=== PATIENT | male | born 1945 | race Caucasian/White ===

== ENCOUNTER 2020-07-04 14:01 | Outpatient (CLI) | payer MEDICARE, SELFPAY ==
--- NOTE | 2020-07-04 15:45 | USCV_ITS ---
Dajuan Presley Age: 74 Gender: M : 1945 Exam Date: 07/04/2020 14:40 Ordering Phys: Nahomi Quintana Technologist: Exam Location: [facility] [place] Indication: MURMUR BP: 143 / 84 HR: 88 Rhythm: Sinus Technical Quality: Poor MEASUREMENTS (Male / Female) Normal Values 2D ECHO LV Diastolic Diameter PLAX 5.6 cm 4.2 - 5.9 / 3.9 - 5.3 cm LV Systolic Diameter PLAX 3.0 cm IVS Diastolic Thickness 1.2 cm 0.6 - 1.0 / 0.6 - 0.9 cm IVS Systolic Thickness 1.5 cm LVPW Diastolic Thickness 1.0 cm 0.6 - 1.0 / 0.6 - 0.9 cm LVPW Systolic Thickness 1.3 cm LVOT Diameter 2.1 cm LV Ejection Fraction 2D Teich 76.1 % LA Diameter 4.2 cm LA Width 4.6 cm LA Height 6.7 cm RA Width 4.3 cm RA Height 6.1 cm M-MODE LV Diastolic Diameter MM 6.4 cm 4.2 - 5.9 / 3.9 - 5.3 cm LV Systolic Diameter MM 4.7 cm LV Ejection Fraction MM Teich 52.3 % IVS Diastolic Thickness MM 1.2 cm 0.6 - 1.0 / 0.6 - 0.9 cm IVS Systolic Thickness MM 2.1 cm LVPW Diastolic Thickness MM 1.4 cm 0.6 - 1.0 / 0.6 - 0.9 cm LVPW Systolic Thickness MM 2.1 cm RV Diastolic Diameter MM 2.0 cm Aortic Annulus Diameter 4.4 cm LA Ao Ratio MM 1.0 MV E Point Septal Separation 1.0 cm DOPPLER AV Peak Velocity 118.0 cm/s LVOT Peak Velocity 75.0 cm/s AV Area Cont Eq vti 2.1 cm squared AV Area Cont Eq pk 2.1 cm squared MV Area PHT 5.0 cm squared Mitral E to A Ratio 1.1 MV E' Velocity 38.0 cm/s Mitral E to MV E' Ratio 5.8 Mitral E to LV E' Lateral Ratio 4.9 Mitral E to LV E' Septal Ratio 7.2 TR Peak Velocity 163.0 cm/s TR Peak Gradient 10.6 mmHg TV Peak E Velocity 76.0 cm/s Right Atrial Pressure 3.0 mmHg Pulmonary Artery Systolic Pressu 13.6 mmHg PV Peak Velocity 87.0 cm/s FINDINGS Left Ventricle Normal LV size and ejection fraction of 55%. No gross wall motion abnormalities. Segmental wall motion analysis is difficult because of the poor ultrasonic window. Right Ventricle Normal right ventricular size and systolic function. Right Atrium Mildly increased right atrial size. Left Atrium Mildly increased left atrial size. Mitral Valve No gross abnormalities noted Aortic Valve Thickened aortic valve. Tricuspid Valve Leaflets could not visualized well Pulmonic Valve Pulmonic valve not well visualized. Pericardium No pericardial effusion. Aorta Normal aortic annulus size. CONCLUSIONS Normal LV size and ejection fraction of 55%. No gross wall motion abnormalities. Segmental wall motion analysis is difficult because of the poor ultrasonic window. Mild biatrial enlargement. Thickened aortic valve No significant stenotic or regurgitant lesions There are no intracardiac masses. There is no pericardial effusion. Technically somewhat difficult study because of poor ultrasonic window. Compared to the study from 02/19/2017, there may not be a significant change Dr Nandini Zimmerman MD FACC (Electronically Signed) Final Date: 04 Jul 2020 18:07 S
== END 2020-07-04 14:02 | disposition home or self-care (01) ==
LOC: RAD 14:05
PROVIDERS: PCP Nurse Practitioner Family; Visit Provider Nurse Practitioner Family
DX: N18.9 Chronic kidney disease, unspecified (principal); R06.02 Shortness of breath; R01.1 Cardiac murmur, unspecified; I51.7 Cardiomegaly; I35.8 Other nonrheumatic aortic valve disorders; I25.10 Atherosclerotic heart disease of native coronary artery without angina pectoris; I50.9 Heart failure, unspecified
CPT/HCPCS: 80048; 83880; 93306

== ENCOUNTER → 2020-07-31 12:06 | Outpatient (BNVA) | payer MEDICARE, SELFPAY | PROVIDERS: PCP Nurse Practitioner Family; Visit Provider Nurse Practitioner Family | DX: I48.91 Unspecified atrial fibrillation (principal); I50.9 Heart failure, unspecified; Z20.822 Contact with and (suspected) exposure to COVID-19 | CPT/HCPCS: 87635 ==

== ENCOUNTER 2020-08-07 10:36 | Day surgery (SDC) | payer MEDICARE, SELFPAY ==
[2020-08-03 14:10] VITALS: BMI 38.7
[2020-08-07 11:15] VITALS: BP 185/131; PULSE 83; RESP 18; TEMP 36.3; O2SAT 94
--- NOTE | 2020-08-07 11:22 | ECG_ITS ---
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 Measurements Intervals [place] Rate: 74 P: [place]: QRS: -21 QRSD: 129 T: 30 QT: 406 QTc: 453 Interpretive Statements ATRIAL FIBRILLATION BORDERLINE LEFT AXIS DEVIATION [QRS AXIS < -20] POSSIBLE RIGHT VENTRICULAR CONDUCTION DELAY [RSR (QR) IN V1/V2] No previous ECG available for comparison Electronically Signed On 08-07-2020 17:07:01 CDT by Derian Garcia M.D. [id number]
[2020-08-07] MEDS: sodium chloride 0.9% 1,000 ML 30 ML IV (11:47)
--- NOTE | 2020-08-07 11:53 | P.ANESASSM_ITS ---
Pre-Anesthetic Assessment Pre-Anesthetic Assessment: Height/Weight: Height 1.78 m Weight 122.47 kg Temp Pulse Resp BP Pulse Ox 97.3 F L 83 18 185/131 94 08/07/20 11:15 08/07/20 11:15 08/07/20 11:15 08/07/20 11:15 08/07/20 11:15 Preop Diagnosis: afib Proposed Procedure: Operation Date: 08/07/20 12:00 Proposed Procedures p VIDAL 42607 12811 I48.91(Not Applicable) - Bonita Montoya MD s Cardioversion(Not Applicable) - Bonita Montoya MD Familial anesthetic complications: none Was Beta Gideon taken within 24 hours: Yes Was Clonidine taken within 24 hours: N/A Last intake: Intake Last Liquid Date 08/06/20 Last Liquid Time 23:00 Last Solid Date 08/06/20 Last Solid Time 19:00 Last Intake: 19:00 Social: Social History: No alcohol and No tobacco Exam: Pre-Anes Outpt Exam: alert, oriented x 3, clear to auscultation bilaterally and regular rate & rhythm (irregular) Airway: Submandibular: WNL Cervical ROM: WNL MP: 2 Dentition: Full (missing lower front) Pulmonary: Pulmonary: COPD, LIU and SOB CV/HEM: CV/HEM: Afib, CHF and HTN : : None reported Hepatic: Hepatic: None reported GI: GI: GERD (food related) Metabolic: Metabolic: Morbid obesity Musc/skel: Musc/skel: Lower Back Pain and OA/DJD Neuropsych: Neuropsych: None reported Anesthetic Plan: ASA status: 3 Anesthesia: MAC Risk of > 500 ml blood loss (7ml/kg in children): No Meds/Allergies Current Medications: Current Medications Generic Name Dose Route Start Last Admin Trade Name Freq PRN Reason Stop Dose Admin Sodium Chloride 1,000 mls @ 30 ml s/hr 08/07/20 11:15 08/07/20 11:47 Sodium Chloride 0.9% IV 08/08/20 11:14 30 mls/hr .Q24H GENESIS Administration PFSH Anesthesia PFSH: Medical History Arthritis ASHD (arteriosclerotic heart disease) BPH (benign prostatic hyperplasia) CHF (congestive heart failure) Chronic kidney disease Chronic migraine History of TIA (transient ischemic attack) HTN (hypertension) Surgical History S/P carpal tunnel release S/P knee replacement S/P shoulder surgery Family History Mother , AT AGE 76 BRAIN ANEURYSM No problems noted. Father , AT AGE 84 SIGNAL PROCESSING ENGINEER,HEART DISEASE Cancer PROSTATE CAD (coronary artery disease) Social History Smoking and tobacco status: former smoker Alcohol intake: unknown Adopted: No Caregiver/support person: No Lives independently: Yes Marital status: / Current occupational status: retired History of recent travel: No Current gender identity: Male Data Anesthesia Cardiac Studies: No Data to Display
--- NOTE | 2020-08-07 12:00 | USCV_ITS ---
Dajuan Presley Age: 74 Gender: M : 1945 Exam Date: 08/07/2020 12:27 Ordering Phys: Nahomi Quintana Technologist: STALIN Exam Location: [facility] [place] Indication: AFIB BP: / HR: Rhythm: Sinus Technical Quality: Good MEASUREMENTS (Male / Female) Normal Values Medications Patient given IV sedation by anesthesia service, for details please refer to the anesthesia report. Complications None. Proc. Components VIDAL was performed at multiple levels. FINDINGS Left Ventricle Normal left ventricular cavity size. Normal left ventricular systolic function. Left ventricular ejection fraction is estimated at 60 %. No diagnostic regional wall motion abnormalities. Right Ventricle Normal right ventricular size and systolic function. Right Atrium Mildly increased right atrial size. Left Atrium Mildly increased left atrial size. LA Appendage Normal left atrial appendage. Normal flow velocities in the left atrial appendage. No thrombus visualized in the left atrial appendage. IA Septum Lipomatous hypertrophy of interatrial septum. Aneurysmal interatrial septum. No evidence of ASD or PFO by color Doppler or agitated saline study. Mitral Valve Structurally normal mitral valve. No mitral valve stenosis. Trace mitral valve regurgitation. Aortic Valve Structurally normal trileaflet aortic valve. No aortic valve stenosis. Trace aortic valve regurgitation. Tricuspid Valve Structurally normal tricuspid valve. Mild tricuspid valve regurgitation. Pulmonic Valve Structurally normal pulmonic valve. No pulmonary valve stenosis. Trace pulmonary valve regurgitation. Pericardium No pericardial effusion. Aorta Normal size aortic root and proximal ascending aorta. No evidence of aortic dilation aneurysm or dissection. CONCLUSIONS 1. Normal left ventricular cavity size. Normal left ventricular systolic function. Left ventricular ejection fraction is estimated at 60 %. No diagnostic regional wall motion abnormalities. 2. Normal right ventricular size and systolic function. 3. Mild biatrial enlargement. 4. Lipomatous hypertrophy of interatrial septum. Aneurysmal interatrial septum. No evidence of ASD or PFO by color Doppler or agitated saline study. 5. No left atrial or left atrial appendage thrombus visualized. Bonita Montoya MD (Electronically Signed) Final Date: 10 August 2020 16:12 S
--- NOTE | 2020-08-07 12:02 | P.HP_ITS ---
Same Day Surgery H&P Indication for Procedure/HPI DATE OF PROCEDURE: August 07, 2020 CHIEF COMPLAINT/INDICATIONFOR SURGICAL PROCEDURE: 72 yo man with symptomatic atrial fibrillation presented for elective cardioversion. He has h/o non obstructive CAD be coronary angiogram, BPH, HTN, h/o TIA, obesity and preserved LV function on last TTE. He is currently on xarelto and metoprolol. PREOP DIAGNOSIS: afib PLANNED PROCEDRUE: Operation Date: 08/07/20 12:00 Proposed Procedures p VIDAL [id number] 99607 I48.91(Not Applicable) - Bonita Montoya MD s Cardioversion(Not Applicable) - Bonita Montoya MD Medications/Allergies* Home Medications Medication Instructions Recorded Confirmed Type albuterol sulfate 90 mcg/actuation 2 puff INHALATION Q6H PRN 05/04/19 08/03/20 History aerosol inhaler potassium chloride 10 mEq 10 meq PO DAILY 05/04/19 08/03/20 History capsule,extended release tamsulosin 0.4 mg capsule 0.4 mg PO DAILY 05/04/19 08/03/20 History lisinopril-hydrochlorothiazide 1 tab PO DAILY 08/03/20 08/03/20 History oxycodone 15 mg PO TID PRN 08/03/20 08/03/20 History Allergies/Adverse Reactions Allergy/AdvReac Type Severity Reaction Status Date / Time pentazocine [From Guera] Allergy Unknown Unknown Verified 06/20/20 14:31 Current Medications: Generic Name Dose Route Start Last Admin Trade Name Freq PRN Reason Stop Dose Admin Sodium Chloride 1,000 mls @ 30 mls/hr 08/07/20 11:15 08/07/20 11:47 Sodium Chloride 0.9% IV 08/08/20 11:14 30 mls/hr .Q24H GENESIS Administration Pertinent History/Comorbid Conditions* Medical History (Updated 06/06/20 @ 15:56 by AARON Hong) Arthritis ASHD (arteriosclerotic heart disease) BPH (benign prostatic hyperplasia) CHF (congestive heart failure) Chronic kidney disease Chronic migraine History of TIA (transient ischemic attack) HTN (hypertension) Surgical History (Updated 06/06/20 @ 15:10 by AARON Hong) S/P carpal tunnel release S/P knee replacement S/P shoulder surgery Family History (Updated 05/18/19 @ 15:04 by HARMONY Mccracken) Father, AT AGE 84 FIBER OPTIC SPLICER,HEART DISEASE Mother, AT AGE 76 BRAIN ANEURYSM CAD (coronary artery disease) Father Cancer Father PROSTATE Social History Smoking and tobacco status: former smoker Alcohol intake: unknown Adopted: No Caregiver/support person: No Lives independently: Yes Marital status: / Current occupational status: retired History of recent travel: No Current gender identity: Male Pertinent Exam Findings alert, oriented x 3 and procedure specific exam findings (irregularly iregular.) Recommendations Surgery/Procedure today Coding Level of Care Code 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
[2020-08-07 12:55] VITALS: BP 127/84; PULSE 70; RESP 16; TEMP 36; O2SAT 89
--- NOTE | 2020-08-07 13:00 | PM.ACPR ---
Procedure/Consent Time out: Time Out Performed: Yes Consent: Consent for Procedure: Consent obtained from patient, Risks & Benefits reviewed and Agrees to proceed with procedure Procedure Narrative: VIDAL Procedure note Indication: Symptomatic atrial fibrillation Sedation: Propofol by anesthesia The patient was brought down to the GI lab. Procedure was explained to the patient in detail and informed consent was obtained. Timeout was called. After achieving adequate sedation, the probe was inserted on first attempt. No blood on the probe post procedure. Prelim report: Normal left ventricle size and systolic function. No left atrial or left atrial appendage mass or thrombus visualized. No ASD or PFO identified. Full report to follow. Cardioversion procedure note. Indication: Symptomatic atrial fibrillation Anticoagulation: Xarelto Sedation: Propofol by anesthesia Pads were placed anteroposteriorly. After ensuring no left atrial/left atrial appendage thrombus decision was made to proceed with cardioversion. [He received 150 J of synchronized biphasic shock ?1 with voodoo of normal sinus rhythm. Patient tolerated the procedure well. Recovery: In unit Disposition: Patient to be discharged later today. Dose of metoprolol tartrate was decreased to 25 mg twice a day. Patient was started on amiodarone 200 mg twice a day for 3 weeks and then 200 mg daily. Follow-up with Ms. Quintana in [facility] for follow-up EKG in 1 to 2 weeks. Acute Procedures Epistaxis Control: Time out performed: Yes
--- NOTE | 2020-08-07 13:04 | ECG_ITS ---
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 Measurements Intervals [place] Rate: 60 P: 269 AK: 155 QRS: -26 QRSD: 114 T: -20 QT: 431 QTc: 433 Interpretive Statements SINUS RHYTHM BORDERLINE LEFT AXIS DEVIATION [QRS AXIS < -20] MODERATE INTRAVENTRICULAR CONDUCTION DELAY [110+ ms QRS DURATION] MODERATE ST DEPRESSION [0.05+ mV ST DEPRESSION] Compared to ECG 08/07/2020 11:34:48 Intraventricular conduction delay now present ST (T wave) deviation now present Atrial fibrillation no longer present Electronically Signed On 08-07-2020 17:05:54 CDT by Derian Garcia M.D. [email or web address].[email or web address] infantsC[employer]other[employer].[facility].[employer]/store/OM/[id number]
[2020-08-07 13:10] VITALS: BP 133/86; PULSE 63; RESP 20; O2SAT 96
[2020-08-07 13:23] VITALS: PULSE 61; RESP 20; O2SAT 92
[2020-08-07 13:49] LABS: Basophils % 0.5 %; Eosinophils # 0.1 10^3/uL (0.0-0.8); Hematocrit 49.8 % (42.0-52.0); Hemoglobin 16.4 g/dL (11.7-16.6); Lymphocytes # 1.9 10^3/uL (0.8-4.8); Lymphocytes % 29.7 %; Mean Corpuscular HGB Conc 32.9 g/dL (30.0-36.0); Mean Corpuscular Hemoglobin 32.5 pg (28.0-34.0); Mean Corpuscular Volume 98.6 fL (80-94); Mean Platelet Volume 11.9 fL (7.4-10.4); Monocytes # 0.6 10^3/uL (0.2-0.9); Monocytes % 9.3 %; Neutrophils # 3.77 10^3/uL (1.8-7.7); Neutrophils % 58.2 %; Nucleated Red Blood Cells % 0 %; Platelet Count 106 10^3/cmm (130-400); Red Blood Count 5.05 10^6/uL (4.1-5.3); Red Cell Distribution Width 13.3 % (12.1-15.1); White Blood Count 6.5 10^3/uL (4.0-10.0)
[2020-08-07 14:08] LABS: Alanine Aminotransferase 13 U/L (0-41); Albumin Level 3.8 g/dL (3.5-5.2); Alkaline Phosphatase 71 IU/L (40-130); Anion Gap 11.7 (5-19); Aspartate Amino Transferase 23 U/L (0-40); Blood Urea Nitrogen 13 mg/dL (8-23); Calcium 8.7 mg/dL (8.5-10.5); Carbon Dioxide 32 mmol/L (22-29); Chloride 97 mmol/L (98-107); Globulin 3.3 g/dL (1.3-4.6); Glucose 102 mg/dL (65-115); NT Pro B Type Natriuretic Pept 802 pg/mL (0-450); Osmolality Calculated 284 mOsm/kg (285-295); Potassium 3.7 mmol/L (3.5-5.1); Sodium 137 mmol/L (136-145); Thyroid Stimulating Hormone 1.89 uIU/mL (0.27-4.20); Total Bilirubin 0.6 mg/dL (0.15-1.2); Total Protein 7.1 g/dL (6.6-8.7)
--- NOTE | 2020-08-07 21:24 | ANE.PACU2 ---
Inpatient post-anesthesia follow up: Airway intact: Yes Vital signs: Temperature 96.8 F Pulse Rate 61 Respiratory Rate 20 Blood Pressure 133/86 Pulse Oximetry 92 Oxygen Delivery Me thod Room Air Oxygen Flow Rate 2 Fraction of Inspir ed Oxygen Hydration adequate: Yes Nausea and vomiting: No Pain level: 2 Mental status: Baseline
== END 2020-08-07 13:50 | disposition home or self-care (01) ==
PROVIDERS: Internal Medicine Cardiovascular Disease; PCP Nurse Practitioner Family; Visit Provider Nurse Practitioner Family
PROC: (CPT 93312; principal; 2020-08-07 12:00)
PROC: 5A2204Z Restoration of Cardiac Rhythm, Single (ICD-10-PCS; 2020-08-07 12:00)
DX: I48.91 Unspecified atrial fibrillation (principal); J44.9 Chronic obstructive pulmonary disease, unspecified; I13.0 Hypertensive heart and chronic kidney disease with heart failure and stage 1 through stage 4 chronic kidney disease, or unspecified chronic kidney disease; I50.9 Heart failure, unspecified; N18.9 Chronic kidney disease, unspecified; K21.9 Gastro-esophageal reflux disease without esophagitis; E66.01 Morbid (severe) obesity due to excess calories; Z68.38 Body mass index [BMI] 38.0-38.9, adult; N40.0 Benign prostatic hyperplasia without lower urinary tract symptoms; Z86.73 Personal history of transient ischemic attack (TIA), and cerebral infarction without residual deficits; Z87.891 Personal history of nicotine dependence; Z79.01 Long term (current) use of anticoagulants; Z79.891 Long term (current) use of opiate analgesic; M19.90 Unspecified osteoarthritis, unspecified site
CPT/HCPCS: 36415; 80053; 83880; 84443; 85025; 92960; 93005; 93312; 93318; 93320; 93325; 96360; J2704; J7030

== ENCOUNTER 2021-03-18 17:09 | Emergency (ER) | payer MEDICARE, SELFPAY ==
--- NOTE | 2021-03-18 17:29 | XRR_ITS ---
PROCEDURE INFORMATION: Exam: XR Chest Exam date and time: 03/18/2021 5:29 PM Age: 75 years old Clinical indication: Shortness of breath and other: Cp; Additional info: Dyspnea TECHNIQUE: Imaging protocol: XR of the chest. Views: 1 view. COMPARISON: No relevant prior studies available. FINDINGS: Lungs: Hyperinflated lungs. No consolidation. Pleural spaces: Unremarkable. No pleural effusion. No pneumothorax. Heart/Mediastinum: Unremarkable. No cardiomegaly. Bones/joints: Visualized osseous structures are intact. XR/XR chest 1V portable [id number] IMPRESSION: No acute findings.
[2021-03-18 17:34] VITALS: BP 151/83; PULSE 70; RESP 16; TEMP 36.5; O2SAT 96
[2021-03-18 19:07] LABS: Basophils % 0.4 %; Eosinophils # 0.1 10^3/uL (0.0-0.8); Eosinophils % 1.5 %; Hematocrit 50.2 % (42.0-52.0); Hemoglobin 16.6 g/dL (11.7-16.6); Lymphocytes # 2.9 10^3/uL (0.8-4.8); Lymphocytes % 31.6 %; Mean Corpuscular HGB Conc 33.1 g/dL (30.0-36.0); Mean Corpuscular Hemoglobin 31.9 pg (28.0-34.0); Mean Corpuscular Volume 96.5 fl (80-94); Mean Platelet Volume 10.8 fL (7.4-10.4); Monocytes # 0.9 10^3/uL (0.2-0.9); Monocytes % 9.6 %; Neutrophils # 5.19 10^3/uL (1.8-7.7); Neutrophils % 56.4 %; Nucleated Red Blood Cells % 0 %; Platelet Count 132 10^3/cmm (130-400); Red Cell Distribution Width 13.3 % (12.1-15.1); White Blood Count 9.2 10^3/uL (4.0-10.0)
[2021-03-18 19:24] LABS: Troponin(5th) Baseline 37 ng/L (0-15)
[2021-03-18 19:25] LABS: Alanine Aminotransferase 21 U/L (0-41); Albumin Level 4.1 g/dL (3.5-5.2); Alkaline Phosphatase 111 IU/L (40-130); Anion Gap 16.7 (5-19); Aspartate Amino Transferase 26 U/L (0-40); Blood Urea Nitrogen 14 mg/dL (8-23); Calcium 8.7 mg/dL (8.5-10.5); Carbon Dioxide 27 mmol/L (22-29); Chloride 98 mmol/L (98-107); Globulin 2.8 g/dL (1.3-4.6); Glucose 98 mg/dL (65-115); Osmolality Calculated 286 mOsm/kg (285-295); Potassium 3.7 mmol/L (3.5-5.1); Sodium 138 mmol/L (136-145); Total Bilirubin 0.3 mg/dL (0.15-1.2); Total Protein 6.9 g/dL (6.6-8.7)
--- NOTE | 2021-03-18 19:29 | ECG_ITS ---
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1945 Requested By: Kaushik Swain Order Number: [id number] Reading MD: SONIDO DIAS Measurements Intervals [place] Rate: 68 P: -63 MI: 113 QRS: -12 QRSD: 128 T: 36 QT: 426 QTc: 453 Interpretive Statements JUNCTIONAL RHYTHM MODERATE INTRAVENTRICULAR CONDUCTION DELAY [110+ ms QRS DURATION] ABNORMAL RHYTHM ECG Compared to ECG 08/07/2020 13:18:26 Junctional rhythm now present Sinus rhythm no longer present ST (T wave) deviation no longer present Electronically Signed On 03-18-2021 20:55:11 WAREHOUSE SUPERVISOR 3RD SHIFT by SONIDO DIAS [email or web address].[email or web address]/store/[id number]
[2021-03-18 20:36] VITALS: BP 146/84; PULSE 94; RESP 22; O2SAT 96
[2021-03-18 20:57] LABS: NT Pro B Type Natriuretic Pept 125 pg/mL (0-450)
[2021-03-18 20:58] LABS: Troponin 5 2HR 35.59 ng/L (0-15)
[2021-03-18 20:59] LABS: Troponin 5 2HR Delta -1.41 ABS# (0-10)
--- NOTE | 2021-03-18 21:01 | W.ED.CHESTPA ---
HPI - Chest Pain General: Chief Complaint: Chest Pain Stated Complaint: Chest Pain SOB Time Seen by Provider: 03/18/21 20:10 Source: patient Mode of arrival: ambulatory Limitations: no limitations History of Present Illness: HPI narrative: 75-year-old male states that he is had a cough congestion and increased shortness of breath over the last 2 to 3 days he states he has been having pain also when he coughs. He is in no distress here no known sick contacts he is vaccinated for COVID. Denies any increased water weight denies any vomiting or diarrhea. Associated symptoms: Deny abdominal pain, fever(s), nausea or vomiting Review of Systems Const: Denies: fever(s), chills, body aches or change in appetite Eyes: Denies: blurry vision or eye discomfort ENMT: Denies: throat pain or dental pain Card: Reports: chest pain Resp: Reports: non-productive cough and wheezing GI: Denies: abdominal pain, nausea, vomiting or diarrhea : Denies: dysuria Musc: Denies: neck pain or back pain Skin/Breast: Denies: rash Neuro: Denies: headache(s) Psych: Denies: depression Matti/Lymph: Denies: easy bruising All/Imm: Denies: urticaria PFSH ED PFSH: Medical History Arthritis ASHD (arteriosclerotic heart disease) BPH (benign prostatic hyperplasia) CHF (congestive heart failure) Chronic kidney disease Chronic migraine History of TIA (transient ischemic attack) HTN (hypertension) Surgical History S/P carpal tunnel release S/P knee replacement S/P shoulder surgery Family History Mother , AT AGE 76 BRAIN ANEURYSM No problems noted. Father , AT AGE 84 HIM DIRECTOR,HEART DISEASE Cancer PROSTATE CAD (coronary artery disease) Social History Smoking and tobacco status: former smoker Alcohol intake: unknown Adopted: No Caregiver/support person: No Lives independently: Yes Marital status: / Current occupational status: retired History of recent travel: No Current gender identity: Male Physical Exam Const: COMMON NORMALS: no acute distress, patient oriented x3 and healthy appearing HENMT: COMMON NORMALS: normocephalic and atraumatic HEAD & SCALP: normocephalic and atraumatic Eye: COMMON NORMALS: Equal, round and reactive pupils present and EOMs intact bilaterally PUPIL: Yes Equal, round and reactive pupils present Neck/C-Spine: COMMON NORMALS: full ROM and supple Chest: COMMONS NORMALS: normal inspection of the chest and normal palpation of entire chest wall Resp: COMMON NORMALS: normal respiratory effort, No retractions, No use of accessory muscles and clear to auscultation bilaterally AUSCULTATION: clear to auscultation bilaterally Cardio: COMMON NORMALS: regular rate, regular rhythm and No murmurs present (Cardio) RATE: regular rate RHYTHM: regular rhythm GI: COMMON NORMALS: Normal to inspection, nondistended, normoactive bowel sounds present, Soft to palpation, non-tender and no masses PALPATION: Yes Soft to palpation Extremity: COMMON NORMALS: normal to inspection and full ROM Neuro: COMMON NORMALS: patient oriented x3, moves all extremities and no focal motor deficits Psych: COMMON NORMALS: mental status grossly normal, Normal thought process present and cooperative THOUGHT PROCESS: Normal thought process present Skin: COMMON NORMALS: no rashes or lesions noted and no wounds GENERAL SKIN EXAM: no rashes or lesions noted Course Vital Signs: Vital signs: Vital Signs Temperature 97.7 F 03/18/21 17:34 Pulse Rate 70 03/18/21 17:34 Respiratory Rate 16 03/18/21 17:34 Blood Pressure 151/83 03/18/21 17:34 Pulse Oximetry 96 03/18/21 17:34 MDM - Chest Pain MDM Narrative: Medical decision making narrative: Patient presents here with cough congestion along with some chest pain. Patient likely a COPD exacerbation repeat troponins negative no signs of acute coronary syndrome no signs of pulmonary embolism we will place him on 5 days steroids we will do an outpatient COVID he is to follow-up PCP and return if worsening. Lab Data: Labs: Lab Results 03/18/21 03/18/21 03/18/21 18:52 18:52 18:52 WBC 9.2 10^3/uL 10^3/ uL (4.0-10.0) RBC 5.20 10^6/uL 10^6 /uL (4.1-5.3) Hgb 16.6 g/dL g/dL (11.7-16.6) Hct 50.2 % % (42.0-52.0) MCV 96.5 fl H fl (80-94) MCH 31.9 pg pg (28.0-34.0) MCHC 33.1 g/dL g/dL (30.0-36.0) RDW 13.3 % % (12.1-15.1) Plt Count 132 10^3/cmm 10^3 /cmm (130-400) MPV 10.8 fL H fL (7.4-10.4) Neut % (Auto) 56.4 % % Lymph % (Auto) 31.6 % % Franklin % (Auto) 9.6 % % Eos % (Auto) 1.5 % % Baso % (Auto) 0.4 % % Neut # (Auto) 5.19 10^3/uL 10^3 /uL (1.8-7.7) Lymph # (Auto) 2.9 10^3/uL 10^3/ uL (0.8-4.8) Franklin # (Auto) 0.9 10^3/uL 10^3/ uL (0.2-0.9) Eos # (Auto) 0.1 10^3/uL 10^3/ uL (0.0-0.8) Baso # (Auto) 0.0 10^3/uL 10^3/ uL (0.0-0.1) Nucleated RBC % (a uto) 0 % % Nucleated RBCs # 0.0 /100WBC /100W BC Sodium 138 mmol/L mmol/L (136-145) Potassium 3.7 mmol/L mmol/L (3.5-5.1) Chloride 98 mmol/L mmol/L (98-107) Carbon Dioxide 27 mmol/L mmol/L (22-29) Anion Gap 16.7 (5-19) BUN 14 mg/dL mg/dL (8-23) Creatinine 0.9 mg/dL mg/dL (0.7-1.2) GFR Calculation Not Reportable Glucose 98 mg/dL mg/dL (65-115) Calculated Osmolal ity 286 mOsm/kg mOsm/ kg (285-295) Calcium 8.7 mg/dL mg/dL (8.5-10.5) Total Bilirubin 0.3 mg/dL mg/dL (0.15-1.2) AST 26 U/L U/L (0-40) ALT 21 U/L U/L (0-41) Alkaline Phosphata se 111 IU/L IU/L (40-130) Troponin T Baselin e 37 ng/L H ng/L (0-15) Troponin T 120 Min [place] Delta Troponin T NT-Pro-B Natriuret Pep Total Protein 6.9 g/dL g/dL (6.6-8.7) Albumin 4.1 g/dL g/dL (3.5-5.2) Globulin 2.8 g/dL g/dL (1.3-4.6) 03/18/21 03/18/21 18:52 20:34 WBC RBC Hgb Hct MCV MCH MCHC RDW Plt Count MPV Neut % (Auto) Lymph % (Auto) Franklin % (Auto) Eos % (Auto) Baso % (Auto) Neut # (Auto) Lymph # (Auto) Franklin # (Auto) Eos # (Auto) Baso # (Auto) Nucleated RBC % (a uto) Nucleated RBCs # Sodium Potassium Chloride Carbon Dioxide Anion Gap BUN Creatinine GFR Calculation Glucose Calculated Osmolal ity Calcium Total Bilirubin AST ALT Alkaline Phosphata se Troponin T Baselin e Troponin T 120 Min [place] 35.59 ng/L H ng/L (0-15) Delta Troponin T -1.41 ABS# L ABS# (0-10) NT-Pro-B Natriuret Pep 125 pg/mL pg/mL (0-450) Total Protein Albumin Globulin Discharge Plan Discharge Patient Disposition: Home Clinical Impression: Atypical chest pain, COPD exacerbation Condition: Stable Prescriptions: New prednisone 50 mg tablet 50 mg PO DAILY Qty: 5 RF: 0 No Action albuterol sulfate [ProAir HFA] 90 mcg/actuation HFA aerosol inhaler 2 puff INHALATION Q6H PRN (Reason: Allergy Symptoms) RF: 0 tamsulosin 0.4 mg capsule 0.4 mg PO DAILY RF: 0 potassium chloride 10 mEq capsule, extended release 10 meq PO DAILY RF: 0 zolpidem 6.25 mg tablet,ext release multiphase PO RF: 0 diphenhydramine HCl [Allergy (diphenhydramine)] 25 mg capsule 25 mg PO TID PRNRF: 0 lydrilb-kbghwnagew-YOG-caff [Butalbital Compound W/Codeine] 63-50-734-40 mg capsule 1 cap PO Q6H PRNRF: 0 amiodarone 200 mg tablet 100 mg PO DAILY Qty: 30 RF: 3 Hold Instructions: Doctor's Order furosemide 40 mg tablet 40 mg PO DAILY Qty: 30 RF: 1 metoprolol tartrate 25 mg tablet 25 mg PO BID Qty: 60 RF: 0 Hold Instructions: Doctor's Order lisinopril-hydrochlorothiazide 20-12.5 mg Tablet 1 tab PO DAILY RF: 0 oxycodone 15 mg Tablet 15 mg PO TID PRN (Reason: Pain) RF: 0 Discharge Orders: Discharge ED (Routine); Ordered 03/18/21 Ordered By: Elsy Beyer Referrals: Celine Andersen FNP [Primary Care Provider] - 1-3 days Discharge Diet: Advance as tolerated Discharge Activity: Resume usual activity Patient Instructions: COPD (Chronic Obstructive Pulmonary Disease) (ED) Coding Level of Care Code ED 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
[2021-03-18] MEDS: predniSONE 20 mg Tablet 60 MG PO (21:13)
[2021-03-18 21:27] VITALS: PULSE 66; RESP 16; O2SAT 96
[2021-03-18] MEDS: ipratropium-albuterol 3 mL Neb INHALATION (22:01)
[2021-03-18 22:08] VITALS: BP 146/92; PULSE 82; RESP 16; O2SAT 94
--- NOTE | 2021-03-18 23:29 | ECG_ITS ---
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1945 Requested By: Kaushik Swain Order Number: [id number] Stevie MD: SONIDO DIAS Measurements Intervals [place] Rate: 67 P: -88 KS: 109 QRS: -14 QRSD: 133 T: 30 QT: 423 QTc: 449 Interpretive Statements JUNCTIONAL RHYTHM WITH OCCASIONAL VENTRICULAR PREMATURE COMPLEXES INTRAVENTRICULAR CONDUCTION DELAY [130+ ms QRS DURATION] Compared to ECG 08/07/2020 13:18:26 Junctional rhythm now present Ventricular premature complex(es) now present Sinus rhythm no longer present ST (T wave) deviation no longer present Electronically Signed On 03-18-2021 20:55:09 CONTROL INTEGRATION ENGINEER by SONIDO DIAS [id number]
== END 2021-03-18 22:09 | disposition home or self-care (01) ==
PROVIDERS: Emergency Medicine; Nurse Practitioner Family; Emergency Provider Emergency Medicine; PCP Nurse Practitioner Family
DX: R07.89 Other chest pain (principal); J44.1 Chronic obstructive pulmonary disease with (acute) exacerbation; I11.0 Hypertensive heart disease with heart failure; I50.9 Heart failure, unspecified; Z86.73 Personal history of transient ischemic attack (TIA), and cerebral infarction without residual deficits; Z87.891 Personal history of nicotine dependence
CPT/HCPCS: 71045; 80053; 83880; 84484; 85025; 93005; 94640; 99283; J7512

== ENCOUNTER 2021-05-20 10:45 | Emergency (ER) | payer MEDICARE, SELFPAY ==
[2021-05-20 10:59] VITALS: BP 158/99; PULSE 93; RESP 16; O2SAT 96
--- NOTE | 2021-05-20 11:00 | ED_ITS ---
HPI - Headache General: Chief Complaint: Headache Stated Complaint: mirgaine Time Seen by Provider: 05/20/21 10:49 History of Present Illness: Mr Presley is a 75-year-old gentleman with significant past medical history of hypertension, heart failure, CAD, A. fib and history of stroke who presents to the emergency department due to severe headache. Onset of symptoms was 3 days ago and subacute. He denies known specific provoking factor and denies head trauma. He endorses left-sided headache with associated photosensitivity. Aching, sharp, throbbing in character. He denies other typical migraine features but does describe his headache as migraine. Course has persisted. Has tried home medications which typically improve symptoms without significant relief. Denies numbness, tingling, speech difficulty, or confusion. Does report an off-balance feeling. Other than mild shortness of breath he denies other significant changes in health. No infectious symptoms or neck stiffness. No other specific changes in health, exacerbating, or alleviating factors identified. Pertinent past history: migraines and other Onset (ago): day(s) Onset description: suddenly Location: left Severity: severe Exacerbating factors: light Treatments prior to arrival: migraine medication Review of Systems General: Reports: 10 or more systems reviewed and unremarkable except in HPI and below PFSH ED PFSH: Medical History Arthritis ASHD (arteriosclerotic heart disease) BPH (benign prostatic hyperplasia) CHF (congestive heart failure) Chronic kidney disease Chronic migraine History of TIA (transient ischemic attack) HTN (hypertension) Surgical History S/P carpal tunnel release S/P knee replacement S/P shoulder surgery Family History Mother , AT AGE 76 BRAIN ANEURYSM No problems noted. Father , AT AGE 84 COMMERCIAL REAL ESTATE MANAGER,HEART DISEASE Cancer PROSTATE CAD (coronary artery disease) Social History Smoking and tobacco status: former smoker Alcohol intake: unknown Adopted: No Caregiver/support person: No Lives independently: Yes Marital status: / Current occupational status: retired History of recent travel: No Current gender identity: Male Physical Exam Const: COMMON NORMALS: patient oriented x3 and alert GENERAL APPEARANCE: cooperative, well developed and other (uncomfortable due to headache) HENMT: COMMON NORMALS: normocephalic and atraumatic HEAD & SCALP: normo cephalic and atraumatic Eye: COMMON NORMALS: conjunctivae normal CONJUNCTIVA: Yes conjunctivae normal SCLERA: sclerae normal Neck/C-Spine: COMMON NORMALS: supple and no meningeal signs GENERAL: Yes trachea midline Resp: COMMON NORMALS: normal respiratory effort EFFORT & INSPECTION: Yes able to speak in complete sentences AUSCULTATION: diminished lung sounds Cardio: COMMON NORMALS: regular rate and regular rhythm RATE: regular rate RHYTHM: regular rhythm GI: COMMON NORMALS: Soft to palpation PALPATION: Yes Soft to palpation and No Tenderness to palpation present (GI) Extremity: GENERAL: Yes normal exam except as noted and No edema Neuro: COMMON NORMALS: patient oriented x3, CN's II-XII intact bilaterally, moves all extremities, no focal motor deficits and no sensory deficits noted SENSORIUM/ORIENTATION: Yes alert and No Orientation impaired MENINGEAL SIGNS: Yes no meningeal signs Psych: COMMON NORMALS: mental status grossly normal and Normal thought process present THOUGHT PROCESS: Normal thought process present Course ED course: - Patient was seen and evaluated by me at bedside - Patient placed on cardiac monitors, IV access obtained - Initial evaluation notable for uncomfortable appearance, patient has mask on due to degree of photosensitivity - Labs and xrays personally interpreted by me - Headache treatment ordered - Labs notable for No leukocytosis, normal hemoglobin. Metabolic panel with hyperglycemia without evidence of DKA, discussed with patient. - Given complex past medical history including history of intracranial hemorrhage and severity of patient's reported headache imaging is warranted. Imaging notable for no acute intracranial abnormality to explain symptoms. Chest x-ray without lobar consolidation or pneumothorax. - Upon serial reexamination after treatment the patient was initially similar however after additional headache treatment ordered the patient had marked improvement in headache with near complete resolution. Steroids ordered for additional prophylaxis. - Based on patient history, evaluation, and testing as interpreted the most likely cause of the patient's condition is [] - The results of ED evaluation were discussed with the patient including prescriptions and/or symptomatic cares (if applicable) including appropriate and responsible use, followup plan, and return precautions. The patient verbalized understanding and felt safe for discharge. - Patient discharged in satisfactory condition. Note: Click bubbles or prepopulated mireles in note writing are used for assistance with data collection and billing and are inherently more limited than narrative and other text portions of this note. Please use narrative for additional clinical history and defer to narrative/free test for any case of contradictory information. If information appears in only free text or click bubble it should be considered present or absent as reported. Please contact note senior grant writer for clarifications of clinical information or contradictory information. MDM is a brief summary, contradictory or erroneous seeming information should be clarified and full note should be reviewed. Vital Signs: Vital signs: Vital Signs Temperature 97.8 F 05/20/21 11:08 Pulse Rate 86 05/20/21 11:08 Respiratory Rate 18 05/20/21 12:33 Blood Pressure 144/100 05/20/21 11:08 Pulse Oximetry 95 05/20/21 11:08 MDM - Headache Medical Decision Making 75-year-old gentleman with complex past medical history including history of intracranial hemorrhage presenting with severe headache. No focal neurologic deficits. Symptom description likely migrainous in nature with history of migraines. Markedly improved with second line headache treatment. Satisfactory for outpatient management. Medical Records I reviewed the patient's medical records. Lab Data I reviewed the patient's lab results. : 05/20/21 11:15 05/20/21 11:[address] 05/20/21 11:02 IMPRESSION: 1. No evidence of intracranial hemorrhage or mass effect. 2. Moderate small vessel changes with moderate parenchymal volume loss. 3. Prior postoperative changes LEFT frontoparietal pterional craniotomy with mild postoperative soft tissue thickening or trace fluid deep to the craniotomy measuring 4.7 mm. 4. No acute intracranial findings. Chest X-Ray 05/20/21 11:05 IMPRESSION: No acute cardiopulmonary abnormality. Laboratory Results WBC 6.0 10^3/uL (4.0-10.0) 05/20/21 11:15 RBC 4.74 10^6/uL (4.1-5.3) 05/20/21 11:15 Hgb 15.7 g/dL (11.7-16.6) 05/20/21 11:15 Hct 46.6 % (42.0-52.0) 05/20/21 11:15 MCV 98.3 fl (80-94) H 05/20/21 11:15 MCH 33.1 pg (28.0-34.0) 05/20/21 11:15 MCHC 33.7 g/dL (30.0-36.0) 05/20/21 11:15 RDW 12.7 % (12.1-15.1) 05/20/21 11:15 Plt Count 125 10^3/cmm (130-400) L 05/20/21 11:15 MPV 11.2 fL (7.4-10.4) H 05/20/21 11:15 Neut % (Auto) 65.5 % 05/20/21 11:15 Lymph % (Auto) 25.0 % 05/20/21 11:15 [place] % (Auto) 6.3 % 05/20/21 11:15 Eos % (Auto) 2.2 % 05/20/21 11:15 Baso % (Auto) 0.5 % 05/20/21 11:15 Neut # (Auto) 3.93 10^3/uL (1.8-7.7) 05/20/21 11:15 Lymph # (Auto) 1.5 10^3/uL (0.8-4.8) 05/20/21 11:15 [place] # (Auto) 0.4 10^3/uL (0.2-0.9) 05/20/21 11:15 Eos # (Auto) 0.1 10^3/uL (0.0-0.8) 05/20/21 11:15 Baso # (Auto) 0.0 10^3/uL (0.0-0.1) 05/20/21 11:15 Nucleated RBC % (auto) 0 % 05/20/21 11:15 Nucleated RBCs # 0.0 /100WBC 05/20/21 11:15 Sodium 139 mmol/L (136-145) 05/20/21 11:15 Potassium 3.7 mmol/L (3.5-5.1) 05/20/21 11:15 Chloride 99 mmol/L (98-107) 05/20/21 11:15 Carbon Dioxide 30 mmol/L (22-29) H 05/20/21 11:15 Anion Gap 13.7 (5-19) 05/20/21 11:15 BUN 13 mg/dL (8-23) 05/20/21 11:15 Creatinine 1.0 mg/dL (0.7-1.2) 05/20/21 11:15 GFR Calculation Not Reportable 05/20/21 11:15 Glucose 236 mg/dL (65-115) H 05/20/21 11:15 Calculated Osmolality 296 mOsm/kg (285-295) H 05/20/21 11:15 Calcium 9.5 mg/dL (8.5-10.5) 05/20/21 11:15 Total Bilirubin 0.4 mg/dL (0.15-1.2) 05/20/21 11:15 AST 24 U/L (0-40) 05/20/21 11:15 ALT 15 U/L (0-41) 05/20/21 11:15 Alkaline Phosphatase 89 IU/L (40-130) 05/20/21 11:15 Total Protein 6.8 g/dL (6.6-8.7) 05/20/21 11:15 Albumin 4.3 g/dL (3.5-5.2) 05/20/21 11:15 Globulin 2.5 g/dL (1.3-4.6) 05/20/21 11:15 Urine Color Straw (Yellow) 05/20/21 11:10 Urine Appearance Clear (CLEAR) 05/20/21 11:10 Urine pH 7 (5-7) 05/20/21 11:10 Ur Specific [place] 1.015 (1.005-1.030) 05/20/21 11:10 Urine Protein Neg (Negative) 05/20/21 11:10 Urine Glucose (UA) 4+ (Normal) H 05/20/21 11:10 Urine Ketones Negative (Negative) 05/20/21 11:10 Urine Blood Neg (Negative) 05/20/21 11:10 Urine Nitrate Negative (Negative) 05/20/21 11:10 Urine Bilirubin Neg (Negative) 05/20/21 11:10 Urine Urobilinogen Norm mg/dL (Negative) 05/20/21 11:10 Ur Leukocyte Esterase Negative (Negative) 05/20/21 11:10 EKG Data EKG 1: I personally reviewed and interpreted this EKG as follows: EKG interpretation date: 05/20/21 EKG interpretation time: Interpretation: Twelve-lead EKG shows a regular rhythm at a rate of 77. AK interval 141, QRS duration 123, QTc 425. Normal axis. Interpretation: Sinus rhythm. Interventricular conduction delay. Discharge Plan Discharge Patient Disposition: Home Clinical Impression: Headache Condition: Stable Prescriptions: No Action albuterol sulfate [ProAir HFA] 90 mcg/actuation HFA aerosol inhaler 2 puff INHALATION Q6H PRN (Reason: Allergy Symptoms) 0RF tamsulosin 0.4 mg capsule 0.4 mg PO DAILY 0RF potassium chloride 10 mEq capsule, extended release 10 meq PO DAILY 0RF zolpidem 6.25 mg tablet,ext release multiphase 6.25 mg PO BEDTIME 0RF diphenhydramine HCl [Allergy (diphenhydramine)] 25 mg capsule 25 mg PO TID PRN (Reason: Allergic Reaction) 0RF lisinopril-hydrochlorothiazide 20-12.5 mg Tablet 1 tab PO DAILY 0RF oxycodone 15 mg Tablet 15 mg PO TID PRN (Reason: Pain) 0RF meloxicam 15 mg tablet 15 mg PO DAILY 0RF Vitamin D2 10 mcg (400 unit) Tablet 10 mcg PO DAILY 0RF magnesium 250 mg Tablet 250 mg PO DAILY 0RF Lotemax SM 0.38 % drops,gel 1 drp ophthalmic (eye) BID 0RF Rx Instructions: 1 drop affected eye twice a day Discharge Orders: Discharge ED (Routine); Ordered 05/20/21 Ordered By: Gonsalo James Referrals: Celine Andersen FNP [Primary Care Provider] - Discharge Diet: Usual diet Discharge Activity: Resume usual activity Activity Restrictions/Additional Instructions: Thank you for visiting the emergency department. You were seen and evaluated for headache. The exact cause of your symptoms is unclear though likely related to underlying headache disorder. Please follow-up with your primary care provider and neurologist. Please return to the emergency department for recurrent symptoms, any new neurologic deficit, or anything else that you are concerned about and feel needs emergency department evaluation. 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
--- NOTE | 2021-05-20 11:00 | ED_ITS ---
HPI - Headache General: Chief Complaint: Headache Stated Complaint: solitariogaine Time Seen by Provider: 05/20/21 10:49 Source: patient Mode of arrival: EMS Limitations: no limitations History of Present Illness: [id number] male presents emergency room with headache. Previously a similar headache and was concerned that he was having a stroke again evidently reports he had a hemorrhagic stroke he is not had difficulty with speech speech swallowing or vision began relatively suddenly a few hours ago. MD elicited complaint: headache Onset (ago): hour(s) Onset description: suddenly Quality & Timing: throbbing Context: occurred at rest Associated symptoms: Deny chest pain, confusion, cough, diaphoresis, eye pain, eye redness, fever(s), lightheadedness, loss of vision, malaise, nausea, neck stiffness, numbness, paresthesias, photophobia, pre-syncope, rash, seizures, short of breath, sound sensitivity, syncope, vomiting or weakness Treatments prior to arrival: none Review of Systems Const: Denies: fever(s), malaise or diaphoresis ENMT: Denies: throat pain, ear or mastoid pain, nasal discharge or nasal congestion Card: Denies: chest pain, lightheadedness, syncope or pre-syncope Resp: Denies: dyspnea, productive cough or non-productive cough GI: Denies: nausea or vomiting : Denies: flank pain, dysuria, urinary frequency or urinary urgency Skin/Breast: Denies: rash Neuro: Denies: confusion PFSH ED PFSH: Medical History Arthritis ASHD (arteriosclerotic heart disease) BPH (benign prostatic hyperplasia) CHF (congestive heart failure) Chronic kidney disease Chronic migraine History of TIA (transient ischemic attack) HTN (hypertension) Surgical History S/P carpal tunnel release S/P knee replacement S/P shoulder surgery Family History Mother , AT AGE 76 BRAIN ANEURYSM No problems noted. Father , AT AGE 84 PELLET POST INSPECTOR,HEART DISEASE Cancer PROSTATE CAD (coronary artery disease) Social History Smoking and tobacco status: former smoker Alcohol intake: unknown Adopted: No Caregiver/support person: No Lives independently: Yes Marital status: / Current occupational status: retired History of recent travel: No Current gender identity: Male Physical Exam Const: GENERAL APPEARANCE: cooperative and comfortable ORIENTATION/CO NSCIOUSNESS: Yes awake, Yes oriented to person, Yes oriented to place and Yes oriented to time HENMT: COMMON NORMALS: normocephalic and atraumatic HEAD & SCALP: normocephalic and atraumatic Eye: DIRECT OPHTHALMOSCOPY: No photophobia Neck/C-Spine: COMMON NORMALS: no JVD Resp: COMMON NORMALS: normal respiratory effort, No retractions, No use of accessory muscles and clear to auscultation bilaterally AUSCULTATION: clear to auscultation bilaterally Cardio: COMMON NORMALS: no JVD, regular rate, regular rhythm and No murmurs present (Cardio) RATE: regular rate RHYTHM: regular rhythm GI: COMMON NORMALS: Soft to palpation and No hepatosplenomegaly present AUSCULTATION: Yes normoactive bowel sounds PALPATION: Yes Soft to palpation, No Tenderness to palpation present (GI), No Guarding due to palpation present (GI) and Yes No hepatosplenomegaly present Extremity: COMMON NORMALS: normal to inspection, capillary refill normal, no clubbing, cyanosis or edema, no calf tenderness and no pedal edema Neuro: SENSORIUM/ORIENTATION: Yes oriented to person, Yes oriented to place and Yes oriented to time Skin: COMMON NORMALS: no rashes or lesions noted GENERAL SKIN EXAM: no rashes or lesions noted Course Vital Signs: Vital signs: Vital Signs Temperature 97.8 F 05/20/21 11:08 Pulse Rate 86 05/20/21 11:08 Respiratory Rate 18 05/20/21 12:33 Blood Pressure 144/100 05/20/21 11:08 Pulse Oximetry 95 05/20/21 11:08 MDM - Headache Medical Decision Making Scan is negative patient improved wishes to discharge home. Discharge patient home follow-up as needed if has recurrence change symptoms return. Follow-up with primary care doctor to recheck blood pressure within the week. Medical Records I reviewed the patient's medical records. Lab Data I reviewed the patient's lab results. : 05/20/21 11:15 05/20/21 11:[address] 05/20/21 11:02 IMPRESSION: 1. No evidence of intracranial hemorrhage or mass effect. 2. Moderate small vessel changes with moderate parenchymal volume loss. 3. Prior postoperative changes LEFT frontoparietal pterional craniotomy with mild postoperative soft tissue thickening or trace fluid deep to the craniotomy measuring 4.7 mm. 4. No acute intracranial findings. Chest X-Ray 05/20/21 11:05 IMPRESSION: No acute cardiopulmonary abnormality. Laboratory Results WBC 6.0 10^3/uL (4.0-10.0) 05/20/21 11:15 RBC 4.74 10^6/uL (4.1-5.3) 05/20/21 11:15 Hgb 15.7 g/dL (11.7-16.6) 05/20/21 11:15 Hct 46.6 % (42.0-52.0) 05/20/21 11:15 MCV 98.3 fl (80-94) H 05/20/21 11:15 MCH 33.1 pg (28.0-34.0) 05/20/21 11:15 MCHC 33.7 g/dL (30.0-36.0) 05/20/21 11:15 RDW 12.7 % (12.1-15.1) 05/20/21 11:15 Plt Count 125 10^3/cmm (130-400) L 05/20/21 11:15 MPV 11.2 fL (7.4-10.4) H 05/20/21 11:15 Neut % (Auto) 65.5 % 05/20/21 11:15 Lymph % (Auto) 25.0 % 05/20/21 11:15 [place] % (Auto) 6.3 % 05/20/21 11:15 Eos % (Auto) 2.2 % 05/20/21 11:15 Baso % (Auto) 0.5 % 05/20/21 11:15 Neut # (Auto) 3.93 10^3/uL (1.8-7.7) 05/20/21 11:15 Lymph # (Auto) 1.5 10^3/uL (0.8-4.8) 05/20/21 11:15 [place] # (Auto) 0.4 10^3/uL (0.2-0.9) 05/20/21 11:15 Eos # (Auto) 0.1 10^3/uL (0.0-0.8) 05/20/21 11:15 Baso # (Auto) 0.0 10^3/uL (0.0-0.1) 05/20/21 11:15 Nucleated RBC % (auto) 0 % 05/20/21 11:15 Nucleated RBCs # 0.0 /100WBC 05/20/21 11:15 Sodium 139 mmol/L (136-145) 05/20/21 11:15 Potassium 3.7 mmol/L (3.5-5.1) 05/20/21 11:15 Chloride 99 mmol/L (98-107) 05/20/21 11:15 Carbon Dioxide 30 mmol/L (22-29) H 05/20/21 11:15 Anion Gap 13.7 (5-19) 05/20/21 11:15 BUN 13 mg/dL (8-23) 05/20/21 11:15 Creatinine 1.0 mg/dL (0.7-1.2) 05/20/21 11:15 GFR Calculation Not Reportable 05/20/21 11:15 Glucose 236 mg/dL (65-115) H 05/20/21 11:15 Calculated Osmolality 296 mOsm/kg (285-295) H 05/20/21 11:15 Calcium 9.5 mg/dL (8.5-10.5) 05/20/21 11:15 Total Bilirubin 0.4 mg/dL (0.15-1.2) 05/20/21 11:15 AST 24 U/L (0-40) 05/20/21 11:15 ALT 15 U/L (0-41) 05/20/21 11:15 Alkaline Phosphatase 89 IU/L (40-130) 05/20/21 11:15 Total Protein 6.8 g/dL (6.6-8.7) 05/20/21 11:15 Albumin 4.3 g/dL (3.5-5.2) 05/20/21 11:15 Globulin 2.5 g/dL (1.3-4.6) 05/20/21 11:15 Urine Color Straw (Yellow) 05/20/21 11:10 Urine Appearance Clear (CLEAR) 05/20/21 11:10 Urine pH 7 (5-7) 05/20/21 11:10 Ur Specific [place] 1.015 (1.005-1.030) 05/20/21 11:10 Urine Protein Neg (Negative) 05/20/21 11:10 Urine Glucose (UA) 4+ (Normal) H 05/20/21 11:10 Urine Ketones Negative (Negative) 05/20/21 11:10 Urine Blood Neg (Negative) 05/20/21 11:10 Urine Nitrate Negative (Negative) 05/20/21 11:10 Urine Bilirubin Neg (Negative) 05/20/21 11:10 Urine Urobilinogen Norm mg/dL (Negative) 05/20/21 11:10 Ur Leukocyte Esterase Negative (Negative) 05/20/21 11:10 Discharge Plan Discharge Patient Disposition: Home Clinical Impression: Headache Condition: Stable Prescriptions: No Action albuterol sulfate [ProAir HFA] 90 mcg/actuation HFA aerosol inhaler 2 puff INHALATION Q6H PRN (Reason: Allergy Symptoms) 0RF tamsulosin 0.4 mg capsule 0.4 mg PO DAILY 0RF potassium chloride 10 mEq capsule, extended release 10 meq PO DAILY 0RF zolpidem 6.25 mg tablet,ext release multiphase 6.25 mg PO BEDTIME 0RF diphenhydramine HCl [Allergy (diphenhydramine)] 25 mg capsule 25 mg PO TID PRN (Reason: Allergic Reaction) 0RF lisinopril-hydrochlorothiazide 20-12.5 mg Tablet 1 tab PO DAILY 0RF oxycodone 15 mg Tablet 15 mg PO TID PRN (Reason: Pain) 0RF meloxicam 15 mg tablet 15 mg PO DAILY 0RF Vitamin D2 10 mcg (400 unit) Tablet 10 mcg PO DAILY 0RF magnesium 250 mg Tablet 250 mg PO DAILY 0RF Lotemax SM 0.38 % drops,gel 1 drp ophthalmic (eye) BID 0RF Rx Instructions: 1 drop affected eye twice a day Discharge Orders: Discharge ED (Routine); Ordered 05/20/21 Ordered By: Gonsalo James Referrals: Celine Andersen FNP [Primary Care Provider] - Discharge Diet: Usual diet Discharge Activity: Resume usual activity Patient Instructions: Migraine Headache (ED), Acute Headache (ED), Opioid Safety Activity Restrictions/Additional Instructions: Thank you for visiting the emergency department. You were seen and evaluated for headache. The exact cause of your symptoms is unclear though likely related to underlying headache disorder. Please follow-up with your primary care provider and neurologist. Please return to the emergency department for recurrent symptoms, any new neurologic deficit, or anything else that you are concerned about and feel needs emergency department evaluation. 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
--- NOTE | 2021-05-20 11:02 | CT_ITS ---
WS: [id number] CT HEAD TECHNIQUE: Noncontrast CT of the head obtained from the skullbase to the vertex. CLINICAL INFORMATION: hx intraccranial bleed COMPARISON: None. DLP: 1058.[address] scans at [facility] use at least one of these dose optimization techniques: automated e xposure control; mA and/or kV adjustment per patient size (includes targeted exams where dose is matc hed to clinical indication); or iterative reconstruction. FINDINGS: No evidence of intracranial hemorrhage or mass effect. Prior postoperative changes LEFT frontoparieta l and pterional craniotomy. Small amount of soft tissue thickening or trace low-attenuation fluid alyssa p to the craniotomy normal postoperative measuring 4.7 mm in short axis dimension. Ventricular system and basal cisterns are patent. Moderate small vessel changes with moderate parenchymal volume loss. Small area of chronic ischemia in the RIGHT anterior jessica radiata. No evidence of mass or mass effe ct. Mastoid air cells are well aerated. Mild diffuse thickening in the paranasal sinuses. Mild mucosa l thickening RIGHT maxillary sinus. CT/CT head wo con* [id number] IMPRESSION: 1. No evidence of intracranial hemorrhage or mass effect. 2. Moderate small vessel changes with moderate parenchymal volume loss. 3. Prior postoperative changes LEFT frontoparietal pterional craniotomy with m ild postoperative soft tissue thickening or trace fluid deep to the craniotomy measuring 4.7 mm. 4. No acute intracranial findings.
[2021-05-20 11:04] VITALS: BMI 38.7
--- NOTE | 2021-05-20 11:05 | XRR_ITS ---
PROCEDURE INFORMATION: Exam: XR Chest Exam date and time: 05/20/2021 10:11 AM Age: 75 years old Clinical indication: Shortness of breath; Additional info: SOB TECHNIQUE: Imaging protocol: XR of the chest. Views: 1 view. COMPARISON: CR XR chest 1V portable [id number] 03/18/2021 5:39 PM FINDINGS: Lungs: No focal airspace disease. Pleural spaces: Unremarkable. No pleural effusion. No pneumothorax. Heart/Mediastinum: Cardiomediastinal silhouette is within normal limits. Bones/joints: Unremarkable. XR/XR chest 1V portable [id number] IMPRESSION: No acute cardiopulmonary abnormality.
--- NOTE | 2021-05-20 11:06 | ECG_ITS ---
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 Measurements Intervals [place] Rate: 77 P: -74 SC: 141 QRS: 2 QRSD: 123 T: 26 QT: 374 QTc: 425 Interpretive Statements ECTOPIC ATRIAL RHYTHM MODERATE INTRAVENTRICULAR CONDUCTION DELAY [110+ ms QRS DURATION] ABNORMAL RHYTHM ECG Compared to ECG 03/18/2021 19:13:02 Ectopic atrial rhythm now present Junctional rhythm no longer present Ventricular premature complex(es) no longer present Electronically Signed On 05-20-2021 20:19:21 CDT by Nandini Zimmerman M.D. [email or web address] [email or web address] [id number]
[2021-05-20 11:08] VITALS: BP 144/100; PULSE 86; RESP 18; TEMP 36.6; O2SAT 95
[2021-05-20 11:24] LABS: Add Urine Microscopic? NO; Charge for UA Resulting for Rev
[2021-05-20 11:29] LABS: Basophils % 0.5 %; Eosinophils # 0.1 10^3/uL (0.0-0.8); Eosinophils % 2.2 %; Hematocrit 46.6 % (42.0-52.0); Hemoglobin 15.7 g/dL (11.7-16.6); Lymphocytes # 1.5 10^3/uL (0.8-4.8); Mean Corpuscular HGB Conc 33.7 g/dL (30.0-36.0); Mean Corpuscular Hemoglobin 33.1 pg (28.0-34.0); Mean Corpuscular Volume 98.3 fl (80-94); Mean Platelet Volume 11.2 fL (7.4-10.4); Monocytes # 0.4 10^3/uL (0.2-0.9); Monocytes % 6.3 %; Neutrophils # 3.93 10^3/uL (1.8-7.7); Neutrophils % 65.5 %; Nucleated Red Blood Cells % 0 %; Platelet Count 125 10^3/cmm (130-400); Red Blood Count 4.74 10^6/uL (4.1-5.3); Red Cell Distribution Width 12.7 % (12.1-15.1)
[2021-05-20 11:31] LABS: Bilirubin Urine Neg (Negative); Blood Urine Neg (Negative); Glucose Urine UA 4+ (Normal); Ketones Urine Negative (Negative); Leukocyte Esterase Urine Negative (Negative); Nitrate Urine Negative (Negative); Protein Urine Neg (Negative); Specific Gravity, Urine 1.015 (1.005-1.030); Urine Appearance Clear (CLEAR); Urine Color Straw (Yellow); Urobilinogen Urine Norm (Negative); pH Urine 7 (5-7)
[2021-05-20] MEDS: lactated ringers 1,000 ML 999 ML IV (11:43)
[2021-05-20] MEDS: metoclopramide 5 mg/mL SDV 2 mL 10 MG IVP (11:44)
[2021-05-20] MEDS: acetaminophen 1,000 MG/100 ML PIGGYBACK 400 MG IV (11:44)
[2021-05-20] MEDS: diphenhydrAMINE 50 mg/mL SDV 1mL 25 MG IVP (11:44)
[2021-05-20 11:55] LABS: Alanine Aminotransferase 15 U/L (0-41); Albumin Level 4.3 g/dL (3.5-5.2); Alkaline Phosphatase 89 IU/L (40-130); Anion Gap 13.7 (5-19); Aspartate Amino Transferase 24 U/L (0-40); Blood Urea Nitrogen 13 mg/dL (8-23); Calcium 9.5 mg/dL (8.5-10.5); Carbon Dioxide 30 mmol/L (22-29); Chloride 99 mmol/L (98-107); Globulin 2.5 g/dL (1.3-4.6); Glucose 236 mg/dL (65-115); Osmolality Calculated 296 mOsm/kg (285-295); Potassium 3.7 mmol/L (3.5-5.1); Sodium 139 mmol/L (136-145); Total Bilirubin 0.4 mg/dL (0.15-1.2); Total Protein 6.8 g/dL (6.6-8.7)
[2021-05-20 12:33] VITALS: RESP 18
[2021-05-20] MEDS: magnesium sulfate premix 2 GM/50 ML PIGGYBACK IV (12:33)
[2021-05-20] MEDS: morphine 4 mg/mL SDV 1 mL IVP (12:33)
[2021-05-20] MEDS: valproic acid inj 500 MG in sodium chloride 0.9% 50 ML 55 MG IV (12:44)
[2021-05-20] MEDS: dexamethasone 10 mg/mL INJ IVP (14:00)
== END 2021-05-20 14:13 | disposition home or self-care (01) ==
PROVIDERS: Emergency Provider Emergency Medicine; PCP Nurse Practitioner Family
DX: R51.9 Headache, unspecified (principal); I11.0 Hypertensive heart disease with heart failure; I50.9 Heart failure, unspecified; Z86.73 Personal history of transient ischemic attack (TIA), and cerebral infarction without residual deficits; Z87.891 Personal history of nicotine dependence
CPT/HCPCS: 70450; 71045; 80053; 81003; 85025; 93005; 96365; 96367; 96375; 99284; J1100; J1200; J2270; J2765; J3475

== ENCOUNTER → 2021-06-21 09:34 | Outpatient (BNVA) | payer MEDICARE, SELFPAY | PROVIDERS: PCP Nurse Practitioner Family; Visit Provider Internal Medicine Cardiovascular Disease | DX: I13.0 Hypertensive heart and chronic kidney disease with heart failure and stage 1 through stage 4 chronic kidney disease, or unspecified chronic kidney disease (principal); N18.9 Chronic kidney disease, unspecified; I50.32 Chronic diastolic (congestive) heart failure; I48.91 Unspecified atrial fibrillation; I25.10 Atherosclerotic heart disease of native coronary artery without angina pectoris; R00.1 Bradycardia, unspecified; Z86.73 Personal history of transient ischemic attack (TIA), and cerebral infarction without residual deficits; Z87.891 Personal history of nicotine dependence | CPT/HCPCS: 99214 ==

== ENCOUNTER 2021-07-12 08:46 | Outpatient (CLI) | payer MEDICARE, SELFPAY ==
[2021-07-12 09:07] VITALS: BMI 40.1
--- NOTE | 2021-07-12 09:08 | ECG_ITS ---
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 Interpretive Statements NAME OF STUDY: LEXISCAN SESTAMIBI STRESS TEST INDICATION: Chest Pain; Shortness of Breath PROCEDURE: At the baseline, the blood pressure was 131/85 mmHg with a heart rate of 65 bpm. The electrocardiogram showed sinus bradycardia, normal axis. Intraventricular conduction delay. The Lexiscan was infused over a period of 20 seconds. A total of 0.4 milligrams of Lexiscan was infused. The stress phase was continued for a total of 5 minutes. Heart rate at the end of the stress phase was 68 bpm with a blood pressure of 152/88 mmHg. The EKG at the peak infusion revealed sinus rhythm with no significant ST-T wave changes. The study was terminated due to protocol completion. Sestamibi was injected 20 seconds after the Lexiscan infusion. Blood pressure at the end of the recovery phase was 148/93 mmHg with a heart rate of 70 beats per minute. CONCLUSION: 1. No significant EKG changes with the LexiScan infusion. 2. No LexiScan induced chest pain or cardiac arrhythmia. 3. Normal blood pressure and heart rate response. 4. Sestamibi/sestamibi perfusion scan pending; see separate report. Electronically Signed On 07-15-2021 17:49:05 CDT by Bonita Montoya M.D. [id number]
--- NOTE | 2021-07-12 09:09 | NMCV_ITS ---
NM radha perf SPECT r/s* [id number] Dajuan Presley Age: 75 Gender: M : 1945 Exam Date: 07/12/2021 10:18 Ordering Phys: Bonita Montoya MD ([email or web address]) Technologist: NANCI Mccullough Exam Location: [facility] Indications: CHEST PAIN STRESS TEST [facility] IMAGE PROTOCOL Rest/Stress 1 Lexiscan Day Radiopharmaceutical Dose (mCi) Administration Site Administered by Rest: Tc-99m 10.7 IV NANCI Givens Sestamibi Stress:Tc-99m 32.8 IV NANCI Givens Sestamibi Rest: 12-Jul-2021 60 Discovery 630 Stress: 12-Jul-2021 30 Discovery 630 0.4mg Lexiscan. Supine position only as patient was unable to lay prone. SPECT RESULTS Technical Quality: Excellent Raw Data Analysis: Normal Image Corrections: No attenuation or motion correction applied Summed Stress Score: 3 Summed Rest Score: 7 Summed Difference Score: 1 PERFUSION FINDINGS Small size perfusion abnormality of mild severity of mid to apical inferior, mid to apical inferolateral and apical septal wall on rest images with improved tracer uptake in inferolateral wall on stress images. FUNCTIONAL RESULTS (calculated via Gated SPECT) Stress Image LV EF (%): 59 Stress EDV (mL):117 TID: 1.13 Stress ESV (mL):48 FUNCTIONAL FINDINGS: The left ventricle is normal in size. Transient Ischemia Dilatation of 1.1. There is normal left ventricular systolic function. The left ventricular ejection fraction is normal with a value of 59%. There is normal left ventricular wall thickening with no regional wall motion abnormality. Normal end-diastolic and end-systolic volumes. IMPRESSIONS 1. Myocardial perfusion imaging is normal. Attenuation artifact noted in inferior inferolateral flowers. 2. Overall left ventricular systolic function is normal without regional wall motion abnormalities. 3. The left ventricular ejection fraction is normal with a value of 59%. 4. No EKG changes with Lexiscan infusion. Refer to separate report for details. 5. Scan indicates low risk for cardiac events. Bonita Montoya MD (Electronically Signed) Final Date: 17 Jul 2021 16:50 S
[2021-07-12] MEDS: regadenoson 0.4 Mg/5 ml Syringe IVP (10:48)
[2021-07-12] MEDS: ondansetron 2 mg/ML SDV 2 mL 4 MG IVP (10:56)
[2021-07-12 11:07] VITALS: BP 159/98; PULSE 71
== END 2021-07-12 08:47 | disposition home or self-care (01) ==
LOC: CDL 08:48
PROVIDERS: PCP Nurse Practitioner Family; Visit Provider Internal Medicine Cardiovascular Disease
DX: R07.9 Chest pain, unspecified (principal)
CPT/HCPCS: 78452; 93017; A9500; J2405; J2785

== ENCOUNTER 2021-07-22 11:08 | Emergency (ER) | payer MEDICARE, SELFPAY ==
--- NOTE | 2021-07-22 11:17 | CT_ITS ---
WS: [id number] CT HEAD NONCONTRAST HISTORY: headache TECHNIQUE: Contiguous axial imaging performed through the brain in 2.5 mm imaging. Bone and soft tiss ue windows. Sagittal and coronal reformats reviewed. All CT scans at [facility] use at least one of these dose optimization techniques: automated exposure control; mA and/or kV adjustment per pa tient size (includes targeted exams where dose is matched to clinical indication); or iterative recon struction. DLP: 998.61 mGy.cm COMPARISON: 05/20/2021 Significant artifact through the brain due to motion and calvarial hardware. No acute hemorrhage is identified. No midline shift. Mild atrophy and small vessel ischemic disease. Ventricles: Normal size with no hydrocephalus. Paranasal sinuses: As visualized are clear. Mastoid air cells: Well pneumatized. Calvarium and scalp: Large RIGHT frontoparietal craniotomy. Postoperative changes along the dura are stable. No new blood products or mass effect. CT/CT head wo con* [id number] IMPRESSION: 1. Stable noncontrast head CT since 05/20/2021. 2. Atrophy and volume loss and postsurgical LEFT frontoparietal craniotomy.
[2021-07-22 11:25] VITALS: BP 180/111; PULSE 96; RESP 18; TEMP 36.7; O2SAT 94; BMI 35.9
--- NOTE | 2021-07-22 11:26 | ECG_ITS ---
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 Measurements Intervals [place] Rate: 84 P: -77 DE: 119 QRS: -15 QRSD: 128 T: 23 QT: 379 QTc: 450 Interpretive Statements SINUS RHYTHM WITH OCCASIONAL SUPRAVENTRICULAR PREMATURE COMPLEXES MODERATE INTRAVENTRICULAR CONDUCTION DELAY [110+ ms QRS DURATION] MINIMAL ST DEPRESSION [0.025+ mV ST DEPRESSION] Compared to ECG 05/20/2021 11:18:56 ST (T wave) deviation now present Ectopic atrial rhythm no longer present Electronically Signed On 07-22-2021 17:25:37 CDT by Derian Garcia M.D. [email or web address]/[id number]
--- NOTE | 2021-07-22 11:30 | ED_ITS ---
HPI - General Adult General: Chief complaint: Headache Stated complaint: SEVERE MIGRAINE Time Seen by Provider: 07/22/21 11:09 History of Present Illness: Patient is a 75-year-old male with a history of subdural hematoma s/p frontoparietal craniotomy, severe migraines presenting to the emergency room with new constant onset of migraine since 915 this morning. Patient tells me she he was at home sitting down when this migraine swelling started and has been on relieving since. Patient reports that he has had worse migraine to this. Patient reports photophobia and mild bilateral neck stiffness. The headache is concentrated to the frontal area and is pulsating without any relief. Patient has not taken any medication. Patient has no associated nausea/vomiting, fever/chills, neurological deficits, paresthesia, or other complaints. Patient tells me about a year ago he underwent a brain surgery but cannot recall what surgery was. Patient reports mild chest pain for the last 30 minutes. Patient denies any exertional chest, pleuritic chest pain, shortness of breath, palpitation, nausea/vomiting, diarrhea melena/hematochezia, urinary complaints. Cat Onset: 915am Duration:ongoing Location:home Severity:moderate Associated symptoms: Reports chest pain; Deny dyspnea, nausea, rash, palpitations or vomiting Review of Systems Const: Denies: fever(s) or chills Eyes: Reports: photophobia; Denies: change in vision ENMT: Denies: mouth pain Card: Reports: chest pain; Denies: palpitations Resp: Denies: dyspnea or non-productive cough GI: Denies: abdominal pain, nausea, vomiting or diarrhea : Denies: dysuria Musc: Denies: extremity pain Skin/Breast: Denies: rash or new lesions Neuro: Reports: other (+headache, photopobia); Denies: weakness in extremities Psych: Reports: other (Normal mood) Matti/Lymph: Denies: easy bruising PFSH ED PFSH: Medical History (Updated 07/22/21 @ 14:41 by Lupillo Delcid MD) Arthritis ASHD (arteriosclerotic heart disease) BPH (benign prostatic hyperplasia) BPH (benign prostatic hyperplasia) CHF (congestive heart failure) Chronic kidney disease Chronic migraine History of TIA (transient ischemic attack) HTN (hypertension) Lower urinary tract symptoms (LUTS) Subdural hematoma Surgical History (Updated 07/22/21 @ 14:41 by Lupillo Delcid MD) H/O craniotomy Previous back surgery S/P carpal tunnel release S/P knee replacement S/P shoulder surgery Family History Mother , AT AGE 76 BRAIN ANEURYSM No problems noted. Father , AT AGE 84 RESPIRATORY TECHNICIAN,HEART DISEASE Cancer PROSTATE CAD (coronary artery disease) Social History Smoking and tobacco status: former smoker Alcohol intake: unknown Adopted: No Caregiver/support person: No Lives independently: Yes Marital status: / Current occupational status: retired History of recent travel: No Current gender identity: Male Physical Exam Const: COMMON NORMALS: alert HENMT: COMMON NORMALS: atraumatic HEAD & SCALP: atraumatic MOUTH: moist mucous membranes not abnormal Eye: COMMON NORMALS: EOMs intact bilaterally and conjunctivae normal CO NJUNCTIVA: Yes conjunctivae normal Neck/C-Spine: COMMON NORMALS: full ROM and supple Resp: COMMON NORMALS: normal respiratory effort and clear to auscultation bilaterally AUSCULTATION: clear to auscultation bilaterally Cardio: COMMON NORMALS: regular rate RATE: regular rate GI: COMMON NORMALS: Soft to palpation and non-tender PALPATION: Yes Soft to palpation Extremity: COMMON NORMALS: full ROM Neuro: SENSORIUM/ORIENTATION: Yes alert MOTOR EXAM: No Abnormal motor strength present and Other motor observations present (no focal motor deficits) OTHER: Mental status? Awake, alert, and oriented to self, year, month, location, and situation.? Following simple axial and appendicular commands.? Has appropriate fund of knowledge, comprehension, and insight.? Able to recall and understands pertinent aspects of medical history and current treatment status.? ? Language? Speech is fluent without word-finding difficulties.? 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 ? Cranial nerves? 2,3,4,6: PERRL, EOMI with no nystagmus. 5: Intact sensation to light touch, symmetric? 7: Smile symmetrical, no facial droop.? 8: Hearing grossly intact.? 9,10: Normal palate movement.? 11: Normal strength in trapezius bilaterally 12: Tongue protrudes midline.? ? Motor examination? Normal bulk & tone. Strength as follows (R/L): Delts (5/5), Biceps (5/5), Triceps (5/5), Wrist ext (5/5), hip flexors (5/5), plantarflexors (5/5), dorsiflexors (5/5). ? Sensation? Light Touch: Grossly intact and equal in upper and lower extremities bilaterally? Romberg: Negative.? Distal joint position sense intact ? Coordination? Svkato-md-ofqw-finger movements intact without dysmetria or past-pointing.? Rapid fingertaps: preserved amplitude without decriment.? No tremor, myoclonus or truncal ataxia.? ? Gait/stance? Steady, normal narrow base gait with appropriate arm swing and turning.? Tandem gait without hesitation or loss of balance. Psych: COMMON NORMALS: speech normal SPEECH: Yes normal speech MOOD & AFFECT: Yes euthymic mood Course Vital Signs: Vital signs: Vital Signs Temperature 98.0 F 07/22/21 11:25 Pulse Rate 64 07/22/21 16:58 Respiratory Rate 16 07/22/21 11:33 Blood Pressure 132/79 07/22/21 16:58 Pulse Oximetry 95 07/22/21 16:58 [facility] - General Adult Medical Decision Making 75-year-old male with a history of severe migraines, hypertension, TIA, CKD, CHF, prior subdural hematoma s/p craniotomy presenting to the emergency for new onset of headache since 915 this morning. On physical exam, patient is hemodynamically stable. Neuro exam is intact. CT head negative for any acute finding. He received a headache cocktail including magnesium sulfate, Tylenol, Reglan with significant improvement in symptoms. Given the fact that headache occurred within 6 hours (not the worst headache in his life), I do not suspect that this is subarachnoid hemorrhage in light of negative CT scan, normal neuro exam, and improving headache after medication. Patient is now able to tolerate p.o. without difficulty. I have given patient follow up with our field nurse case manager to be seen by Dr. Key for recurrent severe headache. Patient aware of a call from our field nurse case manager to schedule for appointment(s) and verbalizes understanding of the importance of following up. Rx: Magnesium oxide, Tylenol, Reglan as needed for headache Disposition: Discharge. Patient counseled regarding diagnostic impression, treatment plan. Patient given ED strict return precautions to return for continuation, worsening, or development of new symptoms. Instructed to f/u w/ PCP regarding symptoms today. Patient verbalized understanding. Lab Data : 07/22/21 13:34 07/22/21 13:[address] 07/22/21 11:17 IMPRESSION: 1. Stable noncontrast head CT since 05/20/2021. 2. Atrophy and volume loss and postsurgical LEFT frontoparietal craniotomy. Head/Neck CTA 07/22/21 14:48 IMPRESSION: 1. No significant extra cervical carotid artery stenosis. Cervical 2. Scattered plaque within the intracranial carotid arteries and tortuosity. No occlusion or high-grade stenosis or aneurysm. Laboratory Results WBC 7.4 10^3/uL (4.0-10.0) 07/22/21 13:34 RBC 4.49 10^6/uL (4.1-5.3) 07/22/21 13:34 Hgb 15.0 g/dL (11.7-16.6) 07/22/21 13:34 Hct 47.0 % (42.0-52.0) 07/22/21 13:34 MCV 104.7 fl (80-94) H 07/22/21 13:34 MCH 33.4 pg (28.0-34.0) 07/22/21 13:34 MCHC 31.9 g/dL (30.0-36.0) 07/22/21 13:34 RDW 12.0 % (12.1-15.1) L 07/22/21 13:34 Plt Count 116 10^3/cmm (130-400) L 07/22/21 13:34 MPV 11.3 fL (7.4-10.4) H 07/22/21 13:34 Neut % (Auto) 59.8 % 07/22/21 13:34 Lymph % (Auto) 26.0 % 07/22/21 13:34 [place] % (Auto) 10.8 % 07/22/21 13:34 Eos % (Auto) 2.8 % 07/22/21 13:34 Baso % (Auto) 0.5 % 07/22/21 13:34 Neut # (Auto) 4.42 10^3/uL (1.8-7.7) 07/22/21 13:34 Lymph # (Auto) 1.9 10^3/uL (0.8-4.8) 07/22/21 13:34 [place] # (Auto) 0.8 10^3/uL (0.2-0.9) 07/22/21 13:34 Eos # (Auto) 0.2 10^3/uL (0.0-0.8) 07/22/21 13:34 Baso # (Auto) 0.0 10^3/uL (0.0-0.1) 07/22/21 13:34 Nucleated RBC % (auto) 0 % 07/22/21 13:34 Nucleated RBCs # 0.0 /100WBC 07/22/21 13:34 Sodium 138 mmol/L (136-145) 07/22/21 13:34 Potassium 4.0 mmol/L (3.5-5.1) 07/22/21 13:34 Chloride 100 mmol/L (98-107) 07/22/21 13:34 Carbon Dioxide 29 mmol/L (22-29) 07/22/21 13:34 Anion Gap 13.0 (5-19) 07/22/21 13:34 BUN 13 mg/dL (8-23) 07/22/21 13:34 Creatinine 1.0 mg/dL (0.7-1.2) 07/22/21 13:34 GFR Calculation Not Reportable 07/22/21 13:34 Glucose 165 mg/dL (65-115) H 07/22/21 13:34 Calculated Osmolality 290 mOsm/kg (285-295) 07/22/21 13:34 Calcium 8.4 mg/dL (8.5-10.5) L 07/22/21 13:34 Troponin T Baseline 29 ng/L (0-15) H 07/22/21 13:34 Troponin T 120 Minute 30.56 ng/L (0-15) H 07/22/21 15:50 Delta Troponin T 1.56 ABS# (0-10) 07/22/21 15:50 Imaging Data Other Imaging: Radiologist's impression: [address] [place] [address] CT Scan Report Signed Patient: SakinaDajuan Unit #: [id number] : 1945 Age/Sex: 75 / M ADM Date: 07/22/21 Loc: ER Room/Bed: Attending Dr: Ordering Provider/Ordering MD: Lupillo Delcid MD Date of Service: 07/22/21 Procedure(s): CT head wo con* [id number] Accession Number(s): [id number] Report Number: [id number] WS: [id number] CT HEAD NONCONTRAST HISTORY: headache TECHNIQUE: Contiguous axial imaging performed through the brain in 2.5 mm imag ing. Bone and soft tissue windows. Sagittal and coronal reformats reviewed.? [facility] CT scans at [facility] use at least one of these dose optimization techniques: automated exposure control; mA and/or kV adjustment per patient size (includes targeted exams where dose is matched to clinical indication); or iterative reconstruction. DLP: 998.61 mGy.cm COMPARISON: 05/20/2021 Significant artifact through the brain due to motion and calvarial hardware. No acute hemorrhage is identified. No midline shift. Mild atrophy and small vessel ischemic disease. Ventricles:? Normal size with no hydrocephalus. Paranasal sinuses: As visualized are clear. Mastoid air cells: Well pneumatized. Calvarium and scalp: Large RIGHT frontoparietal craniotomy. Postoperative changes along the dura are stable. No new blood products or mass effect. CT/CT head wo con* [id number] IMPRESSION: ? 1.? Stable noncontrast head CT since 05/20/2021. 2.? Atrophy and volume loss and postsurgical LEFT frontoparietal craniotomy. ? Dictated By: Dee Lyle DO Signed By: Dee Lyle DO Signed Date/Time: 07/22/21 1224 DD/ 1220 Discharge Plan Discharge Patient Disposition: Home Clinical Impression: Headache, Photophobia Condition: Stable Prescriptions: New acetaminophen 500 mg tablet 500 mg PO Q6H PRN (Reason: pain) 5 Days Qty: 20 0RF Reglan 5 mg tablet 5 mg PO BID PRN (Reason: nausea and vomiting) 5 Days Qty: 10 0RF magnesium oxide 400 mg magnesium capsule 400 mg PO DAILY PRN (Reason: headache) 10 Days Qty: 10 0RF No Action albuterol sulfate [ProAir HFA] 90 mcg/actuation HFA aerosol inhaler 2 puff INHALATION Q6H PRN (Reason: Allergy Symptoms) 0RF tamsulosin 0.4 mg capsule 0.4 mg PO DAILY 0RF potassium chloride 10 mEq capsule, extended release 10 meq PO BID 0RF zolpidem 6.25 mg tablet,ext release multiphase 6.25 mg PO BEDTIME 0RF lisinopril-hydrochlorothiazide 20-12.5 mg Tablet 1 tab PO DAILY 0RF oxycodone 15 mg Tablet 15 mg PO TID PRN (Reason: Pain) 0RF ergocalciferol (vitamin D2) [Vitamin D2] 10 mcg (400 unit) Tablet 10 mcg PO DAILY 0RF magnesium 250 mg Tablet 250 mg PO DAILY 0RF hqfzglddzc-monwrsowdwpyr-wisv 50-325-40 mg Tablet 1 tab PO Q4H PRN (Reason: Headache) 0RF Discharge Orders: Discharge ED (Routine); Ordered 07/22/21 Ordered By: Lupillo Delcid Referrals: Celine Andersen FNP [Primary Care Provider] - Discharge Diet: Advance as tolerated Discharge Activity: Increase activity as tolerated Patient Instructions: Acute Headache (ED) Activity Restrictions/Additional Instructions: Please come back to the emergency room you have any fever chills, worsening headache, focal weakness, nausea/vomiting, inability to perform daily activity, or any new concerning complaints. 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
[2021-07-22 11:33] VITALS: BP 180/111; PULSE 75; RESP 16; O2SAT 94
[2021-07-22] MEDS: metoclopramide 5 mg/mL SDV 2 mL 10 MG IVP (11:45)
[2021-07-22] MEDS: diphenhydrAMINE 50 mg/mL SDV 1mL IVP (11:45)
[2021-07-22] MEDS: sodium chloride 0.9% 1,000 ML 999 ML IV (11:46)
[2021-07-22] MEDS: magnesium sulfate premix 2 GM/50 ML PIGGYBACK IV (11:46)
[2021-07-22] MEDS: acetaminophen 500 mg Tablet PO (11:46)
[2021-07-22 12:30] VITALS: PULSE 78; O2SAT 94
[2021-07-22 13:00] VITALS: BP 128/82; PULSE 62; O2SAT 93
[2021-07-22] MEDS: morphine 4 mg/mL SDV 1 mL IVP (13:19)
--- NOTE | 2021-07-22 13:26 | ECG_ITS ---
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 Measurements Intervals [place] Rate: 64 P: 253 VT: 105 QRS: -17 QRSD: 130 T: -2 QT: 431 QTc: 447 Interpretive Statements SINUS RHYTHM MODERATE INTRAVENTRICULAR CONDUCTION DELAY [110+ ms QRS DURATION] Compared to ECG 07/22/2021 11:31:36 ST (T wave) deviation no longer present Electronically Signed On 07-22-2021 17:27:45 CDT by Derian Garcia M.D. [id number]
[2021-07-22 13:30] VITALS: BP 151/86; PULSE 64; O2SAT 93
[2021-07-22 13:50] LABS: Basophils % 0.5 %; Eosinophils # 0.2 10^3/uL (0.0-0.8); Eosinophils % 2.8 %; Lymphocytes # 1.9 10^3/uL (0.8-4.8); Mean Corpuscular HGB Conc 31.9 g/dL (30.0-36.0); Mean Corpuscular Hemoglobin 33.4 pg (28.0-34.0); Mean Corpuscular Volume 104.7 fl (80-94); Mean Platelet Volume 11.3 fL (7.4-10.4); Monocytes # 0.8 10^3/uL (0.2-0.9); Monocytes % 10.8 %; Neutrophils # 4.42 10^3/uL (1.8-7.7); Neutrophils % 59.8 %; Nucleated Red Blood Cells % 0 %; Platelet Count 116 10^3/cmm (130-400); Red Blood Count 4.49 10^6/uL (4.1-5.3); White Blood Count 7.4 10^3/uL (4.0-10.0)
[2021-07-22 13:59] LABS: Troponin(5th) Baseline 29 ng/L (0-15)
[2021-07-22 14:02] LABS: Blood Urea Nitrogen 13 mg/dL (8-23); Calcium 8.4 mg/dL (8.5-10.5); Carbon Dioxide 29 mmol/L (22-29); Chloride 100 mmol/L (98-107); Glucose 165 mg/dL (65-115); Osmolality Calculated 290 mOsm/kg (285-295); Sodium 138 mmol/L (136-145)
--- NOTE | 2021-07-22 14:48 | CT_ITS ---
WS: [id number] CT ANGIOGRAM CEREBRAL AND CAROTID ARTERIES HISTORY: hx of aneurysm and prior brain bleed TECHNIQUE: CT angiogram is performed of the carotid and cerebral arteries. During arterial injection imaging is obtained from the skull vertex to the aortic arch in 1.25 mm imaging. Coronal and sagittal reformats are submitted. Additional multi planar reformats of the carotid and cerebral arteries are submitted, MIP imaging also reviewed. NASCET criteria utilized. [facility] CT [facility] at least one of these dose optimization techniques: automated exposure control; mA and/or kV adjust ment per patient size (includes targeted exams where dose is matched to clinical indication); or iter ative reconstruction. CONTRAST: Omnipaque 300; 95 mL IV. DLP: 2567.83 mGy.cm COMPARISON: Noncontrast head CT 07/22/2021 Carotid Angiogram: Right carotid: Common carotid artery: Arises normally from the innominate artery. No significant plaque or stenosis. Internal carotid artery: No plaque or stenosis. External carotid artery: Patent. Left carotid: Common carotid artery: Arises normally from the aorta. No significant plaque or stenosis. Internal carotid artery: No plaque or stenosis. External carotid artery: Patent. Right vertebral artery: Unremarkable. Left vertebral artery: Unremarkable. Arises normally from the subclavian artery. Subclavian arteries: No stenosis or significant abnormality. Upper thorax: Normal. Thyroid gland: Normal. Osseous structures: Advanced degenerative disc disease in the cervical spine. CEREBRAL ANGIOGRAM: Intracranial vertebral arteries: Normal with no significant atherosclerosis. Basilar artery: No significant stenosis or occlusion. No aneurysm. Intracranial Internal carotid arteries: Mild atherosclerotic plaque. No aneurysms are identified. Art eries are tortuous and overlapping. Middle cerebral arteries: Normal. Anterior cerebral arteries and ACOM: Normal. Posterior cerebral arteries and PCOM's: Normal. Dural venous sinuses are normally enhancing. Mastoid air cells: Normal. Paranasal sinuses: Normal. Calvarium: Prior large LEFT craniotomy. CT/CT angio headneck* [id number] IMPRESSION: 1. No significant extra cervical carotid artery stenosis. Cervical 2. Scattered plaque within the intracranial carotid arteries and tortuosity. N o occlusion or high-grade stenosis or aneurysm.
[2021-07-22] MEDS: iohexol 300 mg/mL 100 mL Btl IV (15:04)
[2021-07-22] MEDS: acetaminophen-codeine 300-30mg Tablet 1 TAB PO (15:50)
[2021-07-22 16:40] LABS: Troponin 5 2HR 30.56 ng/L (0-15)
[2021-07-22 16:44] LABS: Troponin 5 2HR Delta 1.56 ABS# (0-10)
[2021-07-22 16:58] VITALS: BP 132/79; PULSE 64; O2SAT 95
--- NOTE | 2021-07-25 08:09 | DCPLANNER ---
Addendum entered by Mily Harrison 08/09/21 11:09: senior project manager engineering was contacted by the neurology clinic stating that Patient's Daughter Vira Manzanares called stating that the patient will not see . Vira also stated that the patient has a Neurologist appointment in [place] on 08/28/21. Addendum entered by Mily Harrison 08/09/21 05:46: senior project manager engineering was told that clinic has attempted to contact patient to schedule an appointment. Clinic has not been able to reach patient and he does not have a voicemail set up. Original Note: senior project manager engineering had message to schedule a follow up appointment for patient with neurology. senior project manager engineering sent patients information to the front office staff at neurology. Patients information will be printed and reviewed. Clinic will call patient with appointment information.
== END 2021-07-22 16:12 | disposition home or self-care (01) ==
PROVIDERS: Emergency Provider Emergency Medicine; PCP Nurse Practitioner Family
DX: R51.9 Headache, unspecified (principal); H53.149 Visual discomfort, unspecified; I13.0 Hypertensive heart and chronic kidney disease with heart failure and stage 1 through stage 4 chronic kidney disease, or unspecified chronic kidney disease; N18.9 Chronic kidney disease, unspecified; I50.9 Heart failure, unspecified; Z86.73 Personal history of transient ischemic attack (TIA), and cerebral infarction without residual deficits
CPT/HCPCS: 70450; 70496; 70498; 80048; 84484; 85025; 93005; 96365; 96375; 99285; J1200; J2270; J2765; J3475; J7030; Q9967

== ENCOUNTER → 2021-09-17 07:42 | Outpatient (BNVA) | payer MEDICARE, SELFPAY | PROVIDERS: PCP Nurse Practitioner Family; Referring Provider Family Medicine; Visit Provider Orthopaedic Surgery | DX: M25.552 Pain in left hip (principal) | CPT/HCPCS: 73502; 99203 ==

== ENCOUNTER → 2021-10-02 09:32 | Outpatient (BNVA) | payer MEDICARE, SELFPAY | PROVIDERS: PCP Nurse Practitioner Family; Referring Provider Family Medicine; Visit Provider Orthopaedic Surgery | DX: M25.512 Pain in left shoulder (principal); M19.012 Primary osteoarthritis, left shoulder; M75.102 Unspecified rotator cuff tear or rupture of left shoulder, not specified as traumatic; M75.101 Unspecified rotator cuff tear or rupture of right shoulder, not specified as traumatic; M25.511 Pain in right shoulder | CPT/HCPCS: 73030; 99204 ==

== ENCOUNTER → 2021-11-06 13:12 | Outpatient (BNVA) | payer MEDICARE, SELFPAY | PROVIDERS: PCP Family Medicine; Visit Provider Internal Medicine Cardiovascular Disease | DX: I13.0 Hypertensive heart and chronic kidney disease with heart failure and stage 1 through stage 4 chronic kidney disease, or unspecified chronic kidney disease (principal); N18.9 Chronic kidney disease, unspecified; I50.32 Chronic diastolic (congestive) heart failure; Z87.891 Personal history of nicotine dependence; I48.91 Unspecified atrial fibrillation; I25.10 Atherosclerotic heart disease of native coronary artery without angina pectoris | CPT/HCPCS: 99214 ==

== ENCOUNTER 2021-11-08 13:15 | Outpatient (CLI) | payer MEDICARE, SELFPAY ==
--- NOTE | 2021-11-08 14:00 | CT_ITS ---
WS: [id number] CT LEFT SHOULDER, NONCONTRAST. HISTORY: Preop for surgery. Technique: All CT scans at [facility] use at least one of these dose optimization techniques: automated exposure control; mA and/or kV adjustment per patient size (includes targeted exams where dose is matched to clinical indication); or iterative reconstruction. DLP: 903.12 mGy.cm COMPARISON: Shoulder radiograph 10/02/2021. Only axial images are performed and submitted to the shoulder as requested by orthopedics. Moderate AC joint arthritis. Joint space narrowing with hypertrophic osteophytes. High riding humeral head with mild anterior subluxation. Small osseous fragments adjacent to the coracoid. Mild narrowin g of the coracoclavicular joint space. No acute fractures. No destructive bone lesions. Visualized LEFT upper lobe is clear. CT/CT shoulder LT wo con* [id number] IMPRESSION: 1. AC joint and coracoclavicular joint narrowing with small osseous fragments. 2. Mild anterior subluxation humeral head.
== END 2021-11-08 13:16 | disposition home or self-care (01) ==
LOC: RAD 13:15
PROVIDERS: PCP Family Medicine; Visit Provider Orthopaedic Surgery
DX: Z01.818 Encounter for other preprocedural examination; M19.012 Primary osteoarthritis, left shoulder; S43.082A Other subluxation of left shoulder joint, initial encounter; X58.XXXA Exposure to other specified factors, initial encounter
CPT/HCPCS: 73200

== ENCOUNTER 2021-11-11 13:42 | Observation (INO) | payer MEDICARE, SELFPAY ==
[2021-10-28 09:28] VITALS: BMI 41.8
--- NOTE | 2021-10-28 10:40 | P.ANESASSM_ITS ---
Pre-Anesthetic Assessment Height/Weight: Height 1.78 m Weight 132.449 kg Preop Diagnosis: afib Operation Date: 11/11/21 10:25 Proposed Procedures p Left total shoulder arthroplasty: 16505?,M75.102,M12.812(Left) - Richie White MD Familial anesthetic complications: NOne Social No alcohol and No tobacco Exam alert, oriented x 3, clear to auscultation bilaterally and regular rate & rhythm Airway Mallampati: Class III Dentition: chipped and other (missing) Comments: Comments: fullb eard Pulmonary Chronic Obstructive Pulmonary Disease, Exertional Dyspnea and Sleep Apnea CV/HEM Atrial Fibrillation, Arrythmia, Congestive Heart Failure and Hypertension None reported Hepatic None reported GI None reported Metabolic Morbid Obesity [facility] None reported Neuropsych Cerebrovascular Accident (hemorrhagic a year ago, no residual deficits) Anesthetic Plan ASA status: 3 Anesthesia: General and Regional (specify below) Risk of > 500 ml blood loss (7ml/kg in children): No Medications/Allergies Home Medications Medication Instructions Recorded Confirmed Last Taken Type albuterol sulfate 90 mcg/actuation 2 puff inhalation Q6H PRN Allergy 05/04/19 10/28/21 Unknown History aerosol inhaler (ProAir HFA) Symptoms tamsulosin 0.4 mg capsule 0.4 mg PO DAILY 05/04/19 10/28/21 07/22/21 History lisinopril 20 1 tab PO DAILY 08/03/20 10/28/21 07/22/21 History mg-hydrochlorothiazide 12.5 mg tablet oxycodone 15 mg tablet 15 mg PO TID PRN Pain 08/03/20 10/28/21 07/22/21 History zolpidem 6.25 mg tablet,extended 6.25 mg PO BEDTIME 01/29/21 10/28/21 07/21/21 History release,multiphase ergocalciferol (vitamin D2) 10 mcg 10 mcg PO DAILY 05/20/21 10/28/21 07/22/21 History (400 unit) tablet magnesium 250 mg tablet 250 mg PO DAILY 05/20/21 10/28/21 07/22/21 History potassium chloride 10 mEq 10 meq PO BID 06/21/21 10/28/21 07/22/21 History capsule,extended release hwsrkxodba-clotmvrrvkwcn-kgybtsnz 1 tab PO Q4H PRN Headache 07/22/21 10/28/21 07/22/21 History 50 mg-325 mg-40 mg tablet budesonide 160 mcg-glycopyr 9 160 inh inhalation PRN 10/28/21 10/28/21 Unknown History mcg-formot 4.8 mcg/actuation HFA inhaler (Breztri Aerosphere) bupropion HCl 75 mg tablet 150 mg PO DAILY 10/28/21 10/28/21 Unknown History hydralazine 10 mg tablet 10 mg PO DAILY 10/28/21 10/28/21 Unknown History metoprolol tartrate 25 mg tablet 25 mg PO BID 10/28/21 10/28/21 Unknown History Allergies Allergy/AdvReac Type Severity Reaction Status Date / Time pentazocine [From Guera] Allergy Unknown Unknown Verified 10/02/21 09:20 [facility] Anesthesia Medical History Arthritis ASHD (arteriosclerotic heart disease) BPH (benign prostatic hyperplasia) BPH (benign prostatic hyperplasia) CHF (congestive heart failure) Chronic kidney disease Chronic migraine History of TIA (transient ischemic attack) HTN (hypertension) Lower urinary tract symptoms (LUTS) Subdural hematoma Surgical History H/O craniotomy Previous back surgery S/P carpal tunnel release S/P knee replacement S/P shoulder surgery Family History Mother , AT AGE 76 BRAIN ANEURYSM No problems noted. Father , AT AGE 84 CALL CENTER ASSOCIATE,HEART DISEASE Cancer PROSTATE CAD (coronary artery disease) Social History Smoking and tobacco status: former smoker Alcohol intake: unknown Adopted: No Caregiver/support person: No Lives independently: Yes Marital status: / Current occupational status: retired History of recent travel: No Current gender identity: Male Data Anesthesia : 10/28/21 09:36 Cardiac Studies: Echocardiogram Ultrasound 07/04/20 Transesophageal Echocardiogram 08/07/20 Sestamibi Stress Test (Cardiology) 07/12
[2021-10-28 11:02] LABS: Anion Gap 13.7 (5-19); Blood Urea Nitrogen 11 mg/dL (8-23); Calcium 8.9 mg/dL (8.5-10.5); Carbon Dioxide 31 mmol/L (22-29); Chloride 103 mmol/L (98-107); Glucose 113 mg/dL (65-115); Osmolality Calculated 298 mOsm/kg (285-295); Potassium 3.7 mmol/L (3.5-5.1); Sodium 144 mmol/L (136-145)
[2021-11-11] VITALS (20 sets, daily range): BP systolic 118–175; BP diastolic 72–109; PULSE 71–82; RESP 11–23; TEMP 36.1–37.4; O2SAT 91–99
--- NOTE | 2021-11-11 07:49 | P.ANESUD_ITS ---
Pre-Anesthetic Update Pre-Anesthetic Assessment: Date of Surgery/Procedure: 11/11/21 Preop Laisha gnosis: afib Proposed Procedure: Operation Date: 11/11/21 10:05 Proposed Procedures p Total Reverse Shoulder Arthroplasty(Left) - Richie White MD Any changes to Pre-Anesthetic Assessment?: No Vitals: Temperature 97.6 F 11/11/21 07:39 Temperature Source Temporal Artery S can 11/11/21 07:39 Pulse Rate 81 11/11/21 07:39 Respiratory Rate 17 11/11/21 07:39 Blood Pressure 149/109 11/11/21 07:39 Blood Pressure Shelbi n 122 11/11/21 07:39 Pulse Oximetry 94 11/11/21 07:39 Oxygen Delivery Me thod 11/11/21 07:39 Exam: Pre-Anes Outpt Exam: alert, oriented x 3, clear to auscultation bilaterally and regular rate & rhythm Cardiac Studies: Echocardiogram Ultrasound 07/04/20 Transesophageal Echocardiogram 08/07/20 Sestamibi Stress Test (Cardiology) 07/12
--- NOTE | 2021-11-11 08:38 | SUR.PREOP ---
0818-Patient was connected to vitals machine to monitor bp, hr and O2, time out completed at bedside with dr salguero and RN. Left shoulder block was completed in preop, patient tolerated well.
[2021-11-11] MEDS: sodium chloride 0.9% 1,000 ML 30 ML IV (08:46)
--- NOTE | 2021-11-11 08:53 | W.PM.OPSFHP ---
Same Day Surgery H&P Indication for Procedure/HPI DATE OF PROCEDURE: November 11, 2021 CHIEF COMPLAINT/INDICATIONFOR SURGICAL PROCEDURE: Left rotator cuff tear PREOP DIAGNOSIS: Rotator cuff tear arthropathy left shoulder PLANNED PROCEDURE: Operation Date: 11/11/21 10:05 Proposed Procedures p Total Reverse Shoulder Arthroplasty(Left) - Richie White MD ?This is a 76 year old male patient, he is here today for an evaluation of his bilateral shoulder pain.? He has had pain in his shoulders for over 20 years. He states that his pain has gotten increasingly worse over time. He states that he is unable to lift anything with his left shoulder and has limited ability to lift with the right.? His left shoulder is reached the point where he needs it by his side he does not use it at all.? He can do limited lifting with the right to perhaps shoulder height.? Describes as severe pain with any use. He states that he has had multiple injections to his [id number] years ago with limited improvement.? He states no injection helped more than 1 week. Pain is currently managed with oxycodone unsuccessfully Medications/Allergies* Home Medications Medication Instructions Recorded Confirmed Type albuterol sulfate 90 mcg/actuation 2 puff inhalation Q6H PRN Allergy 05/04/19 11/11/21 History aerosol inhaler (ProAir HFA) Symptoms tamsulosin 0.4 mg capsule 0.4 mg PO DAILY 05/04/19 11/11/21 History oxycodone 15 mg tablet 15 mg PO TID PRN Pain 08/03/20 11/11/21 History zolpidem 6.25 mg tablet,extended 6.25 mg PO BEDTIME 01/29/21 11/11/21 History release,multiphase ergocalciferol (vitamin D2) 10 mcg 10 mcg PO DAILY 05/20/21 11/11/21 History (400 unit) tablet magnesium 250 mg tablet 250 mg PO DAILY 05/20/21 11/11/21 History potassium chloride 10 mEq 30 meq PO BID 06/21/21 11/11/21 History capsule,extended release uauqkjpqie-hacdaafmbptfm-czxryvox 1 tab PO Q4H PRN Headache 07/22/21 11/08/21 History 50 mg-325 mg-40 mg tablet bupropion HCl 75 mg tablet 150 mg PO DAILY 10/28/21 11/11/21 History metoprolol tartrate 25 mg tablet 25 mg PO BID 10/28/21 11/11/21 History budesonide 160 mcg-glycopyr 9 160 inh inhalation BID 11/06/21 11/11/21 History mcg-formot 4.8 mcg/actuation HFA inhaler (Breztri Aerosphere) diphenhydramine HCl 50 mg capsule 50 mg PO DAILY PRN headache 11/06/21 11/11/21 History (Banophen) lisinopril 40 mg tablet 40 mg PO DAILY 11/06/21 11/11/21 History promethazine 25 mg tablet 25 mg PO TID PRN Nausea 11/06/21 11/11/21 History sumatriptan succinate 100 mg tablet 100 mg PO Q2H PRN Migraine Headache 11/06/21 11/11/21 History vitamins A,C,T-ygpr-dvrlij 14,320 1 cap PO BID 11/06/21 11/11/21 History unit-226 mg-200 unit capsule (ICaps AREDS) ketorolac 10 mg tablet 10 mg PO TID PRN Pain 11/11/21 11/11/21 History Allergies/Adverse Reactions Allergy/AdvReac Type Severity Reaction Status Date / Time pentazocine [From Guera] Allergy Unknown Unknown Verified 11/11/21 07:40 Current Medications: Generic Name Dose Route Start Last Admin Trade Name Freq PRN Reason Stop Dose Admin Sodium Chloride 1,000 mls @ 30 mls/hr 11/11/21 07:45 11/11/21 08:46 Sodium Chloride 0.9% IV 11/12/21 07:44 30 mls/hr .Q24H GENESIS Administration Pertinent History/Comorbid Conditions* Medical History (Updated 10/02/21 @ 10:12 by Richie White MD) Arthritis ASHD (arteriosclerotic heart disease) BPH (benign prostatic hyperplasia) BPH (benign prostatic hyperplasia) CHF (congestive heart failure) Chronic kidney disease Chronic migraine History of TIA (transient ischemic attack) HTN (hypertension) Lower urinary tract symptoms (LUTS) Subdural hematoma Surgical History (Updated 07/22/21 @ 14:41 by Lupillo Delcid MD) H/O craniotomy Previous back surgery S/P carpal tunnel release S/P knee replacement S/P shoulder surgery Family History (Updated 05/18/19 @ 15:04 by HARMONY Mccracken) Father, AT AGE 84 RETAIL LOAN OFFICER,HEART DISEASE Mother, AT AGE 76 BRAIN ANEURYSM CAD (coronary artery disease) Father Cancer Father PROSTATE Social History Smoking and tobacco status: former smoker Alcohol intake: unknown Adopted: No Caregiver/support person: No Lives independently: Yes Marital status: / Current occupational status: retired History of recent travel: No Current gender identity: Male Pertinent Exam Findings alert, oriented x 3, clear to auscultation bilaterally, regular rate & rhythm and operative site marked Recommendations Surgery/Procedure today Coding Level of Care Code Acute 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
--- NOTE | 2021-11-11 09:02 | ANES.PROC ---
Anesthesia Procedures Procedure/Date: 11/11/21 Nerve Block ^: Nerve Block 1: Main Anesthesia: general anesthesia Time Out Performed: Yes Consent: requested by attending/covering physician, from patient, risks and benefits reviewed and patient agrees to proceed Nerve block location: supraclavicular Anesthesia monitors applied: pulse oximetry and BP cuff Nerve block position: semi sitting Anesthetic Used: ropivicaine 0.5% Amount of anesthesia used (mL): 20 Ultrasound used to: recognize landmarks, visualize and ID brachial plexus and in supraclavicular region Nerve Stimulator Used?: Yes (Motor response lost at 0.4 mA) Interscalene/Femoral BLK: 2 stimuplex 22 g needle used for position and inplane approach, visualize local anesthetic spread and no vascular puncture identified Injection: neg aspiration of heme Patient Tolerated Procedure: well Complications: none Additional Comments: After time out sterile prep, using sterile technique, and using real time US guidance for target selection needle was inserted with real time visualization of needle entry and real time visualization of needle advancement toward intended target. Negative aspiration. LA injected incrementally with negative aspiration every 5 cc and real time US visualization of LA spread throughout procedure. Tolerated well. Image(s) saved.
[2021-11-11] MEDS: oxyCODONE 20 mg ER (12 HR) Tablet 40 MG PO (09:07)
[2021-11-11] MEDS: gabapentin 300 mg Capsule PO (09:07)
[2021-11-11] MEDS: acetaminophen 500 mg Tablet 1000 MG PO ×2 (09:08→15:33)
[2021-11-11] MEDS: CELEcoxib 200 mg Capsule 400 MG PO (09:09)
[2021-11-11] MEDS: ceFAZolin 3,000 MG in sodium chloride 0.9% (100 ml) 100 ML 200 MG IV (09:23)
[2021-11-11] MEDS: tranexamic acid 1,000 mg/10mL SDV 1000 MG IV (10:05)
--- NOTE | 2021-11-11 12:20 | XR_ITS ---
WS: [id number] XR shoulder LT min 2V* [id number] REASON FOR EXAM: Left total shoulder FINDINGS: Total reverse left shoulder arthroplasty. Bone and surgical appliances are in proper position and ali gnment. Small anchor plate on the lateral superior aspect of the proximal humerus likely related to tendon re pair. XR/XR shoulder LT min 2V* [id number] IMPRESSION: Postoperative left shoulder without abnormality.
--- NOTE | 2021-11-11 12:24 | PM.OP ---
Operative Report Date of procedure: November 11, 2021 Pre-op diagnosis: Preop Diagnosis Rotator cuff tear arthropathy left shoulder Post-op diagnosis: same Post-op findings: The patient had a complete tear of the supraspinatus and infraspinatus musculature. He had severe wear of the glenohumeral joint with posterior and superior wear. Procedure done: Right reverse total shoulder Implants: 1) Tornier Aequalis Ascend Flex 6 stem 2) Flex Shoulder System low offset tray +0mm 3) Flex Shoulder System 42 mm +6 mm reversed insert 4) Perform Reversed 29mm standard baseplate 5) Aequalis PerForm Reversed 42 mm standard glenosphere 6) Glenoid screws: central 40 mm, superior 42 mm inferior 30 mm, anterior 18 mm, posterior 18 mm Pathology: none sent Surgeon: Richie White Anesthesia: General and Nerve Block (Interscalene block) Estimated blood loss (mL): 200 Findings: The patient had a complete tear of the supraspinatus and infraspinatus tendons. He had a tear of his superior subscap with medial dislocation of the biceps tendon Condition: stable Disposition: PACU Procedure: An intrascalene blocks provided the holding area. The patient was taken to the operating room and given a general anesthesia. They were given 2 g of Ancef. A Frias stand was covered and use to support support the arm A timeout was performed. A 10 cm long incision was made over the deltopectoral groove and dissection carried out with a scalpel blade to the deltopectoral interval. The cephalic vein was identified and retracted laterally. Digital dissection was accomplished to free lesions beneath the deltoid and beneath the coracobrachialis musculature. An Abelino medium tissue protector was used to retract the pectoralis major and the deltoid. [The biceps was released and the proximal bicipital groove and secured with 2 Ethibond sutures to the pectoralis muscle]. The subscapularis and a capsule was then peeled off of the lesser tuberosity and fixed with 3 tape sutures in a locking Krak?w fashion from superior to inferior. Capsular release was accomplished across the inferior capsule from the glenoid. Utilizing electrocautery the glenoid was exposed circumferentially. The centering guide was used to place the central guidepin at a 10 degrees inferior slope in accordance with our preoperative plan to bring the glenoid down to neutral tilt. Glenoid reaming entailed removing slightly more inferior bone. A 29 mm Aequalis PerForm baseplate was secured with a 6.5 x 40 mm central screw, a superior locking 42 mm screw, an inferior locking 30 mm screw, an anterior 18 mm screw and a posterior AT mm screw. A standard 29 mm Aequalis perFORM Reversed Glenosphere was then placed. Attention was then focused on the humerus. Sequential and broaching of the canal was accomplished up to a size 6 stem with satisfactory stability.. A trial reduction with the +6 mm reversed insert provided adequate stability. The final humeral stem, reverse tray and insert were press-fit into place and the shoulder reduced with a stable reduction. 4 drill holes were then made in the bicipital groove. Sutures through the subscapularis were then passed through tunnels at the most superior suture through the most proximal hole. The second pair of sutures through the second hole, the third pair of sutures to the third hole in the fourth suture through the fourth hole. They were tied over a small Ainsley 4-hole mini plate. The wound was irrigated with a gentamycin antibiotic solution. The deltopectoral interval was closed with 0 Vicryl. The subcutaneous tissues were closed with 2-0 Stratafix. The skin was closed with a running 4-0 Stratafix. Sterile dressings were applied. The patient was placed in a [], extubated and taken to recovery room in stable condition.
--- NOTE | 2021-11-11 13:20 | SUR.PHASEI ---
1231 PT TO PACU 5 PT AWAKE AELRT HOB AT 40 DEGREES, MONITOR SR NO ECTOPY , PT ON OS MASK 8 L, PT TALKATIVE, DENIES PAIN DRESSING TO LT SHOULDER D/I SLING IN PLACE , FIRST ICE TO LT SHOULDER DISTAL LT HAND PINK WARM WITH CAP REFILL LESS THAN 2 SECONDS. IV TO RT FOREARM #18 WITH NS 250 ML NS AT KVO TEJAS PER GRAVITY, PT HAS ART LINE TO RT WRIST, PATENT , FLUSHES EASILY DISTAL FINGERS PINK WARM. PT HAS BILAT SCDS ON , AND PT GIVEN URINAL PER PT REQUEST. PT VERBALLY DENIES PAIN AND NAUSEA. PT ID BAND TO RT WRIST PT ID'D WITH 2 IDENTIFIERS.
--- NOTE | 2021-11-11 13:28 | SUR.PHASEI ---
1257 DR MATOS AT BEDSIDE, PT ON 2LNC TO KEEP SATS OVER 94% X RAY AT BEDSIDE, SURGCAL SITE UNCHANGED DISTAL HAND UNCHANGED 1309 X RAYS DONE, ART LINE TO RT WRIST REMOVED INTACT PRESSURE HELD X 10 MINUTES AND PRESSURE DRESSING TO SITE. PT AWAKE ALERT AND TALKATIVE, VSS.
--- NOTE | 2021-11-11 13:33 | SUR.PHASEI ---
PT AWAKE ALERT TAKING ICE CHIPS PT REQUESTS FOOD, PT DENIES PAIN AND NAUSEA, VSS , DRESSING UNCHANGED.
--- NOTE | 2021-11-11 13:37 | SUR.PHASEI ---
PT TAKING ICE CHIPS ART LINE SITE DRESSING LOOSENED NO BLEEDING NOTED, MONITOR SR WITH NO ECTOPY NOTED VSS UNABLE TO GET PT TO ROOM AT THIS TIME, PT RECOVERED AND OUT OF PHASE 1 AT THIS TIME , WILL UPDATE FAMILY.
--- NOTE | 2021-11-11 14:26 | SUR.PHASEI ---
PT TO FLOOR PER BED PT DAUGHTER UP TO 269 WITH PT, PT AWAKE ALERT TALKATIVE DRESSING TO LT SHOULDER D/I FIRST ICE IN PLACE, PT MOVES FINGERS TO COMMAND, DISTAL FINGERS PINK WARM WITH CAP REFILL LESS THAN 3 SECONDS, VSS PT HANDOFF AT BESIDE, DRESSING UNCHANGED. FAMILY AT BEDSIDE.
[2021-11-11] MEDS: hyDRALAzine 25 mg Tablet 75 MG PO ×2 (15:33→21:53)
[2021-11-11] MEDS: sodium chloride 0.9% 1,000 ML 80 ML IV (15:33)
--- NOTE | 2021-11-11 16:52 | ANE.PACU2 ---
Inpatient post-anesthesia follow up: Airway intact: Yes Vital signs: Temperature 98.9 F Pulse Rate 80 Respiratory Rate 22 Blood Pressure 148/82 Pulse Oximetry 96 Oxygen Delivery Me thod Nasal Cannula Oxygen Flow Rate 2 Fraction of Inspir ed Oxygen Hydration adequate: Yes Nausea and vomiting: No Pain level: 1 Mental status: Baseline
[2021-11-11] MEDS: ceFAZolin 2,000 MG in sodium chloride 0.9% (plus) 50 ML 100 MG IV (18:26)
[2021-11-11] MEDS: CELEcoxib 200 mg Capsule PO (21:52)
[2021-11-11] MEDS: metoprolol tartrate 25 mg Tablet PO (21:52)
[2021-11-11] MEDS: potassium chloride ER 10 mEq Tablet 30 MEQ PO (21:53)
[2021-11-11] MEDS: promethazine 25 mg Tablet PO (21:57)
[2021-11-11] MEDS: oxyCODONE 5 mg IR Tab/Cap 20 MG PO (22:14)
[2021-11-12] VITALS (13 sets, daily range): BP systolic 98–146; BP diastolic 78–95; PULSE 74–86; RESP 16–22; TEMP 36.5–36.9; O2SAT 91–97
[2021-11-12] MEDS: acetaminophen 500 mg Tablet 1000 MG PO ×2 (01:46→08:42)
[2021-11-12] MEDS: ceFAZolin 2,000 MG in sodium chloride 0.9% (plus) 50 ML 100 MG IV ×2 (01:47→08:43)
[2021-11-12] MEDS: morphine 4 mg/mL SDV 1 mL 2 MG IVP ×2 (02:04→10:01)
[2021-11-12] MEDS: oxyCODONE 5 mg IR Tab/Cap 20 MG PO ×2 (05:31→14:25)
[2021-11-12] MEDS: sodium chloride 0.9% 1,000 ML 80 ML IV (05:31)
[2021-11-12] MEDS: CELEcoxib 200 mg Capsule PO (08:40)
[2021-11-12] MEDS: hydroCHLOROthiazide 25 mg Tablet PO (08:40)
[2021-11-12] MEDS: tamsulosin 0.4 mg Capsule PO (08:40)
[2021-11-12] MEDS: hyDRALAzine 25 mg Tablet 75 MG PO ×2 (08:41→14:26)
[2021-11-12] MEDS: metoprolol tartrate 25 mg Tablet PO (08:41)
[2021-11-12] MEDS: lisinopril 20 mg Tablet 40 MG PO (08:42)
[2021-11-12] MEDS: buPROPion XL (24 HR) 150 mg Tablet PO (08:42)
[2021-11-12] MEDS: aspirin 325 mg EC Tablet PO (08:42)
[2021-11-12] MEDS: potassium chloride ER 10 mEq Tablet 30 MEQ PO (08:45)
--- NOTE | 2021-11-12 11:00 | PC.CHAP ---
Pastoral Care Encounter/Spiritual Assessment Type of Contact [] Declined head of training and development visit [] Patient/Family/Request visit [] Outpatient visit [] Follow-up visit [] Physician referral [] Code/Alert [x] Routine visit [] Staff referral [] Actively dying [] Patient sleeping [] Family support [] [] Out of room [] Palliative care [] [] Receiving care in room [] Pre-surgical visit [] Trauma [] Long length of stay [] ICU visit [] Other: Relational/Emotional Strength [x] Patient feels connected with others/family/visitors/staff [] Distress [] Loneliness/isolation [] Abandonment Spirituality of Patient x[] Believes in Prayer [] Reads Bible or Lutheran materials [] There are Spiritual issues to be addressed 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 Roofer Interventions [x] Prayer [x] Active listening [] Non-anxious presence [] Spiritual/emotional support [] Crisis/trauma care [] Spiritual counseling [] Bereavement support [] Provided bereavement packet [] Provided Bible/devotional materials [] Provided toy/stuffed animal, coloring book to patient or family member [] Provided Communion [] Anointing/[place] [] Salvation [x] Completed spiritual assessment [] Other: Impact on Illness or Injury [] Angry [] Fearful [] Anxious [] Often cries [] Exhaustion [] Unable to work [] Unable to attend advent [] Unable to walk/stand [] Unable to read [] Unable to drive [] Unable to eat/drink [] Unable to sleep [] Unable to be with family [] Patient intubated [] Other: Summary Time spent with patient
--- NOTE | 2021-11-12 12:53 | P.DS_ITS ---
Discharge Providers Date of Admission: 11/11/21 13:42 Date of Discharge: November 12, 2021 Attending Provider at Admission: Richie Matos MD Attending Provider at Discharge: Richie Matos MD Primary Care Provider: Igor Malikno Diagnoses at Discharge Discharge Diagnosis (1) Status post replacement of left shoulder joint: Status: Acute (2) Left rotator cuff tear arthropathy: Status: Resolved Reason for Visit Reason for Visit: OTHER SPECIFIC ARTHROPATHIES, NOT ELSEWHERE CLASS Hospital Course Hospital Course The patient tolerated surgery well. They remained hemodynamically stable. They was begun on aspirin and sequential compression dressing for DVT prophylaxis. The patient was mobilized with therapy beginning the day of surgery and by the first postoperative day independent with the walker. As the pain was adequately controlled and they were fully mobile they were discharged home. Physical Exam Narrative: On the day of discharge the patient's dressing was clean and dry. The patient's would fire his deltoid and their biceps. No distal neurovascular deficits were noted. Discharge Data Studies Completed and Pending Completed Studies During Hospitalization Category Date Time Status XR shoulder LT min 2V* [id number] Routine Exams 11/11/21 12:20 Completed Radiology Impressions Shoulder X-Ray 11/11/21 12:20 IMPRESSION: Postoperative left shoulder without abnormality. Laboratory Results Sodium 144 mmol/L (136-145) 10/28/21 09:36 Potassium 3.7 mmol/L (3.5-5.1) 10/28/21 09:36 Chloride 103 mmol/L (98-107) 10/28/21 09:36 Carbon Dioxide 31 mmol/L (22-29) H 10/28/21 09:36 Anion Gap 13.7 (5-19) 10/28/21 09:36 BUN 11 mg/dL (8-23) 10/28/21 09:36 Creatinine 1.0 mg/dL (0.7-1.2) 10/28/21 09:36 GFR Calculation Not Reportable 10/28/21 09:36 Glucose 113 mg/dL (65-115) 10/28/21 09:36 Calculated Osmolality 298 mOsm/kg (285-295) H 10/28/21 09:36 Calcium 8.9 mg/dL (8.5-10.5) 10/28/21 09:36 Vitals Last Vital Signs Temp 98.0 F 11/12/21 11:39 Pulse 78 11/12/21 11:43 Resp 18 11/12/21 11:39 BP 134/78 11/12/21 11:43 Pulse Ox 93 11/12/21 11:39 O2 Del Method 11/12/21 11:39 O2 Flow Rate 1 11/12/21 06:20 Discharge Plan Discharge Patient Disposition: Home Condition: Stable Prescriptions: New oxycodone 20 mg tablet 20 mg PO Q4H PRN (Reason: Moderate Pain) 7 Days Qty: 30 0RF acetaminophen 500 mg Tablet 1,000 mg PO Q8H 14 Days Qty: 84 0RF aspirin 325 mg Tablet,Delayed Release (Dr/Ec) 325 mg PO DAILY 30 Days Qty: 30 0RF celecoxib 200 mg Capsule 200 mg PO BID@0900,2100 14 Days Qty: 28 0RF Continued albuterol sulfate [ProAir HFA] 90 mcg/actuation HFA aerosol inhaler 2 puff INHALATION Q6H PRN (Reason: Allergy Symptoms) tamsulosin 0.4 mg capsule 0.4 mg PO DAILY potassium chloride 10 mEq capsule, extended release 30 meq PO BID zolpidem 6.25 mg tablet,ext release multiphase 6.25 mg PO BEDTIME diphenhydramine HCl [Banophen] 50 mg capsule 50 mg PO DAILY PRN (Reason: headache) sumatriptan succinate 100 mg tablet 100 mg PO Q2H PRN (Reason: Migraine Headache) Rx Instructions: do not exceed 2 doses per 24 hrs promethazine 25 mg tablet 25 mg PO TID PRN (Reason: Nausea) lisinopril 40 mg tablet 40 mg PO DAILY ICaps AREDS 14,320-226-200 [id number]-bf-eryb capsule 1 cap PO BID nitroglycerin [Nitrostat] 0.4 mg tablet, sublingual 0.4 mg sublingual Q5M PRN (Reason: chest pain) Qty: 25 3RF Rx Instructions: do not exceed 3 doses per episode hydrochlorothiazide 25 mg tablet 25 mg PO DAILY Qty: 30 6RF hydralazine 50 mg tablet 75 mg PO TID Qty: 140 6RF ergocalciferol (vitamin D2) [Vitamin D2] 10 mcg (400 unit) Tablet 10 mcg PO DAILY magnesium 250 mg Tablet 250 mg PO DAILY [id number]-gemhioorsqtcw-ivjp 50-325-40 mg Tablet 1 tab PO Q4H PRN (Reason: Headache) bupropion HCl [Wellbutrin] 75 mg Tablet 150 mg PO DAILY metoprolol tartrate 25 mg tablet 25 mg PO BID Breztri Aerosphere 160-9-4.8 mcg/actuation HFA aerosol inhaler 160 inh INHALATION BID Held oxycodone 15 mg Tablet 15 mg PO TID PRN (Reason: Pain) Hold Instructions: Resume on 11/26/21. ketorolac 10 mg Tablet 10 mg PO TID PRN (Reason: Pain) Hold Instructions: Resume on 11/26/21. Discharge Orders: Discharge Order (Routine); Ordered 11/12/21 Ordered By: Richie Matos Referrals: [facility] [Outside] Discharge Diet: Advance as tolerated Discharge Activity: Limit activity as instructed Patient Instructions: Opioid Safety Activity Restrictions/Additional Instructions: Okay to shower. No soaking incision in tub Apply FirstIce up to 20 min/hr for pain and swelling Take Celebrex twice a day for the next 15 days for pain , discontinue other anti-inflammatories Take Tylenol 500mg (up to 2 tabs) 3 times a day for mild pain take oxycodone 20 mg for breakthrough pain. Exercises per Occupational Therapy IF HAVE ANY PROBLEMS OR QUESTIONS CALL [facility]OSPITAL INJECTION SPECIALIST AT AND ASK TO HAVE DR. MATOS PAGED. Discharge Attestations Time Spent in Discharge Care*: other Quality Metrics Clinical Quality Measures [ No reported AMI, CVA or VTE this stay] Coding Level of Care Code Acute Chg FW DC note Diagnoses Status post replacement of left shoulder joint Z96.612 Left rotator cuff tear arthropathy M75.102; M12.812
== END 2021-11-12 15:00 | disposition home or self-care (01) ==
LOC: MEDSURG 13:42
PROVIDERS: Anesthesiology; Admitting Provider Orthopaedic Surgery; PCP Family Medicine; Visit Provider Orthopaedic Surgery
PROC: (CPT 23472; principal; 2021-11-11 10:05)
DX: M75.122 Complete rotator cuff tear or rupture of left shoulder, not specified as traumatic (principal); I13.0 Hypertensive heart and chronic kidney disease with heart failure and stage 1 through stage 4 chronic kidney disease, or unspecified chronic kidney disease; I50.9 Heart failure, unspecified; N18.9 Chronic kidney disease, unspecified; J44.9 Chronic obstructive pulmonary disease, unspecified; I25.10 Atherosclerotic heart disease of native coronary artery without angina pectoris; G47.30 Sleep apnea, unspecified; I48.91 Unspecified atrial fibrillation; E66.01 Morbid (severe) obesity due to excess calories; Z68.41 Body mass index [BMI] 40.0-44.9, adult; Z86.73 Personal history of transient ischemic attack (TIA), and cerebral infarction without residual deficits; Z87.891 Personal history of nicotine dependence
CPT/HCPCS: 23472; 73030; 80048; 97166; C1713; C1776; G0378; J1100; J1580; J2270; J2370; J2405; J2704; J2710; J2795; J3010; J3490; J7030; Q0169

== ENCOUNTER → 2021-11-15 10:03 | Outpatient (BNVA) | payer MEDICARE, SELFPAY | PROVIDERS: PCP Family Medicine; Visit Provider Nurse Practitioner Family | DX: Z96.612 Presence of left artificial shoulder joint (principal) | CPT/HCPCS: 99024 ==

== ENCOUNTER → 2021-12-06 11:29 | Outpatient (BNVA) | payer MEDICARE, SELFPAY | PROVIDERS: PCP Family Medicine; Visit Provider Nurse Practitioner Family | DX: Z47.1 Aftercare following joint replacement surgery (principal); Z96.612 Presence of left artificial shoulder joint | CPT/HCPCS: 73030; 99024 ==

== ENCOUNTER 2022-01-23 20:57 | Emergency (ER) | payer MEDICARE, SELFPAY ==
[2022-01-23 20:58] VITALS: BP 174/122; PULSE 93; RESP 16; TEMP 36.8; O2SAT 96; BMI 40.3
--- NOTE | 2022-01-23 21:02 | CTR_ITS ---
PROCEDURE INFORMATION: Exam: CT Head Without Contrast Exam date and time: 01/23/2022 9:20 PM Age: 76 years old Clinical indication: Pain; Headache; Prior surgery; Surgery date: 6+ months; Surgery type: For brain bleed; Additional info: STAFFORD TECHNIQUE: Imaging protocol: Computed tomography of the head without contrast. Radiation optimization: All CT scans at this facility use at least one of these dose optimization techniques: automated exposure control; mA and/or kV adjustment per patient size (includes targeted exams where dose is matched to clinical indication); or iterative reconstruction. COMPARISON: CT head wo con* [id number] 07/22/2021 12:11 PM RADIATION DOSE METRICS: Total DLP (mGy-cm): 1243.2 FINDINGS: Brain: There are global involutional changes of the brain which are in keeping with the patient's age. Periventricular hypodensities are nonspecific but most likely reflect chronic microvascular ischemic disease. No acute intracranial hemorrhage is seen. No mass effect or midline shift. Cerebral ventricles: No ventriculomegaly. Paranasal sinuses: There is minimal sinus mucosal disease, with no air-fluid level identified. Mastoid air cells: There is minimal partial opacification of the left mastoid air cells. Bones/joints: Previous left craniotomy and underlying hypodense extra-axial collection are unchanged compared to 07/22/2021. No acute calvarial fracture is seen. No destructive osseous lesions identified. Soft tissues: Unremarkable. CT/CT head wo con* [id number] IMPRESSION: 1. Stable postoperative changes of previous left craniotomy. 2. No acute intracranial hemorrhage, mass effect or midline shift.
[2022-01-23 21:04] VITALS: BP 163/95; PULSE 86; RESP 16; TEMP 36.8; O2SAT 96
--- NOTE | 2022-01-23 21:06 | ED_ITS ---
HPI - Headache General: Chief Complaint: Headache Stated Complaint: HEADACHE Time Seen by Provider: 01/23/22 21:01 Source: patient and EMS Mode of arrival: EMS Limitations: no limitations History of Present Illness: 76-year-old male has a history of migraines he states that he has had a migraine headache that started roughly 2 hours ago he states has been having them this week states 1 tonight is worse than typical. States it started gradually is worsened and he has photophobia phonophobia has had some nausea denies vomiting denies any fever or neck pain. Associated symptoms: Deny chest pain, fever(s), nausea, rash or vomiting Review of Systems Const: Denies: fever(s), chills, body aches or change in appetite Eyes: Denies: blurry vision or eye discomfort ENMT: Denies: throat pain or dental pain Card: Denies: chest pain Resp: Denies: dyspnea GI: Denies: abdominal pain, nausea, vomiting or diarrhea : Denies: dysuria Musc: Denies: neck pain or back pain Skin/Breast: Denies: rash Neuro: Reports: headache(s) Psych: Denies: depression Matti/Lymph: Denies: easy bruising All/Imm: Denies: urticaria PFSH ED PFSH: Medical History Arthritis ASHD (arteriosclerotic heart disease) BPH (benign prostatic hyperplasia) BPH (benign prostatic hyperplasia) CHF (congestive heart failure) Chronic kidney disease Chronic migraine History of TIA (transient ischemic attack) HTN (hypertension) Lower urinary tract symptoms (LUTS) Subdural hematoma Surgical History H/O craniotomy Previous back surgery S/P carpal tunnel release S/P knee replacement S/P shoulder surgery Family History Mother , AT AGE 76 BRAIN ANEURYSM No problems noted. Father , AT AGE 84 APPLICATION PACKAGER,HEART DISEASE Cancer PROSTATE CAD (coronary artery disease) Social History Smoking and tobacco status: former smoker Alcohol intake: unknown Adopted: No Caregiver/support person: No Lives independently: Yes Marital status: / Current occupational status: retired History of recent travel: No Current gender identity: Male Physical Exam Const: COMMON NORMALS: no acute distress, patient oriented x3 and healthy appearing HENMT: COMMON NORMALS: normocephalic and atraumatic HEAD & SCALP: normocephalic and atraumatic Eye: COMMON NORMALS: Equal, round and reactive pupils present and EOMs intact bilaterally PUPIL: Yes Equal, round and reactive pupils present Neck/C-Spine: COMMON NORMALS: full ROM and supple Chest: COMMONS NORMALS: normal inspection of the chest and normal palpation of entire chest wall Resp: COMMON NORMALS: normal respiratory effort, No retractions, No use of accessory muscles and clear to auscultation bilaterally AUSCULTATION: clear to auscultation bilaterally Cardio: COMMON NORMALS: regular rate, regular rhythm and No murmurs present (Cardio) RATE: regular rate RHYTHM: regular rhythm GI: COMMON NORMALS: Normal to inspection, nondistended, normoactive bowel sounds present, Soft to palpation, non-tender and no masses PALPATION: Yes Soft to palpation Extremity: COMMON NORMALS: normal to inspection and full ROM Neuro: COMMON NORMALS: patient oriented x3, moves all extremities and no focal motor deficits Psych: COMMON NORMALS: mental status grossly normal, Normal thought process present and cooperative THOUGHT PROCESS: Normal thought process present Skin: COMMON NORMALS: no rashes or lesions noted and no wounds GENERAL SKIN EXAM: no rashes or lesions noted Course Vital Signs: Vital signs: Vital Signs Temperature 98.2 F 01/23/22 23:04 Pulse Rate 81 01/23/22 23:04 Respiratory Rate 16 01/23/22 23:04 Blood Pressure 151/111 01/23/22 23:04 Pulse Oximetry 94 01/23/22 23:04 Oxygen Delivery Me thod 01/23/22 23:04 MDM - Headache Medical Decision Making Patient presents with a headache his headache is improved here CT head along with CT angio normal no signs of aneurysm or bleed he is to follow-up with his PCP and return if worsening he understands agrees to plan. He had no fever no neck stiffness no signs of meningitis. Lab Data Radiology Impressions Head CT 01/23/22 21:02 IMPRESSION: 1. Stable postoperative changes of previous left craniotomy. 2. No acute intracranial hemorrhage, mass effect or midline shift. Head/Neck CTA 01/23/22 22:52 IMPRESSION: No large vessel stenosis or occlusion. IMPRESSION: No stenosis or occlusion. REFERENCES: NASCET CRITERIA. The degree of stenosis in the cervical segment of the internal carotid artery is based on NASCET criteria. Normal is no stenosis. Mild is less than 50% stenosis. Moderate is 50-69% stenosis. Severe is 70% to 99% stenosis. Total occlusion is no detectable patent lumen. Discharge Plan Discharge Patient Disposition: Home Clinical Impression: Headache Condition: Stable Prescriptions: No Action albuterol sulfate [ProAir HFA] 90 mcg/actuation HFA aerosol inhaler 2 puff INHALATION Q6H PRN (Reason: Allergy Symptoms) tamsulosin 0.4 mg capsule 0.4 mg PO DAILY potassium chloride 10 mEq capsule, extended release 30 meq PO BID zolpidem 6.25 mg tablet,ext release multiphase 6.25 mg PO BEDTIME diphenhydramine HCl [Banophen] 50 mg capsule 50 mg PO DAILY PRN (Reason: headache) sumatriptan succinate 100 mg tablet 100 mg PO Q2H PRN (Reason: Migraine Headache) Rx Instructions: do not exceed 2 doses per 24 hrs promethazine 25 mg tablet 25 mg PO TID PRN (Reason: Nausea) lisinopril 40 mg tablet 40 mg PO DAILY ICaps AREDS 14,320-226-200 xzqw-zl-vnpt capsule 1 cap PO BID nitroglycerin [Nitrostat] 0.4 mg tablet, sublingual 0.4 mg sublingual Q5M PRN (Reason: chest pain) Qty: 25 3RF Rx Instructions: do not exceed 3 doses per episode hydrochlorothiazide 25 mg tablet 25 mg PO DAILY Qty: 30 6RF hydralazine 50 mg tablet 75 mg PO TID Qty: 140 6RF oxycodone 15 mg Tablet 15 mg PO TID PRN (Reason: Pain) Hold Instructions: Resume on 11/26/21. ergocalciferol (vitamin D2) 10 mcg (400 unit) Tablet 10 mcg PO DAILY magnesium 250 mg Tablet 250 mg PO DAILY xhyylsupar-pzhipuhccxhlm-nhco 50-325-40 mg Tablet 1 tab PO Q4H PRN (Reason: Headache) bupropion HCl 75 mg Tablet 150 mg PO DAILY metoprolol tartrate 25 mg tablet 25 mg PO BID Breztri Aerosphere 160-9-4.8 mcg/actuation HFA aerosol inhaler 160 inh INHALATION BID ketorolac 10 mg Tablet 10 mg PO TID PRN (Reason: Pain) Hold Instructions: Resume on 11/26/21. Discharge Orders: Discharge ED (Routine); Ordered 01/24/22 Ordered By: Elsy Beyer Referrals: Igor Aguilera [Primary Care Provider] - 1-3 days Discharge Diet: Advance as tolerated Discharge Activity: Resume usual activity Patient Instructions: General Headache (ED) Coding Level of Care Code ED Carpet Measurer for Chg Fwd Exam Comprehensive
[2022-01-23] MEDS: diphenhydrAMINE 50 mg/mL SDV 1mL 25 MG IVP (21:49)
[2022-01-23] MEDS: metoclopramide 5 mg/mL SDV 2 mL IVP ×2 (21:49→22:36)
[2022-01-23] MEDS: ketorolac 30 mg/mL INJ 15 MG IVP (21:58)
[2022-01-23] MEDS: morphine 4 mg/mL SDV 1 mL IVP (22:36)
--- NOTE | 2022-01-23 22:52 | CTR_ITS ---
PROCEDURE INFORMATION: Exam: CTA Head With Contrast, Arteriography Exam date and time: 01/23/2022 11:41 PM Age: 76 years old Clinical indication: Pain; Headache; Prior surgery; Surgery date: 6+ months; Additional info: [facility]AFFORD TECHNIQUE: Imaging protocol: Computed tomographic angiography of the head with contrast. Exam focused on the arteries. 3D rendering (Not supervised by radiologist): MIP and/or 3D reconstructed images were created by the technologist. Radiation optimization: All CT scans at this facility use at least one of these dose optimization techniques: automated exposure control; mA and/or kV adjustment per patient size (includes targeted exams where dose is matched to clinical indication); or iterative reconstruction. Contrast material: OMNI 350; Contrast volume: 100 ml; Contrast route: INTRAVENOUS (IV); COMPARISON: CT angio headneck* [id number] 07/22/2021 3:05 PM RADIATION DOSE METRICS: Total DLP (mGy-cm): 572.65 FINDINGS: ANTERIOR CIRCULATION: Right internal carotid artery: Intracranial segment is patent with no significant stenosis. No aneurysm. Right middle cerebral artery: No occlusion or significant stenosis. No aneurysm. Right anterior cerebral artery: No occlusion or significant stenosis. No aneurysm. Left internal carotid artery: Intracranial segment is patent with no significant stenosis. No aneurysm. Left middle cerebral artery: No occlusion or significant stenosis. No aneurysm. Left anterior cerebral artery: No occlusion or significant stenosis. No aneurysm. POSTERIOR CIRCULATION: Right vertebral artery: No occlusion or significant stenosis. No aneurysm. Left vertebral artery: No occlusion or significant stenosis. No aneurysm. Basilar artery: No occlusion or significant stenosis. No aneurysm. Right posterior cerebral artery: No occlusion or significant stenosis. No aneurysm. Left posterior cerebral artery: No occlusion or significant stenosis. No aneurysm. Brain: No definite mass, mass effect, or midline shift. Mild diffuse cerebral atrophy. Cerebral ventricles: No ventriculomegaly. Bones/joints: Status post left craniotomy. No acute fracture. Soft tissues: Unremarkable. PROCEDURE INFORMATION: Exam: CTA Neck With Contrast Exam date and time: 01/23/2022 11:41 PM Age: 76 years old Clinical indication: Pain; Headache; Prior surgery; Surgery date: 6+ months; Additional info: STAFFORD TECHNIQUE: Imaging protocol: Computed tomographic angiography of the neck with contrast. 3D rendering (Not supervised by radiologist): MIP and/or 3D reconstructed images were created by the technologist. Radiation optimization: All CT scans at this facility use at least one of these dose optimization techniques: automated exposure control; mA and/or kV adjustment per patient size (includes targeted exams where dose is matched to clinical indication); or iterative reconstruction. Contrast material: OMNI 350; Contrast volume: 100 ml; Contrast route: INTRAVENOUS (IV); COMPARISON: CT angio headneck* [id number] 07/22/2021 3:05 PM RADIATION DOSE METRICS: Total DLP (mGy-cm): 572.65 FINDINGS: Right common carotid artery: No stenosis. No dissection or occlusion. Right internal carotid artery: No stenosis of the extracranial segment. No dissection or occlusion. Right external carotid artery: No occlusion or stenosis of the origin. Left common carotid artery: No stenosis. No dissection or occlusion. Left internal carotid artery: No stenosis of the extracranial segment. No dissection or occlusion. Left external carotid artery: No occlusion or stenosis of the origin. Right vertebral artery: No stenosis. No dissection or occlusion. Left vertebral artery: No stenosis. No dissection or occlusion. Soft tissues: Normal. No significant soft tissue swelling. Bones/joints: No acute osseous findings. [facility] [id number] IMPRESSION: No large vessel stenosis or occlusion. IMPRESSION: No stenosis or occlusion. REFERENCES: NASCET CRITERIA. The degree of stenosis in the cervical segment of the internal carotid artery is based on NASCET criteria. Normal is no stenosis. Mild is less than 50% stenosis. Moderate is 50-69% stenosis. Severe is 70% to 99% stenosis. Total occlusion is no detectable patent lumen.
[2022-01-23] MEDS: haloperidol inj 5 mg/mL INJ 1 mL 2 MG IVP (22:57)
[2022-01-23] MEDS: HYDROmorphone 1 mg/mL INJ 1 mL 0.5 MG IVP (22:58)
[2022-01-23 23:04] VITALS: BP 151/111; PULSE 81; RESP 16; TEMP 36.8; O2SAT 94
[2022-01-24 01:09] VITALS: BP 145/87; PULSE 80; RESP 16; TEMP 36.8; O2SAT 96
== END 2022-01-24 01:00 | disposition home or self-care (01) ==
PROVIDERS: Emergency Provider Emergency Medicine; PCP Family Medicine
DX: R51.9 Headache, unspecified (principal); Z87.891 Personal history of nicotine dependence; I13.0 Hypertensive heart and chronic kidney disease with heart failure and stage 1 through stage 4 chronic kidney disease, or unspecified chronic kidney disease; N18.9 Chronic kidney disease, unspecified; I50.9 Heart failure, unspecified
CPT/HCPCS: 70450; 70496; 70498; 96374; 96375; 96376; 99285; J1170; J1200; J1630; J1885; J2270; J2765; Q9967

== ENCOUNTER 2022-02-09 16:02 | Emergency (ER) | payer MEDICARE, SELFPAY ==
[2022-02-09 16:09] VITALS: BP 161/93; PULSE 84; RESP 14; O2SAT 96; BMI 40.8
--- NOTE | 2022-02-09 16:42 | CTR_ITS ---
PROCEDURE INFORMATION: Exam: CT Head Without Contrast Exam date and time: 02/09/2022 4:53 PM Age: 76 years old Clinical indication: Pain; Headache; Prior surgery; Additional info: Frontal headache; No trauma; Mild HTN TECHNIQUE: Imaging protocol: Computed tomography of the head without contrast. Radiation optimization: All CT scans at this facility use at least one of these dose optimization techniques: automated exposure control; mA and/or kV adjustment per patient size (includes targeted exams where dose is matched to clinical indication); or iterative reconstruction. COMPARISON: CT head wo con* [id number] 01/23/2022 9:20 PM RADIATION DOSE METRICS: Total DLP (mGy-cm): 1167.14 FINDINGS: Brain: Mild atrophy and mild white matter chronic microvascular changes are noted. No hemorrhage or evidence of acute infarction. A small chronic epidural fluid collection and mild dural thickening are again seen in the left frontoparietal convexity subjacent to the craniotomy. Cerebral ventricles: No ventriculomegaly. Paranasal sinuses: Visualized sinuses are unremarkable. No fluid levels. Mastoid air cells: Visualized mastoid air cells are well aerated. Bones/joints: Left temporoparietal craniotomy a.m. appreciated. No acute fracture. Soft tissues: Unremarkable. CT/CT head wo con* [id number] IMPRESSION: No acute intracranial abnormality..
--- NOTE | 2022-02-09 16:43 | ECG_ITS ---
[facility] Test Date: 2022-02-09 Pat Name: Dajuan Presley Department: Room: Gender: Male Sap Abap Developer: : 1945 Requested By: Jerad Guillen Order Number: [id number] Reading MD: Winston Ríos M.D. Measurements Intervals [place] Rate: 82 P: 0 MA: 0 QRS: -14 QRSD: 118 T: 31 QT: 367 QTc: 429 Interpretive Statements Sinus rhythm with significant baseline artifact MODERATE INTRAVENTRICULAR CONDUCTION DELAY [110+ ms QRS DURATION] MODERATE ST DEPRESSION [0.05+ mV ST DEPRESSION] Compared to ECG 07/22/2021 13:28:45 ST (T wave) deviation now present Electronically Signed On 02-10-2022 14:56:50 CRIB ATTENDANT by Winston Ríos M.D. [id number]
--- NOTE | 2022-02-09 16:44 | W.ED.HA ---
HPI - Headache General: Chief Complaint: Headache Stated Complaint: HEADACHE Time Seen by Provider: 02/09/22 16:09 Source: patient Mode of arrival: EMS Limitations: no limitations History of Present Illness: See nursing assessment. Patient states he has had a migraine headache since around 2:00 yesterday afternoon. States he has tried his sumatriptan and Tylenol and oxycodone with only partial relief. States his headache is similar in nature to previous headaches except mildly more severe than normal. States the pain is behind both eyes as a pressure sensation and radiates to his frontal scalp. He denies any change in his vision. He states he does have some photosensitivity but denies any neck pain or rash. Denies any nausea or vomiting. Denies any change in speech or vision otherwise. Patient denies any fever or chills. Denies any cough. States he feels like he might have irregular heartbeat. He has had atrial fibrillation in the past. Associated symptoms: Deny chest pain, confusion, fever(s), lightheadedness, nausea, rash, syncope or vomiting Review of Systems Const: Denies: fever(s) or chills Eyes: Reports: other (Mild photosensitivity); Denies: change in vision ENMT: Denies: throat pain Card: Reports: irregular heart rhythm; Denies: chest pain, edema, lightheadedness or syncope Resp: Denies: dyspnea, productive cough, non-productive cough or wheezing GI: Denies: abdominal pain, nausea or vomiting : Denies: flank pain Musc: Denies: neck pain, back pain, extremity pain or extremity swelling Skin/Breast: Denies: rash or pruritus Neuro: Reports: headache(s); Denies: numbness in extremities, weakness in extremities, sensory changes, lack of coordination, dizziness, vertigo, confusion, behavioral changes or Slurred speech present Psych: Denies: anxiety Matti/Lymph: Denies: enlarged lymph nodes PFSH ED PFSH: Medical History Arthritis ASHD (arteriosclerotic heart disease) BPH (benign prostatic hyperplasia) BPH (benign prostatic hyperplasia) CHF (congestive heart failure) Chronic kidney disease Chronic migraine History of TIA (transient ischemic attack) HTN (hypertension) Lower urinary tract symptoms (LUTS) Subdural hematoma Surgical History H/O craniotomy Previous back surgery S/P carpal tunnel release S/P knee replacement S/P shoulder surgery Family History Mother , AT AGE 76 BRAIN ANEURYSM No problems noted. Father , AT AGE 84 KITCHEN AND BATH DESIGNER,HEART DISEASE Cancer PROSTATE CAD (coronary artery disease) Social History Smoking and tobacco status: former smoker Alcohol intake: unknown Adopted: No Caregiver/support person: No Lives independently: Yes Marital status: / Current occupational status: retired History of recent travel: No Current gender identity: Male Supplemental [facility] [place] Information: Chronic history of migraine headaches Physical Exam Const: COMMON NORMALS: no acute distress, patient oriented x3, no limitations and well nourished GENERAL APPEARANCE: cooperative HENMT: COMMON NORMALS: normocephalic and atraumatic HEAD & SCALP: normocephalic and atraumatic FACE & SINUS: normal facial exam Eye: COMMON NORMALS: Equal, round and reactive pupils present and EOMs intact bilaterally PUPIL: Yes Equal, round and reactive pupils present OTHER: Mild photosensitivity but no true photophobia. Neck/C-Spine: COMMON NORMALS: full ROM, no lymphadenopathy, supple and no meningeal signs GENERAL: Yes normal visual inspection OTHER: Neck is nontender. No nuchal rigidity. Normal range of motion. Lymph: LYMPHATIC: no lymphadenopathy noted Chest: COMMONS NORMALS: normal inspection of the chest and normal palpation of entire chest wall CHEST: No Ecchymosis present and No rash Resp: COMMON NORMALS: normal respiratory effort, No retractions and clear to auscultation bilaterally EFFORT & INSPECTION: No respiratory distress AUSCULTATION: clear to auscultation bilaterally Cardio: COMMON NORMALS: regular rate, regular rhythm and Peripheral pulses 2+ throughout JUGULAR VENOUS DISTENTION: no JVD RATE: regular rate RHYTHM: regular rhythm PERIPHERAL PULSES: Peripheral pulses 2+ throughout GI: COMMON NORMALS: Normal to inspection, nondistended, normoactive bowel sounds present and non-tender : COMMON NORMALS: Yes no CVA tenderness BLADDER/KIDNEY EXAM: Yes no CVA tenderness Back/Pelvis: COMMON NORMALS: no CVA tenderness Extremity: COMMON NORMALS: normal to inspection, full ROM and capillary refill normal Neuro: COMMON NORMALS: patient oriented x3, CN's II-XII intact bilaterally, no focal motor deficits and no sensory deficits noted MENINGEAL SIGNS: Yes no meningeal signs DEEP TENDON REFLEXES: Rt Biceps (C5, C6): 2+, Left biceps reflex intensity grade: 2+, Right patellar reflex intensity grade: 2+ and Left patellar reflex intensity grade: 2+ OTHER: No focal deficits. Speech is clear. Psych: COMMON NORMALS: mental status grossly normal and Normal thought process present THOUGHT PROCESS: Normal thought process present Skin: COMMON NORMALS: no rashes or lesions noted and no wounds GENERAL SKIN EXAM: no rashes or lesions noted Course Vital Signs: Vital signs: Vital Signs Pulse Rate 81 02/09/22 18:00 Respiratory Rate 14 02/09/22 16:09 Blood Pressure 157/99 02/09/22 18:00 Pulse Oximetry 95 02/09/22 18:00 Oxygen Delivery Me thod 02/09/22 18:00 MDM - Headache Medical Decision Making Likely migraine headache. Blood pressure little bit high at 156/102. [address] scan of the head to rule out intracranial hemorrhage. Will give small dose of hydralazine bring blood pressure down. This may help his headache. Patient states he does well with Toradol. Upon review of previous chemistries, patient does not have any history of acute kidney injury or chronic kidney disease. 1730: Patient reevaluated. Patient states headache is much improved. He states he still has slight headache. Blood pressure 151/104. Will give additional hydralazine. Awaiting lab results. 1845: Patient is feeling better, still has mild headache. We will try Depakote for pain. Patient has already taking oxycodone at home about 3 hours ago. Lab Data 02/09/22 18:11 02/09/22 18:[address] 02/09/22 16:42 IMPRESSION: No acute intracranial abnormality.. Laboratory Results WBC 8.2 10^3/uL (4.0-10.0) 02/09/22 18:11 RBC 5.00 10^6/uL (4.1-5.3) 02/09/22 18:11 Hgb 16.1 g/dL (11.7-16.6) 02/09/22 18:11 Hct 49.7 % (42.0-52.0) 02/09/22 18:11 MCV 99.4 fl (80-94) H 02/09/22 18:11 MCH 32.2 pg (28.0-34.0) 02/09/22 18:11 MCHC 32.4 g/dL (30.0-36.0) 02/09/22 18:11 RDW 13.6 % (12.1-15.1) 02/09/22 18:11 Plt Count 116 10^3/cmm (130-400) L 02/09/22 18:11 MPV 11.1 fL (7.4-10.4) H 02/09/22 18:11 Neut % (Auto) 59.4 % 02/09/22 18:11 Lymph % (Auto) 29.2 % 02/09/22 18:11 [place] % (Auto) 9.3 % 02/09/22 18:11 Eos % (Auto) 1.5 % 02/09/22 18:11 Baso % (Auto) 0.2 % 02/09/22 18:11 Neut # (Auto) 4.88 10^3/uL (1.8-7.7) 02/09/22 18:11 Lymph # (Auto) 2.4 10^3/uL (0.8-4.8) 02/09/22 18:11 [place] # (Auto) 0.8 10^3/uL (0.2-0.9) 02/09/22 18:11 Eos # (Auto) 0.1 10^3/uL (0.0-0.8) 02/09/22 18:11 Baso # (Auto) 0.0 10^3/uL (0.0-0.1) 02/09/22 18:11 Nucleated RBC % (auto) 0 % 02/09/22 18:11 Nucleated RBCs # 0.0 /100WBC 02/09/22 18:11 Sodium 129 mmol/L (136-145) L 02/09/22 18:11 Potassium 4.4 mmol/L (3.5-5.1) 02/09/22 18:11 Chloride 94 mmol/L (98-107) L 02/09/22 18:11 Carbon Dioxide 29 mmol/L (22-29) 02/09/22 18:11 Anion Gap 10.4 (5-19) 02/09/22 18:11 BUN 14 mg/dL (8-23) 02/09/22 18:11 Creatinine 0.9 mg/dL (0.7-1.2) 02/09/22 18:11 GFR Calculation Not Reportable 02/09/22 18:11 Glucose 103 mg/dL (65-115) 02/09/22 18:11 Calculated Osmolality 269 mOsm/kg (285-295) L 02/09/22 18:11 Calcium 9.5 mg/dL (8.5-10.5) 02/09/22 18:[address] Head: Radiologist's impression: PROCEDURE INFORMATION: Exam: CT Head Without Contrast Exam date and time: 02/09/2022 4:53 PM Age: 76 years old Clinical indication: Pain; Headache; Prior surgery; Additional info: Frontal headache; No trauma; Mild HTN TECHNIQUE: Imaging protocol: Computed tomography of the head without contrast. Radiation optimization: All CT scans at this facility use at least one of these dose optimization techniques: automated exposure control; mA and/or kV adjustment per patient size (includes targeted exams where dose is matched to clinical indication); or iterative reconstruction. COMPARISON: CT head wo con* [id number] 01/23/2022 9:20 PM RADIATION DOSE METRICS: Total DLP (mGy-cm): 1167.14 FINDINGS: Brain: Mild atrophy and mild white matter chronic microvascular changes are noted. No hemorrhage or evidence of acute infarction. A small chronic epidural fluid collection and mild dural thickening are again seen in the left frontoparietal convexity subjacent to the craniotomy. Cerebral ventricles: No ventriculomegaly. Paranasal sinuses: Visualized sinuses are unremarkable. No fluid levels. Mastoid air cells: Visualized mastoid air cells are well aerated. Bones/joints: Left temporoparietal craniotomy a.m. appreciated. No acute fracture. Soft tissues: Unremarkable. CT/CT head wo con* [id number] IMPRESSION:? No acute intracranial abnormality.. ? Dictated By: Roscoe Johnson MD Signed By: Roscoe Johnson MD Signed Date/Time: 02/09/22 0170 EKG Data EKG 1: I personally reviewed and interpreted this EKG as follows: EKG interpretation date: 02/09/22 EKG interpretation time: 17:12 Interpretation: Impression atrial fibrillation with rate control with heart rate of 82. Much artifact. Left axis. IVCD. Nonspecific ST changes throughout. Normal T waves. Patient may have a sinus arrhythmia but difficult to tell due to much artifact. Discharge Plan Discharge Patient Disposition: Home Clinical Impression: Essential hypertension Migraine Qualifiers: Migraine type: without aura Status migrainosus presence: with status migrainosus Intractability: not intractable Qualified Code(s): G43.001 - Migraine without aura, not intractable, with status migrainosus Condition: Stable Prescriptions: New Depakote 250 mg tablet,delayed release (DR/EC) 250 mg PO Q12H PRN (Reason: headache) Qty: 30 1RF ketorolac 10 mg tablet 10 mg PO Q8H PRN (Reason: pain) Qty: 6 0RF Rx Instructions: patient had iv toradol in ER No Action albuterol sulfate [ProAir HFA] 90 mcg/actuation HFA aerosol inhaler 2 puff INHALATION Q6H PRN (Reason: Allergy Symptoms) tamsulosin 0.4 mg capsule 0.4 mg PO DAILY potassium chloride 10 mEq capsule, extended release 30 meq PO BID zolpidem 6.25 mg tablet,ext release multiphase 6.25 mg PO BEDTIME diphenhydramine HCl [Banophen] 50 mg capsule 50 mg PO DAILY PRN (Reason: headache) sumatriptan succinate 100 mg tablet 100 mg PO Q2H PRN (Reason: Migraine Headache) Rx Instructions: do not exceed 2 doses per 24 hrs promethazine 25 mg tablet 25 mg PO TID PRN (Reason: Nausea) lisinopril 40 mg tablet 40 mg PO DAILY ICaps AREDS [id number],[id number] [id number]-ko-[id number] capsule 1 cap PO BID nitroglycerin [Nitrostat] 0.4 mg tablet, sublingual 0.4 mg sublingual Q5M PRN (Reason: chest pain) Qty: 25 3RF Rx Instructions: do not exceed 3 doses per episode hydrochlorothiazide 25 mg tablet 25 mg PO DAILY Qty: 30 6RF hydralazine 50 mg tablet 75 mg PO TID Qty: 140 6RF oxycodone 15 mg Tablet 15 mg PO TID PRN (Reason: Pain) Hold Instructions: Resume on 11/26/21. ergocalciferol (vitamin D2) 10 mcg (400 unit) Tablet 10 mcg PO DAILY magnesium 250 mg Tablet 250 mg PO DAILY kjlqjyykhd-wjuqpsbzzeshk-esse 50-325-40 mg Tablet 1 tab PO Q4H PRN (Reason: Headache) bupropion HCl 75 mg Tablet 150 mg PO DAILY metoprolol tartrate 25 mg tablet 25 mg PO BID Breztri Aerosphere 160-9-4.8 mcg/actuation HFA aerosol inhaler 160 inh INHALATION BID ketorolac 10 mg Tablet 10 mg PO TID PRN (Reason: Pain) Hold Instructions: Resume on 11/26/21. Discharge Orders: Discharge ED (Routine); Ordered 02/09/22 Ordered By: Jerad Garcia Referrals: Igor Aguilera [Primary Care Provider] - 1-3 days Discharge Diet: Cardiac Discharge Activity: Increase activity as tolerated Patient Instructions: Headache - Migraine (Adult), Hypertension (ED), Opioid Safety, Pain Management Activity Restrictions/Additional Instructions: Continue home medications as prescribed. Add Depakote 250 mg every 12 hours as needed for headache. Consult your doctor this week to see if he wants to continue this on a regular basis. CT scan of your head tonight was unremarkable. 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
[2022-02-09] MEDS: hyDRALAzine 20 mg/mL INJ 1 mL 5 MG IVP ×2 (17:10→17:51)
[2022-02-09] MEDS: ketorolac 30 mg/mL INJ IVP (17:10)
[2022-02-09 17:14] VITALS: PULSE 87; O2SAT 96
[2022-02-09 17:46] VITALS: BP 162/111; O2SAT 95
[2022-02-09 18:00] VITALS: BP 157/99; PULSE 81; O2SAT 95
[2022-02-09 18:19] LABS: Basophils % 0.2 %; Eosinophils # 0.1 10^3/uL (0.0-0.8); Eosinophils % 1.5 %; Hematocrit 49.7 % (42.0-52.0); Hemoglobin 16.1 g/dL (11.7-16.6); Lymphocytes # 2.4 10^3/uL (0.8-4.8); Lymphocytes % 29.2 %; Mean Corpuscular HGB Conc 32.4 g/dL (30.0-36.0); Mean Corpuscular Hemoglobin 32.2 pg (28.0-34.0); Mean Corpuscular Volume 99.4 fl (80-94); Mean Platelet Volume 11.1 fL (7.4-10.4); Monocytes # 0.8 10^3/uL (0.2-0.9); Monocytes % 9.3 %; Neutrophils # 4.88 10^3/uL (1.8-7.7); Neutrophils % 59.4 %; Nucleated Red Blood Cells % 0 %; Platelet Count 116 10^3/cmm (130-400); Red Cell Distribution Width 13.6 % (12.1-15.1); White Blood Count 8.2 10^3/uL (4.0-10.0)
[2022-02-09] MEDS: acetaminophen 325 mg Tablet 650 MG PO (18:29)
[2022-02-09 18:39] LABS: Anion Gap 10.4 (5-19); Blood Urea Nitrogen 14 mg/dL (8-23); Calcium 9.5 mg/dL (8.5-10.5); Carbon Dioxide 29 mmol/L (22-29); Chloride 94 mmol/L (98-107); Glucose 103 mg/dL (65-115); Osmolality Calculated 269 mOsm/kg (285-295); Potassium 4.4 mmol/L (3.5-5.1); Sodium 129 mmol/L (136-145)
[2022-02-09] MEDS: divalproex ER 500 mg Tablet (24H) PO (18:46)
[2022-02-09 19:04] VITALS: BP 157/99; PULSE 89; O2SAT 96
== END 2022-02-09 19:00 | disposition home or self-care (01) ==
PROVIDERS: Emergency Provider Family Medicine; PCP Family Medicine
DX: G43.001 Migraine without aura, not intractable, with status migrainosus (principal); Z87.891 Personal history of nicotine dependence; I13.0 Hypertensive heart and chronic kidney disease with heart failure and stage 1 through stage 4 chronic kidney disease, or unspecified chronic kidney disease; N18.9 Chronic kidney disease, unspecified; I50.9 Heart failure, unspecified
CPT/HCPCS: 70450; 80048; 85025; 93005; 96374; 96375; 96376; 99285; J0360; J1885

== ENCOUNTER → 2022-02-12 11:08 | Outpatient (BNVA) | payer MEDICARE, SELFPAY | PROVIDERS: PCP Family Medicine; Visit Provider Nurse Practitioner Family | DX: Z96.612 Presence of left artificial shoulder joint (principal) | CPT/HCPCS: 73030; 99213 ==

== ENCOUNTER 2022-02-17 08:11 | Emergency (ER) | payer MEDICARE, SELFPAY ==
[2022-02-17 08:18] VITALS: BP 148/87; PULSE 70; RESP 15; TEMP 36.6; O2SAT 98; BMI 40.7
--- NOTE | 2022-02-17 08:29 | ECG_ITS ---
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 Measurements Intervals [place] Rate: 67 P: -31 ME: 81 QRS: -20 QRSD: 110 T: -29 QT: 365 QTc: 386 Interpretive Statements SINUS RHYTHM WITH SHORT ME INTERVAL WITH OCCASIONAL VENTRICULAR PREMATURE COMPLEXES LOW QRS VOLTAGE IN PRECORDIAL LEADS [QRS DEFLECTION < 1.0 mV IN CHEST LEADS] NONSPECIFIC ST & T-WAVE ABNORMALITY Compared to ECG 02/09/2022 17:08:54 Ventricular premature complex(es) now present Short ME interval now present Low QRS voltage now present T-wave abnormality now present Intraventricular conduction delay no longer present ST (T wave) deviation no longer present Electronically Signed On 02-17-2022 19:48:54 SUPERVISOR AIRPLANE FLIGHT ATTENDANT by Derian Garcia M.D. [id number]
--- NOTE | 2022-02-17 08:30 | XR_ITS ---
WS: [id number] Exam: XR chest 1V portable [id number] Date/Time of Exam: 02/17/2022 8:43 AM Reason For Exam: dyspnea/cough Comparison 05/20/2021. The lungs are clear and fully inflated. Cardiomediastinal silhouette is unremarkable for technique. N o pleural effusions. Regional bony structures are intact. Reverse left shoulder prosthesis noted. XR/XR chest 1V portable [id number] IMPRESSION: 1. No acute cardiopulmonary finding. No change.
[2022-02-17 08:44] VITALS: RESP 16
[2022-02-17] MEDS: promethazine 25 mg/mL SDV 1 mL IM (08:52)
[2022-02-17 08:54] LABS: Basophils % 0.3 %; Eosinophils # 0.1 10^3/uL (0.0-0.8); Hematocrit 47.3 % (42.0-52.0); Hemoglobin 14.9 g/dL (11.7-16.6); Lymphocytes # 1.5 10^3/uL (0.8-4.8); Lymphocytes % 20.6 %; Mean Corpuscular HGB Conc 31.5 g/dL (30.0-36.0); Mean Corpuscular Volume 101.7 fl (80-94); Mean Platelet Volume 11.6 fL (7.4-10.4); Monocytes # 0.6 10^3/uL (0.2-0.9); Monocytes % 8.6 %; Neutrophils # 5.04 10^3/uL (1.8-7.7); Neutrophils % 69.1 %; Nucleated Red Blood Cells % 0 %; Platelet Count 111 10^3/cmm (130-400); Red Blood Count 4.65 10^6/uL (4.1-5.3); Red Cell Distribution Width 14.1 % (12.1-15.1); White Blood Count 7.3 10^3/uL (4.0-10.0)
[2022-02-17] MEDS: ketorolac 30 mg/mL INJ 15 MG IVP (08:55)
[2022-02-17] MEDS: ipratropium-albuterol 3 mL Neb INHALATION (09:02)
[2022-02-17 09:03] VITALS: PULSE 67; RESP 18; O2SAT 97
[2022-02-17 09:08] VITALS: PULSE 64
--- NOTE | 2022-02-17 09:12 | ED_ITS ---
HPI - Headache General: Chief Complaint: Headache Stated Complaint: migraine Time Seen by Provider: 02/17/22 08:17 Source: patient Mode of arrival: ambulatory History of Present Illness: 76-year-old male presents emergency room com plaining of a headache. Has had a headache for the last 2 days. He was seen last week in the emergency room for similar type presentation CT head done at that time was negative. He is not on any anticoagulants he states he previously had an intracranial bleed. Required surgical intervention. He states since then he has episodes of severe headache he feels like it also exacerbates his COPD. He has had sumatriptan for this in the past. Previously ketorolac is worked well needs to come to the emergency room. He also takes oxycodone at home which she has a prescription for. MD elicited complaint: migraine Pertinent past history: migraines Onset (ago): day(s) (2) Onset description: suddenly Location: frontal Severity: severe Quality & Timing: sharp Exacerbating factors: light and noise Relieving factors: rest and dark room Associated symptoms: Deny chest pain, confusion, cough, diaphoresis, eye pain, e ye redness, fever(s), lightheadedness, loss of vision, malaise, nausea, neck stiffness, numbness, paresthesias, photophobia, pre-syncope, rash, seizures, short of breath, sound sensitivity, syncope, vomiting or weakness Treatments prior to arrival: none Review of Systems Const: Denies: fever(s), chills, fatigue, malaise or diaphoresis ENMT: Denies: throat pain, ear or mastoid pain, nasal discharge or nasal congestion Card: Denies: chest pain, palpitations, irregular heart rhythm, edema, lightheadedness, syncope or pre-syncope Resp: Denies: dyspnea, productive cough or non-productive cough GI: Reports: abdominal pain; Denies: nausea or vomiting : Denies: flank pain, difficulty urinating, dysuria, urinary frequency or urinary urgency Skin/Breast: Denies: rash Neuro: Denies: confusion PFSH ED PFSH: Medical History Arthritis ASHD (arteriosclerotic heart disease) BPH (benign prostatic hyperplasia) BPH (benign prostatic hyperplasia) CHF (congestive heart failure) Chronic kidney disease Chronic migraine History of TIA (transient ischemic attack) HTN (hypertension) Lower urinary tract symptoms (LUTS) Subdural hematoma Surgical History H/O craniotomy Previous back surgery S/P carpal tunnel release S/P knee replacement S/P shoulder surgery Family History Mother , AT AGE 76 BRAIN ANEURYSM No problems noted. Father , AT AGE 84 OIL FIELD EQUIPMENT MECHANIC SUPERVISOR,HEART DISEASE Cancer PROSTATE CAD (coronary artery disease) Social History Smoking and tobacco status: former smoker Alcohol intake: unknown Adopted: No Caregiver/support person: No Lives independently: Yes Marital status: / Current occupational status: retired History of recent travel: No Current gender identity: Male Physical Exam Const: GENERAL APPEARANCE: cooperative and comfortable ORIENTATION/CONSCIOUSNESS: Yes awake, Yes oriented to person, Yes oriented to place and Yes oriented to time HENMT: COMMON NORMALS: normocephalic, atraumatic and hearing grossly normal bilaterally HEAD & SCALP: normocephalic and atraumatic Eye: COMMON NORMALS: Equal, round and reactive pupils present, EOMs intact bilaterally, conjunctivae normal and no scleral icterus CONJUNCTIVA: Yes conjunctivae normal PUPIL: Yes Equal, round and reactive pupils present DIRECT OPHTHALMOSCOPY: No photophobia Neck/C-Spine: COMMON NORMALS: full ROM, no lymphadenopathy, supple and no JVD Resp: COMMON NORMALS: normal respiratory effort, No retractions, No use of accessory muscles and clear to auscultation bilaterally AUSCULTATION: clear to auscultation bilaterally Cardio: COMMON NORMALS: no JVD, regular rate, regular rhythm and No murmurs present (Cardio) RATE: regular rate RHYTHM: regular rhythm GI: COMMON NORMALS: Soft to palpation and No hepatosplenomegaly present AUSCULTATION: Yes normoactive bowel sounds PALPATION: Yes Soft to palpation, No Tenderness to palpation present (GI), No Guarding due to palpation present (GI) and Yes No hepatosplenomegaly present Extremity: COMMON NORMALS: normal to inspection, capillary refill normal, no clubbing, cyanosis or edema, no calf tenderness and no pedal edema Neuro: SENSORIUM/ORIENTATION: Yes oriented to person, Yes oriented to place and Yes oriented to time Skin: COMMON NORMALS: no rashes or lesions noted GENERAL SKIN EXAM: no rashes or lesions noted Course Vital Signs: Vital signs: Vital Signs Temperature 97.9 F 02/17/22 08:18 Pulse Rate 64 02/17/22 09:08 Respiratory Rate 18 02/17/22 09:03 Blood Pressure 148/87 02/17/22 08:18 Pulse Oximetry 97 02/17/22 09:03 Oxygen Delivery Me thod 02/17/22 09:03 MDM - Headache Medical Decision Making Patient's headache is much improved. He said similar examples in the past. There is no trauma involved. Neurologic he has no focal deficits. We will go ahead and discharge patient home encouraged him to follow-up with neurology. Medical Records I reviewed the patient's medical records. Lab Data I reviewed the patient's lab results. 02/17/22 08:41 02/17/22 08:41 Radiology Impressions Chest X-Ray 02/17/22 08:30 IMPRESSION: 1. No acute cardiopulmonary finding. No change. Laboratory Results WBC 7.3 10^3/uL (4.0-10.0) 02/17/22 08:41 RBC 4.65 10^6/uL (4.1-5.3) 02/17/22 08:41 Hgb 14.9 g/dL (11.7-16.6) 02/17/22 08:41 Hct 47.3 % (42.0-52.0) 02/17/22 08:41 MCV 101.7 fl (80-94) H 02/17/22 08:41 MCH 32.0 pg (28.0-34.0) 02/17/22 08:41 MCHC 31.5 g/dL (30.0-36.0) 02/17/22 08:41 RDW 14.1 % (12.1-15.1) 02/17/22 08:41 Plt Count 111 10^3/cmm (130-400) L 02/17/22 08:41 MPV 11.6 fL (7.4-10.4) H 02/17/22 08:41 Neut % (Auto) 69.1 % 02/17/22 08:41 Lymph % (Auto) 20.6 % 02/17/22 08:41 [place] % (Auto) 8.6 % 02/17/22 08:41 Eos % (Auto) 1.0 % 02/17/22 08:41 Baso % (Auto) 0.3 % 02/17/22 08:41 Neut # (Auto) 5.04 10^3/uL (1.8-7.7) 02/17/22 08:41 Lymph # (Auto) 1.5 10^3/uL (0.8-4.8) 02/17/22 08:41 [place] # (Auto) 0.6 10^3/uL (0.2-0.9) 02/17/22 08:41 Eos # (Auto) 0.1 10^3/uL (0.0-0.8) 02/17/22 08:41 Baso # (Auto) 0.0 10^3/uL (0.0-0.1) 02/17/22 08:41 Nucleated RBC % (auto) 0 % 02/17/22 08:41 Nucleated RBCs # 0.0 /100WBC 02/17/22 08:41 Sodium 140 mmol/L (136-145) 02/17/22 08:41 Potassium 4.3 mmol/L (3.5-5.1) 02/17/22 08:41 Chloride 101 mmol/L (98-107) 02/17/22 08:41 Carbon Dioxide 29 mmol/L (22-29) 02/17/22 08:41 Anion Gap 14.3 (5-19) 02/17/22 08:41 BUN 15 mg/dL (8-23) 02/17/22 08:41 Creatinine 0.9 mg/dL (0.7-1.2) 02/17/22 08:41 GFR Calculation Not Reportable 02/17/22 08:41 Glucose 203 mg/dL (65-115) H 02/17/22 08:41 Calculated Osmolality 297 mOsm/kg (285-295) H 02/17/22 08:41 Calcium 9.1 mg/dL (8.5-10.5) 02/17/22 08:41 Total Bilirubin 0.9 mg/dL (0.15-1.2) 02/17/22 08:41 AST 45 U/L (0-40) H 02/17/22 08:41 ALT 40 U/L (0-41) 02/17/22 08:41 Alkaline Phosphatase 102 U/L (40-130) 02/17/22 08:41 Total Protein 7.0 g/dL (6.6-8.7) 02/17/22 08:41 Albumin 3.9 g/dL (3.5-5.2) 02/17/22 08:41 Globulin 3.1 g/dL (1.3-4.6) 02/17/22 08:41 Discharge Plan Discharge Patient Disposition: Home Clinical Impression: Migraine Condition: Stable Prescriptions: No Action albuterol sulfate [ProAir HFA] 90 mcg/actuation HFA aerosol inhaler 2 puff INHALATION Q6H PRN (Reason: Allergy Symptoms) tamsulosin 0.4 mg capsule 0.4 mg PO DAILY potassium chloride 10 mEq capsule, extended release 30 meq PO BID zolpidem 6.25 mg tablet,ext release multiphase 6.25 mg PO BEDTIME diphenhydramine HCl [Banophen] 50 mg capsule 50 mg PO DAILY PRN (Reason: headache) sumatriptan succinate 100 mg tablet 100 mg PO Q2H PRN (Reason: Migraine Headache) Rx Instructions: do not exceed 2 doses per 24 hrs promethazine 25 mg tablet 25 mg PO TID PRN (Reason: Nausea) lisinopril 40 mg tablet 40 mg PO DAILY ICaps AREDS 14,320-226-200 [id number]-wn-sasv capsule 1 cap PO BID nitroglycerin [Nitrostat] 0.4 mg tablet, sublingual 0.4 mg sublingual Q5M PRN (Reason: chest pain) Qty: 25 3RF Rx Instructions: do not exceed 3 doses per episode hydrochlorothiazide 25 mg tablet 25 mg PO DAILY Qty: 30 6RF hydralazine 50 mg tablet 75 mg PO TID Qty: 140 6RF oxycodone 15 mg Tablet 15 mg PO TID PRN (Reason: Pain) Hold Instructions: Resume on 11/26/21. ergocalciferol (vitamin D2) 10 mcg (400 unit) Tablet 10 mcg PO DAILY magnesium 250 mg Tablet 250 mg PO DAILY Depakote 250 mg tablet,delayed release (DR/EC) 250 mg PO Q12H PRN (Reason: headache) Qty: 30 1RF ketorolac 10 mg tablet 10 mg PO Q8H PRN (Reason: pain) Qty: 6 0RF Rx Instructions: patient had iv toradol in ER ueuznzfsyb-nbgsqgnfpwvun-ljau 50-325-40 mg Tablet 1 tab PO Q4H PRN (Reason: Headache) bupropion HCl 75 mg Tablet 150 mg PO DAILY metoprolol tartrate 25 mg tablet 25 mg PO BID Breztri Aerosphere 160-9-4.8 mcg/actuation HFA aerosol inhaler 160 inh INHALATION BID ketorolac 10 mg Tablet 10 mg PO TID PRN (Reason: Pain) Hold Instructions: Resume on 11/26/21. Discharge Orders: Discharge ED (Routine); Ordered 02/17/22 Ordered By: Sami Larose Referrals: Igor Aguilera [Primary Care Provider] - Discharge Diet: Usual diet Discharge Activity: Resume usual activity Patient Instructions: Opioid Safety, Pain Management Activity Restrictions/Additional Instructions: You were seen today for migraine headache. Since you improved with medications given there is no history of trauma no repeat imaging was done. If your symptoms worsen or change he can return to emergency room do recommend he follow-up with your neurologist when you are able. Coding Level of Care Code ED Sales Account Associate for Chg Fwd Exam Comprehensive
[2022-02-17 09:14] LABS: Alanine Aminotransferase 40 U/L (0-41); Albumin Level 3.9 g/dL (3.5-5.2); Alkaline Phosphatase 102 U/L (40-130); Anion Gap 14.3 (5-19); Aspartate Amino Transferase 45 U/L (0-40); Blood Urea Nitrogen 15 mg/dL (8-23); Calcium 9.1 mg/dL (8.5-10.5); Carbon Dioxide 29 mmol/L (22-29); Chloride 101 mmol/L (98-107); Globulin 3.1 g/dL (1.3-4.6); Glucose 203 mg/dL (65-115); Osmolality Calculated 297 mOsm/kg (285-295); Potassium 4.3 mmol/L (3.5-5.1); Sodium 140 mmol/L (136-145); Total Bilirubin 0.9 mg/dL (0.15-1.2)
== END 2022-02-17 11:35 | disposition home or self-care (01) ==
PROVIDERS: Emergency Provider Family Medicine; PCP Family Medicine
DX: G43.909 Migraine, unspecified, not intractable, without status migrainosus (principal)
CPT/HCPCS: 71045; 80053; 85025; 93005; 94640; 96372; 96374; 99285; J1885; J2550

== ENCOUNTER → 2022-05-21 14:11 | Outpatient (BNVA) | payer MEDICARE, SELFPAY | PROVIDERS: PCP Family Medicine; Visit Provider Nurse Practitioner Family | DX: I25.10 Atherosclerotic heart disease of native coronary artery without angina pectoris (principal); I13.0 Hypertensive heart and chronic kidney disease with heart failure and stage 1 through stage 4 chronic kidney disease, or unspecified chronic kidney disease; N18.9 Chronic kidney disease, unspecified; I50.32 Chronic diastolic (congestive) heart failure; Z87.891 Personal history of nicotine dependence | CPT/HCPCS: 99214 ==

== ENCOUNTER 2022-07-10 02:37 | Emergency (ER) | payer MEDICARE, SELFPAY ==
[2022-07-10] VITALS (8 sets, daily range): BP systolic 140–151; BP diastolic 59–84; PULSE 70–75; RESP 16–28; TEMP 36.8; O2SAT 90–99; BMI 39.4
--- NOTE | 2022-07-10 02:45 | ECG_ITS ---
[facility] Test Date: 2022-07-10 Pat Name: Dajuan Presley Department: Room: Gender: Male Lead Setter: : 1945 Requested By: Elsy Beyer Order Number: [id number] Stevie MD: Winston Ríos M.D. Measurements Intervals [place] Rate: 71 P: -84 [place]: 131 QRS: -19 QRSD: 118 T: -7 QT: 413 QTc: 452 Interpretive Statements Sinus RHYTHM INCOMPLETE RIGHT BUNDLE BRANCH BLOCK [90+ ms QRS DURATION, TERMINAL R IN V1/V2, 40+ ms S IN I/aVL/V4/V5/V6] ABNORMAL RHYTHM ECG Compared to ECG 02/17/2022 08:43:49 Junctional rhythm now present Incomplete right bundle-branch block now present Short [place] interval no longer present T-wave abnormality no longer present Electronically Signed On 07-10-2022 14:00:40 CDT by Winston Ríos M.D. [id number]
--- NOTE | 2022-07-10 02:45 | XRR_ITS ---
PROCEDURE INFORMATION: Exam: XR Chest Exam date and time: 07/10/2022 3:05 AM Age: 76 years old Clinical indication: Shortness of breath; Additional info: SOB TECHNIQUE: Imaging protocol: Radiologic exam of the chest. Views: 1 view. COMPARISON: CR XR chest 1V portable [id number] 02/17/2022 8:45 AM FINDINGS: Lungs: Emphysematous change and mild interstitial prominence. Pleural spaces: Bilateral pleural thickening. Heart/Mediastinum: Epicardial fat accentuates the cardiac silhouette. Vasculature: Calcification and ectasia of the thoracic aorta. Bones/joints: Left shoulder arthroplasty. Osteopenia and degenerative change. XR/XR chest 1V portable [id number] IMPRESSION: 1. Emphysematous change and mild interstitial prominence. 2. Additional findings as described above.
[2022-07-10] MEDS: ketorolac 30 mg/mL INJ 15 MG IVP (02:52)
[2022-07-10] MEDS: dexamethasone 10 mg/mL INJ IVP (02:53)
--- NOTE | 2022-07-10 02:53 | W.ED.SOB ---
HPI - SOB/Dyspnea General: Chief Complaint: Shortness of Breath/Dyspnea Stated Complaint: RESP. DISTRESS Time Seen by Provider: 07/10/22 02:41 Source: patient and EMS Mode of arrival: EMS Limitations: no limitations History of Present Illness: HPI Narrative: 76-year-old male states he has had chronic dyspnea states he recently diagnosed with CHF start Lasix 3 days ago he states he had some worsening shortness of breath tonight I did turn his oxygen off here and he is 93% on room air he has a headache he has a history of migraines rates his headache an 8 out of 10 states it began gradually feels like his previous migraines denies any fever he has a chronic cough. He denies any chest pain. Associated symptoms: Deny abdominal pain, chest pain, fever(s), nausea or vomiting Review of Systems Const: Denies: fever(s) or chills Eyes: Denies: eye discomfort ENMT: Denies: throat pain or dental pain Card: Denies: chest pain Resp: Reports: dyspnea GI: Denies: abdominal pain, nausea, vomiting or diarrhea : Denies: dysuria Musc: Denies: neck pain or back pain Skin/Breast: Denies: rash Neuro: Reports: headache(s) PFSH ED PFSH: Medical History Arthritis ASHD (arteriosclerotic heart disease) BPH (benign prostatic hyperplasia) BPH (benign prostatic hyperplasia) CHF (congestive heart failure) Chronic kidney disease Chronic migraine History of TIA (transient ischemic attack) HTN (hypertension) Lower urinary tract symptoms (LUTS) Subdural hematoma Surgical History H/O craniotomy Previous back surgery S/P carpal tunnel release S/P knee replacement S/P shoulder surgery Family History Mother , AT AGE 76 BRAIN ANEURYSM No problems noted. Father , AT AGE 84 MEDICAL OFFICE RECEPTIONIST ASSISTANT,HEART DISEASE Cancer PROSTATE CAD (coronary artery disease) Social History Smoking and tobacco status: former smoker Alcohol intake: unknown Substance/Drug Use: unknown Adopted: No Caregiver/support person: No Lives independently: Yes Marital status: / Current occupational status: retired Current gender identity: Male Physical Exam Const: COMMON NORMALS: no acute distress and patient oriented x3 HENMT: COMMON NORMALS: normocephalic and atraumatic HEAD & SCALP: normocephalic and atraumatic Eye: COMMON NORMALS: conjunctivae normal CONJUNCTIVA: Yes conjunctivae normal Neck/C-Spine: COMMON NORMALS: full ROM and supple Chest: COMMONS NORMALS: normal inspection of the chest and normal palpation of entire chest wall Resp: COMMON NORMALS: normal respiratory effort, No retractions, No use of accessory muscles and clear to auscultation bilaterally AUSCULTATION: clear to auscultation bilaterally and wheezes Cardio: COMMON NORMALS: regular rate, regular rhythm and No murmurs present (Cardio) RATE: regular rate RHYTHM: regular rhythm GI: COMMON NORMALS: Normal to inspection, nondistended, normoactive bowel sounds present, Soft to palpation, non-tender and no masses PALPATION: Yes Soft to palpation Extremity: COMMON NORMALS: normal to inspection and full ROM Neuro: COMMON NORMALS: patient oriented x3, moves all extremities and no focal motor deficits Psych: COMMON NORMALS: mental status grossly normal, Normal thought process present and cooperative THOUGHT PROCESS: Normal thought process present Skin: COMMON NORMALS: no rashes or lesions noted and no wounds GENERAL SKIN EXAM: no rashes or lesions noted Course Vital Signs: Vital signs: Vital Signs Temperature 98.2 F 07/10/22 02:40 Pulse Rate 72 07/10/22 04:27 Respiratory Rate 18 07/10/22 04:27 Blood Pressure 151/84 07/10/22 04:27 Pulse Oximetry 90 07/10/22 04:27 Oxygen Delivery Me thod Room Air 07/10/22 04:27 Oxygen Flow Rate 2 07/10/22 02:40 MDM - SOB/Dyspnea Medical Decision Making Patient presents for some dyspnea likely from CHF I did have him ambulate here he stayed around 92 to 94% when he ambulated I did give him IV Lasix he just started Lasix 2 days ago he is on antibiotics currently uses nebulizer at home as well. I did speak to him and offered him admission he states he feels improved and would like to try his treatment at home still I informed he has any worsening symptoms he is to return he understands agrees to plan. Lab Data 07/10/22 02:59 07/10/22 02:59 Labs/Radiology: Laboratory Results WBC 6.7 10^3/uL (4.0-10.0) 07/10/22 02:59 RBC 4.36 10^6/uL (4.1-5.3) 07/10/22 02:59 Hgb 14.0 g/dL (11.7-16.6) 07/10/22 02:59 Hct 44.1 % (42.0-52.0) 07/10/22 02:59 MCV 101.1 fl (80-94) H 07/10/22 02:59 MCH 32.1 pg (28.0-34.0) 07/10/22 02:59 MCHC 31.7 g/dL (30.0-36.0) 07/10/22 02:59 RDW 13.1 % (12.1-15.1) 07/10/22 02:59 Plt Count 142 10^3/cmm (130-400) 07/10/22 02:59 MPV 10.9 fL (7.4-10.4) H 07/10/22 02:59 Neut % (Auto) 81.5 % 07/10/22 02:59 Lymph % (Auto) 9.9 % 07/10/22 02:59 Glenn % (Auto) 8.1 % 07/10/22 02:59 Eos % (Auto) 0.0 % 07/10/22 02:59 Baso % (Auto) 0.1 % 07/10/22 02:59 Neut # (Auto) 5.44 10^3/uL (1.8-7.7) 07/10/22 02:59 Lymph # (Auto) 0.7 10^3/uL (0.8-4.8) L 07/10/22 02:59 Glenn # (Auto) 0.5 10^3/uL (0.2-0.9) 07/10/22 02:59 Eos # (Auto) 0.0 10^3/uL (0.0-0.8) 07/10/22 02:59 Baso # (Auto) 0.0 10^3/uL (0.0-0.1) 07/10/22 02:59 Nucleated RBC % (auto) 0 % 07/10/22 02:59 Nucleated RBCs # 0.0 /100WBC 07/10/22 02:59 PT 13.20 SECONDS (12.1-14.9) 07/10/22 02:59 INR 0.97 (0.8-1.2) 07/10/22 02:59 Sodium 140 mmol/L (136-145) 07/10/22 02:59 Potassium 4.5 mmol/L (3.5-5.1) 07/10/22 02:59 Chloride 100 mmol/L (98-107) 07/10/22 02:59 Carbon Dioxide 31 mmol/L (22-29) H 07/10/22 02:59 Anion Gap 13.5 (5-19) 07/10/22 02:59 BUN 22 mg/dL (8-23) 07/10/22 02:59 Creatinine 1.3 mg/dL (0.7-1.2) H 07/10/22 02:59 GFR Calculation Not Reportable 07/10/22 02:59 Glucose 199 mg/dL (65-115) H 07/10/22 02:59 Calculated Osmolality 299 mOsm/kg (285-295) H 07/10/22 02:59 Calcium 9.1 mg/dL (8.5-10.5) 07/10/22 02:59 Total Bilirubin 0.2 mg/dL (0.15-1.2) 07/10/22 02:59 AST 32 U/L (0-40) 07/10/22 02:59 ALT 23 U/L (0-41) 07/10/22 02:59 Alkaline Phosphatase 101 U/L (40-130) 07/10/22 02:59 NT-Pro-B Natriuret Pep 1423 pg/mL (0-450) H 07/10/22 02:59 Total Protein 6.7 g/dL (6.6-8.7) 07/10/22 02:59 Albumin 3.8 g/dL (3.5-5.2) 07/10/22 02:59 Globulin 2.9 g/dL (1.3-4.6) 07/10/22 02:59 SARS-CoV-2 Ag (Rapid) negative (Negative) 07/10/22 03:07 Discharge Plan Discharge Patient Disposition: Home Clinical Impression: CHF (congestive heart failure), Breath shortness Condition: Stable Prescriptions: No Action albuterol sulfate [ProAir HFA] 90 mcg/actuation HFA aerosol inhaler 2 puff INHALATION Q6H PRN (Reason: Allergy Symptoms) tamsulosin 0.4 mg capsule 0.4 mg PO DAILY potassium chloride 10 mEq capsule, extended release 30 meq PO BID zolpidem 6.25 mg tablet,ext release multiphase 6.25 mg PO BEDTIME diphenhydramine HCl [Banophen] 50 mg capsule 50 mg PO DAILY PRN (Reason: headache) sumatriptan succinate 100 mg tablet 100 mg PO Q2H PRN (Reason: Migraine Headache) Rx Instructions: do not exceed 2 doses per 24 hrs promethazine 25 mg tablet 25 mg PO TID PRN (Reason: Nausea) lisinopril 40 mg tablet 40 mg PO DAILY nitroglycerin [Nitrostat] 0.4 mg tablet, sublingual 0.4 mg sublingual Q5M PRN (Reason: chest pain) Qty: 25 3RF Rx Instructions: do not exceed 3 doses per episode hydrochlorothiazide 25 mg tablet 25 mg PO DAILY Qty: 30 6RF Hold Instructions: Patient No Longer Taking ketorolac 10 mg tablet 10 mg PO DAILY PRN (Reason: pain) Rx Instructions: patient had iv toradol in ER Myrbetriq 25 mg tablet extended release 24 hr 25 mg PO DAILY hydralazine 100 mg tablet 100 mg PO TID Qty: 270 2RF oxycodone 15 mg Tablet 15 mg PO TID PRN (Reason: Pain) Hold Instructions: Resume on 11/26/21. magnesium 250 mg Tablet 250 mg PO DAILY Depakote 250 mg tablet,delayed release (DR/EC) 250 mg PO Q12H PRN (Reason: headache) Qty: 30 1RF otiovmjvtt-hnypfauhljrvx-oipc 50-325-40 mg Tablet 1 tab PO Q4H PRN (Reason: Headache) bupropion HCl 75 mg Tablet 150 mg PO DAILY metoprolol tartrate 25 mg tablet 25 mg PO BID Breztri Aerosphere 160-9-4.8 mcg/actuation HFA aerosol inhaler 160 inh INHALATION BID Discharge Orders: Discharge ED (Routine); Ordered 07/10/22 Ordered By: Elsy Beyer Referrals: Igor Aguilera [Primary Care Provider] - 1-3 days Discharge Diet: Advance as tolerated Discharge Activity: Resume usual activity Patient Instructions: Heart Failure (ED) Coding Level of Care Code ED Skip Hoist Operator for Zahraa Julio
[2022-07-10 03:06] LABS: Basophils % 0.1 %; Hematocrit 44.1 % (42.0-52.0); Lymphocytes # 0.7 10^3/uL (0.8-4.8); Lymphocytes % 9.9 %; Mean Corpuscular HGB Conc 31.7 g/dL (30.0-36.0); Mean Corpuscular Hemoglobin 32.1 pg (28.0-34.0); Mean Corpuscular Volume 101.1 fl (80-94); Mean Platelet Volume 10.9 fL (7.4-10.4); Monocytes # 0.5 10^3/uL (0.2-0.9); Monocytes % 8.1 %; Neutrophils # 5.44 10^3/uL (1.8-7.7); Neutrophils % 81.5 %; Nucleated Red Blood Cells % 0 %; Platelet Count 142 10^3/cmm (130-400); Red Blood Count 4.36 10^6/uL (4.1-5.3); Red Cell Distribution Width 13.1 % (12.1-15.1); White Blood Count 6.7 10^3/uL (4.0-10.0)
[2022-07-10] MEDS: ipratropium 0.5 mg/2.5 mL Neb INHALATION (03:11)
[2022-07-10] MEDS: albuterol 2.5 mg/3 mL Neb INHALATION (03:11)
[2022-07-10 03:15] LABS: INR 0.97 (0.8-1.2)
[2022-07-10 03:20] LABS: Alanine Aminotransferase 23 U/L (0-41); Albumin Level 3.8 g/dL (3.5-5.2); Alkaline Phosphatase 101 U/L (40-130); Anion Gap 13.5 (5-19); Aspartate Amino Transferase 32 U/L (0-40); Blood Urea Nitrogen 22 mg/dL (8-23); Calcium 9.1 mg/dL (8.5-10.5); Carbon Dioxide 31 mmol/L (22-29); Chloride 100 mmol/L (98-107); Globulin 2.9 g/dL (1.3-4.6); Glucose 199 mg/dL (65-115); Osmolality Calculated 299 mOsm/kg (285-295); Potassium 4.5 mmol/L (3.5-5.1); Sodium 140 mmol/L (136-145); Total Bilirubin 0.2 mg/dL (0.15-1.2); Total Protein 6.7 g/dL (6.6-8.7)
[2022-07-10] MEDS: FUROsemide 10 mg/mL SDV 10mL 60 MG IVP (03:20)
[2022-07-10 03:30] LABS: SARS Covid-2 Antigen negative (Negative)
[2022-07-10 03:55] LABS: NT Pro B Type Natriuretic Pept 1423 pg/mL (0-450)
== END 2022-07-10 04:35 | disposition home or self-care (01) ==
PROVIDERS: Emergency Provider Emergency Medicine; PCP Family Medicine
DX: R06.02 Shortness of breath (principal); I11.0 Hypertensive heart disease with heart failure; I50.9 Heart failure, unspecified; Z20.822 Contact with and (suspected) exposure to COVID-19; Z87.891 Personal history of nicotine dependence; I13.0 Hypertensive heart and chronic kidney disease with heart failure and stage 1 through stage 4 chronic kidney disease, or unspecified chronic kidney disease; N18.9 Chronic kidney disease, unspecified; Z86.73 Personal history of transient ischemic attack (TIA), and cerebral infarction without residual deficits
CPT/HCPCS: 71045; 80053; 83880; 85025; 85610; 87426; 93005; 94640; 96374; 96375; 99285; J1100; J1885; J1940; J7613; J7644

== ENCOUNTER → 2022-07-29 14:05 | Outpatient (BNVA) | payer MEDICARE, SELFPAY | PROVIDERS: PCP Family Medicine; Visit Provider Nurse Practitioner Family | DX: I48.91 Unspecified atrial fibrillation (principal); I25.10 Atherosclerotic heart disease of native coronary artery without angina pectoris; I11.0 Hypertensive heart disease with heart failure; I50.9 Heart failure, unspecified; Z87.891 Personal history of nicotine dependence | CPT/HCPCS: 99214 ==

== ENCOUNTER 2022-08-19 09:28 | Outpatient (CLI) | payer MEDICARE, SELFPAY ==
--- NOTE | 2022-08-19 09:40 | USCV_ITS ---
Dajuan Presley Age: 76 Gender: M : 1945 Exam Date: 08/19/2022 10:09 Ordering Phys: Samia Warner IRINA Technologist: CT Exam Location: [facility] – [place] Indication: sob BP: 140 / 68 HR: 85 Rhythm: Sinus Technical Quality: Adequate MEASUREMENTS (Male / Female) Normal Values 2D ECHO LV Diastolic Diameter PLAX 4.1 cm 4.2 - 5.9 / 3.9 - 5.3 cm LV Systolic Diameter PLAX 3.5 cm IVS Diastolic Thickness 1.4 cm 0.6 - 1.0 / 0.6 - 0.9 cm IVS Systolic Thickness 2.4 cm LVPW Diastolic Thickness 1.4 cm 0.6 - 1.0 / 0.6 - 0.9 cm LVPW Systolic Thickness 2.0 cm LVOT Diameter 2.1 cm LV Ejection Fraction 2D Teich 32.1 % LV Ejection Fraction MOD 2C 33.7 % LV Ejection Fraction 2C AL 31.8 % LA Diameter 4.7 cm Aorta at Sinotubular Diameter 3.1 cm IVC Diameter 1.4 cm M-MODE Aortic Annulus Diameter 4.1 cm LA Ao Ratio MM 1.3 MV E Point Septal Separation 0.9 cm DOPPLER AV Peak Velocity 126.0 cm/s LVOT Peak Velocity 99.0 cm/s AV Area Cont Eq vti 3.6 cm squared AV Area Cont Eq pk 2.7 cm squared MV Peak Velocity 124.0 cm/s MV Area PHT 4.6 cm squared Mitral E to A Ratio 1.3 MV E' Velocity 52.5 cm/s Mitral E to MV E' Ratio 7.3 Mitral E to LV E' Lateral Ratio 5.6 Mitral E to LV E' Septal Ratio 10.6 TV Peak E Velocity 71.0 cm/s Right Atrial Pressure 3.0 mmHg FINDINGS Left Ventricle Left ventricle is normal in size. LV systolic function is normal with EF of 50 to 55%. No significant regional wall motion abnormalities are seen. Right Ventricle Normal in size and function Right Atrium Normal in size Left Atrium Normal in size Mitral Valve Mild mitral annular calcification. Aortic Valve Aortic valve is thickened and calcified. No significant stenosis or regurgitation seen. Tricuspid Valve Mild tricuspid regurgitation. Pulmonic Valve Not well visualized Pericardium Normal Aorta Normal in size IVC Appears to be normal CONCLUSIONS LV systolic function is normal with EF 50 to 55%. Mild tricuspid regurgitation. Compared to prior echocardiogram from 2020 no significant changes are seen Derian Garcia MD (Electronically Signed) Final Date: 23 August 2022 16:11 S
== END 2022-08-19 09:29 | disposition home or self-care (01) ==
PROVIDERS: PCP Family Medicine; Visit Provider Nurse Practitioner Family
DX: I50.9 Heart failure, unspecified (principal); I48.91 Unspecified atrial fibrillation; I10 Essential (primary) hypertension; I07.1 Rheumatic tricuspid insufficiency
CPT/HCPCS: 93306

== ENCOUNTER → 2022-09-23 12:52 | Outpatient (BNVA) | payer MEDICARE, SELFPAY | PROVIDERS: PCP Family Medicine; Visit Provider Nurse Practitioner Family | DX: I13.0 Hypertensive heart and chronic kidney disease with heart failure and stage 1 through stage 4 chronic kidney disease, or unspecified chronic kidney disease (principal); N18.9 Chronic kidney disease, unspecified; I50.9 Heart failure, unspecified; Z87.891 Personal history of nicotine dependence; Z86.73 Personal history of transient ischemic attack (TIA), and cerebral infarction without residual deficits | CPT/HCPCS: 36415; 80048; 83880; 99214 ==

== ENCOUNTER → 2022-11-11 10:57 | Outpatient (BNVA) | payer MEDICARE, SELFPAY | PROVIDERS: PCP Family Medicine; Visit Provider Nurse Practitioner Family | DX: Z96.612 Presence of left artificial shoulder joint (principal) | CPT/HCPCS: 73030; 99213 ==

== ENCOUNTER → 2022-11-26 14:32 | Outpatient (BNVA) | payer MEDICARE, SELFPAY | PROVIDERS: PCP Family Medicine; Visit Provider Internal Medicine Cardiovascular Disease | DX: I13.0 Hypertensive heart and chronic kidney disease with heart failure and stage 1 through stage 4 chronic kidney disease, or unspecified chronic kidney disease (principal); N18.9 Chronic kidney disease, unspecified; Z87.891 Personal history of nicotine dependence; I50.9 Heart failure, unspecified; I48.91 Unspecified atrial fibrillation; I25.10 Atherosclerotic heart disease of native coronary artery without angina pectoris | CPT/HCPCS: 99214 ==

== ENCOUNTER 2022-12-01 09:45 | Emergency (ER) | payer MEDICARE, SELFPAY ==
[2022-12-01 09:48] VITALS: BP 176/102; PULSE 83; RESP 18; TEMP 36.8; O2SAT 96; BMI 42.2
[2022-12-01 10:22] VITALS: BP 156/98; PULSE 73; O2SAT 95
--- NOTE | 2022-12-01 10:23 | ED_ITS ---
HPI - Headache General: Chief Complaint: Headache Stated Complaint: migraine Time Seen by Provider: 12/01/22 10:05 Source: patient Mode of arrival: ambulatory Limitations: no limitations History of Present Illness: Patient is a 77-year-old male who presents to ED today with a complaint of a headache. 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 States since that time he has had chronic headaches that seem to slowly be progressively worsening. Patient has seen multiple neurologists including Dr. Key as well as currently seeing a neurologist in [place] (cannot remember name) they seem unsatisfied with their care stating that his headaches cannot seem to be controlled. Significant other is concerned regarding the amount of medication patient is taking. States he is on several different medications for the headache none of which seem to be working. Headache today seems similar to previous headaches only worse in severity. He has chronic hypertension. Comes with BP log. Looks like normal BP for patient is around 150-160/90-100. MD elicited complaint: headache Pertinent past history: hypertension Onset (ago): year(s) Severity: severe Exacerbating factors: none Relieving factors: nothing Associated symptoms: Deny chest pain, confusion, fever(s), malaise, nausea, rash or vomiting Treatments prior to arrival: prescription analgesic and migraine medication Review of Systems Const: Denies: fever(s), chills, body aches, fatigue or malaise Eyes: Denies: change in vision, blurry vision, photophobia, floaters or seeing flashes Card: Denies: chest pain or palpitations Resp: Denies: dyspnea GI: Denies: nausea or vomiting Musc: Denies: neck pain, back pain, extremity pain or joint pain Skin/Breast: Denies: rash Neuro: Reports: headache(s); Denies: numbness in extremities, weakness in extremities, sensory changes, lack of coordination, difficulty walking, frequent falls, dizziness, vertigo, confusion, behavioral changes, Slurred speech present, difficulty communicating thoughts or seizure-like activity PFS ED PFSH: Medical History Arthritis ASHD (arteriosclerotic heart disease) BPH (benign prostatic hyperplasia) BPH (benign prostatic hyperplasia) CHF (congestive heart failure) Chronic kidney disease Chronic migraine History of TIA (transient ischemic attack) HTN (hypertension) Lower urinary tract symptoms (LUTS) Subdural hematoma Surgical History H/O craniotomy Previous back surgery S/P carpal tunnel release S/P knee replacement S/P shoulder surgery Family History Mother , AT AGE 76 BRAIN ANEURYSM No problems noted. Father , AT AGE 84 PRESS SHOP SUPERVISOR,HEART DISEASE Cancer PROSTATE CAD (coronary artery disease) Social History Smoking and tobacco status: former smoker Alcohol intake: unknown Substance/Drug Use: unknown Adopted: No Caregiver/support person: No Lives independently: Yes Marital status: / Current occupational status: retired Current gender identity: Male Physical Exam Const: COMMON NORMALS: no acute distress, patient oriented x3, no limitations and alert GENERAL APPEARANCE: cooperative NUTRITIONAL APPEARANCE: obese morbidly obese ORIENTATION/CONSCIOUSNESS: Yes awake, Yes oriented to person, Yes oriented to place and Yes oriented to time HENMT: COMMON NORMALS: normocephalic and atraumatic HEAD & SCALP: normal to inspection, normocephalic and atraumatic FACE & SINUS: normal facial exam Eye: COMMON NORMALS: EOMs intact bilaterally GENERAL EYE: appearance normal, both eyes and all related structures and normal light reflex DIRECT OPHTHALMOSCOPY: Yes normal light reflex Neck/C-Spine: COMMON NORMALS: full ROM, no lymphadenopathy, no meningeal signs and no JVD Resp: COMMON NORMALS: normal respiratory effort Cardio: COMMON NORMALS: no JVD Extremity: GENERAL: Yes normal exam except as noted Neuro: MARYA COMA SCALE: document GCS findings Jenera coma scale eye opening: Spontaneous Jenera coma scale verbal response: Orientated Marya coma scale motor response: Obey commands Marya coma scale total score: 15 COMMON NORMALS: patient oriented x3, CN's II-XII intact bilaterally, moves all extremities, no focal motor deficits and no sensory deficits noted SENSORIUM/ORIENTATION: Yes alert, Yes oriented to person, Yes oriented to place and Yes oriented to time MENINGEAL SIGNS: Yes no meningeal signs Skin: COMMON NORMALS: no rashes or lesions noted GENERAL SKIN EXAM: no rashes or lesions noted Course Vital Signs: Vital signs: Vital Signs Temperature 98.2 F 12/01/22 09:48 Pulse Rate 78 12/01/22 14:34 Respiratory Rate 21 H 12/01/22 11:56 Blood Pressure 160/120 12/01/22 14:34 Pulse Oximetry 94 12/01/22 14:34 Oxygen Delivery Me thod Room Air 12/01/22 13:25 MDM - Headache Medical Decision Making Patient with chronic intractable headache following a craniotomy procedure in 2020. CT scan today showing: IMPRESSION: 1.? No evidence intracranial hemorrhage or mass effect. 2.? Prior postoperative changes LEFT frontal parietal craniotomy with underlying postoperative changes. Associated dural thickening with slight extra-axial fluid is unchanged. 3.? Moderate small vessel changes with moderate parenchymal volume loss. 4.? Intracranial vascular calcifications. 5.? No significant changes since 02/09/2022 Patient seems unhappy with his neurologist that he is seeing and would like a referral to see Dr. Maddox. This will be placed. Patient's significant other also concerned about the amount of medication he is taking. Recommend primary care do a thorough medication reconciliation and see if any of these medications can be discontinued. All radiology interpretation(s) finalized by discharge Discharge Plan Discharge Patient Disposition: Home Clinical Impression: HTN (hypertension) Qualifiers: Hypertension type: unspecified Qualified Code(s): I10 - Essential (primary) hypertension Headache Qualifiers: Headache type: unspecified Headache chronicity pattern: chronic headache Intractability: intractable Qualified Code(s): R51.9 - Headache, unspecified Condition: Stable Prescriptions: No Action albuterol sulfate [ProAir HFA] 90 mcg/actuation HFA aerosol inhaler 2 puff INHALATION Q6H PRN (Reason: Allergy Symptoms) tamsulosin 0.4 mg capsule 0.4 mg PO DAILY potassium chloride 10 mEq capsule, extended release 30 meq PO BID zolpidem 6.25 mg tablet,ext release multiphase 6.25 mg PO BEDTIME budesonide-formoterol 160-4.5 mcg/actuation HFA aerosol inhaler 2 puff inhalation BID celecoxib [Celebrex] 200 mg capsule 200 mg PO BID rizatriptan 10 mg tablet See Rx Instructions PO .COMPLEX Rx Instructions: take 1 tab at onset of headache; if no relief may repeat 1 tab after at least 2 hrs; max = 3 tabs/24 hr PO Depakote 250 mg tablet,delayed release (DR/EC) 500 mg PO Q12H PRN (Reason: headache) metoprolol tartrate 25 mg tablet 50 mg PO BID amlodipine 5 mg tablet 5 mg PO DAILY Qty: 30 6RF furosemide 20 mg tablet See Rx Instructions PO DAILY Qty: 100 1RF Rx Instructions: Alternate 20mg with 40mg every other day orally daily promethazine 25 mg tablet 25 mg PO TID PRN (Reason: Nausea) lisinopril 40 mg tablet 40 mg PO DAILY nitroglycerin [Nitrostat] 0.4 mg tablet, sublingual 0.4 mg sublingual Q5M PRN (Reason: chest pain) Qty: 25 3RF Rx Instructions: do not exceed 3 doses per episode hydralazine 100 mg tablet 100 mg PO TID Qty: 270 2RF oxycodone 15 mg Tablet 15 mg PO TID PRN (Reason: Pain) Hold Instructions: Resume on 11/26/21. magnesium 250 mg Tablet 250 mg PO DAILY kkbxcdtmcu-vvpoxafpyenou-mhgv 50-325-40 mg Tablet 1 tab PO Q4H PRN (Reason: Headache) omeprazole 20 mg capsule,delayed release(DR/EC) 20 mg PO DAILY Discharge Orders: Discharge ED (Routine); Ordered 12/01/22 Ordered By: Rukhsana Amaya Referrals: Igor Aguilera [Primary Care Provider] - Activity Restrictions/Additional Instructions: As we discussed I will place a referral to see Dr. Maddox/neurology for further evaluation and possible treatment options in regards to your chronic headache. Coding Level of Care Code ED Journeyman Tool And Die Maker for Zahraa Julio
[2022-12-01] MEDS: ketorolac 30 mg/mL INJ IM (10:57)
[2022-12-01 11:00] VITALS: BP 152/106; PULSE 77; O2SAT 93
[2022-12-01] MEDS: promethazine 25 mg/mL SDV 1 mL 50 MG IM (11:26)
--- NOTE | 2022-12-01 11:48 | CT_ITS ---
WS: [id number] CT HEAD TECHNIQUE: Noncontrast CT of the head obtained from the skullbase to the vertex. CLINICAL INFORMATION: headache, previous brain surgery COMPARISON: CT 02/09/2022 DLP: 1152.[address] scans at [facility] use at least one of these dose optimization techniques: automated e xposure control; mA and/or kV adjustment per patient size (includes targeted exams where dose is matc hed to clinical indication); or iterative reconstruction. FINDINGS: Prior postoperative changes LEFT frontoparietal craniotomy with a tiny amount of extra-axial dural th ickening and fluid unchanged from the prior examinations. No evidence of intracranial hemorrhage or m ass effect. Moderate small vessel changes. Moderate parenchymal volume loss. Intracranial vascular ca lcifications. Paranasal sinuses are well aerated. Mastoid air cells are well aerated. Normal posterio r nasopharynx. No remarkable changes since 02/09/2022. IMPRESSION: 1. No evidence intracranial hemorrhage or mass effect. 2. Prior postoperative changes LEFT frontal parietal craniotomy with underlying postoperative change s. Associated dural thickening with slight extra-axial fluid is unchanged. 3. Moderate small vessel changes with moderate parenchymal volume loss. 4. Intracranial vascular calcifications. 5. No significant changes since 02/09/2022
[2022-12-01 11:56] VITALS: RESP 21
[2022-12-01] MEDS: HYDROmorphone 1 mg/mL INJ 1 mL IM (11:56)
[2022-12-01] MEDS: SUMAtriptan 6 mg/0.5 mL SDV SUBCUT (13:23)
[2022-12-01 13:25] VITALS: BP 163/116; PULSE 80; O2SAT 91
[2022-12-01 14:34] VITALS: BP 160/120; PULSE 78; O2SAT 94
== END 2022-12-01 14:36 | disposition home or self-care (01) ==
PROVIDERS: Emergency Provider Physician Assistant; PCP Family Medicine
DX: R51.9 Headache, unspecified (principal); Z87.891 Personal history of nicotine dependence; I13.0 Hypertensive heart and chronic kidney disease with heart failure and stage 1 through stage 4 chronic kidney disease, or unspecified chronic kidney disease; N18.9 Chronic kidney disease, unspecified; I50.9 Heart failure, unspecified; Z86.73 Personal history of transient ischemic attack (TIA), and cerebral infarction without residual deficits
CPT/HCPCS: 70450; 96372; 99284; J1170; J1885; J2550; J3030

== ENCOUNTER → 2022-12-17 13:33 | Outpatient (BNVA) | payer MEDICARE, SELFPAY | PROVIDERS: PCP Family Medicine; Visit Provider Nurse Practitioner Family | DX: I48.91 Unspecified atrial fibrillation (principal); I13.0 Hypertensive heart and chronic kidney disease with heart failure and stage 1 through stage 4 chronic kidney disease, or unspecified chronic kidney disease; N18.9 Chronic kidney disease, unspecified; I50.9 Heart failure, unspecified; Z87.891 Personal history of nicotine dependence | CPT/HCPCS: 99214 ==

== ENCOUNTER 2023-02-01 13:09 | Emergency (ER) | payer MEDICARE, SELFPAY ==
[2023-02-01] VITALS (8 sets, daily range): BP systolic 122–145; BP diastolic 80–95; PULSE 68–80; RESP 17–20; TEMP 36.6; O2SAT 93–98; BMI 41.5
--- NOTE | 2023-02-01 13:25 | XRR_ITS ---
PROCEDURE INFORMATION: Exam: XR Chest Exam date and time: 02/01/2023 1:51 PM Age: 77 years old Clinical indication: Cough; Additional info: Dyspnea/cough TECHNIQUE: Imaging protocol: Radiologic exam of the chest. Views: 1 view. COMPARISON: CR XR chest 1V portable [id number] 07/10/2022 3:05 AM FINDINGS: Lungs: Minimal left basilar atelectasis. No consolidation. Pleural spaces: No pleural effusion or pneumothorax. Heart/Mediastinum: Upper limits of normal cardiac size. Vasculature: Arteriosclerosis of the thoracic aorta. Bones/joints: Partially visualized left shoulder prosthesis. XR/XR chest 1V portable [id number] IMPRESSION: Minimal left basilar atelectasis. No acute findings otherwise.
--- NOTE | 2023-02-01 13:26 | ECG_ITS ---
[facility] Test Date: 2023-02-01 Pat Name: Dajuan Presley Department: Room: Gender: Male Shipper Receiver: : 1945 Requested By: Sami Solitario Order Number: [id number] Stevie MD: Bonita Montoya M.D. Measurements Intervals [place] Rate: 73 P: 0 AK: 0 QRS: -19 QRSD: 113 T: -12 QT: 389 QTc: 430 Interpretive Statements ATRIAL FIBRILLATION LOW QRS VOLTAGE IN PRECORDIAL LEADS [QRS DEFLECTION < 1.0 mV IN CHEST LEADS] INCOMPLETE RIGHT BUNDLE BRANCH BLOCK [90+ ms QRS DURATION, TERMINAL R IN V1/V2, 40+ ms S IN I/aVL/V4/V5/V6] MODERATE ST DEPRESSION [0.05+ mV ST DEPRESSION] Compared to ECG 07/10/2022 02:46:51 Low QRS voltage now present ST (T wave) deviation now present Sinus rhythm no longer present Electronically Signed On 02-01-2023 21:27:25 SEED POTATO ARRANGER by Bonita Montoya M.D. [id number]
--- NOTE | 2023-02-01 13:28 | PC.NURSE ---
per EMS pt refused nitro and ASA
--- NOTE | 2023-02-01 13:29 | ECG_ITS ---
[facility] Test Date: 2023-02-01 Pat Name: Dajuan Presley Department: Room: Gender: Male Paediatrician: : 1945 Requested By: Sami Solitario Order Number: [id number] Stevie MD: Derian Garcia M.D. Measurements Intervals [place] Rate: 75 P: 0 MA: 0 QRS: -28 QRSD: 113 T: -12 QT: 390 QTc: 438 Interpretive Statements INDETERMINATE RHYTHM SECONDARY TO BASELINE ARTIFACT BORDERLINE LEFT AXIS DEVIATION [QRS AXIS < -20] LOW QRS VOLTAGE IN PRECORDIAL LEADS [QRS DEFLECTION < 1.0 mV IN CHEST LEADS] INCOMPLETE RIGHT BUNDLE BRANCH BLOCK [90+ ms QRS DURATION, TERMINAL R IN V1/V2, 40+ ms S IN I/aVL/V4/V5/V6] MODERATE ST DEPRESSION [0.05+ mV ST DEPRESSION] Compared to ECG 07/10/2022 02:46:51 Low QRS voltage now present ST (T wave) deviation now present Electronically Signed On 02-02-2023 8:20:25 SEWER PIPE LAYER HELPER by Derian Garcia M.D. [id number]
--- NOTE | 2023-02-01 13:30 | ED_ITS ---
HPI - Chest Pain 2 General: Chief Complaint: Chest Pain Stated Complaint: CHEST PAIN Time Seen by Provider: 02/01/23 13:25 Source: patient Mode of arrival: EMS History of Present Illness: 77-year-old male presents to the emergen cy room with complaint of chest discomfort and shortness of breath began last night. Describes the pain as 5 of 10. He still complaining some mild chest discomfort is also noticed increasing swelling in his legs. No fevers sweats or chills. He was initially brought in on 2 L by nasal cannula to give him for comfort but his sats are maintaining in the 90s on room air. MD complaint: chest pain Onset (ago): day(s) (1) Timing of current episode: episodic Onset: during rest Pain location: left chest Relieving factors: nothing Exacerbating factors: nothing Associated symptoms: Deny abdominal pain, diaphoresis, dyspnea, fever(s), leg edema, nausea, palpitations, sense of impending doom, syncope or vomiting Review of Systems 2 Const: Denies: fever(s), chills or diaphoresis Card: Denies: chest pain, palpitations or syncope Resp: Denies: dyspnea GI: Denies: abdominal pain, nausea or vomiting : Denies: dysuria, urinary frequency or urinary urgency Musc: Denies: neck pain or back pain Skin/Breast: Denies: rash PFSH ED 2 PFSH: Medical History Subdural hematoma BPH (benign prostatic hyperplasia) Lower urinary tract symptoms (LUTS) Arthritis Chronic migraine Chronic kidney disease BPH (benign prostatic hyperplasia) History of TIA (transient ischemic attack) ASHD (arteriosclerotic heart disease) CHF (congestive heart failure) HTN (hypertension) Surgical History H/O craniotomy Previous back surgery S/P knee replacement S/P shoulder surgery S/P carpal tunnel release Family History Mother , AT AGE 76 BRAIN ANEURYSM No problems noted. Father , AT AGE 84 TRUCK DRIVER RUBBISH COLLECTOR,HEART DISEASE Cancer PROSTATE CAD (coronary artery disease) Social History Smoking and tobacco/nicotine status: former use of tobacco/nicotine Alcohol intake: unknown Substance/Drug Use: unknown Adopted: No Caregiver/support person: No Lives independently: Yes Marital status: / Current occupational status: retired Current gender identity: Male Physical Exam 2 Const: GENERAL APPEARANCE: cooperative and comfortable O RIENTATION/CONSCIOUSNESS: Yes awake, Yes oriented to person, Yes oriented to place and Yes oriented to time HENMT: COMMON NORMALS: normocephalic, atraumatic and hearing grossly normal bilaterally HEAD & SCALP: normocephalic and atraumatic Resp: COMMON NORMALS: normal respiratory effort, No retractions, No use of accessory muscles and clear to auscultation bilaterally AUSCULTATION: clear to auscultation bilaterally Cardio: COMMON NORMALS: regular rate, regular rhythm and No murmurs present (Cardio) RATE: regular rate RHYTHM: regular rhythm GI: COMMON NORMALS: Soft to palpation and No hepatosplenomegaly present A USCULTATION: Yes normoactive bowel sounds PALPATION: Yes Soft to palpation, No Tenderness to palpation present (GI), No Guarding due to palpation present (GI) and Yes No hepatosplenomegaly present Extremity: COMMON NORMALS: normal to inspection, capillary refill normal, no clubbing, cyanosis or edema, no calf tenderness and no pedal edema Neuro: SENSORIUM/ORIENTATION: Yes oriented to person, Yes oriented to place and Yes oriented to time Skin: COMMON NORMALS: no rashes or lesions noted GENERAL SKIN EXAM: no rashes or lesions noted Course 2 Vital Signs: Vital signs: Vital Signs Temperature 97.9 F 02/01/23 13:24 Pulse Rate 75 02/01/23 16:27 Respiratory Rate 20 H 02/01/23 14:52 Blood Pressure 131/81 02/01/23 16:27 Pulse Oximetry 98 02/01/23 16:27 Oxygen Delivery Me thod Room Air 02/01/23 13:55 MDM - Chest Pain Medical Decision Making EKG did not show any acute changes troponins trending normal. At isosorbide mononitrate and to follow-up with cardiology will set up outpatient cardiac stress testing Medical Records I reviewed the patient's medical records. Lab Data I reviewed the patient's lab results. 02/01/23 13:39 02/01/23 13:39 Radiology Impressions Chest X-Ray 02/01/23 13:25 IMPRESSION: Minimal left basilar atelectasis. No acute findings otherwise. Laboratory Results WBC 7.45 10^3/uL (3.29-11.43) 02/01/23 13:39 RBC 4.59 10^6/uL (3.85-5.65) 02/01/23 13:39 Hgb 15.00 g/dL (11.27-16.99) 02/01/23 13:39 Hct 47.0 % (37-53) 02/01/23 13:39 MCV 102.4 fl (82-101) H 02/01/23 13:39 MCH 32.7 pg (27-33) 02/01/23 13:39 MCHC 31.9 g/dL (30-55) 02/01/23 13:39 RDW 13.5 % (12.1-15.1) 02/01/23 13:39 Plt Count 113 10^3/cmm (157-399) L 02/01/23 13:39 MPV 11.0 fL (7.4-10.4) H 02/01/23 13:39 Neut % (Auto) 57.5 % 02/01/23 13:39 Lymph % (Auto) 29.1 % 02/01/23 13:39 Mcdonald % (Auto) 10.3 % 02/01/23 13:39 Eos % (Auto) 2.3 % 02/01/23 13:39 Baso % (Auto) 0.4 % 02/01/23 13:39 Neut # (Auto) 4.28 10^3/uL (1.8-7.7) 02/01/23 13:39 Lymph # (Auto) 2.2 10^3/uL (0.8-4.8) 02/01/23 13:39 Mcdonald # (Auto) 0.8 10^3/uL (0.2-0.9) 02/01/23 13:39 Eos # (Auto) 0.2 10^3/uL (0.0-0.8) 02/01/23 13:39 Baso # (Auto) 0.0 10^3/uL (0.0-0.1) 02/01/23 13:39 Nucleated RBC % (auto) 0 % 02/01/23 13:39 Nucleated RBCs # 0.0 /100WBC 02/01/23 13:39 Specimen Type Arterial 02/01/23 13:45 Sample Site Art 02/01/23 13:45 ABG pH 7.42 (7.35-7.45) 02/01/23 13:45 ABG pCO2 52.1 mmHg (35-45) H 02/01/23 13:45 ABG pO2 66.7 mmHg (80.0-100.0) L 02/01/23 13:45 ABG HCO3 33.8 mmol/L (22-26) H 02/01/23 13:45 ABG O2 Saturation 95.8 02/01/23 13:45 ABG Base Excess 7.6 mmol/L (-2.0-2.0) H 02/01/23 13:45 Dain Test Pos 02/01/23 13:45 A-a O2 Gradient 2.4 mmHg (5-10) L 02/01/23 13:45 Hematocrit 44.7 % (42-52) 02/01/23 13:45 Hgb O2 Saturation 93.6 % (95-100) L 02/01/23 13:45 Carboxyhemoglobin 1.9 %THgb (0.4-20.1) 02/01/23 13:45 Methemoglobin 0.3 % (0.4-1.5) L 02/01/23 13:45 Total Hemoglobin 14.6 g/dL (14-18) 02/01/23 13:45 Sodium 141.0 mmol/L (131-143) 02/01/23 13:45 Potassium 4.3 mmol/L (3.5-5.0) 02/01/23 13:45 Glucose 93.0 mg/dL (70-115) 02/01/23 13:45 Ionized Calcium 1.2 mmol/L (1.1-1.4) 02/01/23 13:45 O2 Delivery Device Ra 02/01/23 13:45 Upper Shaper ID Glc 02/01/23 13:45 Sodium 139 mmol/L (136-145) 02/01/23 13:39 Potassium 4.8 mmol/L (3.5-5.1) 02/01/23 13:39 Chloride 100 mmol/L (98-107) 02/01/23 13:39 Carbon Dioxide 29 mmol/L (22-29) 02/01/23 13:39 Anion Gap 14.8 (5-19) 02/01/23 13:39 BUN 18 mg/dL (8-23) 02/01/23 13:39 Creatinine 1.3 mg/dL (0.7-1.2) H 02/01/23 13:39 GFR Calculation Not Reportable 02/01/23 13:39 Glucose 92 mg/dL (65-115) 02/01/23 13:39 Calculated Osmolality 290 mOsm/kg (285-295) 02/01/23 13:39 Calcium 9.4 mg/dL (8.5-10.5) 02/01/23 13:39 Total Bilirubin 0.5 mg/dL (0.15-1.2) 02/01/23 13:39 AST 30 U/L (0-40) 02/01/23 13:39 ALT 15 U/L (0-41) 02/01/23 13:39 Alkaline Phosphatase 95 U/L (40-130) 02/01/23 13:39 Troponin T Baseline 85 ng/L (0-15) H 02/01/23 13:39 Troponin T 120 Minute 84.89 ng/L (0-15) H 02/01/23 14:31 Delta Troponin T -0.11 ABS# (0-10) L 02/01/23 14:31 NT-Pro-B Natriuret Pep 1924 pg/mL (0-450) H 02/01/23 13:39 Total Protein 6.7 g/dL (6.6-8.7) 02/01/23 13:39 Albumin 4.1 g/dL (3.5-5.2) 02/01/23 13:39 Globulin 2.6 g/dL (1.3-4.6) 02/01/23 13:39 Urine Color Straw (Yellow) 02/01/23 13:28 Urine Appearance Clear (CLEAR) 02/01/23 13:28 Urine pH 5 (5-7) 02/01/23 13:28 Ur Specific Parsons 1.010 (1.005-1.030) 02/01/23 13:28 Urine Protein Neg (Negative) 02/01/23 13:28 Urine Glucose (UA) Norm (Normal) 02/01/23 13:28 Urine Ketones Negative (Negative) 02/01/23 13:28 Urine Blood Neg (Negative) 02/01/23 13:28 Urine Nitrate Negative (Negative) 02/01/23 13:28 Urine Bilirubin Neg (Negative) 02/01/23 13:28 Urine Urobilinogen Norm mg/dL (Negative) 02/01/23 13:28 Ur Leukocyte Esterase Negative (Negative) 02/01/23 13:28 All radiology interpretation(s) finalized by discharge Discharge Plan Discharge Patient Disposition: Home Clinical Impression: Atypical chest pain CHF (congestive heart failure) Qualifiers: Heart failure type: diastolic Heart failure chronicity: acute on chronic Q ualified Code(s): I50.33 - Acute on chronic diastolic (congestive) heart failure Condition: Stable Prescriptions: New isosorbide mononitrate 30 mg tablet extended release 24 hr 30 mg PO DAILY Qty: 30 0RF No Action albuterol sulfate [ProAir HFA] 90 mcg/actuation HFA aerosol inhaler 2 puff INHALATION Q6H PRN (Reason: Shortness Of Breath Or Wheezing) tamsulosin 0.4 mg capsule 0.4 mg PO DAILY potassium chloride 10 mEq capsule, extended release 30 meq PO BID zolpidem 6.25 mg tablet,ext release multiphase 6.25 mg PO BEDTIME budesonide-formoterol 160-4.5 mcg/actuation HFA aerosol inhaler 2 puff inhalation BID celecoxib [Celebrex] 200 mg capsule 200 mg PO BID rizatriptan 10 mg tablet See Rx Instructions PO .COMPLEX Rx Instructions: take 1 tab at onset of headache; if no relief may repeat 1 tab after at least 2 hrs; max = 3 tabs/24 hr PO amlodipine 5 mg tablet 5 mg PO DAILY Qty: 30 6RF furosemide 20 mg tablet 40 mg PO DAILY Qty: 100 1RF lisinopril 40 mg tablet 40 mg PO DAILY nitroglycerin [Nitrostat] 0.4 mg tablet, sublingual 0.4 mg sublingual Q5M PRN (Reason: chest pain) Qty: 25 3RF Rx Instructions: do not exceed 3 doses per episode hydralazine 100 mg tablet 100 mg PO TID Qty: 270 2RF metoprolol tartrate 75 mg tablet 75 mg PO BID Qty: 90 3RF oxycodone 15 mg Tablet 15 mg PO Q6H PRN (Reason: Pain) Hold Instructions: Resume on 11/26/21. magnesium 250 mg Tablet 500 mg PO DAILY lovtdjxhbd-gpuccgdzddpod-uvzt 50-325-40 mg Tablet 1 tab PO Q6H PRN (Reason: Headache) omeprazole 20 mg capsule,delayed release(DR/EC) 20 mg PO DAILY ketoconazole 2 % shampoo See Rx Instructions .ROUTE .COMPLEX Rx Instructions: topically as directed 2 times a week divalproex 500 mg tablet,delayed release (DR/EC) 500 mg PO BID bupropion HCl 150 mg tablet extended release 24 hr 150 mg PO DAILY Vitamin D3 25 mcg (1,000 unit) Tablet 25 mcg PO DAILY PreserVision AREDS-2 250-90-40-1 mg Capsule 1 tab PO BID Discharge Orders: Discharge ED (Routine); Ordered 02/01/23 Ordered By: Sami Larose Referrals: Igor Aguilera [Primary Care Provider] - Discharge Diet: Usual diet Discharge Activity: Limit activity as instructed Patient Instructions: Opioid Safety, Pain Management Activity Restrictions/Additional Instructions: Thank you for choosing [facility] for your healthcare needs today. Please realize this is an emergency room and that we are providing you with a medical screening exam and this may not be complete and all inclusive of all the testing and or work up that you may need to determine your ailment or severity of your illness. It is very important that you follow up as instructed or that you return to the Emergency Department should you have concerns or if your condition changes or worsens in any way. You are seen today for episode of chest pain. Cardiac enzymes and EKG were normal. Recommend you start on isosorbide mononitrate 30mg once daily. case managment will contact you and make arrangmeent for an outpatietn echocardiogram and cardiac stress test. Coding Level of Care Code ED Project Engineering Director for Zahraa Julio
[2023-02-01] MEDS: ipratropium-albuterol 3 mL Neb INHALATION (13:36)
[2023-02-01] MEDS: dexamethasone 10 mg/mL INJ IM (13:41)
[2023-02-01 13:47] LABS: Basophils % 0.4 %; Eosinophils # 0.2 10^3/uL (0.0-0.8); Eosinophils % 2.3 %; Lymphocytes # 2.2 10^3/uL (0.8-4.8); Lymphocytes % 29.1 %; Mean Corpuscular HGB Conc 31.9 g/dL (30-55); Mean Corpuscular Hemoglobin 32.7 pg (27-33); Mean Corpuscular Volume 102.4 fl (82-101); Monocytes # 0.8 10^3/uL (0.2-0.9); Monocytes % 10.3 %; Neutrophils # 4.28 10^3/uL (1.8-7.7); Neutrophils % 57.5 %; Nucleated Red Blood Cells % 0 %; Platelet Count 113 10^3/cmm (157-399); Red Blood Count 4.59 10^6/uL (3.85-5.65); Red Cell Distribution Width 13.5 % (12.1-15.1); White Blood Count 7.45 10^3/uL (3.29-11.43)
[2023-02-01 13:52] LABS: Add Urine Microscopic? NO; Charge for UA Resulting for Rev
[2023-02-01 14:01] LABS: ABG PCO2 52.1 mmHg (35-45); ABG PH Result 7.42 (7.35-7.45); Alveolar-Arterial Oxygen Gradi 2.4 mmHg (5-10); Arterial Blood Gas Hematocrit 44.7 % (42-52); Base Excess ABG 7.6 mmol/L (-2.0-2.0); Blood Gas Allen Test Pos; Blood Gas Sample Type Arterial; Carboxyhemoglobin 1.9 %THgb (0.4-20.1); HCO3 ABG 33.8 mmol/L (22-26); HGB O2 Sat 93.6 % (95-100); Ionized Calcium Level - ABG 1.2 mmol/L (1.1-1.4); Methemoglobin 0.3 % (0.4-1.5); Oxygen Saturation ABG 95.8; PO2 ABG 66.7 mmHg (80.0-100.0); Potassium Level - ABG 4.3 mmol/L (3.5-5.0); Total Hemoglobin 14.6 g/dL (14-18)
[2023-02-01 14:02] LABS: Blood Gas Operator Identificat GLC; Oxygen Device RA
[2023-02-01 14:07] LABS: Bilirubin Urine Neg (Negative); Blood Urine Neg (Negative); Glucose Urine UA Norm (Normal); Ketones Urine Negative (Negative); Leukocyte Esterase Urine Negative (Negative); Nitrate Urine Negative (Negative); Protein Urine Neg (Negative); Urine Appearance Clear (CLEAR); Urine Color Straw (Yellow); Urobilinogen Urine Norm (Negative); pH Urine 5 (5-7)
[2023-02-01 14:09] LABS: Troponin(5th) Baseline 85 ng/L (0-15)
[2023-02-01 14:30] LABS: Alanine Aminotransferase 15 U/L (0-41); Albumin Level 4.1 g/dL (3.5-5.2); Alkaline Phosphatase 95 U/L (40-130); Aspartate Amino Transferase 30 U/L (0-40); Blood Urea Nitrogen 18 mg/dL (8-23); Calcium 9.4 mg/dL (8.5-10.5); Carbon Dioxide 29 mmol/L (22-29); Chloride 100 mmol/L (98-107); Globulin 2.6 g/dL (1.3-4.6); Glucose 92 mg/dL (65-115); NT Pro B Type Natriuretic Pept 1924 pg/mL (0-450); Osmolality Calculated 290 mOsm/kg (285-295); Sodium 139 mmol/L (136-145); Total Bilirubin 0.5 mg/dL (0.15-1.2); Total Protein 6.7 g/dL (6.6-8.7)
[2023-02-01 14:38] LABS: Anion Gap 14.8 (5-19); Potassium 4.8 mmol/L (3.5-5.1)
[2023-02-01] MEDS: aspirin 81 mg Chew Tablet 324 MG PO (15:01)
[2023-02-01] MEDS: nitroglycerin 1 gm/inch oint Pkt 0.5 INCH TOPICAL (15:02)
[2023-02-01 15:22] LABS: Troponin 5 2HR 84.89 ng/L (0-15)
[2023-02-01 15:25] LABS: Troponin 5 2HR Delta -0.11 ABS# (0-10)
[2023-02-01] MEDS: acetaminophen 500 mg Tablet 1000 MG PO (16:01)
--- NOTE | 2023-02-01 16:02 | PC.NURSE ---
removed nitropaste patch and cleaned area, per dr villarreal @[phone]
[2023-02-02 16:04] LABS: Blood Gas Sample Site ART
== END 2023-02-01 16:28 | disposition home or self-care (01) ==
PROVIDERS: Emergency Provider Family Medicine; PCP Family Medicine
DX: R07.89 Other chest pain (principal); Z87.891 Personal history of nicotine dependence; I13.0 Hypertensive heart and chronic kidney disease with heart failure and stage 1 through stage 4 chronic kidney disease, or unspecified chronic kidney disease; N18.9 Chronic kidney disease, unspecified; I50.33 Acute on chronic diastolic (congestive) heart failure; Z86.73 Personal history of transient ischemic attack (TIA), and cerebral infarction without residual deficits
CPT/HCPCS: 36415; 36600; 71045; 80051; 80053; 81003; 82330; 82805; 83880; 84484; 85025; 93005; 94640; 96372; 99285; J1100

== ENCOUNTER → 2023-02-05 13:35 | Outpatient (BNVA) | payer MEDICARE, SELFPAY | PROVIDERS: PCP Family Medicine; Visit Provider Nurse Practitioner Family | DX: R07.89 Other chest pain (principal); I13.0 Hypertensive heart and chronic kidney disease with heart failure and stage 1 through stage 4 chronic kidney disease, or unspecified chronic kidney disease; I50.33 Acute on chronic diastolic (congestive) heart failure; N18.9 Chronic kidney disease, unspecified; Z87.891 Personal history of nicotine dependence | CPT/HCPCS: 99214 ==

== ENCOUNTER 2023-02-13 16:37 | Emergency (ER) | payer MEDICARE, SELFPAY ==
[2023-02-13 16:38] VITALS: BP 152/113; PULSE 85; RESP 18; TEMP 36.6; O2SAT 96; BMI 41.8
--- NOTE | 2023-02-13 16:50 | ED_ITS ---
HPI - Headache General: Chief Complaint: Headache Stated Complaint: migraine Time Seen by Provider: 02/13/23 16:39 History of Present Illness: Patient presents to the ER by EMS with complaints of migraine. This migraine started at 1545. This is left-sided migraine this is similar to ones in the past. Patient has tried all his normal medicines at home for migraine that includes butalbital, celecoxib, divalproex, magnesium, oxycodone, rizatriptan, but these did not seem to improve it much. Patient has been to the ER multiple times for this. Last time being a couple months ago. Patient said he is minimally nauseous and has vomited with this headache. Review of Systems General: Reports: 10 or more systems reviewed and unremarkable except in HPI and below PFSH ED PFSH: Medical History Subdural hematoma BPH (benign prostatic hyperplasia) Lower urinary tract symptoms (LUTS) Arthritis Chronic migraine Chronic kidney disease BPH (benign prostatic hyperplasia) History of TIA (transient ischemic attack) ASHD (arteriosclerotic heart disease) CHF (congestive heart failure) HTN (hypertension) Surgical History H/O craniotomy Previous back surgery S/P knee replacement S/P shoulder surgery S/P carpal tunnel release Family History Mother , AT AGE 76 BRAIN ANEURYSM No problems noted. Father , AT AGE 84 RESIDENTIAL SALES,HEART DISEASE Cancer PROSTATE CAD (coronary artery disease) Social History Smoking and tobacco/nicotine status: former use of tobacco/nicotine Alcohol intake: unknown Substance/Drug Use: unknown Adopted: No Caregiver/support person: No Lives independently: Yes Marital status: / Current occupational status: retired Current gender identity: Male Physical Exam Const: COMMON NORMALS: no acute distress, average body habitus, patient oriented x3, no limitations, healthy appearing, alert and well nourished HENMT: COMMON NORMALS: normocephalic, atraumatic, hearing grossly normal bilaterally, external ears normal, Normal external nose present, moist oral mucous membranes and oropharynx normal HEAD & SCALP: normocephalic and atraumatic NOSE: Normal external nose present EXTERNAL EAR: Yes external ears normal Eye: COMMON NORMALS: Equal, round and reactive pupils present, EOMs intact bilaterally, conjunctivae normal and no scleral icterus CONJUNCTIVA: Yes conjunctivae normal PUPIL: Yes Equal, round and reactive pupils present Neck/C-Spine: COMMON NORMALS: full ROM, no lymphadenopathy, supple, no meningeal signs, no JVD and Thyroid normal THYROID: Thyroid normal Chest: COMMONS NORMALS: normal inspection of the chest and normal palpation of entire chest wall Resp: COMMON NORMALS: normal respiratory effort, No retractions, No use of accessory muscles and clear to auscultation bilaterally AUSCULTATION: clear to auscultation bilaterally Cardio: COMMON NORMALS: no JVD, regular rate, regular rhythm, S1 normal heart sound present, S2 normal heart sound present, No gallops present (Cardio), No clicks present (Cardio), No murmurs present (Cardio) and No rub (Cardio) RATE: regular rate RHYTHM: regular rhythm HEART SOUNDS: S1 normal heart sound present and S2 normal heart sound present GI: COMMON NORMALS: Normal to inspection, nondistended, normoactive bowel sounds present, Soft to palpation, non-tender, No hepatosplenomegaly present and no masses PALPATION: Yes Soft to palpation and Yes No hepatosplenomegaly present Neuro: COMMON NORMALS: patient oriented x3 SENSORIUM/ORIENTATION: Yes alert MENINGEAL SIGNS: Yes no meningeal signs Course Vital Signs: Vital signs: Vital Signs Temperature 97.9 F 02/13/23 16:38 Pulse Rate 76 02/13/23 18:05 Respiratory Rate 16 02/13/23 18:05 Blood Pressure 144/94 02/13/23 18:05 Pulse Oximetry 94 02/13/23 18:05 Oxygen Delivery Me thod Room Air 02/13/23 18:05 MDM - Headache Medical Decision Making Patient presented with migraine headache similar to in the past. Patient was given a combination of Toradol, Dilaudid, Phenergan, Decadron and his headache decreased from a 14 to an 8. Patient did ask for a sleeping pill so he can go h ome and sleep the rest of it off. 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 Differential Diagnosis Likely migraine and headache; Unlikely tension headache, subarachnoid hemorrhage, meningitis, sinusitis or postconcussion syndrome Medical Records I reviewed the patient's medical records. Lab Data I reviewed the patient's lab results. All radiology interpretation(s) finalized by discharge Discharge Plan Discharge Patient Disposition: Home Clinical Impression: Headache Condition: Stable Prescriptions: No Action albuterol sulfate [ProAir HFA] 90 mcg/actuation HFA aerosol inhaler 2 puff INHALATION Q6H PRN (Reason: Shortness Of Breath Or Wheezing) tamsulosin 0.4 mg capsule 0.4 mg PO DAILY potassium chloride 10 mEq capsule, extended release 30 meq PO BID zolpidem 6.25 mg tablet,ext release multiphase 6.25 mg PO BEDTIME budesonide-formoterol 160-4.5 mcg/actuation HFA aerosol inhaler 2 puff inhalation BID celecoxib [Celebrex] 200 mg capsule 200 mg PO BID rizatriptan 10 mg tablet See Rx Instructions PO .COMPLEX Rx Instructions: take 1 tab at onset of headache; if no relief may repeat 1 tab after at least 2 hrs; max = 3 tabs/24 hr PO amlodipine 5 mg tablet 5 mg PO DAILY Qty: 30 6RF furosemide 20 mg tablet 40 mg PO DAILY Qty: 100 1RF lisinopril 40 mg tablet 40 mg PO DAILY nitroglycerin [Nitrostat] 0.4 mg tablet, sublingual 0.4 mg sublingual Q5M PRN (Reason: chest pain) Qty: 25 3RF Rx Instructions: do not exceed 3 doses per episode hydralazine 100 mg tablet 100 mg PO TID Qty: 270 2RF metoprolol tartrate 75 mg tablet 75 mg PO BID Qty: 90 3RF oxycodone 15 mg Tablet 15 mg PO Q6H PRN (Reason: Pain) Hold Instructions: Resume on 11/26/21. magnesium 250 mg Tablet 500 mg PO DAILY bnuxcrumrx-fsebmoqnqofmj-cguo 50-325-40 mg Tablet 1 tab PO Q6H PRN (Reason: Headache) omeprazole 20 mg capsule,delayed release(DR/EC) 20 mg PO DAILY ketoconazole 2 % shampoo See Rx Instructions .ROUTE .COMPLEX Rx Instructions: topically as directed 2 times a week divalproex 500 mg tablet,delayed release (DR/EC) 500 mg PO BID bupropion HCl 150 mg tablet extended release 24 hr 150 mg PO DAILY Vitamin D3 25 mcg (1,000 unit) Tablet 25 mcg PO DAILY PreserVision AREDS-2 250-90-40-1 mg Capsule 1 tab PO BID isosorbide mononitrate 30 mg tablet extended release 24 hr 30 mg PO DAILY Qty: 30 0RF Discharge Orders: Discharge ED (Routine); Ordered 02/13/23 Ordered By: Aidan Lima Referrals: Igor Aguilera [Primary Care Provider] - 1 week Patient Instructions: Acute Headache (ED) Activity Restrictions/Additional Instructions: Please go home and try to sleep the rest of your headache off. If your headache returns or worsens please return to the ER for further evaluation and treatment. Otherwise please follow-up with your family doctor for continued evaluation of your chronic headaches. Coding Level of Care Code ED Application Support Engineer for Zahraa Julio
[2023-02-13] MEDS: dexamethasone 10 mg/mL INJ IM (16:57)
[2023-02-13] MEDS: promethazine 25 mg/mL SDV 1 mL IM (17:00)
[2023-02-13] MEDS: ketorolac 60 mg/2 mL INJ IM (17:02)
[2023-02-13 17:06] VITALS: BP 140/110; PULSE 79; RESP 20; O2SAT 95
[2023-02-13 18:02] VITALS: RESP 16; O2SAT 95
[2023-02-13] MEDS: HYDROmorphone 1 mg/mL INJ 1 mL IM (18:02)
[2023-02-13 18:05] VITALS: BP 144/94; PULSE 76; RESP 16; O2SAT 94
[2023-02-13 19:23] VITALS: BP 175/116; PULSE 82; RESP 16; O2SAT 93
[2023-02-13] MEDS: zolpidem 5 mg Tablet PO (19:25)
[2023-02-13 19:27] VITALS: BP 175/116; PULSE 82; RESP 16; O2SAT 93
== END 2023-02-13 19:29 | disposition home or self-care (01) ==
PROVIDERS: Emergency Provider Emergency Medicine; PCP Family Medicine
DX: R51.9 Headache, unspecified (principal); I13.0 Hypertensive heart and chronic kidney disease with heart failure and stage 1 through stage 4 chronic kidney disease, or unspecified chronic kidney disease; N18.9 Chronic kidney disease, unspecified; I50.9 Heart failure, unspecified; Z86.73 Personal history of transient ischemic attack (TIA), and cerebral infarction without residual deficits; Z87.891 Personal history of nicotine dependence
CPT/HCPCS: 96372; 99284; J1100; J1170; J1885; J2550

== ENCOUNTER 2023-02-17 08:05 | Outpatient (CLI) | payer MEDICARE, SELFPAY ==
--- NOTE | 2023-02-17 | ECG_ITS ---
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 Interpretive Statements NAME OF STUDY: LEXISCAN SESTAMIBI STRESS TEST INDICATION: [Chest Pain] PROCEDURE: At the baseline, the blood pressure was 119/63 mm Hg with a heart rate of 76 bpm and oxygen saturation of 94%. The electrocardiogram showed atrial fibrillation, incomplete RBBB. Non specific ST depression. ??? The Lexiscan was infused over a period of 20 seconds. A total of 0.4 milligrams of Lexiscan was infused. The stress phase was continued for a total of 5 minutes. Heart rate at the end of the stress phase was 82 bpm with a blood pressure of 121/74 mm Hg. The EKG at the peak infusion revealed no significant ST-T wave changes. ??? Sestamibi was injected 20 seconds after the Lexiscan infusion. ??? Blood pressure at the end of the recovery phase was 115/59 mm Hg with a heart rate of 82 beats per minute. ??? CONCLUSION: 1. No significant EKG changes with the LexiScan infusion. 2. No LexiScan induced chest pain or cardiac arrhythmia. 3. Normal blood pressure and heart rate response. 4. Sestamibi/sestamibi perfusion scan pending; see separate report. Electronically Signed On 02-20-2023 14:53:15 SCALE OPERATOR by Bonita Montoya M.D. [id number]
[2023-02-17 08:17] VITALS: BMI 42.2
--- NOTE | 2023-02-17 08:22 | NMCV_ITS ---
NM radha perf SPECT r/s* [id number] Dajuan Presley Age: 77 Gender: M : 1945 Exam Date: 02/17/2023 08:22 Ordering Phys: Sami Larose DO Technologist: NANCI Mccullough Exam Location: [facility] Indications: CHEST PAIN STRESS TEST Please see separate stress test report in [facility] for full findings IMAGE PROTOCOL Rest/Stress 1 Lexiscan Day Radiopharmaceutical Dose (mCi) Administration Site Administered by Rest: Tc-99m 11.0 IV NANCI Givens Sestamibi Stress:Tc-99m 33.0 IV NANCI Givens Sestamibi Rest: 17-Feb-2023 60 Discovery 630 Stress: 17-Feb-2023 30 Discovery 630 0.4mg Lexiscan. Supine position only as patient was unable to lay prone. SPECT RESULTS Technical Quality: Excellent Raw Data Analysis: Normal Image Corrections: No attenuation or motion correction applied Summed Stress Score: 0 Summed Rest Score: 0 Summed Difference Score: 0 PERFUSION FINDINGS Fairly uniform myocardial tracer uptake with no significant perfusion abnormalities FUNCTIONAL RESULTS (calculated via Gated SPECT) Stress Image LV EF (%): 64 Stress EDV (mL):97 TID: 0.91 Stress ESV (mL):35 FUNCTIONAL FINDINGS: Segmental wall motion analysis revealing no gross wall motion abnormalities IMPRESSIONS 1. Unremarkable Myocardial perfusion imaging 2. Normal ejection fraction 64% 3. LV wall motion analysis revealing no gross wall motion abnormalities. 4. Normal LV volume Low probability for coronary ischemia, based on the above findings Dr Nandini Zimmerman MD [facility] (Electronically Signed) Final Date: 17 February 2023 20:03 S
[2023-02-17] MEDS: regadenoson 0.4 Mg/5 ml Syringe IVP (10:16)
[2023-02-17 10:32] VITALS: BP 114/58; PULSE 72
--- NOTE | 2023-02-17 11:13 | USCV_ITS ---
Dajuan Presley Age: 77 Gender: M : 1945 Exam Date: 02/17/2023 11:29 Ordering Phys: Sami Larose DO Technologist: Saeed Lua Exam Location[place] [facility] [place]ication: chest pain BP: 143 / 87 HR: 80 Rhythm: Sinus Technical Quality: Adequate MEASUREMENTS (Male / Female) Normal Values 2D ECHO LV Diastolic Diameter PLAX 4.8 cm 4.2 - 5.9 / 3.9 - 5.3 cm LV Systolic Diameter PLAX 3.2 cm IVS Diastolic Thickness 1.0 cm 0.6 - 1.0 / 0.6 - 0.9 cm IVS Systolic Thickness 1.7 cm LVPW Diastolic Thickness 0.9 cm 0.6 - 1.0 / 0.6 - 0.9 cm LVPW Systolic Thickness 1.3 cm LVOT Diameter 2.1 cm LV Ejection Fraction 2D Teich 60.9 % LV Ejection Fraction MOD 2C 54.1 % LV Ejection Fraction 2C AL 55.9 % LA Diameter 4.4 cm IVC Diameter 1.3 cm M-MODE Aortic Annulus Diameter 4.1 cm LA Ao Ratio MM 1.1 MV E Point Septal Separation 0.7 cm DOPPLER AV Peak Velocity 136.0 cm/s LVOT Peak Velocity 82.0 cm/s AV Area Cont Eq vti 1.7 cm squared AV Area Cont Eq pk 2.0 cm squared MV Area PHT 9.2 cm squared Mitral E to A Ratio 0.8 MV E' Velocity 28.5 cm/s Mitral E to MV E' Ratio 8.9 Mitral E to LV E' Lateral Ratio 7.2 Mitral E to LV E' Septal Ratio 11.6 TR Peak Velocity 151.0 cm/s TR Peak Gradient 9.1 mmHg TV Peak E Velocity 105.0 cm/s Right Atrial Pressure 3.0 mmHg Pulmonary Artery Systolic Pressu 12.1 mmHg FINDINGS Left Ventricle Normal left ventricular size, systolic function and wall thickness, with no regional wall motion abnormalities. Left ventricular ejection fraction is estimated at 55-60 %. Rhythm precludes evaluation of diastolic function. Right Ventricle Normal right ventricular size and systolic function. Right ventricular systolic pressure 12.1 mmHg. Right Atrium Normal right atrial size. Left Atrium Normal left atrial size. Mitral Valve Structurally normal mitral valve. No mitral valve stenosis. No mitral valve regurgitation. Aortic Valve Aortic valve not well visualized. No aortic valve stenosis. Trace aortic valve regurgitation. Tricuspid Valve Structurally normal tricuspid valve. Trace tricuspid valve regurgitation. Pulmonic Valve Pulmonic valve not well visualized. No pulmonary valve stenosis. No pulmonary valve regurgitation. Pericardium No pericardial effusion. Aorta Normal size aortic root and proximal ascending aorta. IVC Normal IVC dimension with >50% respiratory change of the inferior vena cava. CONCLUSIONS 1. Normal left ventricular size, systolic function and wall thickness, with no regional wall motion abnormalities. Left ventricular ejection fraction is estimated at 55-60 %. 2. Trace aortic valve regurgitation. 3. When compared to study dated 08/19/22, LV systolic function seems to have improved . Bonita Montoya MD (Electronically Signed) Final Date: 18 February 2023 22:50 S
== END 2023-02-17 08:06 | disposition home or self-care (01) ==
PROVIDERS: PCP Family Medicine; Visit Provider Family Medicine
DX: R07.9 Chest pain, unspecified (principal); I35.1 Nonrheumatic aortic (valve) insufficiency
CPT/HCPCS: 36415; 78452; 93017; 93306; 96374; A9500; J2785

== ENCOUNTER 2023-03-06 09:39 | Emergency (ER) | payer MEDICARE, SELFPAY ==
[2023-03-06 09:53] VITALS: BP 119/76; PULSE 73; RESP 19; TEMP 36.6; O2SAT 92; BMI 41.5
--- NOTE | 2023-03-06 09:53 | W.ED.HA ---
HPI - Headache General: Chief Complaint: Headache Stated Complaint: Migraine Time Seen by Provider: 03/06/23 09:45 Source: patient Mode of arrival: ambulatory Limitations: no limitations History of Present Illness: Patient is a nice 77-year-old male who presents to ED today with a complaint of a headache. 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 States since that time he has had chronic headaches that seem to slowly be progressively worsening. Patient has seen multiple neurologists including Dr. Key but has seemed unsatisfied with their care stating that his headaches cannot seem to be controlled. He has been on several previous medications for the headaches without relief. Headache today seems similar to previous headaches only worse in severity. He has been seeing his PCP Dr. Aguilera for the headaches. MD elicited complaint: headache Onset (ago): day(s) Severity: severe Pain scale (0-10): 10 Exacerbating factors: none Relieving factors: nothing Associated symptoms: Reports nausea; Deny chest pain, confusion, fever(s), malaise, rash or vomiting Treatments prior to arrival: none Review of Systems Const: Denies: fever(s), chills, body aches, fatigue or malaise Eyes: Denies: change in vision, blurry vision, photophobia, floaters or seeing flashes Card: Denies: chest pain Resp: Denies: dyspnea GI: Reports: nausea; Denies: abdominal pain, vomiting, diarrhea or GI cramping : Denies: flank pain or dysuria Musc: Denies: neck pain, back pain, extremity pain or joint pain Skin/Breast: Denies: rash Neuro: Reports: headache(s); Denies: numbness in extremities, weakness in extremities, sensory changes, lack of coordination, difficulty walking, frequent falls, dizziness, vertigo, confusion, behavioral changes, Slurred speech present, difficulty communicating thoughts or seizure-like activity PFS ED PFSH: Medical History Subdural hematoma BPH (benign prostatic hyperplasia) Lower urinary tract symptoms (LUTS) Arthritis Chronic migraine Chronic kidney disease BPH (benign prostatic hyperplasia) History of TIA (transient ischemic attack) ASHD (arteriosclerotic heart disease) CHF (congestive heart failure) HTN (hypertension) Surgical History H/O craniotomy Previous back surgery S/P knee replacement S/P shoulder surgery S/P carpal tunnel release Family History Mother , AT AGE 76 BRAIN ANEURYSM No problems noted. Father , AT AGE 84 WIND TURBINE ERECTOR,HEART DISEASE Cancer PROSTATE CAD (coronary artery disease) Social History Smoking and tobacco/nicotine status: former use of tobacco/nicotine Alcohol intake: unknown Substance/Drug Use: unknown Adopted: No Caregiver/support person: No Lives independently: Yes Marital status: / Current occupational status: retired Current gender identity: Male Physical Exam Const: COMMON NORMALS: no acute distress, patient oriented x3, no limitations, alert and well nourished GENERAL APPEARANCE: cooperative ORIENTATION/CONSCIOUSNESS: Yes awake, Yes oriented to person, Yes oriented to place and Yes oriented to time HENMT: COMMON NORMALS: normocephalic and atraumatic HEAD & SCALP: normal to inspection, normocephalic and atraumatic Eye: COMMON NORMALS: Equal, round and reactive pupils present and EOMs intact bilaterally GENERAL EYE: appearance normal, both eyes and all related structures and normal light reflex PUPIL: Yes Equal, round and reactive pupils present DIRECT OPHTHALMOSCOPY: Yes normal light reflex Neck/C-Spine: COMMON NORMALS: full ROM, no lymphadenopathy and no meningeal signs Neuro: [place] COMA SCALE: document GCS findings [place] coma scale eye opening: Spontaneous [place] coma scale verbal response: Orientated [place] coma scale motor response: Obey commands [place] coma scale total score: 15 COMMON NORMALS: patient oriented x3, CN's II-XII intact bilaterally, moves all extremities, no focal motor deficits, no sensory deficits noted and gait normal SENSORIUM/ORIENTATION: Yes alert, Yes oriented to person, Yes oriented to place and Yes oriented to time MENINGEAL SIGNS: Yes no meningeal signs Skin: COMMON NORMALS: no rashes or lesions noted GENERAL SKIN EXAM: no rashes or lesions noted Course Vital Signs: Vital signs: Vital Signs Temperature 97.8 F 03/06/23 09:53 Pulse Rate 76 03/06/23 10:36 Respiratory Rate 19 H 03/06/23 09:53 Blood Pressure 108/59 03/06/23 10:36 Pulse Oximetry 92 03/06/23 10:36 Oxygen Delivery Me thod Room Air 03/06/23 10:36 MDM - Headache Medical Decision Making Patient here for chronic intractable headache. He has been on multiple medications at home over the past several years without any form of relief. Patient states he actually had an appoint with his primary care provider today but decided to come to the ED instead. states he does have an appointment scheduled for Thursday. They do want to follow up with neurology. Had a case management referral placed on a previous ED visit but states they never heard anything from the clinic in regards to an appointment. Patient states at time of re-assessment that he would like to go home and take a nap as this has helped last time he received IM meds in the ED and states the headache was improved after he slept. Return to ED precautions given. No CT performed today as he has had these before with identical complaints. Medical Records I reviewed the patient's medical records. No radiology studies performed this visit Discharge Plan Discharge Patient Disposition: Home Clinical Impression: Chronic headache Qualifiers: Headache type: unspecified Intractability: intractable Qualified Code(s): R51.9 - Headache, unspecified Condition: Stable Prescriptions: No Action albuterol sulfate [ProAir HFA] 90 mcg/actuation HFA aerosol inhaler 2 puff INHALATION Q6H PRN (Reason: Shortness Of Breath Or Wheezing) tamsulosin 0.4 mg capsule 0.4 mg PO DAILY potassium chloride 10 mEq capsule, extended release 30 meq PO BID zolpidem 6.25 mg tablet,ext release multiphase 6.25 mg PO BEDTIME budesonide-formoterol 160-4.5 mcg/actuation HFA aerosol inhaler 2 puff inhalation BID celecoxib [Celebrex] 200 mg capsule 200 mg PO BID rizatriptan 10 mg tablet See Rx Instructions PO .COMPLEX Rx Instructions: take 1 tab at onset of headache; if no relief may repeat 1 tab after at least 2 hrs; max = 3 tabs/24 hr PO amlodipine 5 mg tablet 5 mg PO DAILY Qty: 30 6RF furosemide 20 mg tablet 40 mg PO DAILY Qty: 100 1RF lisinopril 40 mg tablet 40 mg PO DAILY nitroglycerin [Nitrostat] 0.4 mg tablet, sublingual 0.4 mg sublingual Q5M PRN (Reason: chest pain) Qty: 25 3RF Rx Instructions: do not exceed 3 doses per episode hydralazine 100 mg tablet 100 mg PO TID Qty: 270 2RF metoprolol tartrate 75 mg tablet 75 mg PO BID Qty: 90 3RF oxycodone 15 mg Tablet 15 mg PO Q6H PRN (Reason: Pain) Hold Instructions: Resume on 11/26/21. magnesium 250 mg Tablet 500 mg PO DAILY bxrdufynjr-rzbmaocxvsqhd-llgw 50-325-40 mg Tablet 1 tab PO Q6H PRN (Reason: Headache) omeprazole 20 mg capsule,delayed release(DR/EC) 20 mg PO DAILY ketoconazole 2 % shampoo See Rx Instructions .ROUTE .COMPLEX Rx Instructions: topically as directed 2 times a week divalproex 500 mg tablet,delayed release (DR/EC) 500 mg PO BID bupropion HCl 150 mg tablet extended release 24 hr 150 mg PO DAILY Vitamin D3 25 mcg (1,000 unit) Tablet 25 mcg PO DAILY PreserVision AREDS-2 250-90-40-1 mg Capsule 1 tab PO BID isosorbide mononitrate 30 mg tablet extended release 24 hr 30 mg PO DAILY Qty: 30 0RF Discharge Orders: Discharge ED (Routine); Ordered 03/06/23 Ordered By: Rukhsana Amaya Referrals: Igor Aguilera [Primary Care Provider] - Coding Level of Care Code 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
[2023-03-06] MEDS: diphenhydrAMINE 50 mg/mL SDV 1mL IM (10:06)
[2023-03-06] MEDS: ketorolac 30 mg/mL INJ IM (10:06)
[2023-03-06] MEDS: dexamethasone 10 mg/mL INJ 8 MG IM (10:07)
[2023-03-06 10:36] VITALS: BP 108/59; PULSE 76; O2SAT 92
[2023-03-06 11:28] VITALS: BP 108/83; PULSE 75; O2SAT 92
[2023-03-06 11:32] VITALS: RESP 18; O2SAT 91
[2023-03-06] MEDS: HYDROmorphone 1 mg/mL INJ 1 mL 0.5 MG IM (11:32)
[2023-03-06 11:53] VITALS: BP 113/81; PULSE 75; O2SAT 91
--- NOTE | 2023-03-10 09:28 | DCPLANNER ---
Message sent to neurology for a follow up with Dr. stern- chronic headaches-
== END 2023-03-06 11:54 | disposition home or self-care (01) ==
PROVIDERS: Emergency Provider Physician Assistant; PCP Family Medicine
DX: R51.9 Headache, unspecified (principal); I13.0 Hypertensive heart and chronic kidney disease with heart failure and stage 1 through stage 4 chronic kidney disease, or unspecified chronic kidney disease; N18.9 Chronic kidney disease, unspecified; I50.9 Heart failure, unspecified; Z86.73 Personal history of transient ischemic attack (TIA), and cerebral infarction without residual deficits; Z87.891 Personal history of nicotine dependence
CPT/HCPCS: 96372; 99284; J1100; J1170; J1200; J1885

== ENCOUNTER 2023-03-27 09:31 | Emergency (ER) | payer MEDICARE, SELFPAY ==
[2023-03-27 09:31] VITALS: BP 157/91; PULSE 74; RESP 16; O2SAT 93
--- NOTE | 2023-03-27 09:39 | W.ED.HA ---
HPI - Headache General: Chief Complaint: Headache Stated Complaint: headache Time Seen by Provider: 03/27/23 09:31 Source: patient Mode of arrival: EMS Limitations: no limitations History of Present Illness: Patient is a 77-year-old male who is well-known to me from previous encounters here again for complaints of a migraine headache. Patient has a very longstanding history of headaches. He has had a previous left craniotomy and patient states following that procedure he has suffered with chronic migraines. Patient has been to many neurologists and has been on several several different medications all of which he states do not help. Patient states he actually just saw a neurologist yesterday in [place] (Dr. Lyle-placed him on 30mg Duloxetine). He has also been following up with his primary care provider Dr. Henry-states he is supposed to be talking to him about possibly starting Nurtec). He comes in today with complaints of similar headache. Since I last saw him on 03/06 he states he has had 3-4 minor headaches and one higher intensity one that he was able to rest/sleep to treat. States he woke up this morning with this headache and is rating it as severe, although comparable to other severe headaches he has had. MD elicited complaint: headache and migraine Pertinent past history: migraines Onset (ago): day(s) Location: generalized Severity: severe Quality & Timing: similar to previous headaches Exacerbating factors: none Relieving factors: nothing Associated symptoms: Reports no associated symptoms; Deny chest pain, confusion, fever(s), lightheadedness, malaise, nausea, rash, syncope or vomiting Treatments prior to arrival: none Review of Systems Const: Denies: fever(s), chills, body aches, fatigue or malaise Eyes: Denies: change in vision, blurry vision, photophobia, floaters or seeing flashes Card: Denies: chest pain, palpitations, irregular heart rhythm, lightheadedness, syncope or dyspnea on exertion Resp: Denies: dyspnea, productive cough or pain on inspiration GI: Denies: abdominal pain, nausea, vomiting, heartburn or diarrhea : Denies: difficulty urinating or dysuria Musc: Denies: neck pain, back pain or joint pain Skin/Breast: Denies: rash Neuro: Reports: headache(s); Denies: numbness in extremities, weakness in extremities, sensory changes, lack of coordination, difficulty walking, frequent falls, dizziness, vertigo, confusion, behavioral changes, Slurred speech present, difficulty communicating thoughts or seizure-like activity PFSH ED PFSH: Medical History Subdural hematoma BPH (benign prostatic hyperplasia) Lower urinary tract symptoms (LUTS) Arthritis Chronic migraine Chronic kidney disease BPH (benign prostatic hyperplasia) History of TIA (transient ischemic attack) ASHD (arteriosclerotic heart disease) CHF (congestive heart failure) HTN (hypertension) Surgical History H/O craniotomy Previous back surgery S/P knee replacement S/P shoulder surgery S/P carpal tunnel release Family History Mother , AT AGE 76 BRAIN ANEURYSM No problems noted. Father , AT AGE 84 SNOWBLOWER MECHANIC,HEART DISEASE Cancer PROSTATE CAD (coronary artery disease) Social History Smoking and tobacco/nicotine status: former use of tobacco/nicotine Alcohol intake: unknown Substance/Drug Use: unknown Adopted: No Caregiver/support person: No Lives independently: Yes Marital status: / Current occupational status: retired Current gender identity: Male Physical Exam Const: COMMON NORMALS: no acute distress, patient oriented x3, no limitations, alert and well nourished GENERAL APPEARANCE: cooperative NUTRITIONAL APPEARANCE: obese ORIENTATION/CONSCIOUSNESS: Yes awake, Yes oriented to person, Yes oriented to place and Yes oriented to time HENMT: COMMON NORMALS: normocephalic and atraumatic HEAD & SCALP: normal to inspection, normocephalic and atraumatic FACE & SINUS: normal facial exam, sinuses nontender and face symmetric Eye: COMMON NORMALS: Equal, round and reactive pupils present and EOMs intact bilaterally GENERAL EYE: appearance normal, both eyes and all related structures and normal light reflex PUPIL: Yes Equal, round and reactive pupils present DIRECT OPHTHALMOSCOPY: Yes normal light reflex Neck/C-Spine: COMMON NORMALS: full ROM, no lymphadenopathy, supple and no meningeal signs Chest: COMMONS NORMALS: normal inspection of the chest Resp: COMMON NORMALS: normal respiratory effort and clear to auscultation bilaterally AUSCULTATION: clear to auscultation bilaterally Cardio: COMMON NORMALS: regular rate and regular rhythm RATE: regular rate RHYTHM: regular rhythm GI: COMMON NORMALS: Normal to inspection, nondistended, normoactive bowel sounds present, Soft to palpation, non-tender, No hepatosplenomegaly present and no masses PALPATION: Yes Soft to palpation and Yes No hepatosplenomegaly present : COMMON NORMALS: Yes no CVA tenderness BLADDER/KIDNEY EXAM: Yes no CVA tenderness Back/Pelvis: COMMON NORMALS: no CVA tenderness and thoracic and lumbar spine normal to inspection Extremity: COMMON NORMALS: normal to inspection GENERAL: Yes normal exam except as noted Neuro: [place] COMA SCALE: document GCS findings [place] coma scale eye opening: Spontaneous [place] coma scale verbal response: Orientated [place] coma scale motor response: Obey commands [place] coma scale total score: 15 COMMON NORMALS: patient oriented x3, CN's II-XII intact bilaterally, moves all extremities, no focal motor deficits, no sensory deficits noted and gait normal SENSORIUM/ORIENTATION: Yes alert, Yes oriented to person, Yes oriented to place and Yes oriented to time MENINGEAL SIGNS: Yes no meningeal signs Skin: COMMON NORMALS: no rashes or lesions noted GENERAL SKIN EXAM: no rashes or lesions noted Course Vital Signs: Vital signs: Vital Signs Pulse Rate 74 03/27/23 09:31 Respiratory Rate 17 03/27/23 09:56 Blood Pressure 157/91 03/27/23 09:31 Pulse Oximetry 94 03/27/23 09:56 Oxygen Delivery Me thod Room Air 03/27/23 09:31 MDM - Headache Medical Decision Making Patient here with chronic headaches. Nothing abnormal or different about this one today. Just saw neurology yesterday. Has follow up with PCP in within a week or so per . Patient is ready to go home today and rest. Return to ED precautions given. No radiology studies performed this visit Discharge Plan Discharge Patient Disposition: Home Clinical Impression: Chronic headaches Qualifiers: Headache type: unspecified Intractability: intractable Qualified Code(s): R51.9 - Headache, unspecified Condition: Stable Prescriptions: No Action albuterol sulfate [ProAir HFA] 90 mcg/actuation HFA aerosol inhaler 2 puff INHALATION Q6H PRN (Reason: Shortness Of Breath Or Wheezing) tamsulosin 0.4 mg capsule 0.4 mg PO DAILY potassium chloride 10 mEq capsule, extended release 30 meq PO BID zolpidem 6.25 mg tablet,ext release multiphase 6.25 mg PO BEDTIME budesonide-formoterol 160-4.5 mcg/actuation HFA aerosol inhaler 2 puff inhalation BID celecoxib [Celebrex] 200 mg capsule 200 mg PO BID rizatriptan 10 mg tablet See Rx Instructions PO .COMPLEX Rx Instructions: take 1 tab at onset of headache; if no relief may repeat 1 tab after at least 2 hrs; max = 3 tabs/24 hr PO amlodipine 5 mg tablet 5 mg PO DAILY Qty: 30 6RF furosemide 20 mg tablet 40 mg PO DAILY Qty: 100 1RF lisinopril 40 mg tablet 40 mg PO DAILY nitroglycerin [Nitrostat] 0.4 mg tablet, sublingual 0.4 mg sublingual Q5M PRN (Reason: chest pain) Qty: 25 3RF Rx Instructions: do not exceed 3 doses per episode hydralazine 100 mg tablet 100 mg PO TID Qty: 270 2RF metoprolol tartrate 75 mg tablet 75 mg PO BID Qty: 90 3RF oxycodone 15 mg Tablet 15 mg PO Q6H PRN (Reason: Pain) Hold Instructions: Resume on 11/26/21. magnesium 250 mg Tablet 500 mg PO DAILY toxftdzalo-czlghrbyjizza-iigl 50-325-40 mg Tablet 1 tab PO Q6H PRN (Reason: Headache) omeprazole 20 mg capsule,delayed release(DR/EC) 20 mg PO DAILY ketoconazole 2 % shampoo See Rx Instructions .ROUTE .COMPLEX Rx Instructions: topically as directed 2 times a week divalproex 500 mg tablet,delayed release (DR/EC) 500 mg PO BID bupropion HCl 150 mg tablet extended release 24 hr 150 mg PO DAILY Vitamin D3 25 mcg (1,000 unit) Tablet 25 mcg PO DAILY PreserVision AREDS-2 250-90-40-1 mg Capsule 1 tab PO BID isosorbide mononitrate 30 mg tablet extended release 24 hr 30 mg PO DAILY Qty: 30 0RF Discharge Orders: Discharge ED (Routine); Ordered 03/27/23 Ordered By: Rukhsana Amaya Referrals: Igor Aguilera [Primary Care Provider] - Coding Level of Care Code ED Acquisition Cost Estimator for Chg Fwd
[2023-03-27 09:56] VITALS: RESP 17; O2SAT 94
[2023-03-27] MEDS: HYDROmorphone 1 mg/mL INJ 1 mL IM (09:56)
[2023-03-27] MEDS: dexamethasone 10 mg/mL INJ 8 MG IM (09:56)
[2023-03-27] MEDS: ketorolac 30 mg/mL INJ IM (09:56)
[2023-03-27] MEDS: diphenhydrAMINE 50 mg/mL SDV 1mL IM (09:56)
[2023-03-27 10:43] VITALS: BP 127/91; PULSE 73; O2SAT 92
== END 2023-03-27 10:45 | disposition home or self-care (01) ==
PROVIDERS: Emergency Provider Physician Assistant; PCP Family Medicine
DX: R51.9 Headache, unspecified (principal); Z87.891 Personal history of nicotine dependence; I13.0 Hypertensive heart and chronic kidney disease with heart failure and stage 1 through stage 4 chronic kidney disease, or unspecified chronic kidney disease; N18.9 Chronic kidney disease, unspecified; I50.9 Heart failure, unspecified; Z86.73 Personal history of transient ischemic attack (TIA), and cerebral infarction without residual deficits
CPT/HCPCS: 96372; 99284; J1100; J1170; J1200; J1885

== ENCOUNTER → 2023-04-09 12:45 | Outpatient (BNVA) | payer MEDICARE, SELFPAY | PROVIDERS: PCP Family Medicine; Visit Provider Internal Medicine Cardiovascular Disease | DX: I11.0 Hypertensive heart disease with heart failure (principal); I50.33 Acute on chronic diastolic (congestive) heart failure; I25.10 Atherosclerotic heart disease of native coronary artery without angina pectoris; R00.1 Bradycardia, unspecified; I48.91 Unspecified atrial fibrillation; Z95.1 Presence of aortocoronary bypass graft; E78.5 Hyperlipidemia, unspecified; Z87.891 Personal history of nicotine dependence | CPT/HCPCS: 99214 ==

== ENCOUNTER 2023-06-24 10:32 | Inpatient (IN) | payer MEDICARE, SELFPAY ==
[2023-06-24] VITALS (16 sets, daily range): BP systolic 113–143; BP diastolic 64–93; PULSE 85–123; RESP 19–34; TEMP 36.6–36.8; O2SAT 91–96; BMI 41.5
--- NOTE | 2023-06-24 10:38 | ECG_ITS ---
[facility] Test Date: 2023-06-24 Pat Name: Dajuan Presley Department: Room: Gender: Male Foot Caster: : 1945 Requested By: Sami Solitario Order Number: [id number] Stevie MD: Nandini Zimmerman M.D. Measurements Intervals May Rate: 120 P: 0 PA: 0 QRS: 11 QRSD: 111 T: 70 QT: 319 QTc: 452 Interpretive Statements Atrial fibrillation with rapid ventricular rate MODERATE INTRAVENTRICULAR CONDUCTION DELAY [110+ ms QRS DURATION] MODERATE ST DEPRESSION [0.05+ mV ST DEPRESSION] Compared to ECG 02/01/2023 14:32:19 Intraventricular conduction delay now present Incomplete right bundle-branch block no longer present ST (T wave) deviation still present Electronically Signed On 06-24-2023 18:32:19 CDT by Nandini Zimmerman M.D. [email or web address].Funding [id number]
--- NOTE | 2023-06-24 10:47 | XRR_ITS ---
PROCEDURE INFORMATION: Exam: XR Chest Exam date and time: 06/24/2023 11:00 AM Age: 77 years old Clinical indication: Cough and dyspnea and shortness of breath; Patient HX: HX of prostate cancer; Additional info: Dyspnea/cough TECHNIQUE: Imaging protocol: Radiologic exam of the chest. Views: 1 view. COMPARISON: CR XR chest 1V portable [id number] 02/01/2023 1:51 PM FINDINGS: Lungs: Unremarkable. No consolidation. Pleural spaces: Unremarkable. No pleural effusion. No pneumothorax. Heart/Mediastinum: Unremarkable. No cardiomegaly. Bones/joints: Left shoulder replacement. XR/XR chest 1V portable [id number] IMPRESSION: No acute findings.
[2023-06-24 11:04] LABS: Basophils % 0.4 %; Eosinophils # 0.2 10^3/uL (0.0-0.8); Eosinophils % 2.1 %; Hematocrit 42.1 % (37-53); Lymphocytes # 1.4 10^3/uL (0.8-4.8); Lymphocytes % 19.9 %; Mean Corpuscular HGB Conc 32.8 g/dL (30-55); Mean Corpuscular Hemoglobin 34.2 pg (27-33); Mean Corpuscular Volume 104.2 fl (82-101); Mean Platelet Volume 10.7 fL (7.4-10.4); Monocytes # 0.7 10^3/uL (0.2-0.9); Monocytes % 9.9 %; Neutrophils # 4.88 10^3/uL (1.8-7.7); Neutrophils % 67.4 %; Nucleated Red Blood Cells % 0 %; Platelet Count 130 10^3/cmm (157-399); Red Blood Count 4.04 10^6/uL (3.85-5.65); Red Cell Distribution Width 13.4 % (12.1-15.1); White Blood Count 7.24 10^3/uL (3.29-11.43)
[2023-06-24 11:25] LABS: Troponin(5th) Baseline 81 ng/L (0-15)
--- NOTE | 2023-06-24 11:27 | ED_ITS ---
HPI - Chest Pain 2 General: Chief Complaint: Chest Pain Stated Complaint: Chest Pain, SOB Time Seen by Provider: 06/24/23 10:45 Source: patient Mode of arrival: EMS History of Present Illness: 77-year-old male presents emergency room complaining of shortness of breath over last 3 days increasing shortness of breath and rapid heart rate. Patient has a history of atrial fibrillation he is currently on metoprolol he has been taking his medications regularly. He was previously on Xarelto but it was stopped because he had an intracranial bleed he is currently just taking aspirin. He denies any fever sweats or chills or hemoptysis. Mild orthopnea. MD complaint: chest pain Onset (ago): day(s) (3) Timing of current episode: constant Prior episodes: Yes Onset: during rest Associated symptoms: Deny abdominal pain, diaphoresis, dyspnea, fever(s), leg edema, nausea, palpitations, sense of impending doom, syncope or vomiting Treatment prior to arrival: aspirin Review of Systems 2 Const: Denies: fever(s), chills or diaphoresis Card: Denies: chest pain, palpitations or syncope Resp: Denies: dyspnea GI: Denies: abdominal pain, nausea or vomiting : Denies: dysuria, urinary frequency or urinary urgency Musc: Denies: neck pain or back pain Skin/Breast: Denies: rash PFSH ED 2 PFSH: Medical History (Updated 07/04/23 @ 06:12 by Sami Larose DO) Dyslipidemia Subdural hematoma BPH (benign prostatic hyperplasia) Lower urinary tract symptoms (LUTS) Arthritis Chronic migraine Chronic kidney disease History of TIA (transient ischemic attack) ASHD (arteriosclerotic heart disease) CHF (congestive heart failure) HTN (hypertension) Surgical History Hx of CABG H/O craniotomy Previous back surgery S/P knee replacement S/P shoulder surgery S/P carpal tunnel release Family History Mother , AT AGE 76 BRAIN ANEURYSM No problems noted. Father , AT AGE 84 CLASSIFIED ADVERTISING CLERK,HEART DISEASE Cancer PROSTATE CAD (coronary artery disease) Social History Smoking and tobacco/nicotine status: former use of tobacco/nicotine Alcohol intake: unknown Substance/Drug Use: unknown Adopted: No Caregiver/support person: No Lives independently: Yes Marital status: / Current occupational status: retired Current gender identity: Male Physical Exam 2 Const: GENERAL APPEARANCE: cooperative ORIENTATION/CONSCIOUSNESS: Yes awake, Yes oriented to person, Yes oriented to place and Yes oriented to time HENMT: COMMON NORMALS: normocephalic, atraumatic and hearing grossly normal bilaterally HEAD & SCALP: normocephalic and atraumatic Resp: COMMON NORMALS: normal respiratory effort, No retractions, No use of accessory muscles and clear to auscultation bilaterally AUSCULTATION: clear to auscultation bilaterally Cardio: RATE: tachycardic RHYTHM: abnormal rhythm irregularly irregular GI: COMMON NORMALS: Soft to palpation and No hepatosplenomegaly present A USCULTATION: Yes normoactive bowel sounds PALPATION: Yes Soft to palpation, No Tenderness to palpation present (GI), No Guarding due to palpation present (GI) and Yes No hepatosplenomegaly present Extremity: COMMON NORMALS: normal to inspection, capillary refill normal, no clubbing, cyanosis or edema, no calf tenderness and no pedal edema Neuro: SENSORIUM/ORIENTATION: Yes oriented to person, Yes oriented to place and Yes oriented to time Skin: COMMON NORMALS: no rashes or lesions noted GENERAL SKIN EXAM: no rashes or lesions noted Course 2 Vital Signs: Vital signs: Vital Signs Temperature 97.9 F 07/04/23 04:00 Pulse Rate 69 07/04/23 05:38 Respiratory Rate 21 H 07/04/23 04:00 Blood Pressure 123/81 07/04/23 04:00 Pulse Oximetry 96 07/04/23 04:00 Oxygen Delivery Me thod Nasal Cannula 07/04/23 04:00 Oxygen Flow Rate 2 07/03/23 09:09 MDM - Chest Pain Medical Decision Making Patient presents with A-fib with RVR and moderately decompensated congestive heart failure. Initially treated with Cardizem then switched to amiodarone 1 does not respond to Cardizem we also gave him a small push dose of metoprolol and his regular oral dose. EKG does not show acute changes. Continue troponin series continue amiodarone. Will admit for further workup and rate control. Medical Records I reviewed the patient's medical records. Lab Data I reviewed the patient's lab results. 07/04/23 05:37 07/03/23 04:31 Radiology Impressions Venous Duplex 06/24/23 17:56 IMPRESSION: No evidence of deep vein thrombosis. Abdomen/Pelvis CT 07/03/23 11:53 IMPRESSION: No acute abdominal findings. Laboratory Results WBC 7.24 10^3/uL (3.29-11.43) 06/24/23 11:00 RBC 4.04 10^6/uL (3.85-5.65) 06/24/23 11:00 Hgb 13.80 g/dL (11.27-16.99) 06/24/23 11:00 Hct 42.1 % (37-53) 06/24/23 11:00 MCV 104.2 fl (82-101) H 06/24/23 11:00 MCH 34.2 pg (27-33) H 06/24/23 11:00 MCHC 32.8 g/dL (30-55) 06/24/23 11:00 RDW 13.4 % (12.1-15.1) 06/24/23 11:00 Plt Count 130 10^3/cmm (157-399) L 06/24/23 11:00 MPV 10.7 fL (7.4-10.4) H 06/24/23 11:00 Neut % (Auto) 67.4 % 06/24/23 11:00 Lymph % (Auto) 19.9 % 06/24/23 11:00 Mccormick % (Auto) 9.9 % 06/24/23 11:00 Eos % (Auto) 2.1 % 06/24/23 11:00 Baso % (Auto) 0.4 % 06/24/23 11:00 Neut # (Auto) 4.88 10^3/uL (1.8-7.7) 06/24/23 11:00 Lymph # (Auto) 1.4 10^3/uL (0.8-4.8) 06/24/23 11:00 Mccormick # (Auto) 0.7 10^3/uL (0.2-0.9) 06/24/23 11:00 Eos # (Auto) 0.2 10^3/uL (0.0-0.8) 06/24/23 11:00 Baso # (Auto) 0.0 10^3/uL (0.0-0.1) 06/24/23 11:00 Nucleated RBC % (auto) 0 % 06/24/23 11:00 Nucleated RBCs # 0.0 /100WBC 06/24/23 11:00 D-Dimer 0.75 ug/mLFEU (0-0.59) H 06/24/23 11:00 Sodium 142 mmol/L (136-145) 06/25/23 02:37 Potassium 4.4 mmol/L (3.5-5.1) 06/25/23 02:37 Chloride 101 mmol/L (98-107) 06/25/23 02:37 Carbon Dioxide 32 mmol/L (22-29) H 06/25/23 02:37 Anion Gap 13.4 (5-19) 06/25/23 02:37 BUN 23 mg/dL (8-23) 06/25/23 02:37 Creatinine 1.8 mg/dL (0.7-1.2) H 06/25/23 02:37 GFR Calculation Not Reportable 06/25/23 02:37 Glucose 124 mg/dL (65-115) H 06/25/23 02:37 POC Glucose 130 mg/dL (70-110) H 06/25/23 12:46 Calculated Osmolality 299 mOsm/kg (285-295) H 06/25/23 02:37 Calcium 9.4 mg/dL (8.5-10.5) 06/25/23 02:37 Magnesium 2.2 mg/dL (1.7-2.3) 06/25/23 02:37 Total Bilirubin 0.2 mg/dL (0.15-1.2) 06/25/23 02:37 AST 25 U/L (0-40) 06/25/23 02:37 ALT 11 U/L (0-41) 06/25/23 02:37 Alkaline Phosphatase 101 U/L (40-130) 06/25/23 02:37 Troponin T Baseline 81 ng/L (0-15) H 06/24/23 11:00 Troponin T 120 Minute 78.29 ng/L (0-15) H 06/24/23 13:07 Delta Troponin T -2.71 ABS# (0-10) L 06/24/23 13:07 Troponin T Hi Sens 6Hr 84.23 ng/L (0-15) H 06/24/23 17:25 Troponin T Hi Sens 6Hr Delta 3.23 ng/L (0-12) 06/24/23 17:25 NT-Pro-B Natriuret Pep 673 pg/mL (0-450) H 06/24/23 11:00 Total Protein 6.8 g/dL (6.6-8.7) 06/25/23 02:37 Albumin 3.6 g/dL (3.5-5.2) 06/25/23 02:37 Globulin 3.2 g/dL (1.3-4.6) 06/25/23 02:37 TSH 2.00 uIU/mL (0.27-4.20) 06/24/23 11:00 Urine Color Yellow (Yellow) 06/25/23 16:25 Urine Appearance Clear (CLEAR) 06/25/23 16:25 Urine pH 5 (5-7) 06/25/23 16:25 Ur Specific [place] 1.020 (1.005-1.030) 06/25/23 16:25 Urine Protein Neg (Negative) 06/25/23 16:25 Urine Glucose (UA) Norm (Normal) 06/25/23 16:25 Urine Ketones Negative (Negative) 06/25/23 16:25 Urine Blood Neg (Negative) 06/25/23 16:25 Urine Nitrate Negative (Negative) 06/25/23 16:25 Urine Bilirubin Neg (Negative) 06/25/23 16:25 Urine Urobilinogen Norm mg/dL (Negative) 06/25/23 16:25 Ur Leukocyte Esterase Negative (Negative) 06/25/23 16:25 All radiology interpretation(s) finalized by discharge Discharge Plan Discharge Patient Disposition: Admitted As Inpatient Admit Provider: Hossein Ledezma Clinical Impression: Atrial fibrillation with RVR, Congestive heart failure (CHF), OLLIE (acute kidney injury), Chest pain Condition: Stable Discharge Diet: Cardiac Coding Level of Care Code ED Workforce Management Coordinator for Zahraa Julio
[2023-06-24 11:34] LABS: Alanine Aminotransferase 12 U/L (0-41); Albumin Level 3.6 g/dL (3.5-5.2); Alkaline Phosphatase 114 U/L (40-130); Anion Gap 12.4 (5-19); Aspartate Amino Transferase 23 U/L (0-40); Blood Urea Nitrogen 16 mg/dL (8-23); Calcium 9.1 mg/dL (8.5-10.5); Carbon Dioxide 33 mmol/L (22-29); Chloride 98 mmol/L (98-107); Globulin 3.1 g/dL (1.3-4.6); Glucose 157 mg/dL (65-115); Magnesium 1.9 mg/dL (1.7-2.3); NT Pro B Type Natriuretic Pept 673 pg/mL (0-450); Osmolality Calculated 292 mOsm/kg (285-295); Potassium 4.4 mmol/L (3.5-5.1); Sodium 139 mmol/L (136-145); Total Bilirubin 0.4 mg/dL (0.15-1.2); Total Protein 6.7 g/dL (6.6-8.7)
[2023-06-24 11:52] LABS: Add Urine Microscopic? NO; Charge for UA Resulting for Rev
[2023-06-24 11:54] LABS: Bilirubin Urine Neg (Negative); Blood Urine Neg (Negative); Glucose Urine UA Norm (Normal); Ketones Urine Negative (Negative); Leukocyte Esterase Urine Negative (Negative); Nitrate Urine Negative (Negative); Protein Urine Neg (Negative); Specific Gravity, Urine 1.025 (1.005-1.030); Urine Appearance Clear (CLEAR); Urine Color Dark Yellow (Yellow); Urobilinogen Urine Norm (Negative); pH Urine 5 (5-7)
[2023-06-24] MEDS: dilTIAZem 5 mg/mL SDV 5 mL 20 MG IVP (12:16)
[2023-06-24] MEDS: dilTIAZem 100 MG in sodium chloride 0.9% (add-van) 100 ML IV (12:18)
--- NOTE | 2023-06-24 12:47 | ECG_ITS ---
[facility] Test Date: 2023-06-24 Pat Name: Dajuan Presley Department: Room: Gender: Male Security Intern: : 1945 Requested By: Sami Solitario Order Number: [id number] Stevie MD: Nandini Zimmerman M.D. Measurements Intervals [place] Rate: 108 P: 0 [place]: 0 QRS: -21 QRSD: 110 T: 57 QT: 341 QTc: 458 Interpretive Statements Atrial fibrillation WITH RAPID VENTRICULAR RESPONSE BORDERLINE LEFT AXIS DEVIATION [QRS AXIS < -20] LOW QRS VOLTAGE IN PRECORDIAL LEADS [QRS DEFLECTION < 1.0 mV IN CHEST LEADS] INCOMPLETE RIGHT BUNDLE BRANCH BLOCK [90+ ms QRS DURATION, TERMINAL R IN V1/V2, 40+ ms S IN I/aVL/V4/V5/V6] MODERATE ST DEPRESSION [0.05+ mV ST DEPRESSION] Compared to ECG 06/24/2023 10:38:22 Low QRS voltage now present Incomplete right bundle-branch block now present Supraventricular tachycardia no longer present Intraventricular conduction delay no longer present ST (T wave) deviation still present Electronically Signed On 06-24-2023 18:54:38 CDT by Nandini Zimmerman M.D. [id number]
[2023-06-24 13:37] LABS: Troponin 5 2HR 78.29 ng/L (0-15); Troponin 5 2HR Delta -2.71 ABS# (0-10)
[2023-06-24] MEDS: amiodarone 150 MG/100 ML PREMIX 400 MG IV (14:20)
--- NOTE | 2023-06-24 14:33 | PC.PHAR ---
pts daughter verified pts medications pts daughter brought in med list from [facility] and what ext med history shows has been filled recently-ext shows belsomra 5mg hs prn was suppose to replace ambien -pts daughter states the pt is back to taking ambien ext doesnt show when last filled- belsomra last filled 05/08/23 30d/[facility] no answer-pts daughter states the pt no longer takes divalproex dr 500mg bid or imdur er 30mg daily-notes are made in the pharmacy comments
[2023-06-24] MEDS: metoprolol tartrate 1 mg/1 mL SDV 5 mL 2.5 MG IVP (14:44)
[2023-06-24] MEDS: metoprolol tartrate 50 mg Tablet 75 MG PO (14:45)
[2023-06-24] MEDS: metoprolol tartrate 25 mg Tablet PO (16:12)
--- NOTE | 2023-06-24 16:14 | PC.NURSE ---
75 mg of Metoprolol ordered for pt (2 tab/100mg total). 1 tab contaminated and wasted by this nurse, 50mg (x1 tab) administered to pt. pt recieved total of 75mg (x1.5 tab) Metoprolol PO total.
--- NOTE | 2023-06-24 16:36 | P.HP_ITS ---
Providers/Chief Complaint 2 Primary Care Provider: Igor Aguilera Chief Complaint: Chest Pain, SOB History of Present Illness Dajuan Presley is a 77 year old male presented with palpitations, left-sided chest pain, found to have tachycardia, A-fib with RVR, heart rates in 120s. He had missed some of his metoprolol. In ER he did not respond to Cardizem infusion, started on amiodarone drip, resumed on oral metoprolol. Received small dose push of metoprolol. Chest pain is sharp/stabbing, left-sided, not related to moving, sometimes worse with deep breath, does have dyspnea but states that this is a chronic issue. Denies any hemoptysis. Chronic lower extremity edema. Had an episode of vomiting this morning. Review of Systems 2 Const: Denies: fever(s), chills, body aches or malaise ENMT: Denies: throat pain Card: Reports: edema; Denies: chest pain, pre-syncope or dyspnea on exertion Resp: Reports: dyspnea; Denies: productive cough, change in phlegm color or hemoptysis GI: Reports: vomiting; Denies: abdominal pain, nausea, diarrhea, constipation, hematochezia or melena : Denies: flank pain, difficulty urinating, urinary frequency or hematuria Musc: Denies: back pain, joint swelling or joint redness Skin/Breast: Denies: rash or new lesions Neuro: Denies: headache(s), numbness in extremities, weakness in extremities, dizziness, confusion or seizure-like activity Medications/Allergies Home Medications Medication Instructions Recorded Confirmed Last Taken Type albuterol sulfate 90 mcg/actuation 2 puff inhalation Q6H PRN 05/04/19 06/24/23 11/11/21 07:15 History aerosol inhaler (ProAir HFA) Shortness Of Breath Or Wheezing tamsulosin 0.4 mg capsule 0.4 mg PO BEDTIME 05/04/19 06/24/23 06/23/23 History oxycodone 15 mg tablet 15 mg PO Q6H PRN Pain 08/03/20 06/24/23 06/23/23 History potassium chloride 10 mEq 30 meq PO BID 06/21/21 06/24/23 06/24/23 History capsule,extended release fiutscrbkn-sajguahiilgmb-cdagaovg 1 tab PO Q6H PRN Headache 07/22/21 06/24/23 07/22/21 History 50 mg-325 mg-40 mg tablet lisinopril 40 mg tablet 40 mg PO QAM 11/06/21 06/24/23 06/24/23 History nitroglycerin 0.4 mg sublingual 0.4 mg sublingual Q5M PRN chest 11/06/21 06/24/23 Unknown Rx tablet (Nitrostat) pain #25 tabs budesonide-formoterol HFA 160 2 puff inhalation BID 11/26/22 06/24/23 02/01/23 History mcg-4.5 mcg/actuation aerosol inhaler celecoxib 200 mg capsule (Celebrex) 200 mg PO BID 11/26/22 06/24/23 06/24/23 History omeprazole 20 mg capsule,delayed 20 mg PO QAM 12/01/22 06/24/23 06/24/23 History release cholecalciferol (vitamin D3) 25 25 mcg PO DAILY 02/01/23 06/24/23 02/01/23 History mcg (1,000 unit) tablet (Vitamin D3) vit C 250 mg-vit E 90 mg-zinc 40 1 tab PO BID 02/01/23 06/24/23 06/24/23 History mg-copper 1 cw-utbwcb-frwrwr capsule (PreserVision AREDS-2) duloxetine 30 mg capsule,delayed 30 mg PO QAM 04/09/23 06/24/23 06/24/23 History release hydralazine 100 mg tablet 100 mg PO TID #270 tabs 06/09/23 06/24/23 06/24/23 Rx metoprolol tartrate 75 mg tablet 75 mg PO BID #90 tabs 06/17/23 06/24/23 06/24/23 Rx acetaminophen 650 mg 650 mg PO Q6H PRN Pain 06/24/23 06/24/23 Unknown History tablet,extended release albuterol sulfate 2.5 mg/3 mL 2.5 mg inhalation Q4H PRN 06/24/23 06/24/23 Unknown History (0.083 %) solution for nebulization Shortness Of Breath amlodipine 5 mg tablet 5 mg PO QAM 06/24/23 06/24/23 06/24/23 History aspirin 81 mg tablet,delayed 81 mg PO QAM 06/24/23 06/24/23 06/24/23 History release bupropion HCl 300 mg 24 hr tablet, 300 mg PO QAM 06/24/23 06/24/23 06/24/23 History extended release furosemide 20 mg tablet See Rx Instructions .Route .COMPLEX 06/24/23 06/24/23 06/24/23 History 20 mg ipratropium 0.5 mg-albuterol 3 mg 3 ml inhalation Q6H PRN Shortness 06/24/23 06/24/23 Unknown History (2.5 mg base)/3 mL nebulization Of Breath soln ketoconazole 2 % shampoo See Rx Instructions .Route .COMPLEX 06/24/23 06/24/23 Unknown History magnesium oxide 400 mg PO QAM 06/24/23 06/24/23 06/24/23 History mirabegron 25 mg tablet,extended 25 mg PO QAM 06/24/23 06/24/23 06/24/23 History release 24 hr (Myrbetriq) ondansetron 4 mg disintegrating 4 mg PO Q8H PRN Nausea And Vomiting 06/24/23 06/24/23 Unknown History tablet rizatriptan 10 mg disintegrating See Rx Instructions .Route .COMPLEX 06/24/23 06/24/23 Unknown History tablet zolpidem 6.25 mg tablet,extended 6.25 mg PO BEDTIME 06/24/23 06/24/23 Unknown History release,multiphase (Ambien CR) Allergies Allergy/AdvReac Type Severity Reaction Status Date / Time pentazocine [From Talwin] Allergy Unknown Unknown Verified 06/24/23 10:45 PFSH Acute 2 PFSH: Medical History Dyslipidemia Subdural hematoma BPH (benign prostatic hyperplasia) Lower urinary tract symptoms (LUTS) Arthritis Chronic migraine Chronic kidney disease BPH (benign prostatic hyperplasia) History of TIA (transient ischemic attack) ASHD (arteriosclerotic heart disease) CHF (congestive heart failure) HTN (hypertension) Surgical History Hx of CABG H/O craniotomy Previous back surgery S/P knee replacement S/P shoulder surgery S/P carpal tunnel release Family History Mother , AT AGE 76 BRAIN ANEURYSM No problems noted. Father , AT AGE 84 SIDE SAWYER,HEART DISEASE Cancer PROSTATE CAD (coronary artery disease) Social History Smoking and tobacco/nicotine status: former use of tobacco/nicotine Alcohol intake: unknown Substance/Drug Use: unknown Adopted: No Caregiver/support person: No Lives independently: Yes Marital status: / Current occupational status: retired Current gender identity: Male Vitals/I&O/Wt Last Vital Signs Temp 98.2 F 06/24/23 10:36 Pulse 106 H 06/24/23 14:45 BP 118/81 06/24/23 14:45 Pulse Ox 93 06/24/23 14:45 O2 Del Method Room Air 06/24/23 14:45 06/24/23 06/24/23 06/24/23 06:59 14:59 22:59 Intake Total 11.834 / 11.834 Balance 11.834 / 11.834 Weight last 48 hrs Weight 131.542 kg Physical Exam 2 Narrative: Accompanied by family member Const: COMMON NORMALS: patient oriented x3 and alert GENERAL APPEARANCE: c ooperative NUTRITIONAL APPEARANCE: obese ORIENTATION/CONSCIOUSNESS: Yes awake HENMT: COMMON NORMALS: oropharynx normal Neck/C-Spine: COMMON NORMALS: no JVD Resp: COMMON NORMALS: normal respiratory effort and clear to auscultation bilaterally AUSCULTATION: clear to auscultation bilaterally Cardio: COMMON NORMALS: no JVD, regular rhythm, S1 normal heart sound present, S2 normal heart sound present and No murmurs present (Cardio) RATE: t achycardic RHYTHM: abnormal rhythm irregularly irregular HEART SOUNDS: S1 normal heart sound present and S2 normal heart sound present GI: COMMON NORMALS: Normal to inspection, nondistended, normoactive bowel sounds present, Soft to palpation and non-tender PALPATION: Yes Soft to palpation Extremity: COMMON NORMALS: no joint enlargement GENERAL: Yes edema (1+) Neuro: COMMON NORMALS: patient oriented x3 and moves all extremities S ENSORIUM/ORIENTATION: Yes alert Skin: COMMON NORMALS: no rashes or lesions noted GENERAL SKIN EXAM: no rashes or lesions noted Data 06/24/23 11:00 06/24/23 11:00 A&P Assessment and plan (1) Atrial fibrillation with RVR: A-fib with RVR, heart rates in 120s. Complicated by left-sided chest pain, possibly cardiac demand ischemia versus NSTEMI. Also with dyspnea, lower extremity chronic edema, possible PE. Reviewed vitals, CBC, CMP, UA, chest x-ray, EKG, troponin, ER provider note, discussed with ER provider. EKG with AFib, no obvious acute AL on my interpretation. Pending official read. Did not respond to Cardizem drip. Started on amiodarone. Continue. Received IV metoprolol. Will resume his home dose metoprolol. Risk of hypotension, bradycardia with kacy ghazala treatment, combination of cardizem and metoprolol. Monitor on telemetry. He is not on anticoagulation due to prior complication with anticoagulation with intracranial hemorrhage. (2) Chest pain: Complete troponin EKG series. Monitor on telemetry. Assess for possible NSTEMI. Process Limited echocardiogram, electrocardiogram from January reviewed. Also had a stress test back in January without evidence of ischemia at that time. Normal ejection fraction. Discussed with patient and his sometime stress test may be less than 10% of cases falsely negative. Nitroglycerin as needed. Monitor symptoms. Additional dyspnea, chronic lower extremity edema, will assess D-dimer, case abnormal discussed consideration of additional assessment with CT angiogram, although may be at risk of kidney injury as discussed with contrast dye. Has had a contrast-enhanced CT in the past without complications. Plan OLLIE on CKD: Somewhat worse kidney function noted creatinine of 12.6. Hold lisinopril for now. 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 HTN: Has been on Cardizem drip, currently started amiodarone drip, received small dose IV metoprolol, resumed on home dose metoprolol. Hold off amlodipine for now. Attestations 2 Medical Necessity Statement*: Place in observation for additional assessment management of A-fib with RVR, left side chest pain, possible NSTEMI, assess for possible PE. and High MDM includes amount and/or complexity of data reviewed/ordered [ previous or external records, resulted lab(s)/test(s), ordered lab(s)/test(s), independent test interpretation and other healthcare professional discussion] and described risk of complication, morbidity or mortality of management as documented Diagnoses Atrial fibrillation with RVR I48.91 Chest pain R07.9
--- NOTE | 2023-06-24 16:43 | ECG_ITS ---
[facility] Test Date: 2023-06-24 Pat Name: Dajuan Presley Department: Room: Gender: Male Director Of Distance Learning: : 1945 Requested By: Sami Solitario Order Number: [id number] Stevie MD: Nandini Zimmerman M.D. Measurements Intervals [place] Rate: 88 P: 0 [place]: 0 QRS: -13 QRSD: 125 T: 52 QT: 379 QTc: 460 Interpretive Statements ATRIAL FIBRILLATION POSSIBLE RIGHT VENTRICULAR CONDUCTION DELAY [RSR (QR) IN V1/V2] ABNORMAL RHYTHM ECG Compared to ECG 06/24/2023 13:00:00 Atrial flutter no longer present Incomplete right bundle-branch block no longer present ST (T wave) deviation no longer present Electronically Signed On 06-24-2023 18:57:43 CDT by Nandini Zimmerman M.D. [id number]
--- NOTE | 2023-06-24 17:56 | USR_ITS ---
PROCEDURE INFORMATION: Exam: US Duplex Lower Extremity Veins, Bilateral Exam date and time: 06/24/2023 6:24 PM Age: 77 years old Clinical indication: Edema, localized; Lower extremity, bilateral; Patient HX: Chronic ble 2+ pitting edema and gaiter zone pigmentation. No history of dvt per patient. ; Additional info: Assessfor dvt TECHNIQUE: Imaging protocol: Real-time duplex ultrasound of the bilateral extremities with 2-D chaparro scale, color Doppler flow and spectral waveform analysis including responses to compression and other maneuvers (when performed) with image documentation. Complete exam focused on the lower extremity veins. COMPARISON: No relevant prior studies available. FINDINGS: Right deep veins: Unremarkable. The common femoral, femoral, proximal profunda femoral and popliteal veins are patent without thrombus. Normal Doppler waveforms. Normal compressibility and/or augmentation response. Left deep veins: Unremarkable. The common femoral, femoral, proximal profunda femoral and popliteal veins are patent without thrombus. Normal Doppler waveforms. Normal compressibility and/or augmentation response. Superficial veins: Greater saphenous veins at the saphenofemoral junctions are patent bilaterally without thrombus. Soft tissues: Unremarkable. US/[id number] IMPRESSION: No evidence of deep vein thrombosis.
--- NOTE | 2023-06-24 17:56 | USCV_ITS ---
Dajuan Presley Age: 77 Gender: M : 1945 Exam Date: 06/24/2023 18:47 Ordering Phys: Hossein Ledezma MD Technologist: MAYI Exam Location: [facility] [place] Indication: chest pain, SOB x 3 days, history of atrial fibrillation. BP: 125 / 92 HR: 83 Rhythm: Other Technical Quality: Adequate with OPTISON MEASUREMENTS (Male / Female) Normal Values 2D ECHO LV Diastolic Diameter PLAX 4.2 cm 4.2 - 5.9 / 3.9 - 5.3 cm IVS Diastolic Thickness 2.3 cm 0.6 - 1.0 / 0.6 - 0.9 cm IVS Systolic Thickness 2.1 cm LVPW Diastolic Thickness 1.9 cm 0.6 - 1.0 / 0.6 - 0.9 cm LVPW Systolic Thickness 2.1 cm LVOT Diameter 2.3 cm LV Ejection Fraction 2D Teich 48.4 % LV Ejection Fraction MOD 2C 61.4 % LV Ejection Fraction 2C AL 60.4 % LA Diameter 4.1 cm LA Sys Volume AL 128.4 cm cubed LA Sys Volume Index AL 49.2 cm cubed/m squared Aorta at Sinotubular Diameter 3.4 cm IVC Diameter 1.5 cm M-MODE LA Ao Ratio MM 1.4 AV Cusp Separation MM 2.2 cm DOPPLER AV Peak Velocity 135.0 cm/s LVOT Peak Velocity 99.0 cm/s AV Area Cont Eq vti 3.5 cm squared AV Area Cont Eq pk 3.0 cm squared MV Peak Velocity 100.0 cm/s MV Area PHT 6.3 cm squared Mitral E to A Ratio 0.0 TV Peak E Velocity 37.0 cm/s PV Peak Velocity 84.0 cm/s FINDINGS Left Ventricle Study is poor and limited. Optison was used. The left ventricular size and function is likely normal. Wall motion disturbances are difficult to assess due to the limited views. The irregular rhythm prohibits diastolic evaluation. The ejection fraction is within normal range likely around 55 to 60%. Right Ventricle Normal right ventricular size and systolic function. Right Atrium The right atrium is normal in size. Left Atrium Mildly increased left atrial size. Mitral Valve Mitral valve not well visualized. Aortic Valve Aortic valve is probably normal in structure. There is no obvious aortic stenosis. There may be mild aortic insufficiency. Tricuspid Valve Tricuspid valve not well visualized. Pulmonic Valve Pulmonic valve not well visualized. Pericardium There is a small hemodynamically insignificant pericardial effusion. Aorta Normal ascending aorta dimension. IVC Inferior vena cava not visualized. CONCLUSIONS Study is poor and limited. Optison was used. The left ventricular size and function is likely normal. Wall motion disturbances are difficult to assess due to the limited views. The irregular rhythm prohibits diastolic evaluation. The ejection fraction is within normal range likely around 55 to 60%. Mildly increased left atrial size. Aortic valve is probably normal in structure. There is no obvious aortic stenosis. There may be mild aortic insufficiency. There is a small hemodynamically insignificant pericardial effusion. Previous study was done 4 months ago. There is no change. Dr. Winston Ríos MD (Electronically Signed) Final Date: 25 June 2023 07:47 S
[2023-06-24 18:12] LABS: Troponin 5 6HR 84.23 ng/L (0-15); Troponin 5 6HR Delta 3.23 ng/L (0-12)
[2023-06-24] MEDS: heparin 5,000 unit/mL INJ 1 mL 5000 UNIT SUBCUT (18:32)
[2023-06-24 18:52] LABS: D Dimer 0.75 ug/mLFEU (0-0.59)
[2023-06-24] MEDS: oxyCODONE 5 mg IR Tab/Cap 15 MG PO (19:59)
[2023-06-24] MEDS: hyDRALAzine 50 mg Tablet 100 MG PO (21:14)
[2023-06-24] MEDS: tamsulosin 0.4 mg Capsule 0.400000000000000022 MG PO (21:15)
--- NOTE | 2023-06-24 21:38 | PC.NURSE ---
Amalia was not running upon arrival of shift, called physician food and nutrition professor and he said to leave it off if heart rate was in normal range.
[2023-06-24] MEDS: ondansetron 2 mg/ML SDV 2 mL 4 MG IVP (22:57)
--- NOTE | 2023-06-24 23:20 | PC.NURSE ---
patient's home medication of ambien unavailable at this time. Informed Dr Badillo and received order to replace the [facility] formulary of Ambien 5mg PO PRN for insomnia.
[2023-06-24] MEDS: zolpidem 5 mg Tablet PO (23:28)
[2023-06-25] VITALS (14 sets, daily range): BP systolic 91–119; BP diastolic 53–77; PULSE 80–98; RESP 16–26; TEMP 36.6–37.1; O2SAT 90–98
[2023-06-25 03:26] LABS: Alanine Aminotransferase 11 U/L (0-41); Albumin Level 3.6 g/dL (3.5-5.2); Alkaline Phosphatase 101 U/L (40-130); Anion Gap 13.4 (5-19); Aspartate Amino Transferase 25 U/L (0-40); Blood Urea Nitrogen 23 mg/dL (8-23); Calcium 9.4 mg/dL (8.5-10.5); Carbon Dioxide 32 mmol/L (22-29); Chloride 101 mmol/L (98-107); Globulin 3.2 g/dL (1.3-4.6); Glucose 124 mg/dL (65-115); Magnesium 2.2 mg/dL (1.7-2.3); Osmolality Calculated 299 mOsm/kg (285-295); Potassium 4.4 mmol/L (3.5-5.1); Sodium 142 mmol/L (136-145); Total Bilirubin 0.2 mg/dL (0.15-1.2); Total Protein 6.8 g/dL (6.6-8.7)
[2023-06-25] MEDS: pantoprazole DR 40 mg Tablet PO (05:24)
[2023-06-25] MEDS: duloxetine 30 mg Capsule PO (05:24)
[2023-06-25] MEDS: aspirin 81 mg EC Tablet PO (05:24)
[2023-06-25] MEDS: lisinopril 20 mg Tablet 40 MG PO (05:24)
[2023-06-25] MEDS: heparin 5,000 unit/mL INJ 1 mL 5000 UNIT SUBCUT ×2 (05:24→18:25)
[2023-06-25] MEDS: hyDRALAzine 50 mg Tablet 100 MG PO (08:31)
[2023-06-25] MEDS: buPROPion XL (24 HR) 300 mg Tablet PO (08:31)
[2023-06-25] MEDS: metoprolol tartrate 50 mg Tablet 75 MG PO (08:31)
[2023-06-25] MEDS: perflutren protein-a microsphr 0.22 mg/mL SDV 3 mL IV (08:54)
[2023-06-25] MEDS: albuterol 2.5 mg/3 mL Neb INHALATION ×2 (09:25→19:31)
[2023-06-25] MEDS: oxyCODONE 5 mg IR Tab/Cap 15 MG PO (10:57)
[2023-06-25] MEDS: amiodarone 200 mg Tablet 400 MG PO ×2 (10:58→18:25)
[2023-06-25] MEDS: ondansetron 2 mg/ML SDV 2 mL 4 MG IVP (12:47)
[2023-06-25 12:50] LABS: Glucose Point of Care 130 mg/dL (70-110)
[2023-06-25] MEDS: FUROsemide 10 mg/mL SDV 4mL 40 MG IVP (14:19)
--- NOTE | 2023-06-25 15:17 | P.PN_ITS ---
Subjective 2 Subjective: He is still feeling short of breath. No chest pain today. Vitals/I&O/Wt Last Vital Signs Temp 98.3 F 06/25/23 12:00 Pulse 80 06/25/23 12:00 Resp 23 H 06/25/23 12:00 BP 98/71 06/25/23 12:00 Pulse Ox 90 06/25/23 12:00 O2 Del Method Room Air 06/25/23 12:00 O2 Flow Rate 2 06/25/23 09:00 06/25/23 06/25/23 06/25/23 06:59 14:59 22:59 Intake Total 307.166 / 742.773 757.227 / 757.227 Output Total 0 / 0 Balance 307.166 / 742.773 757.227 / 757.227 Weight last 48 hrs Weight 133.991 kg Weight 130.725 kg Weight 131.542 kg Physical Exam 2 Narrative: Accompanied by family member Const: COMMON NORMALS: patient oriented x3 and alert GENERAL APPEARANCE: c ooperative NUTRITIONAL APPEARANCE: obese ORIENTATION/CONSCIOUSNESS: Yes awake HENMT: COMMON NORMALS: oropharynx normal Neck/C-Spine: COMMON NORMALS: no JVD Resp: COMMON NORMALS: normal respiratory effort and clear to auscultation bilaterally AUSCULTATION: clear to auscultation bilaterally Cardio: COMMON NORMALS: no JVD, regular rhythm, S1 normal heart sound present, S2 normal heart sound present and No murmurs present (Cardio) RATE: t achycardic RHYTHM: regular rhythm and abnormal rhythm irregularly irregular HEART SOUNDS: S1 normal heart sound present and S2 normal heart sound present GI: COMMON NORMALS: Normal to inspection, nondistended, normoactive bowel sounds present, Soft to palpation and non-tender PALPATION: Yes Soft to palpation Extremity: COMMON NORMALS: no joint enlargement GENERAL: Yes edema (2+) Neuro: COMMON NORMALS: patient oriented x3 and moves all extremities S ENSORIUM/ORIENTATION: Yes alert Skin: COMMON NORMALS: no rashes or lesions noted GENERAL SKIN EXAM: no rashes or lesions noted Data 06/24/23 11:00 06/25/23 02:37 A&P Assessment and plan (1) Atrial fibrillation with RVR: Blood pressure low today, held hydralazine and dose of metoprolol. Discontinue lisinopril. Reviewed vitals, CMP. Reviewed reviewed echocardiogram results. Normal EF. Technically poor study. Minimal, nonhemodynamically significant pericardial effusion. Heart rates are better today, down into the 80s. Blood pressure soft. Had to stop lisinopril and holding hydralazine as well. Stop amiodarone drip. Switch to oral amiodarone. He initially wanted to be discharged this evening, however, noted to have very low urine output. Today creatinine is also increased. A-fib with RVR, heart rates in 120s. Complicated by left-sided chest pain, possibly cardiac demand ischemia versus NSTEMI. Also with dyspnea, lower extremity chronic edema, possible PE. Reviewed vitals, CBC, CMP, UA, chest x-ray, EKG, troponin, ER provider note, discussed with ER provider. EKG with AFib, no obvious acute WA on my interpretation. Pending official read. Did not respond to Cardizem drip. Started on amiodarone. Continue. Received IV metoprolol. Will resume his home dose metoprolol. Risk of hypotension, bradycardia with kacy ghazala treatment, combination of cardizem and metoprolol. Monitor on telemetry. He is not on anticoagulation due to prior complication with anticoagulation with intracranial hemorrhage. (2) OLLIE (acute kidney injury): Noted reduced urine output, anuria this afternoon, only to 28 mL in bladder scan. Assess additionally for possible acute renal failure with anuria, volume overload. Lasix challenge 40 mg IV. Did produce about 550 mL of urine. Hold lisinopril. No evidence of bladder outlet obstruction on bladder scan. Reviewed BUN, creatinine, creatinine up to 1.8. UA obtained, reviewed, unremarkable. Will add urine urea, urine creatinine. Monitor GENIE. Possibly ATN following NSAID use. Blood pressure is low today, held hydralazine. Held dose of metoprolol. Reviewed echocardiogram results. Normal ejection fraction. Reassess renal function. Consideration of possibly cardiorenal syndrome but less likely given normal EF. (3) Chest pain: Resolved. Suspect may have been related to A-fib with RVR. Reviewed D-dimer, unremarkable for his age, discussed with him and family member. Monitor on telemetry. Reviewed echocardiogram Also had a stress test back in January without evidence of ischemia at that time. Normal ejection fraction. Discussed with patient and his sometime stress test may be less than 10% of cases falsely negative. Nitroglycerin as needed. Monitor symptoms. Plan Decompensated diastolic CHF: He is still having dyspnea today, peripheral edema. On lung exam no signs of bronchitis. No sign of pneumonia on chest x-ray. D- dimer unremarkable for age. Suspect decompensated diastolic CHF following A-fib with RVR. Additionally with worsening OLLIE, possibly cardiorenal syndrome. 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 HTN: Has been on Cardizem drip, currently started amiodarone drip, received small dose IV metoprolol, resumed on home dose metoprolol. Hold off amlodipine for now. Attestations 2 Medical Necessity Statement*: Continue admission for assessment management of worsening OLLIE, low blood pressure after A-fib with RVR. and High MDM includes number and complexity of problems actively addressed during encounter and amount and/or complexity of data reviewed/ordered [ resulted lab(s)/test(s), ordered lab(s)/test(s) and other healthcare professional discussion] as documented Diagnoses Atrial fibrillation with RVR I48.91 OLLIE (acute kidney injury) N17.9 Chest pain R07.9
[2023-06-25 17:38] LABS: Add Urine Microscopic? NO; Charge for UA Resulting for Rev
[2023-06-25 18:00] LABS: Bilirubin Urine Neg (Negative); Blood Urine Neg (Negative); Glucose Urine UA Norm (Normal); Ketones Urine Negative (Negative); Leukocyte Esterase Urine Negative (Negative); Nitrate Urine Negative (Negative); Protein Urine Neg (Negative); Urine Appearance Clear (CLEAR); Urine Color Yellow (Yellow); Urobilinogen Urine Norm (Negative); pH Urine 5 (5-7)
--- NOTE | 2023-06-25 18:56 | PC.NURSE ---
Metoprolol held along with hydralazine due to patients blood pressure, physician notified.
[2023-06-25] MEDS: tamsulosin 0.4 mg Capsule 0.400000000000000022 MG PO (22:07)
[2023-06-26] VITALS (15 sets, daily range): BP systolic 93–133; BP diastolic 53–89; PULSE 75–110; RESP 15–24; TEMP 36.5–37.4; O2SAT 86–99
[2023-06-26 04:41] LABS: Alanine Aminotransferase 11 U/L (0-41); Albumin Level 3.5 g/dL (3.5-5.2); Alkaline Phosphatase 90 U/L (40-130); Aspartate Amino Transferase 24 U/L (0-40); Blood Urea Nitrogen 25 mg/dL (8-23); Calcium 9.2 mg/dL (8.5-10.5); Carbon Dioxide 37 mmol/L (22-29); Chloride 96 mmol/L (98-107); Globulin 2.9 g/dL (1.3-4.6); Glucose 115 mg/dL (65-115); Osmolality Calculated 293 mOsm/kg (285-295); Sodium 139 mmol/L (136-145); Total Bilirubin 0.3 mg/dL (0.15-1.2); Total Protein 6.4 g/dL (6.6-8.7)
[2023-06-26 04:43] LABS: Anion Gap 10.5 (5-19); Potassium 4.5 mmol/L (3.5-5.1)
[2023-06-26] MEDS: aspirin 81 mg EC Tablet PO (05:40)
[2023-06-26] MEDS: pantoprazole DR 40 mg Tablet PO (05:40)
[2023-06-26] MEDS: duloxetine 30 mg Capsule PO (05:40)
[2023-06-26] MEDS: heparin 5,000 unit/mL INJ 1 mL 5000 UNIT SUBCUT ×2 (05:40→17:38)
[2023-06-26] MEDS: ondansetron 2 mg/ML SDV 2 mL 4 MG IVP ×2 (05:58→13:16)
[2023-06-26 06:37] LABS: Glucose Point of Care 134 mg/dL (70-110)
[2023-06-26] MEDS: albuterol 2.5 mg/3 mL Neb INHALATION ×2 (07:38→13:47)
--- NOTE | 2023-06-26 08:59 | PC.CHAP ---
Pastoral Care Encounter/Spiritual Assessment Type of Contact [] Declined housing case manager visit [] Patient/Family/Request visit [] Outpatient visit [] Follow-up visit [] Physician referral [] Code/Alert [x] Routine visit [] Staff referral [] Actively dying [] Patient sleeping [] Family support [] [] Out of room [] Palliative care [] [] Receiving care in room [] Pre-surgical visit [] Trauma [] Long length of stay [] ICU visit [] Other: Relational/Emotional Strength [x] Patient feels connected with others/family/visitors/staff [] Distress [] Loneliness/isolation [] Abandonment Spirituality of Patient [x] Person of Kori [] Attends Zoroastrianism of their Kori [x] Believes in Prayer [] Reads Bible or Pentecostal materials [] There are Spiritual issues to be addressed Manager Learning Interventions [x] Prayer [x] Active listening [] Non-anxious presence [x] Spiritual/emotional support [] Crisis/trauma care [] Spiritual counseling [] Bereavement support [] Provided bereavement packet [] Provided Bible/devotional materials [] Provided toy/stuffed animal, coloring book to patient or family member [] Provided Communion [] Anointing/[place] [] Salvation [x] Completed spiritual assessment [] Other: Impact on Illness or Injury [] Angry [] Fearful [] Anxious [] Often cries [] Exhaustion [] Unable to work [] Unable to attend mu-ism [] Unable to walk/stand [] Unable to read [] Unable to drive [] Unable to eat/drink [] Unable to sleep [] Unable to be with family [] Patient intubated [] Other: Summary Time spent with patient 5 min
[2023-06-26] MEDS: metoprolol tartrate 50 mg Tablet 75 MG PO (09:06)
[2023-06-26] MEDS: amiodarone 200 mg Tablet 400 MG PO ×2 (09:06→17:38)
[2023-06-26] MEDS: buPROPion XL (24 HR) 300 mg Tablet PO (09:06)
--- NOTE | 2023-06-26 09:27 | PC.NURSE ---
Holding metoprolol per providers order due to low blood pressures.
[2023-06-26 09:29] LABS: Basophils % 0.4 %; Eosinophils # 0.4 10^3/uL (0.0-0.8); Eosinophils % 4.6 %; Hematocrit 41.2 % (37-53); Lymphocytes % 26.8 %; Mean Corpuscular HGB Conc 31.3 g/dL (30-55); Mean Corpuscular Hemoglobin 33.4 pg (27-33); Mean Corpuscular Volume 106.7 fl (82-101); Mean Platelet Volume 12.2 fL (7.4-10.4); Monocytes # 0.7 10^3/uL (0.2-0.9); Monocytes % 9.8 %; Neutrophils # 4.37 10^3/uL (1.8-7.7); Neutrophils % 58.1 %; Nucleated Red Blood Cells % 0 %; Platelet Count 123 10^3/cmm (157-399); Red Blood Count 3.86 10^6/uL (3.85-5.65); Red Cell Distribution Width 13.6 % (12.1-15.1); White Blood Count 7.53 10^3/uL (3.29-11.43)
[2023-06-26] MEDS: albumin 25 G/100 ML BAG 60 G IV (10:35)
--- NOTE | 2023-06-26 12:02 | PC.SOCIAL ---
Pg 2 IMM Explained to pt Pg 2 IMM. No questions voiced. Provided pt a copy. Initialed, dated, & timed a copy & placed in chart.
[2023-06-26] MEDS: oxyCODONE 5 mg IR Tab/Cap 15 MG PO (13:16)
[2023-06-26] MEDS: bisacodyl 10 mg Supp PR (15:50)
[2023-06-26] MEDS: FUROsemide 10 mg/mL SDV 2mL 20 MG IVP (16:45)
[2023-06-26] MEDS: polyethylene glycol 3350 Pkt 17 gm PO (17:39)
[2023-06-26] MEDS: tamsulosin 0.4 mg Capsule 0.400000000000000022 MG PO (20:14)
[2023-06-26] MEDS: zolpidem 5 mg Tablet PO (20:14)
--- NOTE | 2023-06-26 22:34 | P.PN_ITS ---
Subjective 2 Subjective: Today he is having a headache. He has been having some nausea, poor appetite. Vitals/I&O/Wt Last Vital Signs Temp 98.3 F 06/26/23 20:00 Pulse 97 06/26/23 20:00 Resp 20 H 06/26/23 20:00 BP 129/89 06/26/23 20:00 Pulse Ox 98 06/26/23 20:00 O2 Del Method Nasal Cannula 06/26/23 13:44 O2 Flow Rate 3 06/26/23 13:44 06/26/23 06/26/23 06/26/23 06:59 14:59 22:59 Intake Total 250 / 1127.227 340 / 340 Output Total 250 / 250 Balance 250 / 577.227 340 / 340 -250 / 90 Weight last 48 hrs Weight 136.849 kg Weight 133.991 kg Weight 130.725 kg Physical Exam 2 Narrative: Accompanied by family member Const: COMMON NORMALS: patient oriented x3 and alert GENERAL APPEARANCE: c ooperative NUTRITIONAL APPEARANCE: obese ORIENTATION/CONSCIOUSNESS: Yes awake HENMT: COMMON NORMALS: oropharynx normal Neck/C-Spine: COMMON NORMALS: no JVD Resp: COMMON NORMALS: normal respiratory effort and clear to auscultation bilaterally AUSCULTATION: clear to auscultation bilaterally Cardio: COMMON NORMALS: no JVD, regular rhythm, S1 normal heart sound present, S2 normal heart sound present and No murmurs present (Cardio) RATE: t achycardic RHYTHM: regular rhythm and abnormal rhythm irregularly irregular HEART SOUNDS: S1 normal heart sound present and S2 normal heart sound present GI: COMMON NORMALS: Normal to inspection, nondistended, normoactive bowel sounds present, Soft to palpation and non-tender PALPATION: Yes Soft to palpation Extremity: COMMON NORMALS: no joint enlargement GENERAL: Yes edema (2+) Neuro: COMMON NORMALS: patient oriented x3 and moves all extremities S ENSORIUM/ORIENTATION: Yes alert Skin: COMMON NORMALS: no rashes or lesions noted GENERAL SKIN EXAM: no rashes or lesions noted Data 06/26/23 03:14 06/26/23 03:14 A&P Assessment and plan (1) CHF (congestive heart failure): Decompensated diastolic CHF. Blood pressure was too low yesterday to try to attempt diuresis. Had to stop his hydralazine, metoprolol. Today blood pressure still low in the morning but in the afternoon appears to be improving. Discussed with him and family, given dose of IV Lasix as he is still having dyspnea. Reviewed vitals, CBC, CMP. Recheck CMP with risk of electrolyte abnormality, renal dysfunction with IV Lasix. He also reports having some chest pressure. Will check EKG and troponin. Discussed with case management assistant. Suspect decompensated diastolic CHF following A-fib with RVR. Additionally with worsening OLLIE, possibly cardiorenal syndrome. Qualifiers: Heart failure type: diastolic Heart failure chronicity: acute on chronic Qualified Code(s): I50.33 - Acute on chronic diastolic (congestive) heart failure (2) Atrial fibrillation with RVR: Continue amiodarone. Monitor blood pressure. If maintaining blood pressure consider resumption of metoprolol. Blood pressure low today, held hydralazine and dose of metoprolol. Discontinue lisinopril. Reviewed vitals, CMP. Reviewed reviewed echocardiogram results. Normal EF. Technically poor study. Minimal, nonhemodynamically significant pericardial effusion. Heart rates are better today, down into the 80s. Blood pressure soft. Had to stop lisinopril and holding hydralazine as well. Stop amiodarone drip. Switch to oral amiodarone. He initially wanted to be discharged this evening, however, noted to have very low urine output. Today creatinine is also increased. A-fib with RVR, heart rates in 120s. Complicated by left-sided chest pain, possibly cardiac demand ischemia versus NSTEMI. Also with dyspnea, lower extremity chronic edema, possible PE. Reviewed vitals, CBC, CMP, UA, chest x-ray, EKG, troponin, ER provider note, discussed with ER provider. EKG with AFib, no obvious acute PR on my interpretation. Pending official read. Did not respond to Cardizem drip. Started on amiodarone. Continue. Received IV metoprolol. Will resume his home dose metoprolol. Risk of hypotension, bradycardia with kacy ghazala treatment, combination of cardizem and metoprolol. Monitor on telemetry. He is not on anticoagulation due to prior complication with anticoagulation with intracranial hemorrhage. (3) OLLIE (acute kidney injury): Reviewed BUN, creatinine, potassium, anion gap, bicarb. He is producing a small amount of urine. Discussed with him and family giving additional dose of 20 mg IV Lasix. Recheck the above parameters. Possibly ATN following NSAID use with celecoxib. Hold lisinopril. Noted reduced urine output, anuria this afternoon, only to 28 mL in bladder scan. Assess additionally for possible acute renal failure with anuria, volume overload. Lasix challenge 40 mg IV. Did produce about 550 mL of urine. Hold lisinopril. No evidence of bladder outlet obstruction on bladder scan. Reviewed BUN, creatinine, creatinine up to 1.8. UA obtained, reviewed, unremarkable. Will add urine urea, urine creatinine. Monitor GENIE. Possibly ATN following NSAID use. Blood pressure is low today, held hydralazine. Held dose of metoprolol. Reviewed echocardiogram results. Normal ejection fraction. Reassess renal function. Consideration of possibly cardiorenal syndrome but less likely given normal EF. (4) Chest pain: Chest pain resolved but still having some chest pressure today, dyspnea, will obtain additional EKG, troponin level. Resolved. Suspect may have been related to A-fib with RVR. Reviewed D-dimer, unremarkable for his age, discussed with him and family member. Monitor on telemetry. Reviewed echocardiogram Also had a stress test back in January without evidence of ischemia at that time. Normal ejection fraction. Discussed with patient and his sometime stress test may be less than 10% of cases falsely negative. Nitroglycerin as needed. Monitor symptoms. Plan Headache: Pending headache, nausea, poor appetite, will check respiratory viral panel. 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 HTN: Has been on Cardizem drip, currently started amiodarone drip, received small dose IV metoprolol, resumed on home dose metoprolol. Hold off amlodipine for now. Attestations 2 Medical Necessity Statement*: Continue admission for assessment management of worsening OLLIE, low blood pressure after A-fib with RVR. and High MDM includes amount and/or complexity of data reviewed/ordered [ resulted lab(s)/test(s), ordered lab(s)/test(s) and other healthcare professional discussion] and described risk of complication, morbidity or mortality of management as documented Diagnoses Acute on chronic diastolic congestive heart failure I50.33 Heart failure type: diastolic Heart failure chronicity: acute on chronic Atrial fibrillation with RVR I48.91 OLLIE (acute kidney injury) N17.9 Chest pain R07.9
[2023-06-27] VITALS (11 sets, daily range): BP systolic 108–138; BP diastolic 74–91; PULSE 86–114; RESP 16–27; TEMP 36.8–37; O2SAT 94–100
[2023-06-27 00:11] LABS: Troponin T (5th) Once 81 ng/L (0-15)
[2023-06-27 02:18] LABS: Adenovirus Not Detected (NOT DETECT); Chlamydia Pneumoniae Not Detected (NOT DETECT); Coronavirus 229E,HKU1,NL63,OC4 Not Detected (NOT DETECT); Human Metapneumovirus Not Detected (NOT DETECT); Human Rhinovirus/Enterovirus Not Detected (NOT DETECT); Influenza A Not Detected (NOT DETECT); Influenza A H1 Not Detected (NOT DETECT); Influenza A H1-2009 Not Detected (NOT DETECT); Influenza A H3 Not Detected (NOT DETECT); Influenza B Not Detected (NOT DETECT); Mycoplasma Pneumoniae Not Detected (NOT DETECT); Parainfluenza Virus Type 1 Not Detected (NOT DETECT); Parainfluenza Virus Type 2 Not Detected (NOT DETECT); Parainfluenza Virus Type 3 Not Detected (NOT DETECT); Parainfluenza Virus Type 4 Not Detected (NOT DETECT); Respiratory Syncytial Virus A Not Detected (NOT DETECT); Respiratory Syncytial Virus B Not Detected (NOT DETECT); SARS-COV-2 Not Detected (NOT DETECT)
[2023-06-27] MEDS: heparin 5,000 unit/mL INJ 1 mL 5000 UNIT SUBCUT ×2 (06:08→18:23)
[2023-06-27] MEDS: pantoprazole DR 40 mg Tablet PO (06:08)
[2023-06-27] MEDS: aspirin 81 mg EC Tablet PO (06:08)
[2023-06-27] MEDS: duloxetine 30 mg Capsule PO (06:08)
[2023-06-27 06:23] LABS: Glucose Point of Care 126 mg/dL (70-110)
[2023-06-27] MEDS: albuterol 2.5 mg/3 mL Neb INHALATION ×2 (08:16→22:51)
[2023-06-27] MEDS: amiodarone 200 mg Tablet 400 MG PO (09:02)
[2023-06-27] MEDS: polyethylene glycol 3350 Pkt 17 gm PO ×2 (09:02→18:23)
[2023-06-27] MEDS: ondansetron 2 mg/ML SDV 2 mL 4 MG IVP (09:02)
[2023-06-27] MEDS: buPROPion XL (24 HR) 300 mg Tablet PO (09:02)
[2023-06-27 09:03] LABS: Basophils % 0.3 %; Eosinophils # 0.1 10^3/uL (0.0-0.8); Eosinophils % 1.3 %; Hematocrit 38.6 % (37-53); Lymphocytes # 1.6 10^3/uL (0.8-4.8); Lymphocytes % 20.1 %; Mean Corpuscular HGB Conc 31.9 g/dL (30-55); Mean Corpuscular Hemoglobin 33.7 pg (27-33); Mean Corpuscular Volume 105.8 fl (82-101); Mean Platelet Volume 11.9 fL (7.4-10.4); Monocytes # 0.9 10^3/uL (0.2-0.9); Monocytes % 11.5 %; Neutrophils # 5.12 10^3/uL (1.8-7.7); Neutrophils % 66.4 %; Nucleated Red Blood Cells % 0 %; Platelet Count 115 10^3/cmm (157-399); Red Blood Count 3.65 10^6/uL (3.85-5.65); Red Cell Distribution Width 13.2 % (12.1-15.1); White Blood Count 7.71 10^3/uL (3.29-11.43)
[2023-06-27 09:19] LABS: Alanine Aminotransferase 11 U/L (0-41); Albumin Level 3.7 g/dL (3.5-5.2); Alkaline Phosphatase 84 U/L (40-130); Aspartate Amino Transferase 26 U/L (0-40); Blood Urea Nitrogen 23 mg/dL (8-23); Calcium 9.2 mg/dL (8.5-10.5); Carbon Dioxide 35 mmol/L (22-29); Chloride 97 mmol/L (98-107); Glucose 118 mg/dL (65-115); Osmolality Calculated 295 mOsm/kg (285-295); Sodium 140 mmol/L (136-145); Total Bilirubin 0.5 mg/dL (0.15-1.2); Total Protein 6.7 g/dL (6.6-8.7)
[2023-06-27 09:29] LABS: Anion Gap 12.3 (5-19); Potassium 4.3 mmol/L (3.5-5.1)
--- NOTE | 2023-06-27 10:47 | PM.CONSULT ---
Providers/Reason For Consult Consulting Physician/Specialty*: HAYDEE Zimmermna MD/cardiology Reason for Consult*: Patient with symptomatic atrial fibrillation and congestive heart failure Requesting Physician: Dr. Ledezma Attending Physician: Hossein Ledezma Primary Care Provider: Igor Aguilera History of Present Illness History of Present Illness Dajuan Presley is a 77 year old male with a history of nonobstructive coronary artery disease, congestive heart failure, atrial fibrillation, high blood pressure is present with complaints of chest discomfort progressive shortness of breath and leg swelling. The patient is a very poor historian. He does not recall any details. He wanted me to ask his daughter was present in the room to get the details. Apparently the daughter has been taking care of him for the last 2 and half years. This patient is known to have atrial fibrillation. He was cardioverted in July 2020 and was placed on Xarelto and amiodarone. In September 2020, he presented with a intracranial bleed. He had a surgical evacuation of the hematoma in [place]. He was taken off the oral anticoagulant. In January 2021, he presented with a symptomatic bradycardia. At that time, the dose of the amiodarone was cut back to 100 mg. He continued to be bradycardic. For that reason, he was taken off the amiodarone. The metoprolol dose also was cut back. Finally the metoprolol also had to be taken out for the bradycardia. He was not on any medications for for the atrial fibrillation for a while. Then he was gradually restarted on metoprolol. He was taking the metoprolol 75 mg p.o. twice daily at the time of the hospital admission. He was started on amiodarone. He continues to be in atrial fibrillation but with controlled ventricular response rate. Cardiology consult is requested to evaluate for further options. According to the patient's daughter, for the last 1 year, he has not been ambulating much. He might have gained around 30 pounds. As he gets up and move around, his heart starts pounding which make him weak and tired. No fever, chills or cough. No abdominal pain or dysuria. He has been noticing some swelling of the extremities. He was taking diuretics at home. But since he had difficulty in getting to the bathroom fast enough, was limiting his intake. Review of Systems Narrative: CONSTITUTIONAL: No fever or chills. [] EYES: No blurring of vision or other visual disturbances lately. [] ENT: No hoarseness of voice, auditory disturbances or sore throat. [] CARDIOVASCULAR: As mentioned above. [] RESPIRATORY: No significant cough. [] GASTROINTESTINAL: No hematemesis or melena. [] GENITOURINARY: No dysuria or hematuria. [] INTEGUMENTARY: No skin rashes or history of skin cancer. [] NEURO: No transient ischemic attacks or amaurosis. [] PSYCHIATRIC: No history of psychosis or major depression. [] HEMATOLOGIC: No bleeding disorders or significant anemia. [] ENDOCRINE: No history of polyuria or polydipsia. [] MUSCULOSKELETAL: No recent joint pain or swelling. [] ALLERGY/IMMUNOLOGY: As mentioned above. [] Medications/Allergies Home Medications Medication Instructions Recorded Confirmed Last Taken Type albuterol sulfate 90 mcg/actuation 2 puff inhalation Q6H PRN 05/04/19 06/24/23 11/11/21 07:15 History aerosol inhaler (ProAir HFA) Shortness Of Breath Or Wheezing tamsulosin 0.4 mg capsule 0.4 mg PO BEDTIME 05/04/19 06/24/23 06/23/23 History oxycodone 15 mg tablet 15 mg PO Q6H PRN Pain 08/03/20 06/24/23 06/23/23 History potassium chloride 10 mEq 30 meq PO BID 06/21/21 06/24/23 06/24/23 History capsule,extended release [id number] 1 tab PO Q6H PRN Headache 07/22/21 06/24/23 07/22/21 History 50 mg-325 mg-40 mg tablet lisinopril 40 mg tablet 40 mg PO QAM 11/06/21 06/24/23 06/24/23 History nitroglycerin 0.4 mg sublingual 0.4 mg sublingual Q5M PRN chest 11/06/21 06/24/23 Unknown Rx tablet (Nitrostat) pain #25 tabs budesonide-formoterol HFA 160 2 puff inhalation BID 11/26/22 06/24/23 02/01/23 History mcg-4.5 mcg/actuation aerosol inhaler celecoxib 200 mg capsule (Celebrex) 200 mg PO BID 11/26/22 06/24/23 06/24/23 History omeprazole 20 mg capsule,delayed 20 mg PO QAM 12/01/22 06/24/23 06/24/23 History release cholecalciferol (vitamin D3) 25 25 mcg PO DAILY 02/01/23 06/24/23 02/01/23 History mcg (1,000 unit) tablet (Vitamin D3) vit C 250 mg-vit E 90 mg-zinc 40 1 tab PO BID 02/01/23 06/24/23 06/24/23 History mg-copper 1 [id number] capsule (PreserVision AREDS-2) duloxetine 30 mg capsule,delayed 30 mg PO QAM 04/09/23 06/24/23 06/24/23 History release hydralazine 100 mg tablet 100 mg PO TID #270 tabs 06/09/23 06/24/23 06/24/23 Rx metoprolol tartrate 75 mg tablet 75 mg PO BID #90 tabs 06/17/23 06/24/23 06/24/23 Rx acetaminophen 650 mg 650 mg PO Q6H PRN Pain 06/24/23 06/24/23 Unknown History tablet,extended release albuterol sulfate 2.5 mg/3 mL 2.5 mg inhalation Q4H PRN 06/24/23 06/24/23 Unknown History (0.083 %) solution for nebulization Shortness Of Breath amlodipine 5 mg tablet 5 mg PO QAM 06/24/23 06/24/23 06/24/23 History aspirin 81 mg tablet,delayed 81 mg PO QAM 06/24/23 06/24/23 06/24/23 History release bupropion HCl 300 mg 24 hr tablet, 300 mg PO QAM 06/24/23 06/24/23 06/24/23 History extended release furosemide 20 mg tablet See Rx Instructions .Route .COMPLEX 06/24/23 06/24/23 06/24/23 History 20 mg ipratropium 0.5 mg-albuterol 3 mg 3 ml inhalation Q6H PRN Shortness 06/24/23 06/24/23 Unknown History (2.5 mg base)/3 mL nebulization Of Breath soln ketoconazole 2 % shampoo See Rx Instructions .Route .COMPLEX 06/24/23 06/24/23 Unknown History magnesium oxide 400 mg PO QAM 06/24/23 06/24/23 06/24/23 History mirabegron 25 mg tablet,extended 25 mg PO QAM 06/24/23 06/24/23 06/24/23 History release 24 hr (Myrbetriq) ondansetron 4 mg disintegrating 4 mg PO Q8H PRN Nausea And Vomiting 06/24/23 06/24/23 Unknown History tablet rizatriptan 10 mg disintegrating See Rx Instructions .Route .COMPLEX 06/24/23 06/24/23 Unknown History tablet zolpidem 6.25 mg tablet,extended 6.25 mg PO BEDTIME 06/24/23 06/24/23 Unknown History release,multiphase (Samir OLSEN) Allergies Allergy/AdvReac Type Severity Reaction Status Date / Time pentazocine [From [facility]] Allergy Unknown Unknown Verified 06/24/23 10:45 omnicef AdvReac Intermediate ADR-Vomitin Uncoded 06/24/23 18:20 g Current Medications Generic Name Dose Route Start Last Admin Trade Name Freq PRN Reason Stop Dose Admin Albuterol Sulfate 2.5 mg 06/24/23 17:56 06/27/23 08:16 Albuterol 2.5 Mg/3 Ml Neb INHALATION 2.5 mg Q4H PRN Administration Shortness Of Breath Amiodarone HCl 400 mg 06/25/23 09:25 06/27/23 09:02 Amiodarone 200 Mg Tablet PO 400 mg BID GENESIS Administration Aspirin 81 mg 06/25/23 06:00 06/27/23 06:08 Aspirin 81 Mg Ec Tablet PO 81 mg QAM GENESIS Administration Bisacodyl 10 mg 06/26/23 13:05 06/26/23 15:50 Bisacodyl [address] 10 mg DAILY PRN Administration CONSTIPATION Bupropion HCl 300 mg 06/25/23 09:00 06/27/23 09:02 Bupropion Xl (24 Hr) 300 Mg Tablet PO 300 mg DAILY GENESIS Administration Duloxetine HCl 30 mg 06/25/23 06:00 06/27/23 06:08 Duloxetine 30 Mg Capsule PO 30 mg QAM GENESIS Administration Heparin Sodium (Porcine) 5,000 unit 06/24/23 17:56 06/27/23 06:08 Heparin 5,000 Unit/Ml Inj 1 Ml SUBCUT 5,000 unit Q12H GENESIS Administration Hydralazine HCl 100 mg 06/24/23 21:00 06/25/23 14:41 Hydralazine 50 Mg Tablet PO Not Given TID GENESIS Metoprolol Tartrate 75 mg 06/25/23 09:00 06/26/23 09:06 Metoprolol Tartrate 50 Mg Tablet PO 75 mg BID GENESIS Administration Ondansetron HCl 4 mg 06/24/23 17:56 06/27/23 09:02 Ondansetron 2 Mg/Ml Sdv 2 Ml IVP 4 mg Q8H PRN Administration vomiting, or N/V if npo Oxycodone HCl 15 mg 06/24/23 18:08 06/26/23 13:16 Oxycodone 5 Mg Ir Tab/Cap PO 15 mg Q6H PRN Administration PAIN Pantoprazole Sodium 40 mg 06/25/23 06:00 06/27/23 06:[address] 40 Mg Tablet PO 40 mg QAM GENESIS Administration Polyethylene Glycol 17 gm 06/26/23 18:00 06/27/23 09:02 Polyethylene Glycol 3350 Pkt 17 Gm PO 17 gm BID GENESIS Administration Tamsulosin HCl 0.4 mg 06/24/23 21:00 06/26/23 20:14 Tamsulosin 0.4 Mg Capsule PO 0.4 mg BEDTIME GENESIS Administration Zolpidem Tartrate 5 mg 06/24/23 23:19 06/26/23 20:14 Zolpidem 5 Mg Tablet PO 5 mg BEDTIME PRN Administration INSOMNIA PFSH Acute PFSH: Medical History Dyslipidemia Subdural hematoma BPH (benign prostatic hyperplasia) Lower urinary tract symptoms (LUTS) Arthritis Chronic migraine Chronic kidney disease BPH (benign prostatic hyperplasia) History of TIA (transient ischemic attack) ASHD (arteriosclerotic heart disease) CHF (congestive heart failure) HTN (hypertension) Surgical History Hx of CABG H/O craniotomy Previous back surgery S/P knee replacement S/P shoulder surgery S/P carpal tunnel release Family History Mother , AT AGE 76 BRAIN ANEURYSM No problems noted. Father , AT AGE 84 ARCHITECTURAL DRAFTING INSTRUCTOR,HEART DISEASE Cancer PROSTATE CAD (coronary artery disease) Social History Smoking and tobacco/nicotine status: former use of tobacco/nicotine Alcohol intake: unknown Substance/Drug Use: unknown Adopted: No Caregiver/support person: No Lives independently: Yes Marital status: / Current occupational status: retired Current gender identity: Male Vitals/I&O/Wt Last Vital Signs Temp 98.6 F 06/27/23 07:07 Pulse 93 06/27/23 08:23 Resp 16 06/27/23 08:18 BP 108/77 06/27/23 07:07 Pulse Ox 97 06/27/23 08:18 O2 Del Method Nasal Cannula 06/27/23 08:18 O2 Flow Rate 2 06/27/23 08:18 06/26/23 06/27/23 06/27/23 22:59 06:59 14:59 Output Total 250 / 250 200 / 450 100 / 100 Balance -250 / 90 -200 / -110 -100 / -100 Weight last 48 hrs Weight 299 lb 2 oz Weight 301 lb 11.2 oz Physical Exam Narrative: GENERAL: The patient is alert and oriented times three. Not in any acute distress. Morbidly obese HEENT: No significant pallor, icterus or lymphadenopathy.Oral cavity: There are no mucous membrane lesions. NECK: Trachea appears to be central. No masses noted. No JVD or thyromegaly appreciated. RESPIRATORY: Chest is symmetrical. No intercostals muscle retraction or any accessory muscle activation. There is no chest wall tenderness. Breath sounds are heard bilaterally. No rales or rhonchi heard. No evidence of any consolidation. BREASTS: Deferred. HEART: The heart sounds are normal. No S3 or S4. Short systolic murmur in the left upper border. No pericardial rub ABDOMEN: No vessel pulsations or distention. No tenderness. No organomegaly appreciated. Bowel sounds are normally heard. : Deferred. RECTAL: Deferred. LYMPHATIC: No lymphadenopathy noted in the neck. EXTREMITIES: 1-2+ edema both lower extremities. No cyanosis. MUSCULOSKELETAL: No acute joint deformities or swelling SKIN: There are no significant rashes or ecchymosis NEUROPSYCHIATRIC: The patient is alert and oriented x3. Appears to be in a good mood. No tremors or rigidity noted. Data 06/27/23 07:58 06/27/23 07:58 Other data: ECHO 1.. Normal left ventricular size, systolic function and wall thickness, with no regional wall motion abnormalities. Left ventricular ejection fraction is estimated at 55-60 %. 2. Trace aortic valve regurgitation. 3. When compared to study dated 08/19/22, LV systolic function seems to have improved . 02/17/23 Sestamibi Stress Test 1. No significant EKG changes with the LexiScan infusion. 2. No LexiScan induced chest pain or cardiac arrhythmia. 3. Normal blood pressure and heart rate response. 4. Sestamibi/sestamibi perfusion scan pending; see separate report. 02/17/23 Myocardial perfusion Scan 1. Unremarkable Myocardial perfusion imaging 2. Normal ejection fraction 64% 3. LV wall motion analysis revealing no gross wall motion abnormalities. 4. Normal LV volume Low probability for coronary ischemia, based on the above findings A&P Assessment and plan (1) Atrial fibrillation: Because of the bradycardia with amiodarone, I may discontinue the amiodarone at this point. I may give a trial of propafenone to see whether that makes any difference Qualifiers: Atrial fibrillation type: unspecified Qualified Code(s): I48.91 - Unspecified atrial fibrillation (2) Acute on chronic diastolic heart failure: Currently the heart failure seems to be compensated. May continue on the current measures. Will continue the careful IV diuresis. (3) Dyslipidemia: Patient on dietary modification. (4) HTN (hypertension): The blood pressure seems to be fairly under control. Qualifiers: Hypertension type: unspecified Qualified Code(s): I10 - Essential (primary) hypertension Plan Because of the bradycardia arrhythmia I may hold off on the amiodarone. We may give a trial of propafenone starting tomorrow Based on the clinical response, further recommendations will be made. Thank for the opportunity to eval this patient make these recommendations. Consult Attestations Medical Necessity Statement: Deferred to the primary Coding Level of Care Code 62104 Diagnoses Atrial fibrillation, unspecified type I48.91 Atrial fibrillation type: unspecified Acute on chronic diastolic heart failure I50.33 Dyslipidemia E78.5 Primary hypertension I10 Hypertension type: unspecified
[2023-06-27] MEDS: FUROsemide 10 mg/mL SDV 4mL 40 MG IVP (12:59)
[2023-06-27] MEDS: oxyCODONE 5 mg IR Tab/Cap 15 MG PO (21:12)
[2023-06-27] MEDS: tamsulosin 0.4 mg Capsule 0.400000000000000022 MG PO (21:12)
[2023-06-27] MEDS: zolpidem 5 mg Tablet PO (21:12)
--- NOTE | 2023-06-27 22:14 | PM.PN ---
Subjective Subjective: He is doing slightly better today. Headache resolved. Still some chest heaviness. Dyspnea with exertion. Vitals/I&O/Wt Last Vital Signs Temp 98.3 F 06/27/23 11:13 Pulse 87 06/27/23 16:00 Resp 25 H 06/27/23 21:12 BP 116/74 06/27/23 16:00 Pulse Ox 96 06/27/23 21:12 O2 Del Method Nasal Cannula 06/27/23 16:00 O2 Flow Rate 2 06/27/23 08:18 06/27/23 06/27/23 06/27/23 06:59 14:59 22:59 Intake Total 240 / 240 Output Total 200 / 450 520 / 520 Balance -200 / -110 -280 / -280 Weight last 48 hrs Weight 135.681 kg Weight 136.849 kg Physical Exam Narrative: Accompanied by family Const: COMMON NORMALS: patient oriented x3 and alert GENERAL APPEARANCE: cooperative NUTRITIONAL APPEARANCE: obese ORIENTATION/CONSCIOUSNESS: Yes awake HENMT: COMMON NORMALS: oropharynx normal Neck/C-Spine: COMMON NORMALS: no JVD Resp: COMMON NORMALS: normal respiratory effort and clear to auscultation bilaterally AUSCULTATION: clear to auscultation bilaterally Cardio: COMMON NORMALS: no JVD, regular rhythm, S1 normal heart sound present, S2 normal heart sound present and No murmurs present (Cardio) RATE: tachycardic RHYTHM: regular rhythm and abnormal rhythm irregularly irregular HEART SOUNDS: S1 normal heart sound present and S2 normal heart sound present GI: COMMON NORMALS: Normal to inspection, nondistended, normoactive bowel sounds present, Soft to palpation and non-tender PALPATION: Yes Soft to palpation Extremity: COMMON NORMALS: no joint enlargement GENERAL: Yes edema (2+) Neuro: COMMON NORMALS: patient oriented x3 and moves all extremities SENSORIUM/ORIENTATION: Yes alert Skin: COMMON NORMALS: no rashes or lesions noted GENERAL SKIN EXAM: no rashes or lesions noted Data 06/27/23 07:58 06/27/23 07:58 A&P Assessment and plan (1) CHF (congestive heart failure): Still with fluid overload, reviewed vitals, Intake and output, CBC, respiratory viral panel. CMP. Renal function responded favorably to low-dose Lasix injection yesterday. He is minimally in negative balance today. Feels very slightly better. Still having chest pressure, dyspnea on exertion. Concern is that he is having symptomatic atrial fibrillation contributing both to feeling of chest pressure as well as his decompensation of CHF. Discussed with him and family cardiology consultation. Discussed with equipment planner, appreciate assessment and recommendations. Amiodarone is held. Reviewed the repeat troponin. Unchanged from prior. Discussed with him also we are giving additional larger dose of IV Lasix 40 mg. Reacclimate status, symptoms, at risk of electrolyte balance with IV Lasix, reassess chemistry, at risk of renal dysfunction, reassess. Check magnesium. Discussed with shoe parts caser. Suspect decompensated diastolic CHF following A-fib with RVR. Additionally with worsening OLLIE, possibly cardiorenal syndrome. Qualifiers: Heart failure type: diastolic Heart failure chronicity: acute on chronic Qualified Code(s): I50.33 - Acute on chronic diastolic (congestive) heart failure (2) Atrial fibrillation with RVR: Discussed with equipment planner. Amiodarone was held due to prior intolerance. Will added to list of intolerances. Monitor blood pressure. If maintaining blood pressure consider resumption of metoprolol. Blood pressure low today, held hydralazine and dose of metoprolol. Discontinue lisinopril. Reviewed vitals, CMP. Reviewed reviewed echocardiogram results. Normal EF. Technically poor study. Minimal, nonhemodynamically significant pericardial effusion. Heart rates are better today, down into the 80s. Blood pressure soft. Had to stop lisinopril and holding hydralazine as well. Stop amiodarone drip. Switch to oral amiodarone. He initially wanted to be discharged this evening, however, noted to have very low urine output. Today creatinine is also increased. A-fib with RVR, heart rates in 120s. Complicated by left-sided chest pain, possibly cardiac demand ischemia versus NSTEMI. Also with dyspnea, lower extremity chronic edema, possible PE. Reviewed vitals, CBC, CMP, UA, chest x-ray, EKG, troponin, ER provider note, discussed with ER provider. EKG with AFib, no obvious acute AK on my interpretation. Pending official read. Did not respond to Cardizem drip. Started on amiodarone. Continue. Received IV metoprolol. Will resume his home dose metoprolol. Risk of hypotension, bradycardia with kacy ghazala treatment, combination of cardizem and metoprolol. Monitor on telemetry. He is not on anticoagulation due to prior complication with anticoagulation with intracranial hemorrhage. (3) OLLIE (acute kidney injury): Reviewed BUN, creatinine, potassium, anion gap, bicarb. Showing improvement, BUN down to 23, creatinine down to 1.6. Resuming diuresis. Recheck renal function. He is producing a small amount of urine. Discussed with him and family giving additional dose of 20 mg IV Lasix. Recheck the above parameters. Possibly ATN following NSAID use with celecoxib. Hold lisinopril. Noted reduced urine output, anuria this afternoon, only to 28 mL in bladder scan. Assess additionally for possible acute renal failure with anuria, volume overload. Lasix challenge 40 mg IV. Did produce about 550 mL of urine. Hold lisinopril. No evidence of bladder outlet obstruction on bladder scan. Reviewed BUN, creatinine, creatinine up to 1.8. UA obtained, reviewed, unremarkable. Will add urine urea, urine creatinine. Monitor GENIE. Possibly ATN following NSAID use. Blood pressure is low today, held hydralazine. Held dose of metoprolol. Reviewed echocardiogram results. Normal ejection fraction. Reassess renal function. Consideration of possibly cardiorenal syndrome but less likely given normal EF. (4) Chest pain: Chest pain resolved but still having some chest pressure today, dyspnea, will obtain additional EKG, troponin level. Resolved. Suspect may have been related to A-fib with RVR. Reviewed D-dimer, unremarkable for his age, discussed with him and family member. Monitor on telemetry. Reviewed echocardiogram Also had a stress test back in January without evidence of ischemia at that time. Normal ejection fraction. Discussed with patient and his sometime stress test may be less than 10% of cases falsely negative. Nitroglycerin as needed. Monitor symptoms. Plan Headache: Pending headache, nausea, poor appetite, will check respiratory viral panel. 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 HTN: Has been on Cardizem drip, currently started amiodarone drip, received small dose IV metoprolol, resumed on home dose metoprolol. Hold off amlodipine for now. Attestations Medical Necessity Statement*: Continue admission for assessment management of CHF, symptomatic A-fib, OLLIE. and High MDM includes amount and/or complexity of data reviewed/ordered [ resulted lab(s)/test(s), ordered lab(s)/test(s) and other healthcare professional discussion] and described risk of complication, morbidity or mortality of management as documented Diagnoses Acute on chronic diastolic congestive heart failure I50.33 Heart failure type: diastolic Heart failure chronicity: acute on chronic Atrial fibrillation with RVR I48.91 OLLIE (acute kidney injury) N17.9 Chest pain R07.9
[2023-06-28] VITALS (14 sets, daily range): BP systolic 104–138; BP diastolic 69–99; PULSE 85–112; RESP 15–26; TEMP 36.5–37.1; O2SAT 94–100
[2023-06-28 03:53] LABS: Basophils % 0.5 %; Eosinophils # 0.3 10^3/uL (0.0-0.8); Eosinophils % 4.5 %; Hematocrit 37.3 % (37-53); Lymphocytes # 1.9 10^3/uL (0.8-4.8); Mean Corpuscular HGB Conc 33.2 g/dL (30-55); Mean Corpuscular Hemoglobin 34.3 pg (27-33); Mean Corpuscular Volume 103.3 fl (82-101); Monocytes # 0.9 10^3/uL (0.2-0.9); Monocytes % 13.8 %; Neutrophils # 3.53 10^3/uL (1.8-7.7); Nucleated Red Blood Cells % 0 %; Platelet Count 93 10^3/cmm (157-399); Red Blood Count 3.61 10^6/uL (3.85-5.65); White Blood Count 6.65 10^3/uL (3.29-11.43)
[2023-06-28] MEDS: heparin 5,000 unit/mL INJ 1 mL 5000 UNIT SUBCUT ×2 (05:44→16:55)
[2023-06-28] MEDS: duloxetine 30 mg Capsule PO (05:45)
[2023-06-28] MEDS: pantoprazole DR 40 mg Tablet PO (05:45)
[2023-06-28] MEDS: aspirin 81 mg EC Tablet PO (05:45)
[2023-06-28 08:22] LABS: Blood Urea Nitrogen 19 mg/dL (8-23); Calcium 8.9 mg/dL (8.5-10.5); Carbon Dioxide 34 mmol/L (22-29); Chloride 96 mmol/L (98-107); Glucose 119 mg/dL (65-115); Magnesium 2.1 mg/dL (1.7-2.3); Osmolality Calculated 289 mOsm/kg (285-295); Sodium 138 mmol/L (136-145)
[2023-06-28 08:24] LABS: Creatinine Clr Calc Pharmacy 64.9625
[2023-06-28 08:25] LABS: Anion Gap 12.8 (5-19); Potassium 4.8 mmol/L (3.5-5.1)
[2023-06-28] MEDS: albuterol 2.5 mg/3 mL Neb INHALATION ×2 (08:27→21:01)
[2023-06-28] MEDS: oxyCODONE 5 mg IR Tab/Cap 15 MG PO ×2 (08:47→20:35)
[2023-06-28] MEDS: polyethylene glycol 3350 Pkt 17 gm PO ×2 (08:47→17:03)
[2023-06-28] MEDS: buPROPion XL (24 HR) 300 mg Tablet PO (08:47)
[2023-06-28] MEDS: ondansetron 2 mg/ML SDV 2 mL 4 MG IVP (08:49)
--- NOTE | 2023-06-28 09:37 | PM.PN ---
Subjective Subjective: Patient is feeling better. Denies any chest pain. Still continues in atrial fibrillation with a controlled ventricular response rate. Medications: Medication Review Details: Current Medications Acetaminophen (Acetaminophen 325 Mg Tablet) 650 mg PO Q6H PRN PRN Reason: Mild/Mod Pain Or Temp >/= 101 Albuterol Sulfate (Albuterol 2.5 Mg/3 Ml Neb) 2.5 mg INHALATION Q4H PRN PRN Reason: Shortness Of Breath Last Admin: 06/28/23 08:27 Dose: 2.5 mg Aspirin (Aspirin 81 Mg Ec Tablet) 81 mg PO QAM [facility] Last Admin: 06/28/23 05:45 Dose: 81 mg Bisacodyl (Bisacodyl 10 Mg Supp) 10 mg MD DAILY PRN PRN Reason: CONSTIPATION Last Admin: 06/26/23 15:50 Dose: 10 mg Bupropion HCl (Bupropion Xl (24 Hr) 300 Mg Tablet) 300 mg PO DAILY [facility] Last Admin: 06/28/23 08:47 Dose: 300 mg Duloxetine HCl (Duloxetine 30 Mg Capsule) 30 mg PO QAM [facility] Last Admin: 06/28/23 05:45 Dose: 30 mg Heparin Sodium (Porcine) (Heparin 5,000 Unit/Ml Inj 1 Ml) 5,000 unit SUBCUT Q12H [facility] Last Admin: 06/28/23 05:44 Dose: 5,000 unit Hydralazine HCl (Hydralazine 50 Mg Tablet) 100 mg PO TID [facility] Last Admin: 06/25/23 14:41 Dose: Not Given Metoprolol Tartrate (Metoprolol Tartrate 50 Mg Tablet) 75 mg PO BID [facility] Last Admin: 06/26/23 09:06 Dose: 75 mg Nitroglycerin (Nitroglycerin 0.4 Mg Sublingual Tablet) 0.4 mg SUBLINGUAL Q5M PRN PRN Reason: CHEST PAIN Ondansetron HCl (Ondansetron 2 Mg/Ml Sdv 2 Ml) 4 mg IVP Q8H PRN PRN Reason: vomiting, or N/V if npo Last Admin: 06/28/23 08:49 Dose: 4 mg Oxycodone HCl (Oxycodone 5 Mg Ir Tab/Cap) 15 mg PO Q6H PRN PRN Reason: PAIN Last Admin: 06/28/23 08:47 Dose: 15 mg Pantoprazole Sodium (Pantoprazole Dr 40 Mg Tablet) 40 mg PO QAM [facility] Last Admin: 06/28/23 05:45 Dose: 40 mg Polyethylene Glycol (Polyethylene Glycol 3350 Pkt 17 Gm) 17 gm PO BID [facility] Last Admin: 06/28/23 08:47 Dose: 17 gm Tamsulosin HCl (Tamsulosin 0.4 Mg Capsule) 0.4 mg PO BEDTIME [facility] Last Admin: 06/27/23 21:12 Dose: 0.4 mg Zolpidem Tartrate (Zolpidem 5 Mg Tablet) 5 mg PO BEDTIME PRN PRN Reason: INSOMNIA Last Admin: 06/27/23 21:12 Dose: 5 mg Vitals/I&O/Wt Last Vital Signs Temp 98.7 F 06/28/23 07:00 Pulse 111 H 06/28/23 08:32 Resp 26 H 06/28/23 08:47 BP 119/88 06/28/23 07:00 Pulse Ox 96 06/28/23 08:47 O2 Del Method Nasal Cannula 06/28/23 08:27 O2 Flow Rate 2 06/28/23 08:27 06/27/23 06/28/23 06/28/23 22:59 06:59 14:59 Intake Total 0 / 240 480 / 480 Balance 0 / -280 480 / 480 Weight last 48 hrs Weight 299 lb 2 oz Physical Exam Narrative: GENERAL: The patient is alert and oriented times three. Not in any acute distress. Morbidly obese HEENT: No significant pallor, icterus or lymphadenopathy.Oral cavity: There are no mucous membrane lesions. NECK: Trachea appears to be central. No masses noted. No JVD or thyromegaly appreciated. RESPIRATORY: Chest is symmetrical. No intercostals muscle retraction or any accessory muscle activation. There is no chest wall tenderness. Breath sounds are heard bilaterally. No rales or rhonchi heard. No evidence of any consolidation. BREASTS: Deferred. HEART: The heart sounds are normal. No S3 or S4. Short systolic murmur in the left upper border. No pericardial rub ABDOMEN: No vessel pulsations or distention. No tenderness. No organomegaly appreciated. Bowel sounds are normally heard. : Deferred. RECTAL: Deferred. LYMPHATIC: No lymphadenopathy noted in the neck. EXTREMITIES: 1-2+ edema both lower extremities. No cyanosis. MUSCULOSKELETAL: No acute joint deformities or swelling SKIN: There are no significant rashes or ecchymosis NEUROPSYCHIATRIC: The patient is alert and oriented x3. Appears to be in a good mood. No tremors or rigidity noted. Data 06/28/23 02:56 06/28/23 06:53 Other Labs: Laboratory Last Values WBC 6.65 10^3/uL (3.29-11.43) 06/28/23 02:56 RBC 3.61 10^6/uL (3.85-5.65) L 06/28/23 02:56 Hgb 12.40 g/dL (11.27-16.99) 06/28/23 02:56 Hct 37.3 % (37-53) 06/28/23 02:56 MCV 103.3 fl (82-101) H 06/28/23 02:56 MCH 34.3 pg (27-33) H 06/28/23 02:56 MCHC 33.2 g/dL (30-55) 06/28/23 02:56 RDW 13.0 % (12.1-15.1) 06/28/23 02:56 Plt Count 93 10^3/cmm (157-399) L 06/28/23 02:56 MPV 12.0 fL (7.4-10.4) H 06/28/23 02:56 Neut % (Auto) 53.0 % 06/28/23 02:56 Lymph % (Auto) 28.0 % 06/28/23 02:56 [place] % (Auto) 13.8 % 06/28/23 02:56 Eos % (Auto) 4.5 % 06/28/23 02:56 Baso % (Auto) 0.5 % 06/28/23 02:56 Neut # (Auto) 3.53 10^3/uL (1.8-7.7) 06/28/23 02:56 Lymph # (Auto) 1.9 10^3/uL (0.8-4.8) 06/28/23 02:56 [place] # (Auto) 0.9 10^3/uL (0.2-0.9) 06/28/23 02:56 Eos # (Auto) 0.3 10^3/uL (0.0-0.8) 06/28/23 02:56 Baso # (Auto) 0.0 10^3/uL (0.0-0.1) 06/28/23 02:56 Nucleated RBC % (auto) 0 % 06/28/23 02:56 Nucleated RBCs # 0.0 /100WBC 06/28/23 02:56 D-Dimer 0.75 ug/mLFEU (0-0.59) H 06/24/23 11:00 Sodium 138 mmol/L (136-145) 06/28/23 06:53 Potassium 4.8 mmol/L (3.5-5.1) 06/28/23 06:53 Chloride 96 mmol/L (98-107) L 06/28/23 06:53 Carbon Dioxide 34 mmol/L (22-29) H 06/28/23 06:53 Anion Gap 12.8 (5-19) 06/28/23 06:53 BUN 19 mg/dL (8-23) 06/28/23 06:53 Creatinine 1.3 mg/dL (0.7-1.2) H 06/28/23 06:53 GFR Calculation Not Reportable 06/28/23 06:53 Glucose 119 mg/dL (65-115) H 06/28/23 06:53 POC Glucose 126 mg/dL (70-110) H 06/27/23 06:09 Calculated Osmolality 289 mOsm/kg (285-295) 06/28/23 06:53 Calcium 8.9 mg/dL (8.5-10.5) 06/28/23 06:53 Magnesium 2.1 mg/dL (1.7-2.3) 06/28/23 06:53 Total Bilirubin 0.5 mg/dL (0.15-1.2) 06/27/23 07:58 AST 26 U/L (0-40) 06/27/23 07:58 ALT 11 U/L (0-41) 06/27/23 07:58 Alkaline Phosphatase 84 U/L (40-130) 06/27/23 07:58 Troponin T 5th Gen ng/L 81 ng/L (0-15) H 06/26/23 23:41 Troponin T Baseline 81 ng/L (0-15) H 06/24/23 11:00 Troponin T 120 Minute 78.29 ng/L (0-15) H 06/24/23 13:07 Delta Troponin T -2.71 ABS# (0-10) L 06/24/23 13:07 Troponin T Hi Sens 6Hr 84.23 ng/L (0-15) H 06/24/23 17:25 Troponin T Hi Sens 6Hr Delta 3.23 ng/L (0-12) 06/24/23 17:25 NT-Pro-B Natriuret Pep 673 pg/mL (0-450) H 06/24/23 11:00 Total Protein 6.7 g/dL (6.6-8.7) 06/27/23 07:58 Albumin 3.7 g/dL (3.5-5.2) 06/27/23 07:58 Globulin 3.0 g/dL (1.3-4.6) 06/27/23 07:58 TSH 2.00 uIU/mL (0.27-4.20) 06/24/23 11:00 Urine Color Yellow (Yellow) 06/25/23 16:25 Urine Appearance Clear (CLEAR) 06/25/23 16:25 Urine pH 5 (5-7) 06/25/23 16:25 Ur Specific [place] 1.020 (1.005-1.030) 06/25/23 16:25 Urine Protein Neg (Negative) 06/25/23 16:25 Urine Glucose (UA) Norm (Normal) 06/25/23 16:25 Urine Ketones Negative (Negative) 06/25/23 16:25 Urine Blood Neg (Negative) 06/25/23 16:25 Urine Nitrate Negative (Negative) 06/25/23 16:25 Urine Bilirubin Neg (Negative) 06/25/23 16:25 Urine Urobilinogen Norm mg/dL (Negative) 06/25/23 16:25 Ur Leukocyte Esterase Negative (Negative) 06/25/23 16:25 Adenovirus (PCR) Not detected (NOT DETECT) 06/26/23 23:15 C. pneumoniae DNA (PCR) Not detected (NOT DETECT) 06/26/23 23:15 Coronavirus 229E (PCR) Not detected (NOT DETECT) 06/26/23 23:15 Human Metapneumovir PCR Not detected (NOT DETECT) 06/26/23 23:15 Influenza A (H1) PCR Not detected (NOT DETECT) 06/26/23 23:15 Influ A (H1/09) PCR Not detected (NOT DETECT) 06/26/23 23:15 Influenza A (H3) PCR Not detected (NOT DETECT) 06/26/23 23:15 Influenza Type A (PCR) Not detected (NOT DETECT) 06/26/23 23:15 Influenza Type B (PCR) Not detected (NOT DETECT) 06/26/23 23:15 M. pneumoniae (PCR) Not detected (NOT DETECT) 06/26/23 23:15 Parainfluenza 1 (PCR) Not detected (NOT DETECT) 06/26/23 23:15 Parainfluenza 2 (PCR) Not detected (NOT DETECT) 06/26/23 23:15 Parainfluenza 3 (PCR) Not detected (NOT DETECT) 06/26/23 23:15 Parainfluenza 4 (PCR) Not detected (NOT DETECT) 06/26/23 23:15 RSV Type A (PCR) Not detected (NOT DETECT) 06/26/23 23:15 RSV Type B (PCR) Not detected (NOT DETECT) 06/26/23 23:15 Entero/Rhino (PCR) Not detected (NOT DETECT) 06/26/23 23:15 SARS-CoV-2 (PCR) Not detected (NOT DETECT) 06/26/23 23:15 A&P Assessment and plan (1) Atrial fibrillation: I may go ahead and start him on propafenone 150 mg p.o. now and every 8 hours. The risk and benefits of this medication were discussed with the patient. Possible risks and benefits were discussed with the patient. Patient is wanting to try this. Qualifiers: Atrial fibrillation type: unspecified Qualified Code(s): I48.91 - Unspecified atrial fibrillation (2) Acute on chronic diastolic heart failure: Currently the heart failure seems to be compensated. May continue on the current measures. Will continue the careful IV diuresis. (3) Dyslipidemia: Patient on dietary modification. (4) HTN (hypertension): The blood pressure seems to be fairly under control. Qualifiers: Hypertension type: unspecified Qualified Code(s): I10 - Essential (primary) hypertension Plan I may do a baseline EKG today. Will repeat EKG in the morning. Based on the clinical progress, further recommendations will be made. Patient is to be closely monitored on telemetry. Attestations Medical Necessity Statement*: Patient requires continued hospital stay for close monitoring and further management Coding Level of Care Code Acute Code for Chg Fwd Diagnoses Atrial fibrillation, unspecified type I48.91 Atrial fibrillation type: unspecified Acute on chronic diastolic heart failure I50.33 Dyslipidemia E78.5 Primary hypertension I10 Hypertension type: unspecified
[2023-06-28] MEDS: acetaminophen 1,000 MG/100 ML PIGGYBACK 400 MG IV (13:42)
[2023-06-28] MEDS: FUROsemide 10 mg/mL SDV 4mL 40 MG IVP (13:42)
--- NOTE | 2023-06-28 14:21 | ECG_ITS ---
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 Measurements Intervals [place] Rate: 111 P: 0 FL: 0 QRS: -23 QRSD: 121 T: 55 QT: 340 QTc: 462 Interpretive Statements ATRIAL FIBRILLATION WITH RAPID VENTRICULAR RESPONSE BORDERLINE LEFT AXIS DEVIATION [QRS AXIS < -20] MODERATE INTRAVENTRICULAR CONDUCTION DELAY [110+ ms QRS DURATION] MINIMAL ST DEPRESSION [0.025+ mV ST DEPRESSION] ABNORMAL RHYTHM ECG Compared to ECG 06/24/2023 16:43:27 Intraventricular conduction delay now present ST (T wave) deviation now present Electronically Signed On 06-28-2023 22:51:46 CDT by Nandini Zimmerman M.D. [id number]
[2023-06-28] MEDS: propafenone 150 mg Tablet PO ×2 (16:56→20:36)
--- NOTE | 2023-06-28 19:46 | PM.PN ---
Subjective Subjective: He has been having a migraine, right side of his head, has been somewhat protracted. He gets migraines intermittently at home. Has some medications that he takes as needed as part of a migraine cocktail including butalbital, hydroxyzine, significant, or sometimes rizatriptan. He is otherwise feeling slightly better today. Heart rate little bit faster today. Vitals/I&O/Wt Last Vital Signs Temp 97.8 F 06/28/23 15:56 Pulse 103 H 06/28/23 15:56 Resp 19 H 06/28/23 15:56 BP 104/69 06/28/23 15:56 Pulse Ox 97 06/28/23 15:56 O2 Del Method Nasal Cannula 06/28/23 15:56 O2 Flow Rate 2 06/28/23 08:27 06/28/23 06/28/23 06/28/23 06:59 14:59 22:59 Intake Total 0 / 240 720 / 720 340 / 1060 Output Total 125 / 125 350 / 475 Balance 0 / -280 595 / 595 -10 / 585 Weight last 48 hrs Weight 135.681 kg Physical Exam Narrative: Accompanied by family Const: COMMON NORMALS: patient oriented x3 and alert GENERAL APPEARANCE: cooperative NUTRITIONAL APPEARANCE: obese ORIENTATION/CONSCIOUSNESS: Yes awake HENMT: COMMON NORMALS: oropharynx normal Neck/C-Spine: COMMON NORMALS: no JVD Resp: COMMON NORMALS: normal respiratory effort and clear to auscultation bilaterally AUSCULTATION: clear to auscultation bilaterally Cardio: COMMON NORMALS: no JVD, regular rhythm, S1 normal heart sound present, S2 normal heart sound present and No murmurs present (Cardio) RATE: tachycardic RHYTHM: regular rhythm and abnormal rhythm irregularly irregular HEART SOUNDS: S1 normal heart sound present and S2 normal heart sound present GI: COMMON NORMALS: Normal to inspection, nondistended, normoactive bowel sounds present, Soft to palpation and non-tender PALPATION: Yes Soft to palpation Extremity: COMMON NORMALS: no joint enlargement GENERAL: Yes edema (2+) Neuro: COMMON NORMALS: patient oriented x3 and moves all extremities SENSORIUM/ORIENTATION: Yes alert Skin: COMMON NORMALS: no rashes or lesions noted GENERAL SKIN EXAM: no rashes or lesions noted Data 06/28/23 02:56 06/28/23 06:53 A&P Assessment and plan (1) CHF (congestive heart failure): Responded to diuretic, but still significant edema, and positive balance. Start scheduled Lasix 40 mg twice daily. Continue fluid restriction. Monitor electrolytes, at risk of deficiency with IV diuretics, risk of renal injury, reassess kidney function. Discussed with maori liaison adviser. Reviewed vitals, INR, BMP, magnesium. Concern is that he is having symptomatic atrial fibrillation contributing both to feeling of chest pressure as well as his decompensation of CHF. Repeat troponin unchanged from prior. Discussed with him also we are giving additional larger dose of IV Lasix 40 mg. Reacclimate status, symptoms, at risk of electrolyte balance with IV Lasix, reassess chemistry, at risk of renal dysfunction, reassess. Check magnesium. Suspect decompensated diastolic CHF following A-fib with RVR. Qualifiers: Heart failure type: diastolic Heart failure chronicity: acute on chronic Qualified Code(s): I50.33 - Acute on chronic diastolic (congestive) heart failure (2) Atrial fibrillation with RVR: Cardiology stopped amiodarone yesterday, started propafenone today. Continue, monitor heart rate, reassess consideration of further steps, cardioversion, possibly referral for ablation. Discussed with maori liaison adviser. Amiodarone was held due to prior intolerance. Will added to list of intolerances. Monitor blood pressure. If maintaining blood pressure consider resumption of metoprolol. Blood has been soft , held hydralazine and metoprolol. Discontinued lisinopril. Echocardiogram w Normal EF. Technically poor study. Minimal, nonhemodynamically significant pericardial effusion. Monitor on telemetry. He is not on anticoagulation due to prior complication with anticoagulation with intracranial hemorrhage. (3) OLLIE (acute kidney injury): Reviewed BUN, creatinine, potassium, anion gap, bicarb, magnesium. Improving OLLIE, BUN down to 19, creatinine down to 1.3. Resumed IV diuretics for CHF. Possibly ATN following NSAID use with celecoxib. Hold lisinopril. Noted reduced urine output, anuria this afternoon, only to 28 mL in bladder scan. Assess additionally for possible acute renal failure with anuria, volume overload. Lasix challenge 40 mg IV. Did produce about 550 mL of urine. Hold lisinopril. No evidence of bladder outlet obstruction on bladder scan. Reviewed BUN, creatinine, creatinine up to 1.8. UA obtained, reviewed, unremarkable. Will add urine urea, urine creatinine. Monitor GENIE. Possibly ATN following NSAID use. Blood pressure is low today, held hydralazine. Held dose of metoprolol. Reviewed echocardiogram results. Normal ejection fraction. Reassess renal function. Consideration of possibly cardiorenal syndrome but less likely given normal EF. (4) Chest pain: Reviewed CBC. EKG. Chest pain resolved but still having some chest heaviness. Suspect may have been related to A-fib with RVR. D-dimer, unremarkable for his age, discussed with him and family member. Monitor on telemetry. Also had a stress test back in January without evidence of ischemia at that time. Normal ejection fraction. Discussed with patient and his sometime stress test may be less than 10% of cases falsely negative. Nitroglycerin as needed. Monitor symptoms. Plan Migraine headache: Gets recurrent migraines. Will give dose of Tylenol IV. Reviewed respiratory viral panel, negative. 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 HTN: BP soft, hold antihypertensives. Attestations Medical Necessity Statement*: Continue admission for assessment management of decompensated CHF, symptomatic A-fib, OLLIE. and High MDM includes amount and/or complexity of data reviewed/ordered [ resulted lab(s)/test(s), ordered lab(s)/test(s) and other healthcare professional discussion] and described risk of complication, morbidity or mortality of management as documented Diagnoses Acute on chronic diastolic congestive heart failure I50.33 Heart failure type: diastolic Heart failure chronicity: acute on chronic Atrial fibrillation with RVR I48.91 OLLIE (acute kidney injury) N17.9 Chest pain R07.9
[2023-06-28] MEDS: zolpidem 5 mg Tablet PO (20:35)
[2023-06-28] MEDS: tamsulosin 0.4 mg Capsule 0.400000000000000022 MG PO (20:35)
[2023-06-29] VITALS (12 sets, daily range): BP systolic 92–137; BP diastolic 43–91; PULSE 89–116; RESP 15–28; TEMP 36.7–36.9; O2SAT 90–99
[2023-06-29] MEDS: FUROsemide 10 mg/mL SDV 4mL 40 MG IVP ×2 (03:46→17:40)
[2023-06-29 04:03] LABS: Basophils % 0.5 %; Eosinophils # 0.3 10^3/uL (0.0-0.8); Eosinophils % 5.2 %; Hematocrit 38.8 % (37-53); Lymphocytes # 1.3 10^3/uL (0.8-4.8); Lymphocytes % 20.2 %; Mean Corpuscular HGB Conc 31.2 g/dL (30-55); Mean Corpuscular Hemoglobin 33.1 pg (27-33); Mean Platelet Volume 11.1 fL (7.4-10.4); Monocytes # 0.8 10^3/uL (0.2-0.9); Monocytes % 12.8 %; Nucleated Red Blood Cells % 0 %; Platelet Count 109 10^3/cmm (157-399); Red Blood Count 3.66 10^6/uL (3.85-5.65); Red Cell Distribution Width 12.7 % (12.1-15.1); White Blood Count 6.39 10^3/uL (3.29-11.43)
[2023-06-29 04:26] LABS: Anion Gap 9.3 (5-19); Blood Urea Nitrogen 15 mg/dL (8-23); Calcium 8.5 mg/dL (8.5-10.5); Carbon Dioxide 38 mmol/L (22-29); Chloride 99 mmol/L (98-107); Creatinine Clr Calc Pharmacy 60.3223; Glucose 131 mg/dL (65-115); Magnesium 2.1 mg/dL (1.7-2.3); Osmolality Calculated 297 mOsm/kg (285-295); Potassium 4.3 mmol/L (3.5-5.1); Sodium 142 mmol/L (136-145)
[2023-06-29] MEDS: pantoprazole DR 40 mg Tablet PO (05:49)
[2023-06-29] MEDS: duloxetine 30 mg Capsule PO (05:49)
[2023-06-29] MEDS: aspirin 81 mg EC Tablet PO (05:49)
[2023-06-29] MEDS: heparin 5,000 unit/mL INJ 1 mL 5000 UNIT SUBCUT ×2 (05:49→17:40)
[2023-06-29] MEDS: polyethylene glycol 3350 Pkt 17 gm PO ×2 (08:34→17:40)
[2023-06-29] MEDS: buPROPion XL (24 HR) 300 mg Tablet PO (08:34)
[2023-06-29] MEDS: ondansetron 2 mg/ML SDV 2 mL 4 MG IVP (08:34)
[2023-06-29] MEDS: propafenone 150 mg Tablet PO ×3 (08:34→21:46)
[2023-06-29] MEDS: albuterol 2.5 mg/3 mL Neb INHALATION (09:06)
--- NOTE | 2023-06-29 09:23 | XR_ITS ---
WS: [id number] XR chest 1V portable [id number] REASON FOR EXAM: chf FINDINGS: The chest appears unchanged compared to 06/24/2023. Significant tortuosity and ectasia of the thoracic aorta. Normal heart size. Calcified granulomatous disease in both hemithoraces. No acute pulmonary parenchymal or pleural abnormality. IMPRESSION: Stable chest without acute abnormality.
--- NOTE | 2023-06-29 09:53 | ECG_ITS ---
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 Measurements Intervals [place] Rate: 105 P: 0 [place]: 0 QRS: -37 QRSD: 132 T: 31 QT: 381 QTc: 504 Interpretive Statements ATRIAL FIBRILLATION WITH RAPID VENTRICULAR RESPONSE LEFT AXIS DEVIATION [QRS AXIS < -30] INTRAVENTRICULAR CONDUCTION DELAY [130+ ms QRS DURATION] Compared to ECG 06/28/2023 14:21:57 ST (T wave) deviation no longer present Electronically Signed On 06-29-2023 22:53:33 CDT by Nandini Zimmerman M.D. [id number]
--- NOTE | 2023-06-29 10:12 | PC.SOCIAL ---
IMM Update pg 2 of IMM updated and reviewed w/ patient. Copy provided and copy dated, initialed and placed in chart.
[2023-06-29 10:13] LABS: Iron 89 ug/dL (59-158); NT Pro B Type Natriuretic Pept 739 pg/mL (0-450); Percent Saturation 47.8 % (20-50); Total Iron Binding Capacity 186 mcg/dl; Unsaturated Iron Binding 97 ug/dL (112-347); Vitamin B12 285 pg/mL (232-1245)
--- NOTE | 2023-06-29 15:12 | P.PN_ITS ---
Subjective 2 Subjective: Hospital course, labs appreciated. Seen with family at bedside. Patient sitting up in chair. Denies any nausea, vomiting, headache. Complaining of feeling weak. Overall states breathing and his palpitations have improved quite a bit since admission. Currently on 2 L of oxygen supplementation. Vitals/I&O/Wt Last Vital Signs Temp 98.3 F 06/29/23 12:41 Pulse 103 H 06/29/23 12:41 Resp 15 06/29/23 12:41 BP 108/67 06/29/23 12:41 Pulse Ox 97 06/29/23 12:41 O2 Del Method Nasal Cannula 06/29/23 09:07 O2 Flow Rate 2 06/29/23 09:07 06/29/23 06/29/23 06/29/23 06:59 14:59 22:59 Intake Total 240 / 240 Output Total 0 / 475 Balance 0 / 585 240 / 240 Weight last 48 hrs Weight 135.624 kg Physical Exam 2 Narrative: Accompanied by family Const: COMMON NORMALS: patient oriented x3 and alert GENERAL APPEARANCE: c ooperative NUTRITIONAL APPEARANCE: obese ORIENTATION/CONSCIOUSNESS: Yes awake HENMT: COMMON NORMALS: oropharynx normal Neck/C-Spine: COMMON NORMALS: no JVD Resp: COMMON NORMALS: normal respiratory effort and clear to auscultation bilaterally AUSCULTATION: clear to auscultation bilaterally Cardio: COMMON NORMALS: no JVD, regular rhythm, S1 normal heart sound present, S2 normal heart sound present and No murmurs present (Cardio) RATE: t achycardic RHYTHM: regular rhythm and abnormal rhythm irregularly irregular HEART SOUNDS: S1 normal heart sound present and S2 normal heart sound present GI: COMMON NORMALS: Normal to inspection, nondistended, normoactive bowel sounds present, Soft to palpation and non-tender PALPATION: Yes Soft to palpation Extremity: COMMON NORMALS: no joint enlargement GENERAL: Yes edema (2+) Neuro: COMMON NORMALS: patient oriented x3 and moves all extremities S ENSORIUM/ORIENTATION: Yes alert Skin: COMMON NORMALS: no rashes or lesions noted GENERAL SKIN EXAM: no rashes or lesions noted Data 06/29/23 03:52 06/29/23 03:52 A&P Assessment and plan (1) CHF (congestive heart failure): In setting of A-fib with RVR. Currently improving. Strict input output charting, daily weights. Fluid restriction up to 1500 cc. Continue with IV Lasix 40 mg twice daily. Given CKD with poor urine response will add metolazone 5 mg daily. Patient is close to achieving euvolemia. Qualifiers: Heart failure type: diastolic Heart failure chronicity: acute on chronic Qualified Code(s): I50.33 - Acute on chronic diastolic (congestive) heart failure (2) Atrial fibrillation with RVR: Appreciate cardiology recommendations. Amiodarone stopped because of history of nontolerant to medication. Continue with propafenone. Heart rate still mildly elevated. Repeat EKG. Discussed in detail with cardiology team. For now we will continue with propafenone. Will plan to follow-up as an outpatient in 1 week and if does not improve will discuss further about possible cardioversion versus ablation. He is not on anticoagulation due to prior complication with anticoagulation with intracranial hemorrhage. (3) OLLIE (acute kidney injury): Recent baseline for last 1 year has been around 1.3-1.6. Currently 1.4. CKD most likely in setting of NSAID use. Medication reconciliation done for nephrotoxic drugs. Monitor urine output. Check urine lites, urine creatinine, urine eosinophils. Check renal ultrasound to rule out hydronephrosis. (4) Chest pain: Most likely in setting of A-fib with RVR. Continue with aspirin. Check lipid panel, A1c. Also had a stress test back in January without evidence of ischemia at that time. Normal ejection fraction. Discussed with patient and his sometime stress test may be less than 10% of cases falsely negative. Nitroglycerin as needed. Monitor symptoms. (5) Physical deconditioning: (6) Chronic kidney disease: Plan Migraine headache: Gets recurrent migraines. Will give dose of Tylenol IV. Reviewed respiratory viral panel, negative. 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 HTN: Holding off on antihypertensives. Goal blood pressure less than 140/90 MAG with mean over 65. Holding off on home dose of hydralazine and metoprolol for now. Physical deconditioning: As per patient's daughter he has been having recurrent episodes of unsteadiness on feet with occasional episode of almost falls. Symptoms of started recently within the last few weeks. Will get physical therapy. Patient might benefit with home meds on discharge. CODE STATUS: Discussed again in detail with patient and family by bedside. Daughter with the DPOA. Limited resuscitation. Cardiac diet Protonix for PUD prophylaxis Heparin for DVT prophylaxis. Attestations 2 Medical Necessity Statement*: Requires further hospitalization for management of diastolic heart failure in setting of A-fib with RVR, OLLIE on CKD while safe discharge planning is sought. Diagnoses Acute on chronic diastolic congestive heart failure I50.33 Heart failure type: diastolic Heart failure chronicity: acute on chronic Atrial fibrillation with RVR I48.91 OLLIE (acute kidney injury) N17.9 Chest pain R07.9 Physical deconditioning R53.81 Chronic kidney disease N18.9
[2023-06-29] MEDS: metOLazone 5 MG Tablet PO (15:24)
--- NOTE | 2023-06-29 21:23 | PM.PN ---
Subjective Subjective: Patient is doing okay. Seems to be tolerating the propafenone so far well. Heart rate is around 100. Still seems to be in atrial fibrillation. The shortness of breath is improving. Medications: Medication Review Details: Current Medications Acetaminophen (Acetaminophen 325 Mg Tablet) 650 mg PO Q6H PRN PRN Reason: Mild/Mod Pain Or Temp >/= 101 Albuterol Sulfate (Albuterol 2.5 Mg/3 Ml Neb) 2.5 mg INHALATION Q4H PRN PRN Reason: Shortness Of Breath Last Admin: 06/29/23 09:06 Dose: 2.5 mg Aspirin (Aspirin 81 Mg Ec Tablet) 81 mg PO QAM [facility] Last Admin: 06/29/23 05:49 Dose: 81 mg Bisacodyl (Bisacodyl 10 Mg Supp) 10 mg [place] DAILY PRN PRN Reason: CONSTIPATION Last Admin: 06/26/23 15:50 Dose: 10 mg Bupropion HCl (Bupropion Xl (24 Hr) 300 Mg Tablet) 300 mg PO DAILY [facility] Last Admin: 06/29/23 08:34 Dose: 300 mg Duloxetine HCl (Duloxetine 30 Mg Capsule) 30 mg PO QAM [facility] Last Admin: 06/29/23 05:49 Dose: 30 mg Furosemide (Furosemide 10 Mg/Ml Sdv 4ml) 40 mg IVP BID@0400,1600 [facility] Last Admin: 06/29/23 17:40 Dose: 40 mg Heparin Sodium (Porcine) (Heparin 5,000 Unit/Ml Inj 1 Ml) 5,000 unit SUBCUT Q12H [facility] Last Admin: 06/29/23 17:40 Dose: 5,000 unit Hydralazine HCl (Hydralazine 50 Mg Tablet) 100 mg PO TID [facility] Last Admin: 06/25/23 14:41 Dose: Not Given Metolazone (Metolazone 5 Mg Tablet) 5 mg PO DAILY [facility] Last Admin: 06/29/23 15:24 Dose: 5 mg Metoprolol Tartrate (Metoprolol Tartrate 50 Mg Tablet) 75 mg PO BID [facility] Last Admin: 06/26/23 09:06 Dose: 75 mg Nitroglycerin (Nitroglycerin 0.4 Mg Sublingual Tablet) 0.4 mg SUBLINGUAL Q5M PRN PRN Reason: CHEST PAIN Ondansetron HCl (Ondansetron 2 Mg/Ml Sdv 2 Ml) 4 mg IVP Q8H PRN PRN Reason: vomiting, or N/V if npo Last Admin: 06/29/23 08:34 Dose: 4 mg Oxycodone HCl (Oxycodone 5 Mg Ir Tab/Cap) 15 mg PO Q6H PRN PRN Reason: PAIN Last Admin: 06/28/23 20:35 Dose: 15 mg Pantoprazole Sodium (Pantoprazole Dr 40 Mg Tablet) 40 mg PO QAM [facility] Last Admin: 06/29/23 05:49 Dose: 40 mg Polyethylene Glycol (Polyethylene Glycol 3350 Pkt 17 Gm) 17 gm PO BID [facility] Last Admin: 06/29/23 17:40 Dose: 17 gm Propafenone HCl (Propafenone 150 Mg Tablet) 150 mg PO TID [facility] Last Admin: 06/29/23 15:24 Dose: 150 mg Tamsulosin HCl (Tamsulosin 0.4 Mg Capsule) 0.4 mg PO BEDTIME [facility] Last Admin: 06/28/23 20:35 Dose: 0.4 mg Zolpidem Tartrate (Zolpidem 5 Mg Tablet) 5 mg PO BEDTIME PRN PRN Reason: INSOMNIA Last Admin: 06/28/23 20:35 Dose: 5 mg Vitals/I&O/Wt Last Vital Signs Temp 98.3 F 06/29/23 20:00 Pulse 107 H 06/29/23 20:00 Resp 18 06/29/23 20:00 BP 137/89 06/29/23 20:00 Pulse Ox 91 06/29/23 20:00 O2 Del Method Nasal Cannula 06/29/23 20:00 O2 Flow Rate 2 06/29/23 09:07 06/29/23 06/29/23 06/29/23 06:59 14:59 22:59 Intake Total 480 / 480 240 / 720 Output Total 0 / 475 100 / 100 Balance 0 / 585 480 / 480 140 / 620 Weight last 48 hrs Weight 299 lb Physical Exam Narrative: GENERAL: The patient is alert and oriented times three. Not in any acute distress. Morbidly obese HEENT: No significant pallor, icterus or lymphadenopathy.Oral cavity: There are no mucous membrane lesions. NECK: Trachea appears to be central. No masses noted. No JVD or thyromegaly appreciated. RESPIRATORY: Chest is symmetrical. No intercostals muscle retraction or any accessory muscle activation. There is no chest wall tenderness. Breath sounds are heard bilaterally. No rales or rhonchi heard. No evidence of any consolidation. BREASTS: Deferred. HEART: The heart sounds are normal. No S3 or S4. Short systolic murmur in the left upper border. No pericardial rub ABDOMEN: No vessel pulsations or distention. No tenderness. No organomegaly appreciated. Bowel sounds are normally heard. : Deferred. RECTAL: Deferred. LYMPHATIC: No lymphadenopathy noted in the neck. EXTREMITIES: 1-2+ edema both lower extremities. No cyanosis. MUSCULOSKELETAL: No acute joint deformities or swelling SKIN: There are no significant rashes or ecchymosis NEUROPSYCHIATRIC: The patient is alert and oriented x3. Appears to be in a good mood. No tremors or rigidity noted. Data 06/29/23 03:52 06/29/23 03:52 Other Labs: Laboratory Last Values WBC 6.39 10^3/uL (3.29-11.43) 06/29/23 03:52 RBC 3.66 10^6/uL (3.85-5.65) L 06/29/23 03:52 Hgb 12.10 g/dL (11.27-16.99) 06/29/23 03:52 Hct 38.8 % (37-53) 06/29/23 03:52 MCV 106.0 fl (82-101) H 06/29/23 03:52 MCH 33.1 pg (27-33) H 06/29/23 03:52 MCHC 31.2 g/dL (30-55) D 06/29/23 03:52 RDW 12.7 % (12.1-15.1) 06/29/23 03:52 Plt Count 109 10^3/cmm (157-399) L 06/29/23 03:52 MPV 11.1 fL (7.4-10.4) H 06/29/23 03:52 Neut % (Auto) 61.0 % 06/29/23 03:52 Lymph % (Auto) 20.2 % 06/29/23 03:52 [place] % (Auto) 12.8 % 06/29/23 03:52 Eos % (Auto) 5.2 % 06/29/23 03:52 Baso % (Auto) 0.5 % 06/29/23 03:52 Neut # (Auto) 3.90 10^3/uL (1.8-7.7) 06/29/23 03:52 Lymph # (Auto) 1.3 10^3/uL (0.8-4.8) 06/29/23 03:52 [place] # (Auto) 0.8 10^3/uL (0.2-0.9) 06/29/23 03:52 Eos # (Auto) 0.3 10^3/uL (0.0-0.8) 06/29/23 03:52 Baso # (Auto) 0.0 10^3/uL (0.0-0.1) 06/29/23 03:52 Nucleated RBC % (auto) 0 % 06/29/23 03:52 Nucleated RBCs # 0.0 /100WBC 06/29/23 03:52 D-Dimer 0.75 ug/mLFEU (0-0.59) H 06/24/23 11:00 Sodium 142 mmol/L (136-145) 06/29/23 03:52 Potassium 4.3 mmol/L (3.5-5.1) 06/29/23 03:52 Chloride 99 mmol/L (98-107) 06/29/23 03:52 Carbon Dioxide 38 mmol/L (22-29) H 06/29/23 03:52 Anion Gap 9.3 (5-19) 06/29/23 03:52 BUN 15 mg/dL (8-23) 06/29/23 03:52 Creatinine 1.4 mg/dL (0.7-1.2) H 06/29/23 03:52 GFR Calculation Not Reportable 06/29/23 03:52 Glucose 131 mg/dL (65-115) H 06/29/23 03:52 POC Glucose 126 mg/dL (70-110) H 06/27/23 06:09 Calculated Osmolality 297 mOsm/kg (285-295) H 06/29/23 03:52 Calcium 8.5 mg/dL (8.5-10.5) 06/29/23 03:52 Magnesium 2.1 mg/dL (1.7-2.3) 06/29/23 03:52 Iron 89 ug/dL (59-158) 06/29/23 03:52 TIBC 186 mcg/dl 06/29/23 03:52 % Saturation 47.8 % (20-50) 06/29/23 03:52 Unsat Iron Binding 97 ug/dL (112-347) L 06/29/23 03:52 Total Bilirubin 0.5 mg/dL (0.15-1.2) 06/27/23 07:58 AST 26 U/L (0-40) 06/27/23 07:58 ALT 11 U/L (0-41) 06/27/23 07:58 Alkaline Phosphatase 84 U/L (40-130) 06/27/23 07:58 Troponin T 5th Gen ng/L 81 ng/L (0-15) H 06/26/23 23:41 Troponin T Baseline 81 ng/L (0-15) H 06/24/23 11:00 Troponin T 120 Minute 78.29 ng/L (0-15) H 06/24/23 13:07 Delta Troponin T -2.71 ABS# (0-10) L 06/24/23 13:07 Troponin T Hi Sens 6Hr 84.23 ng/L (0-15) H 06/24/23 17:25 Troponin T Hi Sens 6Hr Delta 3.23 ng/L (0-12) 06/24/23 17:25 NT-Pro-B Natriuret Pep 739 pg/mL (0-450) H 06/29/23 03:52 Total Protein 6.7 g/dL (6.6-8.7) 06/27/23 07:58 Albumin 3.7 g/dL (3.5-5.2) 06/27/23 07:58 Globulin 3.0 g/dL (1.3-4.6) 06/27/23 07:58 Vitamin B12 285 pg/mL (232-1245) 06/29/23 03:52 TSH 2.00 uIU/mL (0.27-4.20) 06/24/23 11:00 Urine Color Yellow (Yellow) 06/25/23 16:25 Urine Appearance Clear (CLEAR) 06/25/23 16:25 Urine pH 5 (5-7) 06/25/23 16:25 Ur Specific [place] 1.020 (1.005-1.030) 06/25/23 16:25 Urine Protein Neg (Negative) 06/25/23 16:25 Urine Glucose (UA) Norm (Normal) 06/25/23 16:25 Urine Ketones Negative (Negative) 06/25/23 16:25 Urine Blood Neg (Negative) 06/25/23 16:25 Urine Nitrate Negative (Negative) 06/25/23 16:25 Urine Bilirubin Neg (Negative) 06/25/23 16:25 Urine Urobilinogen Norm mg/dL (Negative) 06/25/23 16:25 Ur Leukocyte Esterase Negative (Negative) 06/25/23 16:25 Adenovirus (PCR) Not detected (NOT DETECT) 06/26/23 23:15 C. pneumoniae DNA (PCR) Not detected (NOT DETECT) 06/26/23 23:15 Coronavirus 229E (PCR) Not detected (NOT DETECT) 06/26/23 23:15 Human Metapneumovir PCR Not detected (NOT DETECT) 06/26/23 23:15 Influenza A (H1) PCR Not detected (NOT DETECT) 06/26/23 23:15 Influ A (H1/09) PCR Not detected (NOT DETECT) 06/26/23 23:15 Influenza A (H3) PCR Not detected (NOT DETECT) 06/26/23 23:15 Influenza Type A (PCR) Not detected (NOT DETECT) 06/26/23 23:15 Influenza Type B (PCR) Not detected (NOT DETECT) 06/26/23 23:15 M. pneumoniae (PCR) Not detected (NOT DETECT) 06/26/23 23:15 Parainfluenza 1 (PCR) Not detected (NOT DETECT) 06/26/23 23:15 Parainfluenza 2 (PCR) Not detected (NOT DETECT) 06/26/23 23:15 Parainfluenza 3 (PCR) Not detected (NOT DETECT) 06/26/23 23:15 Parainfluenza 4 (PCR) Not detected (NOT DETECT) 06/26/23 23:15 RSV Type A (PCR) Not detected (NOT DETECT) 06/26/23 23:15 RSV Type B (PCR) Not detected (NOT DETECT) 06/26/23 23:15 Entero/Rhino (PCR) Not detected (NOT DETECT) 06/26/23 23:15 SARS-CoV-2 (PCR) Not detected (NOT DETECT) 06/26/23 23:15 A&P Assessment and plan (1) Atrial fibrillation: So far he is tolerating the propafenone well. May continue the same. EKG in the morning. Qualifiers: Atrial fibrillation type: unspecified Qualified Code(s): I48.91 - Unspecified atrial fibrillation (2) Acute on chronic diastolic heart failure: Discontinue the IV Lasix. May start her on Lasix 60 mg p.o. twice daily. Continue on the current medication (3) Dyslipidemia: Patient on dietary modification. (4) HTN (hypertension): The blood pressure seems to be fairly under control. Qualifiers: Hypertension type: unspecified Qualified Code(s): I10 - Essential (primary) hypertension Plan EKG in the morning. Lasix 60 mg p.o. twice daily Possible discharge home tomorrow Attestations Medical Necessity Statement*: Patient requires continued hospital stay for close monitoring and further management Coding Level of Care Code 53669 Diagnoses Atrial fibrillation, unspecified type I48.91 Atrial fibrillation type: unspecified Acute on chronic diastolic heart failure I50.33 Dyslipidemia E78.5 Primary hypertension I10 Hypertension type: unspecified
[2023-06-29] MEDS: oxyCODONE 5 mg IR Tab/Cap 15 MG PO (21:45)
[2023-06-29] MEDS: zolpidem 5 mg Tablet PO (21:46)
[2023-06-29] MEDS: tamsulosin 0.4 mg Capsule 0.400000000000000022 MG PO (21:46)
[2023-06-29 22:14] LABS: Urine Creatinine 40 mg/dL (39-259)
[2023-06-29 22:27] LABS: Urea Nitrogen,Urine Random 123 mg/dL
[2023-06-30] VITALS (9 sets, daily range): BP systolic 94–126; BP diastolic 61–102; PULSE 76–113; RESP 18–27; TEMP 36.5–36.8; O2SAT 95–97
[2023-06-30 03:36] LABS: Basophils % 0.4 %; Eosinophils # 0.4 10^3/uL (0.0-0.8); Eosinophils % 5.6 %; Lymphocytes # 1.8 10^3/uL (0.8-4.8); Lymphocytes % 26.5 %; Mean Corpuscular HGB Conc 31.6 g/dL (30-55); Mean Corpuscular Hemoglobin 33.1 pg (27-33); Mean Platelet Volume 11.2 fL (7.4-10.4); Monocytes # 0.8 10^3/uL (0.2-0.9); Monocytes % 11.7 %; Neutrophils # 3.78 10^3/uL (1.8-7.7); Neutrophils % 55.4 %; Nucleated Red Blood Cells % 0 %; Platelet Count 116 10^3/cmm (157-399); Red Blood Count 3.62 10^6/uL (3.85-5.65); Red Cell Distribution Width 12.5 % (12.1-15.1); White Blood Count 6.83 10^3/uL (3.29-11.43)
[2023-06-30 03:57] LABS: Alanine Aminotransferase 18 U/L (0-41); Albumin Level 3.6 g/dL (3.5-5.2); Alkaline Phosphatase 73 U/L (40-130); Anion Gap 10.7 (5-19); Aspartate Amino Transferase 30 U/L (0-40); Blood Urea Nitrogen 14 mg/dL (8-23); Calcium 8.7 mg/dL (8.5-10.5); Chloride 93 mmol/L (98-107); Creatinine Clr Calc Pharmacy 56.2877; Globulin 2.3 g/dL (1.3-4.6); Glucose 109 mg/dL (65-115); Osmolality Calculated 293 mOsm/kg (285-295); Potassium 3.7 mmol/L (3.5-5.1); Sodium 141 mmol/L (136-145); Total Bilirubin 0.4 mg/dL (0.15-1.2); Total Protein 5.9 g/dL (6.6-8.7)
[2023-06-30 03:59] LABS: Chol HDL Ratio 2.88 mg/dL (1.0-5.00); Cholesterol 187 mg/dL (0-200); HDL Cholesterol 65 mg/dL (60-100); LDL Cholesterol Calculated 96 mg/dL (50-129); Magnesium 2.1 mg/dL (1.7-2.3); Triglycerides 130 mg/dL (0-150); VLDL Cholestrol Calculation 26 mg/dL (0-30)
[2023-06-30 04:09] LABS: Carbon Dioxide 41 mmol/L (22-29)
[2023-06-30 04:20] LABS: Folate Level 16.9 ng/mL (4.5-32.2)
[2023-06-30 04:21] LABS: Estmated Average Glucose 103; Hemoglobin A1C 5.2 % (4.0-6.0)
--- NOTE | 2023-06-30 06:00 | ECG_ITS ---
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 Measurements Intervals [place] Rate: 99 P: 0 [place]: 0 QRS: -30 QRSD: 131 T: 38 QT: 363 QTc: 467 Interpretive Statements ATRIAL FIBRILLATION BORDERLINE LEFT AXIS DEVIATION [QRS AXIS < -20] INTRAVENTRICULAR CONDUCTION DELAY [130+ ms QRS DURATION] Compared to ECG 06/29/2023 10:55:22 No significant changes Electronically Signed On 06-30-2023 17:27:51 CDT by Derian Garcia M.D. [email or web address]
[2023-06-30] MEDS: pantoprazole DR 40 mg Tablet PO (06:28)
[2023-06-30] MEDS: heparin 5,000 unit/mL INJ 1 mL 5000 UNIT SUBCUT ×2 (06:28→17:57)
[2023-06-30] MEDS: aspirin 81 mg EC Tablet PO (06:28)
[2023-06-30] MEDS: duloxetine 30 mg Capsule PO (06:28)
[2023-06-30] MEDS: albuterol 2.5 mg/3 mL Neb INHALATION (08:01)
[2023-06-30] MEDS: buPROPion XL (24 HR) 300 mg Tablet PO (08:25)
[2023-06-30] MEDS: polyethylene glycol 3350 Pkt 17 gm PO ×2 (08:25→17:57)
[2023-06-30] MEDS: metOLazone 5 MG Tablet PO (08:26)
[2023-06-30] MEDS: FUROsemide 40 mg Tablet 60 MG PO ×2 (08:26→16:00)
[2023-06-30] MEDS: propafenone 150 mg Tablet PO ×3 (08:26→20:30)
[2023-06-30] MEDS: metoprolol tartrate 50 mg Tablet 25 MG PO (10:06)
[2023-06-30] MEDS: acetaZOLAMIDE 250 mg Tablet 500 MG PO (10:06)
--- NOTE | 2023-06-30 14:46 | P.PN_ITS ---
Subjective 2 Subjective: No acute vents overnight. Patient denies any nausea vomiting, headache. Today morning seen sitting up in chair. States he is feeling better than before and yesterday. Denies any chest pain. Heart rate still elevated. On 3 L of oxygen supplementation. Vitals/I&O/Wt Last Vital Signs Temp 98.3 F 06/30/23 11:07 Pulse 90 06/30/23 11:07 Resp 21 H 06/30/23 11:07 BP 114/78 06/30/23 11:07 Pulse Ox 97 06/30/23 11:07 O2 Del Method Nasal Cannula 06/30/23 11:07 O2 Flow Rate 2 06/30/23 08:01 06/29/23 06/30/23 06/30/23 22:59 06:59 14:59 Intake Total 240 / 720 480 / 1200 620 / 620 Output Total 350 / 350 Balance -110 / 370 480 / 850 620 / 620 Weight last 48 hrs Weight 135.624 kg Physical Exam 2 Narrative: Accompanied by family Const: COMMON NORMALS: patient oriented x3 and alert GENERAL APPEARANCE: c ooperative NUTRITIONAL APPEARANCE: obese ORIENTATION/CONSCIOUSNESS: Yes awake HENMT: COMMON NORMALS: oropharynx normal Neck/C-Spine: COMMON NORMALS: no JVD Resp: COMMON NORMALS: normal respiratory effort and clear to auscultation bilaterally AUSCULTATION: clear to auscultation bilaterally Cardio: COMMON NORMALS: no JVD, regular rhythm, S1 normal heart sound present, S2 normal heart sound present and No murmurs present (Cardio) RATE: t achycardic RHYTHM: regular rhythm and abnormal rhythm irregularly irregular HEART SOUNDS: S1 normal heart sound present and S2 normal heart sound present GI: COMMON NORMALS: Normal to inspection, nondistended, normoactive bowel sounds present, Soft to palpation and non-tender PALPATION: Yes Soft to palpation Extremity: COMMON NORMALS: no joint enlargement GENERAL: Yes edema (2+) Neuro: COMMON NORMALS: patient oriented x3 and moves all extremities S ENSORIUM/ORIENTATION: Yes alert Skin: COMMON NORMALS: no rashes or lesions noted GENERAL SKIN EXAM: no rashes or lesions noted Data 06/30/23 02:53 06/30/23 02:53 A&P Assessment and plan (1) CHF (congestive heart failure): In setting of A-fib with RVR. Currently improving. Strict input output charting, daily weights. Fluid restriction up to 1500 cc. Continue with IV Lasix 40 mg twice daily. Given CKD with poor urine response will add metolazone 5 mg daily. Patient is close to achieving euvolemia. Qualifiers: Heart failure type: diastolic Heart failure chronicity: acute on chronic Qualified Code(s): I50.33 - Acute on chronic diastolic (congestive) heart failure (2) Atrial fibrillation with RVR: Appreciate cardiology recommendations. Amiodarone stopped because of history of nontolerant to medication. Continue with propafenone. Heart rate still mildly elevated. Repeat EKG. Discussed in detail with cardiology team. For now we will continue with propafenone. Will plan to follow-up as an outpatient in 1 week and if does not improve will discuss further about possible cardioversion versus ablation. He is not on anticoagulation due to prior complication with anticoagulation with intracranial hemorrhage. (3) OLLIE (acute kidney injury): Recent baseline for last 1 year has been around 1.3-1.6. Currently 1.4. CKD most likely in setting of NSAID use. Medication reconciliation done for nephrotoxic drugs. Monitor urine output. Check urine lites, urine creatinine, urine eosinophils. Check renal ultrasound to rule out hydronephrosis. (4) Chest pain: Most likely in setting of A-fib with RVR. Continue with aspirin. Check lipid panel, A1c. Also had a stress test back in January without evidence of ischemia at that time. Normal ejection fraction. Discussed with patient and his sometime stress test may be less than 10% of cases falsely negative. Nitroglycerin as needed. Monitor symptoms. (5) Physical deconditioning: (6) Chronic kidney disease: Plan Migraine headache: Gets recurrent migraines. Will give dose of Tylenol IV. Reviewed respiratory viral panel, negative. 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 HTN: Holding off on antihypertensives. Goal blood pressure less than 140/90 MAG with mean over 65. Holding off on home dose of hydralazine and metoprolol for now. Physical deconditioning: As per patient's daughter he has been having recurrent episodes of unsteadiness on feet with occasional episode of almost falls. Symptoms of started recently within the last few weeks. Will get physical therapy. Patient might benefit with home meds on discharge. Plan for the day: Continue with propafenone. Add metoprolol 25 mg twice daily. Blood pressure is better today. Strict input output charting. Current charting not appropriate as patient is incontinent. It seems patient has had 5-6 urinary voids. Heart failure symptoms improving. Switch to oral Lasix 60 mg twice daily. Hold off on any further metolazone after today. Add acetazolamide 500 mg one-time. Patient developing mild worsening contraction alkalosis than baseline. Physical therapy. CODE STATUS: Discussed again in detail with patient and family by bedside. Daughter with the DPOA. Limited resuscitation. Cardiac diet Protonix for PUD prophylaxis Heparin for DVT prophylaxis. Attestations 2 Medical Necessity Statement*: Requires further hospitalization for management of A-fib with RVR, congestive heart failure, physical deconditioning while heart failure and rate control medications were adjusted and safe discharge planning is sought. Diagnoses Acute on chronic diastolic congestive heart failure I50.33 Heart failure type: diastolic Heart failure chronicity: acute on chronic Atrial fibrillation with RVR I48.91 OLLIE (acute kidney injury) N17.9 Chest pain R07.9 Physical deconditioning R53.81 Chronic kidney disease N18.9
[2023-06-30 15:56] LABS: Anion Gap 10.1 (5-19); Blood Urea Nitrogen 16 mg/dL (8-23); Calcium 9.2 mg/dL (8.5-10.5); Chloride 88 mmol/L (98-107); Creatinine Clr Calc Pharmacy 52.7698; Glucose 141 mg/dL (65-115); Osmolality Calculated 284 mOsm/kg (285-295); Potassium 4.1 mmol/L (3.5-5.1); Sodium 135 mmol/L (136-145)
[2023-06-30 16:02] LABS: Carbon Dioxide 41 mmol/L (22-29)
[2023-06-30] MEDS: zolpidem 5 mg Tablet PO (20:30)
[2023-06-30] MEDS: tamsulosin 0.4 mg Capsule 0.400000000000000022 MG PO (20:30)
--- NOTE | 2023-06-30 21:06 | PM.PN ---
Subjective Subjective: Patient is slowly improving. The rhythm is still seems to be in atrial fibrillation with a heart rate mostly in around 100. Blood pressure seems to be stable. No fever or chills. Medications: Medication Review Details: Current Medications Acetaminophen (Acetaminophen 325 Mg Tablet) 650 mg PO Q6H PRN PRN Reason: Mild/Mod Pain Or Temp >/= 101 Albuterol Sulfate (Albuterol 2.5 Mg/3 Ml Neb) 2.5 mg INHALATION Q4H PRN PRN Reason: Shortness Of Breath Last Admin: 06/30/23 08:01 Dose: 2.5 mg Aspirin (Aspirin 81 Mg Ec Tablet) 81 mg PO QAM [facility] Last Admin: 06/30/23 06:28 Dose: 81 mg Bisacodyl (Bisacodyl 10 Mg Supp) 10 mg [place] DAILY PRN PRN Reason: CONSTIPATION Last Admin: 06/26/23 15:50 Dose: 10 mg Bupropion HCl (Bupropion Xl (24 Hr) 300 Mg Tablet) 300 mg PO DAILY [facility] Last Admin: 06/30/23 08:25 Dose: 300 mg Duloxetine HCl (Duloxetine 30 Mg Capsule) 30 mg PO QAM [facility] Last Admin: 06/30/23 06:28 Dose: 30 mg Furosemide (Furosemide 40 Mg Tablet) 40 mg PO BID@08,16 [facility] Heparin Sodium (Porcine) (Heparin 5,000 Unit/Ml Inj 1 Ml) 5,000 unit SUBCUT Q12H [facility] Last Admin: 06/30/23 17:57 Dose: 5,000 unit Hydralazine HCl (Hydralazine 50 Mg Tablet) 100 mg PO TID [facility] Last Admin: 06/25/23 14:41 Dose: Not Given Metoprolol Tartrate (Metoprolol Tartrate 50 Mg Tablet) 25 mg PO BID [facility] Last Admin: 06/30/23 10:06 Dose: 25 mg Nitroglycerin (Nitroglycerin 0.4 Mg Sublingual Tablet) 0.4 mg SUBLINGUAL Q5M PRN PRN Reason: CHEST PAIN Ondansetron HCl (Ondansetron 2 Mg/Ml Sdv 2 Ml) 4 mg IVP Q8H PRN PRN Reason: vomiting, or N/V if npo Last Admin: 06/29/23 08:34 Dose: 4 mg Oxycodone HCl (Oxycodone 5 Mg Ir Tab/Cap) 15 mg PO Q6H PRN PRN Reason: PAIN Last Admin: 06/29/23 21:45 Dose: 15 mg Pantoprazole Sodium (Pantoprazole Dr 40 Mg Tablet) 40 mg PO QAM [facility] Last Admin: 06/30/23 06:28 Dose: 40 mg Polyethylene Glycol (Polyethylene Glycol 3350 Pkt 17 Gm) 17 gm PO BID [facility] Last Admin: 06/30/23 17:57 Dose: 17 gm Propafenone HCl (Propafenone 150 Mg Tablet) 150 mg PO TID [facility] Last Admin: 06/30/23 20:30 Dose: 150 mg Tamsulosin HCl (Tamsulosin 0.4 Mg Capsule) 0.4 mg PO BEDTIME [facility] Last Admin: 06/30/23 20:30 Dose: 0.4 mg Zolpidem Tartrate (Zolpidem 5 Mg Tablet) 5 mg PO BEDTIME PRN PRN Reason: INSOMNIA Last Admin: 06/30/23 20:30 Dose: 5 mg Vitals/I&O/Wt Last Vital Signs Temp 98.2 F 06/30/23 19:49 Pulse 78 06/30/23 19:49 Resp 18 06/30/23 19:49 BP 102/69 06/30/23 19:49 Pulse Ox 95 06/30/23 19:49 O2 Del Method Nasal Cannula 06/30/23 19:49 O2 Flow Rate 2 06/30/23 19:49 06/30/23 06/30/23 06/30/23 06:59 14:59 22:59 Intake Total 480 / 1200 620 / 620 480 / 1100 Output Total 550 / 550 Balance 480 / 850 620 / 620 -70 / 550 Weight last 48 hrs Weight 299 lb Physical Exam Narrative: GENERAL: The patient is alert and oriented times three. Not in any acute distress. Morbidly obese HEENT: No significant pallor, icterus or lymphadenopathy.Oral cavity: There are no mucous membrane lesions. NECK: Trachea appears to be central. No masses noted. No JVD or thyromegaly appreciated. RESPIRATORY: Chest is symmetrical. No intercostals muscle retraction or any accessory muscle activation. There is no chest wall tenderness. Breath sounds are heard bilaterally. No rales or rhonchi heard. No evidence of any consolidation. BREASTS: Deferred. HEART: The heart sounds are normal. No S3 or S4. Short systolic murmur in the left upper border. No pericardial rub ABDOMEN: No vessel pulsations or distention. No tenderness. No organomegaly appreciated. Bowel sounds are normally heard. : Deferred. RECTAL: Deferred. LYMPHATIC: No lymphadenopathy noted in the neck. EXTREMITIES: 1+ edema both lower extremities. No cyanosis. MUSCULOSKELETAL: No acute joint deformities or swelling SKIN: There are no significant rashes or ecchymosis NEUROPSYCHIATRIC: The patient is alert and oriented x3. Appears to be in a good mood. No tremors or rigidity noted. Data 06/30/23 02:53 06/30/23 15:28 Other Labs: Laboratory Last Values WBC 6.83 10^3/uL (3.29-11.43) 06/30/23 02:53 RBC 3.62 10^6/uL (3.85-5.65) L 06/30/23 02:53 Hgb 12.00 g/dL (11.27-16.99) 06/30/23 02:53 Hct 38.0 % (37-53) 06/30/23 02:53 MCV 105.0 fl (82-101) H 06/30/23 02:53 MCH 33.1 pg (27-33) H 06/30/23 02:53 MCHC 31.6 g/dL (30-55) 06/30/23 02:53 RDW 12.5 % (12.1-15.1) 06/30/23 02:53 Plt Count 116 10^3/cmm (157-399) L 06/30/23 02:53 MPV 11.2 fL (7.4-10.4) H 06/30/23 02:53 Neut % (Auto) 55.4 % 06/30/23 02:53 Lymph % (Auto) 26.5 % 06/30/23 02:53 Pine % (Auto) 11.7 % 06/30/23 02:53 Eos % (Auto) 5.6 % 06/30/23 02:53 Baso % (Auto) 0.4 % 06/30/23 02:53 Neut # (Auto) 3.78 10^3/uL (1.8-7.7) 06/30/23 02:53 Lymph # (Auto) 1.8 10^3/uL (0.8-4.8) 06/30/23 02:53 Pine # (Auto) 0.8 10^3/uL (0.2-0.9) 06/30/23 02:53 Eos # (Auto) 0.4 10^3/uL (0.0-0.8) 06/30/23 02:53 Baso # (Auto) 0.0 10^3/uL (0.0-0.1) 06/30/23 02:53 Nucleated RBC % (auto) 0 % 06/30/23 02:53 Nucleated RBCs # 0.0 /100WBC 06/30/23 02:53 D-Dimer 0.75 ug/mLFEU (0-0.59) H 06/24/23 11:00 Sodium 135 mmol/L (136-145) L 06/30/23 15:28 Potassium 4.1 mmol/L (3.5-5.1) 06/30/23 15:28 Chloride 88 mmol/L (98-107) L 06/30/23 15:28 Carbon Dioxide 41 mmol/L (22-29) H 06/30/23 15:28 Anion Gap 10.1 (5-19) 06/30/23 15:28 BUN 16 mg/dL (8-23) 06/30/23 15:28 Creatinine 1.6 mg/dL (0.7-1.2) H 06/30/23 15:28 GFR Calculation Not Reportable 06/30/23 15:28 Glucose 141 mg/dL (65-115) H 06/30/23 15:28 POC Glucose 126 mg/dL (70-110) H 06/27/23 06:09 Estimat Average Glucose 103 06/30/23 02:53 Hemoglobin A1c 5.2 % (4.0-6.0) 06/30/23 02:53 Calculated Osmolality 284 mOsm/kg (285-295) L 06/30/23 15:28 Calcium 9.2 mg/dL (8.5-10.5) 06/30/23 15:28 Magnesium 2.1 mg/dL (1.7-2.3) 06/30/23 02:53 Iron 89 ug/dL (59-158) 06/29/23 03:52 TIBC 186 mcg/dl 06/29/23 03:52 % Saturation 47.8 % (20-50) 06/29/23 03:52 Unsat Iron Binding 97 ug/dL (112-347) L 06/29/23 03:52 Total Bilirubin 0.4 mg/dL (0.15-1.2) 06/30/23 02:53 AST 30 U/L (0-40) 06/30/23 02:53 ALT 18 U/L (0-41) 06/30/23 02:53 Alkaline Phosphatase 73 U/L (40-130) 06/30/23 02:53 Troponin T 5th Gen ng/L 81 ng/L (0-15) H 06/26/23 23:41 Troponin T Baseline 81 ng/L (0-15) H 06/24/23 11:00 Troponin T 120 Minute 78.29 ng/L (0-15) H 06/24/23 13:07 Delta Troponin T -2.71 ABS# (0-10) L 06/24/23 13:07 Troponin T Hi Sens 6Hr 84.23 ng/L (0-15) H 06/24/23 17:25 Troponin T Hi Sens 6Hr Delta 3.23 ng/L (0-12) 06/24/23 17:25 NT-Pro-B Natriuret Pep 739 pg/mL (0-450) H 06/29/23 03:52 Total Protein 5.9 g/dL (6.6-8.7) L 06/30/23 02:53 Albumin 3.6 g/dL (3.5-5.2) 06/30/23 02:53 Globulin 2.3 g/dL (1.3-4.6) 06/30/23 02:53 Triglycerides 130 mg/dL (0-150) 06/30/23 02:53 Cholesterol 187 mg/dL (0-200) 06/30/23 02:53 LDL Cholesterol, Calc 96 mg/dL (50-129) 06/30/23 02:53 Total VLDL Cholesterol 26 mg/dL (0-30) 06/30/23 02:53 HDL Cholesterol 65 mg/dL (60-100) 06/30/23 02:53 Cholesterol/HDL Ratio 2.88 mg/dL (1.0-5.00) 06/30/23 02:53 Vitamin B12 285 pg/mL (232-1245) 06/29/23 03:52 Folate 16.9 ng/mL (4.5-32.2) 06/30/23 02:53 TSH 2.00 uIU/mL (0.27-4.20) 06/24/23 11:00 Urine Color Yellow (Yellow) 06/25/23 16:25 Urine Appearance Clear (CLEAR) 06/25/23 16:25 Urine pH 5 (5-7) 06/25/23 16:25 Ur Specific [place] 1.020 (1.005-1.030) 06/25/23 16:25 Urine Protein Neg (Negative) 06/25/23 16:25 Urine Glucose (UA) Norm (Normal) 06/25/23 16:25 Urine Ketones Negative (Negative) 06/25/23 16:25 Urine Blood Neg (Negative) 06/25/23 16:25 Urine Nitrate Negative (Negative) 06/25/23 16:25 Urine Bilirubin Neg (Negative) 06/25/23 16:25 Urine Urobilinogen Norm mg/dL (Negative) 06/25/23 16:25 Ur Leukocyte Esterase Negative (Negative) 06/25/23 16:25 Ur Random Urea Nitrogn 123 mg/dL 06/29/23 21:50 Urine Creatinine 40 mg/dL (39-259) 06/29/23 21:50 Adenovirus (PCR) Not detected (NOT DETECT) 06/26/23 23:15 C. pneumoniae DNA (PCR) Not detected (NOT DETECT) 06/26/23 23:15 Coronavirus 229E (PCR) Not detected (NOT DETECT) 06/26/23 23:15 Human Metapneumovir PCR Not detected (NOT DETECT) 06/26/23 23:15 Influenza A (H1) PCR Not detected (NOT DETECT) 06/26/23 23:15 Influ A (H1/09) PCR Not detected (NOT DETECT) 06/26/23 23:15 Influenza A (H3) PCR Not detected (NOT DETECT) 06/26/23 23:15 Influenza Type A (PCR) Not detected (NOT DETECT) 06/26/23 23:15 Influenza Type B (PCR) Not detected (NOT DETECT) 06/26/23 23:15 M. pneumoniae (PCR) Not detected (NOT DETECT) 06/26/23 23:15 Parainfluenza 1 (PCR) Not detected (NOT DETECT) 06/26/23 23:15 Parainfluenza 2 (PCR) Not detected (NOT DETECT) 06/26/23 23:15 Parainfluenza 3 (PCR) Not detected (NOT DETECT) 06/26/23 23:15 Parainfluenza 4 (PCR) Not detected (NOT DETECT) 06/26/23 23:15 RSV Type A (PCR) Not detected (NOT DETECT) 06/26/23 23:15 RSV Type B (PCR) Not detected (NOT DETECT) 06/26/23 23:15 Entero/Rhino (PCR) Not detected (NOT DETECT) 06/26/23 23:15 SARS-CoV-2 (PCR) Not detected (NOT DETECT) 06/26/23 23:15 Other data: EKG from today shows atrial fibrillation with a ventricular rate of 99 bpm. Some nonspecific T wave changes. The QRS duration is within normal limits A&P Assessment and plan (1) Atrial fibrillation: Patient was on a fairly high dose of beta-ghazala. It was discontinued. I may go ahead and restart the patient on metoprolol 25 mg p.o. twice daily. This may control the heart rate better. Qualifiers: Atrial fibrillation type: unspecified Qualified Code(s): I48.91 - Unspecified atrial fibrillation (2) Acute on chronic diastolic heart failure: Patient seems to be tolerating the p.o. Lasix so far well. Will continue on this medication (3) Dyslipidemia: Continue on the current management. (4) HTN (hypertension): The blood pressure seems to be fairly under control. Will continue on the current medications. Qualifiers: Hypertension type: unspecified Qualified Code(s): I10 - Essential (primary) hypertension Plan Lopressor 25 mg p.o. twice daily Continue to monitor the heart rate and blood pressure. If he continues to remain stable, possible discharge home tomorrow Attestations Medical Necessity Statement*: Deferred to the primary Coding Level of Care Code 20705 Diagnoses Atrial fibrillation, unspecified type I48.91 Atrial fibrillation type: unspecified Acute on chronic diastolic heart failure I50.33 Dyslipidemia E78.5 Primary hypertension I10 Hypertension type: unspecified
[2023-07-01] VITALS (12 sets, daily range): BP systolic 95–128; BP diastolic 67–88; PULSE 74–98; RESP 18–24; TEMP 36.4–36.8; O2SAT 93–99
[2023-07-01 03:37] LABS: Basophils % 0.5 %; Eosinophils # 0.4 10^3/uL (0.0-0.8); Eosinophils % 5.7 %; Hematocrit 39.9 % (37-53); Lymphocytes # 1.7 10^3/uL (0.8-4.8); Lymphocytes % 23.6 %; Mean Corpuscular HGB Conc 31.6 g/dL (30-55); Mean Corpuscular Hemoglobin 33.2 pg (27-33); Mean Corpuscular Volume 105.3 fl (82-101); Mean Platelet Volume 11.7 fL (7.4-10.4); Monocytes # 0.8 10^3/uL (0.2-0.9); Monocytes % 11.3 %; Neutrophils # 4.29 10^3/uL (1.8-7.7); Neutrophils % 58.4 %; Nucleated Red Blood Cells % 0 %; Platelet Count 117 10^3/cmm (157-399); Red Blood Count 3.79 10^6/uL (3.85-5.65); Red Cell Distribution Width 12.6 % (12.1-15.1); White Blood Count 7.36 10^3/uL (3.29-11.43)
[2023-07-01 03:53] LABS: Alanine Aminotransferase 18 U/L (0-41); Albumin Level 3.5 g/dL (3.5-5.2); Alkaline Phosphatase 74 U/L (40-130); Anion Gap 6.6 (5-19); Aspartate Amino Transferase 29 U/L (0-40); Blood Urea Nitrogen 19 mg/dL (8-23); Calcium 9.3 mg/dL (8.5-10.5); Chloride 89 mmol/L (98-107); Creatinine Clr Calc Pharmacy 42.2158; Glucose 103 mg/dL (65-115); Osmolality Calculated 289 mOsm/kg (285-295); Potassium 3.6 mmol/L (3.5-5.1); Sodium 138 mmol/L (136-145); Total Bilirubin 0.5 mg/dL (0.15-1.2); Total Protein 6.5 g/dL (6.6-8.7)
[2023-07-01 03:54] LABS: Magnesium 2.4 mg/dL (1.7-2.3)
[2023-07-01 04:03] LABS: Carbon Dioxide 46 mmol/L (22-29)
[2023-07-01] MEDS: duloxetine 30 mg Capsule PO (05:36)
[2023-07-01] MEDS: heparin 5,000 unit/mL INJ 1 mL 5000 UNIT SUBCUT ×2 (05:36→18:02)
[2023-07-01] MEDS: pantoprazole DR 40 mg Tablet PO (05:36)
[2023-07-01] MEDS: aspirin 81 mg EC Tablet PO (05:36)
[2023-07-01] MEDS: albuterol 2.5 mg/3 mL Neb INHALATION ×2 (07:49→14:57)
[2023-07-01] MEDS: polyethylene glycol 3350 Pkt 17 gm PO (09:08)
[2023-07-01] MEDS: buPROPion XL (24 HR) 300 mg Tablet PO (09:08)
[2023-07-01] MEDS: metoprolol tartrate 50 mg Tablet 25 MG PO ×2 (09:08→18:02)
[2023-07-01] MEDS: propafenone 150 mg Tablet PO ×3 (09:08→21:27)
[2023-07-01] MEDS: oxyCODONE 5 mg IR Tab/Cap 15 MG PO (09:16)
--- NOTE | 2023-07-01 09:52 | PC.SOCIAL ---
IMM Update pg 2 of IMM updated and reviewed w/ patient. Copy provided and copy dated, initialed and placed in chart.
[2023-07-01] MEDS: sodium chloride 0.9% 1,000 ML 75 ML IV (10:36)
--- NOTE | 2023-07-01 14:06 | ECG_ITS ---
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 Measurements Intervals [place] Rate: 74 P: 0 IL: 0 QRS: -30 QRSD: 137 T: 35 QT: 410 QTc: 455 Interpretive Statements ATRIAL FIBRILLATION BORDERLINE LEFT AXIS DEVIATION [QRS AXIS < -20] INTRAVENTRICULAR CONDUCTION DELAY [130+ ms QRS DURATION] Compared to ECG 06/30/2023 06:35:22 No significant changes Electronically Signed On 07-01-2023 16:56:44 CDT by Derian Garcia M.D. [id number]
--- NOTE | 2023-07-01 14:27 | P.PN_ITS ---
Subjective 2 Subjective: No events overnight. Patient has remained hemodynamically stable and afebrile. Today morning seen with daughter at bedside. Getting ready for shower. Patient states he is feeling a lot better. Heart rate better controlled but blood pressures have been on and off on the softer side with lowest being of 96 systolics. Vitals/I&O/Wt Last Vital Signs Temp 98.0 F 07/01/23 11:11 Pulse 77 07/01/23 11:11 Resp 23 H 07/01/23 11:11 BP 95/77 07/01/23 11:11 Pulse Ox 93 07/01/23 11:11 O2 Del Method Nasal Cannula 07/01/23 11:11 O2 Flow Rate 2 07/01/23 07:50 06/30/23 07/01/23 07/01/23 22:59 06:59 14:59 Intake Total 480 / 1100 140 / 1240 240 / 240 Output Total 550 / 550 125 / 125 Balance -70 / 550 140 / 690 115 / 115 Weight last 48 hrs Weight 134.717 kg Physical Exam 2 Narrative: Accompanied by family Const: COMMON NORMALS: patient oriented x3 and alert GENERAL APPEARANCE: c ooperative NUTRITIONAL APPEARANCE: obese ORIENTATION/CONSCIOUSNESS: Yes awake HENMT: COMMON NORMALS: oropharynx normal Neck/C-Spine: COMMON NORMALS: no JVD Resp: COMMON NORMALS: normal respiratory effort and clear to auscultation bilaterally AUSCULTATION: clear to auscultation bilaterally Cardio: COMMON NORMALS: no JVD, regular rhythm, S1 normal heart sound present, S2 normal heart sound present and No murmurs present (Cardio) RATE: t achycardic RHYTHM: regular rhythm and abnormal rhythm irregularly irregular HEART SOUNDS: S1 normal heart sound present and S2 normal heart sound present GI: COMMON NORMALS: Normal to inspection, nondistended, normoactive bowel sounds present, Soft to palpation and non-tender PALPATION: Yes Soft to palpation Extremity: COMMON NORMALS: no joint enlargement GENERAL: Yes edema (2+) Neuro: COMMON NORMALS: patient oriented x3 and moves all extremities S ENSORIUM/ORIENTATION: Yes alert Skin: COMMON NORMALS: no rashes or lesions noted GENERAL SKIN EXAM: no rashes or lesions noted Data 07/01/23 03:00 07/01/23 03:00 A&P Assessment and plan (1) CHF (congestive heart failure): In setting of A-fib with RVR. Currently improving. Strict input output charting, daily weights. Fluid restriction up to 1500 cc. Continue with IV Lasix 40 mg twice daily. Given CKD with poor urine response will add metolazone 5 mg daily. Patient is close to achieving euvolemia. Qualifiers: Heart failure type: diastolic Heart failure chronicity: acute on chronic Qualified Code(s): I50.33 - Acute on chronic diastolic (congestive) heart failure (2) Atrial fibrillation with RVR: Appreciate cardiology recommendations. Amiodarone stopped because of history of nontolerant to medication. Continue with propafenone. Heart rate still mildly elevated. Repeat EKG. Discussed in detail with cardiology team. For now we will continue with propafenone. Will plan to follow-up as an outpatient in 1 week and if does not improve will discuss further about possible cardioversion versus ablation. He is not on anticoagulation due to prior complication with anticoagulation with intracranial hemorrhage. (3) OLLIE (acute kidney injury): Recent baseline for last 1 year has been around 1.3-1.6. Currently 1.4. CKD most likely in setting of NSAID use. Medication reconciliation done for nephrotoxic drugs. Monitor urine output. Check urine lites, urine creatinine, urine eosinophils. Check renal ultrasound to rule out hydronephrosis. (4) Chest pain: Most likely in setting of A-fib with RVR. Continue with aspirin. Check lipid panel, A1c. Also had a stress test back in January without evidence of ischemia at that time. Normal ejection fraction. Discussed with patient and his sometime stress test may be less than 10% of cases falsely negative. Nitroglycerin as needed. Monitor symptoms. (5) Physical deconditioning: (6) Chronic kidney disease: Plan Migraine headache: Gets recurrent migraines. Will give dose of Tylenol IV. Reviewed respiratory viral panel, negative. 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 HTN: Holding off on antihypertensives. Goal blood pressure less than 140/90 MAG with mean over 65. Holding off on home dose of hydralazine and metoprolol for now. Physical deconditioning: As per patient's daughter he has been having recurrent episodes of unsteadiness on feet with occasional episode of almost falls. Symptoms of started recently within the last few weeks. Will get physical therapy. Patient might benefit with home meds on discharge. Plan for the day: Heart rate better controlled. Continue with current dose of propafenone and metoprolol. Continue to monitor blood pressures. Goal blood pressure less than 140/90 mmHg with mean over 65. Patient has developed mild OLLIE. Urine output has been difficult to measure given recurrent episodes of urinary incontinence. Hold off on further diuresis for today. Gentle IV hydration with normal saline at 75 cc/h for 1 L. Repeat BMP in afternoon and then in AM. Discharge plan: Plan to discharge in next 24 hours if renal functions improve or remain stable. CODE STATUS: Discussed again in detail with patient and family by bedside. Daughter with the DPOA. Limited resuscitation. Cardiac diet Protonix for PUD prophylaxis Heparin for DVT prophylaxis. Attestations 2 Medical Necessity Statement*: Requires further hospitalization for management of OLLIE the patient was admitted with congestive heart failure and A-fib with RVR Coding Level of Care Code Acute Code for Chg Fwd Diagnoses Acute on chronic diastolic congestive heart failure I50.33 Heart failure type: diastolic Heart failure chronicity: acute on chronic Atrial fibrillation with RVR I48.91 OLLIE (acute kidney injury) N17.9 Chest pain R07.9 Physical deconditioning R53.81 Chronic kidney disease N18.9
[2023-07-01 15:24] LABS: Anion Gap 8.8 (5-19); Blood Urea Nitrogen 21 mg/dL (8-23); Calcium 9.4 mg/dL (8.5-10.5); Chloride 91 mmol/L (98-107); Creatinine Clr Calc Pharmacy 36.5736; Glucose 107 mg/dL (65-115); Osmolality Calculated 293 mOsm/kg (285-295); Potassium 3.8 mmol/L (3.5-5.1); Sodium 140 mmol/L (136-145)
[2023-07-01 15:40] LABS: Carbon Dioxide 44 mmol/L (22-29)
--- NOTE | 2023-07-01 20:48 | P.PN_ITS ---
Subjective 2 Subjective: The patient's heart rate is in the 70s and 80s. Still remains in atrial fibrillation. He has been getting up and slowly moving around with a walker. Denies any chest pain. No fever or chills. No cough. Medications: Medication Review Details: Current Medications Acetaminophen (Acetaminophen 325 Mg Tablet) 650 mg PO Q6H PRN PRN Reason: Mild/Mod Pain Or Temp >/= 101 Albuterol Sulfate (Albuterol 2.5 Mg/3 Ml Neb) 2.5 mg INHALATION Q4H PRN PRN Reason: Shortness Of Breath Last Admin: 07/01/23 14:57 Dose: 2.5 mg Aspirin (Aspirin 81 Mg Ec Tablet) 81 mg PO [facility] Last Admin: 07/01/23 05:36 Dose: 81 mg Bisacodyl (Bisacodyl 10 Mg Supp) 10 mg VT DAILY PRN PRN Reason: CONSTIPATION Last Admin: 06/26/23 15:50 Dose: 10 mg Bupropion HCl (Bupropion Xl (24 Hr) 300 Mg Tablet) 300 mg PO DAILY [facility] Last Admin: 07/01/23 09:08 Dose: 300 mg Duloxetine HCl (Duloxetine 30 Mg Capsule) 30 mg PO [facility] Last Admin: 07/01/23 05:36 Dose: 30 mg Heparin Sodium (Porcine) (Heparin 5,000 Unit/Ml Inj 1 Ml) 5,000 unit SUBCUT Q12H [facility] Last Admin: 07/01/23 18:02 Dose: 5,000 unit Hydralazine HCl (Hydralazine 50 Mg Tablet) 100 mg PO TID [facility] Last Admin: 06/25/23 14:41 Dose: Not Given Sodium Chloride (Sodium Chloride 0.9%) 1,000 mls @ 75 mls/hr IV .[id number] [facility] Stop: 07/01/23 22:49 Last Admin: 07/01/23 10:36 Dose: 75 mls/hr Metoprolol Tartrate (Metoprolol Tartrate 50 Mg Tablet) 25 mg PO BID [facility] Last Admin: 07/01/23 18:02 Dose: 25 mg Nitroglycerin (Nitroglycerin 0.4 Mg Sublingual Tablet) 0.4 mg SUBLINGUAL Q5M PRN PRN Reason: CHEST PAIN Ondansetron HCl (Ondansetron 2 Mg/Ml Sdv 2 Ml) 4 mg IVP Q8H PRN PRN Reason: vomiting, or N/V if npo Last Admin: 06/29/23 08:34 Dose: 4 mg Oxycodone HCl (Oxycodone 5 Mg Ir Tab/Cap) 15 mg PO Q6H PRN PRN Reason: PAIN Last Admin: 07/01/23 09:16 Dose: 15 mg Pantoprazole Sodium (Pantoprazole Dr 40 Mg Tablet) 40 mg PO QAM [facility] Last Admin: 07/01/23 05:36 Dose: 40 mg Polyethylene Glycol (Polyethylene Glycol 3350 Pkt 17 Gm) 17 gm PO BID [facility] Last Admin: 07/01/23 19:46 Dose: Not Given Propafenone HCl (Propafenone 150 Mg Tablet) 150 mg PO TID [facility] Last Admin: 07/01/23 16:24 Dose: 150 mg Tamsulosin HCl (Tamsulosin 0.4 Mg Capsule) 0.4 mg PO BEDTIME [facility] Last Admin: 06/30/23 20:30 Dose: 0.4 mg Zolpidem Tartrate (Zolpidem 5 Mg Tablet) 5 mg PO BEDTIME PRN PRN Reason: INSOMNIA Last Admin: 06/30/23 20:30 Dose: 5 mg Vitals/I&O/Wt Last Vital Signs Temp 97.9 F 07/01/23 16:00 Pulse 77 07/01/23 16:00 Resp 19 H 07/01/23 16:00 BP 128/88 07/01/23 16:00 Pulse Ox 94 07/01/23 16:00 O2 Del Method Nasal Cannula 07/01/23 16:00 O2 Flow Rate 2 07/01/23 14:57 07/01/23 07/01/23 07/01/23 06:59 14:59 22:59 Intake Total 140 / 1240 240 / 240 Output Total 125 / 125 Balance 140 / 690 115 / 115 Weight last 48 hrs Weight 297 lb Physical Exam 2 Narrative: GENERAL: The patient is alert and oriented times three. Not in any acute distress. Morbidly obese HEENT: No significant pallor, icterus or lymphadenopathy.Oral cavity: There are no mucous membrane lesions. NECK: Trachea appears to be central. No masses noted. No JVD or thyromegaly appreciated. RESPIRATORY: Chest is symmetrical. No intercostals muscle retraction or any accessory muscle activation. There is no chest wall tenderness. Breath sounds are heard bilaterally. No rales or rhonchi heard. No evidence of any consolidation. BREASTS: Deferred. HEART: The heart sounds are normal. No S3 or S4. Short systolic murmur in the left upper border. No pericardial rub ABDOMEN: No vessel pulsations or distention. No tenderness. No organomegaly appreciated. Bowel sounds are normally heard. : Deferred. RECTAL: Deferred. LYMPHATIC: No lymphadenopathy noted in the neck. EXTREMITIES: 1+ edema both lower extremities. MUSCULOSKELETAL: No acute joint deformities or swelling SKIN: There are no significant rashes or ecchymosis NEUROPSYCHIATRIC: The patient is alert and oriented x3. Appears to be in a good mood. No tremors or rigidity noted. Data 07/01/23 03:00 07/01/23 14:55 Other Labs: Laboratory Last Values WBC 7.36 10^3/uL (3.29-11.43) 07/01/23 03:00 RBC 3.79 10^6/uL (3.85-5.65) L 07/01/23 03:00 Hgb 12.60 g/dL (11.27-16.99) 07/01/23 03:00 Hct 39.9 % (37-53) 07/01/23 03:00 MCV 105.3 fl (82-101) H 07/01/23 03:00 MCH 33.2 pg (27-33) H 07/01/23 03:00 MCHC 31.6 g/dL (30-55) 07/01/23 03:00 RDW 12.6 % (12.1-15.1) 07/01/23 03:00 Plt Count 117 10^3/cmm (157-399) L 07/01/23 03:00 MPV 11.7 fL (7.4-10.4) H 07/01/23 03:00 Neut % (Auto) 58.4 % 07/01/23 03:00 Lymph % (Auto) 23.6 % 07/01/23 03:00 [place] % (Auto) 11.3 % 07/01/23 03:00 Eos % (Auto) 5.7 % 07/01/23 03:00 Baso % (Auto) 0.5 % 07/01/23 03:00 Neut # (Auto) 4.29 10^3/uL (1.8-7.7) 07/01/23 03:00 Lymph # (Auto) 1.7 10^3/uL (0.8-4.8) 07/01/23 03:00 [place] # (Auto) 0.8 10^3/uL (0.2-0.9) 07/01/23 03:00 Eos # (Auto) 0.4 10^3/uL (0.0-0.8) 07/01/23 03:00 Baso # (Auto) 0.0 10^3/uL (0.0-0.1) 07/01/23 03:00 Nucleated RBC % (auto) 0 % 07/01/23 03:00 Nucleated RBCs # 0.0 /100WBC 07/01/23 03:00 D-Dimer 0.75 ug/mLFEU (0-0.59) H 06/24/23 11:00 Sodium 140 mmol/L (136-145) 07/01/23 14:55 Potassium 3.8 mmol/L (3.5-5.1) 07/01/23 14:55 Chloride 91 mmol/L (98-107) L 07/01/23 14:55 Carbon Dioxide 44 mmol/L (22-29) H* 07/01/23 14:55 Anion Gap 8.8 (5-19) 07/01/23 14:55 BUN 21 mg/dL (8-23) 07/01/23 14:55 Creatinine 2.3 mg/dL (0.7-1.2) H 07/01/23 14:55 GFR Calculation Not Reportable 07/01/23 14:55 Glucose 107 mg/dL (65-115) 07/01/23 14:55 POC Glucose 126 mg/dL (70-110) H 06/27/23 06:09 Estimat Average Glucose 103 06/30/23 02:53 Hemoglobin A1c 5.2 % (4.0-6.0) 06/30/23 02:53 Calculated Osmolality 293 mOsm/kg (285-295) 07/01/23 14:55 Calcium 9.4 mg/dL (8.5-10.5) 07/01/23 14:55 Magnesium 2.4 mg/dL (1.7-2.3) H 07/01/23 03:00 Iron 89 ug/dL (59-158) 06/29/23 03:52 TIBC 186 mcg/dl 06/29/23 03:52 % Saturation 47.8 % (20-50) 06/29/23 03:52 Unsat Iron Binding 97 ug/dL (112-347) L 06/29/23 03:52 Total Bilirubin 0.5 mg/dL (0.15-1.2) 07/01/23 03:00 AST 29 U/L (0-40) 07/01/23 03:00 ALT 18 U/L (0-41) 07/01/23 03:00 Alkaline Phosphatase 74 U/L (40-130) 07/01/23 03:00 Troponin T 5th Gen ng/L 81 ng/L (0-15) H 06/26/23 23:41 Troponin T Baseline 81 ng/L (0-15) H 06/24/23 11:00 Troponin T 120 Minute 78.29 ng/L (0-15) H 06/24/23 13:07 Delta Troponin T -2.71 ABS# (0-10) L 06/24/23 13:07 Troponin T Hi Sens 6Hr 84.23 ng/L (0-15) H 06/24/23 17:25 Troponin T Hi Sens 6Hr Delta 3.23 ng/L (0-12) 06/24/23 17:25 NT-Pro-B Natriuret Pep 739 pg/mL (0-450) H 06/29/23 03:52 Total Protein 6.5 g/dL (6.6-8.7) L 07/01/23 03:00 Albumin 3.5 g/dL (3.5-5.2) 07/01/23 03:00 Globulin 3.0 g/dL (1.3-4.6) 07/01/23 03:00 Triglycerides 130 mg/dL (0-150) 06/30/23 02:53 Cholesterol 187 mg/dL (0-200) 06/30/23 02:53 LDL Cholesterol, Calc 96 mg/dL (50-129) 06/30/23 02:53 Total VLDL Cholesterol 26 mg/dL (0-30) 06/30/23 02:53 HDL Cholesterol 65 mg/dL (60-100) 06/30/23 02:53 Cholesterol/HDL Ratio 2.88 mg/dL (1.0-5.00) 06/30/23 02:53 Vitamin B12 285 pg/mL (232-1245) 06/29/23 03:52 Folate 16.9 ng/mL (4.5-32.2) 06/30/23 02:53 TSH 2.00 uIU/mL (0.27-4.20) 06/24/23 11:00 Urine Color Yellow (Yellow) 06/25/23 16:25 Urine Appearance Clear (CLEAR) 06/25/23 16:25 Urine pH 5 (5-7) 06/25/23 16:25 Ur Specific [place] 1.020 (1.005-1.030) 06/25/23 16:25 Urine Protein Neg (Negative) 06/25/23 16:25 Urine Glucose (UA) Norm (Normal) 06/25/23 16:25 Urine Ketones Negative (Negative) 06/25/23 16:25 Urine Blood Neg (Negative) 06/25/23 16:25 Urine Nitrate Negative (Negative) 06/25/23 16:25 Urine Bilirubin Neg (Negative) 06/25/23 16:25 Urine Urobilinogen Norm mg/dL (Negative) 06/25/23 16:25 Ur Leukocyte Esterase Negative (Negative) 06/25/23 16:25 Ur Random Urea Nitrogn 123 mg/dL 06/29/23 21:50 Urine Creatinine 40 mg/dL (39-259) 06/29/23 21:50 Adenovirus (PCR) Not detected (NOT DETECT) 06/26/23 23:15 C. pneumoniae DNA (PCR) Not detected (NOT DETECT) 06/26/23 23:15 Coronavirus 229E (PCR) Not detected (NOT DETECT) 06/26/23 23:15 Human Metapneumovir PCR Not detected (NOT DETECT) 06/26/23 23:15 Influenza A (H1) PCR Not detected (NOT DETECT) 06/26/23 23:15 Influ A (H1/09) PCR Not detected (NOT DETECT) 06/26/23 23:15 Influenza A (H3) PCR Not detected (NOT DETECT) 06/26/23 23:15 Influenza Type A (PCR) Not detected (NOT DETECT) 06/26/23 23:15 Influenza Type B (PCR) Not detected (NOT DETECT) 06/26/23 23:15 M. pneumoniae (PCR) Not detected (NOT DETECT) 06/26/23 23:15 Parainfluenza 1 (PCR) Not detected (NOT DETECT) 06/26/23 23:15 Parainfluenza 2 (PCR) Not detected (NOT DETECT) 06/26/23 23:15 Parainfluenza 3 (PCR) Not detected (NOT DETECT) 06/26/23 23:15 Parainfluenza 4 (PCR) Not detected (NOT DETECT) 06/26/23 23:15 RSV Type A (PCR) Not detected (NOT DETECT) 06/26/23 23:15 RSV Type B (PCR) Not detected (NOT DETECT) 06/26/23 23:15 Entero/Rhino (PCR) Not detected (NOT DETECT) 06/26/23 23:15 SARS-CoV-2 (PCR) Not detected (NOT DETECT) 06/26/23 23:15 A&P Assessment and plan (1) Atrial fibrillation: Patient seems to be tolerating the lower dose of metoprolol so far well. The blood pressure is somewhat soft. May continue on the current dose of propafenone because of the hepatic metabolism Qualifiers: Atrial fibrillation type: unspecified Qualified Code(s): I48.91 - Unspecified atrial fibrillation (2) Acute on chronic diastolic heart failure: Patient seems to be tolerating the p.o. Lasix so far well. Will continue on this medication (3) Dyslipidemia: Continue on the current management. (4) HTN (hypertension): Systolic blood pressure is around 100. May continue on the current medications. Qualifiers: Hypertension type: unspecified Qualified Code(s): I10 - Essential (primary) hypertension (5) OLLIE (acute kidney injury): The rising BUN and creatinine, etiology? May need to consider cutting back on the dose of the hydralazine if the creatinine level continues to go up. Plan Repeat BMP in the morning Attestations 2 Medical Necessity Statement*: Deferred to the primary Coding Level of Care Code 70820 Diagnoses Atrial fibrillation, unspecified type I48.91 Atrial fibrillation type: unspecified Acute on chronic diastolic heart failure I50.33 Dyslipidemia E78.5 Primary hypertension I10 Hypertension type: unspecified OLLIE (acute kidney injury) N17.9
[2023-07-01] MEDS: zolpidem 5 mg Tablet PO (21:27)
[2023-07-01] MEDS: tamsulosin 0.4 mg Capsule 0.400000000000000022 MG PO (21:27)
[2023-07-02] VITALS (112 sets, daily range): BP systolic 86–122; BP diastolic 63–83; PULSE 66–92; RESP 14–35; TEMP 36.3–37; O2SAT 87–100; BMI 42.6
[2023-07-02 04:09] LABS: Basophils # 0.1 10^3/uL (0.0-0.1); Basophils % 0.7 %; Eosinophils # 0.3 10^3/uL (0.0-0.8); Lymphocytes # 1.8 10^3/uL (0.8-4.8); Lymphocytes % 24.4 %; Mean Corpuscular HGB Conc 31.6 g/dL (30-55); Mean Corpuscular Hemoglobin 33.5 pg (27-33); Mean Corpuscular Volume 106.1 fl (82-101); Mean Platelet Volume 11.5 fL (7.4-10.4); Monocytes # 0.8 10^3/uL (0.2-0.9); Monocytes % 10.9 %; Neutrophils # 4.43 10^3/uL (1.8-7.7); Neutrophils % 59.6 %; Nucleated Red Blood Cells % 0 %; Platelet Count 125 10^3/cmm (157-399); Red Blood Count 3.58 10^6/uL (3.85-5.65); Red Cell Distribution Width 12.6 % (12.1-15.1); White Blood Count 7.43 10^3/uL (3.29-11.43)
[2023-07-02 04:31] LABS: Alanine Aminotransferase 17 U/L (0-41); Albumin Level 3.5 g/dL (3.5-5.2); Alkaline Phosphatase 71 U/L (40-130); Aspartate Amino Transferase 28 U/L (0-40); Blood Urea Nitrogen 22 mg/dL (8-23); Chloride 92 mmol/L (98-107); Creatinine Clr Calc Pharmacy 36.5905; Globulin 2.7 g/dL (1.3-4.6); Glucose 104 mg/dL (65-115); Osmolality Calculated 294 mOsm/kg (285-295); Sodium 140 mmol/L (136-145); Total Bilirubin 0.4 mg/dL (0.15-1.2); Total Protein 6.2 g/dL (6.6-8.7)
[2023-07-02 04:32] LABS: Magnesium 2.5 mg/dL (1.7-2.3)
[2023-07-02 04:37] LABS: Carbon Dioxide 44 mmol/L (22-29)
[2023-07-02] MEDS: aspirin 81 mg EC Tablet PO (05:47)
[2023-07-02] MEDS: duloxetine 30 mg Capsule PO (05:47)
[2023-07-02] MEDS: heparin 5,000 unit/mL INJ 1 mL 5000 UNIT SUBCUT ×2 (05:47→18:20)
[2023-07-02] MEDS: pantoprazole DR 40 mg Tablet PO (05:47)
[2023-07-02] MEDS: propafenone 150 mg Tablet PO ×3 (09:07→22:23)
[2023-07-02] MEDS: buPROPion XL (24 HR) 300 mg Tablet PO (09:07)
[2023-07-02] MEDS: albuterol 2.5 mg/3 mL Neb INHALATION (09:24)
[2023-07-02] MEDS: pyridostigmine 60 mg Tablet PO ×2 (10:08→18:19)
[2023-07-02] MEDS: midodrine 5 mg TABLET PO ×3 (10:08→22:23)
--- NOTE | 2023-07-02 13:08 | P.PN_ITS ---
Subjective 2 Subjective: Documents overnight. Patient denies any nausea, vomiting, headache. States he is feeling stable. Denies any new complaints. Continues to remain on minimal to 2 L of oxygen supplementation and mentating saturation over 95%. Heart rate is well-controlled in 70s. Patient himself denies any nausea or vomiting. Blood pressure soft. Did have episode of hypotension on standing up associated with mild dizziness while working with physical therapy. Vitals/I&O/Wt Last Vital Signs Temp 97.4 F L 07/02/23 11:05 Pulse 74 07/02/23 11:05 Resp 29 H 07/02/23 11:05 BP 108/68 07/02/23 11:05 Pulse Ox 99 07/02/23 11:05 O2 Del Method Nasal Cannula 07/02/23 11:05 O2 Flow Rate 2 07/02/23 09:26 07/01/23 07/02/23 07/02/23 22:59 06:59 14:59 Intake Total 100 / 340 1000 / 1340 360 / 360 Balance 100 / 215 1000 / 1215 360 / 360 Weight last 48 hrs Weight 134.83 kg Weight 134.717 kg Physical Exam 2 Narrative: Accompanied by family Const: COMMON NORMALS: patient oriented x3 and alert GENERAL APPEARANCE: c ooperative NUTRITIONAL APPEARANCE: obese ORIENTATION/CONSCIOUSNESS: Yes awake HENMT: COMMON NORMALS: oropharynx normal Neck/C-Spine: COMMON NORMALS: no JVD Resp: COMMON NORMALS: normal respiratory effort and clear to auscultation bilaterally AUSCULTATION: clear to auscultation bilaterally Cardio: COMMON NORMALS: no JVD, regular rhythm, S1 normal heart sound present, S2 normal heart sound present and No murmurs present (Cardio) RATE: t achycardic RHYTHM: regular rhythm and abnormal rhythm irregularly irregular HEART SOUNDS: S1 normal heart sound present and S2 normal heart sound present GI: COMMON NORMALS: Normal to inspection, nondistended, normoactive bowel sounds present, Soft to palpation and non-tender PALPATION: Yes Soft to palpation Extremity: COMMON NORMALS: no joint enlargement GENERAL: Yes edema (2+) Neuro: COMMON NORMALS: patient oriented x3 and moves all extremities S ENSORIUM/ORIENTATION: Yes alert Skin: COMMON NORMALS: no rashes or lesions noted GENERAL SKIN EXAM: no rashes or lesions noted Data 07/02/23 03:29 07/02/23 03:29 A&P Assessment and plan (1) CHF (congestive heart failure): In setting of A-fib with RVR. Euvolemic to slightly dehydrated right now. Patient on 2 L of oxygen supplementation saturating more than 95%. Urine output not able to properly being measured because of episodes of incontinence. Creatinine slightly trending up yesterday but stable today. Gentle hydration to be continued for 500 more cc. Hold off on diuresis for now. Hold off on fluid restriction. Will restart Lasix orally within next 24 to 48 hours. Qualifiers: Heart failure type: diastolic Heart failure chronicity: acute on chronic Qualified Code(s): I50.33 - Acute on chronic diastolic (congestive) heart failure (2) Atrial fibrillation with RVR: Appreciate cardiology recommendations. Amiodarone stopped because of history of nontolerant to medication. Rate controlled. Continue metoprolol at current dose. Continue with metoprolol 25 mg twice daily. He is not on anticoagulation due to prior complication with anticoagulation with intracranial hemorrhage. (3) Orthostatic hypotension: Goal blood pressure less than 140/90 mmHg with mean over 65. Blood pressures have remained soft. Orthostatic positive. Symptomatic. Continue with metoprolol to control A-fib with RVR. Start on midodrine 5 mg oral 3 times daily along with pyridostigmine 60 mg twice daily. Will wean and uptitrate depending on her response. Check orthostatic daily for now. (4) OLLIE (acute kidney injury): Recent baseline for last 1 year has been around 1.3-1.6. Creatinine has been steadily trending up and has been stable around 2.3 for last 24 hours. Unable to measure urine output given patient being incontinent. OLLIE on CKD most likely in setting of borderline blood pressures, A-fib with RVR, NSAID use. CRS less likely for now. Gentle IV hydration as above. Monitor BMP daily. (5) Chest pain: Most likely in setting of A-fib with RVR. Continue with aspirin. Appreciate lipid panel, A1c. Also had a stress test back in January without evidence of ischemia at that time. Normal ejection fraction. Discussed with patient and his sometime stress test may be less than 10% of cases falsely negative. Nitroglycerin as needed. Monitor symptoms. (6) Physical deconditioning: (7) Chronic kidney disease: Plan Migraine headache: Gets recurrent migraines. Will give dose of Tylenol IV. Reviewed respiratory viral panel, negative. 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 HTN: Holding off on antihypertensives. Goal blood pressure less than 140/90 MAG with mean over 65. Holding off on home dose of hydralazine and metoprolol for now. Physical deconditioning: As per patient's daughter he has been having recurrent episodes of unsteadiness on feet with occasional episode of almost falls. Symptoms of started recently within the last few weeks. Will get physical therapy. Patient might benefit with home meds on discharge. Discharge plan: Plan to discharge in next 24 hours if renal functions improve or remain stable. CODE STATUS: Discussed again in detail with patient and family by bedside. Daughter with the DPOA. Limited resuscitation. Cardiac diet Protonix for PUD prophylaxis Heparin for DVT prophylaxis. Attestations 2 Medical Necessity Statement*: Requires further hospitalization for management of OLLIE on CKD in a patient who was admitted with CHF, A-fib with RVR, orthostatic hypotension Diagnoses Acute on chronic diastolic congestive heart failure I50.33 Heart failure type: diastolic Heart failure chronicity: acute on chronic Atrial fibrillation with RVR I48.91 Orthostatic hypotension I95.1 OLLIE (acute kidney injury) N17.9 Chest pain R07.9 Physical deconditioning R53.81 Chronic kidney disease N18.9
--- NOTE | 2023-07-02 15:15 | PC.NURSE ---
Order written to infuse 500ml NS and then stop. Ordered was a 1000 ml bag; however, when I went to hang the medication, [facility] would not allow me to scan the 1000 ml bag of NS. Called pharmacy and waited approx 30+ minutes for the order to be fixed as I was instructed to return the original bag and they would fix the order to scan. I went ahead and went t=with the original bag and order and started the infusion and when I finally had time, I ordered in such a way that we were able to use the 1000 ml bag.
[2023-07-02] MEDS: sodium chloride 0.9% 1,000 ML 75 ML IV (15:45)
--- NOTE | 2023-07-02 16:54 | P.PN_ITS ---
Subjective 2 Subjective: Patient seems to have a persistently low blood pressure. Also was found to have a significant orthostatic drop Medications: Medication Review Details: Current Medications Acetaminophen (Acetaminophen 325 Mg Tablet) 650 mg PO Q6H PRN PRN Reason: Mild/Mod Pain Or Temp >/= 101 Albuterol Sulfate (Albuterol 2.5 Mg/3 Ml Neb) 2.5 mg INHALATION Q4H PRN PRN Reason: Shortness Of Breath Last Admin: 07/02/23 09:24 Dose: 2.5 mg Aspirin (Aspirin 81 Mg Ec Tablet) 81 mg PO QAM [facility] Last Admin: 07/02/23 05:47 Dose: 81 mg Bisacodyl (Bisacodyl 10 Mg Supp) 10 mg ME DAILY PRN PRN Reason: CONSTIPATION Last Admin: 06/26/23 15:50 Dose: 10 mg Bupropion HCl (Bupropion Xl (24 Hr) 300 Mg Tablet) 300 mg PO DAILY [facility] Last Admin: 07/02/23 09:07 Dose: 300 mg Duloxetine HCl (Duloxetine 30 Mg Capsule) 30 mg PO QAM [facility] Last Admin: 07/02/23 05:47 Dose: 30 mg Heparin Sodium (Porcine) (Heparin 5,000 Unit/Ml Inj 1 Ml) 5,000 unit SUBCUT Q12H [facility] Last Admin: 07/02/23 05:47 Dose: 5,000 unit Hydralazine HCl (Hydralazine 50 Mg Tablet) 100 mg PO TID [facility] Last Admin: 06/25/23 14:41 Dose: Not Given Sodium Chloride (Sodium Chloride 0.9%) 1,000 mls @ 75 mls/hr IV .[id number] [facility] Stop: 07/02/23 19:54 Metoprolol Tartrate (Metoprolol Tartrate 50 Mg Tablet) 25 mg PO BID [facility] Last Admin: 07/02/23 09:54 Dose: Not Given Midodrine (Midodrine 5 Mg Tablet) 5 mg PO TID [facility] Last Admin: 07/02/23 15:16 Dose: 5 mg Nitroglycerin (Nitroglycerin 0.4 Mg Sublingual Tablet) 0.4 mg SUBLINGUAL Q5M PRN PRN Reason: CHEST PAIN Ondansetron HCl (Ondansetron 2 Mg/Ml Sdv 2 Ml) 4 mg IVP Q8H PRN PRN Reason: vomiting, or N/V if npo Last Admin: 06/29/23 08:34 Dose: 4 mg Oxycodone HCl (Oxycodone 5 Mg Ir Tab/Cap) 15 mg PO Q6H PRN PRN Reason: PAIN Last Admin: 07/01/23 09:16 Dose: 15 mg Pantoprazole Sodium (Pantoprazole Dr 40 Mg Tablet) 40 mg PO QAM [facility] Last Admin: 07/02/23 05:47 Dose: 40 mg Polyethylene Glycol (Polyethylene Glycol 3350 Pkt 17 Gm) 17 gm PO BID [facility] Last Admin: 07/02/23 09:04 Dose: Not Given Propafenone HCl (Propafenone 150 Mg Tablet) 150 mg PO TID [facility] Last Admin: 07/02/23 15:16 Dose: 150 mg Pyridostigmine [place] (Pyridostigmine 60 Mg Tablet) 60 mg PO BID [facility] Last Admin: 07/02/23 10:08 Dose: 60 mg Tamsulosin HCl (Tamsulosin 0.4 Mg Capsule) 0.4 mg PO BEDTIME [facility] Last Admin: 07/01/23 21:27 Dose: 0.4 mg Zolpidem Tartrate (Zolpidem 5 Mg Tablet) 5 mg PO BEDTIME PRN PRN Reason: INSOMNIA Last Admin: 07/01/23 21:27 Dose: 5 mg Vitals/I&O/Wt Last Vital Signs Temp 97.4 F L 07/02/23 11:05 Pulse 74 07/02/23 15:38 Resp 29 H 07/02/23 11:05 BP 92/66 07/02/23 15:38 Pulse Ox 99 07/02/23 11:05 O2 Del Method Nasal Cannula 07/02/23 11:05 O2 Flow Rate 2 07/02/23 09:26 07/02/23 07/02/23 07/02/23 06:59 14:59 22:59 Intake Total 1000 / 1340 360 / 360 Balance 1000 / 1215 360 / 360 Weight last 48 hrs Weight 297 lb 4 oz Weight 297 lb Physical Exam 2 Narrative: GENERAL: The patient is alert and oriented times three. Not in any acute distress. Morbidly obese HEENT: No significant pallor, icterus or lymphadenopathy.Oral cavity: There are no mucous membrane lesions. NECK: Trachea appears to be central. No masses noted. No JVD or thyromegaly appreciated. RESPIRATORY: Chest is symmetrical. No intercostals muscle retraction or any accessory muscle activation. There is no chest wall tenderness. Breath sounds are heard bilaterally. No rales or rhonchi heard. No evidence of any consolidation. BREASTS: Deferred. HEART: The heart sounds are normal. No S3 or S4. Short systolic murmur in the left upper border. No pericardial rub ABDOMEN: No vessel pulsations or distention. No tenderness. No organomegaly appreciated. Bowel sounds are normally heard. : Deferred. RECTAL: Deferred. LYMPHATIC: No lymphadenopathy noted in the neck. EXTREMITIES: 1+ edema both lower extremities. MUSCULOSKELETAL: No acute joint deformities or swelling SKIN: There are no significant rashes or ecchymosis NEUROPSYCHIATRIC: The patient is alert and oriented x3. Appears to be in a good mood. No tremors or rigidity noted. Data 07/04/23 05:37 07/04/23 05:37 Other Labs: Laboratory Last Values WBC 7.43 10^3/uL (3.29-11.43) 07/02/23 03:29 RBC 3.58 10^6/uL (3.85-5.65) L 07/02/23 03:29 Hgb 12.00 g/dL (11.27-16.99) 07/02/23 03:29 Hct 38.0 % (37-53) 07/02/23 03:29 MCV 106.1 fl (82-101) H 07/02/23 03:29 MCH 33.5 pg (27-33) H 07/02/23 03:29 MCHC 31.6 g/dL (30-55) 07/02/23 03:29 RDW 12.6 % (12.1-15.1) 07/02/23 03:29 Plt Count 125 10^3/cmm (157-399) L 07/02/23 03:29 MPV 11.5 fL (7.4-10.4) H 07/02/23 03:29 Neut % (Auto) 59.6 % 07/02/23 03:29 Lymph % (Auto) 24.4 % 07/02/23 03:29 [place] % (Auto) 10.9 % 07/02/23 03:29 Eos % (Auto) 4.0 % 07/02/23 03:29 Baso % (Auto) 0.7 % 07/02/23 03: Neut # (Auto) 4.43 10^3/uL (1.8-7.7) 07/02/23 03: Lymph # (Auto) 1.8 10^3/uL (0.8-4.8) 07/02/23 03:29 [place] # (Auto) 0.8 10^3/uL (0.2-0.9) 07/02/23 03: Eos # (Auto) 0.3 10^3/uL (0.0-0.8) 07/02/23 03: Baso # (Auto) 0.1 10^3/uL (0.0-0.1) 07/02/23 03: Nucleated RBC % (auto) 0 % 07/02/23 03: Nucleated RBCs # 0.0 /100WBC 07/02/23 03: D-Dimer 0.75 ug/mLFEU (0-0.59) H 06/24/23 11:00 Sodium 140 mmol/L (136-145) 07/02/23 03:29 Potassium 4.0 mmol/L (3.5-5.1) 07/02/23 03: Chloride 92 mmol/L (98-107) L 07/02/23 03: Carbon Dioxide 44 mmol/L (22-29) H* 07/02/23 03:29 Anion Gap 8.0 (5-19) 07/02/23 03:29 BUN 22 mg/dL (8-23) 07/02/23 03:29 Creatinine 2.3 mg/dL (0.7-1.2) H 07/02/23 03:29 GFR Calculation Not Reportable 07/02/23 03:29 Glucose 104 mg/dL (65-115) 07/02/23 03:29 POC Glucose 126 mg/dL (70-110) H 06/27/23 06:09 Estimat Average Glucose 103 06/30/23 02:53 Hemoglobin A1c 5.2 % (4.0-6.0) 06/30/23 02:53 Calculated Osmolality 294 mOsm/kg (285-295) 07/02/23 03:29 Calcium 9.0 mg/dL (8.5-10.5) 07/02/23 03:29 Magnesium 2.5 mg/dL (1.7-2.3) H 07/02/23 03:29 Iron 89 ug/dL (59-158) 06/29/23 03:52 TIBC 186 mcg/dl 06/29/23 03:52 % Saturation 47.8 % (20-50) 06/29/23 03:52 Unsat Iron Binding 97 ug/dL (112-347) L 06/29/23 03:52 Total Bilirubin 0.4 mg/dL (0.15-1.2) 07/02/23 03:29 AST 28 U/L (0-40) 07/02/23 03:29 ALT 17 U/L (0-41) 07/02/23 03:29 Alkaline Phosphatase 71 U/L (40-130) 07/02/23 03:29 Troponin T 5th Gen ng/L 81 ng/L (0-15) H 06/26/23 23:41 Troponin T Baseline 81 ng/L (0-15) H 06/24/23 11:00 Troponin T 120 Minute 78.29 ng/L (0-15) H 06/24/23 13:07 Delta Troponin T -2.71 ABS# (0-10) L 06/24/23 13:07 Troponin T Hi Sens 6Hr 84.23 ng/L (0-15) H 06/24/23 17:25 Troponin T Hi Sens 6Hr Delta 3.23 ng/L (0-12) 06/24/23 17:25 NT-Pro-B Natriuret Pep 739 pg/mL (0-450) H 06/29/23 03:52 Total Protein 6.2 g/dL (6.6-8.7) L 07/02/23 03:29 Albumin 3.5 g/dL (3.5-5.2) 07/02/23 03:29 Globulin 2.7 g/dL (1.3-4.6) 07/02/23 03:29 Triglycerides 130 mg/dL (0-150) 06/30/23 02:53 Cholesterol 187 mg/dL (0-200) 06/30/23 02:53 LDL Cholesterol, Calc 96 mg/dL (50-129) 06/30/23 02:53 Total VLDL Cholesterol 26 mg/dL (0-30) 06/30/23 02:53 HDL Cholesterol 65 mg/dL (60-100) 06/30/23 02:53 Cholesterol/HDL Ratio 2.88 mg/dL (1.0-5.00) 06/30/23 02:53 Vitamin B12 285 pg/mL (232-1245) 06/29/23 03:52 Folate 16.9 ng/mL (4.5-32.2) 06/30/23 02:53 TSH 2.00 uIU/mL (0.27-4.20) 06/24/23 11:00 Urine Color Yellow (Yellow) 06/25/23 16:25 Urine Appearance Clear (CLEAR) 06/25/23 16:25 Urine pH 5 (5-7) 06/25/23 16:25 Ur Specific [place] 1.020 (1.005-1.030) 06/25/23 16:25 Urine Protein Neg (Negative) 06/25/23 16:25 Urine Glucose (UA) Norm (Normal) 06/25/23 16:25 Urine Ketones Negative (Negative) 06/25/23 16:25 Urine Blood Neg (Negative) 06/25/23 16:25 Urine Nitrate Negative (Negative) 06/25/23 16:25 Urine Bilirubin Neg (Negative) 06/25/23 16:25 Urine Urobilinogen Norm mg/dL (Negative) 06/25/23 16:25 Ur Leukocyte Esterase Negative (Negative) 06/25/23 16:25 Ur Random Urea Nitrogn 123 mg/dL 06/29/23 21:50 Urine Creatinine 40 mg/dL (39-259) 06/29/23 21:50 Adenovirus (PCR) Not detected (NOT DETECT) 06/26/23 23:15 C. pneumoniae DNA (PCR) Not detected (NOT DETECT) 06/26/23 23:15 Coronavirus 229E (PCR) Not detected (NOT DETECT) 06/26/23 23:15 Human Metapneumovir PCR Not detected (NOT DETECT) 06/26/23 23:15 Influenza A (H1) PCR Not detected (NOT DETECT) 06/26/23 23:15 Influ A (H1/09) PCR Not detected (NOT DETECT) 06/26/23 23:15 Influenza A (H3) PCR Not detected (NOT DETECT) 06/26/23 23:15 Influenza Type A (PCR) Not detected (NOT DETECT) 06/26/23 23:15 Influenza Type B (PCR) Not detected (NOT DETECT) 06/26/23 23:15 M. pneumoniae (PCR) Not detected (NOT DETECT) 06/26/23 23:15 Parainfluenza 1 (PCR) Not detected (NOT DETECT) 06/26/23 23:15 Parainfluenza 2 (PCR) Not detected (NOT DETECT) 06/26/23 23:15 Parainfluenza 3 (PCR) Not detected (NOT DETECT) 06/26/23 23:15 Parainfluenza 4 (PCR) Not detected (NOT DETECT) 06/26/23 23:15 RSV Type A (PCR) Not detected (NOT DETECT) 06/26/23 23:15 RSV Type B (PCR) Not detected (NOT DETECT) 06/26/23 23:15 Entero/Rhino (PCR) Not detected (NOT DETECT) 06/26/23 23:15 SARS-CoV-2 (PCR) Not detected (NOT DETECT) 06/26/23 23:15 A&P Assessment and plan (1) Atrial fibrillation: The ventricular rate is under control. May cut back on the dose of the metoprolol to 12.5 mg p.o. twice daily, because of the low blood pressure. Qualifiers: Atrial fibrillation type: unspecified Qualified Code(s): I48.91 - Unspecified atrial fibrillation (2) Acute on chronic diastolic heart failure: The heart failure seems to be currently compensated. (3) Dyslipidemia: Continue on the current management. (4) OLLIE (acute kidney injury): The BUN/creatinine is improving (5) Hypotension determined by examination: The exact etiology is not clear. The LV ejection fraction was found to be within normal limits. Patient may be given a trial of IV fluid Plan Discussed with Dr. Church. The exact etiology of the hypotension is not clear. Cutting back on the dose of the metoprolol 12.5 mg p.o. twice daily and giving a fluid challenge will be appropriate. Attestations 2 Medical Necessity Statement*: Deferred to the primary Coding Level of Care Code 99631 Diagnoses Atrial fibrillation, unspecified type I48.91 Atrial fibrillation type: unspecified Acute on chronic diastolic heart failure I50.33 Dyslipidemia E78.5 OLLIE (acute kidney injury) N17.9 Hypotension determined by examination I95.9
--- NOTE | 2023-07-02 18:00 | PC.NURSE ---
Called Dr. Gomez in regards to metoprolol and BP's as Dr. Zimmerman had me hold the medication this morning and we started midodrine. Dr. Gomez instructed to hold the med for this evening as well at this time and may try again in the morning.
[2023-07-02] MEDS: ondansetron 2 mg/ML SDV 2 mL 4 MG IVP (22:23)
[2023-07-02] MEDS: tamsulosin 0.4 mg Capsule 0.400000000000000022 MG PO (22:23)
[2023-07-02] MEDS: zolpidem 5 mg Tablet PO (22:23)
[2023-07-03] VITALS (13 sets, daily range): BP systolic 110–143; BP diastolic 70–101; PULSE 62–94; RESP 16–28; TEMP 36.2–36.9; O2SAT 96–100
[2023-07-03 05:14] LABS: Alanine Aminotransferase 17 U/L (0-41); Albumin Level 3.6 g/dL (3.5-5.2); Alkaline Phosphatase 72 U/L (40-130); Blood Urea Nitrogen 22 mg/dL (8-23); Calcium 9.2 mg/dL (8.5-10.5); Carbon Dioxide 37 mmol/L (22-29); Chloride 93 mmol/L (98-107); Creatinine Clr Calc Pharmacy 46.7545; Globulin 3.1 g/dL (1.3-4.6); Glucose 104 mg/dL (65-115); Osmolality Calculated 288 mOsm/kg (285-295); Sodium 137 mmol/L (136-145); Total Bilirubin 0.5 mg/dL (0.15-1.2); Total Protein 6.7 g/dL (6.6-8.7)
[2023-07-03 05:15] LABS: Anion Gap 10.5 (5-19); Aspartate Amino Transferase 33 U/L (0-40); Potassium 3.5 mmol/L (3.5-5.1)
[2023-07-03] MEDS: pantoprazole DR 40 mg Tablet PO (05:36)
[2023-07-03] MEDS: ondansetron 2 mg/ML SDV 2 mL 4 MG IVP ×3 (05:36→20:33)
[2023-07-03] MEDS: duloxetine 30 mg Capsule PO (05:37)
[2023-07-03] MEDS: heparin 5,000 unit/mL INJ 1 mL 5000 UNIT SUBCUT ×2 (05:37→17:36)
[2023-07-03] MEDS: aspirin 81 mg EC Tablet PO (05:37)
[2023-07-03] MEDS: albuterol 2.5 mg/3 mL Neb INHALATION (09:08)
[2023-07-03] MEDS: midodrine 5 mg TABLET PO ×2 (09:34→16:16)
[2023-07-03] MEDS: pyridostigmine 60 mg Tablet PO ×2 (09:34→17:36)
[2023-07-03] MEDS: buPROPion XL (24 HR) 300 mg Tablet PO (09:34)
[2023-07-03] MEDS: propafenone 150 mg Tablet PO ×3 (09:34→20:27)
[2023-07-03] MEDS: metoprolol tartrate 50 mg Tablet 25 MG PO ×2 (09:34→17:36)
--- NOTE | 2023-07-03 09:55 | P.DS_ITS ---
Discharge Providers Date of Admission: 06/25/23 16:27 Date of Discharge: July 03, 2023 Attending Provider at Admission: Hossein Ledezma Attending Provider at Discharge: Jakob Gomez MD Primary Care Provider: Igor Aguilera Diagnoses at Discharge Discharge Diagnosis (1) Atrial fibrillation: Status: Acute Qualifiers: Atrial fibrillation type: unspecified Qualified Code(s): I48.91 - Unspecified atrial fibrillation Permanent problem details: Not anticoagulated due to ICH (2) Acute on chronic diastolic heart failure: Status: Acute (3) Dyslipidemia: Status: Acute (4) OLLIE (acute kidney injury): Status: Acute (5) Hypotension determined by examination: Status: Acute Reason for Visit Reason for Visit: Chest Pain, SOB Physical Exam Narrative: Accompanied by family Const: COMMON NORMALS: patient oriented x3 and alert GENERAL APPEARANCE: cooperative NUTRITIONAL APPEARANCE: obese ORIENTATION/CONSCIOUSNESS: Yes awake HENMT: COMMON NORMALS: oropharynx normal Neck/C-Spine: COMMON NORMALS: no JVD Resp: COMMON NORMALS: normal respiratory effort and clear to auscultation bilaterally AUSCULTATION: clear to auscultation bilaterally Cardio: COMMON NORMALS: no JVD, regular rhythm, S1 normal heart sound present, S2 normal heart sound present and No murmurs present (Cardio) RATE: tachycardic RHYTHM: regular rhythm and abnormal rhythm irregularly irregular HEART SOUNDS: S1 normal heart sound present and S2 normal heart sound present GI: COMMON NORMALS: Normal to inspection, nondistended, normoactive bowel sounds present, Soft to palpation and non-tender PALPATION: Yes Soft to palpation Extremity: COMMON NORMALS: no joint enlargement GENERAL: Yes edema (2+) Neuro: COMMON NORMALS: patient oriented x3 and moves all extremities SENSORIUM/ORIENTATION: Yes alert Skin: COMMON NORMALS: no rashes or lesions noted GENERAL SKIN EXAM: no rashes or lesions noted Discharge Data Studies Completed and Pending Completed Studies During Hospitalization Category Date Time Status XR chest 1V portable [id number] Routine Exams 06/29/23 09:23 Completed XR chest 1V portable [id number] Stat Exams 06/24/23 10:47 [place] [id number] Routine Ultrasound 06/24/23 17:56 Completed CV. echo wo/w contrast [id number] Routine Ultrasound 06/24/23 17:56 Completed Radiology Impressions Venous Duplex 06/24/23 17:56 IMPRESSION: No evidence of deep vein thrombosis. Laboratory Results WBC 7.43 10^3/uL (3.29-11.43) 07/02/23 03: RBC 3.58 10^6/uL (3.85-5.65) L 07/02/23 03:29 Hgb 12.00 g/dL (11.27-16.99) 07/02/23 03:29 Hct 38.0 % (37-53) 07/02/23 03: MCV 106.1 fl (82-101) H 07/02/23 03:29 MCH 33.5 pg (27-33) H 07/02/23 03: MCHC 31.6 g/dL (30-55) 07/02/23 03: RDW 12.6 % (12.1-15.1) 07/02/23 03: Plt Count 125 10^3/cmm (157-399) L 07/02/23 03: MPV 11.5 fL (7.4-10.4) H 07/02/23 03: Neut % (Auto) 59.6 % 07/02/23 03: Lymph % (Auto) 24.4 % 07/02/23 03: [place] % (Auto) 10.9 % 07/02/23 03: Eos % (Auto) 4.0 % 07/02/23 03: Baso % (Auto) 0.7 % 07/02/23 03: Neut # (Auto) 4.43 10^3/uL (1.8-7.7) 07/02/23 03: Lymph # (Auto) 1.8 10^3/uL (0.8-4.8) 07/02/23 03:29 [place] # (Auto) 0.8 10^3/uL (0.2-0.9) 07/02/23 03: Eos # (Auto) 0.3 10^3/uL (0.0-0.8) 07/02/23 03: Baso # (Auto) 0.1 10^3/uL (0.0-0.1) 07/02/23 03: Nucleated RBC % (auto) 0 % 07/02/23 03: Nucleated RBCs # 0.0 /100WBC 07/02/23 03:29 D-Dimer 0.75 ug/mLFEU (0-0.59) H 06/24/23 11:00 Sodium 137 mmol/L (136-145) 07/03/23 04:31 Potassium 3.5 mmol/L (3.5-5.1) 07/03/23 04:31 Chloride 93 mmol/L (98-107) L 07/03/23 04:31 Carbon Dioxide 37 mmol/L (22-29) H 07/03/23 04:31 Anion Gap 10.5 (5-19) 07/03/23 04:31 BUN 22 mg/dL (8-23) 07/03/23 04:31 Creatinine 1.8 mg/dL (0.7-1.2) H 07/03/23 04:31 GFR Calculation Not Reportable 07/03/23 04:31 Glucose 104 mg/dL (65-115) 07/03/23 04:31 POC Glucose 126 mg/dL (70-110) H 06/27/23 06:09 Estimat Average Glucose 103 06/30/23 02:53 Hemoglobin A1c 5.2 % (4.0-6.0) 06/30/23 02:53 Calculated Osmolality 288 mOsm/kg (285-295) 07/03/23 04:31 Calcium 9.2 mg/dL (8.5-10.5) 07/03/23 04:31 Magnesium 2.5 mg/dL (1.7-2.3) H 07/02/23 03:29 Iron 89 ug/dL (59-158) 06/29/23 03:52 TIBC 186 mcg/dl 06/29/23 03:52 % Saturation 47.8 % (20-50) 06/29/23 03:52 Unsat Iron Binding 97 ug/dL (112-347) L 06/29/23 03:52 Total Bilirubin 0.5 mg/dL (0.15-1.2) 07/03/23 04:31 AST 33 U/L (0-40) 07/03/23 04:31 ALT 17 U/L (0-41) 07/03/23 04:31 Alkaline Phosphatase 72 U/L (40-130) 07/03/23 04:31 Troponin T 5th Gen ng/L 81 ng/L (0-15) H 06/26/23 23:41 Troponin T Baseline 81 ng/L (0-15) H 06/24/23 11:00 Troponin T 120 Minute 78.29 ng/L (0-15) H 06/24/23 13:07 Delta Troponin T -2.71 ABS# (0-10) L 06/24/23 13:07 Troponin T Hi Sens 6Hr 84.23 ng/L (0-15) H 06/24/23 17:25 Troponin T Hi Sens 6Hr Delta 3.23 ng/L (0-12) 06/24/23 17:25 NT-Pro-B Natriuret Pep 739 pg/mL (0-450) H 06/29/23 03:52 Total Protein 6.7 g/dL (6.6-8.7) 07/03/23 04:31 Albumin 3.6 g/dL (3.5-5.2) 07/03/23 04:31 Globulin 3.1 g/dL (1.3-4.6) 07/03/23 04:31 Triglycerides 130 mg/dL (0-150) 06/30/23 02:53 Cholesterol 187 mg/dL (0-200) 06/30/23 02:53 LDL Cholesterol, Calc 96 mg/dL (50-129) 06/30/23 02:53 Total VLDL Cholesterol 26 mg/dL (0-30) 06/30/23 02:53 HDL Cholesterol 65 mg/dL (60-100) 06/30/23 02:53 Cholesterol/HDL Ratio 2.88 mg/dL (1.0-5.00) 06/30/23 02:53 Vitamin B12 285 pg/mL (232-1245) 06/29/23 03:52 Folate 16.9 ng/mL (4.5-32.2) 06/30/23 02:53 TSH 2.00 uIU/mL (0.27-4.20) 06/24/23 11:00 Urine Color Yellow (Yellow) 06/25/23 16:25 Urine Appearance Clear (CLEAR) 06/25/23 16:25 Urine pH 5 (5-7) 06/25/23 16:25 Ur Specific [place] 1.020 (1.005-1.030) 06/25/23 16:25 Urine Protein Neg (Negative) 06/25/23 16:25 Urine Glucose (UA) Norm (Normal) 06/25/23 16:25 Urine Ketones Negative (Negative) 06/25/23 16:25 Urine Blood Neg (Negative) 06/25/23 16:25 Urine Nitrate Negative (Negative) 06/25/23 16:25 Urine Bilirubin Neg (Negative) 06/25/23 16:25 Urine Urobilinogen Norm mg/dL (Negative) 06/25/23 16:25 Ur Leukocyte Esterase Negative (Negative) 06/25/23 16:25 Ur Random Urea Nitrogn 123 mg/dL 06/29/23 21:50 Urine Creatinine 40 mg/dL (39-259) 06/29/23 21:50 Adenovirus (PCR) Not detected (NOT DETECT) 06/26/23 23:15 C. pneumoniae DNA (PCR) Not detected (NOT DETECT) 06/26/23 23:15 Coronavirus 229E (PCR) Not detected (NOT DETECT) 06/26/23 23:15 Human Metapneumovir PCR Not detected (NOT DETECT) 06/26/23 23:15 Influenza A (H1) PCR Not detected (NOT DETECT) 06/26/23 23:15 Influ A (H1/09) PCR Not detected (NOT DETECT) 06/26/23 23:15 Influenza A (H3) PCR Not detected (NOT DETECT) 06/26/23 23:15 Influenza Type A (PCR) Not detected (NOT DETECT) 06/26/23 23:15 Influenza Type B (PCR) Not detected (NOT DETECT) 06/26/23 23:15 M. pneumoniae (PCR) Not detected (NOT DETECT) 06/26/23 23:15 Parainfluenza 1 (PCR) Not detected (NOT DETECT) 06/26/23 23:15 Parainfluenza 2 (PCR) Not detected (NOT DETECT) 06/26/23 23:15 Parainfluenza 3 (PCR) Not detected (NOT DETECT) 06/26/23 23:15 Parainfluenza 4 (PCR) Not detected (NOT DETECT) 06/26/23 23:15 RSV Type A (PCR) Not detected (NOT DETECT) 06/26/23 23:15 RSV Type B (PCR) Not detected (NOT DETECT) 06/26/23 23:15 Entero/Rhino (PCR) Not detected (NOT DETECT) 06/26/23 23:15 SARS-CoV-2 (PCR) Not detected (NOT DETECT) 06/26/23 23:15 Vitals Last Vital Signs Temp 97.1 F L 07/03/23 07:50 Pulse 77 07/03/23 09:15 Resp 16 07/03/23 09:09 BP 116/78 07/03/23 07:50 Pulse Ox 98 07/03/23 09:09 O2 Del Method Nasal Cannula 07/03/23 09:09 O2 Flow Rate 2 07/03/23 09:09 Discharge Plan Discharge Patient Disposition: Home Health Service Condition: Stable Prescriptions: New propafenone 150 mg Tablet 150 mg PO TID Qty: 90 0RF midodrine 5 mg Tablet 5 mg PO BID Qty: 60 0RF metoprolol tartrate 50 mg Tablet 25 mg PO BID Qty: 30 0RF pyridostigmine bromide 60 mg Tablet 60 mg PO BID Qty: 60 0RF Continued albuterol sulfate [ProAir HFA] 90 mcg/actuation HFA aerosol inhaler 2 puff INHALATION Q6H PRN (Reason: Shortness Of Breath Or Wheezing) tamsulosin 0.4 mg capsule 0.4 mg PO BEDTIME budesonide-formoterol 160-4.5 mcg/actuation HFA aerosol inhaler 2 puff inhalation BID nitroglycerin [Nitrostat] 0.4 mg tablet, sublingual 0.4 mg sublingual Q5M PRN (Reason: chest pain) Qty: 25 3RF Rx Instructions: do not exceed 3 doses per episode duloxetine 30 mg capsule,delayed release(DR/EC) 30 mg PO QAM oxycodone 15 mg Tablet 15 mg PO Q6H PRN (Reason: Pain) Hold Instructions: Resume on 11/26/21. ketoconazole 2 % shampoo See Rx Instructions .ROUTE .COMPLEX Rx Instructions: APPLY 10 ML TO WET SCALP, LATHER, LEAVE ON 3 MINUTES, AND RINSE; APPLY TWICE WEEKLY FOR 4 WEEKS. rizatriptan 10 mg tablet,disintegrating See Rx Instructions .ROUTE .COMPLEX Rx Instructions: PLACE 1 TABLET (10 MG) INSIDE CHEEK EVERY 2 HOURS NEEDED FOR MIGRAINE. MAY REPEAT IN 2 HOURS; MAX DOSE 20MG IN 24 HOURS bupropion HCl 300 mg tablet extended release 24 hr 300 mg PO QAM Myrbetriq 25 mg tablet extended release 24 hr 25 mg PO QAM albuterol sulfate 2.5 mg /3 mL (0.083 %) solution for nebulization 2.5 mg inhalation Q4H PRN (Reason: Shortness Of Breath) ipratropium-albuterol 0.5 mg-3 mg(2.5 mg base)/3 mL Solution For Nebulization 3 ml INHALATION Q6H PRN (Reason: Shortness Of Breath) Aspir-81 81 mg Tablet,Delayed Release (Dr/Ec) 81 mg PO QAM Tylenol Extended Release 650 mg Tablet Extended Release 650 mg PO Q6H PRN (Reason: Pain) Zofran ODT 4 mg Tablet,Disintegrating 4 mg PO Q8H PRN (Reason: Nausea And Vomiting) zolpidem [Ambien CR] 6.25 mg Tablet,Ext Release Multiphase 6.25 mg PO BEDTIME magnesium oxide 400 mg magnesium Tablet 400 mg PO QAM omeprazole 20 mg capsule,delayed release(DR/EC) 20 mg PO QAM cholecalciferol (vitamin D3) [Vitamin D3] 25 mcg (1,000 unit) Tablet 25 mcg PO DAILY PreserVision AREDS-2 250-90-40-1 mg Capsule 1 tab PO BID Changed potassium chloride 10 mEq capsule, extended release 10 meq PO DAILY Qty: 10 0RF furosemide 20 mg tablet 40 mg PO BID 30 Days Qty: 120 0RF Discontinued celecoxib [Celebrex] 200 mg capsule 200 mg PO BID lisinopril 40 mg tablet 40 mg PO QAM hydralazine 100 mg tablet 100 mg PO TID Qty: 270 2RF metoprolol tartrate 75 mg tablet 75 mg PO BID Qty: 90 3RF amlodipine 5 mg tablet 5 mg PO QAM [id number] 50-325-40 mg Tablet 1 tab PO Q6H PRN (Reason: Headache) Discharge Orders: Discharge Order (Routine); Ordered 07/03/23 Ordered By: Jakob Gomez Other Ambulatory Orders: DME: Commode (Order) Location: None Selected Ordered By: Jakob Gomez DME: Oxygen (Order) Location: None Selected Ordered By: Hossein Ledezma Referrals: [facility] [Outside] [facility] [Outside] Igor Aguilera [Primary Care Provider] - 07/02/23 2:20 pm () Nahomi Quintana FNP [Nurse Practitioner] - 7-10 days Discharge Diet: Cardiac Patient Instructions: Heart Failure (DC), CHF Stoplight, Opioid Safety Activity Restrictions/Additional Instructions: Blood pressure twice daily and maintain a blood pressure diary and follow-up with a primary care provider within next 1 week. Goal blood pressure should be between 100/80 mmHg to 140/90 mmHg. Midodrine is a medication which she will be taking to keep your blood pressure high. For now you can take it twice daily. You can take once daily as needed as an added medication if the blood pressure drops below 100 systolics. Take Lasix 40 mg twice daily. Restrict fluid intake to less than 1500 cc, salt intake to less than 2 g daily. Advised to check his weight daily at home. Is advised that weight today would be the dry weight and if body weight increases by around 5 pounds, patient is to take an extra dose of Lasix daily till body weight comes down to weight today. If not able to come down to dry body weight in 1 week, then is to call cardiology office for further recommendations. Patient was counseled in detail to take medications regularly as prescribed. Coding Level of Care Code Acute Code for [facility] Diagnoses Atrial fibrillation, unspecified type I48.91 Atrial fibrillation type: unspecified Acute on chronic diastolic heart failure I50.33 Dyslipidemia E78.5 OLLIE (acute kidney injury) N17.9 Hypotension determined by examination I95.9
[2023-07-03] MEDS: FUROsemide 10 mg/mL SDV 4mL 40 MG IVP (10:53)
--- NOTE | 2023-07-03 11:53 | CTR_ITS ---
PROCEDURE INFORMATION: Exam: CT Abdomen And Pelvis Without Contrast Exam date and time: 07/03/2023 3:42 PM Age: 77 years old Clinical indication: N/v TECHNIQUE: Imaging protocol: Computed tomography of the abdomen and pelvis without contrast. COMPARISON: CR XR hip LT 2-3V wo/w pel* [id number] 09/17/2021 8:06 AM RADIATION DOSE METRICS: Total DLP (mGy-cm): 1298 FINDINGS: Liver: No acute findings Gallbladder and bile ducts: Probable cholelithiasis and/or gallbladder sludge. No acute inflammation. Pancreas: No ductal dilation. Spleen: No splenomegaly. Adrenal glands: No mass. Kidneys and ureters: Punctate bilateral renal calcifications either vascular or nonobstructing stones. No hydronephrosis. Stomach and bowel: No obstruction. Colonic diverticulosis without evidence of acute diverticulitis. Appendix: No evidence of appendicitis. Intraperitoneal space: No free air. No significant fluid collection. Vasculature: No abdominal aortic aneurysm. Lymph nodes: No enlarged lymph nodes. Urinary bladder: Incompletely distended. Reproductive: Prostatomegaly. Bones/joints: No acute findings. Soft tissues: No acute findings. CT/CT abdomen pelvis wo con [id number] IMPRESSION: No acute abdominal findings.
[2023-07-03] MEDS: pantoprazole 40 mg SDV IVP (12:58)
--- NOTE | 2023-07-03 13:22 | PC.SOCIAL ---
IMM updated Updated pt on IMM. No questions voiced. Provided pt a copy. Initialed, dated, & timed copy in chart.
--- NOTE | 2023-07-03 16:10 | P.PN_ITS ---
Subjective 2 Subjective: Patient was to be discharged today but was canceled as he developed nausea and vomiting. Otherwise patient is doing better. Heart rate has been well- controlled. Blood pressure is better. Patient complaining of abdominal distention and nausea. Last bowel movements yesterday. Denies any chest pain. Daughter at bedside. Vitals/I&O/Wt Last Vital Signs Temp 98.4 F 07/03/23 11:53 Pulse 62 07/03/23 14:00 Resp 25 H 07/03/23 11:53 BP 128/87 07/03/23 11:53 Pulse Ox 100 07/03/23 11:53 O2 Del Method Nasal Cannula 07/03/23 11:53 O2 Flow Rate 2 07/03/23 09:09 07/03/23 07/03/23 07/03/23 06:59 14:59 22:59 Intake Total 686.25 / 1286.25 222 / 222 Output Total 800 / 800 Balance 686.25 / 1086.25 -578 / -578 Weight last 48 hrs Weight 134.83 kg Physical Exam 2 Narrative: General: No acute distress, AO x3, morbidly obese, in mild distress because of nausea HEENT: PERRLA, pupils bilaterally equal and reactive Chest: Bilateral bronchial breath sounds with occasional rhonchi CVS: S1-S2 irregularly irregular, no murmurs, no tachycardia, no gallops, no rubs Abdomen: Soft, nontender, no organomegaly, bowel sounds present Neuro: No focal deficits, no facial deformity, AO x3, power 5/5 in all limbs Data 07/02/23 03:29 07/03/23 04:31 A&P Assessment and plan (1) Atrial fibrillation: Qualifiers: Atrial fibrillation type: unspecified Qualified Code(s): I48.91 - Unspecified atrial fibrillation (2) Acute on chronic diastolic heart failure: (3) Dyslipidemia: (4) OLLIE (acute kidney injury): Recent baseline for last 1 year has been around 1.3-1.6. Creatinine has been steadily trending up and has been stable around 2.3 for last 24 hours. Unable to measure urine output given patient being incontinent. OLLIE on CKD most likely in setting of borderline blood pressures, A-fib with RVR, NSAID use. CRS less likely for now. Gentle IV hydration as above. Monitor BMP daily. (5) Hypotension determined by examination: Plan Congestive heart failure: Back to baseline. Seems to be euvolemic. Patient has not received any diuretics for last 48 hours. Stop IV fluids. 40 mg IV Lasix one-time. Will restart on 40 mg oral twice daily Lasix from evening. Strict input charting, daily weights. Atrial fibrillation: Currently rate controlled. Continue with propafenone 150 mg 3 times a day. Will restart metoprolol at a lower dose of 12.5 mg twice daily. Not on anticoagulation given history of subdural hematoma recently. Orthostatic hypotension: Most likely in setting of subdural hematoma along with aggressive diuresis and CKD. Goal blood pressure less than 140/90 MAG with mean over 65. Target blood pressure between 110/80 mmHg to 140/90 mmHg. Continue with midodrine 5 mg twice daily along with pyridostigmine 60 mg twice daily. Blood pressures elevated will change midodrine to as needed. OLLIE on CKD: Baseline creatinine seems to be around 1.3-1.6. Currently up to 1.8. Trending down today from 2.3. Most likely as blood pressures are better. Monitor daily for now. Monitor electrolytes. Nausea and vomiting: Unknown etiology. LFT stable. Could be in setting of normal blood pressures now versus congestive heart failure versus GERD. Could be in setting of chronic migraines. IV Protonix, Zofran as needed. CT abdomen pelvis. Switch to clear liquid diet Migraine headache: Gets recurrent migraines. Will give dose of Tylenol IV. Reviewed respiratory viral panel, negative. 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 HTN: Holding off on antihypertensives. Goal blood pressure less than 140/90 MAG with mean over 65. Holding off on home dose of hydralazine and metoprolol for now. Physical deconditioning: As per patient's daughter he has been having recurrent episodes of unsteadiness on feet with occasional episode of almost falls. Symptoms of started recently within the last few weeks. Will get physical therapy. Patient might benefit with home meds on discharge. Discharge plan: Plan to discharge in next 24 hours if patient able to tolerate clear liquid diet with resolution of nausea and vomiting, renal functions remained stable and blood pressure stable as well CODE STATUS: Discussed again in detail with patient and family by bedside. Daughter with the DPOA. Limited resuscitation. Cardiac diet Protonix for PUD prophylaxis Heparin for DVT prophylaxis. Attestations 2 Medical Necessity Statement*: Requested hospitalization for management of nausea and vomiting in a patient was admitted for congestive heart failure, A-fib with RVR developed orthostatic hypotension and OLLIE on CKD Diagnoses Atrial fibrillation, unspecified type I48.91 Atrial fibrillation type: unspecified Acute on chronic diastolic heart failure I50.33 Dyslipidemia E78.5 OLLIE (acute kidney injury) N17.9 Hypotension determined by examination I95.9
--- NOTE | 2023-07-03 19:27 | PC.NURSE ---
Family daughter asked nurse to check patients blood glucose because he is a borderline diabetic and is feeling cold and clammy. Nurse checked patient blood glucose, was found to be 112 at this time. The patient did not have any complaints at this time. Made patient aware of transfer to [facility] tonight. Patient agreeable to transfer.
[2023-07-03 19:29] LABS: Glucose Point of Care 112 mg/dL (70-110)
--- NOTE | 2023-07-03 20:24 | PC.NURSE ---
Spoke with regarding patients HR getachewn 57-62 tonight asking if dose of rythmol should be held tonight. said ok to give tonights dose as long as HR >50.
[2023-07-03] MEDS: tamsulosin 0.4 mg Capsule 0.400000000000000022 MG PO (20:27)
--- NOTE | 2023-07-03 22:05 | PC.NURSE ---
Called and gave report to nurse Alejandrina. Patient transferred to [facility] 277-1 with all belongings including personal o2 tank and patient chart. Patients telemetry transferred t box 11.
[2023-07-04] VITALS: BP 110/71; PULSE 65; RESP 19; TEMP 36.8; O2SAT 97
[2023-07-04 04:00] VITALS: BP 123/81; PULSE 69; RESP 21; TEMP 36.6; O2SAT 96
[2023-07-04] MEDS: duloxetine 30 mg Capsule PO (05:17)
[2023-07-04] MEDS: aspirin 81 mg EC Tablet PO (05:17)
[2023-07-04] MEDS: heparin 5,000 unit/mL INJ 1 mL 5000 UNIT SUBCUT (05:18)
[2023-07-04 05:38] VITALS: PULSE 69
[2023-07-04 05:57] LABS: Basophils % 0.4 %; Eosinophils # 0.1 10^3/uL (0.0-0.8); Eosinophils % 0.9 %; Lymphocytes # 1.5 10^3/uL (0.8-4.8); Lymphocytes % 18.7 %; Mean Corpuscular HGB Conc 32.2 g/dL (30-55); Mean Corpuscular Hemoglobin 32.9 pg (27-33); Mean Corpuscular Volume 102.2 fl (82-101); Mean Platelet Volume 11.8 fL (7.4-10.4); Monocytes # 0.7 10^3/uL (0.2-0.9); Monocytes % 9.3 %; Neutrophils # 5.43 10^3/uL (1.8-7.7); Neutrophils % 70.1 %; Nucleated Red Blood Cells % 0 %; Platelet Count 137 10^3/cmm (157-399); Red Blood Count 4.01 10^6/uL (3.85-5.65); Red Cell Distribution Width 12.5 % (12.1-15.1); White Blood Count 7.75 10^3/uL (3.29-11.43)
[2023-07-04 06:13] LABS: Alanine Aminotransferase 16 U/L (0-41); Albumin Level 3.8 g/dL (3.5-5.2); Alkaline Phosphatase 73 U/L (40-130); Blood Urea Nitrogen 21 mg/dL (8-23); Calcium 9.2 mg/dL (8.5-10.5); Chloride 92 mmol/L (98-107); Creatinine Clr Calc Pharmacy 51.9007; Glucose 113 mg/dL (65-115); Osmolality Calculated 292 mOsm/kg (285-295); Sodium 139 mmol/L (136-145); Total Bilirubin 0.5 mg/dL (0.15-1.2); Total Protein 6.8 g/dL (6.6-8.7)
[2023-07-04 06:14] LABS: Anion Gap 9.6 (5-19); Aspartate Amino Transferase 34 U/L (0-40); Potassium 3.6 mmol/L (3.5-5.1)
[2023-07-04 06:15] LABS: Carbon Dioxide 41 mmol/L (22-29)
[2023-07-04 07:48] VITALS: BP 113/65; PULSE 81; RESP 16; TEMP 36.8; O2SAT 98
[2023-07-04] MEDS: pyridostigmine 60 mg Tablet PO (09:12)
[2023-07-04] MEDS: metoprolol tartrate 50 mg Tablet 25 MG PO (09:12)
[2023-07-04] MEDS: propafenone 150 mg Tablet PO ×2 (09:12→14:16)
[2023-07-04] MEDS: buPROPion XL (24 HR) 300 mg Tablet PO (09:12)
[2023-07-04] MEDS: pantoprazole 40 mg SDV IVP (09:13)
[2023-07-04 09:24] VITALS: RESP 17
[2023-07-04] MEDS: oxyCODONE 5 mg IR Tab/Cap 15 MG PO (09:24)
[2023-07-04] MEDS: ondansetron 2 mg/ML SDV 2 mL 4 MG IVP (10:51)
[2023-07-04 11:31] VITALS: PULSE 68; RESP 16; TEMP 36.7; O2SAT 93
[2023-07-04] MEDS: scopolamine 1.5 Patch 1 PATCH TRANSDERMA (12:34)
--- NOTE | 2023-07-04 15:00 | ECG_ITS ---
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 Measurements Intervals [place] Rate: 59 P: -53 TN: 232 QRS: -18 QRSD: 150 T: 0 QT: 264 QTc: 261 Interpretive Statements SINUS BRADYCARDIA WITH FIRST DEGREE AV BLOCK INTRAVENTRICULAR CONDUCTION DELAY [130+ ms QRS DURATION] POSSIBLE LATERAL MYOCARDIAL INFARCTION , PROBABLY OLD [30 ms Q WAVE IN I/aVL/V5/V6] Compared to ECG 07/01/2023 14:06:32 First degree AV block now present Myocardial infarct finding now present Atrial fibrillation no longer present Electronically Signed On 07-05-2023 12:44:38 CDT by Derian Garcia M.D. [id number]
--- NOTE | 2023-07-04 16:44 | P.DS_ITS ---
Discharge Providers Date of Admission: 06/25/23 16:27 Date of Discharge: July 04, 2023 Attending Provider at Admission: Hossein Ledezma Attending Provider at Discharge: Jakob Gomez MD Consults: Cardiology: Dr. Zimmerman Primary Care Provider: Igor Aguilera Diagnoses at Discharge Discharge Diagnosis (1) Atrial fibrillation: Status: Acute Qualifiers: Atrial fibrillation type: unspecified Qualified Code(s): I48.91 - Unspecified atrial fibrillation Permanent problem details: Not anticoagulated due to ICH (2) Acute on chronic diastolic heart failure: Status: Acute (3) Dyslipidemia: Status: Acute (4) OLLIE (acute kidney injury): Status: Acute (5) Hypotension determined by examination: Status: Acute Reason for Visit Reason for Visit: Chest Pain, SOB Brief History: History as per hpi: Dajuan Presley is a 77 year old male presented with palpitations, left-sided c hest pain, found to have tachycardia, A-fib with RVR, heart rates in 120s. He had missed some of his metoprolol. In ER he did not respond to Cardizem infusion, started on amiodarone drip, resumed on oral metoprolol. Received small dose push of metoprolol. Chest pain is sharp/stabbing, left-sided, not related to moving, sometimes worse with deep breath, does have dyspnea but states that this is a chronic issue. Denies any hemoptysis. Chronic lower extremity edema. Had an episode of vomiting this morning. Hospital Course Hospital Course Patient was admitted to the hospital further evaluation and management of A-fib with RVR and congestive heart failure. He was started on aggressive IV diuresis. He was started on treatment with IV Cardizem and was later transitioned to IV amiodarone. His heart rate was difficult to control so cardiology was consulted. Amiodarone was discontinued because of history of intolerance in the past. He was started on oral propafenone. Heart rate was better controlled with a combination of propafenone and metoprolol. His hospitalization was complicated by soft blood pressures and OLLIE. He was started on oral midodrine and pyridostigmine after which his blood pressures were better and OLLIE resolved. He also continued to have vomiting on and off for which CT abdomen pelvis done was done which was negative. His vomiting is most likely in setting of gastritis versus migraine. He was treated conservatively with clear liquid diet, Protonix, Zofran and scopolamine patch to which she responded well. Patient was to be monitored in the hospital for 1 more day but was discharged from the floor by mistake. Patient was called back while he was on the way home but he declined to come back. Discharge plan were discussed in detail with patient's daughter over the phone. Danger signs were discussed in detail with patient's daughter over the phone. She was advised to maintain oral hydration with clear liquid diet up to 1500 cc. She was advised to continue with scopolamine patch as needed. He has been discharged in hemodynamically stable condition on oral propafenone 3 times a day, metoprolol twice daily. He is to continue taking pyridostigmine twice daily and midodrine 5 mg twice daily as needed for systolic blood pressure of less than 100 mmHg. He is advised that his goal blood pressure is between 100/80 and 140/90 mmHg. Home health has been arranged. He is to take Lasix 40 mg twice daily. He is to continue with lifestyle modification for congestive heart failure. For now he is to continue taking clear liquid diet for 2 to 3 days and then advance gradually to a regular diet within next 1 week. Physical Exam Narrative: General: No acute distress, AO x3, morbidly obese, in mild distress because of nausea HEENT: PERRLA, pupils bilaterally equal and reactive Chest: Bilateral bronchial breath sounds with occasional rhonchi CVS: S1-S2 irregularly irregular, no murmurs, no tachycardia, no gallops, no rubs Abdomen: Soft, nontender, no organomegaly, bowel sounds present Neuro: No focal deficits, no facial deformity, AO x3, power 5/5 in all limbs Discharge Data Studies Completed and Pending Completed Studies During Hospitalization Category Date Time Status CT abdomen pelvis wo con [id number] Routine Cat Scan 07/03/23 11:53 Completed XR chest 1V portable [id number] Routine Exams 06/29/23 09:23 Completed XR chest 1V portable [id number] Stat Exams 06/24/23 10:47 [place] [id number] Routine Ultrasound 06/24/23 17:56 Completed CV. echo wo/w contrast [id number] Routine Ultrasound 06/24/23 17:56 Completed Radiology Impressions Venous Duplex 06/24/23 17:56 IMPRESSION: No evidence of deep vein thrombosis. Abdomen/Pelvis CT 07/03/23 11:53 IMPRESSION: No acute abdominal findings. Laboratory Results WBC 7.75 10^3/uL (3.29-11.43) 07/04/23 05:37 RBC 4.01 10^6/uL (3.85-5.65) 07/04/23 05:37 Hgb 13.20 g/dL (11.27-16.99) 07/04/23 05:37 Hct 41.0 % (37-53) 07/04/23 05:37 MCV 102.2 fl (82-101) H 07/04/23 05:37 MCH 32.9 pg (27-33) 07/04/23 05:37 MCHC 32.2 g/dL (30-55) 07/04/23 05:37 RDW 12.5 % (12.1-15.1) 07/04/23 05:37 Plt Count 137 10^3/cmm (157-399) L 07/04/23 05:37 MPV 11.8 fL (7.4-10.4) H 07/04/23 05:37 Neut % (Auto) 70.1 % 07/04/23 05:37 Lymph % (Auto) 18.7 % 07/04/23 05:37 Bonner % (Auto) 9.3 % 07/04/23 05:37 Eos % (Auto) 0.9 % 07/04/23 05:37 Baso % (Auto) 0.4 % 07/04/23 05:37 Neut # (Auto) 5.43 10^3/uL (1.8-7.7) 07/04/23 05:37 Lymph # (Auto) 1.5 10^3/uL (0.8-4.8) 07/04/23 05:37 Bonner # (Auto) 0.7 10^3/uL (0.2-0.9) 07/04/23 05:37 Eos # (Auto) 0.1 10^3/uL (0.0-0.8) 07/04/23 05:37 Baso # (Auto) 0.0 10^3/uL (0.0-0.1) 07/04/23 05:37 Nucleated RBC % (auto) 0 % 07/04/23 05:37 Nucleated RBCs # 0.0 /100WBC 07/04/23 05:37 D-Dimer 0.75 ug/mLFEU (0-0.59) H 06/24/23 11:00 Sodium 139 mmol/L (136-145) 07/04/23 05:37 Potassium 3.6 mmol/L (3.5-5.1) 07/04/23 05:37 Chloride 92 mmol/L (98-107) L 07/04/23 05:37 Carbon Dioxide 41 mmol/L (22-29) H 07/04/23 05:37 Anion Gap 9.6 (5-19) 07/04/23 05:37 BUN 21 mg/dL (8-23) 07/04/23 05:37 Creatinine 1.6 mg/dL (0.7-1.2) H 07/04/23 05:37 GFR Calculation Not Reportable 07/04/23 05:37 Glucose 113 mg/dL (65-115) 07/04/23 05:37 POC Glucose 112 mg/dL (70-110) H 07/03/23 19:24 Estimat Average Glucose 103 06/30/23 02:53 Hemoglobin A1c 5.2 % (4.0-6.0) 06/30/23 02:53 Calculated Osmolality 292 mOsm/kg (285-295) 07/04/23 05:37 Calcium 9.2 mg/dL (8.5-10.5) 07/04/23 05:37 Magnesium 2.5 mg/dL (1.7-2.3) H 07/02/23 03:29 Iron 89 ug/dL (59-158) 06/29/23 03:52 TIBC 186 mcg/dl 06/29/23 03:52 % Saturation 47.8 % (20-50) 06/29/23 03:52 Unsat Iron Binding 97 ug/dL (112-347) L 06/29/23 03:52 Total Bilirubin 0.5 mg/dL (0.15-1.2) 07/04/23 05:37 AST 34 U/L (0-40) 07/04/23 05:37 ALT 16 U/L (0-41) 07/04/23 05:37 Alkaline Phosphatase 73 U/L (40-130) 07/04/23 05:37 Troponin T 5th Gen ng/L 81 ng/L (0-15) H 06/26/23 23:41 Troponin T Baseline 81 ng/L (0-15) H 06/24/23 11:00 Troponin T 120 Minute 78.29 ng/L (0-15) H 06/24/23 13:07 Delta Troponin T -2.71 ABS# (0-10) L 06/24/23 13:07 Troponin T Hi Sens 6Hr 84.23 ng/L (0-15) H 06/24/23 17:25 Troponin T Hi Sens 6Hr Delta 3.23 ng/L (0-12) 06/24/23 17:25 NT-Pro-B Natriuret Pep 739 pg/mL (0-450) H 06/29/23 03:52 Total Protein 6.8 g/dL (6.6-8.7) 07/04/23 05:37 Albumin 3.8 g/dL (3.5-5.2) 07/04/23 05:37 Globulin 3.0 g/dL (1.3-4.6) 07/04/23 05:37 Triglycerides 130 mg/dL (0-150) 06/30/23 02:53 Cholesterol 187 mg/dL (0-200) 06/30/23 02:53 LDL Cholesterol, Calc 96 mg/dL (50-129) 06/30/23 02:53 Total VLDL Cholesterol 26 mg/dL (0-30) 06/30/23 02:53 HDL Cholesterol 65 mg/dL (60-100) 06/30/23 02:53 Cholesterol/HDL Ratio 2.88 mg/dL (1.0-5.00) 06/30/23 02:53 Vitamin B12 285 pg/mL (232-1245) 06/29/23 03:52 Folate 16.9 ng/mL (4.5-32.2) 06/30/23 02:53 TSH 2.00 uIU/mL (0.27-4.20) 06/24/23 11:00 Urine Color Yellow (Yellow) 06/25/23 16:25 Urine Appearance Clear (CLEAR) 06/25/23 16:25 Urine pH 5 (5-7) 06/25/23 16:25 Ur Specific [place] 1.020 (1.005-1.030) 06/25/23 16:25 Urine Protein Neg (Negative) 06/25/23 16:25 Urine Glucose (UA) Norm (Normal) 06/25/23 16:25 Urine Ketones Negative (Negative) 06/25/23 16:25 Urine Blood Neg (Negative) 06/25/23 16:25 Urine Nitrate Negative (Negative) 06/25/23 16:25 Urine Bilirubin Neg (Negative) 06/25/23 16:25 Urine Urobilinogen Norm mg/dL (Negative) 06/25/23 16:25 Ur Leukocyte Esterase Negative (Negative) 06/25/23 16:25 Ur Random Urea Nitrogn 123 mg/dL 06/29/23 21:50 Urine Creatinine 40 mg/dL (39-259) 06/29/23 21:50 Adenovirus (PCR) Not detected (NOT DETECT) 06/26/23 23:15 C. pneumoniae DNA (PCR) Not detected (NOT DETECT) 06/26/23 23:15 Coronavirus 229E (PCR) Not detected (NOT DETECT) 06/26/23 23:15 Human Metapneumovir PCR Not detected (NOT DETECT) 06/26/23 23:15 Influenza A (H1) PCR Not detected (NOT DETECT) 06/26/23 23:15 Influ A (H1/09) PCR Not detected (NOT DETECT) 06/26/23 23:15 Influenza A (H3) PCR Not detected (NOT DETECT) 06/26/23 23:15 Influenza Type A (PCR) Not detected (NOT DETECT) 06/26/23 23:15 Influenza Type B (PCR) Not detected (NOT DETECT) 06/26/23 23:15 M. pneumoniae (PCR) Not detected (NOT DETECT) 06/26/23 23:15 Parainfluenza 1 (PCR) Not detected (NOT DETECT) 06/26/23 23:15 Parainfluenza 2 (PCR) Not detected (NOT DETECT) 06/26/23 23:15 Parainfluenza 3 (PCR) Not detected (NOT DETECT) 06/26/23 23:15 Parainfluenza 4 (PCR) Not detected (NOT DETECT) 06/26/23 23:15 RSV Type A (PCR) Not detected (NOT DETECT) 06/26/23 23:15 RSV Type B (PCR) Not detected (NOT DETECT) 06/26/23 23:15 Entero/Rhino (PCR) Not detected (NOT DETECT) 06/26/23 23:15 SARS-CoV-2 (PCR) Not detected (NOT DETECT) 06/26/23 23:15 Vitals Last Vital Signs Temp 98.0 F 07/04/23 11:31 Pulse 68 07/04/23 11:31 Resp 16 07/04/23 11:31 BP 113/65 07/04/23 07:48 Pulse Ox 93 07/04/23 11:31 O2 Del Method Nasal Cannula 07/04/23 11:31 O2 Flow Rate 2 07/03/23 09:09 Discharge Plan Discharge Patient Disposition: Home Health Service Condition: Stable Prescriptions: New midodrine 5 mg Tablet 5 mg PO BID Qty: 60 0RF pyridostigmine bromide 60 mg Tablet 60 mg PO BID Qty: 60 0RF metoprolol tartrate 50 mg Tablet 25 mg PO BID Qty: 30 0RF propafenone 150 mg Tablet 150 mg PO TID Qty: 90 0RF scopolamine base 1 mg over 3 days patch 3 day 1 patch transdermal Q3D PRN (Reason: nausea and vomiting) Qty: 4 0RF Continued albuterol sulfate [ProAir HFA] 90 mcg/actuation HFA aerosol inhaler 2 puff INHALATION Q6H PRN (Reason: Shortness Of Breath Or Wheezing) tamsulosin 0.4 mg capsule 0.4 mg PO BEDTIME budesonide-formoterol 160-4.5 mcg/actuation HFA aerosol inhaler 2 puff inhalation BID nitroglycerin [Nitrostat] 0.4 mg tablet, sublingual 0.4 mg sublingual Q5M PRN (Reason: chest pain) Qty: 25 3RF Rx Instructions: do not exceed 3 doses per episode duloxetine 30 mg capsule,delayed release(DR/EC) 30 mg PO QAM oxycodone 15 mg Tablet 15 mg PO Q6H PRN (Reason: Pain) Hold Instructions: Resume on 11/26/21. ketoconazole 2 % shampoo See Rx Instructions .ROUTE .COMPLEX Rx Instructions: APPLY 10 ML TO WET SCALP, LATHER, LEAVE ON 3 MINUTES, AND RINSE; APPLY TWICE WEEKLY FOR 4 WEEKS. rizatriptan 10 mg tablet,disintegrating See Rx Instructions .ROUTE .COMPLEX Rx Instructions: PLACE 1 TABLET (10 MG) INSIDE CHEEK EVERY 2 HOURS NEEDED FOR MIGRAINE. MAY REPEAT IN 2 HOURS; MAX DOSE 20MG IN 24 HOURS bupropion HCl 300 mg tablet extended release 24 hr 300 mg PO QAM Myrbetriq 25 mg tablet extended release 24 hr 25 mg PO QAM albuterol sulfate 2.5 mg /3 mL (0.083 %) solution for nebulization 2.5 mg inhalation Q4H PRN (Reason: Shortness Of Breath) ipratropium-albuterol 0.5 mg-3 mg(2.5 mg base)/3 mL Solution For Nebulization 3 ml INHALATION Q6H PRN (Reason: Shortness Of Breath) aspirin 81 mg Tablet,Delayed Release (Dr/Ec) 81 mg PO QAM acetaminophen 650 mg Tablet Extended Release 650 mg PO Q6H PRN (Reason: Pain) ondansetron 4 mg Tablet,Disintegrating 4 mg PO Q8H PRN (Reason: Nausea And Vomiting) zolpidem [Ambien CR] 6.25 mg Tablet,Ext Release Multiphase 6.25 mg PO BEDTIME magnesium oxide 400 mg magnesium Tablet 400 mg PO QAM omeprazole 20 mg capsule,delayed release(DR/EC) 20 mg PO QAM cholecalciferol (vitamin D3) [Vitamin D3] 25 mcg (1,000 unit) Tablet 25 mcg PO DAILY PreserVision AREDS-2 250-90-40-1 mg Capsule 1 tab PO BID Changed potassium chloride 10 mEq capsule, extended release 10 meq PO DAILY Qty: 10 0RF furosemide 20 mg tablet 40 mg PO BID 30 Days Qty: 120 0RF Discontinued celecoxib [Celebrex] 200 mg capsule 200 mg PO BID lisinopril 40 mg tablet 40 mg PO QAM hydralazine 100 mg tablet 100 mg PO TID Qty: 270 2RF metoprolol tartrate 75 mg tablet 75 mg PO BID Qty: 90 3RF amlodipine 5 mg tablet 5 mg PO QAM spaswmpymu-nfljovotpmpmm-voft 50-325-40 mg Tablet 1 tab PO Q6H PRN (Reason: Headache) Discharge Orders: Discharge Order (Routine); Ordered 07/03/23 Ordered By: Jakob Gomez Other Ambulatory Orders: DME: Commode (Order) Location: None Selected Ordered By: Jakob Gomez DME: Oxygen (Order) Location: None Selected Ordered By: Hossein Ledezma Referrals: [facility] [Outside] [facility] [Outside] Igor Aguilera [Primary Care Provider] - 07/08/23 1:20 pm () Nahomi Quintana FNP [Nurse Practitioner] - 07/15/23 2:00 pm Discharge Diet: Cardiac Discharge Activity: Resume usual activity and Increase activity as tolerated Patient Instructions: Metoprolol (By mouth) (Lopressor, Toprol XL), Propafenone (By mouth) (Rythmol, Rythmol SR), Pyridostigmine [place] (By mouth) (Mestinon, Mestinon Timespan), Midodrine (By mouth), Heart Failure (DC), CHF Stoplight, Opioid Safety Activity Restrictions/Additional Instructions: Blood pressure twice daily and maintain a blood pressure diary and follow-up with a primary care provider within next 1 week. Goal blood pressure should be between 100/80 mmHg to 140/90 mmHg. Midodrine is a medication which he will be taking to keep your blood pressure high. For now you can take it twice daily as needed. You can take once daily as needed as an added medication if the blood pressure drops below 100 systolics. Take Lasix 40 mg twice daily. Restrict fluid intake to less than 1500 cc, salt intake to less than 2 g daily. Advised to check his weight daily at home. Is advised that weight today would be the dry weight and if body weight increases by around 5 pounds, patient is to take an extra dose of Lasix daily till body weight comes down to weight today. If not able to come down to dry body weight in 1 week, then is to call cardiology office for further recommendations. Patient was counseled in detail to take medications regularly as prescribed. Continue taking clear liquid diet for next 2 to 3 days and then advance to regular diet within next 1 week. Discharge Attestations Time Spent in Discharge Care*: greater than 30 min Specific Discharge Activities: educating patient, educating and/or supporting family/caregiver, discussing with pcp/other providers, discussing with onsite case manager/social workers/dc planners, documenting/other paperwork and evaluating patient/reviewing data Status at Discharge: Cognitive status at discharge: mildly impaired cognition , Behavioral status at discharge: cooperative , Functional status at discharge: other assisted ambulation , Overall status at discharge: patient is progressing back to baseline Quality Metrics Clinical Quality Measures [ No reported AMI, CVA or VTE this stay] Coding Level of Care Code 85224 Total time (in minutes) for Discharge: 70 Diagnoses Atrial fibrillation, unspecified type I48.91 Atrial fibrillation type: unspecified Acute on chronic diastolic heart failure I50.33 Dyslipidemia E78.5 OLLIE (acute kidney injury) N17.9 Hypotension determined by examination I95.9
== END 2023-07-04 15:40 | disposition home health service (06) | DRG 308 ==
LOC: ER 14:26 → CSU 20:37 → ER IP 06-25 06:08 → CSU 07-03 11:49 → MEDSURG 07-03 22:16
PROVIDERS: Admitting Provider Internal Medicine; Emergency Provider Family Medicine; PCP Family Medicine; Visit Provider Student in an Organized Health Care Education/Training Program
DX: I48.91 Unspecified atrial fibrillation (principal); I50.33 Acute on chronic diastolic (congestive) heart failure; I13.0 Hypertensive heart and chronic kidney disease with heart failure and stage 1 through stage 4 chronic kidney disease, or unspecified chronic kidney disease; N17.9 Acute kidney failure, unspecified; E78.5 Hyperlipidemia, unspecified; N40.1 Benign prostatic hyperplasia with lower urinary tract symptoms; N18.9 Chronic kidney disease, unspecified; I25.10 Atherosclerotic heart disease of native coronary artery without angina pectoris; G43.709 Chronic migraine without aura, not intractable, without status migrainosus; I95.1 Orthostatic hypotension; K29.70 Gastritis, unspecified, without bleeding; Z79.82 Long term (current) use of aspirin; Z11.52 Encounter for screening for COVID-19; Z86.73 Personal history of transient ischemic attack (TIA), and cerebral infarction without residual deficits; Z95.1 Presence of aortocoronary bypass graft; Z87.891 Personal history of nicotine dependence
CPT/HCPCS: 36415; 36416; 51798; 71045; 74176; 80048; 80053; 80061; 81003; 82570; 82607; 82746; 82962; 83036; 83540; 83550; 83735; 83880; 84443; 84484; 84540; 85025; 85378; 87486; 87581; 87633; 93005; 93970; 94640; 94760; 96365; 96366; 96367; 96372; 96375; 96376; 97110; 97116; 97161; 97530; 99285; A4222; C8929; C9113; G0378; J0131; J0283; J1644; J1940; J2405; J3490; J7030; J7613; P9046; Q9956

== ENCOUNTER 2023-07-08 22:28 | Emergency (ER) | payer MEDICARE, SELFPAY ==
[2023-07-08 22:29] VITALS: BP 142/83; PULSE 71; RESP 16; O2SAT 98; BMI 40.1
[2023-07-08 22:37] VITALS: TEMP 36.9
--- NOTE | 2023-07-08 22:38 | XRR_ITS ---
PROCEDURE INFORMATION: Exam: XR Chest Exam date and time: 07/08/2023 11:00 PM Age: 77 years old Clinical indication: Dyspnea TECHNIQUE: Imaging protocol: Radiologic exam of the chest. Views: 1 view. COMPARISON: CR XR chest 1V portable [id number] 06/29/2023 9:55 AM FINDINGS: Lungs: Unremarkable. No consolidation. Pleural spaces: Unremarkable. No pleural effusion. No pneumothorax. Heart/Mediastinum: Unremarkable. No cardiomegaly. Bones/joints: Unremarkable. XR/XR chest 1V portable [id number] IMPRESSION: No acute findings.
--- NOTE | 2023-07-08 22:38 | ECG_ITS ---
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 Measurements Intervals [place] Rate: 69 P: 0 DC: 0 QRS: -31 QRSD: 130 T: 21 QT: 358 QTc: 384 Interpretive Statements ATRIAL FIBRILLATION LEFT AXIS DEVIATION [QRS AXIS < -30] MODERATE INTRAVENTRICULAR CONDUCTION DELAY [110+ ms QRS DURATION] NONSPECIFIC ST & T-WAVE ABNORMALITY Compared to ECG 07/04/2023 15:00:01 Left-axis deviation now present T-wave abnormality now present Sinus bradycardia no longer present First degree AV block no longer present Myocardial infarct finding no longer present Electronically Signed On 07-09-2023 17:16:34 CDT by Derian Garcia M.D. [id number]
--- NOTE | 2023-07-08 22:40 | ED_ITS ---
HPI - Altered Mental Status 2 General: Chief Complaint: Altered Mental Status Stated Complaint: AMS Time Seen by Provider: 07/08/23 22:35 History of Present Illness: Patient presents to the hospital with main complaint of problems breathing. Patient does have a history of COPD, respiratory failure, A-fib, acute kidney injury, patient was just discharged approximately 4 days ago from 11-day stay. Patient had multiple medication changes including medications for A-fib and hypotension. Patient states over the last several days he just felt like he cannot catch his breath and his breathing is getting worse. Patient is normally on 2 L of oxygen which she is on 2 L of oxygen upon arrival with O2 sat of 98%. Review of Systems 2 General: Reports: 10 or more systems reviewed and unremarkable except in HPI and below PFSH ED 2 PFSH: Medical History Dyslipidemia Subdural hematoma BPH (benign prostatic hyperplasia) Lower urinary tract symptoms (LUTS) Arthritis Chronic migraine Chronic kidney disease History of TIA (transient ischemic attack) ASHD (arteriosclerotic heart disease) CHF (congestive heart failure) HTN (hypertension) Surgical History Hx of CABG H/O craniotomy Previous back surgery S/P knee replacement S/P shoulder surgery S/P carpal tunnel release Family History Mother , AT AGE 76 BRAIN ANEURYSM No problems noted. Father , AT AGE 84 APPLIED PSYCHOLOGY PROFESSOR,HEART DISEASE Cancer PROSTATE CAD (coronary artery disease) Social History Smoking and tobacco/nicotine status: former use of tobacco/nicotine Alcohol intake: unknown Substance/Drug Use: unknown Adopted: No Caregiver/support person: No Lives independently: Yes Marital status: / Current occupational status: retired Current gender identity: Male Physical Exam 2 Const: COMMON NORMALS: no acute distress, average body habitus, patient oriented x3, no limitations, healthy appearing, alert and well nourished HENMT: COMMON NORMALS: normocephalic, atraumatic, hearing grossly normal bilaterally, external ears normal, Normal external nose present, moist oral mucous membranes and oropharynx normal HEAD & SCALP: normocephalic and atraumatic NOSE: Normal external nose present EXTERNAL EAR: Yes external ears normal Neck/C-Spine: COMMON NORMALS: no JVD Chest: COMMONS NORMALS: normal inspection of the chest and normal palpation of entire chest wall Resp: COMMON NORMALS: normal respiratory effort, No retractions, No use of accessory muscles and clear to auscultation bilaterally (Decreased breath sounds bilaterally) AUSCULTATION: clear to auscultation bilaterally (Decreased breath sounds bilaterally) Cardio: COMMON NORMALS: no JVD, S1 normal heart sound present, S2 normal heart sound present, No gallops present (Cardio), No murmurs present (Cardio) and No rub (Cardio); negative for regular rate (Irregularly irregular rhythm) RATE: abnormal rate (Irregularly irregular rhythm) HEART SOUNDS: S1 normal heart sound present and S2 normal heart sound present GI: COMMON NORMALS: Normal to inspection, nondistended, normoactive bowel sounds present, Soft to palpation, non-tender, No hepatosplenomegaly present and no masses PALPATION: Yes Soft to palpation and Yes No hepatosplenomegaly present Extremity: NARRATIVE EXTREMITY EXAM: Negative for bilateral lower extremity edema Neuro: COMMON NORMALS: patient oriented x3 SENSORIUM/ORIENTATION: Yes alert Course 2 Vital Signs: Vital signs: Vital Signs Temperature 98.5 F 07/08/23 22:37 Pulse Rate 87 07/09/23 01:07 Respiratory Rate 16 07/08/23 22:29 Blood Pressure 133/84 07/09/23 01:07 Pulse Oximetry 99 07/08/23 23:52 Oxygen Delivery Me thod Room Air 07/08/23 23:52 Oxygen Flow Rate 2 07/08/23 22:29 MDM - Altered Mental Status Medical Decision Making Patient had lab work that included CBC CMP troponins, EKGs, chest x-rays all which was essentially benign except showing mild hypokalemia and chronic renal insufficiency, patient will be given 40 mEq oral potassium here and discharged home on 20 mill equivalents a day for the next 7 days. Patient should follow-up with his PCP for further evaluation and treatment. Differential Diagnosis Unlikely alcoholic intoxication, altered mental status, delirium, dementia, hypoglycemia, hyponatremia, subarachnoid hemorrhage or sepsis Medical Records I reviewed the patient's medical records. Lab Data I reviewed the patient's lab results. 07/08/23 21:55 07/08/23 21:55 Radiology Impressions Chest X-Ray 07/08/23 22:38 IMPRESSION: No acute findings. Laboratory Results WBC 9.18 10^3/uL (3.29-11.43) 07/08/23 21:55 RBC 4.01 10^6/uL (3.85-5.65) 07/08/23 21:55 Hgb 13.60 g/dL (11.27-16.99) 07/08/23 21:55 Hct 40.8 % (37-53) 07/08/23 21:55 MCV 101.7 fl (82-101) H 07/08/23 21:55 MCH 33.9 pg (27-33) H 07/08/23 21:55 MCHC 33.3 g/dL (30-55) 07/08/23 21:55 RDW 12.9 % (12.1-15.1) 07/08/23 21:55 Plt Count 149 10^3/cmm (157-399) L 07/08/23 21:55 MPV 11.9 fL (7.4-10.4) H 07/08/23 21:55 Neut % (Auto) 71.1 % 07/08/23 21:55 Lymph % (Auto) 16.8 % 07/08/23 21:55 [place] % (Auto) 10.7 % 07/08/23 21:55 Eos % (Auto) 0.7 % 07/08/23 21:55 Baso % (Auto) 0.5 % 07/08/23 21:55 Neut # (Auto) 6.53 10^3/uL (1.8-7.7) 07/08/23 21:55 Lymph # (Auto) 1.5 10^3/uL (0.8-4.8) 07/08/23 21:55 [place] # (Auto) 1.0 10^3/uL (0.2-0.9) H 07/08/23 21:55 Eos # (Auto) 0.1 10^3/uL (0.0-0.8) 07/08/23 21:55 Baso # (Auto) 0.1 10^3/uL (0.0-0.1) 07/08/23 21:55 Nucleated RBC % (auto) 0 % 05/08/24 21:55 Nucleated RBCs # 0.0 /100WBC 07/08/23 21:55 Sodium 139 mmol/L (136-145) 07/08/23 21:55 Potassium 3.1 mmol/L (3.5-5.1) L 07/08/23 21:55 Chloride 91 mmol/L (98-107) L 07/08/23 21:55 Carbon Dioxide 40 mmol/L (22-29) H 07/08/23 21:55 Anion Gap 11.1 (5-19) 07/08/23 21:55 BUN 18 mg/dL (8-23) 07/08/23 21:55 Creatinine 1.7 mg/dL (0.7-1.2) H 07/08/23 21:55 GFR Calculation Not Reportable 07/08/23 21:55 Glucose 165 mg/dL (65-115) H 07/08/23 21:55 Calculated Osmolality 294 mOsm/kg (285-295) 07/08/23 21:55 Calcium 9.4 mg/dL (8.5-10.5) 07/08/23 21:55 Magnesium 2.0 mg/dL (1.7-2.3) 07/08/23 21:55 Total Bilirubin 0.5 mg/dL (0.15-1.2) 07/08/23 21:55 AST 34 U/L (0-40) 07/08/23 21:55 ALT 18 U/L (0-41) 07/08/23 21:55 Alkaline Phosphatase 77 U/L (40-130) 07/08/23 21:55 Troponin T Baseline 91 ng/L (0-15) H 07/08/23 21:55 Troponin T 120 Minute 80.78 ng/L (0-15) H 07/09/23 00:25 Delta Troponin T -10.22 ABS# (0-10) L 07/09/23 00:25 NT-Pro-B Natriuret Pep 1822 pg/mL (0-450) H 07/08/23 21:55 Total Protein 6.9 g/dL (6.6-8.7) 07/08/23 21:55 Albumin 4.0 g/dL (3.5-5.2) 07/08/23 21:55 Globulin 2.9 g/dL (1.3-4.6) 07/08/23 21:55 All radiology interpretation(s) finalized by discharge EKG Data EKG 1: I personally reviewed and interpreted this EKG as follows: EKG interpretation date: 07/08/23 EKG interpretation time: 22:36 Interpretation: Ventricular rate 69 bpm, QRS duration 130, QTc 376, A-fib, Discharge Plan Discharge Patient Disposition: Home Clinical Impression: Acute hypokalemia Chronic kidney disease Qualifiers: Chronic kidney disease stage: unspecified stage Qualified Code(s): N18.9 - Chronic kidney disease, unspecified Atrial fibrillation Qualifiers: Atrial fibrillation type: unspecified Qualified Code(s): I48.91 - Unspecified atrial fibrillation Condition: Stable Prescriptions: New potassium chloride 20 mEq tablet extended release 20 meq PO DAILY Qty: 7 0RF ondansetron 4 mg tablet,disintegrating 4 mg PO Q6H PRN (Reason: nausea and vomiting) Qty: 20 0RF No Action albuterol sulfate [ProAir HFA] 90 mcg/actuation HFA aerosol inhaler 2 puff INHALATION Q6H PRN (Reason: Shortness Of Breath Or Wheezing) tamsulosin 0.4 mg capsule 0.4 mg PO BEDTIME budesonide-formoterol 160-4.5 mcg/actuation HFA aerosol inhaler 2 puff inhalation BID nitroglycerin [Nitrostat] 0.4 mg tablet, sublingual 0.4 mg sublingual Q5M PRN (Reason: chest pain) Qty: 25 3RF Rx Instructions: do not exceed 3 doses per episode duloxetine 30 mg capsule,delayed release(DR/EC) 30 mg PO QAM oxycodone 15 mg Tablet 15 mg PO Q6H PRN (Reason: Pain) Hold Instructions: Resume on 11/26/21. ketoconazole 2 % shampoo See Rx Instructions .ROUTE .COMPLEX Rx Instructions: APPLY 10 ML TO WET SCALP, LATHER, LEAVE ON 3 MINUTES, AND RINSE; APPLY TWICE WEEKLY FOR 4 WEEKS. rizatriptan 10 mg tablet,disintegrating See Rx Instructions .ROUTE .COMPLEX Rx Instructions: PLACE 1 TABLET (10 MG) INSIDE CHEEK EVERY 2 HOURS NEEDED FOR MIGRAINE. MAY REPEAT IN 2 HOURS; MAX DOSE 20MG IN 24 HOURS bupropion HCl 300 mg tablet extended release 24 hr 300 mg PO QAM Myrbetriq 25 mg tablet extended release 24 hr 25 mg PO QAM albuterol sulfate 2.5 mg /3 mL (0.083 %) solution for nebulization 2.5 mg inhalation Q4H PRN (Reason: Shortness Of Breath) ipratropium-albuterol 0.5 mg-3 mg(2.5 mg base)/3 mL Solution For Nebulization 3 ml INHALATION Q6H PRN (Reason: Shortness Of Breath) aspirin 81 mg Tablet,Delayed Release (Dr/Ec) 81 mg PO QAM acetaminophen 650 mg Tablet Extended Release 650 mg PO Q6H PRN (Reason: Pain) ondansetron 4 mg Tablet,Disintegrating 4 mg PO Q8H PRN (Reason: Nausea And Vomiting) zolpidem [Ambien CR] 6.25 mg Tablet,Ext Release Multiphase 6.25 mg PO BEDTIME magnesium oxide 400 mg magnesium Tablet 400 mg PO QAM midodrine 5 mg Tablet 5 mg PO BID Qty: 60 0RF pyridostigmine bromide 60 mg Tablet 60 mg PO BID Qty: 60 0RF metoprolol tartrate 50 mg Tablet 25 mg PO BID Qty: 30 0RF potassium chloride 10 mEq capsule, extended release 10 meq PO DAILY Qty: 10 0RF furosemide 20 mg tablet 40 mg PO BID 30 Days Qty: 120 0RF propafenone 150 mg Tablet 150 mg PO TID Qty: 90 0RF scopolamine base 1 mg over 3 days patch 3 day 1 patch transdermal Q3D PRN (Reason: nausea and vomiting) Qty: 4 0RF omeprazole 20 mg capsule,delayed release(DR/EC) 20 mg PO QAM cholecalciferol (vitamin D3) [Vitamin D3] 25 mcg (1,000 unit) Tablet 25 mcg PO DAILY PreserVision AREDS-2 250-90-40-1 mg Capsule 1 tab PO BID Discharge Orders: Discharge ED (Routine); Ordered 07/09/23 Ordered By: Aidan Lima Referrals: Igor Aguilera [Primary Care Provider] - 1 week Patient Instructions: Atrial Fibrillation, Hypokalemia (ED) Activity Restrictions/Additional Instructions: Your evaluation in ER revealed your potassium is low. Your dose of potassium has been increased to 20 mEq daily for the next 7 days. pLease follow-up with your family practice physician during this time for further evaluation and treatment and recheck of your potassium. 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
[2023-07-08 22:44] LABS: Basophils # 0.1 10^3/uL (0.0-0.1); Basophils % 0.5 %; Eosinophils # 0.1 10^3/uL (0.0-0.8); Eosinophils % 0.7 %; Hematocrit 40.8 % (37-53); Lymphocytes # 1.5 10^3/uL (0.8-4.8); Lymphocytes % 16.8 %; Mean Corpuscular HGB Conc 33.3 g/dL (30-55); Mean Corpuscular Hemoglobin 33.9 pg (27-33); Mean Corpuscular Volume 101.7 fl (82-101); Mean Platelet Volume 11.9 fL (7.4-10.4); Monocytes % 10.7 %; Neutrophils # 6.53 10^3/uL (1.8-7.7); Neutrophils % 71.1 %; Nucleated Red Blood Cells % 0 %; Platelet Count 149 10^3/cmm (157-399); Red Blood Count 4.01 10^6/uL (3.85-5.65); Red Cell Distribution Width 12.9 % (12.1-15.1); White Blood Count 9.18 10^3/uL (3.29-11.43)
[2023-07-08 23:01] LABS: Troponin(5th) Baseline 91 ng/L (0-15)
[2023-07-08 23:05] LABS: Alanine Aminotransferase 18 U/L (0-41); Alkaline Phosphatase 77 U/L (40-130); Anion Gap 11.1 (5-19); Aspartate Amino Transferase 34 U/L (0-40); Blood Urea Nitrogen 18 mg/dL (8-23); Calcium 9.4 mg/dL (8.5-10.5); Carbon Dioxide 40 mmol/L (22-29); Chloride 91 mmol/L (98-107); Globulin 2.9 g/dL (1.3-4.6); Glucose 165 mg/dL (65-115); Osmolality Calculated 294 mOsm/kg (285-295); Potassium 3.1 mmol/L (3.5-5.1); Sodium 139 mmol/L (136-145); Total Bilirubin 0.5 mg/dL (0.15-1.2); Total Protein 6.9 g/dL (6.6-8.7)
[2023-07-08 23:06] LABS: Creatinine Clr Calc Pharmacy 47.9195
[2023-07-08 23:09] LABS: NT Pro B Type Natriuretic Pept 1822 pg/mL (0-450)
[2023-07-08 23:52] VITALS: BP 160/94; PULSE 65; O2SAT 99
--- NOTE | 2023-07-09 00:38 | ECG_ITS ---
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 Measurements Intervals [place] Rate: 66 P: 0 MS: 0 QRS: -12 QRSD: 141 T: 12 QT: 423 QTc: 443 Interpretive Statements ATRIAL FIBRILLATION INTRAVENTRICULAR CONDUCTION DELAY [130+ ms QRS DURATION] Compared to ECG 07/08/2023 22:36:19 Left-axis deviation no longer present T-wave abnormality no longer present Electronically Signed On 07-09-2023 17:23:44 CDT by Derian Garcia M.D. [id number]
[2023-07-09 00:53] LABS: Troponin 5 2HR 80.78 ng/L (0-15)
[2023-07-09 00:55] LABS: Troponin 5 2HR Delta -10.22 ABS# (0-10)
[2023-07-09 01:07] VITALS: BP 133/84; PULSE 87
[2023-07-09] MEDS: potassium chloride ER 20 mEq Tablet 40 MEQ PO (01:32)
[2023-07-09 01:48] VITALS: BP 143/111; PULSE 71; RESP 18
== END 2023-07-09 01:49 | disposition home or self-care (01) ==
PROVIDERS: Emergency Provider Emergency Medicine; PCP Family Medicine
DX: I48.91 Unspecified atrial fibrillation (principal); E87.6 Hypokalemia; I13.0 Hypertensive heart and chronic kidney disease with heart failure and stage 1 through stage 4 chronic kidney disease, or unspecified chronic kidney disease; N18.9 Chronic kidney disease, unspecified; I50.9 Heart failure, unspecified; E78.5 Hyperlipidemia, unspecified; Z86.73 Personal history of transient ischemic attack (TIA), and cerebral infarction without residual deficits; Z95.1 Presence of aortocoronary bypass graft; Z87.891 Personal history of nicotine dependence; Z79.82 Long term (current) use of aspirin
CPT/HCPCS: 71045; 80053; 83735; 83880; 84484; 85025; 93005; 99285

== ENCOUNTER → 2023-07-15 14:00 | Outpatient (BNVA) | payer MEDICARE, SELFPAY | PROVIDERS: PCP Family Medicine; Visit Provider Nurse Practitioner Family | DX: I48.91 Unspecified atrial fibrillation (principal); Z09 Encounter for follow-up examination after completed treatment for conditions other than malignant neoplasm; Z87.891 Personal history of nicotine dependence; I45.9 Conduction disorder, unspecified | CPT/HCPCS: 93005; 99213 ==

== ENCOUNTER 2023-07-22 09:33 | Outpatient (CLI) | payer MEDICARE, SELFPAY ==
--- NOTE | 2023-07-22 09:36 | FL_ITS ---
WS: [id number] Barium swallow and esophagram, 07/22/2023 Clinical Data: DYSPHAGIA Comparison: None. Fluoroscopy time: 1min [id number] # of spot films: 7 Findings: The patient swallowed the thick and thin barium, and it flowed through the hypopharynx without hesita tion. No stricture, mass, polyp or erosion was seen. No aspiration or penetration occurred. The patie nt had flexion deformity of the cervical spine in the AP view of the hypopharynx is limited. The barium entered the esophagus and there tertiary contractions. No normal motility occurred through out. No reflux, stricture, polyp, mass, erosion or ulcer was noted. There is a small hiatal hernia. No reflux was present. FL/FL barium swallow [id number] Impression: 1. Tertiary contractions through the entire esophagus. 2. Small hiatal hernia but no gastroesophageal reflux.
== END 2023-07-22 09:34 | disposition home or self-care (01) ==
LOC: RAD 09:33
PROVIDERS: PCP Family Medicine; Visit Provider Nurse Practitioner Family
DX: R13.10 Dysphagia, unspecified (principal); M43.8X2 Other specified deforming dorsopathies, cervical region; K44.9 Diaphragmatic hernia without obstruction or gangrene
CPT/HCPCS: 74220

== ENCOUNTER → 2023-10-08 11:26 | Outpatient (BNVA) | payer MEDICARE, SELFPAY | PROVIDERS: PCP Family Medicine; Visit Provider Internal Medicine Cardiovascular Disease | DX: I13.0 Hypertensive heart and chronic kidney disease with heart failure and stage 1 through stage 4 chronic kidney disease, or unspecified chronic kidney disease (principal); N18.9 Chronic kidney disease, unspecified; I50.33 Acute on chronic diastolic (congestive) heart failure; I25.10 Atherosclerotic heart disease of native coronary artery without angina pectoris; R00.1 Bradycardia, unspecified; I48.91 Unspecified atrial fibrillation; Z95.1 Presence of aortocoronary bypass graft; E78.5 Hyperlipidemia, unspecified; Z87.891 Personal history of nicotine dependence | CPT/HCPCS: 99214 ==

== ENCOUNTER → 2023-11-12 10:43 | Outpatient (BNVA) | payer MEDICARE, SELFPAY | PROVIDERS: PCP Family Medicine; Visit Provider Physician Assistant | DX: Z96.612 Presence of left artificial shoulder joint (principal) | CPT/HCPCS: 73030; 99213 ==

== ENCOUNTER → 2024-01-08 10:49 | Outpatient (BNVA) | payer MEDICARE, SELFPAY | PROVIDERS: PCP Family Medicine; Visit Provider Nurse Practitioner Family | DX: I13.0 Hypertensive heart and chronic kidney disease with heart failure and stage 1 through stage 4 chronic kidney disease, or unspecified chronic kidney disease (principal); N18.9 Chronic kidney disease, unspecified; Z87.891 Personal history of nicotine dependence; I50.33 Acute on chronic diastolic (congestive) heart failure; Z86.79 Personal history of other diseases of the circulatory system | CPT/HCPCS: 99214 ==

== ENCOUNTER 2024-02-15 06:03 | Emergency (ER) | payer MEDICARE, SELFPAY ==
[2024-02-15] VITALS (8 sets, daily range): BP systolic 127–145; BP diastolic 84–88; PULSE 81–88; RESP 16; TEMP 36.7; O2SAT 97–100; BMI 38.2
--- NOTE | 2024-02-15 06:31 | W.ED.HA ---
HPI - Headache General: Chief Complaint: Headache Stated Complaint: HEADACHE Time Seen by Provider: 02/15/24 06:05 History of Present Illness: 78-year-old male presents to the emergency room complaining of a headache. Patient has had chronic headache issues in the past. No recent falls denies fever sweats chills no chest pain abdominal pain nausea vomiting. He states he took all of his usual medicines yesterday. He has a history of hypertension. Patient states he was here last night and discharged home after receiving Toradol. I do not see any evidence in the chart that he had a visit last night. Overnight staff was still here when he arrived to they do not recall him being here either. No family present when he was initially seen. He has no focal neurologic deficits no sign of stroke. He states his headache is similar to what he has had in the past. He Early other extra medications as far as he is aware had a procedure usual prescription meds. His medicine list was reviewed he is quite extensive. Associated symptoms: Deny chest pain, fever(s) or rash Related Data Home Medications Medication Instructions Recorded Confirmed tamsulosin 0.4 mg capsule 0.4 mg PO BEDTIME 05/04/19 02/15/24 oxycodone 15 mg tablet 15 mg PO Q6H PRN Pain 08/03/20 02/15/24 budesonide-formoterol HFA 160 2 puff inhalation BID 11/26/22 02/15/24 mcg-4.5 mcg/actuation aerosol inhaler (Symbicort) omeprazole 20 mg capsule,delayed 20 mg PO QAM 12/01/22 02/15/24 release cholecalciferol (vitamin D3) 25 25 mcg PO DAILY 02/01/23 02/15/24 mcg (1,000 unit) tablet (Vitamin D3) vit C 250 mg-vit E 90 mg-zinc 40 1 tab PO BID 02/01/23 02/15/24 mg-copper 1 po-yolvhn-nfdsyh capsule (PreserVision AREDS-2) duloxetine 30 mg capsule,delayed 30 mg PO QAM 04/09/23 02/15/24 release acetaminophen 650 mg 650 mg PO Q6H PRN Pain 06/24/23 02/15/24 tablet,extended release albuterol sulfate 2.5 mg/3 mL 2.5 mg inhalation Q4H PRN 06/24/23 02/15/24 (0.083 %) solution for nebulization Shortness Of Breath aspirin 81 mg tablet,delayed 81 mg PO QAM 06/24/23 02/15/24 release bupropion HCl 300 mg 24 hr tablet, 300 mg PO QAM 06/24/23 02/15/24 extended release ipratropium 0.5 mg-albuterol 3 mg 3 ml inhalation Q6H PRN Shortness 06/24/23 02/15/24 (2.5 mg base)/3 mL nebulization Of Breath soln ketoconazole 2 % shampoo See Rx Instructions .Route .COMPLEX 06/24/23 02/15/24 magnesium oxide 400 mg PO QAM 06/24/23 02/15/24 ondansetron 4 mg disintegrating 4 mg PO Q8H PRN Nausea And Vomiting 06/24/23 02/15/24 tablet rizatriptan 10 mg disintegrating See Rx Instructions .Route .COMPLEX 06/24/23 02/15/24 tablet zolpidem 6.25 mg tablet,extended 6.25 mg PO BEDTIME 06/24/23 02/15/24 release,multiphase (Ambien CR) clonidine HCl 0.1 mg tablet 0.05 mg PO BID 10/08/23 02/15/24 potassium chloride 10 mEq 60 meq PO BID 10/08/23 02/15/24 capsule,extended release albuterol sulfate 90 mcg/actuation 2 inh inhalation QID 02/15/24 02/15/24 breath activated powder inhaler,sensor furosemide 40 mg tablet See Rx Instructions .Route .COMPLEX 02/15/24 02/15/24 Previous Rx's Medication Instructions Recorded nitroglycerin 0.4 mg sublingual 0.4 mg sublingual Q5M PRN chest 11/06/21 tablet (Nitrostat) pain #25 tabs metoprolol tartrate 50 mg tablet 25 mg (1/2 x 50 mg) PO BID #30 tabs 07/03/23 propafenone 150 mg tablet 150 mg PO TID #90 tabs 07/03/23 Allergies Allergy/AdvReac Type Severity Reaction Status Date / Time cefdinir [From Omnicef] Allergy Intermediate ADR-Vomitin Verified 01/08/24 10:56 g pentazocine [From Talwin] Allergy Unknown Unknown Verified 01/08/24 10:56 amiodarone AdvReac Intermediate Unknown Verified 01/08/24 10:56 Review of Systems Const: Denies: fever(s) or chills Card: Denies: chest pain Resp: Denies: dyspnea GI: Denies: abdominal pain : Denies: dysuria, urinary frequency or urinary urgency Musc: Denies: neck pain or back pain Skin/Breast: Denies: rash PFSH ED PFSH: Medical History Dyslipidemia Subdural hematoma BPH (benign prostatic hyperplasia) Lower urinary tract symptoms (LUTS) Arthritis Chronic migraine Chronic kidney disease History of TIA (transient ischemic attack) ASHD (arteriosclerotic heart disease) CHF (congestive heart failure) HTN (hypertension) Surgical History Hx of CABG H/O craniotomy Previous back surgery S/P knee replacement S/P shoulder surgery S/P carpal tunnel release Family History Mother , AT AGE 76 BRAIN ANEURYSM No problems noted. Father , AT AGE 84 APPAREL MANAGER,HEART DISEASE Cancer PROSTATE CAD (coronary artery disease) Social History Smoking and tobacco/nicotine status: former use of tobacco/nicotine Alcohol intake: unknown Substance/Drug Use: unknown Adopted: No Caregiver/support person: No Lives independently: Yes Marital status: / Current occupational status: retired Current gender identity: Male Physical Exam Const: COMMON NORMALS: no acute distress GENERAL APPEARANCE: cooperative and comfortable ORIENTATION/CONSCIOUSNESS: Yes awake, Yes oriented to person, Yes oriented to place and Yes oriented to time HENMT: COMMON NORMALS: normocephalic, atraumatic and hearing grossly normal bilaterally HEAD & SCALP: normocephalic and atraumatic Resp: COMMON NORMALS: normal respiratory effort, No retractions, No use of accessory muscles and clear to auscultation bilaterally AUSCULTATION: clear to auscultation bilaterally Cardio: COMMON NORMALS: regular rate, regular rhythm and No murmurs present (Cardio) RATE: regular rate RHYTHM: regular rhythm GI: COMMON NORMALS: Soft to palpation and No hepatosplenomegaly present AUSCULTATION: Yes normoactive bowel sounds PALPATION: Yes Soft to palpation, No Tenderness to palpation present (GI), No Guarding due to palpation present (GI) and Yes No hepatosplenomegaly present Extremity: COMMON NORMALS: normal to inspection, capillary refill normal, no clubbing, cyanosis or edema, no calf tenderness and no pedal edema Neuro: SENSORIUM/ORIENTATION: Yes oriented to person, Yes oriented to place and Yes oriented to time OTHER: No focal neurologic deficits noted Skin: COMMON NORMALS: no rashes or lesions noted GENERAL SKIN EXAM: no rashes or lesions noted Course Vital Signs: Vital signs: Vital Signs Temperature 98.1 F 02/15/24 06:11 Pulse Rate 88 02/15/24 07:33 Respiratory Rate 16 02/15/24 06:11 Blood Pressure 127/86 02/15/24 07:33 Pulse Oximetry 100 02/15/24 07:33 Oxygen Delivery Me thod Nasal Cannula 02/15/24 07:33 Oxygen Flow Rate 2 02/15/24 07:33 MDM - Headache Medical Decision Making Headache improved. We did do CT head chest x-ray and other labs some mild abnormalities but were not clinically significant. CT shows chronic changes but nothing acute. Headache is improved. Will discharge patient home continue current medications and follow-up with his primary care as needed Medical Records I reviewed the patient's medical records. Lab Data I reviewed the patient's lab results. 02/15/24 06:30 02/15/24 06:30 Radiology Impressions Chest X-Ray 02/15/24 07:06 IMPRESSION: No acute findings. Head CT 02/15/24 07:06 IMPRESSION: No acute intracranial pathology. Laboratory Results WBC 7.82 10^3/uL (3.29-11.43) 02/15/24 06:30 RBC 4.20 10^6/uL (3.85-5.65) 02/15/24 06:30 Hgb 13.80 g/dL (11.27-16.99) 02/15/24 06:30 Hct 44.5 % (37-53) 02/15/24 06:30 MCV 106.0 fl (82-101) H 02/15/24 06:30 MCH 32.9 pg (27-33) 02/15/24 06:30 MCHC 31.0 g/dL (30-55) 02/15/24 06:30 RDW 12.3 % (12.1-15.1) 02/15/24 06:30 Plt Count 119 10^3/cmm (157-399) L 02/15/24 06:30 MPV 11.1 fL (7.4-10.4) H 02/15/24 06:30 Neut % (Auto) 66.2 % 02/15/24 06:30 Lymph % (Auto) 23.7 % 02/15/24 06:30 [place] % (Auto) 8.8 % 02/15/24 06:30 Eos % (Auto) 0.6 % 02/15/24 06:30 Baso % (Auto) 0.4 % 02/15/24 06:30 Neut # (Auto) 5.18 10^3/uL (1.8-7.7) 02/15/24 06:30 Lymph # (Auto) 1.9 10^3/uL (0.8-4.8) 02/15/24 06:30 [place] # (Auto) 0.7 10^3/uL (0.2-0.9) 02/15/24 06:30 Eos # (Auto) 0.1 10^3/uL (0.0-0.8) 02/15/24 06:30 Baso # (Auto) 0.0 10^3/uL (0.0-0.1) 02/15/24 06:30 Nucleated RBC % (auto) 0 % 02/15/24 06:30 Nucleated RBCs # 0.0 /100WBC 02/15/24 06:30 Sodium 140 mmol/L (136-145) 02/15/24 06:30 Potassium 5.0 mmol/L (3.5-5.1) 02/15/24 06:30 Chloride 95 mmol/L (98-107) L 02/15/24 06:30 Carbon Dioxide 40 mmol/L (22-29) H 02/15/24 06:30 Anion Gap 10.0 (5-19) 02/15/24 06:30 BUN 13 mg/dL (8-23) 02/15/24 06:30 Creatinine 1.2 mg/dL (0.7-1.2) 02/15/24 06:30 GFR Calculation Not Reportable 02/15/24 06:30 Glucose 117 mg/dL (65-115) H 02/15/24 06:30 Calculated Osmolality 291 mOsm/kg (285-295) 02/15/24 06:30 Calcium 9.5 mg/dL (8.5-10.5) 02/15/24 06:30 Total Bilirubin 0.4 mg/dL (0.15-1.2) 02/15/24 06:30 AST 27 U/L (0-40) 02/15/24 06:30 ALT 13 U/L (0-41) 02/15/24 06:30 Alkaline Phosphatase 117 U/L (40-130) 02/15/24 06:30 Creatine Kinase 46 U/L (39-308) 02/15/24 06:30 Total Protein 6.9 g/dL (6.6-8.7) 02/15/24 06:30 Albumin 3.7 g/dL (3.5-5.2) 02/15/24 06:30 Globulin 3.2 g/dL (1.3-4.6) 02/15/24 06:30 Urine Color Yellow (Yellow) 02/15/24 08:46 Urine Appearance Clear (CLEAR) 02/15/24 08:46 Urine pH 7.0 (5-7) 02/15/24 08:46 [address] [place] 1.021 (1.005-1.030) 02/15/24 08:46 Urine Protein Trace (Negative) A 02/15/24 08:46 Urine Glucose (UA) Negative (Normal) 02/15/24 08:46 Urine Ketones Trace (Negative) 02/15/24 08:46 Urine Blood Negative (Negative) 02/15/24 08:46 Urine Nitrate Negative (Negative) 02/15/24 08:46 Urine Bilirubin Negative (Negative) 02/15/24 08:46 Urine Urobilinogen 1.0 mg/dL (Negative) 02/15/24 08:46 Ur Leukocyte Esterase Trace (Negative) A 02/15/24 08:46 Urine RBC 0-2 /hpf (0-2) 02/15/24 08:46 Urine WBC 0-5 /hpf (0-5) 02/15/24 08:46 Ur Squamous Epith Cells 0-5 /hpf (0-5) 02/15/24 08:46 Amorphous Sediment Not Reportable 02/15/24 08:46 Urine Bacteria None seen /hpf (NONE) 02/15/24 08:46 Hyaline Casts 1.21 /lpf 02/15/24 08:46 All radiology interpretation(s) finalized by discharge Discharge Plan Discharge Patient Disposition: Home Clinical Impression: Migraine Condition: Stable Prescriptions: No Action tamsulosin 0.4 mg capsule 0.4 mg PO BEDTIME budesonide-formoterol [Symbicort] 160-4.5 mcg/actuation HFA aerosol inhaler 2 puff inhalation BID nitroglycerin [Nitrostat] 0.4 mg tablet, sublingual 0.4 mg sublingual Q5M PRN (Reason: chest pain) Qty: 25 3RF Rx Instructions: do not exceed 3 doses per episode duloxetine 30 mg capsule,delayed release(DR/EC) 30 mg PO QAM potassium chloride 10 mEq capsule, extended release 60 meq PO BID clonidine HCl 0.1 mg tablet 0.05 mg PO BID oxycodone 15 mg Tablet 15 mg PO Q6H PRN (Reason: Pain) Hold Instructions: Resume on 11/26/21. ketoconazole 2 % shampoo See Rx Instructions .ROUTE .COMPLEX Rx Instructions: APPLY 10 ML TO WET SCALP, LATHER, LEAVE ON 3 MINUTES, AND RINSE; APPLY TWICE WEEKLY FOR 4 WEEKS. rizatriptan 10 mg tablet,disintegrating See Rx Instructions .ROUTE .COMPLEX Rx Instructions: PLACE 1 TABLET (10 MG) INSIDE CHEEK EVERY 2 HOURS NEEDED FOR MIGRAINE. MAY REPEAT IN 2 HOURS; MAX DOSE 20MG IN 24 HOURS bupropion HCl 300 mg tablet extended release 24 hr 300 mg PO QAM albuterol sulfate 2.5 mg /3 mL (0.083 %) solution for nebulization 2.5 mg inhalation Q4H PRN (Reason: Shortness Of Breath) ipratropium-albuterol 0.5 mg-3 mg(2.5 mg base)/3 mL Solution For Nebulization 3 ml INHALATION Q6H PRN (Reason: Shortness Of Breath) aspirin 81 mg Tablet,Delayed Release (Dr/Ec) 81 mg PO QAM acetaminophen 650 mg Tablet Extended Release 650 mg PO Q6H PRN (Reason: Pain) ondansetron 4 mg Tablet,Disintegrating 4 mg PO Q8H PRN (Reason: Nausea And Vomiting) zolpidem [Ambien CR] 6.25 mg Tablet,Ext Release Multiphase 6.25 mg PO BEDTIME magnesium oxide 400 mg magnesium Tablet 400 mg PO QAM metoprolol tartrate 50 mg Tablet 25 mg PO BID Qty: 30 0RF propafenone 150 mg Tablet 150 mg PO TID Qty: 90 0RF furosemide 40 mg tablet See Rx Instructions .ROUTE .COMPLEX Rx Instructions: 40 mg orally albuterol sulfate 90 mcg/actuation Aero Powdr Breath Act W/Sensor 2 inh INHALATION QID omeprazole 20 mg capsule,delayed release(DR/EC) 20 mg PO QAM cholecalciferol (vitamin D3) [Vitamin D3] 25 mcg (1,000 unit) Tablet 25 mcg PO DAILY PreserVision AREDS-2 250-90-40-1 mg Capsule 1 tab PO BID Discharge Orders: Discharge ED (Routine); Ordered 02/15/24 Ordered By: Sami Larose Referrals: Igor Aguilera [Primary Care Provider] - Discharge Diet: Usual diet Discharge Activity: Resume usual activity Patient Instructions: Opioid Safety, Pain Management Activity Restrictions/Additional Instructions: Thank you for choosing [facility] for your healthcare needs today. It is very important that you follow up as instructed or that you return to the Emergency Department should you have concerns or if your condition changes or worsens in any way. You are seen in the emergency room for complaints of a persistent headache. Headache improved with medications given continue your regular home medications and follow-up with your primary care doctor as needed. Chest x-ray CT of the head and other lab work done did not show clinically significant abnormalities there is no sign of bladder infection. 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
[2024-02-15] MEDS: prochlorperazine 10 mg/2 mL Inj IM (06:39)
[2024-02-15] MEDS: ketorolac 30 mg/mL INJ IVP (06:39)
[2024-02-15 06:43] LABS: Basophils % 0.4 %; Eosinophils # 0.1 10^3/uL (0.0-0.8); Eosinophils % 0.6 %; Hematocrit 44.5 % (37-53); Lymphocytes # 1.9 10^3/uL (0.8-4.8); Lymphocytes % 23.7 %; Mean Corpuscular Hemoglobin 32.9 pg (27-33); Mean Platelet Volume 11.1 fL (7.4-10.4); Monocytes # 0.7 10^3/uL (0.2-0.9); Monocytes % 8.8 %; Neutrophils # 5.18 10^3/uL (1.8-7.7); Neutrophils % 66.2 %; Nucleated Red Blood Cells % 0 %; Platelet Count 119 10^3/cmm (157-399); Red Cell Distribution Width 12.3 % (12.1-15.1); White Blood Count 7.82 10^3/uL (3.29-11.43)
[2024-02-15 07:02] LABS: Alanine Aminotransferase 13 U/L (0-41); Albumin Level 3.7 g/dL (3.5-5.2); Alkaline Phosphatase 117 U/L (40-130); Aspartate Amino Transferase 27 U/L (0-40); Blood Urea Nitrogen 13 mg/dL (8-23); Calcium 9.5 mg/dL (8.5-10.5); Carbon Dioxide 40 mmol/L (22-29); Chloride 95 mmol/L (98-107); Globulin 3.2 g/dL (1.3-4.6); Glucose 117 mg/dL (65-115); Osmolality Calculated 291 mOsm/kg (285-295); Sodium 140 mmol/L (136-145); Total Bilirubin 0.4 mg/dL (0.15-1.2); Total Protein 6.9 g/dL (6.6-8.7)
--- NOTE | 2024-02-15 07:06 | XRR_ITS ---
PROCEDURE INFORMATION: Exam: XR Chest Exam date and time: 02/15/2024 7:45 AM Age: 78 years old Clinical indication: Other: AMS; Additional info: Altered mental TECHNIQUE: Imaging protocol: Radiologic exam of the chest. Views: 1 view. COMPARISON: CR (CHEST, ) 07/08/2023 11:00 PM FINDINGS: Lungs: Unremarkable. No consolidation. Pleural spaces: Unremarkable. No pleural effusion. No pneumothorax. Heart/Mediastinum: See Vasculature finding. Vasculature: Borderline cardiomegaly and uncoiling of the thoracic aorta. Bones/joints: Total left shoulder replacement. XR/XR chest 1V portable [id number] IMPRESSION: No acute findings.
--- NOTE | 2024-02-15 07:06 | CTR_ITS ---
PROCEDURE INFORMATION: Exam: CT Head Without Contrast Exam date and time: 02/15/2024 7:40 AM Age: 78 years old Clinical indication: Altered mental status/memory loss; Prior surgery; Surgery date: 6+ months; Surgery type: Y HX of hemorrhagic stroke TECHNIQUE: Imaging protocol: Computed tomography of the head without contrast. Radiation optimization: All CT scans at this facility use at least one of these dose optimization techniques: automated exposure control; mA and/or kV adjustment per patient size (includes targeted exams where dose is matched to clinical indication); or iterative reconstruction. COMPARISON: CT head wo con* [id number] 12/01/2022 1:07 PM RADIATION DOSE METRICS: Total DLP (mGy-cm): 1120.84 FINDINGS: Brain: . No hemorrhage. Periventricular white matter lucency represents atherosclerotic encephalopathic changes. No mass effect. Mild left dural thickening with slight extra-axial fluid unchanged. Cerebral ventricles: No ventriculomegaly. Paranasal sinuses: Visualized sinuses are unremarkable. No fluid levels. Mastoid air cells: Visualized mastoid air cells are well aerated. Bones: Prior left craniotomy. Soft tissues: Unremarkable. CT/CT head wo con* [id number] IMPRESSION: No acute intracranial pathology.
--- NOTE | 2024-02-15 07:12 | PC.NURSE ---
took over pt care from NICOLA Sotelo @ 1590
[2024-02-15 07:50] LABS: Creatine Phosphokinase 46 U/L (39-308)
[2024-02-15 08:53] LABS: Bilirubin Urine Negative (Negative); Blood Urine Negative (Negative); Glucose Urine UA Negative (Normal); Ketones Urine Trace (Negative); Leukocyte Esterase Urine Trace (Negative); Nitrate Urine Negative (Negative); Protein Urine Trace (Negative); Specific Gravity, Urine 1.021 (1.005-1.030); Urine Appearance Clear (CLEAR); Urine Color Yellow (Yellow)
[2024-02-15 08:55] LABS: Add Urine Microscopic? YES; Bacteria Urine None Seen /hpf; Hyaline Casts Urine 1.21 /lpf; RBC Urine 0-2 /hpf (0-2); Squamous Epithelial Cell Urine 0-5 /hpf (0-5); WBC Urine 0-5 /hpf (0-5)
[2024-02-15] MEDS: morphine 4 mg/mL SDV 1 mL 2 MG IVP (09:49)
== END 2024-02-15 09:54 | disposition home or self-care (01) ==
PROVIDERS: Emergency Provider Family Medicine; PCP Family Medicine
DX: G43.909 Migraine, unspecified, not intractable, without status migrainosus (principal); Z79.82 Long term (current) use of aspirin; Z87.891 Personal history of nicotine dependence; Z86.73 Personal history of transient ischemic attack (TIA), and cerebral infarction without residual deficits; I13.0 Hypertensive heart and chronic kidney disease with heart failure and stage 1 through stage 4 chronic kidney disease, or unspecified chronic kidney disease; N18.9 Chronic kidney disease, unspecified; I50.9 Heart failure, unspecified; E78.5 Hyperlipidemia, unspecified
CPT/HCPCS: 70450; 71045; 80053; 81001; 82550; 85025; 96372; 96374; 96375; 99285; J0780; J1885; J2270

== ENCOUNTER → 2024-03-31 12:57 | Outpatient (BNVA) | payer MEDICARE, SELFPAY | PROVIDERS: PCP Family Medicine; Visit Provider Podiatrist Foot & Ankle Surgery | DX: I73.9 Peripheral vascular disease, unspecified (principal); L60.3 Nail dystrophy; L84 Corns and callosities | CPT/HCPCS: 11056; 11721; 99203 ==

== ENCOUNTER → 2024-04-11 15:00 | Outpatient (BNVA) | payer MEDICARE, SELFPAY | PROVIDERS: PCP Family Medicine; Visit Provider Internal Medicine Cardiovascular Disease | DX: I13.0 Hypertensive heart and chronic kidney disease with heart failure and stage 1 through stage 4 chronic kidney disease, or unspecified chronic kidney disease (principal); I50.33 Acute on chronic diastolic (congestive) heart failure; N18.9 Chronic kidney disease, unspecified; I48.91 Unspecified atrial fibrillation; I25.10 Atherosclerotic heart disease of native coronary artery without angina pectoris; J44.9 Chronic obstructive pulmonary disease, unspecified; Z87.891 Personal history of nicotine dependence | CPT/HCPCS: 99214 ==

== ENCOUNTER 2024-06-14 21:21 | Inpatient (IN) | payer MEDICARE, SELFPAY ==
[2024-06-14] VITALS (7 sets, daily range): BP systolic 112–147; BP diastolic 78–90; PULSE 88–112; RESP 18–25; TEMP 36.9; O2SAT 91–96; BMI 35.6
--- NOTE | 2024-06-14 21:23 | ECG_ITS ---
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 Measurements Intervals [place] Rate: 111 P: 0 NC: 0 QRS: -26 QRSD: 130 T: -24 QT: 329 QTc: 447 Interpretive Statements Possible ATRIAL FIBRILLATION WITH RAPID VENTRICULAR RESPONSE INDETERMINATE AXIS MODERATE INTRAVENTRICULAR CONDUCTION DELAY [110+ ms QRS DURATION] ABNORMAL RHYTHM ECG Compared to ECG 07/15/2023 14:29:19 Indeterminate axis now present Supraventricular rhythm no longer present Heavy baseline artifacts; Need to repeat the study. Electronically Signed On 06-15-2024 21:28:03 CDT by Nandini Zimmerman M.D. [email or web address]
--- NOTE | 2024-06-14 21:32 | XRR_ITS ---
PROCEDURE INFORMATION: Exam: XR Chest Exam date and time: 06/14/2024 9:35 PM Age: 78 years old Clinical indication: Shortness of breath; Additional info: Shortness of breathe TECHNIQUE: Imaging protocol: Radiologic exam of the chest. Views: 1 view. COMPARISON: CR XR chest 1V portable [id number] 02/15/2024 7:45 AM FINDINGS: Lungs: Bibasilar atelectasis. Pleural spaces: Unremarkable. No pleural effusion. No pneumothorax. Heart/Mediastinum: Unremarkable. No cardiomegaly. Bones/joints: Unremarkable. XR/XR chest 1V portable [id number] IMPRESSION: Bibasilar atelectasis.
--- NOTE | 2024-06-14 21:33 | W.ED.SOB ---
HPI - SOB/Dyspnea General: Chief Complaint: Shortness of Breath/Dyspnea Stated Complaint: SOB Time Seen by Provider: 06/14/24 21:28 History of Present Illness: HPI Narrative: Patient is a 78-year-old male from home with history of CHF and COPD seen for several days of coughing and increased shortness of breath. He wears 2 L of oxygen nasal cannula at all times and increases to 2.5 L when necessary. He states that on a good day he is able to walk around the house without difficulty but today he cannot take more than 5 steps without becoming profoundly short of breath. He also endorses increased orthopnea. He denies fever, chest pain, abdominal pain, nausea, vomiting, lightheadedness associated with the symptoms. He has not had any recent medication changes. He has no other acute complaints. Related Data Home Medications ?Medication ?Instructions ?Recorded ?Confirmed tamsulosin 0.4 mg capsule 0.4 mg PO BEDTIME 05/04/19 04/11/24 oxycodone 15 mg tablet 15 mg PO Q6H PRN Pain 08/03/20 04/11/24 omeprazole 20 mg capsule,delayed 20 mg PO QAM 12/01/22 04/11/24 release cholecalciferol (vitamin D3) 25 25 mcg PO DAILY 02/01/23 04/11/24 mcg (1,000 unit) tablet (Vitamin D3) vit C 250 mg-vit E 90 mg-zinc 40 1 tab PO BID 02/01/23 04/11/24 mg-copper 1 [id number] capsule (PreserVision AREDS-2) duloxetine 30 mg capsule,delayed 30 mg PO QAM 04/09/23 04/11/24 release acetaminophen 650 mg 650 mg PO Q6H PRN Pain 06/24/23 04/11/24 tablet,extended release albuterol sulfate 2.5 mg/3 mL 2.5 mg inhalation Q4H PRN 06/24/23 04/11/24 (0.083 %) solution for nebulization Shortness Of Breath aspirin 81 mg tablet,delayed 81 mg PO QAM 06/24/23 04/11/24 release bupropion HCl 300 mg 24 hr tablet, 300 mg PO QAM 06/24/23 04/11/24 extended release ipratropium 0.5 mg-albuterol 3 mg 3 ml inhalation Q6H PRN Shortness 06/24/23 03/31/24 (2.5 mg base)/3 mL nebulization Of Breath soln ketoconazole 2 % shampoo See Rx Instructions .Route .COMPLEX 06/24/23 03/31/24 magnesium oxide 400 mg PO QAM 06/24/23 04/11/24 ondansetron 4 mg disintegrating 4 mg PO Q8H PRN Nausea And Vomiting 06/24/23 03/31/24 tablet rizatriptan 10 mg disintegrating See Rx Instructions .Route .COMPLEX 06/24/23 04/11/24 tablet zolpidem 6.25 mg tablet,extended 6.25 mg PO BEDTIME 06/24/23 04/11/24 release,multiphase (Ambien CR) clonidine HCl 0.1 mg tablet 0.05 mg PO BID 10/08/23 04/11/24 potassium chloride 10 mEq 60 meq PO BID 10/08/23 04/11/24 capsule,extended release albuterol sulfate 90 mcg/actuation 2 inh inhalation QID 02/15/24 04/11/24 breath activated powder inhaler,sensor furosemide 40 mg tablet See Rx Instructions .Route .COMPLEX 02/15/24 04/11/24 budesonide 160 mcg-glycopyr 9 2 inh inhalation BID 04/11/24 04/11/24 mcg-formot 4.8 mcg/actuation HFA inhaler (Breztri Aerosphere) Previous Rx's ?Medication ?Instructions ?Recorded nitroglycerin 0.4 mg sublingual 0.4 mg sublingual Q5M PRN chest 11/06/21 tablet (Nitrostat) pain #25 tabs propafenone 150 mg tablet 150 mg PO TID #90 tabs 07/03/23 metoprolol tartrate 37.5 mg tablet 37.5 mg PO BID #90 tabs 04/11/24 Allergies Allergy/AdvReac Type Severity Reaction Status Date / Time cefdinir (From Omnicef) Allergy Intermediate ADR-Vomitin Verified 04/11/24 15:30 g pentazocine (From Talwin) Allergy Unknown Unknown Verified 04/11/24 15:30 amiodarone AdvReac Intermediate Unknown Verified 04/11/24 15:30 [facility] ED PFSH: Medical History Dyslipidemia Subdural hematoma BPH (benign prostatic hyperplasia) Lower urinary tract symptoms (LUTS) Arthritis Chronic migraine Chronic kidney disease History of TIA (transient ischemic attack) ASHD (arteriosclerotic heart disease) CHF (congestive heart failure) HTN (hypertension) Surgical History Hx of CABG H/O craniotomy Previous back surgery S/P knee replacement S/P shoulder surgery S/P carpal tunnel release Family History Mother , AT AGE 76 BRAIN ANEURYSM No problems noted. Father , AT AGE 84 GUIDANCE SERVICES COORDINATOR,HEART DISEASE Cancer PROSTATE CAD (coronary artery disease) Social History Smoking and tobacco/nicotine status: former use of tobacco/nicotine Alcohol intake: unknown Substance/Drug Use: unknown Adopted: No Caregiver/support person: No Lives independently: Yes Marital status: / Current occupational status: retired Current gender identity: Male Physical Exam Const: COMMON NORMALS: no acute distress, patient oriented x3 and alert HENMT: COMMON NORMALS: normocephalic and atraumatic HEAD & SCALP: normocephalic and atraumatic Eye: COMMON NORMALS: Equal, round and reactive pupils present, EOMs intact bilaterally and no scleral icterus PUPIL: Yes Equal, round and reactive pupils present Resp: EFFORT & INSPECTION: Yes able to speak in complete sentences, Yes tachypneic and Yes audible wheezes AUSCULTATION: crackles and wheezes Cardio: COMMON NORMALS: No murmurs present (Cardio) RATE: tachycardic RHYTHM: abnormal rhythm irregularly irregular OTHER: 1+ pitting edema of the bilateral feet and legs to the level of the knees. GI: COMMON NORMALS: Normal to inspection, nondistended, normoactive bowel sounds present, Soft to palpation and non-tender PALPATION: Yes Soft to palpation Neuro: COMMON NORMALS: patient oriented x3 SENSORIUM/ORIENTATION: Yes alert Skin: COMMON NORMALS: no rashes or lesions noted GENERAL SKIN EXAM: no rashes or lesions noted Course Vital Signs: Vital signs: Vital Signs Temperature 97.9 F 06/15/24 05:19 Pulse Rate 97 06/15/24 05:19 Respiratory Rate 18 06/15/24 05:19 Blood Pressure 138/87 06/15/24 05:19 Pulse Oximetry 96 06/15/24 05:19 Oxygen Delivery Me thod Nasal Cannula 06/15/24 05:19 Oxygen Flow Rate 2 06/15/24 05:19 MDM - SOB/Dyspnea Medical Decision Making Upon reexamination, is in the room and adds further history that he has been experiencing profound shortness of breath over the last few days. She states that he is up 6 pounds water weight and that he was so profoundly orthopneic that he seemed to lose consciousness when he laid flat for just 1 second on the bed. She seems to imply that his level of orthopnea is significantly worse than usual. He was given 1 mg of Bumex in the emergency department and will be admitted to the hospital service for further diuresis and observation. He is agreeable to the plan. Lab Data 06/14/24 21:45 06/14/24 21:45 Labs/Radiology: Radiology Impressions Chest X-Ray 06/14/24 21:32 IMPRESSION: Bibasilar atelectasis. Pelvis X-Ray 06/14/24 23:35 IMPRESSION: No acute findings. Laboratory Results WBC 8.21 10^3/uL (3.29-11.43) 06/14/24 21:45 RBC 3.90 10^6/uL (3.85-5.65) 06/14/24 21:45 Hgb 12.60 g/dL (11.27-16.99) 06/14/24 21:45 Hct 41.3 % (37-53) 06/14/24 21:45 MCV 105.9 fl (82-101) H 06/14/24 21:45 MCH 32.3 pg (27-33) 06/14/24 21:45 MCHC 30.5 g/dL (30-55) 06/14/24 21:45 RDW 12.7 % (12.1-15.1) 06/14/24 21:45 Plt Count 126 10^3/cmm (157-399) L 06/14/24 21:45 MPV 11.3 fL (7.4-10.4) H 06/14/24 21:45 Neut % (Auto) 67.1 % 06/14/24 21:45 Lymph % (Auto) 20.2 % 06/14/24 21:45 [place] % (Auto) 10.1 % 06/14/24 21:45 Eos % (Auto) 1.8 % 06/14/24 21:45 Baso % (Auto) 0.4 % 06/14/24 21:45 Neut # (Auto) 5.51 10^3/uL (1.8-7.7) 06/14/24 21:45 Lymph # (Auto) 1.7 10^3/uL (0.8-4.8) 06/14/24 21:45 [place] # (Auto) 0.8 10^3/uL (0.2-0.9) 06/14/24 21:45 Eos # (Auto) 0.2 10^3/uL (0.0-0.8) 06/14/24 21:45 Baso # (Auto) 0.0 10^3/uL (0.0-0.1) 06/14/24 21:45 Nucleated RBC % (auto) 0 % 06/14/24 21:45 Nucleated RBCs # 0.0 /100WBC 06/14/24 21:45 PT 12.60 SECONDS (12.1-14.9) 06/14/24 21:45 INR 0.88 (0.8-1.2) 06/14/24 21:45 Sodium 141 mmol/L (136-145) 06/14/24 21:45 Potassium 5.9 mmol/L (3.5-5.1) H 06/14/24 21:45 Chloride 96 mmol/L (98-107) L 06/14/24 21:45 Carbon Dioxide 37 mmol/L (22-29) H 06/14/24 21:45 Anion Gap 13.9 (5-19) 06/14/24 21:45 BUN 19 mg/dL (8-23) 06/14/24 21:45 Creatinine 1.1 mg/dL (0.7-1.2) 06/14/24 21:45 GFR Calculation Not Reportable 06/14/24 21:45 Glucose 178 mg/dL (65-115) H 06/14/24 21:45 Calculated Osmolality 299 mOsm/kg (285-295) H 06/14/24 21:45 Lactic Acid 1.5 mmol/L (0.5-2.2) 06/14/24 21:45 Calcium 9.2 mg/dL (8.5-10.5) 06/14/24 21:45 Magnesium 2.3 mg/dL (1.7-2.3) 06/14/24 21:45 Total Bilirubin 0.5 mg/dL (0.15-1.2) 06/14/24 21:45 AST 42 U/L (0-40) H 06/14/24 21:45 ALT 26 U/L (0-41) 06/14/24 21:45 Alkaline Phosphatase 148 U/L (40-130) H 06/14/24 21:45 Troponin T Baseline 83 ng/L (0-15) H 06/14/24 21:45 Troponin T 120 Minute 80.38 ng/L (0-15) H 06/14/24 23:39 Delta Troponin T -2.62 ABS# (0-10) L 06/14/24 23:39 NT-Pro-B Natriuret Pep 3257 pg/mL (0-450) H 06/14/24 21:45 Total Protein 7.0 g/dL (6.6-8.7) 06/14/24 21:45 Albumin 4.1 g/dL (3.5-5.2) 06/14/24 21:45 Globulin 2.9 g/dL (1.3-4.6) 06/14/24 21:45 Influenza A (PCR) Negative (Negative) 06/14/24 21:37 Influenza Type B (PCR) Negative (Negative) 06/14/24 21:37 RSV (PCR) Negative (Negative) 06/14/24 21:37 SARS-CoV-2 (PCR) Negative (Negative) 06/14/24 21:37 All radiology interpretation(s) finalized by discharge EKG Data EKG 1: Computer Generated Interpretation: Time?2122?atrial fibrillation with RVR, rate of 111, significant motion induced baseline artifact but no obvious ST segment elevation or depression or T wave inversions. QTc = 394 Discharge Plan Discharge Patient Disposition: Admitted As Inpatient Admit Provider: Link Claire Condition: Stable Coding Level of Care Code ED Milling Machine Tender for Chg Fwderian
[2024-06-14 22:06] LABS: Basophils % 0.4 %; Eosinophils # 0.2 10^3/uL (0.0-0.8); Eosinophils % 1.8 %; Hematocrit 41.3 % (37-53); Lymphocytes # 1.7 10^3/uL (0.8-4.8); Lymphocytes % 20.2 %; Mean Corpuscular HGB Conc 30.5 g/dL (30-55); Mean Corpuscular Hemoglobin 32.3 pg (27-33); Mean Corpuscular Volume 105.9 fl (82-101); Mean Platelet Volume 11.3 fL (7.4-10.4); Monocytes # 0.8 10^3/uL (0.2-0.9); Monocytes % 10.1 %; Neutrophils # 5.51 10^3/uL (1.8-7.7); Neutrophils % 67.1 %; Nucleated Red Blood Cells % 0 %; Platelet Count 126 10^3/cmm (157-399); Red Cell Distribution Width 12.7 % (12.1-15.1); White Blood Count 8.21 10^3/uL (3.29-11.43)
[2024-06-14 22:12] LABS: INR 0.88 (0.8-1.2)
[2024-06-14 22:27] LABS: Troponin(5th) Baseline 83 ng/L (0-15)
[2024-06-14 22:28] LABS: Lactic Sepsis W/Reflex 1.5 mmol/L (0.5-2.2)
[2024-06-14 22:37] LABS: Influenza A NEGATIVE (Negative); Influenza B NEGATIVE (Negative); Respiratory Syncytial Virus Ce NEGATIVE (Negative); SARS-CoV-2 PCR NEGATIVE (Negative)
[2024-06-14 22:38] LABS: Alanine Aminotransferase 26 U/L (0-41); Albumin Level 4.1 g/dL (3.5-5.2); Alkaline Phosphatase 148 U/L (40-130); Anion Gap 13.9 (5-19); Aspartate Amino Transferase 42 U/L (0-40); Blood Urea Nitrogen 19 mg/dL (8-23); Calcium 9.2 mg/dL (8.5-10.5); Carbon Dioxide 37 mmol/L (22-29); Chloride 96 mmol/L (98-107); Creatinine Clr Calc Pharmacy 74.6541; Globulin 2.9 g/dL (1.3-4.6); Glucose 178 mg/dL (65-115); Magnesium 2.3 mg/dL (1.7-2.3); NT Pro B Type Natriuretic Pept 3257 pg/mL (0-450); Osmolality Calculated 299 mOsm/kg (285-295); Potassium 5.9 mmol/L (3.5-5.1); Sodium 141 mmol/L (136-145); Total Bilirubin 0.5 mg/dL (0.15-1.2)
[2024-06-14] MEDS: bumetanide 0.25 mg/mL SDV 4 mL 1 MG IVP (23:34)
--- NOTE | 2024-06-14 23:35 | XRR_ITS ---
PROCEDURE INFORMATION: Exam: XR Pelvis Exam date and time: 06/14/2024 11:52 PM Age: 78 years old Clinical indication: Pelvic pain TECHNIQUE: Imaging protocol: Radiologic exam of the pelvis. Views: 1 or 2 view. COMPARISON: CT abdomen pelvis wo con [id number] 07/03/2023 3:42 PM FINDINGS: Bones/joints: Unremarkable. No acute fracture. Soft tissues: Unremarkable. XR/XR pelvis 1-2V* 27000 IMPRESSION: No acute findings.
[2024-06-14] MEDS: morphine 4 mg/mL SDV 1 mL IVP (23:54)
[2024-06-14 23:59] LABS: Troponin 5 2HR 80.38 ng/L (0-15); Troponin 5 2HR Delta -2.62 ABS# (0-10)
[2024-06-15] VITALS (20 sets, daily range): BP systolic 91–142; BP diastolic 41–87; PULSE 84–115; RESP 16–24; TEMP 36.4–36.8; O2SAT 92–100; BMI 36.5
--- NOTE | 2024-06-15 00:02 | USCV_ITS ---
Dajuan Presley Age: 78 Gender: M : 1945 Exam Date: 06/15/2024 04:36 Ordering Phys: Link Claire MD Technologist: MAYI Exam Location: [facility] [place] Indication: SOB, CHF, history of CAD, CABG, CKD, TIA, Afib, BP: 142 / 84 HR: 90 Rhythm: Sinus Technical Quality: Adequate MEASUREMENTS (Male / Female) Normal Values 2D ECHO LV Diastolic Diameter PLAX 3.6 cm 4.2 - 5.9 / 3.9 - 5.3 cm IVS Diastolic Thickness 2.1 cm 0.6 - 1.0 / 0.6 - 0.9 cm IVS Systolic Thickness 2.4 cm LVPW Diastolic Thickness 1.6 cm 0.6 - 1.0 / 0.6 - 0.9 cm LVPW Systolic Thickness 1.9 cm LVOT Diameter 2.0 cm LV Ejection Fraction 2D Teich 53.3 % LV Ejection Fraction MOD 4C 45.8 % LV Ejection Fraction MOD 2C 60.3 % LV Ejection Fraction 2C AL 62.5 % LA Diameter 4.5 cm Aorta at Sinotubular Diameter 3.4 cm IVC Diameter 1.8 cm M-MODE LA Ao Ratio MM 1.3 AV Cusp Separation MM 2.1 cm DOPPLER AV Peak Velocity 115.0 cm/s AV Area Cont Eq vti 2.5 cm squared AV Area Cont Eq pk 2.6 cm squared MV Peak Velocity 89.0 cm/s MV Area PHT 3.7 cm squared Mitral E to A Ratio 234.0 TV Peak Velocity 325.3 cm/s TR Peak Velocity 337.0 cm/s TR Peak Gradient 45.4 mmHg TV Peak E Velocity 53.0 cm/s PV Peak Velocity 71.0 cm/s FINDINGS Left Ventricle Normal left ventricular size and systolic function, EF 60%.. Abnormal septal motion consistent with conduction abnormality. Grade I/IV diastolic dysfunction (abnormal relaxation filling pattern), normal to mildly elevated filling pressures. Right Ventricle Normal RV size and ejection fraction. Dense horizontal structures in the RV apex suggesting moderator band Right Atrium Mildly increased right atrial size. Left Atrium Mildly increased left atrial size. Mitral Valve No gross abnormalities noted Aortic Valve Minimal thickened aortic valve. Trace aortic valve regurgitation. Tricuspid Valve Mild to moderate tricuspid valve regurgitation. Estimated pulmonary artery peak systolic pressure 48 mmHg Pulmonic Valve Trace pulmonary valve regurgitation. Pericardium No pericardial effusion. Aorta Normal aortic annulus size. IVC Normal inferior vena cava. CONCLUSIONS Normal left ventricular size and systolic function, EF 60%.. Abnormal septal motion consistent with conduction abnormality. Grade I/IV diastolic dysfunction (abnormal relaxation filling pattern), normal to mildly elevated filling pressures. Mild biatrial enlargement Minimal thickened aortic valve. Trace aortic valve regurgitation. Mild to moderate tricuspid valve regurgitation. Mild pulmonary hypertension. Estimated pulmonary artery peak systolic pressure 48 mmHg. Trace pulmonary valve regurgitation. There is no pericardial effusion. Compared to the study from 06/24/2023, there may not be significant change. Because of the differences in technical quality, exact comparison is difficult. Dr Nandini Zimmerman MD FACC (Electronically Signed) Final Date: 15 June 2024 09:15 S
--- NOTE | 2024-06-15 00:02 | PM.HP ---
Providers/Chief Complaint Primary Care Provider: Igor Aguilera Chief Complaint: SOB History of Present Illness Dajuan Presley is a 78 year old male with a past medical history of CHF, CAD, hypertension, CKD, TIA, history of subdural hematoma, history of cardioversion for atrial fibrillation, history of CABG who presents [facility] for shortness of breath. Patient reports increased shortness of breath with exertion, progressing to shortness of breath at rest, increased lower extremity edema, does report orthopnea, paroxysmal nocturnal dyspnea, no chest pain, no palpitations, no fevers, no cough, he is taking Lasix at home Review of Systems Card: Denies: chest pain Resp: Reports: dyspnea GI: Denies: abdominal pain Medications/Allergies Home Medications ?Medication ?Instructions ?Recorded ?Confirmed ?Last Taken ?Type tamsulosin 0.4 mg capsule 0.4 mg PO BEDTIME 05/04/19 04/11/24 06/23/23 History oxycodone 15 mg tablet 15 mg PO Q6H PRN Pain 08/03/20 04/11/24 06/23/23 History nitroglycerin 0.4 mg sublingual 0.4 mg sublingual Q5M PRN chest 11/06/21 04/11/24 Unknown Rx tablet (Nitrostat) pain #25 tabs omeprazole 20 mg capsule,delayed 20 mg PO QAM 12/01/22 04/11/24 06/24/23 History release cholecalciferol (vitamin D3) 25 25 mcg PO DAILY 02/01/23 04/11/24 02/01/23 History mcg (1,000 unit) tablet (Vitamin D3) vit C 250 mg-vit E 90 mg-zinc 40 1 tab PO BID 02/01/23 04/11/24 06/24/23 History mg-copper 1 [id number] capsule (PreserVision AREDS-2) duloxetine 30 mg capsule,delayed 30 mg PO QAM 04/09/23 04/11/24 06/24/23 History release acetaminophen 650 mg 650 mg PO Q6H PRN Pain 06/24/23 04/11/24 Unknown History tablet,extended release albuterol sulfate 2.5 mg/3 mL 2.5 mg inhalation Q4H PRN 06/24/23 04/11/24 Unknown History (0.083 %) solution for nebulization Shortness Of Breath aspirin 81 mg tablet,delayed 81 mg PO QAM 06/24/23 04/11/24 06/24/23 History release bupropion HCl 300 mg 24 hr tablet, 300 mg PO QAM 06/24/23 04/11/24 06/24/23 History extended release ipratropium 0.5 mg-albuterol 3 mg 3 ml inhalation Q6H PRN Shortness 06/24/23 03/31/24 Unknown History (2.5 mg base)/3 mL nebulization Of Breath soln ketoconazole 2 % shampoo See Rx Instructions .Route .COMPLEX 06/24/23 03/31/24 Unknown History magnesium oxide 400 mg PO QAM 06/24/23 04/11/24 06/24/23 History ondansetron 4 mg disintegrating 4 mg PO Q8H PRN Nausea And Vomiting 06/24/23 03/31/24 Unknown History tablet rizatriptan 10 mg disintegrating See Rx Instructions .Route .COMPLEX 06/24/23 04/11/24 Unknown History tablet zolpidem 6.25 mg tablet,extended 6.25 mg PO BEDTIME 06/24/23 04/11/24 Unknown History release,multiphase (Ambien CR) propafenone 150 mg tablet 150 mg PO TID #90 tabs 07/03/23 04/11/24 Unknown Rx clonidine HCl 0.1 mg tablet 0.05 mg PO BID 10/08/23 04/11/24 Unknown History potassium chloride 10 mEq 60 meq PO BID 10/08/23 04/11/24 Unknown History capsule,extended release albuterol sulfate 90 mcg/actuation 2 inh inhalation QID 02/15/24 04/11/24 Unknown History breath activated powder inhaler,sensor furosemide 40 mg tablet See Rx Instructions .Route .COMPLEX 02/15/24 04/11/24 Unknown History budesonide 160 mcg-glycopyr 9 2 inh inhalation BID 04/11/24 04/11/24 Unknown History mcg-formot 4.8 mcg/actuation HFA inhaler (Breztri Aerosphere) metoprolol tartrate 37.5 mg tablet 37.5 mg PO BID #90 tabs 04/11/24 04/11/24 Unknown Rx Allergies Allergy/AdvReac Type Severity Reaction Status Date / Time cefdinir (From Omnicef) Allergy Intermediate ADR-Vomitin Verified 04/11/24 15:30 g pentazocine (From Talwin) Allergy Unknown Unknown Verified 04/11/24 15:30 amiodarone AdvReac Intermediate Unknown Verified 04/11/24 15:30 PFSH Acute PFSH: Medical History Dyslipidemia Subdural hematoma BPH (benign prostatic hyperplasia) Lower urinary tract symptoms (LUTS) Arthritis Chronic migraine Chronic kidney disease History of TIA (transient ischemic attack) ASHD (arteriosclerotic heart disease) CHF (congestive heart failure) HTN (hypertension) Surgical History Hx of CABG H/O craniotomy Previous back surgery S/P knee replacement S/P shoulder surgery S/P carpal tunnel release Family History Mother , AT AGE 76 BRAIN ANEURYSM No problems noted. Father , AT AGE 84 [employer]BON CAPTURE POWER PLANT ENGINEER,HEART DISEASE Cancer PROSTATE CAD (coronary artery disease) Social History Smoking and tobacco/nicotine status: former use of tobacco/nicotine Alcohol intake: unknown Substance/Drug Use: unknown Adopted: No Caregiver/support person: No Lives independently: Yes Marital status: / Current occupational status: retired Current gender identity: Male Vitals/I&O/Wt Last Vital Signs Temp 98.4 F 06/14/24 21:22 Pulse 88 06/14/24 22:30 Resp 24 H 06/14/24 23:54 BP 112/83 06/14/24 22:30 Pulse Ox 95 06/14/24 23:54 O2 Del Method Nasal Cannula 06/14/24 21:30 O2 Flow Rate 2 06/14/24 21:30 Weight last 48 hrs Weight 122.47 kg Physical Exam Const: COMMON NORMALS: no acute distress and patient oriented x3 Eye: COMMON NORMALS: Equal, round and reactive pupils present Resp: COMMON NORMALS: normal respiratory effort, No retractions, No use of accessory muscles and clear to auscultation bilaterally AUSCULTATION: crackles and wheezes Cardio: COMMON NORMALS: no JVD, regular rate, regular rhythm, S1 normal heart sound present and S2 normal heart sound present RATE: regular rate RHYTHM: regular rhythm HEART SOUNDS: S1 normal heart sound present and S2 normal heart sound present GI: COMMON NORMALS: Normal to inspection, nondistended, normoactive bowel sounds present, Soft to palpation and non-tender Extremity: NARRATIVE EXTREMITY EXAM: 2+ edema Neuro: COMMON NORMALS: patient oriented x3, CN's II-XII intact bilaterally and moves all extremities Psych: COMMON NORMALS: mental status grossly normal Data 06/14/24 21:45 06/14/24 21:45 Micro: Microbiology 06/14/24 21:45 Blood Culture - Preliminary Blood SPECIMEN COLLECTED 06/14/24 21:40 Blood Culture - Preliminary Blood SPECIMEN COLLECTED A&P Assessment and plan (1) Acute on chronic diastolic heart failure: (2) Atrial fibrillation: Qualifiers: Atrial fibrillation type: unspecified Qualified Code(s): I48.91 - Unspecified atrial fibrillation (3) Hyperkalemia: Plan Acute diastolic CHF exacerbation - Anasarca, fluid overload, elevated BNP Plan - Bumex 1 mg IV push every 12 hours - Fluid restrictions of 1000 cc - Monitor creatinine monitor potassium - Cardiac echo Atrial fibrillation - No anticoagulation due to history of intracranial hemorrhage - Continue propafenone - Continue metoprolol - Continue aspirin Chronic pain, continue home oxycodone Hyperkalemia, receiving Bumex, Kayexalate, telemetric monitoring Full code Lovenox for DVT prophylaxis PDMP PDMP Reviewed: Last Reviewed 06/14/24 23:58 by Link Claire MD Attestations Medical Necessity Statement*: Patient requires hospitalization for CHF exacerbation, inpatient, greater than 2 midnights Diagnoses Acute on chronic diastolic heart failure I50.33 Atrial fibrillation, unspecified type I48.91 Atrial fibrillation type: unspecified Hyperkalemia E87.5
[2024-06-15] MEDS: sodium polystyrene sulfonate 15 gm/60 mL Btl PO (00:27)
[2024-06-15] MEDS: famotidine 20 mg/2 mL INJ IVP ×2 (01:19→10:53)
[2024-06-15] MEDS: enoxaparin 40 mg/0.4 mL Syringe SUBCUT (01:19)
[2024-06-15 04:09] LABS: Troponin 5 6HR 89.79 ng/L (0-15); Troponin 5 6HR Delta 6.79 ng/L (0-12)
[2024-06-15] MEDS: buPROPion XL (24 HR) 300 mg Tablet PO (05:32)
[2024-06-15] MEDS: aspirin 81 mg EC Tablet PO (05:32)
[2024-06-15] MEDS: duloxetine 30 mg Capsule PO (05:32)
[2024-06-15] MEDS: magnesium oxide 400 mg tablet PO (05:32)
[2024-06-15 06:00] LABS: Bilirubin Urine Negative (Negative); Blood Urine Negative (Negative); Glucose Urine UA Negative (Normal); Ketones Urine Negative (Negative); Leukocyte Esterase Urine Negative (Negative); Nitrate Urine Negative (Negative); Protein Urine Negative (Negative); Specific Gravity, Urine 1.009 (1.005-1.030); Urine Appearance Clear (CLEAR); Urine Color Yellow (Yellow); Urobilinogen Urine 0.2 mg/dL (Negative)
[2024-06-15 06:04] LABS: Add Urine Microscopic? YES; Bacteria Urine None Seen /hpf; RBC Urine 0-2 /hpf (0-2); Squamous Epithelial Cell Urine 0-5 /hpf (0-5); WBC Urine 0-5 /hpf (0-5)
[2024-06-15 06:13] LABS: Basophils # 0.1 10^3/uL (0.0-0.1); Basophils % 0.5 %; Eosinophils # 0.1 10^3/uL (0.0-0.8); Eosinophils % 0.7 %; Lymphocytes # 2.2 10^3/uL (0.8-4.8); Mean Corpuscular HGB Conc 30.5 g/dL (30-55); Mean Corpuscular Hemoglobin 32.7 pg (27-33); Mean Corpuscular Volume 107.2 fl (82-101); Mean Platelet Volume 10.9 fL (7.4-10.4); Monocytes # 1.1 10^3/uL (0.2-0.9); Monocytes % 12.1 %; Neutrophils # 5.68 10^3/uL (1.8-7.7); Neutrophils % 62.4 %; Nucleated Red Blood Cells % 0 %; Platelet Count 125 10^3/cmm (157-399); Red Blood Count 3.73 10^6/uL (3.85-5.65); Red Cell Distribution Width 12.7 % (12.1-15.1)
[2024-06-15 06:35] LABS: NT Pro B Type Natriuretic Pept 3654 pg/mL (0-450)
[2024-06-15 06:52] LABS: Thyroid Stimulating Hormone 4.03 uIU/mL (0.27-4.20)
[2024-06-15 07:28] LABS: Glucose Point of Care 125 mg/dL (70-110)
[2024-06-15] MEDS: bumetanide 0.25 mg/mL SDV 4 mL 1 MG IVP ×2 (08:02→20:44)
[2024-06-15] MEDS: metoprolol tartrate 25 mg Tablet 37.5 MG PO ×2 (08:07→17:12)
[2024-06-15] MEDS: propafenone 150 mg Tablet PO ×3 (08:10→20:44)
[2024-06-15 08:43] LABS: Anion Gap 13.5 (5-19); Blood Urea Nitrogen 19 mg/dL (8-23); Calcium 9.2 mg/dL (8.5-10.5); Carbon Dioxide 40 mmol/L (22-29); Chloride 93 mmol/L (98-107); Creatinine Clr Calc Pharmacy 69.0862; Glucose 113 mg/dL (65-115); Osmolality Calculated 297 mOsm/kg (285-295); Potassium 4.5 mmol/L (3.5-5.1); Sodium 142 mmol/L (136-145)
--- NOTE | 2024-06-15 09:15 | PC.CHAP ---
Pastoral Care Encounter/Spiritual Assessment Type of Contact [] Declined planer mill grader visit [] Patient/Family/Request visit [] Outpatient visit [] Follow-up visit [] Physician referral [] Code/Alert [x] Routine visit [] Staff referral [] Actively dying [] Patient sleeping [] Family support [] [] Out of room [] Palliative care [] [] Receiving care in room [] Pre-surgical visit [] Trauma [] Long length of stay [] ICU visit [] Other: Relational/Emotional Strength [x] Patient feels connected with others/family/visitors/staff [] Distress [] Loneliness/isolation [] Abandonment Spirituality of Patient [x] Person of Kori [] Attends Hinduism of their Kori [x] Believes in Prayer [] Reads Bible or Mormon materials [] There are Spiritual issues to be addressed Project Landscape Architect Interventions [x] Prayer [x] Active listening [] Non-anxious presence [x] Spiritual/emotional support [] Crisis/trauma care [] Spiritual counseling [] Bereavement support [] Provided bereavement packet [] Provided Bible/devotional materials [] Provided toy/stuffed animal, coloring book to patient or family member [] Provided Communion [] Anointing/[place] [] Salvation [x] Completed spiritual assessment [] Other: Impact on Illness or Injury [] Angry [] Fearful [] Anxious [] Often cries [] Exhaustion [] Unable to work [] Unable to attend latter day [] Unable to walk/stand [] Unable to read [] Unable to drive [] Unable to eat/drink [] Unable to sleep [] Unable to be with family [] Patient intubated [] Other: Summary Time spent with patient 5 min
[2024-06-15 09:22] LABS: ABG PH Result 7.35 (7.35-7.45); Arterial Blood Gas Hematocrit 36.9 % (42-52); Base Excess ABG 16.8 mmol/L (-2.0-2.0); Blood Gas Allen Test Pos; Blood Gas Sample Type Arterial; Carboxyhemoglobin 1.6 %THgb (0.4-20.1); HCO3 ABG 46.4 mmol/L (22-26); HGB O2 Sat 92.9 % (95-100); Ionized Calcium Level - ABG 1.2 mmol/L (1.1-1.4); Methemoglobin 0.9 % (0.4-1.5); Oxygen Saturation ABG 95.2; PO2 ABG 75.9 mmHg (80.0-100.0); Potassium Level - ABG 3.9 mmol/L (3.5-5.0)
[2024-06-15 09:23] LABS: Blood Gas Operator Identificat MONRO; Blood Gas Sample Site Radial, left; Oxygen Device NC; PO2 FiO2 Ratio Arterial Blood 271
[2024-06-15 09:24] LABS: ABG PCO2 84.9 mmHg (35-45)
[2024-06-15] MEDS: albuterol 2.5 mg/3 mL Neb INHALATION (09:43)
[2024-06-15] MEDS: oxyCODONE 5 mg IR Tab/Cap 15 MG PO ×2 (10:53→18:21)
--- NOTE | 2024-06-15 11:28 | P.PN_ITS ---
Subjective 2 Subjective: Seen him at bedside this morning. Seems drowsy, awakens to verbal stimuli. Bedside nurse informed that patient has been hallucinating this morning. Denies any complaint of chest pain, palpitations, nausea/vomiting. Family at bedside, explained about the plan of care, family understands and agrees. Medications: Reviewed: Yes Vitals/I&O/Wt Last Vital Signs Temp 98.3 F 06/15/24 08:05 Pulse 87 06/15/24 10:42 Resp 22 H 06/15/24 09:43 BP 119/70 06/15/24 08:05 Pulse Ox 97 06/15/24 10:42 O2 Del Method Nasal Cannula 06/15/24 09:43 O2 Flow Rate 2 06/15/24 09:43 FiO2 28 06/15/24 10:42 06/14/24 06/15/24 06/15/24 22:59 06:59 14:59 Intake Total 100 / 100 120 / 120 Balance 100 / 100 120 / 120 Weight last 48 hrs Weight 124.783 kg Weight 125.645 kg Weight 122.47 kg Physical Exam 2 Narrative: He is drowsy, awakens to verbal stimuli and oriented x 3 chest clear to auscultation bilaterally Cardiovascular normal heart sounds, no murmurs Abdomen soft, nondistended nontender, normal bowel sounds Extremities 2+ pitting edema present bilateral lower extremity Urinary Catheter Management: Brumfield: Cath Placed During This Visit: yes Urinary Catheter Date of Insertion: 06/15/24 Urinary Catheter Time of Insertion: 06:05 Data 06/15/24 05:57 06/15/24 05:57 Micro: Microbiology 06/14/24 21:45 Blood Culture - Preliminary Blood SPECIMEN COLLECTED 06/14/24 21:40 Blood Culture - Preliminary Blood SPECIMEN COLLECTED A&P Assessment and plan (1) Acute on chronic diastolic heart failure: (2) Atrial fibrillation: Qualifiers: Atrial fibrillation type: unspecified Qualified Code(s): I48.91 - Unspecified atrial fibrillation (3) Hyperkalemia: Plan Dajuan Presley is a 78 year old male with a past medical history of CHF, CAD, hypertension, CKD, TIA, history of subdural hematoma, history of cardioversion for atrial fibrillation, history of CABG who presents [facility] for shortness of breath. Acute diastolic CHF exacerbation - Anasarca, fluid overload, elevated BNP Plan - Bumex 1 mg IV push every 12 hours - Fluid restrictions of 1000 cc - Monitor creatinine monitor potassium - Cardiac echo Atrial fibrillation - No anticoagulation due to history of intracranial hemorrhage - Continue propafenone - Continue metoprolol - Continue aspirin Chronic pain, continue home oxycodone Hyperkalemia, receiving Bumex, Kayexalate, telemetric monitoring Full code Lovenox for DVT prophylaxis 06/15/24 #SOB-likely secondary to acute hypercarbic respiratory failure with PCO2 of 84 on ABG this morning. Less likely cardiac origin. Chest x-ray negative for fluid overload/pneumonia. BNP 3654, hence we will continue IV Bumex 1 mg every 12 hours. 3 sets of troponins 83, 80, 89, plateaued. Less likely ACS. Follow-up echo Will start on BiPAP IV Ativan 1 mg every 8 hours as needed for agitation Continue telemetry monitoring Will repeat ABG at 6 PM #Atrial fibrillation-rate controlled Will continue p.o. metoprolol and aspirin ECHO CONCLUSIONS Normal left ventricular size and systolic function, EF 60%.. Abnormal septal motion consistent with conduction abnormality. Grade I/IV diastolic dysfunction (abnormal relaxation filling pattern), normal to mildly elevated filling pressures. Mild biatrial enlargement Minimal thickened aortic valve. Trace aortic valve regurgitation. Mild to moderate tricuspid valve regurgitation. Mild pulmonary hypertension. Estimated pulmonary artery peak systolic pressure 48 mmHg. Trace pulmonary valve regurgitation. There is no pericardial effusion. #Agitation- likely secondary to hypercarbia will do IV ativan 1mg q8h prn. #TONY-patient does not use CPAP machine at home. Family, daughter at bedside who reports patient denies using CPAP although diagnosed with obstructive sleep apnea. Family counseled and educated about benefits of CPAP. Family to reinforce patient about use of CPAP at home. Family counseled and explained about diagnosis and plan of care, seems to understand and agrees with the plan. PDMP PDMP Reviewed: Not Reviewed Attestations 2 Medical Necessity Statement*: Patient requires hospitalization for CHF exacerbation/acute hypercarbic respiratory chandler;ure, inpatient, greater than 2 midnights Time Spent in Patient Care: 25minutes Coding Level of Care Code Acute Code for Chg Fwd Diagnoses Acute on chronic diastolic heart failure I50.33 Atrial fibrillation, unspecified type I48.91 Atrial fibrillation type: unspecified Hyperkalemia E87.5 Time Spent (min) 25
[2024-06-15] MEDS: LORazepam 2 mg/mL INJ 1 mL 1 MG IVP (11:40)
--- NOTE | 2024-06-15 12:36 | PC.NURSE ---
0730 - RN reviews chart with few concerns, according to telemetry, it appears pt has been in-and-out of a-fib RVR. 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 RN assesses patient quickly. Pt appears to be grabbing at things that are not in the room, speaking in sentences that are not coherent. VS stable, with oxygen saturation of 97%/2L/NC. RN speaks with [employer] students about quickly administering morning medications, due to heart rate of 110 and K of 5.9. 0800 - RN notifies Dr. Benavides and obtains ABG and other follow-up labs. CO2 noted to be elevated. BiPap placed on patient as he becomes more and more drowsy, but still responsive to verbal stimuli. Family at bedside. Pt becomes agitated with mask, attempting to take it off with his eyes closed. Unable to be redirected. Ativan administered and effective. 1244 - Pt resting quietly with eyes closed. Pt in afib, with controlled rate of 90.
[2024-06-15 18:24] LABS: ABG PH Result 7.43 (7.35-7.45); Arterial Blood Gas Hematocrit 36.4 % (42-52); Base Excess ABG 20.6 mmol/L (-2.0-2.0); Blood Gas Allen Test Pos; Blood Gas Sample Type Arterial; Carboxyhemoglobin 1.9 %THgb (0.4-20.1); HCO3 ABG 48.8 mmol/L (22-26); HGB O2 Sat 91.1 % (95-100); Ionized Calcium Level - ABG 1.2 mmol/L (1.1-1.4); Methemoglobin 0.7 % (0.4-1.5); Oxygen Saturation ABG 93.6; PO2 ABG 63.7 mmHg (80.0-100.0); Potassium Level - ABG 3.7 mmol/L (3.5-5.0); Total Hemoglobin 11.9 g/dL (14-18)
[2024-06-15 18:25] LABS: ABG PCO2 74.3 mmHg (35-45); Alveolar-Arterial Oxygen Gradi 6.1 mmHg (5-10); Blood Gas Operator Identificat MONRO; Blood Gas Sample Site Brachial, left; Oxygen Device BIPAP; PO2 FiO2 Ratio Arterial Blood 227
[2024-06-15] MEDS: tamsulosin 0.4 mg Capsule PO (20:44)
[2024-06-16] VITALS (12 sets, daily range): BP systolic 115–132; BP diastolic 78–90; PULSE 83–108; RESP 13–25; TEMP 36.4–37; O2SAT 90–97
[2024-06-16] MEDS: enoxaparin 40 mg/0.4 mL Syringe SUBCUT (00:03)
[2024-06-16] MEDS: famotidine 20 mg/2 mL INJ IVP ×2 (00:03→11:20)
[2024-06-16 06:14] LABS: Basophils % 0.5 %; Eosinophils # 0.2 10^3/uL (0.0-0.8); Eosinophils % 2.7 %; Hematocrit 38.3 % (37-53); Lymphocytes # 2.1 10^3/uL (0.8-4.8); Lymphocytes % 25.8 %; Mean Corpuscular HGB Conc 30.8 g/dL (30-55); Mean Corpuscular Hemoglobin 32.8 pg (27-33); Mean Corpuscular Volume 106.4 fl (82-101); Mean Platelet Volume 11.7 fL (7.4-10.4); Monocytes # 0.9 10^3/uL (0.2-0.9); Monocytes % 11.1 %; Neutrophils # 4.95 10^3/uL (1.8-7.7); Neutrophils % 59.5 %; Nucleated Red Blood Cells % 0 %; Platelet Count 127 10^3/cmm (157-399)
[2024-06-16] MEDS: duloxetine 30 mg Capsule PO (06:26)
[2024-06-16] MEDS: buPROPion XL (24 HR) 300 mg Tablet PO (06:26)
[2024-06-16] MEDS: magnesium oxide 400 mg tablet PO (06:26)
[2024-06-16] MEDS: aspirin 81 mg EC Tablet PO (06:26)
[2024-06-16 06:28] LABS: Alanine Aminotransferase 19 U/L (0-41); Albumin Level 3.7 g/dL (3.5-5.2); Alkaline Phosphatase 111 U/L (40-130); Anion Gap 10.2 (5-19); Aspartate Amino Transferase 31 U/L (0-40); Blood Urea Nitrogen 18 mg/dL (8-23); Calcium 9.3 mg/dL (8.5-10.5); Chloride 90 mmol/L (98-107); Creatinine Clr Calc Pharmacy 63.5829; Globulin 3.2 g/dL (1.3-4.6); Glucose 95 mg/dL (65-115); Osmolality Calculated 294 mOsm/kg (285-295); Potassium 4.2 mmol/L (3.5-5.1); Sodium 141 mmol/L (136-145); Total Bilirubin 0.8 mg/dL (0.15-1.2); Total Protein 6.9 g/dL (6.6-8.7)
[2024-06-16 06:34] LABS: Carbon Dioxide 45 mmol/L (22-29)
--- NOTE | 2024-06-16 08:18 | ECG_ITS ---
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 Measurements Intervals [place] Rate: 113 P: 0 DC: 0 QRS: -36 QRSD: 131 T: 15 QT: 348 QTc: 478 Interpretive Statements ATRIAL FIBRILLATION WITH RAPID VENTRICULAR RESPONSE LEFT AXIS DEVIATION [QRS AXIS < -30] INTRAVENTRICULAR CONDUCTION DELAY [130+ ms QRS DURATION] Compared to ECG 06/14/2024 21:23:28 Left-axis deviation now present Indeterminate axis no longer present Baseline artifacts, need to repeat Electronically Signed On 06-17-2024 08:45:49 CDT by Nandini Zimmerman M.D. [email or web address]
[2024-06-16] MEDS: albuterol 2.5 mg/3 mL Neb INHALATION (08:41)
[2024-06-16] MEDS: propafenone 150 mg Tablet PO ×3 (10:08→20:09)
[2024-06-16] MEDS: metoprolol tartrate 25 mg Tablet 37.5 MG PO ×2 (10:08→17:20)
[2024-06-16] MEDS: bumetanide 0.25 mg/mL SDV 4 mL 1 MG IVP (10:09)
--- NOTE | 2024-06-16 12:35 | P.PN_ITS ---
Subjective 2 Subjective: Seen him at bedside this morning. Reports feeling better. Counseled and educated about using BiPAP machine regularly at home. Medications: Reviewed: Yes Vitals/I&O/Wt Last Vital Signs Temp 98.6 F 06/16/24 11:25 Pulse 97 06/16/24 11:25 Resp 14 06/16/24 11:25 BP 115/79 06/16/24 11:25 Pulse Ox 90 06/16/24 11:25 O2 Del Method BiPAP 06/16/24 11:25 O2 Flow Rate 2 06/15/24 09:43 FiO2 28 06/16/24 08:42 06/15/24 06/16/24 06/16/24 22:59 06:59 14:59 Intake Total 620 / 740 300 / 300 Output Total 1000 / 1000 650 / 1650 Balance -1000 / -880 -30 / -910 300 / 300 Weight last 48 hrs Weight 124.058 kg Weight 124.783 kg Weight 125.645 kg Weight 122.47 kg Physical Exam 2 Narrative: He is drowsy, awakens to verbal stimuli and oriented x 3 chest clear to auscultation bilaterally Cardiovascular normal heart sounds, no murmurs Abdomen soft, nondistended nontender, normal bowel sounds Extremities 2+ pitting edema present bilateral lower extremity Urinary Catheter Management: Brumfield: Cath Placed During This Visit: yes Reason for Continuing Indwelling Catheter: Not indwelling catheter Urinary Catheter Date of Insertion: 06/15/24 Urinary Catheter Time of Insertion: 06:05 Data 06/16/24 05:45 06/16/24 05:45 Micro: Microbiology 06/14/24 21:45 Blood Culture - Preliminary Blood NEGATIVE TO DATE 06/14/24 21:40 Blood Culture - Preliminary Blood NEGATIVE TO DATE A&P Assessment and plan (1) Acute on chronic diastolic heart failure: (2) Atrial fibrillation: Qualifiers: Atrial fibrillation type: unspecified Qualified Code(s): I48.91 - Unspecified atrial fibrillation (3) Hyperkalemia: Plan Dajuan Presley is a 78 year old male with a past medical history of CHF, CAD, hypertension, CKD, TIA, history of subdural hematoma, history of cardioversion for atrial fibrillation, history of CABG who presents [facility] for shortness of breath. Acute diastolic CHF exacerbation - Anasarca, fluid overload, elevated BNP Plan - Bumex 1 mg IV push every 12 hours - Fluid restrictions of 1000 cc - Monitor creatinine monitor potassium - Cardiac echo Atrial fibrillation - No anticoagulation due to history of intracranial hemorrhage - Continue propafenone - Continue metoprolol - Continue aspirin Chronic pain, continue home oxycodone Hyperkalemia, receiving Bumex, Kayexalate, telemetric monitoring Full code Lovenox for DVT prophylaxis 06/15/24 #SOB-likely secondary to acute hypercarbic respiratory failure with PCO2 of 84 on ABG this morning. Less likely cardiac origin. Chest x-ray negative for fluid overload/pneumonia. BNP 3654, hence we will continue IV Bumex 1 mg every 12 hours. 3 sets of troponins 83, 80, 89, plateaued. Less likely ACS. Follow-up echo Will start on BiPAP IV Ativan 1 mg every 8 hours as needed for agitation Continue telemetry monitoring Will repeat ABG at 6 PM #Atrial fibrillation-rate controlled Will continue p.o. metoprolol and aspirin ECHO CONCLUSIONS Normal left ventricular size and systolic function, EF 60%.. Abnormal septal motion consistent with conduction abnormality. Grade I/IV diastolic dysfunction (abnormal relaxation filling pattern), normal to mildly elevated filling pressures. Mild biatrial enlargement Minimal thickened aortic valve. Trace aortic valve regurgitation. Mild to moderate tricuspid valve regurgitation. Mild pulmonary hypertension. Estimated pulmonary artery peak systolic pressure 48 mmHg. Trace pulmonary valve regurgitation. There is no pericardial effusion. #Agitation- likely secondary to hypercarbia will do IV ativan 1mg q8h prn. #TONY-patient does not use CPAP machine at home. Family, daughter at bedside who reports patient denies using CPAP although diagnosed with obstructive sleep apnea. Family counseled and educated about benefits of CPAP. Family to reinforce patient about use of CPAP at home. Family counseled and explained about diagnosis and plan of care, seems to understand and agrees with the plan. 06/16/24 Patient doing well this morning. pCO2 improved to 74 on BiPAP. He would likely need long-term BiPAP for COPD and hypercarbic respiratory failure. Will follow- up case management for discharge planning. Anticipating discharge in a.m. with BiPAP. OLLIE, likely secondary to diuretics, creatinine 1.3. Will reduce IV Bumex to 2 mg daily. Continue to monitor. PDMP PDMP Reviewed: Not Reviewed Attestations 2 Medical Necessity Statement*: Patient requires hospitalization for CHF exacerbation/acute hypercarbic respiratory chandler;ure, inpatient, greater than 2 midnights Time Spent in Patient Care: 15minutes Coding Level of Care Code Acute Code for Chg Fwd Diagnoses Acute on chronic diastolic heart failure I50.33 Atrial fibrillation, unspecified type I48.91 Atrial fibrillation type: unspecified Hyperkalemia E87.5 Time Spent (min) 15
[2024-06-16] MEDS: oxyCODONE 5 mg IR Tab/Cap 15 MG PO (17:20)
[2024-06-16] MEDS: tamsulosin 0.4 mg Capsule PO (20:09)
[2024-06-16 20:14] LABS: Glucose Point of Care 145 mg/dL (70-110)
[2024-06-17] VITALS (11 sets, daily range): BP systolic 92–164; BP diastolic 64–93; PULSE 78–94; RESP 16–22; TEMP 36.4–37.3; O2SAT 93–99
[2024-06-17] MEDS: enoxaparin 40 mg/0.4 mL Syringe SUBCUT (00:17)
[2024-06-17] MEDS: famotidine 20 mg/2 mL INJ IVP ×2 (00:17→16:51)
[2024-06-17] MEDS: oxyCODONE 5 mg IR Tab/Cap 15 MG PO ×2 (03:35→20:02)
[2024-06-17] MEDS: aspirin 81 mg EC Tablet PO (05:08)
[2024-06-17] MEDS: magnesium oxide 400 mg tablet PO (05:08)
[2024-06-17] MEDS: duloxetine 30 mg Capsule PO (05:08)
[2024-06-17] MEDS: buPROPion XL (24 HR) 300 mg Tablet PO (05:08)
[2024-06-17 06:31] LABS: Glucose Point of Care 124 mg/dL (70-110)
[2024-06-17] MEDS: propafenone 150 mg Tablet PO ×3 (09:15→20:03)
[2024-06-17] MEDS: bumetanide 0.25 mg/mL SDV 4 mL 1 MG IVP (09:15)
[2024-06-17] MEDS: metoprolol tartrate 25 mg Tablet 37.5 MG PO ×2 (09:15→16:51)
--- NOTE | 2024-06-17 09:20 | PC.SOCIAL ---
IMM Updated Updated pt on IMM. No questions voiced. Provided pt a copy. Initialed, dated, & timed a copy & placed in chart.
--- NOTE | 2024-06-17 13:26 | PM.PN ---
Subjective Subjective: No acute overnight events noted Medications: Reviewed: Yes Vitals/I&O/Wt Last Vital Signs Temp 97.9 F 06/17/24 11:38 Pulse 88 06/17/24 13:21 Resp 18 06/17/24 11:38 BP 92/64 06/17/24 11:38 Pulse Ox 96 06/17/24 13:21 O2 Del Method Nasal Cannula 06/17/24 11:38 O2 Flow Rate 3 06/16/24 20:00 FiO2 28 06/17/24 13:21 06/16/24 06/17/24 06/17/24 22:59 06:59 14:59 Intake Total 240 / 780 680 / 1460 240 / 240 Output Total 400 / 1350 1050 / 2400 Balance -160 / -570 -370 / -940 240 / 240 Weight last 48 hrs Weight 123.831 kg Weight 124.058 kg Physical Exam Narrative: He is alert awake and oriented x 3 chest clear to auscultation bilaterally Cardiovascular normal heart sounds, no murmurs Abdomen soft, nondistended nontender, normal bowel sounds Extremities 2+ pitting edema present bilateral lower extremity Urinary Catheter Management: Brumfield: Cath Placed During This Visit: yes Reason for Continuing Indwelling Catheter: Not indwelling catheter Urinary Catheter Date of Insertion: 06/15/24 Urinary Catheter Time of Insertion: 06:05 Data 06/16/24 05:45 06/16/24 05:45 A&P Assessment and plan (1) Acute on chronic diastolic heart failure: (2) Atrial fibrillation: Qualifiers: Atrial fibrillation type: unspecified Qualified Code(s): I48.91 - Unspecified atrial fibrillation (3) Hyperkalemia: Plan Dajuan Presley is a 78 year old male with a past medical history of CHF, CAD, hypertension, CKD, TIA, history of subdural hematoma, history of cardioversion for atrial fibrillation, history of CABG who presents [facility] for shortness of breath. Acute diastolic CHF exacerbation - Anasarca, fluid overload, elevated BNP Plan - Bumex 1 mg IV push every 12 hours - Fluid restrictions of 1000 cc - Monitor creatinine monitor potassium - Cardiac echo Atrial fibrillation - No anticoagulation due to history of intracranial hemorrhage - Continue propafenone - Continue metoprolol - Continue aspirin Chronic pain, continue home oxycodone Hyperkalemia, receiving Bumex, Kayexalate, telemetric monitoring Full code Lovenox for DVT prophylaxis 06/15/24 #SOB-likely secondary to acute hypercarbic respiratory failure with PCO2 of 84 on ABG this morning. Less likely cardiac origin. Chest x-ray negative for fluid overload/pneumonia. BNP 3654, hence we will continue IV Bumex 1 mg every 12 hours. 3 sets of troponins 83, 80, 89, plateaued. Less likely ACS. Follow-up echo Will start on BiPAP IV Ativan 1 mg every 8 hours as needed for agitation Continue telemetry monitoring Will repeat ABG at 6 PM #Atrial fibrillation-rate controlled Will continue p.o. metoprolol and aspirin ECHO CONCLUSIONS Normal left ventricular size and systolic function, EF 60%.. Abnormal septal motion consistent with conduction abnormality. Grade I/IV diastolic dysfunction (abnormal relaxation filling pattern), normal to mildly elevated filling pressures. Mild biatrial enlargement Minimal thickened aortic valve. Trace aortic valve regurgitation. Mild to moderate tricuspid valve regurgitation. Mild pulmonary hypertension. Estimated pulmonary artery peak systolic pressure 48 mmHg. Trace pulmonary valve regurgitation. There is no pericardial effusion. #Agitation- likely secondary to hypercarbia will do IV ativan 1mg q8h prn. #TONY-patient does not use CPAP machine at home. Family, daughter at bedside who reports patient denies using CPAP although diagnosed with obstructive sleep apnea. Family counseled and educated about benefits of CPAP. Family to reinforce patient about use of CPAP at home. Family counseled and explained about diagnosis and plan of care, seems to understand and agrees with the plan. 06/16/24 Patient doing well this morning. pCO2 improved to 74 on BiPAP. He would likely need long-term BiPAP for COPD and hypercarbic respiratory failure. Will follow-up case management for discharge planning. Anticipating discharge in a.m. with BiPAP. OLLIE, likely secondary to diuretics, creatinine 1.3. Will reduce IV Bumex to 2 mg daily. Continue to monitor. 06/17/24 He has been doing well on BiPAP. Will need BiPAP long-term for COPD and hypercarbic respiratory failure. Patient nonambulatory needs two-person assist. Will follow-up case management for discharge planning PDMP PDMP Reviewed: Not Reviewed Attestations Medical Necessity Statement*: Anticipating discharge in 48 hours Time Spent in Patient Care: 15minutes Coding Level of Care Code Acute Code for Chg Fwd Diagnoses Acute on chronic diastolic heart failure I50.33 Atrial fibrillation, unspecified type I48.91 Atrial fibrillation type: unspecified Hyperkalemia E87.5 Time Spent (min) 15
[2024-06-17] MEDS: tamsulosin 0.4 mg Capsule PO (20:02)
[2024-06-18] VITALS (12 sets, daily range): BP systolic 107–126; BP diastolic 64–82; PULSE 76–93; RESP 14–24; TEMP 36.4–37; O2SAT 93–98
[2024-06-18] MEDS: enoxaparin 40 mg/0.4 mL Syringe SUBCUT ×2 (00:04→23:31)
[2024-06-18] MEDS: famotidine 20 mg/2 mL INJ IVP (02:06)
[2024-06-18] MEDS: buPROPion XL (24 HR) 300 mg Tablet PO (05:21)
[2024-06-18] MEDS: aspirin 81 mg EC Tablet PO (05:21)
[2024-06-18] MEDS: magnesium oxide 400 mg tablet PO (05:21)
[2024-06-18] MEDS: duloxetine 30 mg Capsule PO (05:21)
[2024-06-18 06:12] LABS: Anion Gap 11.2 (5-19); Blood Urea Nitrogen 18 mg/dL (8-23); Calcium 8.9 mg/dL (8.5-10.5); Chloride 92 mmol/L (98-107); Creatinine Clr Calc Pharmacy 74.0672; Glucose 112 mg/dL (65-115); Osmolality Calculated 293 mOsm/kg (285-295); Potassium 4.2 mmol/L (3.5-5.1); Sodium 140 mmol/L (136-145)
[2024-06-18 06:13] LABS: Carbon Dioxide 41 mmol/L (22-29)
[2024-06-18] MEDS: propafenone 150 mg Tablet PO ×3 (09:17→20:27)
[2024-06-18] MEDS: metoprolol tartrate 25 mg Tablet 37.5 MG PO ×2 (09:17→17:26)
[2024-06-18] MEDS: bumetanide 0.25 mg/mL SDV 4 mL 1 MG IVP ×2 (09:18→21:20)
--- NOTE | 2024-06-18 12:56 | P.PN_ITS ---
Subjective 2 Subjective: No acute overnight events noted. Daughter at bedside, explained plan of care about option for subacute nursing facility for rehab therapy. Daughter agrees. Will follow-up case management on Thursday for subacute shelter Medications: Reviewed: Yes Vitals/I&O/Wt Last Vital Signs Temp 98.6 F 06/18/24 11:59 Pulse 76 06/18/24 11:59 Resp 17 06/18/24 11:59 BP 119/69 06/18/24 11:59 Pulse Ox 98 06/18/24 11:59 O2 Del Method Nasal Cannula 06/18/24 11:59 O2 Flow Rate 5 06/18/24 08:48 FiO2 28 06/18/24 04:00 06/17/24 06/18/24 06/18/24 22:59 06:59 14:59 Intake Total 240 / 480 360 / 360 Output Total 850 / 850 475 / 1325 900 / 900 Balance -610 / -370 -475 / -845 -540 / -540 Weight last 48 hrs Weight 120.565 kg Weight 123.831 kg Physical Exam 2 Narrative: He is alert awake and oriented x 3 chest clear to auscultation bilaterally Cardiovascular normal heart sounds, no murmurs Abdomen soft, nondistended nontender, normal bowel sounds Extremities 2+ pitting edema present bilateral lower extremity Urinary Catheter Management: Brumfield: Cath Placed During This Visit: yes Reason for Continuing Indwelling Catheter: Other Urinary Catheter Date of Insertion: 06/15/24 Urinary Catheter Time of Insertion: 06:05 Data 06/16/24 05:45 06/18/24 05:32 A&P Assessment and plan (1) Acute on chronic diastolic heart failure: (2) Atrial fibrillation: Qualifiers: Atrial fibrillation type: unspecified Qualified Code(s): I48.91 - Unspecified atrial fibrillation (3) Hyperkalemia: Plan Dajuan Presley is a 78 year old male with a past medical history of CHF, CAD, hypertension, CKD, TIA, history of subdural hematoma, history of cardioversion for atrial fibrillation, history of CABG who presents [facility] for shortness of breath. Acute diastolic CHF exacerbation - Anasarca, fluid overload, elevated BNP Plan - Bumex 1 mg IV push every 12 hours - Fluid restrictions of 1000 cc - Monitor creatinine monitor potassium - Cardiac echo Atrial fibrillation - No anticoagulation due to history of intracranial hemorrhage - Continue propafenone - Continue metoprolol - Continue aspirin Chronic pain, continue home oxycodone Hyperkalemia, receiving Bumex, Kayexalate, telemetric monitoring Full code Lovenox for DVT prophylaxis 06/15/24 #SOB-likely secondary to acute hypercarbic respiratory failure with PCO2 of 84 on ABG this morning. Less likely cardiac origin. Chest x-ray negative for fluid overload/pneumonia. BNP 3654, hence we will continue IV Bumex 1 mg every 12 hours. 3 sets of troponins 83, 80, 89, plateaued. Less likely ACS. Follow-up echo Will start on BiPAP IV Ativan 1 mg every 8 hours as needed for agitation Continue telemetry monitoring Will repeat ABG at 6 PM #Atrial fibrillation-rate controlled Will continue p.o. metoprolol and aspirin ECHO CONCLUSIONS Normal left ventricular size and systolic function, EF 60%.. Abnormal septal motion consistent with conduction abnormality. Grade I/IV diastolic dysfunction (abnormal relaxation filling pattern), normal to mildly elevated filling pressures. Mild biatrial enlargement Minimal thickened aortic valve. Trace aortic valve regurgitation. Mild to moderate tricuspid valve regurgitation. Mild pulmonary hypertension. Estimated pulmonary artery peak systolic pressure 48 mmHg. Trace pulmonary valve regurgitation. There is no pericardial effusion. #Agitation- likely secondary to hypercarbia will do IV ativan 1mg q8h prn. #TONY-patient does not use CPAP machine at home. Family, daughter at bedside who reports patient denies using CPAP although diagnosed with obstructive sleep apnea. Family counseled and educated about benefits of CPAP. Family to reinforce patient about use of CPAP at home. Family counseled and explained about diagnosis and plan of care, seems to understand and agrees with the plan. 06/16/24 Patient doing well this morning. pCO2 improved to 74 on BiPAP. He would likely need long-term BiPAP for COPD and hypercarbic respiratory failure. Will follow- up case management for discharge planning. Anticipating discharge in a.m. with BiPAP. OLLIE, likely secondary to diuretics, creatinine 1.3. Will reduce IV Bumex to 2 mg daily. Continue to monitor. 06/17/24 He has been doing well on BiPAP. Will need BiPAP long-term for COPD and hypercarbic respiratory failure. Patient nonambulatory needs two-person assist. Will follow-up case management for discharge planning 06/18/24 He has been hemodynamically stable. Tolerating BiPAP well and requiring only overnight. As per the daughter who is at bedside reports that he has been ambulating to the bathroom prior to admission. Follow-up with PT for further recommendations. Will follow-up case management on Thursday for option for subacute nursing facility for rehab. PDMP PDMP Reviewed: Not Reviewed Attestations 2 Medical Necessity Statement*: Awaiting social management for discharge to subacute [place] Time Spent in Patient Care: 15 minutes Coding Level of Care Code Acute Code for Chg Fwd Diagnoses Acute on chronic diastolic heart failure I50.33 Atrial fibrillation, unspecified type I48.91 Atrial fibrillation type: unspecified Hyperkalemia E87.5 Time Spent (min) 15
[2024-06-18] MEDS: oxyCODONE 5 mg IR Tab/Cap 15 MG PO (17:25)
[2024-06-18] MEDS: ondansetron 4 MG Tablet PO (17:25)
[2024-06-18] MEDS: famotidine 20 mg Tablet PO (17:25)
[2024-06-18] MEDS: tamsulosin 0.4 mg Capsule PO (20:27)
--- NOTE | 2024-06-18 20:34 | XRR_ITS ---
PROCEDURE INFORMATION: Exam: XR Chest Exam date and time: 06/18/2024 8:46 PM Age: 78 years old Clinical indication: Shortness of breath; Additional info: SOB TECHNIQUE: Imaging protocol: Radiologic exam of the chest. Views: 1 view. COMPARISON: CR (CHEST, ) 06/14/2024 9:35 PM FINDINGS: Lungs: Bibasilar atelectasis. No focal consolidation. Small lung volumes. Pleural spaces: No pleural effusion. No pneumothorax. Heart/Mediastinum: Prominent cardiac shadow, grossly stable compared to prior. Bones/joints: Left shoulder arthroplasty. XR/XR chest 1V portable [id number] IMPRESSION: Small lung volumes limiting the evaluation. Overall, no significant change compared to prior exam from 06/14/2024.
[2024-06-18 20:39] LABS: Glucose Point of Care 130 mg/dL (70-110)
[2024-06-18 21:17] LABS: ABG PH Result 7.32 (7.35-7.45); Arterial Blood Gas Hematocrit 37.2 % (42-52); Base Excess ABG 20.6 mmol/L (-2.0-2.0); Blood Gas Operator Identificat SAM; Blood Gas Sample Site Brachial, left; Blood Gas Sample Type Arterial; HCO3 ABG 51.6 mmol/L (22-26); Oxygen Device BIPAP; PO2 FiO2 Ratio Arterial Blood 311
[2024-06-19] VITALS (15 sets, daily range): BP systolic 110–130; BP diastolic 55–94; PULSE 66–93; RESP 10–23; TEMP 36.3–36.9; O2SAT 90–100
[2024-06-19 03:33] LABS: ABG PH Result 7.41 (7.35-7.45); Arterial Blood Gas Hematocrit 37.8 % (42-52); Blood Gas Operator Identificat SAM; Blood Gas Sample Site Brachial, left; Blood Gas Sample Type Arterial; HCO3 ABG 51.3 mmol/L (22-26); Oxygen Device BIPAP; PO2 ABG 55.4 mmHg (80.0-100.0); PO2 FiO2 Ratio Arterial Blood 213
--- NOTE | 2024-06-19 04:59 | PC.NURSE ---
This nurse went in to patients room due to hearing alarm going off for low oxygen saturation on continuous pulse ox. When entering the room patient was off bi-pap and on room air and saturating at 65%. Patients stated yeah I took his bipap off so he can eat something. this nurse has educated patient and patient's several times about the importance of wearing bipap due to not being able to maintain safe range of oxygen saturation without it. Charge nurse Alejandrina Fermin RN came in to room to also educate patient and patient's about importance of wearing bipap mask. Patient put back on bipap and oxygen saturation came back up to 92% with continuous pulse ox monitoring still in place.
[2024-06-19] MEDS: buPROPion XL (24 HR) 300 mg Tablet PO (05:17)
[2024-06-19] MEDS: magnesium oxide 400 mg tablet PO (05:17)
[2024-06-19] MEDS: duloxetine 30 mg Capsule PO (05:17)
[2024-06-19] MEDS: aspirin 81 mg EC Tablet PO (05:17)
[2024-06-19 08:03] LABS: Basophils % 0.5 %; Eosinophils # 0.2 10^3/uL (0.0-0.8); Eosinophils % 3.8 %; Hematocrit 36.9 % (37-53); Lymphocytes # 1.9 10^3/uL (0.8-4.8); Lymphocytes % 29.7 %; Mean Corpuscular HGB Conc 30.6 g/dL (30-55); Mean Corpuscular Hemoglobin 32.4 pg (27-33); Mean Corpuscular Volume 105.7 fl (82-101); Mean Platelet Volume 10.6 fL (7.4-10.4); Monocytes # 0.8 10^3/uL (0.2-0.9); Monocytes % 12.1 %; Neutrophils # 3.42 10^3/uL (1.8-7.7); Neutrophils % 53.6 %; Nucleated Red Blood Cells % 0 %; Platelet Count 130 10^3/cmm (157-399); Red Blood Count 3.49 10^6/uL (3.85-5.65); Red Cell Distribution Width 12.8 % (12.1-15.1); White Blood Count 6.37 10^3/uL (3.29-11.43)
[2024-06-19 08:34] LABS: Anion Gap 9.1 (5-19); Blood Urea Nitrogen 16 mg/dL (8-23); Calcium 8.8 mg/dL (8.5-10.5); Chloride 92 mmol/L (98-107); Creatinine Clr Calc Pharmacy 68.1895; Glucose 123 mg/dL (65-115); Magnesium 2.2 mg/dL (1.7-2.3); Osmolality Calculated 297 mOsm/kg (285-295); Potassium 4.1 mmol/L (3.5-5.1); Sodium 142 mmol/L (136-145)
[2024-06-19 08:41] LABS: Carbon Dioxide 45 mmol/L (22-29)
[2024-06-19] MEDS: metoprolol tartrate 25 mg Tablet 37.5 MG PO ×2 (09:31→17:25)
[2024-06-19] MEDS: propafenone 150 mg Tablet PO ×3 (09:32→20:00)
[2024-06-19] MEDS: famotidine 20 mg Tablet PO ×2 (09:32→17:25)
[2024-06-19] MEDS: bumetanide 1 mg Tablet PO (09:32)
[2024-06-19] MEDS: acetaminophen 325 mg Tablet 650 MG PO (10:07)
[2024-06-19 10:29] LABS: ABG PCO2 81.7 mmHg (35-45)
--- NOTE | 2024-06-19 10:49 | P.PN_ITS ---
Subjective 2 Subjective: No acute overnight events noted. Daughter at bedside, explained plan of care about option for subacute nursing facility for rehab therapy. Daughter agrees. Will follow-up case management on Thursday for subacute fpc Medications: Reviewed: Yes Vitals/I&O/Wt Last Vital Signs Temp 97.8 F 06/19/24 07:23 Pulse 93 06/19/24 09:05 Resp 18 06/19/24 09:05 BP 111/71 06/19/24 07:23 Pulse Ox 100 06/19/24 09:05 O2 Del Method Nasal Cannula 06/19/24 09:05 O2 Flow Rate 5 06/19/24 09:05 FiO2 26 06/19/24 03:15 06/18/24 06/19/24 06/19/24 22:59 06:59 14:59 Intake Total 120 / 120 Output Total 250 / 1150 350 / 1500 Balance -250 / -790 -350 / -1140 120 / 120 Weight last 48 hrs Weight 121.608 kg Weight 120.565 kg Physical Exam 2 Narrative: He is alert awake and oriented x 3 chest clear to auscultation bilaterally Cardiovascular normal heart sounds, no murmurs Abdomen soft, nondistended nontender, normal bowel sounds Extremities 2+ pitting edema present bilateral lower extremity Urinary Catheter Management: [place]umfield: Cath Placed During This Visit: yes Reason for Continuing Indwelling Catheter: Accurate Measurement of Urinary Output in Critically Ill Patients Urinary Catheter Date of Insertion: 06/15/24 Urinary Catheter Time of Insertion: 06:05 Data 06/19/24 07:56 06/19/24 07:56 A&P Assessment and plan (1) Acute on chronic diastolic heart failure: (2) Atrial fibrillation: Qualifiers: Atrial fibrillation type: unspecified Qualified Code(s): I48.91 - Unspecified atrial fibrillation (3) Hyperkalemia: Plan Dajuan Presley is a 78 year old male with a past medical history of CHF, CAD, hypertension, CKD, TIA, history of subdural hematoma, history of cardioversion for atrial fibrillation, history of CABG who presents [facility] for shortness of breath. Acute diastolic CHF exacerbation - Anasarca, fluid overload, elevated BNP Plan - Bumex 1 mg IV push every 12 hours - Fluid restrictions of 1000 cc - Monitor creatinine monitor potassium - Cardiac echo Atrial fibrillation - No anticoagulation due to history of intracranial hemorrhage - Continue propafenone - Continue metoprolol - Continue aspirin Chronic pain, continue home oxycodone Hyperkalemia, receiving Bumex, Kayexalate, telemetric monitoring Full code Lovenox for DVT prophylaxis 06/15/24 #SOB-likely secondary to acute hypercarbic respiratory failure with PCO2 of 84 on ABG this morning. Less likely cardiac origin. Chest x-ray negative for fluid overload/pneumonia. BNP 3654, hence we will continue IV Bumex 1 mg every 12 hours. 3 sets of troponins 83, 80, 89, plateaued. Less likely ACS. Follow-up echo Will start on BiPAP IV Ativan 1 mg every 8 hours as needed for agitation Continue telemetry monitoring Will repeat ABG at 6 PM #Atrial fibrillation-rate controlled Will continue p.o. metoprolol and aspirin ECHO CONCLUSIONS Normal left ventricular size and systolic function, EF 60%.. Abnormal septal motion consistent with conduction abnormality. Grade I/IV diastolic dysfunction (abnormal relaxation filling pattern), normal to mildly elevated filling pressures. Mild biatrial enlargement Minimal thickened aortic valve. Trace aortic valve regurgitation. Mild to moderate tricuspid valve regurgitation. Mild pulmonary hypertension. Estimated pulmonary artery peak systolic pressure 48 mmHg. Trace pulmonary valve regurgitation. There is no pericardial effusion. #Agitation- likely secondary to hypercarbia will do IV ativan 1mg q8h prn. #TONY-patient does not use CPAP machine at home. Family, daughter at bedside who reports patient denies using CPAP although diagnosed with obstructive sleep apnea. Family counseled and educated about benefits of CPAP. Family to reinforce patient about use of CPAP at home. Family counseled and explained about diagnosis and plan of care, seems to understand and agrees with the plan. 06/16/24 Patient doing well this morning. pCO2 improved to 74 on BiPAP. He would likely need long-term BiPAP for COPD and hypercarbic respiratory failure. Will follow- up case management for discharge planning. Anticipating discharge in a.m. with BiPAP. OLLIE, likely secondary to diuretics, creatinine 1.3. Will reduce IV Bumex to 2 mg daily. Continue to monitor. 06/17/24 He has been doing well on BiPAP. Will need BiPAP long-term for COPD and hypercarbic respiratory failure. Patient nonambulatory needs two-person assist. Will follow-up case management for discharge planning 06/18/24 He has been hemodynamically stable. Tolerating BiPAP well and requiring only overnight. As per the daughter who is at bedside reports that he has been ambulating to the bathroom prior to admission. Follow-up with PT for further recommendations. Will follow-up case management on Thursday for option for subacute nursing facility for rehab. 06/19/24 Hemodynamically stable. labs reviewed and are acceptable.Awaiting social management in am for discharge planning. PDMP PDMP Reviewed: Not Reviewed Attestations 2 Medical Necessity Statement*: Awaiting social management for discharge to subacute [place] Time Spent in Patient Care: 10 minutes Coding Level of Care Code Acute Code for Chg Fwd Diagnoses Acute on chronic diastolic heart failure I50.33 Atrial fibrillation, unspecified type I48.91 Atrial fibrillation type: unspecified Hyperkalemia E87.5 Time Spent (min) 10
[2024-06-19] MEDS: Fleet Enema 133 mL Enema PR (10:54)
[2024-06-19] MEDS: docusate sodium 100 mg Capsule PO (17:25)
[2024-06-19] MEDS: tamsulosin 0.4 mg Capsule PO (20:00)
[2024-06-20] VITALS (13 sets, daily range): BP systolic 116–139; BP diastolic 76–95; PULSE 80–93; RESP 16–20; TEMP 36.6–37.2; O2SAT 93–100
[2024-06-20] MEDS: enoxaparin 40 mg/0.4 mL Syringe SUBCUT (00:10)
[2024-06-20] MEDS: buPROPion XL (24 HR) 300 mg Tablet PO (05:14)
[2024-06-20] MEDS: duloxetine 30 mg Capsule PO (05:14)
[2024-06-20] MEDS: aspirin 81 mg EC Tablet PO (05:14)
[2024-06-20] MEDS: magnesium oxide 400 mg tablet PO (05:15)
[2024-06-20] MEDS: polyethylene glycol 3350 Pkt 17 gm PO (09:35)
[2024-06-20] MEDS: propafenone 150 mg Tablet PO ×3 (09:35→21:35)
[2024-06-20] MEDS: docusate sodium 100 mg Capsule PO ×2 (09:35→18:27)
[2024-06-20] MEDS: famotidine 20 mg Tablet PO ×2 (09:36→18:27)
[2024-06-20] MEDS: metoprolol tartrate 25 mg Tablet 37.5 MG PO ×2 (09:36→18:28)
[2024-06-20] MEDS: bumetanide 1 mg Tablet PO (09:37)
--- NOTE | 2024-06-20 09:58 | PC.SOCIAL ---
IMM Update pg 2 of IMM Updated and reviewed w/ patient. Copy provided and copy dated, initialed and placed in chart.
--- NOTE | 2024-06-20 11:56 | PM.DCS ---
Discharge Providers Date of Admission: 06/14/24 23:59 Date of Discharge: June 20, 2024 Attending Provider at Admission: Link Claire MD Attending Provider at Discharge: Chiara Benavides MD Primary Care Provider: Igor Aguilera Diagnoses at Discharge Discharge Diagnosis (1) Acute on chronic diastolic heart failure: Status: Acute (2) Atrial fibrillation: Status: Acute Qualifiers: Atrial fibrillation type: unspecified Qualified Code(s): I48.91 - Unspecified atrial fibrillation Permanent problem details: Not anticoagulated due to ICH (3) Hyperkalemia: Status: Acute Reason for Visit Reason for Visit: SOB Brief History: Dajuan Presley is a 78 year old male with a past medical history of CHF, CAD, hypertension, CKD, TIA, history of subdural hematoma, history of cardioversion for atrial fibrillation, history of CABG who presents [facility] for shortness of breath. Patient reports increased shortness of breath with exertion, progressing to shortness of breath at rest, increased lower extremity edema, does report orthopnea, paroxysmal nocturnal dyspnea, no chest pain, no palpitations, no fevers, no cough, he is taking Lasix at home Hospital Course Hospital Course Patient was treated for acute diastolic CHF and hypercarbic respiratory failure with intermittent bipap, bumex iv and fluid restriction.. His Co2 improved. He has been more alert and awake, comprehensive. He has PT eval and was found to be more benefited from Subacute rehab. This morning he had an episode of hematuria, hence CBC done which showed hemoglobin is stable and US kidneys showed changes consistent with chronic kidney disease. Will discharge him with ceja catheter. Hematuria clearing up, was likely traumatic. Held his aspirin which can be restarted once hematuria resolves. He needs repeat CBC in 4 days and follow up with urology as outpatient for history of prostate cancer and persistent hematuria if it continues. Physical Exam Narrative: He is alert awake and oriented x 3 chest clear to auscultation bilaterally Cardiovascular normal heart sounds, no murmurs Abdomen soft, nondistended nontender, normal bowel sounds Extremities 2+ pitting edema present bilateral lower extremity Urinary Catheter Management: Ceja: Cath Placed During This Visit: yes Reason for Continuing Indwelling Catheter: Other Urinary Catheter Date of Insertion: 06/15/24 Urinary Catheter Time of Insertion: 06:05 Discharge Data Studies Completed and Pending Completed Studies During Hospitalization Category Date Time Status XR chest 1V portable [id number] Routine Exams 06/18/24 20:34 Completed XR chest 1V portable [id number] Stat Exams 06/14/24 21:32 Completed XR pelvis 1-2V* [id number] Stat Exams 06/14/24 23:35 Completed CV. echo complete* [id number] Stat Ultrasound 06/15/24 00:02 Completed Radiology Impressions Pelvis X-Ray 06/14/24 23:35 IMPRESSION: No acute findings. Chest X-Ray 06/18/24 20:34 IMPRESSION: Small lung volumes limiting the evaluation. Overall, no significant change compared to prior exam from 06/14/2024. Laboratory Results WBC 6.37 10^3/uL (3.29-11.43) 06/19/24 07:56 RBC 3.49 10^6/uL (3.85-5.65) L 06/19/24 07:56 Hgb 11.30 g/dL (11.27-16.99) 06/19/24 07:56 Hct 36.9 % (37-53) L 06/19/24 07:56 MCV 105.7 fl (82-101) H 06/19/24 07:56 MCH 32.4 pg (27-33) 06/19/24 07:56 MCHC 30.6 g/dL (30-55) 06/19/24 07:56 RDW 12.8 % (12.1-15.1) 06/19/24 07:56 Plt Count 130 10^3/cmm (157-399) L 06/19/24 07:56 MPV 10.6 fL (7.4-10.4) H 06/19/24 07:56 Neut % (Auto) 53.6 % 06/19/24 07:56 Lymph % (Auto) 29.7 % 06/19/24 07:56 [place] % (Auto) 12.1 % 06/19/24 07:56 Eos % (Auto) 3.8 % 06/19/24 07:56 Baso % (Auto) 0.5 % 06/19/24 07:56 Neut # (Auto) 3.42 10^3/uL (1.8-7.7) 06/19/24 07:56 Lymph # (Auto) 1.9 10^3/uL (0.8-4.8) 06/19/24 07:56 [place] # (Auto) 0.8 10^3/uL (0.2-0.9) 06/19/24 07:56 Eos # (Auto) 0.2 10^3/uL (0.0-0.8) 06/19/24 07:56 Baso # (Auto) 0.0 10^3/uL (0.0-0.1) 06/19/24 07:56 Nucleated RBC % (auto) 0 % 06/19/24 07:56 Nucleated RBCs # 0.0 /100WBC 06/19/24 07:56 PT 12.60 SECONDS (12.1-14.9) 06/14/24 21:45 INR 0.88 (0.8-1.2) 06/14/24 21:45 Specimen Type Arterial 06/19/24 03:21 Sample Site Brachial, left 06/19/24 03:21 ABG pH 7.41 (7.35-7.45) 06/19/24 03:21 ABG pCO2 81.7 mmHg (35-45) H* 06/19/24 03:21 ABG pO2 55.4 mmHg (80.0-100.0) L 06/19/24 03:21 ABG PO2/FiO2 Ratio 213 06/19/24 03:21 ABG HCO3 51.3 mmol/L (22-26) H 06/19/24 03:21 ABG O2 Saturation 93.6 06/15/24 18:12 ABG Base Excess 22.0 mmol/L (-2.0-2.0) H 06/19/24 03:21 Dian Test N/a 06/19/24 03:21 A-a O2 Gradient 6.1 mmHg (5-10) 06/15/24 18:12 Hematocrit 37.8 % (42-52) L 06/19/24 03:21 Hgb O2 Saturation 91.1 % (95-100) L 06/15/24 18:12 Carboxyhemoglobin 1.9 %THgb (0.4-20.1) 06/15/24 18:12 Methemoglobin 0.7 % (0.4-1.5) 06/15/24 18:12 Total Hemoglobin 11.9 g/dL (14-18) L 06/15/24 18:12 Sodium 140.0 mmol/L (131-143) 06/15/24 18:12 Potassium 3.7 mmol/L (3.5-5.0) 06/15/24 18:12 Glucose 99.0 mg/dL (70-115) 06/15/24 18:12 Ionized Calcium 1.2 mmol/L (1.1-1.4) 06/15/24 18:12 O2 Delivery Device Bipap 06/19/24 03:21 O2 Liters/Min 2.0 % 06/15/24 09:10 FiO2 26.0 % 06/19/24 03:21 Mine Motor Operator ID Humza 06/19/24 03:21 Sodium 142 mmol/L (136-145) 06/19/24 07:56 Potassium 4.1 mmol/L (3.5-5.1) 06/19/24 07:56 Chloride 92 mmol/L (98-107) L 06/19/24 07:56 Carbon Dioxide 45 mmol/L (22-29) H* 06/19/24 07:56 Anion Gap 9.1 (5-19) 06/19/24 07:56 BUN 16 mg/dL (8-23) 06/19/24 07:56 Creatinine 1.2 mg/dL (0.7-1.2) 06/19/24 07:56 GFR Calculation Not Reportable 06/19/24 07:56 Glucose 123 mg/dL (65-115) H 06/19/24 07:56 POC Glucose 130 mg/dL (70-110) H 06/18/24 20:33 Calculated Osmolality 297 mOsm/kg (285-295) H 06/19/24 07:56 Lactic Acid 1.5 mmol/L (0.5-2.2) 06/14/24 21:45 Calcium 8.8 mg/dL (8.5-10.5) 06/19/24 07:56 Magnesium 2.2 mg/dL (1.7-2.3) 06/19/24 07:56 Total Bilirubin 0.8 mg/dL (0.15-1.2) 06/16/24 05:45 AST 31 U/L (0-40) 06/16/24 05:45 ALT 19 U/L (0-41) 06/16/24 05:45 Alkaline Phosphatase 111 U/L (40-130) 06/16/24 05:45 Troponin T Baseline 83 ng/L (0-15) H 06/14/24 21:45 Troponin T 120 Minute 80.38 ng/L (0-15) H 06/14/24 23:39 Delta Troponin T -2.62 ABS# (0-10) L 06/14/24 23:39 Troponin T Hi Sens 6Hr 89.79 ng/L (0-15) H 06/15/24 03:39 Troponin T Hi Sens 6Hr Delta 6.79 ng/L (0-12) 06/15/24 03:39 NT-Pro-B Natriuret Pep 3654 pg/mL (0-450) H 06/15/24 05:57 Total Protein 6.9 g/dL (6.6-8.7) 06/16/24 05:45 Albumin 3.7 g/dL (3.5-5.2) 06/16/24 05:45 Globulin 3.2 g/dL (1.3-4.6) 06/16/24 05:45 TSH 4.03 uIU/mL (0.27-4.20) 06/15/24 05:57 Urine Color Yellow (Yellow) 06/15/24 05:45 Urine Appearance Clear (CLEAR) 06/15/24 05:45 Urine pH 5.0 (5-7) 06/15/24 05:45 Ur Specific [place] 1.009 (1.005-1.030) 06/15/24 05:45 Urine Protein Negative (Negative) 06/15/24 05:45 Urine Glucose (UA) Negative (Normal) 06/15/24 05:45 Urine Ketones Negative (Negative) 06/15/24 05:45 Urine Blood Negative (Negative) 06/15/24 05:45 Urine Nitrate Negative (Negative) 06/15/24 05:45 Urine Bilirubin Negative (Negative) 06/15/24 05:45 Urine Urobilinogen 0.2 mg/dL (Negative) 06/15/24 05:45 Ur Leukocyte Esterase Negative (Negative) 06/15/24 05:45 Urine RBC 0-2 /hpf (0-2) 06/15/24 05:45 Urine WBC 0-5 /hpf (0-5) 06/15/24 05:45 Ur Squamous Epith Cells 0-5 /hpf (0-5) 06/15/24 05:45 Amorphous Sediment Not Reportable 06/15/24 05:45 Urine Bacteria None seen /hpf (NONE) 06/15/24 05:45 Hyaline Casts 3.30 /lpf 06/15/24 05:45 Influenza A (PCR) Negative (Negative) 06/14/24 21:37 Influenza Type B (PCR) Negative (Negative) 06/14/24 21:37 RSV (PCR) Negative (Negative) 06/14/24 21:37 SARS-CoV-2 (PCR) Negative (Negative) 06/14/24 21:37 Vitals Last Vital Signs Temp 97.9 F 06/20/24 11:09 Pulse 82 06/20/24 11:09 Resp 19 H 06/20/24 11:09 BP 116/76 06/20/24 11:09 Pulse Ox 98 06/20/24 11:09 O2 Del Method Nasal Cannula 06/20/24 11:09 O2 Flow Rate 2 06/20/24 08:00 FiO2 28 06/20/24 03:08 Discharge Plan Discharge Patient Disposition: Xfer SNF Condition: Fair Prescriptions: New polyethylene glycol 3350 17 gram Powder In Packet 17 g PO DAILY 30 Days Qty: 30 0RF metoprolol tartrate 25 mg Tablet 37.5 mg PO BID 30 Days Qty: 90 0RF duloxetine 30 mg Capsule,Delayed Release(Dr/Ec) 30 mg PO QAM 30 Days Qty: 30 0RF Continued tamsulosin 0.4 mg capsule 0.4 mg PO BEDTIME nitroglycerin [Nitrostat] 0.4 mg tablet, sublingual 0.4 mg sublingual Q5M PRN (Reason: chest pain) Qty: 25 3RF Rx Instructions: do not exceed 3 doses per episode potassium chloride 10 mEq capsule, extended release 60 meq PO BID Breztri Aerosphere 160-9-4.8 mcg/actuation HFA aerosol inhaler 2 inh inhalation BID oxycodone 15 mg Tablet 15 mg PO Q6H PRN (Reason: Pain) bupropion HCl 300 mg tablet extended release 24 hr 300 mg PO QAM albuterol sulfate 2.5 mg /3 mL (0.083 %) solution for nebulization 2.5 mg inhalation Q4H PRN (Reason: Shortness Of Breath) acetaminophen 650 mg Tablet Extended Release 650 mg PO Q6H PRN (Reason: Pain) zolpidem [Ambien CR] 6.25 mg Tablet,Ext Release Multiphase 6.25 mg PO BEDTIME magnesium oxide 400 mg magnesium Tablet 400 mg PO QAM propafenone 150 mg Tablet 150 mg PO TID Qty: 90 0RF furosemide 40 mg tablet 40 mg PO DAILY Rx Instructions: 40 mg orally albuterol sulfate 90 mcg/actuation Aero Powdr Breath Act W/Sensor 2 inh INHALATION QID omeprazole 20 mg capsule,delayed release(DR/EC) 20 mg PO QAM cholecalciferol (vitamin D3) [Vitamin D3] 25 mcg (1,000 unit) Tablet 25 mcg PO DAILY PreserVision AREDS-2 250-90-40-1 mg Capsule 1 tab PO BID Held aspirin 81 mg Tablet,Delayed Release (Dr/Ec) 81 mg PO QAM Hold Instructions: Resume on 06/24/24. Discontinued rizatriptan 10 mg tablet,disintegrating See Rx Instructions .ROUTE .COMPLEX Rx Instructions: PLACE 1 TABLET (10 MG) INSIDE CHEEK EVERY 2 HOURS NEEDED FOR MIGRAINE. MAY REPEAT IN 2 HOURS; MAX DOSE 20MG IN 24 HOURS metoprolol tartrate 25 mg tablet 25 mg PO BID duloxetine 60 mg capsule,delayed release(DR/EC) 60 mg PO DAILY Discharge Orders: Discharge Order (Routine); Ordered 06/21/24 Ordered By: Chiara Benavides Other Ambulatory Orders: DME: BIPAP (Order) Location: None Selected Ordered By: Chiara Benavides Referrals: [facility] [Outside] Igor Aguilera [Primary Care Provider] - Discharge Diet: Cardiac Discharge Activity: Increase activity as tolerated Patient Instructions: Opioid Safety Discharge Attestations Time Spent in Discharge Care*: less than 30 min Status at Discharge: Cognitive status at discharge: mildly impaired cognition, Behavioral status at discharge: cooperative, Quality Metrics Clinical Quality Measures [ No reported AMI, CVA or VTE this stay] Coding Level of Care Code Acute Code for Chg Fwd Diagnoses Acute on chronic diastolic heart failure I50.33 Atrial fibrillation, unspecified type I48.91 Atrial fibrillation type: unspecified Hyperkalemia E87.5 Time Spent (min) 20
--- NOTE | 2024-06-20 17:20 | P.PN_ITS ---
Subjective 2 Subjective: No acute overnight events noted Medications: Reviewed: Yes Vitals/I&O/Wt Last Vital Signs Temp 98.1 F 06/20/24 17:00 Pulse 86 06/20/24 17:00 Resp 19 H 06/20/24 17:00 BP 138/95 06/20/24 17:00 Pulse Ox 100 06/20/24 17:00 O2 Del Method Nasal Cannula 06/20/24 17:00 O2 Flow Rate 2 06/20/24 16:09 FiO2 28 06/20/24 03:08 06/20/24 06/20/24 06/20/24 06:59 14:59 22:59 Intake Total 0 / 780 480 / 480 Output Total 400 / 700 Balance -400 / 80 480 / 480 Weight last 48 hrs Weight 119.794 kg Weight 121.608 kg Physical Exam 2 Narrative: He is alert awake and oriented x 3 chest clear to auscultation bilaterally Cardiovascular normal heart sounds, no murmurs Abdomen soft, nondistended nontender, normal bowel sounds Extremities 2+ pitting edema present bilateral lower extremity Urinary Catheter Management: [place]: Cath Placed During This Visit: yes Reason for Continuing Indwelling Catheter: Other Urinary Catheter Date of Insertion: 06/15/24 Urinary Catheter Time of Insertion: 06:05 Data 06/19/24 07:56 06/19/24 07:56 Micro: Microbiology 06/14/24 21:45 Blood Culture - Final Blood NO GROWTH AFTER 5 DAYS 06/14/24 21:40 Blood Culture - Final Blood NO GROWTH AFTER 5 DAYS A&P Assessment and plan (1) Acute on chronic diastolic heart failure: (2) Atrial fibrillation: Qualifiers: Atrial fibrillation type: unspecified Qualified Code(s): I48.91 - Unspecified atrial fibrillation (3) Hyperkalemia: Plan Dajuan Presley is a 78 year old male with a past medical history of CHF, CAD, hypertension, CKD, TIA, history of subdural hematoma, history of cardioversion for atrial fibrillation, history of CABG who presents [facility] for shortness of breath. Acute diastolic CHF exacerbation - Anasarca, fluid overload, elevated BNP Plan - Bumex 1 mg IV push every 12 hours - Fluid restrictions of 1000 cc - Monitor creatinine monitor potassium - Cardiac echo Atrial fibrillation - No anticoagulation due to history of intracranial hemorrhage - Continue propafenone - Continue metoprolol - Continue aspirin Chronic pain, continue home oxycodone Hyperkalemia, receiving Bumex, Kayexalate, telemetric monitoring Full code Lovenox for DVT prophylaxis 06/15/24 #SOB-likely secondary to acute hypercarbic respiratory failure with PCO2 of 84 on ABG this morning. Less likely cardiac origin. Chest x-ray negative for fluid overload/pneumonia. BNP 3654, hence we will continue IV Bumex 1 mg every 12 hours. 3 sets of troponins 83, 80, 89, plateaued. Less likely ACS. Follow-up echo Will start on BiPAP IV Ativan 1 mg every 8 hours as needed for agitation Continue telemetry monitoring Will repeat ABG at 6 PM #Atrial fibrillation-rate controlled Will continue p.o. metoprolol and aspirin ECHO CONCLUSIONS Normal left ventricular size and systolic function, EF 60%.. Abnormal septal motion consistent with conduction abnormality. Grade I/IV diastolic dysfunction (abnormal relaxation filling pattern), normal to mildly elevated filling pressures. Mild biatrial enlargement Minimal thickened aortic valve. Trace aortic valve regurgitation. Mild to moderate tricuspid valve regurgitation. Mild pulmonary hypertension. Estimated pulmonary artery peak systolic pressure 48 mmHg. Trace pulmonary valve regurgitation. There is no pericardial effusion. #Agitation- likely secondary to hypercarbia will do IV ativan 1mg q8h prn. #TONY-patient does not use CPAP machine at home. Family, daughter at bedside who reports patient denies using CPAP although diagnosed with obstructive sleep apnea. Family counseled and educated about benefits of CPAP. Family to reinforce patient about use of CPAP at home. Family counseled and explained about diagnosis and plan of care, seems to understand and agrees with the plan. 06/16/24 Patient doing well this morning. pCO2 improved to 74 on BiPAP. He would likely need long-term BiPAP for COPD and hypercarbic respiratory failure. Will follow- up case management for discharge planning. Anticipating discharge in a.m. with BiPAP. OLLIE, likely secondary to diuretics, creatinine 1.3. Will reduce IV Bumex to 2 mg daily. Continue to monitor. 06/17/24 He has been doing well on BiPAP. Will need BiPAP long-term for COPD and hypercarbic respiratory failure. Patient nonambulatory needs two-person assist. Will follow-up case management for discharge planning 06/18/24 He has been hemodynamically stable. Tolerating BiPAP well and requiring only overnight. As per the daughter who is at bedside reports that he has been ambulating to the bathroom prior to admission. Follow-up with PT for further recommendations. Will follow-up case management on Thursday for option for subacute nursing facility for rehab. 06/19/24 Hemodynamically stable. labs reviewed and are acceptable.Awaiting social management in am for discharge planning. 06/20/24 Waiting for subacute rehab placement. PDMP PDMP Reviewed: Not Reviewed Attestations 2 Medical Necessity Statement*: Awaiting discharge to subacute rehab facility Time Spent in Patient Care: 10minutes Coding Level of Care Code Acute Code for Chg Fwd Diagnoses Acute on chronic diastolic heart failure I50.33 Atrial fibrillation, unspecified type I48.91 Atrial fibrillation type: unspecified Hyperkalemia E87.5 Time Spent (min) 10
[2024-06-20] MEDS: tamsulosin 0.4 mg Capsule PO (21:35)
[2024-06-21] VITALS (8 sets, daily range): BP systolic 130–164; BP diastolic 81–96; PULSE 75–99; RESP 16–22; TEMP 36.6–37; O2SAT 93–99
[2024-06-21] MEDS: enoxaparin 40 mg/0.4 mL Syringe SUBCUT (00:26)
[2024-06-21] MEDS: duloxetine 30 mg Capsule PO (05:20)
[2024-06-21] MEDS: magnesium oxide 400 mg tablet PO (05:20)
[2024-06-21] MEDS: aspirin 81 mg EC Tablet PO (05:20)
[2024-06-21] MEDS: buPROPion XL (24 HR) 300 mg Tablet PO (05:20)
[2024-06-21] MEDS: albuterol 2.5 mg/3 mL Neb INHALATION (08:05)
[2024-06-21] MEDS: metoprolol tartrate 25 mg Tablet 37.5 MG PO (09:42)
[2024-06-21] MEDS: bumetanide 1 mg Tablet PO (09:42)
[2024-06-21] MEDS: famotidine 20 mg Tablet PO (09:43)
[2024-06-21] MEDS: polyethylene glycol 3350 Pkt 17 gm PO (09:43)
[2024-06-21] MEDS: propafenone 150 mg Tablet PO ×2 (09:43→15:31)
[2024-06-21] MEDS: docusate sodium 100 mg Capsule PO (09:43)
[2024-06-21 12:28] LABS: Bacteria Urine None Seen /hpf; RBC Urine >100 /hpf (0-2); Squamous Epithelial Cell Urine 0-5 /hpf (0-5); WBC Urine 0-5 /hpf (0-5)
--- NOTE | 2024-06-21 12:43 | USR_ITS ---
PROCEDURE INFORMATION: Exam: US Retroperitoneal, Complete, Kidneys and Bladder Exam date and time: 06/21/2024 4:36 PM Age: 78 years old Clinical indication: Other: Hematuria; Additional info: Hematuria, has h/o prostate cancer TECHNIQUE: Imaging protocol: Real-time ultrasound of the retroperitoneum with image documentation. Complete exam focused on the bilateral kidneys and urinary bladder. COMPARISON: CT abdomen pelvis wo con [id number] 07/03/2023 3:42 PM FINDINGS: Right kidney: Right kidney measures 8.6 x 4.3 x 3.8 cm. Mild renal cortical thinning. No stones. No hydronephrosis. Left kidney: Left kidney measures 9.1 x 4.6 x 4.1 cm. No stones or hydronephrosis. Diffuse increase left renal cortical echogenicity. Urinary bladder: Unremarkable. US/US renal BI* [id number] IMPRESSION: 1. No hydronephrosis. 2. Diffuse increased left renal cortical echogenicity consistent medical renal disease. 3. Atrophic kidneys bilaterally.
[2024-06-21 12:51] LABS: Bilirubin Urine Negative (Negative); Blood Urine 2+ (Negative); Glucose Urine UA Negative (Normal); Ketones Urine Negative (Negative); Leukocyte Esterase Urine Trace (Negative); Nitrate Urine Negative (Negative); Protein Urine Negative (Negative); Specific Gravity, Urine 1.009 (1.005-1.030); Urine Color Yellow (Yellow)
[2024-06-21 12:52] LABS: Add Urine Microscopic? YES; UA Slide Review UA Slide Review Perf; Urine Appearance Turbid (CLEAR)
[2024-06-21 12:55] LABS: SARS Covid-2 Antigen Negative (Negative)
[2024-06-21 13:06] LABS: Basophils % 0.3 %; Eosinophils # 0.1 10^3/uL (0.0-0.8); Eosinophils % 1.3 %; Hematocrit 37.9 % (37-53); Lymphocytes # 1.6 10^3/uL (0.8-4.8); Lymphocytes % 18.7 %; Mean Corpuscular HGB Conc 31.4 g/dL (30-55); Mean Corpuscular Hemoglobin 32.4 pg (27-33); Mean Corpuscular Volume 103.3 fl (82-101); Mean Platelet Volume 10.7 fL (7.4-10.4); Monocytes % 11.4 %; Neutrophils # 5.89 10^3/uL (1.8-7.7); Nucleated Red Blood Cells % 0 %; Platelet Count 121 10^3/cmm (157-399); Red Blood Count 3.67 10^6/uL (3.85-5.65); Red Cell Distribution Width 12.7 % (12.1-15.1); White Blood Count 8.67 10^3/uL (3.29-11.43)
--- NOTE | 2024-06-21 17:59 | PC.NURSE ---
Pt discharging with ceja catheter in place per doctors order. IV removed. [facility] called and updated. Pt transported via stretcher by EMS.
== END 2024-06-21 18:07 | disposition skilled nursing facility (03) | DRG 291 ==
LOC: ER 23:44 → MEDSURG 06-15 00:24
PROVIDERS: Admitting Provider Family Medicine; Emergency Provider Student in an Organized Health Care Education/Training Program; PCP Family Medicine; Visit Provider Internal Medicine
DX: I13.0 Hypertensive heart and chronic kidney disease with heart failure and stage 1 through stage 4 chronic kidney disease, or unspecified chronic kidney disease (principal); I50.33 Acute on chronic diastolic (congestive) heart failure; J96.02 Acute respiratory failure with hypercapnia; N17.9 Acute kidney failure, unspecified; J44.9 Chronic obstructive pulmonary disease, unspecified; E78.5 Hyperlipidemia, unspecified; M19.90 Unspecified osteoarthritis, unspecified site; G43.809 Other migraine, not intractable, without status migrainosus; I48.91 Unspecified atrial fibrillation; E87.5 Hyperkalemia; G89.29 Other chronic pain; I25.10 Atherosclerotic heart disease of native coronary artery without angina pectoris; I07.1 Rheumatic tricuspid insufficiency; G47.33 Obstructive sleep apnea (adult) (pediatric); N40.1 Benign prostatic hyperplasia with lower urinary tract symptoms; R31.9 Hematuria, unspecified; N18.9 Chronic kidney disease, unspecified; Z95.1 Presence of aortocoronary bypass graft; Z87.891 Personal history of nicotine dependence; Z86.73 Personal history of transient ischemic attack (TIA), and cerebral infarction without residual deficits; Z99.81 Dependence on supplemental oxygen; Z88.5 Allergy status to narcotic agent; Z88.1 Allergy status to other antibiotic agents; Z88.8 Allergy status to other drugs, medicaments and biological substances; Z79.82 Long term (current) use of aspirin; Z79.899 Other long term (current) drug therapy; Z11.52 Encounter for screening for COVID-19
CPT/HCPCS: 36415; 36416; 36600; 51702; 71045; 72170; 76770; 80048; 80051; 80053; 81001; 82330; 82803; 82805; 82962; 83605; 83735; 83880; 84443; 84484; 85025; 85610; 87040; 87426; 87637; 93005; 93306; 94640; 94660; 96372; 96374; 96375; 97110; 97163; 97166; 97530; 97535; 99285; J1650; J2060; J2270; J2405; J3490; J7613; J9999; Q0162

== ENCOUNTER 2024-07-19 21:27 | Emergency (ER) | payer MEDICARE, SELFPAY ==
[2024-07-19 21:30] VITALS: BP 133/87; PULSE 89; RESP 18; TEMP 36.6; O2SAT 94; BMI 36.3
--- NOTE | 2024-07-19 21:45 | CTR_ITS ---
PROCEDURE INFORMATION: Exam: CT Cervical Spine Without Contrast Exam date and time: 07/19/2024 9:58 PM Age: 78 years old Clinical indication: Injury or trauma; Fall; Blunt trauma; Additional info: Fall, head head no loc TECHNIQUE: Imaging protocol: Computed tomography of the cervical spine without contrast. Radiation optimization: All CT scans at this facility use at least one of these dose optimization techniques: automated exposure control; mA and/or kV adjustment per patient size (includes targeted exams where dose is matched to clinical indication); or iterative reconstruction. COMPARISON: CT angio headneck* [id number] 07/22/2021 3:05 PM RADIATION DOSE METRICS: Total DLP (mGy-cm): 236.1 FINDINGS: Bones: No acute fracture. Normal alignment. No significant disc bulge or herniation. No severe spinal canal stenosis. Lungs: Suspected trace left apical pneumothorax. Soft tissues: Unremarkable. CT/CT cervical spin wo con* [id number] IMPRESSION: 1. No acute osseous abnormalities of the cervical spine. 2. Suspected trace left apical pneumothorax.
--- NOTE | 2024-07-19 21:45 | CTR_ITS ---
PROCEDURE INFORMATION: Exam: CT Head Without Contrast Exam date and time: 07/19/2024 9:58 PM Age: 78 years old Clinical indication: Injury or trauma; Fall; Blunt trauma (contusions or hematomas); Without loss of consciousness; Prior surgery; Surgery date: 6+ months; Surgery type: Brain; Additional info: Fall, head head no loc TECHNIQUE: Imaging protocol: Computed tomography of the head without contrast. Radiation optimization: All CT scans at this facility use at least one of these dose optimization techniques: automated exposure control; mA and/or kV adjustment per patient size (includes targeted exams where dose is matched to clinical indication); or iterative reconstruction. COMPARISON: CT head wo con* [id number] 02/15/2024 7:40 AM RADIATION DOSE METRICS: Total DLP (mGy-cm): 890.4 FINDINGS: Brain: No hemorrhage. No edema. Advanced diffuse cerebral atrophy old lacunar infarct in the right basal ganglia. Mild sequela of chronic small vessel ischemic disease. No mass effect. Cerebral ventricles: No ventriculomegaly. Paranasal sinuses: Visualized sinuses are unremarkable. No fluid levels. Mastoid air cells: Visualized mastoid air cells are well aerated. Bones: Left sided craniotomy. No acute fracture. Soft tissues: Unremarkable. CT/CT head wo con* [id number] IMPRESSION: No acute intracranial abnormality.
--- NOTE | 2024-07-19 21:50 | W.ED.FALL ---
HPI - Fall General: Chief Complaint: Fall Stated Complaint: fall, head lac Time Seen by Provider: 07/19/24 21:31 History of Present Illness: Mr. Graff presents to the emergency department after a fall where he hit his head. He denies losing consciousness or experiencing neck pain. The patient has a small cut on the back of his head, which the doctor describes as minor and not requiring stitches or glue. Mr. Graff reports a history of two back surgeries, which makes it difficult for him to lie flat on his back. He expresses concern about lying flat for imaging studies, stating that it causes significant discomfort. The patient mentions that he may need his feet propped up to tolerate lying on his back for an extended period. Related Data Home Medications ?Medication ?Instructions ?Recorded ?Confirmed tamsulosin 0.4 mg capsule 0.4 mg PO BEDTIME 05/04/19 06/15/24 oxycodone 15 mg tablet 15 mg PO Q6H PRN Pain 08/03/20 06/15/24 omeprazole 20 mg capsule,delayed 20 mg PO QAM 12/01/22 06/15/24 release cholecalciferol (vitamin D3) 25 25 mcg PO DAILY 02/01/23 06/15/24 mcg (1,000 unit) tablet (Vitamin D3) vit C 250 mg-vit E 90 mg-zinc 40 1 tab PO BID 02/01/23 06/15/24 mg-copper 1 [id number] capsule (PreserVision AREDS-2) acetaminophen 650 mg 650 mg PO Q6H PRN Pain 06/24/23 06/15/24 tablet,extended release albuterol sulfate 2.5 mg/3 mL 2.5 mg inhalation Q4H PRN 06/24/23 06/15/24 (0.083 %) solution for nebulization Shortness Of Breath aspirin 81 mg tablet,delayed 81 mg PO QAM 06/24/23 06/15/24 release Held on 06/21/24. Instructions: Resume on 06/24/24. bupropion HCl 300 mg 24 hr tablet, 300 mg PO QAM 06/24/23 06/15/24 extended release magnesium oxide 400 mg PO QAM 06/24/23 06/15/24 zolpidem 6.25 mg tablet,extended 6.25 mg PO BEDTIME 06/24/23 06/15/24 release,multiphase (Ambien CR) potassium chloride 10 mEq 60 meq PO BID 10/08/23 06/15/24 capsule,extended release albuterol sulfate 90 mcg/actuation 2 inh inhalation QID 02/15/24 06/15/24 breath activated powder inhaler,sensor furosemide 40 mg tablet 40 mg PO DAILY 02/15/24 06/15/24 budesonide 160 mcg-glycopyr 9 2 inh inhalation BID 04/11/24 06/15/24 mcg-formot 4.8 mcg/actuation HFA inhaler (Breztri Aerosphere) Previous Rx's ?Medication ?Instructions ?Recorded nitroglycerin 0.4 mg sublingual 0.4 mg sublingual Q5M PRN chest 11/06/21 tablet (Nitrostat) pain #25 tabs propafenone 150 mg tablet 150 mg PO TID #90 tabs 07/03/23 Allergies Allergy/AdvReac Type Severity Reaction Status Date / Time cefdinir (From Omnicef) Allergy Intermediate ADR-Vomitin Verified 07/19/24 21:34 g pentazocine (From Talwin) Allergy Unknown Unknown Verified 07/19/24 21:34 amiodarone AdvReac Intermediate Unknown Verified 07/19/24 21:34 Review of Systems General: Reports: 10 or more systems reviewed and unremarkable except in HPI and below PFSH ED PFSH: Medical History Dyslipidemia Subdural hematoma BPH (benign prostatic hyperplasia) Lower urinary tract symptoms (LUTS) Arthritis Chronic migraine Chronic kidney disease History of TIA (transient ischemic attack) ASHD (arteriosclerotic heart disease) CHF (congestive heart failure) HTN (hypertension) Surgical History Hx of CABG H/O craniotomy Previous back surgery S/P knee replacement S/P shoulder surgery S/P carpal tunnel release Family History Mother , AT AGE 76 BRAIN ANEURYSM No problems noted. Father , AT AGE 84 CROWN IRONER,HEART DISEASE Cancer PROSTATE CAD (coronary artery disease) Social History Smoking and tobacco/nicotine status: former use of tobacco/nicotine Alcohol intake: unknown Substance/Drug Use: unknown Adopted: No Caregiver/support person: No Lives independently: Yes Marital status: / Current occupational status: retired Current gender identity: Male Physical Exam Const: COMMON NORMALS: no acute distress, patient oriented x3, healthy appearing, alert and well nourished HENMT: COMMON NORMALS: normocephalic HEAD & SCALP: normocephalic Eye: COMMON NORMALS: EOMs intact bilaterally Neck/C-Spine: COMMON NORMALS: full ROM and supple Resp: COMMON NORMALS: normal respiratory effort, No retractions and clear to auscultation bilaterally AUSCULTATION: clear to auscultation bilaterally Cardio: COMMON NORMALS: regular rate, regular rhythm, No gallops present (Cardio) and No murmurs present (Cardio) RATE: regular rate RHYTHM: regular rhythm GI: COMMON NORMALS: Soft to palpation and non-tender PALPATION: Yes Soft to palpation Extremity: GENERAL: Yes normal exam except as noted Neuro: COMMON NORMALS: patient oriented x3 SENSORIUM/ORIENTATION: Yes alert Skin: COMMON NORMALS: turgor normal GENERAL SKIN EXAM: turgor normal LESIONS: lesion noted (Small skin tear to the occipital area) Course Vital Signs: Vital signs: Vital Signs Temperature 97.8 F 07/19/24 21:30 Pulse Rate 89 07/19/24 23:33 Respiratory Rate 16 07/19/24 23:33 Blood Pressure 140/98 07/19/24 23:33 Pulse Oximetry 91 07/19/24 23:33 Oxygen Delivery Me thod Room Air 07/19/24 21:30 MDM - Fall Medical Decision Making 78-year-old male presented to the emergency department for evaluation after he lost his balance fell and hit the back of his head. The skin tear on the back of his head was small enough not requiring repair. Due to his age and risk factors head CT and C-spine CT were conducted. Both were normal. An incidental finding concerning for pneumothorax led to a chest CT that was otherwise normal. Patient's vital signs were stable throughout his stay. Encouraged patient to follow-up with his primary care physician after this emergency room visit. Return precautions were discussed and the patient was discharged home in good condition. Lab Data Radiology Impressions Cervical Spine CT 07/19/24 21:45 IMPRESSION: 1. No acute osseous abnormalities of the cervical spine. 2. Suspected trace left apical pneumothorax. ADDENDUM: 07/19/24 [id number] THIS REPORT CONTAINS FINDINGS THAT MAY BE CRITICAL TO PATIENT CARE. The findings were verbally communicated via telephone conference with WILLIAM ALAS at 10:25 PM CDT on 07/19/2024. The findings were acknowledged and understood. Head CT 07/19/24 21:45 IMPRESSION: No acute intracranial abnormality. Chest CT 07/19/24 22:29 IMPRESSION: 1. Negative for acute chest pathology. 2. The perceived left pneumothorax was most likely artifact from the left shoulder arthroplasty hardware. All radiology interpretation(s) finalized by discharge Discharge Plan Discharge Patient Disposition: Home Clinical Impression: Fall against object Condition: Stable Prescriptions: No Action tamsulosin 0.4 mg capsule 0.4 mg PO BEDTIME nitroglycerin [Nitrostat] 0.4 mg tablet, sublingual 0.4 mg sublingual Q5M PRN (Reason: chest pain) Qty: 25 3RF Rx Instructions: do not exceed 3 doses per episode potassium chloride 10 mEq capsule, extended release 60 meq PO BID Breztri Aerosphere 160-9-4.8 mcg/actuation HFA aerosol inhaler 2 inh inhalation BID oxycodone 15 mg Tablet 15 mg PO Q6H PRN (Reason: Pain) bupropion HCl 300 mg tablet extended release 24 hr 300 mg PO QAM albuterol sulfate 2.5 mg /3 mL (0.083 %) solution for nebulization 2.5 mg inhalation Q4H PRN (Reason: Shortness Of Breath) aspirin 81 mg Tablet,Delayed Release (Dr/Ec) 81 mg PO QAM acetaminophen 650 mg Tablet Extended Release 650 mg PO Q6H PRN (Reason: Pain) zolpidem [Ambien CR] 6.25 mg Tablet,Ext Release Multiphase 6.25 mg PO BEDTIME magnesium oxide 400 mg magnesium Tablet 400 mg PO QAM propafenone 150 mg Tablet 150 mg PO TID Qty: 90 0RF furosemide 40 mg tablet 40 mg PO DAILY Rx Instructions: 40 mg orally albuterol sulfate 90 mcg/actuation Aero Powdr Breath Act W/Sensor 2 inh INHALATION QID omeprazole 20 mg capsule,delayed release(DR/EC) 20 mg PO QAM cholecalciferol (vitamin D3) [Vitamin D3] 25 mcg (1,000 unit) Tablet 25 mcg PO DAILY PreserVision AREDS-2 250-90-40-1 mg Capsule 1 tab PO BID Discharge Orders: Discharge ED (Routine); Ordered 07/19/24 Ordered By: William Law Referrals: Igor Aguilera [Primary Care Provider, Family Practice] Discharge Diet: Advance as tolerated Discharge Activity: Resume usual activity Patient Instructions: Opioid Safety, Pain Management Activity Restrictions/Additional Instructions: Please return to the emergency department with any new or worsening symptoms Print Language: Bengali Coding Level of Care Code ED Sales Donor Recruitment Representative for Zahraa Julio
--- NOTE | 2024-07-19 22:29 | CTR_ITS ---
PROCEDURE INFORMATION: Exam: CT Chest Without Contrast; Diagnostic Exam date and time: 07/19/2024 10:41 PM Age: 78 years old Clinical indication: Abnormal findings; Other: Pneumo seen on c-spine CT; Additional info: Incidental pneumothorax potentially seen on previous CT TECHNIQUE: Imaging protocol: Diagnostic computed tomography of the chest without contrast. Radiation optimization: All CT scans at this facility use at least one of these dose optimization techniques: automated exposure control; mA and/or kV adjustment per patient size (includes targeted exams where dose is matched to clinical indication); or iterative reconstruction. COMPARISON: 1. CR (CHEST, ) 06/18/2024 8:[address] cervical spin wo con* [id number] 07/19/2024 9:58 PM RADIATION DOSE METRICS: Total DLP (mGy-cm): 685.3 FINDINGS: Lungs: Unremarkable. No consolidation. No masses. Pleural spaces: Unremarkable. No pneumothorax. No pleural effusion. Heart: Multichamber cardiac dilation. Negative for pericardial effusion. Coronary arteries: Small volume coronary artery calcifications. Esophagus: Unremarkable thoracic esophagus. Lymph nodes: Unremarkable. No enlarged lymph nodes. Vasculature: Unremarkable. No aortic aneurysm. Kidneys: There is asymmetric cortical atrophy of the kidneys significantly worse left than right. Tiny nonobstructing kidney stone on the left. Bones/joints: Unremarkable. No acute fracture. Left shoulder reverse arthroplasty hardware is partially included in the field of view. Soft tissues: Unremarkable. CT/CT chest wo con [id number] IMPRESSION: 1. Negative for acute chest pathology. 2. The perceived left pneumothorax was most likely artifact from the left shoulder arthroplasty hardware.
[2024-07-19 23:33] VITALS: BP 140/98; PULSE 89; RESP 16; O2SAT 91
== END 2024-07-19 23:45 | disposition home or self-care (01) ==
PROVIDERS: Emergency Provider General Practice; PCP Family Medicine
DX: S01.91XA Laceration without foreign body of unspecified part of head, initial encounter (principal); W01.10XA Fall on same level from slipping, tripping and stumbling with subsequent striking against unspecified object, initial encounter; Z79.82 Long term (current) use of aspirin; Z87.891 Personal history of nicotine dependence; Z95.1 Presence of aortocoronary bypass graft; Z86.73 Personal history of transient ischemic attack (TIA), and cerebral infarction without residual deficits; E78.5 Hyperlipidemia, unspecified; I13.0 Hypertensive heart and chronic kidney disease with heart failure and stage 1 through stage 4 chronic kidney disease, or unspecified chronic kidney disease; N18.9 Chronic kidney disease, unspecified; I50.9 Heart failure, unspecified
CPT/HCPCS: 70450; 71250; 72125; 99284

== ENCOUNTER 2024-08-07 11:39 | Emergency (ER) | payer MEDICARE, SELFPAY ==
[2024-08-07 11:41] VITALS: BP 122/85; PULSE 91; RESP 25; TEMP 36.9; O2SAT 91; BMI 34.0
--- NOTE | 2024-08-07 11:47 | PC.NURSE ---
pt requesting [facility] as [facility], this nurse educated pharmacy not open until tomorrow; pt verbalized understanding, denies wanting to switch to [facility]. pt SOB on room air, 91; does have @2L NC PRN at home; this nurse applied 2L NC; o2 increased to 95%
--- NOTE | 2024-08-07 11:51 | XRR_ITS ---
PROCEDURE INFORMATION: Exam: XR Right Shoulder Exam date and time: 08/07/2024 12:17 PM Age: 78 years old Clinical indication: Shoulder; Right; RT upper ext pain post fall; Limited rom TECHNIQUE: Imaging protocol: Radiologic exam of the right shoulder. Views: 2 or more views. COMPARISON: CR (UP EX, ) 08/07/2024 12:17 PM FINDINGS: Bones/joints: Comminuted, displaced, and slightly impacted fracture right humeral head and neck. Moderate arthritis. Otherwise, unremarkable. Soft tissues: Normal. XR/XR shoulder RT min 2V* [id number] IMPRESSION: Comminuted, displaced, and slightly impacted fracture right humeral head and neck.
--- NOTE | 2024-08-07 11:51 | XRR_ITS ---
PROCEDURE INFORMATION: Exam: XR Right Humerus Exam date and time: 08/07/2024 12:17 PM Age: 78 years old Clinical indication: Shoulder; Right; RT upper ext pain post fall; Limited rom TECHNIQUE: Imaging protocol: Radiologic exam of the right humerus. Views: 2 or more views. COMPARISON: CR (CHEST, ) 08/07/2024 12:17 PM FINDINGS: Bones/joints: Comminuted, displaced, and slightly impacted fracture right humeral head and neck. Otherwise, unremarkable. Soft tissues: Normal. XR/[place] [id number] IMPRESSION: Comminuted, displaced, and slightly impacted fracture right humeral head and neck.
--- NOTE | 2024-08-07 11:52 | W.ED.FALL ---
HPI - Fall General: Chief Complaint: Fall Stated Complaint: right shoulder pain s/p fall Time Seen by Provider: 08/07/24 11:40 Source: patient and EMS Mode of arrival: EMS Limitations: no limitations History of Present Illness: 78-year-old male states that he tripped and fell today at home and fell on his right side states he did land on the shoulder has pain over his humerus and right shoulder worse with movement denies any wrist or elbow pain denies hitting his head or neck Associated symptoms-after fall: Denies abdominal pain, chest pain, headache(s) or neck pain Related Data Home Medications ?Medication ?Instructions ?Recorded ?Confirmed tamsulosin 0.4 mg capsule 0.4 mg PO BEDTIME 05/04/19 06/15/24 oxycodone 15 mg tablet 15 mg PO Q6H PRN Pain 08/03/20 06/15/24 omeprazole 20 mg capsule,delayed 20 mg PO QAM 12/01/22 06/15/24 release cholecalciferol (vitamin D3) 25 25 mcg PO DAILY 02/01/23 06/15/24 mcg (1,000 unit) tablet (Vitamin D3) vit C 250 mg-vit E 90 mg-zinc 40 1 tab PO BID 02/01/23 06/15/24 mg-copper 1 [id number] capsule (PreserVision AREDS-2) acetaminophen 650 mg 650 mg PO Q6H PRN Pain 06/24/23 06/15/24 tablet,extended release albuterol sulfate 2.5 mg/3 mL 2.5 mg inhalation Q4H PRN 06/24/23 06/15/24 (0.083 %) solution for nebulization Shortness Of Breath aspirin 81 mg tablet,delayed 81 mg PO QAM 06/24/23 06/15/24 release Held on 06/21/24. Instructions: Resume on 06/24/24. bupropion HCl 300 mg 24 hr tablet, 300 mg PO QAM 06/24/23 06/15/24 extended release magnesium oxide 400 mg PO QAM 06/24/23 06/15/24 zolpidem 6.25 mg tablet,extended 6.25 mg PO BEDTIME 06/24/23 06/15/24 release,multiphase (Ambien CR) potassium chloride 10 mEq 60 meq PO BID 10/08/23 06/15/24 capsule,extended release albuterol sulfate 90 mcg/actuation 2 inh inhalation QID 02/15/24 06/15/24 breath activated powder inhaler,sensor furosemide 40 mg tablet 40 mg PO DAILY 02/15/24 06/15/24 budesonide 160 mcg-glycopyr 9 2 inh inhalation BID 04/11/24 06/15/24 mcg-formot 4.8 mcg/actuation HFA inhaler (Breztri Aerosphere) Previous Rx's ?Medication ?Instructions ?Recorded nitroglycerin 0.4 mg sublingual 0.4 mg sublingual Q5M PRN chest 11/06/21 tablet (Nitrostat) pain #25 tabs propafenone 150 mg tablet 150 mg PO TID #90 tabs 07/03/23 Allergies Allergy/AdvReac Type Severity Reaction Status Date / Time cefdinir (From Omnicef) Allergy Intermediate ADR-Vomitin Verified 07/19/24 21:34 g pentazocine (From Talwin) Allergy Unknown Unknown Verified 07/19/24 21:34 amiodarone AdvReac Intermediate Unknown Verified 07/19/24 21:34 Review of Systems Const: Denies: fever(s), chills, body aches or change in appetite ENMT: Denies: throat pain or dental pain Card: Denies: chest pain Resp: Denies: dyspnea GI: Denies: abdominal pain, nausea, vomiting or diarrhea : Denies: dysuria Musc: Reports: extremity pain; Denies: neck pain or back pain Skin/Breast: Denies: rash Neuro: Denies: headache(s) PFSH ED PFSH: Medical History Atrial fibrillation Not anticoagulated due to ICH Dyslipidemia Subdural hematoma BPH (benign prostatic hyperplasia) Lower urinary tract symptoms (LUTS) Arthritis Chronic migraine Chronic kidney disease History of TIA (transient ischemic attack) ASHD (arteriosclerotic heart disease) CHF (congestive heart failure) HTN (hypertension) Surgical History Hx of CABG H/O craniotomy Previous back surgery S/P knee replacement S/P shoulder surgery S/P carpal tunnel release Family History Mother , AT AGE 76 BRAIN ANEURYSM No problems noted. Father , AT AGE 84 DRAFTER GEOPHYSICAL,HEART DISEASE Cancer PROSTATE CAD (coronary artery disease) Social History Smoking and tobacco/nicotine status: former use of tobacco/nicotine Alcohol intake: unknown Substance/Drug Use: unknown Adopted: No Caregiver/support person: No Lives independently: Yes Marital status: / Current occupational status: retired Current gender identity: Male Physical Exam Const: COMMON NORMALS: no acute distress, patient oriented x3 and healthy appearing HENMT: COMMON NORMALS: normocephalic and atraumatic HEAD & SCALP: normocephalic and atraumatic Eye: COMMON NORMALS: conjunctivae normal CONJUNCTIVA: Yes conjunctivae normal Neck/C-Spine: COMMON NORMALS: full ROM and supple Chest: COMMONS NORMALS: normal inspection of the chest Resp: COMMON NORMALS: normal respiratory effort Cardio: COMMON NORMALS: regular rate, regular rhythm and No murmurs present (Cardio) RATE: regular rate RHYTHM: regular rhythm Extremity: NARRATIVE EXTREMITY EXAM: Tenderness noted to right elbow and shoulder distal pulses sensation intact no pain at the wrist or elbow Neuro: COMMON NORMALS: patient oriented x3, moves all extremities and no focal motor deficits Psych: COMMON NORMALS: mental status grossly normal, Normal thought process present and cooperative THOUGHT PROCESS: Normal thought process present Skin: COMMON NORMALS: no rashes or lesions noted and no wounds GENERAL SKIN EXAM: no rashes or lesions noted Course Vital Signs: Vital signs: Vital Signs Temperature 98.5 F 08/07/24 11:41 Pulse Rate 91 08/07/24 11:41 Respiratory Rate 25 H 08/07/24 11:41 Blood Pressure 122/85 08/07/24 11:41 Pulse Oximetry 91 08/07/24 11:41 Oxygen Delivery Me thod Room Air 08/07/24 11:41 MDM - Fall Medical Decision Making Patient presents for proximal humerus fracture will place in a sling and have follow-up with orthopedics. Medical Records I reviewed the patient's medical records. XR interpretation done by ED provider, pending radiology final review ED provider radiology interpretation(s): X-ray right shoulder proximal humerus fracture Discharge Plan Discharge Patient Disposition: Home Clinical Impression: Closed fracture of proximal end of right humerus Condition: Stable Prescriptions: No Action tamsulosin 0.4 mg capsule 0.4 mg PO BEDTIME nitroglycerin [Nitrostat] 0.4 mg tablet, sublingual 0.4 mg sublingual Q5M PRN (Reason: chest pain) Qty: 25 3RF Rx Instructions: do not exceed 3 doses per episode potassium chloride 10 mEq capsule, extended release 60 meq PO BID Breztri Aerosphere 160-9-4.8 mcg/actuation HFA aerosol inhaler 2 inh inhalation BID oxycodone 15 mg Tablet 15 mg PO Q6H PRN (Reason: Pain) bupropion HCl 300 mg tablet extended release 24 hr 300 mg PO QAM albuterol sulfate 2.5 mg /3 mL (0.083 %) solution for nebulization 2.5 mg inhalation Q4H PRN (Reason: Shortness Of Breath) aspirin 81 mg Tablet,Delayed Release (Dr/Ec) 81 mg PO QAM acetaminophen 650 mg Tablet Extended Release 650 mg PO Q6H PRN (Reason: Pain) zolpidem [Ambien CR] 6.25 mg Tablet,Ext Release Multiphase 6.25 mg PO BEDTIME magnesium oxide 400 mg magnesium Tablet 400 mg PO QAM propafenone 150 mg Tablet 150 mg PO TID Qty: 90 0RF furosemide 40 mg tablet 40 mg PO DAILY Rx Instructions: 40 mg orally albuterol sulfate 90 mcg/actuation Aero Powdr Breath Act W/Sensor 2 inh INHALATION QID omeprazole 20 mg capsule,delayed release(DR/EC) 20 mg PO QAM cholecalciferol (vitamin D3) [Vitamin D3] 25 mcg (1,000 unit) Tablet 25 mcg PO DAILY PreserVision AREDS-2 250-90-40-1 mg Capsule 1 tab PO BID Discharge Orders: Discharge ED (Routine); Ordered 08/07/24 Ordered By: Elsy Beyer Referrals: Gabriel Rosas MD [Physician, Orthopedics] - 1-3 days Igor Aguilera [Primary Care Provider, Family Practice] Discharge Diet: Advance as tolerated Discharge Activity: Resume usual activity Patient Instructions: Arm Fracture in Adults (ED) Print Language: Sierra Leonean Coding Level of Care Code ED Canceling Machine Operator for Zahraa Julio
[2024-08-07] MEDS: HYDROcodone-acetaminophen 5-325 mg Tablet 1 TAB PO (12:05)
[2024-08-07 13:02] VITALS: BP 126/87; PULSE 90; RESP 18; O2SAT 93
[2024-08-07 13:27] VITALS: BP 130/81; PULSE 87; O2SAT 95
--- NOTE | 2024-08-08 07:35 | DCPLANNER ---
messaged ortho for er f/u
== END 2024-08-07 13:28 | disposition home or self-care (01) ==
PROVIDERS: Emergency Provider Emergency Medicine; PCP Family Medicine
DX: S42.401A Unspecified fracture of lower end of right humerus, initial encounter for closed fracture (principal); Z79.82 Long term (current) use of aspirin; Z87.891 Personal history of nicotine dependence; Z86.73 Personal history of transient ischemic attack (TIA), and cerebral infarction without residual deficits; E78.5 Hyperlipidemia, unspecified; I11.0 Hypertensive heart disease with heart failure; I50.9 Heart failure, unspecified; W19.XXXA Unspecified fall, initial encounter
CPT/HCPCS: 73030; 73060; 99283; J9999

== ENCOUNTER → 2024-08-10 09:55 | Outpatient (BNVA) | payer MEDICARE, SELFPAY | PROVIDERS: PCP Family Medicine; Visit Provider Podiatrist Foot & Ankle Surgery | DX: I73.9 Peripheral vascular disease, unspecified (principal); L60.3 Nail dystrophy; L84 Corns and callosities; M72.2 Plantar fascial fibromatosis | CPT/HCPCS: 11056; 11721; 99213 ==

== ENCOUNTER → 2024-08-11 08:48 | Outpatient (BNVA) | payer MEDICARE, SELFPAY | PROVIDERS: PCP Family Medicine; Visit Provider Orthopaedic Surgery | DX: S42.201A Unspecified fracture of upper end of right humerus, initial encounter for closed fracture (principal); W18.39XA Other fall on same level, initial encounter | CPT/HCPCS: 73030; 99204 ==

== ENCOUNTER → 2024-08-23 09:51 | Outpatient (BNVA) | payer MEDICARE, SELFPAY | PROVIDERS: PCP Family Medicine; Visit Provider Orthopaedic Surgery | DX: S42.214D Unspecified nondisplaced fracture of surgical neck of right humerus, subsequent encounter for fracture with routine healing (principal); X58.XXXD Exposure to other specified factors, subsequent encounter | CPT/HCPCS: 73030; 99213 ==

== ENCOUNTER → 2024-09-13 09:29 | Outpatient (BNVA) | payer MEDICARE, SELFPAY | PROVIDERS: PCP Family Medicine; Visit Provider Podiatrist Foot & Ankle Surgery | DX: I73.9 Peripheral vascular disease, unspecified (principal); L60.3 Nail dystrophy; L84 Corns and callosities; M72.2 Plantar fascial fibromatosis | CPT/HCPCS: 11055; 11721 ==

== ENCOUNTER → 2024-09-23 09:19 | Outpatient (BNVA) | payer MEDICARE, SELFPAY | PROVIDERS: PCP Family Medicine; Visit Provider Orthopaedic Surgery | DX: M25.511 Pain in right shoulder (principal); S42.294D Other nondisplaced fracture of upper end of right humerus, subsequent encounter for fracture with routine healing; X58.XXXD Exposure to other specified factors, subsequent encounter | CPT/HCPCS: 73030; 99213 ==

== ENCOUNTER → 2024-10-10 14:51 | Outpatient (BNVA) | payer MEDICARE, SELFPAY | PROVIDERS: PCP Family Medicine; Visit Provider Internal Medicine Cardiovascular Disease | DX: I48.91 Unspecified atrial fibrillation (principal); I25.10 Atherosclerotic heart disease of native coronary artery without angina pectoris; Z87.891 Personal history of nicotine dependence; I13.0 Hypertensive heart and chronic kidney disease with heart failure and stage 1 through stage 4 chronic kidney disease, or unspecified chronic kidney disease; I50.9 Heart failure, unspecified; N18.9 Chronic kidney disease, unspecified | CPT/HCPCS: 99214 ==

== ENCOUNTER → 2024-10-14 07:51 | Outpatient (BNVA) | payer MEDICARE, SELFPAY | PROVIDERS: PCP Family Medicine; Visit Provider Orthopaedic Surgery | DX: S42.294D Other nondisplaced fracture of upper end of right humerus, subsequent encounter for fracture with routine healing (principal); X58.XXXD Exposure to other specified factors, subsequent encounter | CPT/HCPCS: 73030; 99213 ==

== ENCOUNTER → 2024-11-02 16:11 | Outpatient (BNVA) | payer MEDICARE, SELFPAY | PROVIDERS: PCP Family Medicine; Visit Provider Podiatrist Foot & Ankle Surgery | DX: E11.621 Type 2 diabetes mellitus with foot ulcer (principal); L97.509 Non-pressure chronic ulcer of other part of unspecified foot with unspecified severity | CPT/HCPCS: 87070; 87075; 87205 ==

== ENCOUNTER → 2024-11-09 09:35 | Outpatient (BNVA) | payer MEDICARE, SELFPAY | PROVIDERS: PCP Family Medicine; Visit Provider Podiatrist Foot & Ankle Surgery | DX: I73.9 Peripheral vascular disease, unspecified (principal); L60.3 Nail dystrophy; L84 Corns and callosities; M72.2 Plantar fascial fibromatosis | CPT/HCPCS: 99213 ==

== ENCOUNTER → 2024-11-17 09:30 | Outpatient (BNVA) | payer MEDICARE, SELFPAY | PROVIDERS: PCP Family Medicine; Visit Provider Orthopaedic Surgery | DX: S42.294D Other nondisplaced fracture of upper end of right humerus, subsequent encounter for fracture with routine healing (principal); X58.XXXD Exposure to other specified factors, subsequent encounter | CPT/HCPCS: 99213 ==

== ENCOUNTER 2024-12-26 13:48 | Outpatient (RCR) | payer MEDICARE, SELFPAY | END 2024-12-30 23:59 | disposition home or self-care (01) | LOC: SOT 13:48 | PROVIDERS: Visit Provider Family Medicine | DX: Z91.81 History of falling (principal) | CPT/HCPCS: 97167 ==

== ENCOUNTER 2025-01-05 14:19 | Emergency (ER) | payer MEDICARE, SELFPAY ==
[2025-01-05] VITALS (14 sets, daily range): BP systolic 86–139; BP diastolic 53–101; PULSE 73–149; RESP 18; TEMP 36.7; O2SAT 81–100; BMI 35.9
--- NOTE | 2025-01-05 14:24 | XRR_ITS ---
PROCEDURE INFORMATION: Exam: XR Chest Exam date and time: 01/05/2025 3:10 PM Age: 79 years old Clinical indication: Shortness of breath TECHNIQUE: Imaging protocol: Radiologic exam of the chest. Views: 1 view. COMPARISON: CT chest con [id number] 07/19/2024 10:41 PM FINDINGS: Lungs: There are low lung volumes with bronchovascular crowding. No visible acute pulmonary process. Pleural spaces: Unremarkable. No gross pleural effusion. No pneumothorax. Heart/Mediastinum: Unremarkable. No cardiomegaly. Bones/joints: Unremarkable. XR/XR chest 1V portable [id number] IMPRESSION: No acute cardiopulmonary process.
--- NOTE | 2025-01-05 14:24 | W.ED.SOB ---
HPI - SOB/Dyspnea General: Chief Complaint: Shortness of Breath/Dyspnea Stated Complaint: resp distress Time Seen by Provider: 01/05/25 14:20 History of Present Illness: HPI Narrative: 79-year-old man with a history of COPD, chronic hypoxemic respiratory failure on 2 L nasal cannula at all times, atrial fibrillation, history of subdural hematoma, migraines, chronic kidney disease, TIA, coronary artery disease, hypertension and congestive heart failure who presents to the emergency room by ambulance with shortness of breath. He says he went to the doctor this morning for biopsy when he got home he was very short of breath. Could not breathe. He is on 2 L baseline but daughter turned him up to 4 L because O2 sats were low. He has some slight retractions and increased work of breathing on presentation. He is 100% on 5 L nasal cannula Related Data Home Medications ?Medication ?Instructions ?Recorded ?Confirmed tamsulosin 0.4 mg capsule 0.4 mg PO BEDTIME 05/04/19 11/17/24 oxycodone 15 mg tablet 15 mg PO Q6H PRN Pain 08/03/20 11/17/24 omeprazole 20 mg capsule,delayed 20 mg PO QAM 12/01/22 11/17/24 release cholecalciferol (vitamin D3) 25 25 mcg PO DAILY 02/01/23 11/17/24 mcg (1,000 unit) tablet (Vitamin D3) vit C 250 mg-vit E 90 mg-zinc 40 1 tab PO BID 02/01/23 11/17/24 mg-copper 1 [id number] capsule (PreserVision AREDS-2) acetaminophen 650 mg 650 mg PO Q6H PRN Pain 06/24/23 11/17/24 tablet,extended release albuterol sulfate 2.5 mg/3 mL 2.5 mg inhalation Q4H PRN 06/24/23 11/17/24 (0.083 %) solution for nebulization Shortness Of Breath aspirin 81 mg tablet,delayed 81 mg PO QAM 06/24/23 11/17/24 release Held on 06/21/24. Instructions: Resume on 06/24/24. bupropion HCl 300 mg 24 hr tablet, 300 mg PO QAM 06/24/23 11/17/24 extended release magnesium oxide 400 mg PO QAM 06/24/23 11/17/24 zolpidem 6.25 mg tablet,extended 6.25 mg PO BEDTIME 06/24/23 11/17/24 release,multiphase (Ambien CR) potassium chloride 10 mEq 60 meq PO BID 10/08/23 11/17/24 capsule,extended release albuterol sulfate 90 mcg/actuation 2 inh inhalation QID 02/15/24 11/17/24 breath activated powder inhaler,sensor furosemide 40 mg tablet 40 mg PO DAILY 02/15/24 11/17/24 budesonide 160 mcg-glycopyr 9 2 inh inhalation BID 04/11/24 11/17/24 mcg-formot 4.8 mcg/actuation HFA inhaler (Breztri Aerosphere) rizatriptan 10 mg disintegrating mg PO PRN 09/23/24 11/17/24 tablet duloxetine 60 mg capsule,delayed mg PO 10/14/24 11/17/24 release Previous Rx's ?Medication ?Instructions ?Recorded nitroglycerin 0.4 mg sublingual 0.4 mg sublingual Q5M PRN chest 11/06/21 tablet (Nitrostat) pain #25 tabs propafenone 150 mg tablet 150 mg PO TID #90 tabs 07/03/23 valsartan 160 mg tablet 160 mg PO DAILY #90 tabs 10/10/24 Allergies Allergy/AdvReac Type Severity Reaction Status Date / Time cefdinir (From Omnicef) Allergy Intermediate ADR-Vomitin Verified 11/17/24 09:49 g pentazocine (From Talwin) Allergy Unknown Unknown Verified 11/17/24 09:49 amiodarone AdvReac Intermediate Unknown Verified 11/17/24 09:49 Review of Systems Narrative: Constitutional symptoms: Negative except as documented in HPI. Skin symptoms: Negative except as documented in HPI. Eye symptoms: Negative except as documented in HPI. ENMT symptoms: Negative except as documented in HPI. Respiratory symptoms: Negative except as documented in HPI. Cardiovascular symptoms: Negative except as documented in HPI. Gastrointestinal symptoms: Negative except as documented in HPI. Genitourinary symptoms: Negative except as documented in HPI. Musculoskeletal symptoms: Negative except as documented in HPI. Neurologic symptoms: Negative except as documented in HPI. Psychiatric symptoms: Negative except as documented in HPI. Endocrine symptoms: Negative except as documented in HPI. PFSH ED PFSH: Medical History (Updated 01/05/25 @ 19:45 by Martha Early MD) Atrial fibrillation Not anticoagulated due to ICH Dyslipidemia Subdural hematoma BPH (benign prostatic hyperplasia) Lower urinary tract symptoms (LUTS) Arthritis Chronic migraine Chronic kidney disease History of TIA (transient ischemic attack) ASHD (arteriosclerotic heart disease) CHF (congestive heart failure) HTN (hypertension) Surgical History Hx of CABG H/O craniotomy Previous back surgery S/P knee replacement S/P shoulder surgery S/P carpal tunnel release Family History Mother , AT AGE 76 BRAIN ANEURYSM No problems noted. Father , AT AGE 84 SCALES INSPECTOR,HEART DISEASE Cancer PROSTATE CAD (coronary artery disease) Social History Smoking and tobacco/nicotine status: former use of tobacco/nicotine Alcohol intake: unknown Substance/Drug Use: unknown Adopted: No Caregiver/support person: No Lives independently: Yes Marital status: / Current occupational status: retired Current gender identity: Male Physical Exam Narrative: EXAM NARRATIVE: General: Alert, no acute distress. Skin: Warm, dry. Head: Normocephalic, atraumatic. Neck: Supple, trachea midline. Eye: Extraocular movements are intact. Ears, nose, mouth and throat: Oral mucosa moist. Cardiovascular: Regular rate and rhythm, Normal peripheral perfusion. Respiratory: coarse, scattered wheeze, mild increased wob. tachypnea, breath sounds are equal, Symmetrical chest wall expansion. Gastrointestinal: Soft, Nontender, Non distended Musculoskeletal: Normal ROM, no deformity. Neurological: Alert and oriented, No focal neurological deficit observed. Psychiatric: Cooperative, appropriate mood & affect. Course Vital Signs: Vital signs: Vital Signs Temperature 98.0 F 01/05/25 14:21 Pulse Rate 82 01/05/25 19:00 Respiratory Rate 18 01/05/25 14:21 Blood Pressure 121/85 01/05/25 19:00 Pulse Oximetry 90 01/05/25 17:00 Oxygen Delivery Me thod Nasal Cannula 01/05/25 17:00 Oxygen Flow Rate 2 01/05/25 17:00 MDM - SOB/Dyspnea Medical Decision Making Medical decision making: Patient's reason for coming to the emergency room shortness of breath Social determinants patient is elderly and retired. I reviewed the patient's medical record. 79-year-old man with a history of COPD, chronic hypoxemic respiratory failure on 2 L nasal cannula at all times, atrial fibrillation, history of subdural hematoma, migraines, chronic kidney disease, TIA, coronary artery disease, hypertension and congestive heart failure I reviewed the patient's current home meds Patient does not appear to be on any anticoagulation Differential diagnosis for patient with shortness of breath includes but is not limited to and based on the above HPI, review of systems and physical exam: Pneumonia. Bronchitis. Asthma or COPD with acute exacerbation. Acute coronary syndrome / [place]. Pulmonary embolism. Anxiety. Congestive heart failure. Viral infections including influenza and Covid-19. Atrial fibrillation. Anxiety. Pleural effusion. Pneumothorax. Orders placed to evaluate differential diagnosis based on the above differential, HPI and physical exam EKG: Time 1427. Rate 82. Atrial fibrillation with controlled rate, No ST-T changes, no ectopy, This was reviewed and interpreted by myself the ER physician at 1433. Chest x-ray: No acute process. No infiltrate. No pneumothorax. This was reviewed and interpreted by myself the emergency room physician. I also reviewed the radiology report. Lab Review: Laboratory results were reviewed and interpreted by myself the emergency room physician. Mild leukocytosis. No anemia. Mild thrombocytopenia. Acute on chronic renal insufficiency with a BUN/creatinine of 47 and 1.8. Hyperkalemia with a potassium of 6.6. Flu COVID and RSV are negative. Lactic acid is elevated at 3.5. CT head: Some changes around the wound but no obvious abscess. This was reviewed and interpreted by myself the emergency room physician. I also reviewed the radiology report. CT of the chest, some atelectasis but nothing acute. This was reviewed and interpreted by myself the emergency room physician. I also reviewed the radiology report. Assessment of risk: High risk patient Level of risk: High risk patient. Multiple comorbidities. Hospitalization considerations: Patient is being admitted but has to be transferred secondary to ENT possibility of being needed. Reexamination: Patient has remained alert. Lessening O2 requirements. No cardiac dysrhythmias. No altered mental status. Consultation: I spoke with Dr. Baumann who is the patient's ENT here. He is out of town but he recommends the patient be transferred to a facility where ENT might be available if this infection is the cause of his sepsis. Consultation: I spoke with ENT at [facility] in [place]. They do not feel that this is the source of infection but if needed they will consult. Consultation: I spoke with Dr. Cordero the hospitalist with [facility] in [place] and he accepts the patient in transfer. Assessment and plan: COPD with acute exacerbation Acute on chronic hypoxemic respiratory failure Acute on chronic renal failure Possible sepsis Wound infection of the right methodist ? IV Solu-Medrol. Updrafts. -2.5 L normal saline bolus. Fluid volumes based on ideal body weight. -Broad-spectrum antibiotics were administered. Meropenem and Zyvox -Sepsis quality measures. -Lactic acid with a reflex was ordered. -Blood cultures were ordered. ?I reevaluated the patient's volume status after sepsis fluids were given. -I discussed the patient with the accepting physician on-call. - Discussed findings and plan with patient. Answered any questions. - All laboratory values were reviewed and interpreted personally by myself, the ER physician - All imaging was reviewed and interpreted personally by myself, the ER physician. - Evaluation and treatment of this problem were appropriate in the emergency setting Critical Care: -I spent a total of 66 minutes of critical care time managing the patient, independent of any other practitioner. -The time involved in the performance of separately reportable procedures was not counted towards critical care time. Lab Data 01/05/25 15:11 01/05/25 17:47 Labs/Radiology: Radiology Impressions Chest X-Ray 01/05/25 14:24 IMPRESSION: No acute cardiopulmonary process. Head CT 01/05/25 16:49 IMPRESSION: No acute intracranial hemorrhage. Right scalp skin defects above the ear with associated scalp fluid attenuation and small nonspecific hyperattenuating foci. Volume loss intracranially chronic microangiopathy. Left craniotomy changes with chronic dural thickening/fluid. Chest CT 01/05/25 17:11 IMPRESSION: Atelectatic changes in the lung bases with no focal consolidation. Laboratory Results WBC 13.34 10^3/uL (3.29-11.43) H 01/05/25 15:11 RBC 4.72 10^6/uL (3.85-5.65) 01/05/25 15:11 Hgb 14.90 g/dL (11.27-16.99) 01/05/25 15:11 Hct 48.1 % (37-53) 01/05/25 15:11 MCV 101.9 fl (82-101) H 01/05/25 15:11 MCH 31.6 pg (27-33) 01/05/25 15:11 MCHC 31.0 g/dL (30-55) 01/05/25 15:11 RDW 14.1 % (12.1-15.1) 01/05/25 15:11 Plt Count 128 10^3/cmm (157-399) L 01/05/25 15:11 MPV 10.6 fL (7.4-10.4) H 01/05/25 15:11 Neut % (Auto) 83.1 % 01/05/25 15:11 Lymph % (Auto) 9.2 % 01/05/25 15:11 [place] % (Auto) 5.8 % 01/05/25 15:11 Eos % (Auto) 0.1 % 01/05/25 15:11 Baso % (Auto) 0.2 % 01/05/25 15:11 Neut # (Auto) 11.08 10^3/uL (1.8-7.7) H 01/05/25 15:11 Lymph # (Auto) 1.2 10^3/uL (0.8-4.8) 01/05/25 15:11 [place] # (Auto) 0.8 10^3/uL (0.2-0.9) 01/05/25 15:11 Eos # (Auto) 0.0 10^3/uL (0.0-0.8) 01/05/25 15:11 Baso # (Auto) 0.0 10^3/uL (0.0-0.1) 01/05/25 15:11 Nucleated RBC % (auto) 0 % 01/05/25 15:11 Nucleated RBCs # 0.0 /100WBC 01/05/25 15:11 Specimen Type Arterial 01/05/25 14:33 Sample Site Radial, left 01/05/25 14:33 ABG pH 7.40 (7.35-7.45) 01/05/25 14:33 ABG pCO2 50.1 mmHg (35-45) H 01/05/25 14:33 ABG pO2 129.0 mmHg (80.0-100.0) H 01/05/25 14:33 ABG HCO3 31.0 mmol/L (22-26) H 01/05/25 14:33 ABG O2 Saturation 99.1 01/05/25 14:33 ABG Base Excess 5.0 mmol/L (-2.0-2.0) H 01/05/25 14:33 Dain Test Pos 01/05/25 14:33 A-a O2 Gradient Not Reportable 01/05/25 14:33 Hematocrit 45.3 % (42-52) 01/05/25 14:33 Hgb O2 Saturation 98.6 % (95-100) 01/05/25 14:33 Carboxyhemoglobin 0.6 %THgb (0.4-20.1) 01/05/25 14:33 Methemoglobin < 0.0 % (0.4-1.5) L 01/05/25 14:33 Total Hemoglobin 14.8 g/dL (14-18) 01/05/25 14:33 Sodium 136.0 mmol/L (131-143) 01/05/25 14:33 Potassium 6.1 mmol/L (3.5-5.0) H 01/05/25 14:33 Glucose 151.0 mg/dL (70-115) H 01/05/25 14:33 Ionized Calcium 1.3 mmol/L (1.1-1.4) 01/05/25 14:33 O2 Delivery Device None 01/05/25 14:33 O2 Liters/Min 7.0 % 01/05/25 14:33 [place]ff[place] Curtain Machine Tender ID [place] 01/05/25 14:33 Sodium 138 mmol/L (136-145) 01/05/25 15:11 Potassium 6.2 mmol/L (3.5-5.1) H 01/05/25 17:47 Chloride 98 mmol/L (98-107) 01/05/25 15:11 Carbon Dioxide 28 mmol/L (22-29) 01/05/25 15:11 Anion Gap 20.6 (5-19) H 01/05/25 15:11 BUN 47 mg/dL (8-23) H 01/05/25 15:11 Creatinine 1.8 mg/dL (0.7-1.2) H 01/05/25 15:11 GFR Calculation Not Reportable 01/05/25 15:11 Glucose 116 mg/dL (65-115) H 01/05/25 15:11 POC Glucose 188 mg/dL (70-110) H 01/05/25 19:27 Calculated Osmolality 291 mOsm/kg (285-295) 01/05/25 15:11 Lactic Acid 3.5 mmol/L (0.5-2.2) H 01/05/25 15:11 Lactic Acid (Sepsis) 1.5 mmol/L (0.5-2.2) 01/05/25 18:54 Calcium 9.5 mg/dL (8.5-10.5) 01/05/25 15:11 Total Bilirubin 0.7 mg/dL (0.15-1.2) 01/05/25 15:11 AST 25 U/L (0-40) 01/05/25 15:11 ALT 26 U/L (0-41) 01/05/25 15:11 Alkaline Phosphatase 105 U/L (40-130) 01/05/25 15:11 Troponin T Baseline 67 ng/L (0-15) H 01/05/25 15:11 Troponin T 120 Minute 57.86 ng/L (0-15) H 01/05/25 17:04 Delta Troponin T -9.14 ABS# (0-10) L 01/05/25 17:04 C-Reactive Protein 4.3 mg/L (0.0-4.9) 01/05/25 15:11 NT-Pro-B Natriuret Pep 2344 pg/mL (0-450) H 01/05/25 15:11 Total Protein 6.0 g/dL (6.6-8.7) L 01/05/25 15:11 Albumin 3.7 g/dL (3.5-5.2) 01/05/25 15:11 Globulin 2.3 g/dL (1.3-4.6) 01/05/25 15:11 Influenza A (PCR) Negative (Negative) 01/05/25 15:03 Influenza Type B (PCR) Negative (Negative) 01/05/25 15:03 RSV (PCR) Negative (Negative) 01/05/25 15:03 SARS-CoV-2 (PCR) Negative (Negative) 01/05/25 15:03 All radiology interpretation(s) finalized by discharge Discharge Plan Discharge Patient Disposition: Xfer Short-Term Hosp Clinical Impression: COPD with acute exacerbation, Sepsis, Wound infection, Acute on chronic hypoxic respiratory failure, Acute on chronic renal failure, Hyperkalemia Condition: Stable Print Language: Tajik Coding Level of Care Code ED Tracer Powder Blender for Zahraa Julio
--- NOTE | 2025-01-05 14:25 | ECG_ITS ---
[facility]: 2025-01-05 Pat Name: Dajuan Presley Department: Room: Gender: Male News Editor: : 1945 Requested By: Martha Solitario Order Number: [id number] Hubbard MD: Nandini Zimmerman M.D. Measurements Intervals [place] Rate: 82 P: 0 AK: 0 QRS: -76 QRSD: 138 T: 30 QT: 338 QTc: 396 Interpretive Statements ATRIAL FIBRILLATION INTRAVENTRICULAR CONDUCTION DELAY [130+ ms QRS DURATION] Compared to ECG 06/16/2024 08:33:09 Left-axis deviation no longer present Electronically Signed On 01-07-2025 13:01:27 COMMERCIAL ANALYST by Nandini Zimmerman M.D. [email or web address]
--- OUTSIDE RECORDS SUMMARY | 2025-01-05 14:26 | XMS_ITS | Encounter Summary ---
Author Organization [facility] Address [address] [place] [address] Care Team Providers Care Dental Insurance Coordinator Name Role Phone Igor Aguilera MD Primary Care Provider [phone] Encounter Details Date Type Department Care Team ([facility] Contact Info) Description 01/02/[address] [address] Provider, Abstract NO ADDRESS ON FILE Social History Tobacco Use Types Packs/Day Years Used Date Smoking Tobacco: Former Cigarettes 1 1986 Passive Smoke Exposure: Never Smokeless Tobacco: Never Alcohol Use Standard Drinks/Week Comments No 0 (1 standard drink = 0.6 oz pur e alcohol) Feeling Safe Answer Date Recorded Are you in a relationship wi th someone who hurts you emotionally and/or physically? No 03/21/2024 Food Insecurity Answer Date Recorded Social/Environmental Concerns No concerns Transportation Needs Answer Date Record ed Social/Environmental Concerns No concerns Housing Stability Answer Date Recorded Social/Environmental Concerns No concerns Utility Needs Answer Date Recorded Social/Environmental Concerns No concerns Sex and Gender Information Value Date Recorded Sex Assigned at Not on file Legal Sex Male 12:59 PM EDUCATION REVIEWER Gender Identity Not on file Sexual Orientation Not on file documented as of this encounter Plan of Treatment Upcoming Encounters Date Type Department Care Team (Late Contact Info) Description 01/09/2025 11:20 AM EDUCATION REVIEWER Office Visit [address] [phone] Igor Aguilera MD [address] [place] [phone] 02/03/2025 10:30 AM EDUCATION REVIEWER Telemed [facility] [place] [address] [facility] [address] [place] [address] Fabian Montgomery MD [address] [facility] [place] [address] 02/07/2025 3:30 PM EDUCATION REVIEWER Appointment [facility] [address] [facility] [address] [place] [address] Grover Lyle MD [address] [place] [phone] documented as of this encounter Visit Diagnoses Not on filedocumented in this encounter Care Teams Dental Insurance Coordinator Relationship Specialty Start Date End Date Igor Aguilera MD [address] [place] [phone] PCP - General Family Practice 10/24/21 documented as of this encounter
--- OUTSIDE RECORDS SUMMARY | 2025-01-05 14:26 | XMS_ITS | Encounter Summary ---
Author Organization [facility] Address [address] [place] [address] Care Team Providers Care Pie Maker Name Role Phone Igor Aguilera MD Primary Care Provider [phone] Reason for Visit * Reason Comments Patient Communication Encounter Details Date Type Department Care Team (Late st Contact Info) Description 01/04/2025 Telephone [facility] Medicine [address] [address] Igor Aguilera MD [facility] [address] [address] Patient Communication Social History Tobacco Use Types Packs/Day Years Used Date Smoking Tobacco: Former Cigarettes 1 3 4 - 1986 Passive Smoke Exposure: Never Smokeless Tobacco: [...] on file Legal Sex Male 12:59 PM BACK END ENGINEER Gender Identity Not on file Sexual Orientation Not on file documented as of this encounter Miscellaneous Notes * Telephone Encounter - Katarzyna Camejo RN - 01/04/2025 10:23 AM BACK END ENGINEER Duplicate encounter. See results note. Katarzyna Camejo RN, 01/04/2025 10:23 AM END ENGINEER * Telephone Encounter - Kristina Magdaleno - 01/04/2025 10:06 AM CST Copied from [facility] #[id number]. Topic: CPA Information Request >> Jan 04, 2025 10:04 AM Kristina Woodward wrote: Caller is returning phone call from clinic. Caller Name: Joan espinoza [facility] Patient/Caregiver Callback Number: Telephone Information: Clinic Left Note In Chart Is there a note from the clinic requesting the caller be transferred when they call back? No Are the credentials of the caregiver who called the patient microstrategy reports developer? Yes Call Notes: Communicated information that is documented in the note. Caller wants a call back from clinic. END ENGINEER documented in this encounter Plan of Treatment Upcoming Encounters Date Type Department Care Team (Late st Contact Info) Description 01/09/2025 11:20 AM BACK END ENGINEER Office Visit [facility] Family Medicine [place] [address] [phone] Igor Aguilera MD [address] [phone] 02/03/2025 10:30 AM BACK END ENGINEER Telemed [facility] [place] [address] [address] Fabian Montgomery MD [address] [facility] [place] [address] 02/07/2025 3:30 PM BACK END ENGINEER Appointment [facility] Neurology [facility] [address] [phone] Grover Lyle MD [address] [place] [address] documented as of this encounter Visit Diagnoses Not on filedocumented in this encounter Care Teams Pie Maker Relationship Specialty Start Date End Date Igor Aguilera MD [address] [phone] PCP - General Family Practice 10/24/21 documented as of this encounter
--- OUTSIDE RECORDS SUMMARY | 2025-01-05 14:26 | XMS_ITS | Encounter Summary ---
Author Organization [facility] Address [address] [place] [address] Care Team Providers Care Long Distance Billing Operator Name Role Phone Igor Aguilera MD Primary Care Provider [phone] Encounter Details Date Type Department Care Team (Late Contact Info) Description 07/09/2023 Lab Requisition [facility] Laboratory Services [place] [address] [address] TimmySamia chambers, UNDERTAKER HELPER [address] [place] [phone] Hypokalemia Social History Tobacco Use Types Packs/Day Years Used Date Smoking Tobacco: Former Cigarettes 1 3 4 - 1986 Passive Smoke Exposure: Never Smokeless Tobacco: Never Alcohol Use Standard Drinks/Week Comments No 0 (1 standard drink = 0.6 oz pur e alcohol) Feeling Safe Answer Date Recorded Are you in a relationship wi th someone who hurts you emotionally and/or physically? No 05/27/2023 Food Insecurity Answer Date Recorded Social/Environmental Concerns No concerns Transportation Needs Answer Date Record ed Social/Environmental Concerns No concerns Housing Stability Answer Date Recorded Social/Environmental Concerns No concerns Utility Needs Answer Date Recorded Social/Environmental Concerns No concerns Sex and Gender Information Value Date Recorded Sex Assigned at Not on file Legal Sex Male 12:59 PM BUS WASHER Gender Identity Not on file Sexual Orientation Not on file documented as of this encounter Plan of Treatment Upcoming Encounters Date Type Department Care Team (Late Contact Info) Description 01/09/2025 11:20 AM BUS WASHER Office Visit [facility] Family Medicine [place] [address] [place] [address] Igor Aguilera MD [address] [place] [address] 02/03/2025 10:30 AM BUS WASHER Telemed [facility] Telemedicine - [place] [address] [place] [address] Fabian Montgomery MD [address] [facility] [place] [address] 02/07/2025 3:30 PM BUS WASHER Appointment [facility] Neurology [facility] [address] [place] [address] Grover Lyle MD [address] [place] [address] documented as of this encounter Procedures Procedure Name Priority Date/Time Associated Diagnosis Comments COMPREHENSIVE METABOLIC PANEL Stat 07/09/2023 4:02 PM CDT Hypokalemia documented in this encounter Results * (ABNORMAL) COMPREHENSIVE METABOLIC PANEL (07/09/2023 4:02 PM CDT) SODIUM 142 136 - 145 mmol/L 07/09/2023 6:32 PM CDT [facility] POTASSIUM 3.7 3.5 - 5.1 mmol/L 07/09/2023 6:32 PM CDT [facility] CHLORIDE 96(L) 98 - 107 mmol/L 07/09/2023 6:32 PM CDT [facility] CO2 37(H) 22 - 29 mmol/L 07/09/2023 6:32 PM CDT [facility] CALCIUM 9.7 8.8 - 10.2 mg/dL 07/09/2023 6:32 PM T [facility] BUN 15 8 - 23 mg/dL 07/09/2023 6:32 PM [facility] CREATININE 1.38(H) 0.67 - 1.17 mg/dL 07/09/2023 6:32 PM [facility] Comment:The GFR result is no t clinically significant on patients <18 or >70 years of age. GLUCOSE 106(H) 74 - 99 mg/dL 07/09/2023 6:32 PM [facility] TOTAL PROTEIN 6.7 6.6 - 8.7 g/dL 07/09/2023 6:32 PM [facility] ALBUMIN 4.1 3.5 - 5.2 g/dL 07/09/2023 6:32 PM [facility] BILIRUBIN TOTAL 0.5 <=1.2 mg/dL 07/09/2023 6:32 PM [facility] ALKALINE PHOSPHATASE 75 40 - 129 U/L 07/09/2023 6:32 PM [facility] AST 38 10 - 50 U/L 07/09/2023 6:32 PM [facility] ALT 18 10 - 50 U/L 07/09/2023 6:32 PM [facility] GFR 52 mL/min/1.7 3 sq meter 07/09/2023 6:32 PM [facility] Comment:eGFR calculated with 2020 CKD-EPI equation. Vegetarian diet, extremely high or low muscle mass, and may affect results. Cystatin C with Glomerular Filtration Rate is a suitable alternative for these patients. ANION GAP 9(L) 12 - 20 mmol/L 07/09/2023 6:32 PM [facility] Blood 07/09/2023 4:02 PM CDT 07/09/2023 4:09 PM CDT us Samia LOZANOP CHEMISTRY ORDERABLES Fin al Result [facility] CLIA # [id number] [address] [place] [address] documented in this encounter Visit Diagnoses Diagnosis Hypokalemia Hypopotassemia documented in this encounter Care Teams Long Distance Billing Operator Relationship Specialty Start Date End Date Igor Aguilera MD [address] [address] PCP - General Family Practice 10/24/21 documented as of this encounter
--- OUTSIDE RECORDS SUMMARY | 2025-01-05 14:26 | XMS_ITS | Encounter Summary ---
Author Organization [facility] Address [address] [place] [address] Care Team Providers Care Auto Garage Attendant Name Role Phone Igor Aguilera MD Primary Care Provider + [phone] Encounter Details Date Type Department Care Team ([facility] Contact Info) Description 07/09/2022 Lab Requisition [facility] Laboratory Services [place] [address] [address] Samia Warner, [facility] [address] [address] Chronic obstructive pulmonary disease, unspecified (CMS/HCC) Social History Tobacco Use Types Packs/Day Years Used Date Smoking Tobacco: Never Passive Smoke Exposure: Never Smokeless Tobacco: Never Alcohol Use Standard Drinks/Week Comments No 0 (1 standard drink = 0.6 oz pur e alcohol) Sex and Gender Information Value Date Recorded Sex Assigned at Not on file Legal Sex 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 No / Unsure 07/09/2022 8:58 AM CDT documented as of this encounter Plan of Treatment Upcoming Encounters Date Type Department Care Team ([facility] Contact Info) Description 01/09/2025 11:20 AM MERCHANT MILL UTILITY WORKER Office Visit [facility] Medicine [place] [address] [address] Igor Aguilera MD [address] [place] [phone] 02/03/2025 10:30 AM MERCHANT MILL UTILITY WORKER Telemed [facility] Telemedicine - [place] [address] [facility] [address] [place] [address] aFbian Montgomery MD [address] [place] [address] 02/07/2025 3:30 PM MERCHANT MILL UTILITY WORKER Appointment [facility] Neurology Clinic [place] [address] [facility] [address] [place] [address] Grover Lyle MD [address] [place] [address] documented as of this encounter Procedures Procedure Name Priority Date/Time Associated Diagnosis Comments DIFFERENTIAL, MANUAL Stat 07/09/2022 12:09 PM CDT Chronic obstructive pulmonary disease, unspecified CBC WITH DIFFERENTIAL Stat 07/09/2022 12:09 PM CDT Chronic obstructive pulmonary disease, unspecified C-REACTIVE PROTEIN Stat 07/09/2022 12 :09 PM CDT Chronic obstructive pulmonary disease, unspecified BRAIN NATRIURETIC PEPTIDE, BNP OR PROBNP Stat 07/09/2022 12:09 PM CDT Chronic obstructive pulmonary disease, unspecified COMPREHENSIVE METABOLIC PANEL Stat 07/09/2022 12:09 PM CDT Chronic obstructive pulmonary disease, unspecified documented in this encounter Results * MANUAL DIFFERENTIAL (07/09/2022 12:09 PM CDT) PLATELET EST. Decreased 07/09/2022 12:26 PM CDT [facility] RBC MORPHOLOGY Normal 07/09/2022 12:26 PM CDT [facility] Blood Venipuncture / Unknown 07/09/2022 12:09 PM CDT 07/09/2022 12:09 PM CDT Narrative [facility] - 07/09/2022 12:26 PM CDT Smear reviewed. Findings consistent with automated results. us Samia Halls STRETCHER AND DRIER HEMATOLOGY ORDERABLES CO M Final Result Performing Organization Address City/[facility]/ZIP Co de Phone Number [facility] CLIA # [id number] [address] [place] [address] * (ABNORMAL) BRAIN NATRIURETIC PEPTIDE, BNP OR PROBNP (07/09/2022 12:09 PM CDT) PROBNP, N TERMINAL 1,130(H) 0 - 450 pg/mL 07/09/2022 12:32 PM CDT [facility] Blood Venipuncture / Unknown 07/09/2022 12:09 PM CDT 07/09/2022 12:09 PM CDT us Samia Gaines Timmy STRETCHER AND DRIER CHEMISTRY ORDERABLES Fin al Result Performing Organization Address [facility] Co de Phone Number [facility] CLIA # [id number] [address] [place] [address] * (ABNORMAL) C-REACTIVE PROTEIN (07/09/2022 12:09 PM CDT) CRP 16.9(H) <5.0 mg/L 07/09/2022 12:32 PM CDT [facility] Blood Venipuncture / Unknown 07/09/2022 12:09 PM CDT 07/09/2022 12:09 PM CDT us Samia Gaines Timmy STRETCHER AND DRIER CHEMISTRY ORDERABLES Fin al Result [facility] CLIA # [id number] [address] [place] [address] * (ABNORMAL) COMPREHENSIVE METABOLIC PANEL (07/09/2022 12:09 PM T) SODIUM 139 136 - 145 mmol/L 07/09/2022 12:32 PM [facility] POTASSIUM 4.8 3.5 - 5.1 mmol/L 07/09/2022 12:32 PM [facility] CHLORIDE 102 98 - 107 mmol/L 07/09/2022 12:32 PM [facility] CO2 29 22 - 29 mmol/L 07/09/2022 12:32 PM [facility] CALCIUM 9.4 8.8 - 10.2 mg/dL 07/09/2022 12:32 PM [facility] BUN 17 8 - 23 mg/dL 07/09/2022 12:32 PM [facility] CREATININE 1.42(H) 0.67 - 1.17 mg/dL 07/09/2022 12:32 PM [facility] Comment:The GFR result is no t clinically significant on patients <18 or >70 years of age. GLUCOSE 126(H) 74 - 99 mg/dL 07/09/2022 12:32 PM [facility] TOTAL PROTEIN 7.4 6.6 - 8.7 g/dL 07/09/2022 12:32 PM [facility] ALBUMIN 4.0 3.5 - 5.2 g/dL 07/09/2022 12:32 PM [facility] BILIRUBIN TOTAL 0.3 <=1.2 mg/dL 07/09/2022 12:32 PM [facility] ALKALINE PHOSPHATASE 97 40 - 129 U/L 07/09/2022 12:32 PM [facility] AST 37 10 - 50 U/L 07/09/2022 12:32 PM [facility] ALT 27 10 - 50 U/L 07/09/2022 12:32 PM [facility] GFR 51 mL/min/1.7 3 sq meter 07/09/2022 12:32 PM [facility] Comment:eGFR calculated with 2020 CKD-EPI equation. Vegetarian diet, extremely high or low muscle mass, and may affect results. Cystatin C with Glomerular Filtration Rate is a suitable alternative for these patients. ANION GAP 8(L) 12 - 20 mmol/L 07/09/2022 12:32 PM [facility] Blood Venipuncture / Unknown 07/09/2022 12:09 PM CDT 07/09/2022 12:09 PM CDT us Samia Warner STRETCHER AND DRIER CHEMISTRY ORDERABLES Fin al Result [facility] CLIA # [id number] [address] [place] [address] * (ABNORMAL) CBC WITH DIFFERENTIAL (07/09/2022 12:09 PM CDT) WBC 6.5 4.2 - 9.1 K/uL 07/09/2022 12:26 PM [facility] RBC 4.79 4.63 - 6.08 M/uL 07/09/2022 12:26 PM [facility] HEMOGLOBIN 15.5 13.7 - 17.5 g/dL 07/09/2022 12:26 PM [facility] HEMATOCRIT 46.8 40.1 - 51.0 % 07/09/2022 12:26 PM [facility] MCV 97.7(H) 79.0 - 92.2 fL 07/09/2022 12:26 PM [facility] MCH 32.4(H) 25.7 - 32.2 pg 07/09/2022 12:26 PM [facility] MCHC 33.1 32.3 - 36.5 g/dL 07/09/2022 12:26 PM [facility] RDW 13.2 11.0 - 14.5 % 07/09/2022 12:26 PM [facility] RDW-STDEV 47.8 36.9 - 56.9 fL 07/09/2022 12:26 PM [facility] PLATELETS 127(L) 130 - 400 K/uL 07/09/2022 12:26 PM [facility] MPV 11.2 10.0 - 14.8 fL 07/09/2022 12:26 PM [facility] NEUTROPHILS 83(H) 34 - 68 % 07/09/2022 12:26 PM [facility] LYMPHOCYTES 10(L) 22 - 53 % 07/09/2022 12:26 PM [facility] MONOCYTES 5 5 - 12 % 07/09/2022 12:26 PM [facility] EOSINOPHILS 0(L) 1 - 7 % 07/09/2022 12:26 PM [facility] BASOPHILS 1 0 - 1 % 07/09/2022 12:26 PM [facility] IMMATURE GRANULOCYTES 1 % 07/09/2022 12:26 PM [facility] NEUTROPHIL ABSOLUTE 5.39(H) 1.78 - 5.38 K/uL 07/09/2022 12:26 PM [facility] LYMPHOCYTE ABSOLUTE 0.67(L) 1.20 - 3.40 K/uL 07/09/2022 12:26 PM [facility] MONOCYTE ABSOLUTE 0.33 0.30 - 0.82 K/uL 07/09/2022 12:26 PM [facility] EOSINOPHIL ABSOLUTE 0.01(L) 0.04 - 0.54 K/uL 07/09/2022 12:26 PM [facility] BASOPHILS ABSOLUTE 0.05 0.01 - 0.08 K/uL 07/09/2022 12:26 PM [facility] IMMATURE GRANULOCYTES ABSOLUTE 0.03 K/uL 07/09/2022 12:26 PM [facility] Blood Venipuncture / Unknown 07/09/2022 12:09 PM CDT 07/09/2022 12:09 PM CDT us Samia Halls STRETCHER AND DRIER HEMATOLOGY ORDERABLES Fi nal Result [facility] CLIA # [id number] [address] [address] documented in this encounter Visit Diagnoses Diagnosis Chronic obstructive pulmonary disease, unspecified (CMS/HCC) documented in this encounter Additional Health Concerns Infection Onset Date Last Indicated Resolved Time R/O COVID-19 02/03/2023 02/03/2023 02/03/2023 1:57 PM MERCHANT MILL UTILITY WORKER Assessment Noted Time PHQ-9 Depression Total Score: 1 03/06/19 9:48 AM MERCHANT MILL UTILITY WORKER documented as of this encounter Care Teams Auto Garage Attendant Relationship Specialty Start Date End Date Igor Aguilera MD [address] [phone] PCP - General Family Practice 10/24/21 documented as of this encounter
--- OUTSIDE RECORDS SUMMARY | 2025-01-05 14:26 | XMS_ITS | Encounter Summary ---
Author Organization [facility] Address 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 [place] [address] 02/07/2025 3:30 PM TACTICAL AIR DEFENSE CONTROLLER Appointment [facility] Neurology [facility] [address] [facility] [address] [place] [address] Grover Lyle MD [address] [place] [address] documented as of this encounter Visit Diagnoses Not on filedocumented in this encounter Care Teams Crew Manager Relationship Specialty Start Date End Date Igor Aguilera MD [address] [place] [phone] PCP - General Family Practice 10/24/21 documented as of this encounter
--- OUTSIDE RECORDS SUMMARY | 2025-01-05 14:26 | XMS_ITS | Encounter Summary ---
Author Organization [facility] Address [address] [place] [address] Care Team Providers Care Pond Worker Name Role Phone Igor Sanford MD Primary Care Provider [phone] Reason for Referral * Radiology Services (Routine) - Authorized Specialty Diagnoses / Procedures Referred By Contac t Referred To Contact Radiology Diagnoses PAD (peripheral artery disease) Procedures US DUPLEX ARTERIAL LEGS BILATERAL Igor Sanford MD [address] [address] Phone: tel: fax: [facility] Ultrasound [place] [address] [address] Phone: tel: fax: Referral ID Status Reason Start Date Expiration Date V isits Requested Visits Authorized [id number] Authorized 01/04/2025 02/04/2026 1 1 AL MERCHANDISING SPECIALIST * Eval and Treat (Urgent) - Closed Specialty Diagnoses / Procedures Referred By Contac t Referred To Contact Ophthalmology Diagnoses Temporal arteritis (CMS/HCC) Procedures UT OFFICE/OUTPATIENT ESTABLISHED MOD MDM 30 MIN UT OFFICE/OUTPATIENT NEW MODERATE MDM 45 MINUTES Igor Sanford MD [address] [address] Phone: tel: fax: [facility] [address] [place] [address] Phone: tel: fax: Referral ID Status Reason Start Date Expiration Date Visits Re quested Visits Authorized [id number] Closed 12/04/2024 12/04/2025 1 1 * Radiology Services (Urgent) - Closed Specialty Diagnoses / Procedures Referred By Contac t Referred To Contact Radiology Diagnoses Temporal arteritis (CMS/HCC) Procedures US TEMPORAL ARTERY IMAGING Igor Sanford MD [address] [address] Phone: tel: fax: [facility] Non-Invasive Procedure [address] [place] [address] Phone: tel: fax: Referral ID Status Reason Start Date Expiration Date Visits Re quested Visits Authorized [id number] Closed 12/04/2024 01/04/2026 1 1 Reason for Visit * Reason Onset Date Comments Results 12/04/2024 Encounter Details Date Type Department Care Team (Latest Contact Info) Description 12/04/2024 Results Follow-Up [facility] Family Medicine [place] [address] [address] Igor Sanford MD [address] [address] COMPREHENSIVE METABOLIC PANEL, PSA, SEDIMENTATION RATE, Additional followed-up results: 5 Social History Tobacco Use Types Packs/Day Years Used Date Smoking Tobacco: Former Cigarettes 1 3 1 4 - 1986 Passive Smoke Exposure: Never [...] on file Legal Sex Male 12:59 PM 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 Voiced understanding. Katarzyna PETERSEN AL MERCHANDISING SPECIALIST * Telephone Encounter - Katarzyna Camejo RN - 01/04/2025 9:37 AM VISUAL MERCHANDISING SPECIALIST 01/04/2025 9:37 AM No answer. Left voice mail/message that patient/caregiver can return our call. If patient/caregivercalls back, contact center please inform caller to expect a return call from the clinic. Katarzyna PETERSEN AL MERCHANDISING SPECIALIST * Telephone Encounter - Katarzyna Camejo RN - 01/04/2025 9:36 AM VISUAL MERCHANDISING SPECIALIST ----- Message from Dr. Igor Sanford sent at 01/04/2025 8:24 AM VISUAL MERCHANDISING SPECIALIST ----- [id number] elevated, consistent with higher risk of Alzheimer's, however beta amyloid 42/40 ratio showsa lower risk, conflicting results, neither are specific for Lewy body dementia, recommend further discussion with neurology, patient is scheduled in January. ----- Message ----- From: Gerhard Cotter Incoming [facility] Results Sent: 12/03/2024 3:14 AM VISUAL MERCHANDISING SPECIALIST To: Igor Sanford MD AL MERCHANDISING SPECIALIST * Telephone Encounter - Katarzyna Camejo RN - 01/04/2025 9:36 AM VISUAL MERCHANDISING SPECIALIST ----- Message from Dr. Igor Sanford sent at 01/04/2025 9:10 AM VISUAL MERCHANDISING SPECIALIST ----- There is evidence of decreased blood flow bilaterally, will follow-up with bilateral ultrasound of the arteries ----- Message ----- From: [facility] Incoming Ancillary Results And Orders To [facility] Sent: 12/15/2024 7:59 PM VISUAL MERCHANDISING SPECIALIST To: Igor Sanford MD AL MERCHANDISING SPECIALIST * Addendum Note - Igor Sanford MD - 01/04/2025 9:10 AM CSTAddended by: IGOR SANFORD on: 01/04/2025 09:10 AM Modules accepted: Orders AL MERCHANDISING SPECIALIST * Telephone Encounter - Jesusita Jameson RN - 12/05/2024 10:17 AM CDT 12/05/2024 10:17 AM Called and notified caregiver of results. Voiced understanding. Daughter states, Dr. Thurman is patient's urologist. She will contact his office to arrange appointment. Labs faxed. Jesusita PETERSEN * Telephone Encounter - Jesusita Jameson RN - 12/05/2024 10:17 AM CDT ----- Message from Dr. Igor Sanford sent at 12/04/2024 4:13 PM CDT ----- Kidney function stable, electrolytes look good, liver enzymes normal, blood count looks good, inflammatory markers are both elevated concerning for temporal arteritis given his symptoms in the office, recommend we proceed with high-dose steroid, and imaging/biopsy to confirm diagnosis, patient will be contacted for scheduling. If he has worsening vision changes or headache he should return to the clinic, if he has significant improvement in symptoms he should notify us as well. Also marked elevation in PSA, patient has known prostate cancer and currently follows with urology, will forward value for their review and recommendations. Please confirm patient's urologist and forward to their office, also patient should contact urology to schedule a follow-up visit. ----- Message ----- From: Gerhard Cotter Incoming [facility] Results Sent: 12/03/2024 3:14 AM CDT To: Igor Sanford MD documented in this encounter Plan of Treatment Upcoming Encounters Date Type Department Care Team (Late st Contact Info) Description 01/09/2025 11:20 AM VISUAL MERCHANDISING SPECIALIST Office Visit [facility] Family Medicine [address] [phone] Igor Sanford MD [address] [phone] 02/03/2025 10:30 AM VISUAL MERCHANDISING SPECIALIST Telemed [facility] Telemedicine - [place] [address] [address] Fabian Montgomery MD [address] [facility] [facility] [place] [address] 02/07/2025 3:30 PM VISUAL MERCHANDISING SPECIALIST Appointment [facility] Neurology [facility] [address] [address] Grover Lyle MD [address] [place] [address] Scheduled Orders Name Type Priority Associated Diagnoses Orde r Schedule US TEMPORAL ARTERY IMAGING Imaging Stat Temporal arteritis ([facility]/HCC) 1 Occurrences starting 12/04/2024 until 12/04/2025 US DUPLEX ARTERIAL LEGS BILATERAL Imaging Routine PAD (peripheral artery disease) 1 Occurrences starting 01/04/2025 until 01/04/2026 Scheduled Referrals Name Type Priority Associated Diagnoses Order Schedule AMB REFERRAL TO OPHTHALMOLOGY Outpatient Referral Routine Temporal arteritis ([facility]/HCC) Ordered: 12/04/2024 documented as of this encounter Visit Diagnoses Diagnosis Temporal arteritis (CMS/HCC)- Primary Giant cell arteritis PAD (peripheral artery disease) Unspecified disorders of arteries and arterioles documented in this encounter Care Teams Pond Worker Relationship Specialty Start Date End Date Igor Sanford MD [address] [phone] PCP - General Family Practice 10/24/21 documented as of this encounter
--- OUTSIDE RECORDS SUMMARY | 2025-01-05 14:26 | XMS_ITS | Encounter Summary ---
Author Organization [facility] Address [address] [place] [address] Care Team Providers Care Service Desk Technician Name Role Phone Igor Aguilera MD Primary Care Provider [phone] Encounter Details Date Type Department Care Team (Late st Contact Info) Description 05/27/2022 Lab Requisition [facility] Laboratory Services [place] [address] [address] Igor Aguilera MD [address] [place] [phone] Heart failure, unspecified (CMS/HCC) Social History Tobacco Use Types Packs/Day Years Used Date Smoking Tobacco: Never Smokeless Tobacco: Never Alcohol Use Standard Drinks/Week Comments No 0 (1 standard drink = 0.6 oz pur e alcohol) Sex and Gender Information Value Date Recorded Sex Assigned at Not on file Legal Sex Male 12:59 PM IMPROVEMENT SPEC Gender Identity Not on file Sexual Orientation Not on file COVID-19 Exposure Response Date Recorded In the last 10 days, have yo u been in contact with someone who was confirmed or suspected to have Coronavirus/COVID-19? No / Unsure 05/28/2022 1:41 PM CDT documented as of this encounter Miscellaneous Notes * Result Encounter Note - Puja Gonzalez - 05/30/2022 4:43 PM CDT [facility] documented in this encounter Plan of Treatment Upcoming Encounters Date Type Department Care Team (Late st Contact Info) Description 01/09/2025 11:20 AM IMPROVEMENT SPEC Office Visit [facility] Family Medicine [place] [address] [place] [phone] Igor Aguilera MD [address] [place] [address] 02/03/2025 10:30 AM IMPROVEMENT SPEC Telemed [facility] Telemedicine - [place] [address] [place] [address] Fabian Montgomery MD [address] [place] [address] 02/07/2025 3:30 PM IMPROVEMENT SPEC Appointment [facility] Neurology [facility] [address] [place] [address] Grover Lyle MD [address] [place] [address] documented as of this encounter Procedures Procedure Name Priority Date/Time Associated Diagnosis Comments CBC WITH DIFFERENTIAL Stat 05/27/2022 2:41 PM CDT Heart failure, unspecified BRAIN NATRIURETIC PEPTIDE, BNP OR PROBNP Stat 05/27/2022 2:41 PM CDT Heart failure, unspecified COMPREHENSIVE METABOLIC PANEL Stat 05/27/2022 2:41 PM CDT Heart failure, unspecified documented in this encounter Results * BRAIN NATRIURETIC PEPTIDE, BNP OR PROBNP (05/27/2022 2:41 PM CDT) PROBNP, N TERMINAL 373 0 - 450 pg/mL 05/27/2022 3:01 PM CDT [facility] Blood Venipuncture / Unknown 05/27/2022 2:41 PM CDT 05/27/2022 2:41 PM CDT us Igor Aguilera MD CHEMISTRY ORDERABLES Serene jose Result [facility] CLIA # [id number] [address] [address] * (ABNORMAL) COMPREHENSIVE METABOLIC PANEL (05/27/2022 2:41 PM CDT) SODIUM 136 136 - 145 mmol/L 05/27/2022 3:01 PM CDT [facility] POTASSIUM 4.5 3.5 - 5.1 mmol/L 05/27/2022 3:01 PM [facility] CHLORIDE 100 98 - 107 mmol/L 05/27/2022 3:01 PM [facility] CO2 27 22 - 29 mmol/L 05/27/2022 3:01 PM [facility] CALCIUM 9.6 8.8 - 10.2 mg/dL 05/27/2022 3:01 PM [facility] BUN 19 8 - 23 mg/dL 05/27/2022 3:01 PM [facility] CREATININE 1.49(H) 0.67 - 1.17 mg/dL 05/27/2022 3:01 PM [facility] Comment:The GFR result is no t clinically significant on patients <18 or >70 years of age. GLUCOSE 136(H) 74 - 99 mg/dL 05/27/2022 3:01 PM [facility] TOTAL PROTEIN 7.3 6.6 - 8.7 g/dL 05/27/2022 3:01 PM [facility] ALBUMIN 3.9 3.5 - 5.2 g/dL 05/27/2022 3:01 PM [facility] BILIRUBIN TOTAL 0.4 <=1.2 mg/dL 05/27/2022 3:01 PM [facility] ALKALINE PHOSPHATASE 123 40 - 129 U/L 05/27/2022 3:01 PM [facility] AST 24 10 - 50 U/L 05/27/2022 3:01 PM [facility] ALT 14 10 - 50 U/L 05/27/2022 3:01 PM [facility] GFR 48 mL/min/1.7 3 sq meter 05/27/2022 3:01 PM [facility] Comment:eGFR calculated with 2020 CKD-EPI equation. Vegetarian diet, extremely high or low muscle mass, and may affect results. Cystatin C with Glomerular Filtration Rate is a suitable alternative for these patients. ANION GAP 9(L) 12 - 20 mmol/L 05/27/2022 3:01 PM [facility] Blood Venipuncture / Unknown 05/27/2022 2:41 PM CDT 05/27/2022 2:41 PM CDT Igor Aguilera MD CHEMISTRY ORDERABLES Serene garcia Result [facility] CLIA # [id number] [address] [place] [id number] * (ABNORMAL) CBC WITH DIFFERENTIAL (05/27/2022 2:41 PM CDT) WBC 8.7 4.2 - 9.1 K/uL 05/27/2022 3:11 PM [facility] RBC 4.93 4.63 - 6.08 M/uL 05/27/2022 3:11 PM [facility] HEMOGLOBIN 15.8 13.7 - 17.5 g/dL 05/27/2022 3:11 PM [facility] HEMATOCRIT 47.0 40.1 - 51.0 % 05/27/2022 3:11 PM [facility] MCV 95.3(H) 79.0 - 92.2 fL 05/27/2022 3:11 PM [facility] MCH 32.0 25.7 - 32.2 pg 05/27/2022 3:11 PM [facility] MCHC 33.6 32.3 - 36.5 g/dL 05/27/2022 3:11 PM [facility] RDW 13.5 11.0 - 14.5 % 05/27/2022 3:11 PM [facility] RDW-STDEV 48.2 36.9 - 56.9 fL 05/27/2022 3:11 PM [facility] PLATELETS 133 130 - 400 K/uL 05/27/2022 3:11 PM [facility] MPV 10.5 10.0 - 14.8 fL 05/27/2022 3:11 PM [facility] NEUTROPHILS 59 34 - 68 % 05/27/2022 3:11 PM [facility] LYMPHOCYTES 28 22 - 53 % 05/27/2022 3:11 PM [facility] MONOCYTES 10 5 - 12 % 05/27/2022 3:11 PM [facility] EOSINOPHILS 3 1 - 7 % 05/27/2022 3:11 PM [facility] BASOPHILS 1 0 - 1 % 05/27/2022 3:11 PM [facility] IMMATURE GRANULOCYTES 1 % 05/27/2022 3:11 PM [facility] NEUTROPHIL ABSOLUTE 5.09 1.78 - 5.38 K/uL 05/27/2022 3:11 PM [facility] LYMPHOCYTE ABSOLUTE 2.38 1.20 - 3.40 K/uL 05/27/2022 3:11 PM [facility] MONOCYTE ABSOLUTE 0.87(H) 0.30 - 0.82 K/uL 05/27/2022 3:11 PM [facility] EOSINOPHIL ABSOLUTE 0.24 0.04 - 0.54 K/uL 05/27/2022 3:11 PM [facility] BASOPHILS ABSOLUTE 0.04 0.01 - 0.08 K/uL 05/27/2022 3:11 PM [facility] IMMATURE GRANULOCYTES ABSOLUTE 0.05 K/uL 05/27/2022 3:11 PM [facility] Blood Venipuncture / Unknown 05/27/2022 2:41 PM CDT 05/27/2022 2:41 PM CDT Igor Aguilera MD HEMATOLOGY ORDERABLES Fin al Result [facility] # [id number] [address] [address] documented in this encounter Visit Diagnoses Diagnosis Heart failure, unspecified (CMS/HCC) Heart failure, unspecified documented in this encounter Additional Health Concerns Infection Onset Date Last Indicated Resolved Time R/O COVID-19 02/03/2023 02/03/2023 02/03/2023 1:57 PM IMPROVEMENT SPEC Assessment Noted Time PHQ-9 Depression Total Score: 1 03/06/19 23 9:48 AM IMPROVEMENT SPEC documented as of this encounter Care Teams Service Desk Technician Relationship Specialty Start Date End Date Igor Aguilera MD [address] [address] PCP - General Family Practice 10/24/21 documented as of this encounter
--- OUTSIDE RECORDS SUMMARY | 2025-01-05 14:26 | XMS_ITS | Encounter Summary ---
Author Organization [facility] Address [address] [place] [address] Care Team Providers Care Table Games Dealer Name Role Phone Igor Aguilera MD Primary Care Provider [phone] Reason for Visit * Reason Comments Med Refill Encounter Details Date Type Department Care Team (Late st Contact Info) Description 01/01/[address] 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 Gender Identity Not on file Sexual Orientation Not on file documented as of this encounter Plan of Treatment Upcoming Encounters Date Type Department Care Team (Late st Contact Info) Description 01/09/2025 11:20 AM BATCH HEAT TREAT OPERATOR Office Visit [facility] Medicine [place] [address] [place] [address] Igor Aguilera MD [address] [place] [address] 02/03/2025 10:30 AM BATCH HEAT TREAT OPERATOR Telemed [facility] Telemedicine - [place] [address] [place] [address] Fabian Montgomery MD [address] [address] 02/07/2025 3:30 PM BATCH HEAT TREAT OPERATOR Appointment [facility] Neurology [facility] [address] [place] [address] Grover Lyle MD [address] [place] [address] documented as of this encounter Visit Diagnoses Diagnosis Essential hypertension Unspecified essential hypertension documented in this encounter Care Teams Table Games Dealer Relationship Specialty Start Date End Date Igor Aguilera MD [address] [place] [phone] PCP - General Family Practice 10/24/21 documented as of this encounter
--- OUTSIDE RECORDS SUMMARY | 2025-01-05 14:26 | XMS_ITS | Encounter Summary ---
Author Organization [facility] Address 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 Gender Identity Not on file Sexual Orientation Not on file documented as of this encounter Plan of Treatment Upcoming Encounters Date Type Department Care Team ([facility] st Contact Info) Description 01/09/2025 11:20 AM HAND CANDY CUTTER Office Visit [facility] Family Medicine [place] [address] [place] [address] Igor Aguilera MD [address] [place] [phone] 02/03/2025 10:30 AM HAND CANDY CUTTER Telemed [facility] Telemedicine - [place] [address] [place] [address] Fabian Montgomery MD [address] [place] [address] 02/07/2025 3:30 PM HAND CANDY CUTTER Appointment [facility] Neurology [facility] [address] [place] [address] Grover Llye MD [address] [place] [address] documented as of this encounter Procedures Procedure Name Priority Date/Time Associated Diagnosis Comments CBC WITH DIFFERENTIAL Stat 07/08/2023 1:50 PM CDT Nontraumatic rupture of Achilles tendon COMPREHENSIVE METABOLIC PANEL Stat 07/08/2023 1:50 PM CDT Nontraumatic rupture of Achilles tendon documented in this encounter Results * (ABNORMAL) COMPREHENSIVE METABOLIC PANEL (07/08/2023 1:50 PM CDT) SODIUM 141 136 - 145 mmol/L 07/08/2023 2:21 PM CDT [facility] POTASSIUM 2.9(L) 3.5 - 5.1 mmol/L 07/08/2023 2:21 PM CDT [facility] CHLORIDE 92(L) 98 - 107 mmol/L 07/08/2023 2:21 PM CDT [facility] CO2 40(H) 22 - 29 mmol/L 07/08/2023 2:21 PM [facility] CALCIUM 9.7 8.8 - 10.2 mg/dL 07/08/2023 2:21 PM [facility] BUN 18 8 - 23 mg/dL 07/08/2023 2:21 PM [facility] CREATININE 1.68(H) 0.67 - 1.17 mg/dL 07/08/2023 2:21 PM [facility] Comment:The GFR result is no t clinically significant on patients <18 or >70 years of age. GLUCOSE 138(H) 74 - 99 mg/dL 07/08/2023 2:21 PM [facility] TOTAL PROTEIN 6.8 6.6 - 8.7 g/dL 07/08/2023 2:21 PM [facility] ALBUMIN 4.2 3.5 - 5.2 g/dL 07/08/2023 2:21 PM [facility] BILIRUBIN TOTAL 0.3 <=1.2 mg/dL 07/08/2023 2:21 PM [facility] ALKALINE PHOSPHATASE 83 40 - 129 U/L 07/08/2023 2:21 PM [facility] AST 36 10 - 50 U/L 07/08/2023 2:21 PM [facility] ALT 19 10 - 50 U/L 07/08/2023 2:21 PM [facility] GFR 41 mL/min/1.7 3 sq meter 07/08/2023 2:21 PM [facility] Comment:eGFR calculated with 2020 CKD-EPI equation. Vegetarian diet, extremely high or low muscle mass, and may affect results. Cystatin C with Glomerular Filtration Rate is a suitable alternative for these patients. ANION GAP 9(L) 12 - 20 mmol/L 07/08/2023 2:21 PM [facility] Blood Collection / Unknown 07/08/2023 1:50 PM CDT 07/08/2023 1:50 PM CDT Samia Warner GRAIN RECEIVER CHEMISTRY ORDERABLES Fin al Result [facility] CLIA # [id number] [address] [place] [address] * (ABNORMAL) CBC WITH DIFFERENTIAL (07/08/2023 1:50 PM CDT) WBC 9.9(H) 4.2 - 9.1 K/uL 07/08/2023 2:07 PM CDT [facility] RBC 4.10(L) 4.63 - 6.08 M/uL 07/08/2023 2:07 PM [facility] HEMOGLOBIN 13.5(L) 13.7 - 17.5 g/dL 07/08/2023 2:07 PM [facility] HEMATOCRIT 41.1 40.1 - 51.0 % 07/08/2023 2:07 PM [facility] MCV 100.2(H) 79.0 - 92.2 fL 07/08/2023 2:07 PM [facility] MCH 32.9(H) 25.7 - 32.2 pg 07/08/2023 2:07 PM [facility] MCHC 32.8 32.3 - 36.5 g/dL 07/08/2023 2:07 PM [facility] RDW 12.8 11.0 - 14.5 % 07/08/2023 2:07 PM [facility] RDW-STDEV 47.2 36.9 - 56.9 fL 07/08/2023 2:07 PM [facility] PLATELETS 138 130 - 400 K/uL 07/08/2023 2:07 PM [facility] MPV 11.6 10.0 - 14.8 fL 07/08/2023 2:07 PM [facility] NEUTROPHILS 67 34 - 68 % 07/08/2023 2:07 PM [facility] LYMPHOCYTES 22 22 - 53 % 07/08/2023 2:07 PM [facility] MONOCYTES 9 5 - 12 % 07/08/2023 2:07 PM CDT [facility] EOSINOPHILS 1 1 - 7 % 07/08/2023 2:07 PM [facility] BASOPHILS 0 0 - 1 % 07/08/2023 2:07 PM [facility] IMMATURE GRANULOCYTES 1 % 07/08/2023 2:07 PM [facility] NEUTROPHIL ABSOLUTE 6.62(H) 1.78 - 5.38 K/uL 07/08/2023 2:07 PM [facility] LYMPHOCYTE ABSOLUTE 2.23 1.20 - 3.40 K/uL 07/08/2023 2:07 PM [facility] MONOCYTE ABSOLUTE 0.93(H) 0.30 - 0.82 K/uL 07/08/2023 2:07 PM [facility] EOSINOPHIL ABSOLUTE 0.07 0.04 - 0.54 K/uL 07/08/2023 2:07 PM [facility] BASOPHILS ABSOLUTE 0.04 0.01 - 0.08 K/uL 07/08/2023 2:07 PM [facility] IMMATURE GRANULOCYTES ABSOLUTE 0.05 K/uL 07/08/2023 2:07 PM [facility] Blood Collection / Unknown 07/08/2023 1:50 PM CDT 07/08/2023 1:50 PM CDT Samia Warner GRAIN RECEIVER HEMATOLOGY ORDERABLES Fi nal Result [facility] CLIA # [id number] [address] [place] [id number] documented in this encounter Visit Diagnoses Diagnosis Nontraumatic rupture of Achilles tendon documented in this encounter Care Teams Bank Boss Relationship Specialty Start Date End Date Igor Aguilera MD [address] [phone] PCP - General Family Practice 10/24/21 documented as of this encounter
--- OUTSIDE RECORDS SUMMARY | 2025-01-05 14:27 | XMS_ITS ---
Author Organization [facility] Address [address] Attn: Epic Prelude ADT RICARDA WADE [address] Care Team Providers Care Educational Advisor Name Role Phone Igor Aguilera MD Primary Care Provider [phone] Active Problems Problem Noted Date Diagnosed Date TONY on CPAP 08/25/2024 Closed supracondylar fracture of right humerus 0 08/09/2024 Frail elderly 07/13/2024 Hypersomnia due to medical condition 07/13/2024 Severe obesity (BMI 35.0-39.9) with comorbidity 05/17/2024 History of falling 05/17/2024 Chronic, continuous use of opioids 11/09/2023 Statin myopathy 08/13/2023 Thrombocytopenia 05/27/2023 Acute cystitis with hematuria 05/26/2023 Elevated d-dimer 05/26/2023 Closed stable burst fracture of sixth thoracic vertebra with routine healing 05/26/2023 Closed fracture of sixth thoracic vertebra 05/25 Chronic respiratory failure with hypoxia and hyp ercapnia 04/14/2023 Malignant neoplasm of prostate 03/09/2023 COPD with exacerbation 02/03/2023 Right bundle branch block (RBBB) on electrocardi ogram (ECG) 02/03/2023 Elevated troponin 02/03/2023 Chronic migraine without aur a, intractable, without status migrainosus 11/20/2022 Stage 3a chronic kidney disease 09/04/2022 Chronic diastolic congestive heart failure 09/04 Gastroesophageal reflux disease without esophagi tis 03/06/2022 Elevated PSA 03/06/2022 Urge incontinence of urine 03/06/2022 Recurrent major depressive disorder, in partial remission 03/06/2022 Angina pectoris 01/02/2022 Assessment & Plan (01/02/2022 9:24 AM CDT): Stable. Continue current treatment. Every Word Counts - Angina ([facility]) extermination supervisor prescription opiate use 11/26/2021 Prediabetes 10/24/2021 Benign prostatic hyperplasia with urinary freque ncy 10/24/2021 Chronic headache 10/24/2021 Chronic pain syndrome 10/24/2021 Primary insomnia 10/24/2021 History of intracranial hemorrhage 10/24/2021 BMI 38.0-38.9,adult 11/01/2020 Venous stasis dermatitis of both lower extremiti es 11/01/2020 A-fib 10/26/2020 Vitamin D deficiency 03/28/2020 COPD (chronic obstructive pulmonary disease) 04/2014 Essential hypertension 05/01/2014 DJD (degenerative joint disease), lumbar 012 S/P knee replacement 11/14/2011 Left knee DJD 05/18/2009 Current Treatment and Therapy Plans No current plan information found. Past Treatment and Therapy Plans No past plan information found. 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 12/03/19 25 12/02/2024 Nausea and vomiting 11/09/2023 11/16/19 24 Fall 05/27/2023 05/17/2024 Type 2 diabetes mellitus wit h hyperglycemia, without long-term current use of insulin 11/02/2020 10/24/2021 Elevated TSH 11/02/2020 10/24/2021 Urinary urgency 11/01/2020 10/24/2021 Status epilepticus 10/26/2020 Headache 10/26/2020 10/24/2021 Seizure in response to acute event 10/25/2020 10/24/2021 Subdural hematoma 10/23/2020 10/24/2021 Brain compression 10/23/2020 03/06/2022 Chronic anticoagulation 10/23/202010/01 Acute respiratory failure 11/09/2016 Prerenal acute renal failure 11/09/2016 10/24/2021 Acute encephalopathy 11/09/2016 022 Spinal enthesopathy 11/14/2011 10/25/19 22 Spasm 11/14/2011 10/24/2021 Altered mental status 2021
--- OUTSIDE RECORDS SUMMARY | 2025-01-05 14:27 | XMS_ITS | Clinical Summary ---
Author Organization [facility] Address [address] Attn: Epic Prelude ADT RICARDA WADE [address] Care Team Providers Care Health Professional Name Role Phone Igor Aguilera MD Primary Care Provider [phone] Allergies Active Allergy Reactions Criticality Noted Date Comments Alpha-Gal (Svwuhsbdx-Dybss-6,3-Galactos e) Other (See Comments) 12/14/2023 Alpha gal Amiodarone Unknown High 06/30/2023 Cefdinir Nausea and Vomiting High 06/24/2023 Pentazocine Unknown 06/24/2023 Pentazocine Lactate Hypertension Medium 05/26/2008 Medications naloxone (NARCAN) 4 mg/spray [place], Non-Aerosol EMERGENCY USE ONLY: Administer 1 spray (4 mg) in one nostril one time. May repeat in alternating nostrils every 2-3 min until responsive or EMS arrives. 2 Each 3 021 Active magnesium oxide (MAG-OX) 400 mg (241.3 mg magnesium) tablet Take 1 Tablet (400 mg) by mouth daily. 90 Tablet 1 018 Active albuterol sulfate (ProAir HFA) 90 mcg/Actuation inhaler 2 PUFF(S) EVERY 6 HOURS NEEDED FOR SHORTNESS OF BREATH 8.5 Gram 5 018 Active albuterol (PROVENTIL,VENT RIVERA) 2.5 mg /3 mL (0.083 %) Solution for NebulizationInd ications:Chroni c obstructive pulmonary disease, unspecified COPD type (CMS/HCC) INHALATION 1 VIAL NEEDED EVERY 4 HR 022 Active nitroglycerin (NITROSTAT) 0.4 mg Tablet, Sublingual Place 0.4 mg under tongue. Active diapers, underpads, pullupsIndicati ons:Acute on chronic systolic congestive heart failure (CMS/HCC),Urge incontinence of urine,Benign prostatic hyperplasia with urinary frequency XL Pull-ups Face to Face completed within 6 months: yes Length of Need: 99 months Changes per day: 3 90 Each 11 023 Active oxygen home deliveryIndicat ions:Chronic obstructive pulmonary disease, unspecified COPD type (CMS/HCC),Chron ic respiratory failure with hypoxia (CMS/HCC) Home Oxygen Concentrator yes at 0 L/M Rest, 0 L/M Activity, 2 L/M Sleep, Delivery Device: Nasal Cannula Portability: no, 0 L/M Rest, 0 L/M Activity, May provide device best for patient needs(E system,home fill, conserving device) Length of Need: 99 months 1 Each 024 Active aspirin (ECOTRIN EC) 81 mg Tablet, Delayed Release (E.C.) Take 81 mg by mouth daily. Active acetaminophen (TYLENOL ARTHRITIS) 650 mg Extended Release tablet Take 650 mg by mouth every 6 hours as needed for Pain, Pain, Mild or Pain, Moderate. Active cholecalciferol , vitamin D3, 1,000 unit daily. 023 Active cloNIDine HCL (CATAPRES) 0.1 mg tabletIndicatio ns:Benign hypertension Take 1 Tablet (0.1 mg) by mouth 3 times daily as needed for Blood Pressure (for blood pressure 140/90 or greater). 90 Tablet 1 024 Active triamcinolone acetonide (KENALOG) 0.1 % OintmentIndicat ions:Psoriasis Apply to affected area 2 times daily. 435.6 Gram 2 024 Active EPINEPHrine (EPIPEN) 0.3 mg/0.3 mL Auto-InjectorIn dications:Aller gy to alpha-gal Inject 0.3 mL (0.3 mg) by intramuscular injection 1 time daily as needed for Anaphylaxis. 2 Each 1 024 Active nebulizerIndica tions:Chronic obstructive pulmonary disease, unspecified COPD type (CMS/HCC),Chron ic respiratory failure with hypoxia (CMS/HCC) Length of need 99 months Nebulizer with compressor, Kit: Disposable Nebulizer Kit, 2 per month, filters , areosol mask: No. Name of Medication duoneb 1 Each Active portable oxygenIndicatio ns:Chronic respiratory failure with hypoxia (CMS/HCC) Face to Face completed within 30 days: yes Length of Need: 99 months Portable oxygen concentrator By: Nasal Cannula With Activity at 2 L/min. 1 Each Active tamsulosin (FLOMAX) 0.4 mg capsule Take 1 Capsule (0.4 mg) by mouth daily. 100 Capsule 3 025 Active polyethylene glycol 3350 (MIRALAX) 17 gram/dose Powder Take 17 Grams by mouth daily. Dissolve in 8 ounces of fluid and drink entire liquid Active vit C-vit [place]-tusf OXIDE-lutein (PRESERVISION) 226-90-0.8-5 mg Capsule Take 2 Capsules by mouth daily. Active cholecalciferol , Vitamin D3, (Vitamin D3) 25 mcg (1,000 unit) Capsule Take 1 Capsule (1,000 Units) by mouth daily. 025 Active potassium CHLORIDE (K-TAB) 20 mEq Extended Release tabletIndicatio ns:Essential hypertension Take 2 Tablets (40 mEq) by mouth 2 times daily with meals. 360 Tablet 2 Active furosemide (LASIX) 40 mg tablet TAKE ONE TABLET BY MOUTH EVERY DAY 90 Tablet 1 025 Active DULoxetine (CYMBALTA) 60 mg Capsule, Delayed Release(E.C.) Take 60 mg by mouth daily. Active fluticasone propionate (FLONASE) 50 mcg/spray [place], Suspension nasal inhaler two sprays in each nostril daily 025 Active ketoconazole (NIZORAL) 2 % Shampoo APPLY TO SCALP EVERY DAY Active Vit A,C,E-Zinc-Yamileth er (PreserVision AREDS) 4,296 mcg-226 mg-90 mg Capsule Take by mouth every 12 hours. 025 Active omeprazole (PriLOSEC) 20 mg Capsule, Delayed Release(E.C.)In dications:Gastr oesophageal reflux disease without esophagitis TAKE 1 CAPSULE (20 MG) BY MOUTH DAILY. 100 Capsule 3 025 Active metoprolol tartrate 37.5 mg TabletIndicatio ns:Essential hypertension,At rial fibrillation, unspecified type (CMS/HCC) Take 37.5 mg by mouth 2 times daily. 200 Tablet 2 Active propafenone (RYTHMOL) 150 mg Tablet TAKE 1 TABLET (150 MG) BY MOUTH 3 TIMES DAILY. 300 Tablet 3 Active zolpidem (AMBIEN CR) 6.25 mg Controlled Release tabletIndicatio ns:Primary insomnia TAKE ONE TABLET BY MOUTH EVERY NIGHT NEEDED FOR INSOMNIA 30 Tablet 2 Active rizatriptan (MAXALT PIE CRIMPING MACHINE OPERATOR) 10 mg Tablet, Rapid Dissolve PLACE ONE TAB INSIDE CHEEK EVERY TWO HOURS NEEDED FOR MIGRAINE. MAY REPEAT IN TWO HOURS .MAX DOSE 20MG IN 24 HOURS Active valsartan (DIOVAN) 160 mg tablet Take 1 Tablet by mouth daily. Active buPROPion HCL (WELLBUTRIN XL) 300 mg Extended Release 24 hour tabletIndicatio ns:Recurrent major depressive disorder, in partial remission TAKE 1 TABLET BY MOUTH DAILY FOR DEPRESSION 30 Tablet 2 Active oxyCODONE (ROXICODONE) 15 mg tabletIndicatio ns:Osteoarthrit is of spine with radiculopathy, lumbar region,Chronic pain syndrome Take 1 Tablet (15 mg) by mouth every 6 hours as needed for Pain, Moderate. Max Daily Amount: 60 mg 120 Tablet Active bicalutamide (Casodex) 50 mg tablet Take 1 Tablet (50 mg) by mouth daily. 90 Tablet 3 Active predniSONE (DELTASONE) 20 mg tabletIndicatio ns:Temporal arteritis (CMS/HCC) Take 2 Tablets (40 mg) by mouth daily for 14 days. Contact the office prior to end of this Rx 28 Tablet 2024 Active Breztri Aerosphere 160 mcg-9mcg-4.8mcg /actuation HFA aerosol inhalerIndicati ons:Mucopurulen t chronic bronchitis (CMS/HCC) Take 2 Puffs by inhalation 2 times daily. 10.7 Gram 2 Active Breztri Aerosphere 160 mcg-9mcg-4.8mcg /actuation HFA aerosol inhalerIndicati ons:Mucopurulen t chronic bronchitis (CMS/HCC) Take 2 Puffs by inhalation 2 times daily. 10.7 Gram 11 025 2024 Discontinued(R eorder) oxyCODONE (ROXICODONE) 15 mg tabletIndicatio ns:Osteoarthrit is of spine with radiculopathy, lumbar region,Chronic pain syndrome Take 1 Tablet (15 mg) by mouth every 6 hours as needed for Pain, Moderate. Max Daily Amount: 60 mg 120 Tablet 2024 Discontinued(R eorder) predniSONE (DELTASONE) 20 mg tabletIndicatio ns:Temporal arteritis (CMS/HCC) Take 3 Tablets (60 mg) by mouth daily. Contact the office prior to end of this Rx 90 Tablet 2024 Discontinued Hospital, Clinic, or Other Facility Administered Medication Ordered Dose Route Frequency Start Date End Date Status leuprolide acetate (ELIGARD) 6 month subcut syringe 45 mgIndications:Prosta te cancer (CMS/HCC) 45 mg subCUT EVERY TWENTY-SIX WEEKS 09/11/2023 Active leuprolide acetate (ELIGARD) 6 month subcut syringe 45 mgIndications:Prosta te cancer (CMS/HCC) 45 mg subCUT ONE TIME ONLY 12/22/2024 12/22/2024 En ded Active Problems Problem Noted Date Diagnosed Date [...] treatment. 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 Resolved Problems Problem Noted Date Diagnosed Date [...] Spasm 11/14/2011 10/24/2021 Altered mental status 2021 Encounters Date Type Department Care Team Description 01/04/2025 Telephone [facility] [address] [place] [address] Igor Aguilera MD Patient Communication 01/02/2025 Abstract [facility] [address] [place] [address] Provider, Abstract 01/02/2025 Abstract [facility] [address] [place] [address] Provider, Abstract 01/01/[address] [place] [address] Marleen Muse, AARON Essential hypertension 12/26/[address] [place] [address] Provider, Abstract 12/22/2024 11:30 AM CDT [facility] [address] [place] [address] Gopi Ovalle MD Prostate cancer ([facility]/HCC) (Primary Dx) 12/22/2024 Refill [facility] [address] [place] [address] Marleen Muse, AUTOMATIC LINE SET UP MECHANIC Mucopurulent chronic bronchitis ([facility]/HCC) 12/22/2024 Orders Only [address] [place] [address] Igor Aguilera MD Temporal arteritis (CMS/HCC) 12/15/2024 2:34 PM CDT - 12/15/2024 11:59 PM CDT Hospital Encounter [facility] [address] [place] [address] Igor Aguilera MD Discharge Disposition: Home or Self Care 12/15/2024 Orders Only [facility] Information Management [address] [place] [address] Provider, Abstract 12/13/[address] [phone] Provider, Abstract 12/09/[address] [phone] Igor Aguilera MD Provider Call; Patient Communication 12/09/[address] [place] [address] Igor Aguilera MD Osteoarthritis of spine with radiculopathy, lumbar region; Chronic pain syndrome 12/08/[address] [place] [address] Igor Aguilera MD Patient Communication 12/06/[address] [place] [address] Provider, Abstract 12/04/2024 Results Follow-Up [address] [place] [address] Igor Aguilera MD COMPREHENSIVE METABOLIC PANEL, PSA, SEDIMENTATION RATE, Additional followed-up results: 5 12/02/2024 2:20 PM CDT Office Visit [address] [address] Igor Aguilera MD Decreased pedal pulses (Primary Dx); 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); Malignant neoplasm of prostate ([facility]); Other jail (current) drug therapy; Memory loss; Stage 3a chronic kidney disease ([facility]/HCC); Reduced mobility; History of falling; Chronic diastolic congestive heart failure ([facility]/HCC); Panlobular emphysema ([facility]) 11/17/2024 12:00 PM CDT Office Visit [address] [place] [address] Rukhsana Dickerson, AUTOMATIC LINE SET UP MECHANIC Oral infection (Primary Dx) 11/14/[address] [place] [address] Provider, Abstract 11/14/[address] [place] [address] Provider, Abstract 11/08/[address] [place] [address] Provider, Abstract 11/05/[address] [place] [address] Igor Aguilera MD Osteoarthritis of spine with radiculopathy, lumbar region; Chronic pain syndrome 11/05/[address] [place] [address] Marleen Muse FNP Recurrent major depressive disorder, in partial remission 11/05/[address] [place] [address] Marleen Muse FNP Recurrent major depressive disorder, in partial remission 11/05/[address] [place] [address] Igor Aguilera MD Osteoarthritis of spine with radiculopathy, lumbar region; Chronic pain syndrome 11/05/[address] [place] [address] Igor Aguilera MD Primary insomnia 11/01/2024 Results Follow-Up [address] [phone] Rukhsana Dickerson FNP BASIC METABOLIC PANEL, CBC WITH DIFFERENTIAL 10/28/2024 1:[address] [facility] [place] [address] [phone] Fabian Montgomery MD TONY (obstructive sleep apnea) (Primary Dx); Stage 3 severe COPD by GOLD classification (CMS/HCC) 10/28/2024 11:00 AM CDT Office Visit [address] [place] [address] Rukhsana Dickerson FNP Cellulitis of right lower extremity (Primary Dx); Community acquired pneumonia of right lung, unspecified part of lung; Suspected UTI; Hypoxia; Panlobular emphysema (CMS/HCC); Longstanding persistent atrial fibrillation (CMS/HCC); Venous stasis dermatitis of both lower extremities 10/26/[address] [phone] Igor Aguilera MD Primary insomnia 10/22/[address] [phone] Igor Aguilera MD 10/06/[address] [address] Igor Aguilera MD Osteoarthritis of spine with radiculopathy, lumbar region; Chronic pain syndrome 10/06/[address] [place] [address] Igor Aguilera MD Referral (Sleep Medicine/); Patient Communication 10/06/2024 Results Follow-Up [address] [address] Igor Aguilera MD HOME SLEEP STUDY UNATTENDED from Last 3 Months Immunizations Immunization Administration Dates Next Due (PNEUMOVAX 23)(50 YRS UP) PN EUMOCOCCAL POLYSACCHARIDE (PPV23) 0.5 ML, IM 12/19/1998 INFLUENZA VACCINE HIGH DOSE QUADRIVALENT 65 YR UP PF IM 11/01/2021,02/25/2021 INFLUENZA VACCINE HIGH DOSE TRIVALENT SPLIT VIRUS, (65 YR UP), 0.5ML (PF), IM 12/02/2024,11/16/2023 INFLUENZA VACCINE QUADRIVALE NT 3 YR UP PF IM 03/29/2019,01/21/2017,01/21/2017 INFLUENZA VACCINE QUADRIVALE NT ADJ 65 YR UP PF IM 12/05/2022 Influenza Seasonal Unspecifi ed Formulation IM 11/01/2021,12/15/2019,12/09/2017,02/09,12/11/1998 Influenza Vaccine High Dose 65+ Yrs IM 8 Pneumococcal conjugate, unsp ecified formulation 03/22/2021 Skin Test TB 07/06/2024,06/25/2024,03/07/2014 Family History Medical History Relation Name Comments Diabetes Father Dajuan Colon Cancer Neg Hx Relation Name Status Comments Father Dajuan Social History Tobacco Use Types Packs/Day Years Used Date Smoking Tobacco: Former Cigarettes 1 3 1 4 - 1986 Passive Smoke Exposure: Never Smokeless Tobacco: Never Tobacco Cessation:Counseling Given: Not Answered Alcohol Use Standard Drinks/Week Comments No 0 [...] on file Legal Sex 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 Gender Identity Not on file Sexual Orientation Not on file Last Filed Vital Signs Vital Sign Reading Time Taken Comments Blood Pressure 118/74 12/02/2024 2:09 PM CDT Pulse 77 12/02/2024 2:09 PM CDT Temperature 36.4 C (97.5 F) 12/02/2024 2:09 PM CDT Respiratory Rate 20 12/02/2024 2:09 PM CDT Oxygen Saturation 99% 12/02/2024 2:0 9 PM CDT Inhaled Oxygen Concentration - - Weight 117.9 kg (260 lb) 12/02/2024 2:0 9 PM CDT previous weight; scale is broken Height 177.8 cm (5' 10 ) 12/02/2024 2:0 9 PM CDT Body Mass Index 37.31 12/02/2024 2:09 PM CDT Plan of Treatment Upcoming Encounters Date Type Department Care Team (Late st Contact Info) Description 01/09/2025 11:20 AM WILD LIFE PHOTOGRAPHER Office Visit [facility] [place] [address] [address] Igor Aguilera MD [address] [address] 02/03/2025 10:30 AM WILD LIFE PHOTOGRAPHER Telemed [facility] [place] [address] [address] Fabian Montgomery MD [address] [phone] 02/07/2025 3:30 PM WILD LIFE PHOTOGRAPHER Appointment [facility] [address] [address] Grover Lyle MD [address] [place] [address] Health Maintenance Due Date Last Done Comments DTAP/TDAP/TD VACCINES (1 - Tdap) 08/27/1963 ZOSTER VACCINE (1 of 2) 1994 RSV VACCINE (60+ or ) (1 - 1-dose 75+ series) 08/27/2019 PNEUMOCOCCAL VACCINE 50+ YEA RS (2 of 2 - PCV) 03/22/2022 03/22/2021, 12/19/1998 COVID-19 Vaccine (4 - 2024-2 6 season) 2024 02/25/2021, 05/18/2020, 04/20/2020 Colorectal Cancer Screening Discontinued FIT/FOBT Q 1 year Discontinued 11/25/2017 Medicare Advantage (ID) Preventative Visit/Annual Wellness Visit Completed 08/25/2024, 08/13/2023 INFLUENZA VACCINE Completed 12/02/2024, , 12/05/2022, Additional history exists COLORECTAL SCREENING Discontinued FIT-DNA Q 3 years Discontinued Flex Sig/CT Colonography Q 5 years Discontinued Medical Devices Implanted Type Area Authorizer Device Identifier Shelf Expiration Date Model / Serial / Lot Hemostatic Surgiflo 8ml W/Thrombin 2993 - [id number] Implanted:Qty: 1 on 10/25/[address] [facility] Hemostatic N/A: Cranial J&J- [employer] [id number] 01/29/20222993 / / [id number] Hemostatic Surgifoam Sz12-7 1971 - [id number] Implanted:Qty: 1 on 10/25/[address] [facility] Hemostatic N/A: Cranial J&J- [employer] [id number] 04/04/20241971 / / [id number] Hemostatic Surgifoam 1gm 1977 - [id number] Implanted:Qty: 1 on 10/25/[address] [facility] Hemostatic N/A: Cranial J[employer]J- [employer] [id number] 03/26/20221977 / / [id number] Hemostatic Surgicel 2x3in 1952 [id number] Implanted:Qty: 1 on 10/25/[address] [facility] Hemostatic N/A: Cranial J&J- [employer] [id number] 06/29/20241952 / / [id number] Hemostatic Surgifoam Sz100 1973 [id number] Implanted:Qty: 1 on 10/25/[address] [facility] Hemostatic N/A: Cranial J&J- [employer] [id number] 03/29/20241973 / / [id number] Plate Matrxneuro Straight 2 - [id number] Implanted:Qty: 1 on 10/25/2020 by Zenaida Van MD at [facility] Plate N/A: Cranial SYNTHES-STRATE C- MAXIFACIAL 503.0 62 / / Plate Matrxneuro Bur Hl Cvr 023 - [id number] Implanted:Qty: 1 on 10/25/2020 by Zenaida Van MD at [facility] Plate N/A: Cranial SYNTHES-STRATE C- MAXIFACIAL [id number] 503.0 23 / / Plate Matrxneuro Y 067 - [id number] Implanted:Qty: 1 on 10/25/2020 by Zenaida Van MD at [facility] Plate N/A: Cranial SYNTHES-STRATE C- MAXIFACIAL [id number] 503.0 67 / / Plate Matrxneuro Straight - [id number] Implanted:Qty: 1 on 10/25/2020 by Zenaida Van MD at [facility] Plate N/A: Cranial SYNTHES-STRATE C- MAXIFACIAL 503.0 62 / / Plate Matrxneuro Y 067 - [id number] Implanted:Qty: 1 on 10/25/2020 by Zenaida Van MD at [facility] Plate N/A: Cranial SYNTHES-STRATE C- MAXIFACIAL [id number] 503.0 67 / / Screw Matrixneuro Sd . - [id number] Implanted:Qty: 1 on 10/25/2020 by Zenaida Van MD at [facility] Screw N/A: Cranial SYNTHES-STRATE C- MAXIFACIAL [id number] 503.1 04.01 / / Screw Matrixneuro Sd . - [id number] Implanted:Qty: 1 on 10/25/2020 by Zenaida Van MD at [facility] Screw N/A: Cranial SYNTHES-STRATE C- MAXIFACIAL [id number] 04.503.1 04.01 / / Screw Matrixneuro Sd 04.503.104.01 - [id number] Implanted:Qty: 1 on 10/25/2020 by Zenaida Van MD at [facility] Screw N/A: Cranial SYNTHES-STRATE C- MAXIFACIAL [id number] 04.503.1 04.01 / / Screw Matrixneuro Sd 04.503.104.01 - [id number] Implanted:Qty: 1 on 10/25/2020 by Zenaida Van MD at [facility] Screw N/A: Cranial SYNTHES-STRATE C- MAXIFACIAL [id number] 04.503.1 04.01 / / Screw Matrixneuro Sd 04.503.104.01 - [id number] Implanted:Qty: 1 on 10/25/2020 by Zenaida Van MD at [facility] Screw N/A: Cranial SYNTHES-STRATE C- MAXIFACIAL [id number] 04.503.1 04.01 / / Screw Matrixneuro Sd 04.503.104.01 - [id number] Implanted:Qty: 1 on 10/25/2020 by Zenaida Van MD at [facility] Screw N/A: Cranial SYNTHES-STRATE C- MAXIFACIAL [id number] 04.503.1 04.01 / / Screw Matrixneuro Sd 04.503.104.01 - [id number] Implanted:Qty: 1 on 10/25/2020 by Zenaida Van MD at [facility] Screw N/A: Cranial SYNTHES-STRATE C- MAXIFACIAL [id number] 04.503.1 04.01 / / Screw Matrixneuro Sd 04.503.104.01 - [id number] Implanted:Qty: 1 on 10/25/2020 by Zenaida Van MD at [facility] Screw N/A: Cranial SYNTHES-STRATE C- MAXIFACIAL [id number] 04.503.1 04.01 / / Screw Matrixneuro Sd 04.503.104.01 - [id number] Implanted:Qty: 1 on 10/25/2020 by Zenaida Van MD at [facility] Screw N/A: Cranial SYNTHES-STRATE C- MAXIFACIAL [id number] 04.503.1 04.01 / / Screw Matrixneuro Sd 04.503.104.01 - [id number] Implanted:Qty: 1 on 10/25/2020 by Zenaida Van MD at [facility] Screw N/A: Cranial SYNTHES-STRATE C- MAXIFACIAL [id number] 04.503.1 04.01 / / Screw Matrixneuro Sd 04.503.104.01 - [id number] Implanted:Qty: 1 on 10/25/2020 by Zenaida Van MD at [facility] Screw N/A: Cranial SYNTHES-STRATE C- MAXIFACIAL [id number] 04.503.1 04.01 / / Screw Matrixneuro Sd 04.503.104.01 - [id number] Implanted:Qty: 1 on 10/25/2020 by Zenaida Van MD at [facility] Screw N/A: Cranial SYNTHES-STRATE C- MAXIFACIAL [id number] 04.503.1 04.01 / / Screw Matrixneuro Sd 04.503.104.01 - [id number] Implanted:Qty: 1 on 10/25/2020 by Zenaida Van MD at [facility] Screw N/A: Cranial SYNTHES-STRATE C- MAXIFACIAL [id number] 04.503.1 04.01 / / Screw Matrixneuro Sd 04503.104.01 - [id number] Implanted:Qty: 1 on 10/25/2020 by Zenaida Van MD at 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 (CMS/HCC) Memory loss PSA Routine 12/02/2024 3:39 PM CDT Malignant neoplasm of prostate (CMS/HCC) COMPREHENSIVE METABOLIC PANEL Routine 12/02/2024 3:39 PM CDT Stage 3a chronic kidney disease (CMS/HCC) PHOSPHORYLATED HUR891 Routine 12/02/2024 3:39 PM CDT 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 (CMS/HCC) Memory loss CBC WITH DIFFERENTIAL Stat 10/28/2024 11:26 AM CDT Community acquired pneumonia of right lung, unspecified part of lung Hypoxia BASIC METABOLIC PANEL Routine 10/28/2024 11:26 AM CDT Community acquired pneumonia of right lung, unspecified part of lung Hypoxia OCCULT BLOOD IMMUNOASSAY, COLORECTAL SCREEN 11/25/2017 12:00 AM CDT from Last 3 Months or Most Recently Relevant to Health Maintenance Results * US ANKLE PRESSURE INDEX (12/15/2024 5:22 PM CDT) Anatomical Region Laterality Modality Lower Extremity Ultrasound 12/15/2024 3:39 PM CDT Narrative 12/15/2024 7:59 PM CDT [facility] Cardiovascular Services Noninvasive Vascular Laboratory [facility] [place] [address] Noninvasive Vascular Lab Patient: Dajuan Presley Study ID: [id number] Gender: M : 1945 Age: 79 Room: Height: 177.8cm Weight: 117.9kg BSA: 2.46m^2 Pt status: Study Date: 12/15/2024 Study Time: 03:39:06 PM BSA: 2.46m^2 Ordering: Igor Aguilera Interpreting:Nata Cannon Director Of Special Events: Marissa Huffman Vascular Screening History: Continuous right foot pain. Mottled of the right lower extremity. Mottled of the left lower extremity. RT 2ND TOE NONHEALING WOUND, DECR PEDAL PULSES, BOTH LEGS ARE DARK RED, HX CHF. Summary Impression: 1. No evidence of arterial insufficiency on the right based on TAJ, however this may be falsely elevated due to medial calcinosis. Right peroneal artery occlusion present. 2. At least mild arterial insufficiency in the left lower extremity. Study data: Height: 177.8cm. Height: 70in. Weight: 117.9kg. Weight: 259.9lb. BMI: 37.3kg/m^2. BSA: 2.46m^2. Arterial flow: - Right femoral proximal: Right femoral proximal 0.84m/sec - Right femoral mid: Right femoral mid 0.59m/sec - Right femoral distal: Right femoral distal 0.51m/sec - Right common femoral: Right common femoral 0.6m/sec - Right common femoral proximal: Right common femoral proximal 0.6m/sec - Right dorsal pedal: Right dorsal pedal 0.35m/sec - Right popliteal: Right popliteal 0.44m/sec - Right deep femoral: Right deep femoral 0.58m/sec - Left femoral proximal: Left femoral proximal 0.99m/sec - Left femoral mid: Left femoral mid 0.59m/sec - Left femoral distal: Left femoral distal 0.48m/sec - Left common femoral: Left common femoral 0.84m/sec - Left dorsal pedal: Left dorsal pedal 0.35m/sec - Left popliteal: Left popliteal 0.47m/sec - Left deep femoral: Left deep femoral 0.59m/sec Ankle brachial indices Rt PT: 0mm Hg Rt DP: 142mm Hg Rt brachial: 111mm Hg Rt DP: 1.12 Lt PT: 0mm Hg Lt DP: 100mm Hg Lt Brachial: 127mm Hg Lt DP: 0.79 Brachial pressures: - Rt brachial pressure (sys): 111mm Hg - Lt brachial pressure (sys): 127mm Hg - Max brachial pressure (sys): 127mm Hg - Rt brachial pressure (goldman): 80mm Hg - Lt brachial pressure (goldman): 82mm Hg - 90 - 97 Prepared and Electronically Authenticated Nata Cannon Confirmed 12/15/2024 19:59 Procedure Note Nata Cannon DO - 12/15/[address] [facility] Noninvasive Vascular Laboratory [address] [place] [id number] Noninvasive Vascular Lab Patient: Dajuan Presley Study ID: [id number] Gender: M : 1945 Age: 79 Room: Height: 177.8cm Weight: 117.9kg BSA: 2.46m^2 Pt status: Study Date: 12/15/2024 Study Time: 03:39:06 PM BSA: 2.46m^2 Ordering: Igor Aguilera Interpreting:Nata Cannon Director Of Special Events: Marissa Huffman Vascular Screening History: Continuous right foot pain. Mottled of the right lowerextremity. Mottled of the left lower extremity. RT 2ND TOE NONHEALING WOUND, DECRPEDAL PULSES, BOTH LEGS ARE DARK RED, HX CHF. Summary Impression: 1. No evidence of arterial insufficiency on the right based on TAJ,however this may be falsely elevated due to medial calcinosis. Right peroneal artery occlusion present. 2. At least mild arterial insufficiency in the left lower extremity. Study data: Height: 177.8cm. Height: 70in. Weight: 117.9kg.Weight: 259.9lb. BMI: 37.3kg/m^2. BSA: 2.46m^2. Arterial flow: - Right femoral proximal: Right femoral proximal 0.84m/sec - Right femoral mid: Right femoral mid 0.59m/sec - Right femoral distal: Right femoral distal 0.51m/sec - Right common femoral: Right common femoral 0.6m/sec - Right common femoral proximal: Right common femoral proximal 0.6m/sec - Right dorsal pedal: Right dorsal pedal 0.35m/sec - Right popliteal: Right popliteal 0.44m/sec - Right deep femoral: Right deep femoral 0.58m/sec - Left femoral proximal: Left femoral proximal 0.99m/sec - Left femoral mid: Left femoral mid 0.59m/sec - Left femoral distal: Left femoral distal 0.48m/sec - Left common femoral: Left common femoral 0.84m/sec - Left dorsal pedal: Left dorsal pedal 0.35m/sec - Left popliteal: Left popliteal 0.47m/sec - Left deep femoral: Left deep femoral 0.59m/sec Ankle brachial indices Rt PT: 0mm Hg Rt DP: 142mm Hg Rt brachial: 111mmHg Rt DP: 1.12 Lt PT: 0mm Hg Lt DP: 100mm Hg Lt Brachial: 127mm Hg Lt DP:0.79 Brachial pressures: - Rt brachial pressure (sys): 111mm Hg - Lt brachial pressure (sys): 127mm Hg - Max brachial pressure (sys): 127mm Hg - Rt brachial pressure (goldman): 80mm Hg - Lt brachial pressure (goldman): 82mm Hg - 90 - 97 Prepared and Electronically Authenticated Nata Cannon Confirmed 12/15/2024 19:59 us Igor Aguilera MD US ORDERABLES Final Res ult * EYE EXAM (12/06/2024 7:53 AM CDT) us Abstract Provider OPHTH OTHER Final Result * (ABNORMAL) PHOSPHORYLATED [id number] (12/02/2024 3:39 PM CDT) PHOSPHO-TAU(217P) 0.28(H) < OR = 0.15 pg/mL [facility], Comment: Plasma p-tbe217 levels are consistent with current mild cognitive impairment and symptomatic Alzheimer's disease when compared to patients with other neurodegenerative disorders and show strong correlation with amyloid PET and tau PET. Lancet Neurol 2021; 20:739-752 This test was developed and its analytical performance characteristics have been determined by [facility]. It has not been cleared or approved by the FDA. This assay has been validated pursuant to the CLIA regulations and is used for clinical purposes. Test Performed at: [facility], [address] [place] [phone] Jeannette Wright MD,PhD,JUN Blood 12/02/2024 3:39 PM CDT 12/03/2024 2:26 AM CDT Igor Aguilera MD CHEMISTRY ORDERABLES [facility] Result [facility] [phone] [facility], [address] [place] [address] * BETA-AMYLOID 42/40 RATIO - AD DETECTION (12/02/2024 3:39 PM CDT) Pathologist [facility] ABETA 42 77 pg/mL [facility], Comment: Reference Range: NOT ESTABLISHED ABETA 40 429 pg/mL [facility], Comment: Reference Range: NOT ESTABLISHED ABETA 42/40 RATIO 0.179 > OR = 0.170 [facility], Comment: Plasma beta-amyloid 42/40 ratio Risk Table: Risk of Alzheimer's Disease: Lower Risk: > or = 0.170 Intermediate Risk: 0.150 - 0.169 Higher Risk: <0.150 The concentrations on this report only represent wild type Abeta 40 and 42. The variants of Abeta 40 and 42 are not detected in this assay. This test was developed and its analytical performance characteristics have been determined by [facility]. It has not been cleared or approved by the FDA. This assay has been validated pursuant to the CLIA regulations and is used for clinical purposes. Test Performed at: [facility], [address] [place] [phone] Jeannette Wright MD,PhD,JUN Blood 12/02/2024 3:39 PM CDT 12/03/2024 2:26 AM CDT Igor Aguilera MD CHEMISTRY ORDERABLES [facility] Result [facility] [phone] [facility], [address] [place] [address] * (ABNORMAL) CBC WITH DIFFERENTIAL (12/02/2024 3:39 PM CDT) Only the most recent of2 resultswithin the time period is included. WBC 7.3 3.8 - 10.8 Thousand/u L [facility] RBC 4.25 4.20 - 5.80 Million/uL [facility] HEMOGLOBIN 13.7 13.2 - 17.1 g/dL [facility] HEMATOCRIT 43.1 38.5 - 50.0 % [facility] MCV 101.4(H) 80.0 - 100.0 fL [facility] MCH 32.2 27.0 - 33.0 pg [facility] MCHC 31.8(L) 32.0 - 36.0 g/dL [facility] Comment: For adults, a slight decrease in the calculated MCHC value (in the range of 30 to 32 g/dL) is most likely not clinically significant; however, it should be interpreted with caution in correlation with other red cell parameters and the patient's clinical condition. RDW 12.7 11.0 - 15.0 % [facility] PLATELETS 123(L) 140 - 400 Thousand/u L [facility] MPV 11.5 7.5 - 12.5 fL [facility] NEUTROPHIL ABSOLUTE 4,438 1,500 - 7,800 cells/uL [facility] LYMPHOCYTE ABSOLUTE 2,000 850 - 3,900 cells/uL [facility] MONOCYTE ABSOLUTE 730 200 - 950 cells/uL [facility] EOSINOPHIL ABSOLUTE 110 15 - 500 cells/uL [facility] BASOPHILS ABSOLUTE 22 0 - 200 cells/uL [facility] NEUTROPHIL 60.8 % [facility] LYMPHOCYTES 27.4 % [facility] MONOCYTE 10.0 % [facility] EOSINOPHILS 1.5 % [facility] BASOPHILS 0.3 % [facility] Comment: Test Performed at: [facility] [address] [place] [phone] Chevy Mix MD Blood 12/02/2024 3:39 PM CDT 12/03/2024 2:26 AM CDT Igor Aguilera MD HEMATOLOGY ORDERABLES Fin al Result Performing Organization Address City/[facility]/ZIP Co de Phone Number [facility] [phone] [facility] [address] [place] [phone] * (ABNORMAL) SEDIMENTATION RATE (12/02/2024 3:39 PM CDT) ESR (SEDIMENTATION RATE) 39(H) < OR = 20 mm/h [facility] Comment: Test Performed at: [facility] [address] [place] [address] Chevy Mix MD Blood 12/02/2024 3:39 PM CDT 12/03/2024 2:26 AM CDT Igor Aguilera MD HEMATOLOGY ORDERABLES Fin al Result [facility] [phone] [facility] [address] [facility] [place] [address] * (ABNORMAL) C-REACTIVE PROTEIN (12/02/2024 3:39 PM CDT) CRP 32.5(H) <8.0 mg/L [facility] Comment: Test Performed at: [facility] [address] [place] [address] Chevy Mix MD Blood 12/02/2024 3:39 PM CDT 12/03/2024 2:26 AM CDT Igor Aguilera MD CHEMISTRY ORDERABLES [facility] Result Performing Organization Address [facility] Co de Phone Number [facility] [phone] [facility] [address] [place] [address] * (ABNORMAL) PSA (12/02/2024 3:39 PM CDT) PSA 12.31(H) < OR = 4.00 ng/mL [facility] Comment: The total PSA value from this assay system is standardized against the WHO standard. The test result will be approximately 20% lower when compared to the equimolar-standardized total PSA ([facility] [place]). Comparison of serial PSA results should be interpreted with this fact in mind. This test was performed using the Siemens chemiluminescent method. Values obtained from different assay methods cannot be used interchangeably. PSA levels, regardless of value, should not be interpreted as absolute evidence of the presence or absence of disease. Test Performed at: [facility] [address] [facility] [place] [address] Chevy Mix MD Blood 12/02/2024 3:39 PM CDT 12/03/2024 2:26 AM CDT Igor Aguilera MD CHEMISTRY ORDERABLES [facility] Result Performing Organization Address City/[facility]/ZIP Co de Phone Number [facility] [phone] [facility] [address] [place] [address] * (ABNORMAL) COMPREHENSIVE METABOLIC PANEL (12/02/2024 3:39 PM CDT) GLUCOSE 150(H) 65 - 99 mg/dL [facility] Comment: Fasting reference interval For someone without known diabetes, a glucose value >125 mg/dL indicates that they may have diabetes and this should be confirmed with a follow-up test. BUN 21 7 - 25 mg/dL [facility] CREATININE 1.53(H) 0.70 - 1.22 mg/dL [facility] GFR 46(L) > OR = 60 mL/min/1.7 3m2 [facility] BUN/CREAT RATIO 14 6 - 22 (calc) [facility] SODIUM 140 135 - 146 mmol/L [facility] POTASSIUM 5.2 3.5 - 5.3 mmol/L [facility] CHLORIDE 97(L) 98 - 110 mmol/L [facility] CO2 36(H) 20 - 32 mmol/L [facility] CALCIUM 9.0 8.6 - 10.3 mg/dL [facility] TOTAL PROTEIN 6.4 6.1 - 8.1 g/dL [facility] ALBUMIN 3.6 3.6 - 5.1 g/dL [facility] GLOBULIN 2.8 1.9 - 3.7 g/dL (calc) [facility] ALBUMIN/GLOBULIN RATIO 1.3 1.0 - 2.5 (calc) [facility] BILIRUBIN TOTAL 0.4 0.2 - 1.2 mg/dL [facility] ALKALINE PHOSPHATASE 114 35 - 144 U/L [facility] AST 22 10 - 35 U/L [facility] ALT 10 9 - 46 U/L [facility] Comment: Test Performed at: [facility] [address] [facility] [place] [address] Chevy Mix MD Blood 12/02/2024 3:39 PM CDT 12/03/2024 2:26 AM CDT us Igor Aguilera MD CHEMISTRY ORDERABLES [facility] Result Performing Organization Address City/[facility]/ZIP Co de Phone Number [facility] [phone] [facility] [address] [place] [address] * (ABNORMAL) BASIC METABOLIC PANEL (10/28/2024 11:26 AM CDT) GLUCOSE 68 65 - 99 mg/dL [facility] Comment: Fasting reference interval BUN 22 7 - 25 mg/dL [facility] CREATININE 1.51(H) 0.70 - 1.22 mg/dL [facility] GFR 46(L) > OR = 60 mL/min/1.7 3m2 [facility] BUN/CREAT RATIO 15 6 - 22 (calc) [facility] SODIUM 138 135 - 146 mmol/L [facility] POTASSIUM 5.2 3.5 - 5.3 mmol/L [facility] CHLORIDE 98 98 - 110 mmol/L [facility] CO2 34(H) 20 - 32 mmol/L [facility] CALCIUM 9.2 8.6 - 10.3 mg/dL [facility] Comment: Test Performed at: [facility] [address] [facility] [place] [address] Chevy Mix MD Blood 10/28/2024 11:2 6 AM CDT 10/29/2024 5:58 AM CDT us Rukhsana WALKER CHEMISTRY ORDERABLES Final Result Performing Organization Address [facility]/ZIP Co de Phone Number [facility] [phone] [facility] [address] [place] [address] * OCCULT BLOOD IMMUNOASSAY, COLORECTAL SCREEN (11/25/2017 12:00 AM CDT) us Sgf Scanning BODY FLUIDS AND STOOLS Final Res ult from Last 3 Months or Most Recently Relevant to Health Maintenance Insurance [facility] PPO [facility] Advance Directives For more information, please contact: [phone] * Full Code (Latest Code Status on File) Date Activated Date Inactivated Comments 08/25/2024 11:53 AM * Full Code Date Activated Date Inactivated Comments 04/04/2024 2:53 PM 08/25/2024 11:53 AM * Full Code Date Activated Date Inactivated Comments 03/01/2024 9:28 AM 03/01/2024 1:16 PM * Full Code Date Activated Date Inactivated Comments 05/27/2023 12:56 AM 05/27/2023 5:21 PM * Full Code Date Activated Date Inactivated Comments 11/01/2020 4:51 PM 11/10/2020 2:01 PM Care Teams Health Professional Relationship Specialty Start Date End Date Igor Aguilera MD [address] [address] PCP - General Family Practice 10/24/21
[2025-01-05 14:45] LABS: ABG PCO2 50.1 mmHg (35-45); ABG PH Result 7.40 (7.35-7.45); Arterial Blood Gas Hematocrit 45.3 % (42-52); Blood Gas Allen Test Pos; Blood Gas LPM 7.0 %; Blood Gas Operator Identificat WAOCI; Blood Gas Sample Site Radial, left; Blood Gas Sample Type Arterial; Carboxyhemoglobin 0.6 %THgb (0.4-20.1); Glucose Level-ABG 151.0 mg/dL (70-115); HCO3 ABG 31.0 mmol/L (22-26); Ionized Calcium Level - ABG 1.3 mmol/L (1.1-1.4); Methemoglobin < 0.0 % (0.4-1.5); Oxygen Saturation ABG 99.1; PO2 ABG 129.0 mmHg (80.0-100.0); Potassium Level - ABG 6.1 mmol/L (3.5-5.0); Sodium Level - ABG 136.0 mmol/L (131-143)
[2025-01-05 15:31] LABS: Hematocrit 48.1 % (37-53); Hemoglobin 14.90 g/dL (11.27-16.99); Mean Corpuscular HGB Conc 31.0 g/dL (30-55); Mean Corpuscular Hemoglobin 31.6 pg (27-33); Mean Corpuscular Volume 101.9 fl (82-101); Nucleated Red Blood Cells % 0 %; Platelet Count 128 10^3/cmm (157-399); Red Blood Count 4.72 10^6/uL (3.85-5.65); White Blood Count 13.34 10^3/uL (3.29-11.43)
[2025-01-05 15:55] LABS: Lactic Sepsis W/Reflex 3.5 mmol/L (0.5-2.2)
[2025-01-05 16:00] LABS: Albumin Level 3.7 g/dL (3.5-5.2); Alkaline Phosphatase 105 U/L (40-130); Calcium 9.5 mg/dL (8.5-10.5); Carbon Dioxide 28 mmol/L (22-29); Chloride 98 mmol/L (98-107); Creatinine Clr Calc Pharmacy 41.2774; Globulin 2.3 g/dL (1.3-4.6); Sodium 138 mmol/L (136-145)
[2025-01-05 16:20] LABS: Troponin(5th) Baseline 67 ng/L (0-15)
[2025-01-05 16:30] LABS: Respiratory Syncytial Virus Ce NEGATIVE (Negative); SARS-CoV-2 PCR NEGATIVE (Negative)
[2025-01-05 16:34] LABS: Alanine Aminotransferase 26 U/L (0-41); Blood Urea Nitrogen 47 mg/dL (8-23); Glucose 116 mg/dL (65-115); Osmolality Calculated 291 mOsm/kg (285-295); Total Protein 6.0 g/dL (6.6-8.7)
[2025-01-05 16:37] LABS: Anion Gap 20.6 (5-19); Aspartate Amino Transferase 25 U/L (0-40); Potassium 6.6 mmol/L (3.5-5.1)
--- NOTE | 2025-01-05 16:37 | ECG_ITS ---
[facility] Test Date: 2025-01-05 Pat Name: Dajuan Presley Department: Room: Gender: Male [employer] Operator: : 1945 Requested By: Martha Solitario Order Number: [id number] Reading MD: SONIDO DIAS Measurements Intervals [place] Rate: 80 P: 0 RI: 0 QRS: -67 QRSD: 141 T: 28 QT: 360 QTc: 416 Interpretive Statements ATRIAL FIBRILLATION INTRAVENTRICULAR CONDUCTION DELAY [130+ ms QRS DURATION] Compared to ECG 01/05/2025 14:27:27 No significant changes Electronically Signed On 01-07-2025 16:09:30 RECREATION THERAPIST by SONIDO DIAS [email or web address]
[2025-01-05 16:38] LABS: NT Pro B Type Natriuretic Pept 2344 pg/mL (0-450)
--- NOTE | 2025-01-05 16:49 | CTR_ITS ---
PROCEDURE INFORMATION: Exam: CT Head Without Contrast Exam date and time: 01/05/2025 6:09 PM Age: 79 years old Clinical indication: Other: Right sided infection; PT is from home, PT C/O SOB. PT wears 2l nc at baseline. TECHNIQUE: Imaging protocol: Computed tomography of the head without contrast. Radiation optimization: All CT scans at this facility use at least one of these dose optimization techniques: automated exposure control; mA and/or kV adjustment per patient size (includes targeted exams where dose is matched to clinical indication); or iterative reconstruction. COMPARISON: CT head wo con* [id number] 07/19/2024 9:58 PM RADIATION DOSE METRICS: Total DLP (mGy-cm): 1102.43 FINDINGS: Brain: No acute intracranial hemorrhage . Chronic extra-axial collection and/or dural thickening deep to the left craniotomy site (image 37, series 4), similar to prior. Background of volume loss. Mild to moderate nonspecific supratentorial white matter hypoattenuation is seen, most likely chronic microangiopathic changes. Cerebral ventricles: Enlarged consistent with volume loss. Paranasal sinuses: Visualized sinuses are unremarkable. Mastoid air cells: Visualized mastoid air cells are well aerated. Bones: Left pterional craniotomy changes. No definite suspicious calvarial erosion. Soft tissues: Skin defects above the right ear with hypoattenuation measuring fluid attenuation along the right scalp measuring about 2.9 cm. Small nonspecific hyperattenuating foci are seen near the skin defects on images 30 and [address]/CT head wo con* [id number] IMPRESSION: No acute intracranial hemorrhage. Right scalp skin defects above the ear with associated scalp fluid attenuation and small nonspecific hyperattenuating foci. Volume loss intracranially chronic microangiopathy. Left craniotomy changes with chronic dural thickening/fluid.
--- NOTE | 2025-01-05 17:11 | CTR_ITS ---
PROCEDURE INFORMATION: Exam: CT Chest Without Contrast; Diagnostic Exam date and time: 01/05/2025 6:13 PM Age: 79 years old Clinical indication: Other: Sepsis TECHNIQUE: Imaging protocol: Diagnostic computed tomography of the chest without contrast. Radiation optimization: All CT scans at this facility use at least one of these dose optimization techniques: automated exposure control; mA and/or kV adjustment per patient size (includes targeted exams where dose is matched to clinical indication); or iterative reconstruction. COMPARISON: CT chest con [id number] 07/19/2024 10:41 PM RADIATION DOSE METRICS: Total DLP (mGy-cm): 724.98 FINDINGS: Lungs: Atelectatic changes in the lung bases with no focal consolidation. Pleural spaces: Unremarkable. No pneumothorax. No pleural effusion. Heart: Unremarkable. No cardiomegaly. No pericardial effusion. Coronary arteries: Coronary arterial atherosclerotic calcifications are present. Lymph nodes: Unremarkable. No enlarged lymph nodes. Vasculature: Unremarkable. No aortic aneurysm. Bones/joints: Old healed fracture deformity of the proximal right humerus. Prior reverse ball and socket left shoulder arthroplasty. Soft tissues: Unremarkable. CT/CT chest con [id number] IMPRESSION: Atelectatic changes in the lung bases with no focal consolidation.
[2025-01-05] MEDS: calcium gluconate 0.1 gm/mL 10% SDV 10mL 1 GM IVP (17:21)
[2025-01-05 17:46] LABS: Troponin 5 2HR 57.86 ng/L (0-15)
[2025-01-05 17:47] LABS: Troponin 5 2HR Delta -9.14 ABS# (0-10)
[2025-01-05] MEDS: methylPREDNISolone sod succ 125 mg/2 mL INJ IVP (17:47)
[2025-01-05 18:13] LABS: Potassium 6.2 mmol/L (3.5-5.1)
[2025-01-05 18:35] LABS: Reflex Lactate Order REFLEX LACTIC ORDERD
[2025-01-05] MEDS: linezolid premix 600 MG/300 ML PREMIX 300 MG IV (18:35)
[2025-01-05] MEDS: insulin regular-human 100 units/1 mL 10 UNIT IVP (19:02)
[2025-01-05 19:21] LABS: Lactic Acid level (Lactate) 1.5 mmol/L (0.5-2.2)
--- NOTE | 2025-01-05 20:26 | ECG_ITS ---
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
== END 2025-01-05 21:36 | disposition short-term general hospital (02) ==
PROVIDERS: Emergency Provider Emergency Medicine
DX: J44.1 Chronic obstructive pulmonary disease with (acute) exacerbation (principal); A41.9 Sepsis, unspecified organism; S01.80XA Unspecified open wound of other part of head, initial encounter; J96.21 Acute and chronic respiratory failure with hypoxia; E87.5 Hyperkalemia; Z11.52 Encounter for screening for COVID-19; Z87.891 Personal history of nicotine dependence; E78.5 Hyperlipidemia, unspecified; I13.0 Hypertensive heart and chronic kidney disease with heart failure and stage 1 through stage 4 chronic kidney disease, or unspecified chronic kidney disease; N18.9 Chronic kidney disease, unspecified; I50.9 Heart failure, unspecified; Z95.1 Presence of aortocoronary bypass graft; Z86.73 Personal history of transient ischemic attack (TIA), and cerebral infarction without residual deficits; X58.XXXA Exposure to other specified factors, initial encounter
CPT/HCPCS: 36415; 36416; 36600; 70450; 71045; 71250; 80051; 80053; 82330; 82805; 82962; 83605; 83880; 84132; 84484; 85025; 86140; 87040; 87637; 93005; 96361; 96374; 96375; 99285; J0612; J1815; J2020; J2185; J2919; J7030; J7040; J7799